=== PATIENT | male | born 1965 | race Caucasian/White ===

== ENCOUNTER 2016-11-15 15:41 | Emergency (ER) | payer MEDICARE ==
[~2016-11-15] VITALS: Ht 187.9 cm; Wt 140.6 kg
[~2016-11-15 15:41] MED LIST: ANDRODERM2.5 MG/24 T; ANORO INHALER INH; ANTIVERT/2525 M1 PO; ASPIR-TRIN325 MG PO; ASPIRIN325 MG PO; ATROVENT I0.5 MG/2.5 INH; AUGMENTIN 75 ML75 ML PO; AUGMENTIN 875-875 MG PO; AVPAK AZITHROM250 M1 PO; BACTRIM DS 8001 TA1 PO; BACTROBAN NASAL1 GM NS; BACTROBAN OINT0.9 GM NAS; BACTROBAN OINT0.9 GM T; BACTROBAN OINT22 GM T; BENADRYL25 M1 PO; BENADRYL50 MG PO; BRIN10TA PO; BUMETANIDE2 MG PO; BUMEX1 MG PO; CEFUROXIME AXE250 MG PO; CELEXA40 MG PO; COUMADIN10 M1 PO; COUMADIN5 M2 PO; COUMADIN6 M2 PO; Ciprofloxacin500 MG PO; DELTASONE5 MG PO; DOXYCYCLINE100 M3 PO; DOXYCYCLINE100 MG PO; DULER200 INH; DUONEB 3 MG/3 ML3 M1 INH; DUONEB 3 MG/3 ML3 M1 NEB; ELIQUIS5 M1 PO; EMLA 2.5% 30GM30 GM T; FIORICET 325 MG1 TAB PO; FISH OIL 10001000 MG PO; FLOMAX0.4 MG PO; FORADIL AERO0.012 MG INH; GLIPIZIDE10 M2 PO; GUAIFENESIN PO; HYDROCODONE BIT1 T11 PO; IMITREX50 MG PO; JANUVIA100 MG PO; KEFLEX500 M1 PO; KLONOPIN1 M1 PO; KLONOPIN1 MG PO; KLOR-CON 1010 ME1 PO; LASIX40 MG PO; LATU40TA PO; LATU40TA2 PO; LEVAQUIN 750MG750 MG IV; LEVEMIR100 U/ML SC; LEVOFLOXACIN500 MG PO; LIDODERM5% TP; LIPITOR10 MG PO; LISINOPRIL2.5 MG PO; MECLIZINE HCL25 M2 PO; MEDROL DOSEPAK4 MG PO; METFORMIN HYDR850 MG PO; METFORMIN1000 MG PO; METFORMIN500 MG PO; METHADONE HYDROC5 MG PO; METHADONE10 MG; METHADONE10 MG PO; MIRALAX17 GM/DOSE; Meclizine25 MG PO; NOVOLIN R100 U/ML; OMEGA-3 FISH1200 MG PO; OMEPRAZOLE20 MG PO; PHENERGAN25 M1 PO; PHENERGAN25 M3 PO; PREDNICOT20 MG PO; PREDNISONE10 MG PO; PREDNISONE5 MG PO; PREDNISONE50 MG PO; PRINIVIL5 M1 PO; PROAIR HFA0.09 MG/AC IH; PROAIR HFA0.09 MG/AC INH; PROPRANOLOL ER80 MG PO; PROPRANOLOL60 MG PO; PULMICORT RESP0.5 M1 INH; RACEPINEPHRINE INH; REGLAN10 MG PO; SINGULAIR10 MG PO; SOLU-MEDROL40 MG IV; SPIRIVA18 MCG PO; TEMAZEPAM30 MG PO; TESSALON PERLE100 M1 PO; TRAZADONE HYDR100 MG; TRAZADONE HYDR100 MG PO; TRAZODONE HYDR150 MG PO; TRAZODONE150 MG PO; TUDORZA; TYLENOL650 M1 PO; ULTRAM50 MG PO; VIBRAMYCIN100 MG PO; XANAX1 MG PO; XARE15TA PO; XARE20MG PO; XARELTO10 PO; XOPENEX0.63 MG INH; ZITHROMAX Z PA250 MG PO; ZITHROMAX250 MG PO; ZOFRAN ODT4 MG SL; ZOFRAN8 MG; ZYRTEC10 MG PO; [UNRECOGNIZED DRUG - OTHER] IM
[2016-11-15 16:39] LABS: BASO # 0.1 10*3/uL (0.0-0.1); BASO % 0.5 % (0.0-1.0); EOS # 0.3 10*3/uL (0.0-0.4); EOS % 2.3 % (1.0-4.0); HEMATOCRIT 42.2 % (42.0-52.0); HEMOGLOBIN 13.9 g/dl (14.0-18.0); IG # 0.1 10*3/uL (0.0-0.1); LYMPH % 34.5 % (27.0-41.0); MEAN CELL VOLUME 80.7 fl (80.0-94.0); MEAN CORPUSCULAR HGB 26.6 pg (27.0-31.0); MEAN CORPUSCULAR HGB CONC 32.9 g/dl (33.0-37.0); MEAN PLATELET VOLUME 10.1 fl (9.6-12.3); MONO # 0.9 10*3/uL (0.1-1.0); MONO % 7.8 % (3.0-9.0); NEUT # 6.3 10*3/uL (2.3-7.9); NEUT % 54.1 % (47.0-73.0); PLATELET COUNT AUTOMATED 326 10*3/uL (130-400); RED BLOOD COUNT 5.23 10*6/uL (4.50-5.90); RED CELL DISTRI WIDTH 14.8 % (0-14.5); WHITE BLOOD COUNT 11.6 10*3/uL (4.8-10.8)
[2016-11-15 16:55] LABS: BUN 13 mg/dl (7-24); CARBON DIOXIDE 30 mmol/L (21-32); CHLORIDE 98 mmol/L (98-107); EST GLOM FILT AFRICAN AMERICAN > 60 ml/min; GLUCOSE 106 mg/dL (65-99); POTASSIUM 3.4 mmol/L (3.5-5.1); SODIUM 140 mmol/L (136-145)
[2016-11-15 16:58] LABS: TROPONIN I < 0.015 ng/ml (<0.045)
[2016-11-15] MEDS ORDERED: DELTASONE20 M1 PO (17:51)
[2016-11-15] MEDS ORDERED: ZITHROMAX250 MG PO (17:51)
[2016-11-15 18:03] VITALS: BP 135/86
== END 2016-11-15 18:04 | disposition home or self-care (01) ==
LOC: ED 15:41
PROVIDERS: Emergency Medicine
DX: J45.21 Mild intermittent asthma with (acute) exacerbation (principal); F41.9 Anxiety disorder, unspecified; I50.9 Heart failure, unspecified; F32.9 Major depressive disorder, single episode, unspecified; Z86.718 Personal history of other venous thrombosis and embolism; G43.909 Migraine, unspecified, not intractable, without status migrainosus; E03.9 Hypothyroidism, unspecified; E11.9 Type 2 diabetes mellitus without complications; Z79.4 Long term (current) use of insulin; Z79.01 Long term (current) use of anticoagulants; Z88.1 Allergy status to other antibiotic agents; Z88.6 Allergy status to analgesic agent; Z88.8 Allergy status to other drugs, medicaments and biological substances; Z99.81 Dependence on supplemental oxygen

== ENCOUNTER 2016-12-11 16:44 | Inpatient (IN) | payer MEDICARE ==
[~2016-12-11] VITALS: Ht 188 cm; Wt 143.4 kg
--- NOTE | ~2016-12-11 | WRIGHTHP ---
[place], [place] PATIENT HISTORY AND PHYSICAL EXAM NAME: CLARE KUMARI [facility] #: [id number] UNIT #: [id number] ROOM: 516 DOCTOR: JESSICA MOYER MD BIRTHDATE: [birth year] DOS: 12/11/2016 HISTORY OF PRESENT ILLNESS: The patient is 51 years old. The patient comes in with complaints of chest pain, retrosternal. The patient states that the pain is behind his sternum, but it does not radiate into the neck or jaw. He does not have any associated shortness of breath. He is chronically short of breath from his underlying COPD. He denies having any fever, chills, cough or sputum production or leg edema. PAST MEDICAL HISTORY: Significant for: 1. Last hospitalization here a year ago in 02/2016 with exacerbation of chronic obstructive pulmonary disease. 2. His other medical problems are type 2 diabetes mellitus. 3. Factor V Leiden mutation. 4. Bipolar disorder. 5. Moderate depression, major recurrent. 6. Chronic pain syndrome. MEDICATIONS: He is on currently are Eliquis 5 mg b.i.d., DuoNeb q.4h., atorvastatin 10 daily, Bumex 2 mg daily, Celexa 40 daily, Klonopin 1 mg b.i.d., glipizide 10 b.i.d., lisinopril 5 daily, Latuda 40 daily, meclizine 25 mg t.i.d., omeprazole 20 b.i.d., propranolol 80 mg daily, Daliresp 500 mcg daily, Januvia 100 mg daily, Brintellix 10 mg at bedtime, trazodone 150 at bedtime. SOCIAL HISTORY: Nonsmoker, does not use any alcohol. PHYSICAL EXAMINATION: GENERAL: He is awake and alert and oriented. VITAL SIGNS: Graphic trend shows the patient, blood pressure 125/61, pulse of 84, respirations 18, temperature 98.3. LUNGS: Diminished breath sounds, clear. HEART: Regular. ABDOMEN: Obese, soft, nontender. EXTREMITIES: Without any edema, chronic stasis changes noticed in both legs. LABORATORY DATA: WBC count is 10.6, hemoglobin 13.6, hematocrit 42.3. Lactic acid 2.4, which is chronic elevation in this patient. Comprehensive glucose 241, BUN 10, creatinine 1.17. Electrolytes were normal. SGOT was 31, SGPT 86, C-reactive protein 0.5, myoglobin is normal. CK-MB less than 0.05. Troponin less than 0.15. ASSESSMENT AND PLAN: 1. This is a 51-year-old who presents with chest pain. He does have risk factors of coronary artery disease. He had a rule out [place] protocol with troponins ordered. So far the second set of troponin is also normal. Cardiology consultation was obtained. Echocardiogram has been ordered, and the patient most likely will undergo a stress test this morning, and if the stress is negative, he should be able to go home. 2. Type 2 diabetes mellitus, non-insulin dependent. Blood sugars will be checked twice daily, right now he is n.p.o. for his stress test. [place], [place] PATIENT HISTORY AND PHYSICAL EXAM [facility]: [facility] [id number] UNIT #: [id number] ROOM: 516 DOCTOR: JESSICA MOYER MD BIRTHDATE: [birth year] 3. Factor Va Leiden mutation on Eliquis, which will be continued. JESSICA MOYER MD CM:HISPHYS:PATIENT HISTORY AND PHYSICAL EXAMINATION [phone] JESSICA MOYER MD 12/12/16 0704 interface
[~2016-12-11 16:44] MED LIST changes: +DELTASONE20 M1 PO
[2016-12-11 17:11] VITALS: BP 124/81
[2016-12-11 17:46] LABS: BASO # 0.1 10*3/uL (0.0-0.1); BASO % 0.5 % (0.0-1.0); EOS # 0.3 10*3/uL (0.0-0.4); EOS % 2.7 % (1.0-4.0); HEMATOCRIT 42.3 % (42.0-52.0); HEMOGLOBIN 13.6 g/dl (14.0-18.0); IG # 0.1 10*3/uL (0.0-0.1); LYMPH # 3.1 10*3/uL (1.3-4.4); LYMPH % 29.8 % (27.0-41.0); MEAN CELL VOLUME 82.5 fl (80.0-94.0); MEAN CORPUSCULAR HGB 26.5 pg (27.0-31.0); MEAN CORPUSCULAR HGB CONC 32.2 g/dl (33.0-37.0); MEAN PLATELET VOLUME 9.7 fl (9.6-12.3); MONO % 9.3 % (3.0-9.0); NEUT % 56.8 % (47.0-73.0); PLATELET COUNT AUTOMATED 338 10*3/uL (130-400); RED BLOOD COUNT 5.13 10*6/uL (4.50-5.90); RED CELL DISTRI WIDTH 14.1 % (0-14.5); WHITE BLOOD COUNT 10.6 10*3/uL (4.8-10.8)
[2016-12-11 17:55] LABS: INTERNATIONAL NORM RATIO 0.9 (2.0-3.5)
[2016-12-11 18:03] LABS: ALBUMIN 3.4 gm/dl (3.1-4.5); ALKALINE PHOSPHATASE 133 U/L (45-117); BILIRUBIN, TOTAL 0.4 mg/dl (0.2-1.0); BUN 10 mg/dl (7-24); C-REACTIVE PROTEIN 0.58 MG/DL (0-0.3); CARBON DIOXIDE 29 mmol/L (21-32); CHLORIDE 102 mmol/L (98-107); CPK 39 U/L (39-308); EST GLOM FILT AFRICAN AMERICAN > 60 ml/min; GLUCOSE 241 mg/dL (65-99); MAGNESIUM 2.1 mg/dL (1.5-2.1); POTASSIUM 3.6 mmol/L (3.5-5.1); SGOT/AST 31 IU/L (3-35); SGPT/ALT 86 U/L (12-78); SODIUM 141 mmol/L (136-145); TOTAL PROTEIN 7.4 gm/dL (6.4-8.2)
[2016-12-11 18:12] LABS: CKMB < 0.5 ng/ml (0.5-3.6); TROPONIN I < 0.015 ng/ml (<0.045)
[2016-12-11 19:42] LABS: LA>2 REFLEX 2 HR DRAW NOW
[2016-12-11 19:50] VITALS: BP 128/77
[2016-12-11 20:40] VITALS: BP 144/80
[2016-12-11 20:45] VITALS: BP 127/64
[2016-12-11] MEDS ORDERED: DALI500T PO (22:44)
[2016-12-12] VITALS: BP 125/61
[2016-12-12 08:00] VITALS: BP 142/88
[2016-12-12 12:00] VITALS: BP 151/88
[2016-12-12 16:00] VITALS: BP 132/81
== END 2016-12-12 18:59 | disposition home or self-care (01) | DRG 206 ==
LOC: ED 16:44 → 5E 19:15 → EDHOLD 19:15 → 5E 19:58
PROVIDERS: Emergency Medicine
DX: M94.0 Chondrocostal junction syndrome [Tietze] (principal); D68.51 Activated protein C resistance; I50.9 Heart failure, unspecified; F31.9 Bipolar disorder, unspecified; E11.9 Type 2 diabetes mellitus without complications; G89.4 Chronic pain syndrome; J44.9 Chronic obstructive pulmonary disease, unspecified; Z86.718 Personal history of other venous thrombosis and embolism; Z85.72 Personal history of non-Hodgkin lymphomas; Z88.1 Allergy status to other antibiotic agents; Z88.8 Allergy status to other drugs, medicaments and biological substances; Z88.6 Allergy status to analgesic agent

== ENCOUNTER 2016-12-15 11:45 | Inpatient (IN) | payer MEDICARE ==
[~2016-12-15] VITALS: Ht 187.9 cm; Wt 137.0 kg
--- NOTE | ~2016-12-15 | EKG ---
[place], [place] ELECTROCARDIOGRAM REPORT NAME: CLARE KUMARI UNIT #: [id number] ROOM: 412 DOCTOR: TEODORA BUENO MD BIRTHDATE: [birth year] DOS: 12/15/2016 TIME: 12:44. FINDINGS: Normal sinus rhythm, normal electrocardiogram, marked baseline abnormality. TEDOORA BUENO MD CM:EKGRPT:ELECTROCARDIOGRAM REPORT 50 28 TEODORA BUENO MD
--- NOTE | ~2016-12-15 | O ---
[place], [place] OPERATIVE NOTE [id number] UNIT #: [id number] ROOM: 412 DOCTOR: SHAHAB KUMAR,BUDDY BIRTHDATE: [birth year] DOS: 12/20/2016 INDICATIONS: This is a 51-year-old patient who was presented with history of Streptococcus bovis infection, concerned about colonic lesion. I have been asked for assessment of the patient regarding colonic screening. PROCEDURE: Today's procedure part of investigation colonoscopy. PREMEDICATION: Versed and Diprivan. SCOPE: Olympus forward-viewing colonoscope 10L video. REPORT: After putting the patient in the left lateral position and after application of lubricant to the scope, the scope was introduced. Thereafter, under direct visualization, I advanced through the length of colon with great difficulty. Difficulty being retained stool all along. Despite the fact that I did several lavage, detailed visualization was fruitless. Therefore, the scope was withdrawn from the right colon. The patient extubated, tolerated procedure well. IMPRESSION: Retained stool. PLAN AND DISCUSSION: We are going to re-prep the patient and reattempt on Sunday. BUDDY GUDINO MD CM:OPRECORD:OPERATIVE NOTE [id number] BUDDY GUDINO MD 12/20/16 1059 interface
--- NOTE | ~2016-12-15 | PR ---
[place], [place] PROGRESS NOTE [id number] UN[facility] #: [id number] ROOM: 412 DOCTOR: SPARKLE CONTRERAS MD BIRTHDATE: [birth year] DOS: 12/17/2016 SUBJECTIVE: The patient is feeling well, no new complaints. OBJECTIVE: VITAL SIGNS: Blood pressure 132/73, heart rate of 90 beats per minute, breathing 22 times per minute, afebrile, morbid obesity. GENERAL APPEARANCE: Generalized weakness. The patient is alert and oriented x 3, in no visible distress. HEENT AND NECK: Exam within normal limits. CARDIOVASCULAR SYSTEM: Heart rate is regular in rate and rhythm. S1 and S2 normally audible. LUNGS: Clear to auscultation. ABDOMEN: Soft, nontender. No obvious organomegaly. Bowel sounds are present. EXTREMITIES: Without significant cyanosis or edema. Stasis dermatitis in the legs bilaterally. IMPRESSION: 1. The patient's Streptococcus bovis is positive blood cultures. The patient is going for colonoscopy to look for any adenocarcinoma of the colon tomorrow. 2. Check echocardiogram to look for any endocarditis because of positive blood cultures. Streptococcus bovis positive blood cultures. Being treated with IV vancomycin. If he has no signs of vegetations or malignancy, then he can be discharged to home on oral antibiotics within a couple of days. SPARKLE CONTRERAS MD CM:PNTRANS [phone] SPARKLE CONTRERAS MD 12/18/16 1009 interface
--- NOTE | ~2016-12-15 | PR ---
[place], [place] PROGRESS NOTE [id number] UNIT #: [id number] ROOM: 412 DOCTOR: JESSICA MOYER MD BIRTHDATE: [birth year] DOS: 12/18/2016 SUBJECTIVE: The patient is about the same. The patient is not having any complaints. He was fast asleep in bed this morning, was difficult to arouse him on while I was talking to him fell asleep. OBJECTIVE: VITAL SIGNS: Graphic trend shows a pressure 153/79, pulse of 92, respirations 20, temperature 98.0. LUNGS: Clear. HEART: Regular. ABDOMEN: Obese, soft. EXTREMITIES: Without any edema. LABORATORY DATA: Blood cultures drawn on the one specimen grew Strep bovis, the rest were negative. Blood cultures drawn on the preliminary came back negative. ASSESSMENT AND PLAN: 1. Strep bovis bacteremia, awaiting colonoscopy tomorrow. Repeat cultures have all come back negative. Vancomycin trough is very high. The medicine is on hold. 2. Recent admission for chest pain, ruled out for an [place], negative stress test, negative echocardiogram. 3. Type 2 diabetes mellitus, non-insulin dependent. Blood sugars have not been checked since admission. Will order blood sugar coverage. JESSICA MOYER MD CM:PNTRANS [phone] JESSICA MOYER MD 12/19/16 0855 interface
--- NOTE | ~2016-12-15 | CON ---
[place], [place] REPORT OF CONSULTATION NAME: CLARE KUMARI [facility] #: [id number] UNIT #: [id number] ROOM: 412 DOCTOR: MARIIA GUDINO [facility] BIRTHDATE: [birth year] DOS: 12/15/2016 GASTROENDOSCOPIC CONSULTATION REPORT HISTORY OF PRESENT ILLNESS: The patient is a 51-year-old who has presented with chills, not feeling well, diarrhea, change in bowel habits for the past 2 months. He says he has lost control of his stooling. In addition to his problems, he has cellulitis of lower extremities and edema, morbid obesity, in addition to fine tremors. PAST MEDICAL HISTORY: Recently, he has been blood cultured and was found to have Streptococcus bovis in his blood culture. Hypertension, diabetes mellitus, obesity, cellulitis of lower extremities, non-Hodgkin lymphoma, COPD, congestive heart failure, anxiety, asthma. PAST SURGICAL HISTORY: Endoscopy of upper tract, never colonoscopy. SOCIAL HISTORY: Never smoker and never alcohol consumer. However, has been exposed as a child to secondhand smoking. ALLERGIES: CODEINE, NUBAIN, LEVOFLOXACIN, , METFORMIN. MEDICATION: List has been reviewed. FAMILY HISTORY: Supportive. REVIEW OF SYSTEMS: HEENT: Denies double vision, blurred vision. RESPIRATORY: Denies acute shortness of breath. CARDIOVASCULAR: Denies chest pain. DIGESTIVE SYSTEM: No hematemesis, no hematochezia; however, loss of control of stooling and liquid stool, change in bowel habits. PHYSICAL EXAMINATION: GENERAL: Morbidly obese. HEENT: Head normocephalic, nontraumatic. Mouth and buccal mucosa benign. NECK: Supple, no thyromegaly. CHEST: Symmetric anatomy, decreased air entry. HEART: Normal sinus rhythm, no gallop, no murmur. ABDOMEN: Obese, large, soft. No hepato-organomegaly can be assessed due to the enormity of the size of the abdomen. Bowel sounds present. EXTREMITIES: The scratch rogers of cellulitis and stasis dermatitis and 2+ edema bilaterally in lower extremities noticed. NEUROLOGIC: Fine tremors of both hands was noticed. Otherwise, alert and oriented, no asterixis, otherwise no encephalopathy. LABORATORY DATA: Reviewed. Records reviewed. Cultures were assessed. His lactic acid was 1.9. Comprehensive metabolic panel essentially unremarkable except potassium of 3.2, which has been addressed with potassium 40K. Streptococcus bovis in his culture of blood at one occasion has been seen. [place], [place] REPORT OF CONSULTATION NAME: CLARE KUMARI UNIT #: [id number] ROOM: 412 DOCTOR: SHAHAB KUMAR,BUDDY BIRTHDATE: [birth year] Myocardial perfusion scans were noticed, details as outlined. Troponin normal. PLAN AND DISCUSSION: Continuation of his antibiotic therapy. We are going to organize a colonoscopy as soon as he is more controlled and his sepsis is under effective management. Thank you very much indeed. OTHER ADJUNCTIVE DIAGNOSES: As outlined in paragraph past medical, surgical history including non-Hodgkin lymphoma, congestive heart failure, essential hypertension, chronic obstructive pulmonary disease, diabetes mellitus, cellulitis of lower extremity as identified otherwise. BUDDY GUDINO MD CM:CONSTR:REPORT OF CONSULTATION 37 12/16/16 0458 interface
--- NOTE | ~2016-12-15 | DS ---
[place], [place] DISCHARGE SUMMARY NAME: CLARE KUMARI [facility] #: [id number] UNIT #: [id number] ROOM: 412 DOCTOR: SPARKLE CONTRERAS MD BIRTHDATE: [birth year] DOS: 12/20/2016 DATE OF DISCHARGE: 12/20/2016 DISCHARGE DIAGNOSES: 1. The patient going for colonoscopy by Dr. Fung today because of Streptococcus bovis, positive blood cultures. 2. No signs of endocarditis on echocardiogram performed on the 12 of December during his last admission under Dr. Clinton. 3. Morbid obesity. 4. Chronic obstructive pulmonary disease. 5. Type 2 diabetes mellitus. 6. Factor V Leiden mutation. 7. Bipolar disorder. 8. Major depression, recurrent, moderate. 9. Chronic pain syndrome. 10. Chronic primary insomnia. 11. History of benign essential hypertension. 12. Mixed hyperlipidemia. 13. History of stasis dermatitis involving both legs. HOSPITAL COURSE: The patient was admitted because blood cultures from his previous admission came positive for Streptococcus bovis. The patient was admitted and Dr. Fung was consulted to perform a colonoscopy, he will look for adenocarcinoma of the colon. Another reason for admission was to treat him for positive blood cultures with IV vancomycin. The patient had also developed leukocytosis with white cell count up to 11,300. The patient developed severe abdominal pains, which were evaluated by Dr. Noyola, the surgeon and CT scan of the abdomen was found to be normal. Symptoms have improved. Stool for C. diff was negative. Recent admission for chest pains, when he was ruled out for myocardial infarction by Dr. Margaret Clinton and had a normal cardiac stress test. If the patient is doing well after colonoscopy and cleared by Dr. Fung, he can be discharged to home to follow up as an outpatient next week at the office. LABORATORY DATA: Serum electrolytes are normal. Echocardiogram results as mentioned above. C. diff toxin was negative. CT of the abdomen and pelvis were without any acute abnormality. DISCHARGE MANAGEMENT: The patient will be on Augmentin 875 mg twice a day for a week at home, Tylenol p.r.n., Daliresp 500 mcg daily, propranolol 80 mg a day, lisinopril 5 mg a day, citalopram 40 mg a day, Bumex 2 mg daily, glipizide 10 mg a day, Brintellix via nebulizer twice a day, trazodone 150 mg at bedtime, meclizine 25 mg t.i.d. Latuda 40 mg a day, atorvastatin 10 mg a day, apixaban 5 mg b.i.d., omeprazole 20 mg b.i.d., DuoNebs q.i.d., clonazepam 1 mg b.i.d. [place], [place] DISCHARGE SUMMARY NAME: CLARE KUMARI UNIT #: [id number] ROOM: [facility] DOCTOR: SPARKLE CONTRERAS MD BIRTHDATE: [birth year] Follow up at the office next week. SPARKLE CONTRERAS MD CM:MARISELA [id number] SPARKLE CONTRERAS MD 12/20/16 8535 interface
--- NOTE | ~2016-12-15 | WRIGHTHP ---
[place], [place] PATIENT HISTORY AND PHYSICAL EXAM NAME: CLARE KUMARI [facility] #: [id number] UNIT #: [id number] ROOM: 412 DOCTOR: SPARKLE CONTRERAS MD BIRTHDATE: [birth year] DOS: 12/16/2016 HISTORY OF PRESENT ILLNESS: The patient is 51 years old with a past medical history of, 1. Morbid obesity. 2. Chronic obstructive pulmonary disease. 3. Type 2 diabetes mellitus. 4. Factor V Leiden mutation. 5. Bipolar disorder. 6. Major depression, recurrent, moderate. 7. Chronic pain syndrome. 8. Insomnia. 9. Benign essential hypertension. 10. Mixed hyperlipidemia. 11. Stasis dermatitis involving both legs. The patient was admitted to [facility]. The patient was admitted because his blood cultures from recent admission came positive for Streptococcus bovis in 1 of the bottles. The patient admitted for treatment with IV antibiotics and also for getting a colonoscopy and an echocardiogram to look for any bowel tumor or endocarditis. The patient is feeling better now, breathing has improved. No chest pains. No increasing shortness of breath. No other GI or urinary symptoms, just generalized weakness. REVIEW OF SYSTEMS: Negative except for above-mentioned problems. LUNGS: No increasing shortness of breath or wheezing. GASTROINTESTINAL: No nausea, vomiting, diarrhea or constipation. CARDIOVASCULAR SYSTEM: No chest pains or palpitations. FAMILY HISTORY: Noncontributory. HOME MEDICATIONS: Januvia, Daliresp, propranolol, lisinopril, citalopram, Bumex, glipizide, Brintellix, trazodone, meclizine, Latuda, Lipitor, apixaban, omeprazole, DuoNebs, clonazepam. ALLERGIES: KNOWN ALLERGIES TO METFORMIN, NUBAIN, LEVAQUIN, RITUXAN. PHYSICAL EXAMINATION: GENERAL: Alert and oriented x 3, in no visible distress, morbidly obese, generalized weakness. HEENT AND NECK: Extraocular movements are intact. Sclerae are anicteric. Oral mucosa is moist and clean. No obvious facial weakness. Neck is supple without any lymphadenopathy. No thyromegaly. No JVD. No carotid arterial bruits. LUNGS: Slight expiratory wheezing. CARDIOVASCULAR SYSTEM: Heart rate is regular in rate and rhythm. S1 and S2 normally audible. No significant murmur or any other abnormal cardiac sounds. ABDOMEN: Soft, nontender. No obvious organomegaly. Bowel sounds are present. No obvious herniation. EXTREMITIES: Without significant cyanosis or edema. Warm to touch. CENTRAL NERVOUS SYSTEM: Alert and oriented x 3. Cranial nerves II-XII are [place], [place] PATIENT HISTORY AND PHYSICAL EXAM NAME: CLARE KUMARI UNIT #: [id number] ROOM: 412 DOCTOR: SPARKLE CONTRERAS MD BIRTHDATE: [birth year] intact. Speech is normal. The patient is able to move all extremities. Normal muscle strength. Deep tendon reflexes are equal on both sides. Plantars were downgoing. LABORATORY DATA: Hemoglobin 12.7, otherwise normal CBC. Lactic acid at 2.6, reduced to 1.4 when checked again. IMPRESSION: 1. The patient with Streptococcus bovis. Blood cultures positive, admitted and we will check an echocardiogram and also a colonoscopy and treat him with IV vancomycin. 2. Recent exacerbation of chronic obstructive pulmonary disease, which is being treated with antibiotics, oxygen and nebulizer treatments. The patient says he is breathing better. 3. Coagulopathy with Factor V Leiden mutation, patient on apixaban. 4. Type 2 diabetes mellitus. Blood sugars will be monitored and treated and he will be kept on a no concentrated sweet diet. SPARKLE CONTRERAS MD CM:HISPHYS:PATIENT HISTORY AND PHYSICAL EXAMINATION 31 [phone] SPARKLE CONTRERAS MD 12/18/16 0528 interface
--- NOTE | ~2016-12-15 | PR ---
[place], [place] PROGRESS NOTE [id number] UNIT #: [id number] ROOM: 412 DOCTOR: SPARKLE CONTRERAS MD BIRTHDATE: [birth year] DOS: 12/21/2016 SUBJECTIVE: The patient is doing well, asymptomatic, to be discharged to home today, so he can follow up for his colonoscopy tomorrow. OBJECTIVE: VITAL SIGNS: Blood pressure 128/68, heart rate 97 beats per minute, breathing 18 times per minute, temperature 98 degrees Fahrenheit, afebrile. GENERAL: The patient is alert and oriented x 3, in no visible distress. Morbid obesity and generalized weakness. HEENT AND NECK: Exam within normal limits. CARDIOVASCULAR SYSTEM: Heart rate is regular in rate and rhythm. S1 and S2 normally audible. LUNGS: Somewhat decreased breath sounds. ABDOMEN: Soft, nontender. No obvious organomegaly. Bowel sounds are present. EXTREMITIES: Without significant cyanosis or edema. IMPRESSION: 1. The patient is positive for Streptococcus bovis in blood cultures, treated with IV vancomycin. The patient to be continued on Augmentin at home. 2. The patient to undergo colonoscopy to look for adenocarcinoma because of the positive Strep bovis blood cultures. He failed colonoscopy yesterday because of poor prep, but he is scheduled for another colonoscopy tomorrow after a re-prep by Dr. Fung. 3. Type 2 diabetes mellitus. Blood sugars monitored, controlled. 4. Adult failure to thrive with multiple medical problems including chronic obstructive pulmonary disease, breathing issues and recurrent admissions to the hospital and ER visits for the same reason. 5. Benign essential hypertension with controlled blood pressures. The patient to go home today, follow up for colonoscopy tomorrow and see me in the office on Sunday. SPARKLE CONTRERAS MD CM:PNTRANS [phone] SPARKLE CONTRERAS MD 12/22/16 0141 interface
--- NOTE | ~2016-12-15 | PR ---
[place], [place] PROGRESS NOTE [id number] UNIT #: [id number] ROOM: 412 DOCTOR: JESSICA MOYER MD BIRTHDATE: [birth year] DOS: 12/18/2016 SUBJECTIVE: The patient is doing fine without any complaints. He is pretty sleepy this morning, does not have any complaints of chest pains or palpitations, is awaiting echocardiogram and colonoscopy. OBJECTIVE: VITAL SIGNS: Graphic trend shows that he is afebrile. Blood pressure is 152/84, pulse of 86, respirations 18, temperature 97.4. LUNGS: Diminished breath sounds. No wheezes, rales or rhonchi heard. HEART: Regular. ABDOMEN: Obese, soft. EXTREMITIES: Without any edema. ASSESSMENT AND PLAN: 1. Streptococcus bovis bacteremia. The patient is getting an echocardiogram today to rule out endocarditis. Repeat blood cultures so far have come back negative. This culture was drawn on a peripheral site, not from his [employer]. 2. Recent complaints of chest pain for which he was ruled out with a negative stress test. 3. Strep bovis bacteremia. Colonoscopy is to be done today. Repeat blood cultures on the 12/15/2016 drawn in the ER this admission have preliminary showed no bacterial growth. CT of the abdomen and pelvis was also unremarkable except for steatohepatitis. White cell count is elevated at 11.0. Comprehensive is normal. JESSICA MOYER MD CM:PNMARY JANE [id number] JESSICA MOYER MD 12/18/16 0822 interface
[~2016-12-15 11:45] MED LIST changes: +DALI500T PO
[2016-12-15 11:53] VITALS: BP 135/81
[2016-12-15 13:12] LABS: BASO # 0.1 10*3/uL (0.0-0.1); BASO % 0.7 % (0.0-1.0); EOS # 0.2 10*3/uL (0.0-0.4); EOS % 1.7 % (1.0-4.0); HEMATOCRIT 43.2 % (42.0-52.0); HEMOGLOBIN 14.3 g/dl (14.0-18.0); IG # 0.1 10*3/uL (0.0-0.1); LYMPH # 3.1 10*3/uL (1.3-4.4); LYMPH % 34.2 % (27.0-41.0); MEAN CELL VOLUME 79.9 fl (80.0-94.0); MEAN CORPUSCULAR HGB 26.4 pg (27.0-31.0); MEAN CORPUSCULAR HGB CONC 33.1 g/dl (33.0-37.0); MEAN PLATELET VOLUME 9.9 fl (9.6-12.3); MONO # 0.9 10*3/uL (0.1-1.0); MONO % 9.8 % (3.0-9.0); NEUT # 4.7 10*3/uL (2.3-7.9); NEUT % 52.6 % (47.0-73.0); PLATELET COUNT AUTOMATED 336 10*3/uL (130-400); RED BLOOD COUNT 5.41 10*6/uL (4.50-5.90); RED CELL DISTRI WIDTH 13.9 % (0-14.5)
[2016-12-15 13:32] LABS: ALBUMIN 3.7 gm/dl (3.1-4.5); ALKALINE PHOSPHATASE 132 U/L (45-117); BILIRUBIN, TOTAL 0.5 mg/dl (0.2-1.0); BUN 7 mg/dl (7-24); CARBON DIOXIDE 30 mmol/L (21-32); CHLORIDE 99 mmol/L (98-107); EST GLOM FILT AFRICAN AMERICAN > 60 ml/min; GLUCOSE 173 mg/dL (65-99); POTASSIUM 3.2 mmol/L (3.5-5.1); SGOT/AST 58 IU/L (3-35); SGPT/ALT 101 U/L (12-78); SODIUM 139 mmol/L (136-145); TOTAL PROTEIN 7.8 gm/dL (6.4-8.2)
[2016-12-15 13:35] LABS: TROPONIN I < 0.015 ng/ml (<0.045)
[2016-12-15 15:06] VITALS: BP 136/88
[2016-12-15 15:07] LABS: LA>2 REFLEX 2 HR DRAW NOW
[2016-12-15 15:25] VITALS: BP 144/82
[2016-12-15 16:00] VITALS: BP 144/82
[2016-12-15 20:00] VITALS: BP 144/83
[2016-12-16] VITALS: BP 151/83
[2016-12-16 06:40] LABS: BASO # 0.1 10*3/uL (0.0-0.1); BASO % 0.7 % (0.0-1.0); EOS # 0.2 10*3/uL (0.0-0.4); EOS % 2.1 % (1.0-4.0); HEMATOCRIT 38.7 % (42.0-52.0); HEMOGLOBIN 12.7 g/dl (14.0-18.0); IG # 0.1 10*3/uL (0.0-0.1); LYMPH # 3.5 10*3/uL (1.3-4.4); LYMPH % 41.3 % (27.0-41.0); MEAN CELL VOLUME 81.6 fl (80.0-94.0); MEAN CORPUSCULAR HGB 26.8 pg (27.0-31.0); MEAN CORPUSCULAR HGB CONC 32.8 g/dl (33.0-37.0); MEAN PLATELET VOLUME 9.9 fl (9.6-12.3); MONO # 0.8 10*3/uL (0.1-1.0); MONO % 9.7 % (3.0-9.0); NEUT # 3.8 10*3/uL (2.3-7.9); NEUT % 45.4 % (47.0-73.0); PLATELET COUNT AUTOMATED 289 10*3/uL (130-400); RED BLOOD COUNT 4.74 10*6/uL (4.50-5.90); WHITE BLOOD COUNT 8.4 10*3/uL (4.8-10.8)
[2016-12-16 06:59] LABS: BUN 8 mg/dl (7-24); CARBON DIOXIDE 33 mmol/L (21-32); CHLORIDE 101 mmol/L (98-107); EST GLOM FILT AFRICAN AMERICAN > 60 ml/min; GLUCOSE 181 mg/dL (65-99); POTASSIUM 3.9 mmol/L (3.5-5.1); SODIUM 142 mmol/L (136-145)
[2016-12-16 08:00] VITALS: BP 146/80
[2016-12-16 12:00] VITALS: BP 150/79
[2016-12-16 16:00] VITALS: BP 149/84
[2016-12-16 20:00] VITALS: BP 131/84
[2016-12-17] VITALS: BP 123/69
[2016-12-17 04:00] VITALS: BP 125/60
[2016-12-17 05:58] LABS: BUN 10 mg/dl (7-24); CARBON DIOXIDE 33 mmol/L (21-32); CHLORIDE 100 mmol/L (98-107); EST GLOM FILT AFRICAN AMERICAN > 60 ml/min; GLUCOSE 207 mg/dL (65-99); POTASSIUM 3.8 mmol/L (3.5-5.1); SODIUM 141 mmol/L (136-145)
[2016-12-17 06:01] LABS: VANCOMYCIN TROUGH 17.5 ug/mL (10-20)
[2016-12-17 06:09] LABS: BASO # 0.1 10*3/uL (0.0-0.1); BASO % 0.6 % (0.0-1.0); EOS # 0.2 10*3/uL (0.0-0.4); EOS % 2.1 % (1.0-4.0); HEMATOCRIT 40.1 % (42.0-52.0); HEMOGLOBIN 12.7 g/dl (14.0-18.0); IG # 0.2 10*3/uL (0.0-0.1); LYMPH # 4.2 10*3/uL (1.3-4.4); LYMPH % 37.7 % (27.0-41.0); MEAN CELL VOLUME 84.2 fl (80.0-94.0); MEAN CORPUSCULAR HGB 26.7 pg (27.0-31.0); MEAN CORPUSCULAR HGB CONC 31.7 g/dl (33.0-37.0); MEAN PLATELET VOLUME 10.3 fl (9.6-12.3); MONO # 1.1 10*3/uL (0.1-1.0); MONO % 10.1 % (3.0-9.0); NEUT # 5.4 10*3/uL (2.3-7.9); NEUT % 48.2 % (47.0-73.0); PLATELET COUNT AUTOMATED 304 10*3/uL (130-400); RED BLOOD COUNT 4.76 10*6/uL (4.50-5.90); WHITE BLOOD COUNT 11.3 10*3/uL (4.8-10.8)
[2016-12-17 08:00] VITALS: BP 138/86
[2016-12-17 12:00] VITALS: BP 122/73
[2016-12-17 16:00] VITALS: BP 132/73
[2016-12-17 20:00] VITALS: BP 130/70
[2016-12-18 00:38] VITALS: BP 139/76
[2016-12-18 04:00] VITALS: BP 152/84
[2016-12-18 06:12] LABS: BASO # 0.1 10*3/uL (0.0-0.1); BASO % 0.5 % (0.0-1.0); EOS # 0.3 10*3/uL (0.0-0.4); EOS % 2.5 % (1.0-4.0); HEMATOCRIT 39.8 % (42.0-52.0); HEMOGLOBIN 12.6 g/dl (14.0-18.0); IG # 0.1 10*3/uL (0.0-0.1); LYMPH # 3.9 10*3/uL (1.3-4.4); LYMPH % 35.3 % (27.0-41.0); MEAN CELL VOLUME 82.7 fl (80.0-94.0); MEAN CORPUSCULAR HGB 26.2 pg (27.0-31.0); MEAN CORPUSCULAR HGB CONC 31.7 g/dl (33.0-37.0); MEAN PLATELET VOLUME 10.4 fl (9.6-12.3); MONO % 9.5 % (3.0-9.0); NEUT # 5.6 10*3/uL (2.3-7.9); PLATELET COUNT AUTOMATED 274 10*3/uL (130-400); RED BLOOD COUNT 4.81 10*6/uL (4.50-5.90); RED CELL DISTRI WIDTH 13.9 % (0-14.5)
[2016-12-18 06:42] LABS: ALBUMIN 3.2 gm/dl (3.1-4.5); BUN 10 mg/dl (7-24); CARBON DIOXIDE 31 mmol/L (21-32); CHLORIDE 102 mmol/L (98-107); EST GLOM FILT AFRICAN AMERICAN > 60 ml/min; GLUCOSE 189 mg/dL (65-99); POTASSIUM 3.5 mmol/L (3.5-5.1); SGOT/AST 24 IU/L (3-35); SGPT/ALT 71 U/L (12-78); SODIUM 136 mmol/L (136-145)
[2016-12-18 06:45] LABS: ALKALINE PHOSPHATASE 117 U/L (45-117); BILIRUBIN, TOTAL 0.3 mg/dl (0.2-1.0); CEA 3.8 ng/mL; TOTAL PROTEIN 6.7 gm/dL (6.4-8.2)
[2016-12-18 08:00] VITALS: BP 150/72
[2016-12-18 12:00] VITALS: BP 128/90
[2016-12-18 16:00] VITALS: BP 108/87
[2016-12-18 20:00] VITALS: BP 129/77
[2016-12-19] VITALS: BP 153/79
[2016-12-19 08:00] VITALS: BP 156/83
[2016-12-19 12:00] VITALS: BP 142/73
[2016-12-19 16:00] VITALS: BP 145/71
[2016-12-19 20:00] VITALS: BP 154/89
[2016-12-20] VITALS (9 sets, daily range): BP systolic 111–153; BP diastolic 69–83
[2016-12-20] MEDS ORDERED: AUGMENTIN 875-875 MG PO (10:10)
[2016-12-21] VITALS: BP 138/83
[2016-12-21 08:00] VITALS: BP 128/68
[2016-12-21 12:00] VITALS: BP 136/72
[2016-12-21 16:00] VITALS: BP 122/82
== END 2016-12-21 18:06 | disposition home health service (06) | DRG 392 ==
LOC: ED 11:45 → 4E 13:47 → EDHOLD 13:47 → 4E 14:33
PROVIDERS: Internal Medicine; Student in an Organized Health Care Education/Training Program
PROC: 0DBE8ZX Excision of Large Intestine, Via Natural or Artificial Opening Endoscopic, Diagnostic (ICD-10-PCS; principal; 2016-12-20)
DX: K59.00 Constipation, unspecified (principal); D68.51 Activated protein C resistance; E11.8 Type 2 diabetes mellitus with unspecified complications; R78.81 Bacteremia; D68.2 Hereditary deficiency of other clotting factors; I11.0 Hypertensive heart disease with heart failure; I50.9 Heart failure, unspecified; E66.01 Morbid (severe) obesity due to excess calories; L03.119 Cellulitis of unspecified part of limb; R19.7 Diarrhea, unspecified; F31.9 Bipolar disorder, unspecified; R07.9 Chest pain, unspecified; G89.4 Chronic pain syndrome; E78.2 Mixed hyperlipidemia; I87.2 Venous insufficiency (chronic) (peripheral); Z88.1 Allergy status to other antibiotic agents; Z88.5 Allergy status to narcotic agent; Z88.8 Allergy status to other drugs, medicaments and biological substances; Z68.39 Body mass index [BMI] 39.0-39.9, adult; B95.4 Other streptococcus as the cause of diseases classified elsewhere; G43.909 Migraine, unspecified, not intractable, without status migrainosus; Z82.49 Family history of ischemic heart disease and other diseases of the circulatory system; F41.9 Anxiety disorder, unspecified; R62.7 Adult failure to thrive; J44.9 Chronic obstructive pulmonary disease, unspecified; R10.9 Unspecified abdominal pain

== ENCOUNTER 2016-12-15 11:45 | Day surgery (SDC) | payer MEDICARE ==
[~2016-12-15] VITALS: Ht 187.9 cm; Wt 141.1 kg
--- NOTE | ~2016-12-15 | O ---
[place], [place] OPERATIVE NOTE NAME: CLARE KUMARI [facility] #: [id number] UNIT #: [id number] ROOM: DOCTOR: SHAHAB KUMAR,[facility] BIRTHDATE: [birth year] DOS: 12/22/2016 GASTROENDOSCOPIC REPORT INDICATIONS: The patient has presented with multiple medical problems, among which was sepsis. Strep bovis was cultured in his blood. He has been on antibiotic. He was sent home yesterday and brought back as outpatient for assessment of the colon. He had pulmonary infiltration that was addressed. PROCEDURE: Today's procedure part of investigation is colonoscopy plus multiple polypectomies and biopsies and tattoo markings. PREMEDICATION: Versed and Diprivan. SCOPE: Olympus colonoscope 10L video. REPORT: After putting the patient in the left lateral position and after application of lubricant to rectal pouch and digital examination, scope was introduced. Thereafter, under direct visualization, I advanced through the length of colon without difficulty. Base of the cecum explored, appendiceal orifice identified, and ileocecal valve was identified. Some retained stool in the cecum was identified. However, the scope was gradually withdrawn to the hepatic flexure, 3 ____ polypoid lesions were snare polypectomized. Scope was withdrawn to about 40 cm. There was an invaded polypoid lesion with broad base and rubbery character. This was multiple times, biopsied. This was considered to be adenocarcinoma, site was tattoo marked. Scope was again withdrawn back to approximately 20 cm, another infiltrative polypoid lesion was identified. This was again approximately 2.5-3 cm, the site was tattooed and biopsies obtained expecting again carcinoma. Scope was gradually withdrawn. The patient extubated, tolerated the procedure well. IMPRESSION: Three ____ polypoid lesions at the hepatic flexure, status post snare polypectomy. Two polypoid lesions at sigmoid colon 40 cm and 20 cm area with invasion of the base, each approximately 3 cm, expected to be adenocarcinoma in both, photographed, biopsied. The patient extubated, tolerated procedure well. Tattoo marking was done. PLAN AND DISCUSSION: Awaiting biopsy results. Strep bovis can be explained based on carcinoma polypoid lesions in the sigmoid at 40 cm as well as 20 cm, which is both biopsied, photographed, and tattoo marked. Continuation with the same plans of antibiotic and followup as outpatient for surgical management. [place], [place] OPERATIVE NOTE NAME: CLARE KUMARI UNIT #: [id number] ROOM: DOCTOR: SHAHAB KUMAR,BUDDY BIRTHDATE: [birth year] BUDDY GUDINO MD CM:OPRECORD:OPERATIVE NOTE [phone] SPARKLE CONTRERAS MD and JESSICA GUDINO MD 12/23/16 0632 interface
[2016-12-20] MEDS ORDERED: AUGMENTIN 875-875 MG PO (10:10)
[2016-12-22 15:00] VITALS: BP 130/91
[2016-12-22 17:31] VITALS: BP 94/56
[2016-12-22 17:46] VITALS: BP 112/56
[2016-12-22 18:01] VITALS: BP 118/47
== END 2016-12-22 | disposition home or self-care (01) ==
LOC: SDC 12-22 07:43 → EDSTATUS 12-22 13:00
DX: Z12.11 Encounter for screening for malignant neoplasm of colon (principal); D12.3 Benign neoplasm of transverse colon; D12.5 Benign neoplasm of sigmoid colon; E66.01 Morbid (severe) obesity due to excess calories; J44.9 Chronic obstructive pulmonary disease, unspecified; E11.9 Type 2 diabetes mellitus without complications; F31.9 Bipolar disorder, unspecified; D68.51 Activated protein C resistance; G47.00 Insomnia, unspecified; E78.2 Mixed hyperlipidemia; A40.0 Sepsis due to streptococcus, group A

== ENCOUNTER 2017-03-09 23:54 | Emergency (ER) | payer MEDICARE ==
[~2017-03-09] VITALS: Ht 187.9 cm; Wt 124.7 kg
[2017-03-10 00:01] VITALS: BP 118/62
[2017-03-10 01:01] LABS: BASO # 0.1 10*3/uL (0.0-0.1); BASO % 0.8 % (0.0-1.0); EOS # 0.3 10*3/uL (0.0-0.4); EOS % 2.2 % (1.0-4.0); HEMOGLOBIN 13.7 g/dl (14.0-18.0); IG # 0.1 10*3/uL (0.0-0.1); LYMPH % 42.5 % (27.0-41.0); MEAN CELL VOLUME 81.7 fl (80.0-94.0); MEAN CORPUSCULAR HGB 26.7 pg (27.0-31.0); MEAN CORPUSCULAR HGB CONC 32.6 g/dl (33.0-37.0); MEAN PLATELET VOLUME 10.1 fl (9.6-12.3); MONO # 1.1 10*3/uL (0.1-1.0); MONO % 9.2 % (3.0-9.0); NEUT # 5.2 10*3/uL (2.3-7.9); NEUT % 44.5 % (47.0-73.0); PLATELET COUNT AUTOMATED 295 10*3/uL (130-400); RED BLOOD COUNT 5.14 10*6/uL (4.50-5.90); RED CELL DISTRI WIDTH 15.4 % (0-14.5); WHITE BLOOD COUNT 11.8 10*3/uL (4.8-10.8)
[2017-03-10 01:15] LABS: ALBUMIN 3.2 gm/dl (3.1-4.5); ALKALINE PHOSPHATASE 150 U/L (45-117); BILIRUBIN, TOTAL 0.3 mg/dl (0.2-1.0); BUN 7 mg/dl (7-24); CARBON DIOXIDE 32 mmol/L (21-32); CHLORIDE 98 mmol/L (98-107); EST GLOM FILT AFRICAN AMERICAN > 60 ml/min; GLUCOSE 143 mg/dL (65-99); POTASSIUM 3.3 mmol/L (3.5-5.1); SGOT/AST 45 IU/L (3-35); SGPT/ALT 74 U/L (12-78); SODIUM 139 mmol/L (136-145); TOTAL PROTEIN 7.5 gm/dL (6.4-8.2)
== END 2017-03-10 02:38 | disposition home or self-care (01) ==
LOC: ED 23:54
PROVIDERS: Emergency Medicine
DX: R10.84 Generalized abdominal pain (principal); R11.0 Nausea; Z88.6 Allergy status to analgesic agent; Z88.1 Allergy status to other antibiotic agents; Z88.8 Allergy status to other drugs, medicaments and biological substances; Z79.899 Other long term (current) drug therapy

== ENCOUNTER 2017-03-17 23:26 | Emergency (ER) | payer MEDICARE ==
[~2017-03-17] VITALS: Ht 187.9 cm; Wt 123.8 kg
[~2017-03-17 23:26] MED LIST changes: +MIRALAX POWDER255 G1 PO; +PERCOCET 325 MG1 TA2 PO
[2017-03-17 23:36] VITALS: BP 135/81
[2017-03-18 00:24] LABS: BASO # 0.1 10*3/uL (0.0-0.1); BASO % 0.4 % (0.0-1.0); EOS # 0.2 10*3/uL (0.0-0.4); EOS % 1.5 % (1.0-4.0); HEMATOCRIT 42.3 % (42.0-52.0); HEMOGLOBIN 13.8 g/dl (14.0-18.0); IG # 0.1 10*3/uL (0.0-0.1); LYMPH # 4.2 10*3/uL (1.3-4.4); MEAN CELL VOLUME 80.1 fl (80.0-94.0); MEAN CORPUSCULAR HGB 26.1 pg (27.0-31.0); MEAN CORPUSCULAR HGB CONC 32.6 g/dl (33.0-37.0); MEAN PLATELET VOLUME 10.1 fl (9.6-12.3); MONO % 7.6 % (3.0-9.0); NEUT % 58.9 % (47.0-73.0); PLATELET COUNT AUTOMATED 337 10*3/uL (130-400); RED BLOOD COUNT 5.28 10*6/uL (4.50-5.90); RED CELL DISTRI WIDTH 15.3 % (0-14.5); WHITE BLOOD COUNT 13.5 10*3/uL (4.8-10.8)
[2017-03-18 00:41] LABS: ALBUMIN 3.1 gm/dl (3.1-4.5); ALKALINE PHOSPHATASE 141 U/L (45-117); BILIRUBIN, TOTAL 0.6 mg/dl (0.2-1.0); BUN 5 mg/dl (7-24); CARBON DIOXIDE 27 mmol/L (21-32); CHLORIDE 103 mmol/L (98-107); EST GLOM FILT AFRICAN AMERICAN > 60 ml/min; GLUCOSE 90 mg/dL (65-99); MAGNESIUM 1.9 mg/dL (1.5-2.1); POTASSIUM 3.2 mmol/L (3.5-5.1); SGOT/AST 41 IU/L (3-35); SGPT/ALT 56 U/L (12-78); SODIUM 138 mmol/L (136-145); TOTAL PROTEIN 7.6 gm/dL (6.4-8.2)
[2017-03-18] MEDS ORDERED: Zofran4 MG PO (01:01)
== END 2017-03-18 01:11 | disposition home or self-care (01) ==
LOC: ED 23:26
PROVIDERS: Student in an Organized Health Care Education/Training Program
DX: R11.2 Nausea with vomiting, unspecified (principal); R10.9 Unspecified abdominal pain; K59.00 Constipation, unspecified; C18.9 Malignant neoplasm of colon, unspecified; E78.5 Hyperlipidemia, unspecified; I11.0 Hypertensive heart disease with heart failure; I50.9 Heart failure, unspecified; E11.9 Type 2 diabetes mellitus without complications; J45.909 Unspecified asthma, uncomplicated; J44.9 Chronic obstructive pulmonary disease, unspecified; Z88.1 Allergy status to other antibiotic agents; Z86.718 Personal history of other venous thrombosis and embolism; Z88.6 Allergy status to analgesic agent; Z88.8 Allergy status to other drugs, medicaments and biological substances; Z79.899 Other long term (current) drug therapy

== ENCOUNTER 2017-04-03 13:38 | Emergency (ER) | payer MEDICARE ==
[~2017-04-03] VITALS: Wt 123.8 kg
[~2017-04-03 13:38] MED LIST changes: +Zofran4 MG PO
[2017-04-03 14:53] LABS: BASO # 0.1 10*3/uL (0.0-0.1); BASO % 0.6 % (0.0-1.0); EOS # 0.2 10*3/uL (0.0-0.4); EOS % 1.9 % (1.0-4.0); HEMATOCRIT 41.3 % (42.0-52.0); HEMOGLOBIN 13.3 g/dl (14.0-18.0); IG # 0.1 10*3/uL (0.0-0.1); LYMPH % 34.6 % (27.0-41.0); MEAN CELL VOLUME 80.5 fl (80.0-94.0); MEAN CORPUSCULAR HGB 25.9 pg (27.0-31.0); MEAN CORPUSCULAR HGB CONC 32.2 g/dl (33.0-37.0); MONO # 1.1 10*3/uL (0.1-1.0); MONO % 9.2 % (3.0-9.0); NEUT # 6.1 10*3/uL (2.3-7.9); NEUT % 52.7 % (47.0-73.0); PLATELET COUNT AUTOMATED 322 10*3/uL (130-400); RED BLOOD COUNT 5.13 10*6/uL (4.50-5.90); RED CELL DISTRI WIDTH 14.7 % (0-14.5); WHITE BLOOD COUNT 11.6 10*3/uL (4.8-10.8)
[2017-04-03 15:08] LABS: ALBUMIN 3.4 gm/dl (3.1-4.5); ALKALINE PHOSPHATASE 118 U/L (45-117); BILIRUBIN, TOTAL 0.3 mg/dl (0.2-1.0); BUN 10 mg/dl (7-24); C-REACTIVE PROTEIN 1.11 MG/DL (0-0.3); CARBON DIOXIDE 27 mmol/L (21-32); CHLORIDE 103 mmol/L (98-107); EST GLOM FILT AFRICAN AMERICAN > 60 ml/min; GLUCOSE 91 mg/dL (65-99); MAGNESIUM 2.1 mg/dL (1.5-2.1); SGOT/AST 15 IU/L (3-35); SGPT/ALT 29 U/L (12-78); SODIUM 137 mmol/L (136-145); TOTAL PROTEIN 7.3 gm/dL (6.4-8.2)
[2017-04-03 17:53] VITALS: BP 115/73
== END 2017-04-03 17:44 | disposition home or self-care (01) ==
LOC: ED 13:38
PROVIDERS: Emergency Medicine
DX: Z48.01 Encounter for change or removal of surgical wound dressing (principal); Z88.1 Allergy status to other antibiotic agents; Z88.2 Allergy status to sulfonamides; Z88.8 Allergy status to other drugs, medicaments and biological substances; Z79.899 Other long term (current) drug therapy

== ENCOUNTER → 2017-05-22 | Outpatient (CLI) | payer MEDICARE, MEDICAID | LOC: WOUNDCARE 01:11 | DX: T81.89XA Other complications of procedures, not elsewhere classified, initial encounter (principal); E11.9 Type 2 diabetes mellitus without complications; Z85.030 Personal history of malignant carcinoid tumor of large intestine; Z93.3 Colostomy status; Y83.8 Other surgical procedures as the cause of abnormal reaction of the patient, or of later complication, without mention of misadventure at the time of the procedure; Y92.89 Other specified places as the place of occurrence of the external cause ==

== ENCOUNTER → 2017-05-29 | Outpatient (CLI) | payer MEDICARE, MEDICAID | END | disposition home or self-care (01) | LOC: WOUNDCARE 02:13 | DX: T81.89XD Other complications of procedures, not elsewhere classified, subsequent encounter (principal); S31.105D Unspecified open wound of abdominal wall, periumbilic region without penetration into peritoneal cavity, subsequent encounter; Z85.030 Personal history of malignant carcinoid tumor of large intestine; Z43.3 Encounter for attention to colostomy; Y83.8 Other surgical procedures as the cause of abnormal reaction of the patient, or of later complication, without mention of misadventure at the time of the procedure ==

== ENCOUNTER → 2017-05-29 | Outpatient (CLI) | payer MEDICARE | END | disposition home or self-care (01) | LOC: LAB 14:11 | DX: C18.9 Malignant neoplasm of colon, unspecified (principal) ==

== ENCOUNTER → 2017-06-05 | Outpatient (CLI) | payer MEDICARE | END | disposition home or self-care (01) | LOC: WOUNDCARE 04:59 | DX: T81.89XD Other complications of procedures, not elsewhere classified, subsequent encounter (principal); Z85.030 Personal history of malignant carcinoid tumor of large intestine; E11.9 Type 2 diabetes mellitus without complications; Z43.3 Encounter for attention to colostomy; Y83.8 Other surgical procedures as the cause of abnormal reaction of the patient, or of later complication, without mention of misadventure at the time of the procedure ==

== ENCOUNTER → 2017-06-12 | Outpatient (CLI) | payer MEDICARE | END | disposition home or self-care (01) | LOC: WOUNDCARE 03:02 | DX: T81.89XD Other complications of procedures, not elsewhere classified, subsequent encounter (principal); Z85.038 Personal history of other malignant neoplasm of large intestine; X58.XXXD Exposure to other specified factors, subsequent encounter ==

== ENCOUNTER → 2017-06-19 | Outpatient (CLI) | payer MEDICARE | END | disposition home or self-care (01) | LOC: WOUNDCARE 01:30 | DX: T81.89XD Other complications of procedures, not elsewhere classified, subsequent encounter (principal); E13.9 Other specified diabetes mellitus without complications; Z85.030 Personal history of malignant carcinoid tumor of large intestine; Z43.3 Encounter for attention to colostomy; Y83.8 Other surgical procedures as the cause of abnormal reaction of the patient, or of later complication, without mention of misadventure at the time of the procedure ==

== ENCOUNTER → 2017-06-26 | Outpatient (CLI) | payer MEDICARE | END | disposition home or self-care (01) | LOC: WOUNDCARE 02:32 → RESCLI 02:32 | DX: T81.89XD Other complications of procedures, not elsewhere classified, subsequent encounter (principal); E11.9 Type 2 diabetes mellitus without complications; Z85.030 Personal history of malignant carcinoid tumor of large intestine; Z43.3 Encounter for attention to colostomy; Y83.8 Other surgical procedures as the cause of abnormal reaction of the patient, or of later complication, without mention of misadventure at the time of the procedure ==

== ENCOUNTER → 2017-07-03 | Outpatient (CLI) | payer MEDICARE | END | disposition home or self-care (01) | LOC: WOUNDCARE 01:44 | DX: T81.89XD Other complications of procedures, not elsewhere classified, subsequent encounter (principal); E11.9 Type 2 diabetes mellitus without complications; Z85.030 Personal history of malignant carcinoid tumor of large intestine; Z43.3 Encounter for attention to colostomy; Y83.8 Other surgical procedures as the cause of abnormal reaction of the patient, or of later complication, without mention of misadventure at the time of the procedure ==

== ENCOUNTER → 2017-07-05 | Outpatient (CLI) | payer MEDICARE | LOC: CT 10:00 | DX: K76.89 Other specified diseases of liver (principal); E13.9 Other specified diabetes mellitus without complications; E43 Unspecified severe protein-calorie malnutrition; Z85.030 Personal history of malignant carcinoid tumor of large intestine; Z98.890 Other specified postprocedural states ==

== ENCOUNTER → 2017-07-17 | Outpatient (CLI) | payer MEDICARE | END | disposition home or self-care (01) | LOC: WOUNDCARE 01:12 | DX: T81.89XD Other complications of procedures, not elsewhere classified, subsequent encounter (principal); E11.9 Type 2 diabetes mellitus without complications; Z85.030 Personal history of malignant carcinoid tumor of large intestine; Y83.8 Other surgical procedures as the cause of abnormal reaction of the patient, or of later complication, without mention of misadventure at the time of the procedure ==

== ENCOUNTER → 2017-07-24 | Day surgery (SDC) | payer MEDICARE ==
[~2017-07-24] VITALS: Ht 187.9 cm; Wt 124.7 kg
[2017-07-24 07:00] VITALS: BP 157/76
[2017-07-24 09:18] VITALS: BP 105/48
[2017-07-24 09:33] VITALS: BP 105/49
[2017-07-24 09:48] VITALS: BP 108/54
== END | disposition home or self-care (01) ==
LOC: SDC 07-20 11:00
DX: Z08 Encounter for follow-up examination after completed treatment for malignant neoplasm (principal); D12.5 Benign neoplasm of sigmoid colon; Z85.030 Personal history of malignant carcinoid tumor of large intestine; Z86.010 Personal history of colon polyps; Z93.3 Colostomy status; E11.9 Type 2 diabetes mellitus without complications; J44.9 Chronic obstructive pulmonary disease, unspecified; I50.9 Heart failure, unspecified; F41.9 Anxiety disorder, unspecified; G43.909 Migraine, unspecified, not intractable, without status migrainosus; Z85.72 Personal history of non-Hodgkin lymphomas; Z86.14 Personal history of Methicillin resistant Staphylococcus aureus infection; Z86.718 Personal history of other venous thrombosis and embolism; Z98.890 Other specified postprocedural states; Z80.9 Family history of malignant neoplasm, unspecified; Z83.3 Family history of diabetes mellitus; Z82.49 Family history of ischemic heart disease and other diseases of the circulatory system; G47.30 Sleep apnea, unspecified; Z88.8 Allergy status to other drugs, medicaments and biological substances

== ENCOUNTER → 2017-08-06 | Outpatient (CLI) | payer MEDICARE | END | disposition home or self-care (01) | LOC: WOUNDCARE 10:12 | DX: T81.89XD Other complications of procedures, not elsewhere classified, subsequent encounter (principal); E11.622 Type 2 diabetes mellitus with other skin ulcer; L98.491 Non-pressure chronic ulcer of skin of other sites limited to breakdown of skin; Z85.030 Personal history of malignant carcinoid tumor of large intestine; Y83.8 Other surgical procedures as the cause of abnormal reaction of the patient, or of later complication, without mention of misadventure at the time of the procedure ==

== ENCOUNTER 2017-08-10 16:58 | Emergency (ER) | payer MEDICARE ==
[~2017-08-10] VITALS: Ht 187.9 cm; Wt 136.1 kg
[2017-08-10 17:25] LABS: BASO # 0.1 10*3/uL (0.0-0.1); BASO % 0.5 % (0.0-1.0); EOS # 0.2 10*3/uL (0.0-0.4); EOS % 1.8 % (1.0-4.0); HEMATOCRIT 44.9 % (42.0-52.0); HEMOGLOBIN 14.9 g/dl (14.0-18.0); LYMPH # 4.2 10*3/uL (1.3-4.4); LYMPH % 31.8 % (27.0-41.0); MEAN CELL VOLUME 80.8 fl (80.0-94.0); MEAN CORPUSCULAR HGB 26.8 pg (27.0-31.0); MEAN CORPUSCULAR HGB CONC 33.2 g/dl (33.0-37.0); MEAN PLATELET VOLUME 10.1 fl (9.6-12.3); MONO # 1.1 10*3/uL (0.1-1.0); MONO % 8.7 % (3.0-9.0); NEUT # 7.4 10*3/uL (2.3-7.9); NEUT % 56.4 % (47.0-73.0); PLATELET COUNT AUTOMATED 314 10*3/uL (130-400); RED BLOOD COUNT 5.56 10*6/uL (4.50-5.90); RED CELL DISTRI WIDTH 14.2 % (0-14.5); WHITE BLOOD COUNT 13.1 10*3/uL (4.8-10.8)
[2017-08-10 17:35] LABS: ACT PARTIAL THROMBO TIME 29.4 SECONDS (20.8-31.5)
[2017-08-10 17:39] LABS: ALBUMIN 3.6 gm/dl (3.1-4.5); ALKALINE PHOSPHATASE 164 U/L (45-117); BUN 10 mg/dl (7-24); CHLORIDE 98 mmol/L (98-107); CREATININE 0.91 mg/dL (0.70-1.30); LIPASE 135 U/L (73-393); POTASSIUM 3.8 mmol/L (3.5-5.1); SGOT/AST 16 IU/L (3-35); SGPT/ALT 27 U/L (12-78); SODIUM 135 mmol/L (136-145); TOTAL PROTEIN 8.4 gm/dL (6.4-8.2)
[2017-08-10 21:46] VITALS: BP 119/73
== END 2017-08-10 22:32 | disposition home or self-care (01) ==
LOC: ED 16:58
PROVIDERS: Emergency Medicine
DX: R10.32 Left lower quadrant pain (principal); G89.29 Other chronic pain; J44.9 Chronic obstructive pulmonary disease, unspecified; E11.9 Type 2 diabetes mellitus without complications; I11.0 Hypertensive heart disease with heart failure; I50.9 Heart failure, unspecified; E78.5 Hyperlipidemia, unspecified; G43.909 Migraine, unspecified, not intractable, without status migrainosus; Z98.890 Other specified postprocedural states; Z86.718 Personal history of other venous thrombosis and embolism; Z79.899 Other long term (current) drug therapy; Z88.5 Allergy status to narcotic agent; Z88.1 Allergy status to other antibiotic agents; Z88.8 Allergy status to other drugs, medicaments and biological substances; Z85.038 Personal history of other malignant neoplasm of large intestine; Z93.3 Colostomy status

== ENCOUNTER → 2017-08-14 | Outpatient (CLI) | payer MEDICARE | END | disposition home or self-care (01) | LOC: WOUNDCARE 11:58 | DX: T81.89XD Other complications of procedures, not elsewhere classified, subsequent encounter (principal); E11.622 Type 2 diabetes mellitus with other skin ulcer; L98.491 Non-pressure chronic ulcer of skin of other sites limited to breakdown of skin; Z85.030 Personal history of malignant carcinoid tumor of large intestine; Y83.8 Other surgical procedures as the cause of abnormal reaction of the patient, or of later complication, without mention of misadventure at the time of the procedure ==

== ENCOUNTER → 2017-08-23 | Outpatient (CLI) | payer MEDICARE | END | disposition home or self-care (01) | LOC: WOUNDCARE 01:16 | DX: T81.89XD Other complications of procedures, not elsewhere classified, subsequent encounter (principal); E11.9 Type 2 diabetes mellitus without complications; Z85.030 Personal history of malignant carcinoid tumor of large intestine; Y83.8 Other surgical procedures as the cause of abnormal reaction of the patient, or of later complication, without mention of misadventure at the time of the procedure ==

== ENCOUNTER → 2017-09-06 | Outpatient (CLI) | payer MEDICARE | END | disposition home or self-care (01) | LOC: WOUNDCARE 01:23 | DX: T81.89XD Other complications of procedures, not elsewhere classified, subsequent encounter (principal); E11.9 Type 2 diabetes mellitus without complications; Z85.030 Personal history of malignant carcinoid tumor of large intestine; Z43.3 Encounter for attention to colostomy; Y83.8 Other surgical procedures as the cause of abnormal reaction of the patient, or of later complication, without mention of misadventure at the time of the procedure ==

== ENCOUNTER 2017-09-12 22:00 | Inpatient (IN) | payer MEDICARE ==
[~2017-09-12] VITALS: Ht 187.9 cm; Wt 126.8 kg
--- NOTE | ~2017-09-12 | PR ---
[place], [place] PROGRESS NOTE [id number] UNIT #: [id number] ROOM: 416 DOCTOR: PHYLLIS VILCHIS MD,MATIAS BIRTHDATE: [birth year] DOS: 09/16/2017 SUBJECTIVE: The patient was noted comfortable at this time without any acute distress. At this time, he has been noted comfortable. The shortness of breath and other respiratory symptoms has been resolving gradually. He has been resting on the bed using oxygen supplementation nasal cannula. OBJECTIVE: VITAL SIGNS: Normal temperature, respiratory rate 18, heart rate 72, blood pressure 120/76. The pulse oxygen saturation noted on nasal cannula 2 liters 95% saturation. HEENT: Chronic obesity. NECK: Supple. CARDIOVASCULAR: S1, S2 audible. LUNGS: Noted without any wheezing or crackles at this time. Lungs were noted clear to auscultation bilaterally. ABDOMEN: Soft, nontender. EXTREMITIES: The patient was noted without any acute edema. IMPRESSION: 1. The patient who had been currently noted at this time stable respiratory status with progressive resolution of acute exacerbation of chronic obstructive pulmonary disease and bronchitis. 2. History of obstructive sleep apnea disorder. PLAN OF TREATMENT: The patient could be discharged home today if desired on tapering dose of prednisone and to continue other home medications. Usual care. All other supportive therapy, plan of management and treatments. MATIAS FERGUSON MD CM:PNTRANS [id number] MATIAS VILCHIS MD 09/16/17 1714 interface
--- NOTE | ~2017-09-12 | PR ---
[place], [place] PROGRESS NOTE NAME: [facility] [id number] UNIT #: [id number] ROOM: 416 DOCTOR: SPARKLE CONTRERAS MD BIRTHDATE: [birth year] DOS: 09/14/2017 SUBJECTIVE: Patient is starting to breathe better. OBJECTIVE: VITAL SIGNS: Blood pressure 121/67, heart rate 89 beats, breathing 16 times per minute, temperature 98 degrees Fahrenheit. GENERAL APPEARANCE: Morbid obesity. The patient is alert and oriented x 3, in no visible distress. HEENT AND NECK: Exam within normal limits. CARDIOVASCULAR SYSTEM: Heart rate is regular in rate and rhythm. S1 and S2 normally audible. LUNGS: Decreased breath sounds. Expiratory wheezing in his lungs which is better than yesterday. ABDOMEN: Soft, nontender. No obvious organomegaly. Bowel sounds are present. EXTREMITIES: Without significant cyanosis or edema. IMPRESSION: 1. Acute exacerbation of chronic obstructive pulmonary disease and acute over chronic respiratory failure, improving with treatment with corticosteroids, antibiotics and oxygen. 2. Type 2 diabetes mellitus. Blood sugars being monitored and treated. 3. Corticosteroid-induced hyperglycemia, treated with insulin. 4. Obesity and adult failure to thrive. Patient working with physical therapy. 5. Morbid obesity. Patient working with Dietary. 6. Mixed hyperlipidemia, being followed and treated. 7. Factor V Leiden mutation. Patient was treated with anticoagulation. 8. Chronic primary insomnia, treated with trazodone. SPARKLE CONTRERAS MD CM:PNTRANS [id number] [phone] SPARKLE CONTRERAS MD 09/14/17 2324 interface
--- NOTE | ~2017-09-12 | PR ---
[place], [place] PROGRESS NOTE NAME: [facility] [id number] UNIT #: [id number] ROOM: 416 DOCTOR: PHYLLIS VILCHIS MD,MATIAS BIRTHDATE: [birth year] DOS: 09/13/2017 The patient was independently seen and examined, [id number] encounter for this addendum. History was confirmed. Physical exam was performed. All the labs were reviewed. Assessment and management was completed. Note done by the medical office specialist was approved. SUBJECTIVE: The patient reported reduction in the respiratory symptom in the last 24 hours with improvement in the shortness of breath. He does have mild cough. There were no sputum expectoration. Denies symptoms of chest pain. He does have a CPAP at home, which he did not bring it to the hospital. OBJECTIVE: VITAL SIGNS: Reviewed noted as normal. Pulse oxygen saturation recorded as 96% on 2 liter nasal cannula. HEENT: Chronic obesity. CARDIOVASCULAR: S1, S2 is audible. LUNGS: The patient was noted with moderate decreased breath sounds, scattered expiratory wheezing without any crackles. ABDOMEN: Soft and obese. EXTREMITIES: With chronic obesity without any edema. LABORATORY DATA: Rapid influenza A and B, nasal washing antigen that was done yesterday were noted as negative. IMPRESSION: 1. Acute exacerbation of bronchial asthma with acute bronchitis, may be viral in origin, showing reduction and improvement in respiratory symptoms. 2. Type 2 diabetes mellitus with hyperglycemia, somewhat worsened because of the corticosteroids. Steroid dose will be decreased to 40 mg Solu-Medrol b.i.d. Monitor respiratory viral panel as well. He was advised about bringing his CPAP/BiPAP unit from home to use it at night during this hospitalization. MATIAS FERGUSON MD CM:PNTRANS [phone] MATIAS VILCHIS MD 09/14/172241 interface
--- NOTE | ~2017-09-12 | CON ---
[place], [place] REPORT OF CONSULTATION NAME: CLARE KUMARI [facility] #: [id number] UNIT #: [id number] ROOM: 416 DOCTOR: MATIAS DODSON MD BIRTHDATE: [birth year] DOS: 09/13/2017 The consultation was requested by Dr. Gross for assessment due to recurrence of the acute respiratory symptom. HISTORY OF PRESENT ILLNESS: This is a 52-year-old male who has been known to me from the past. The patient has been admitted under care of Dr. Gross as he has been reported with increase respiratory symptom, which has been noted on the morning prior to the assessment. The patient's symptoms initially started with acute coughing. The patient noted gradual worsening for the past 2 days. He denies symptoms of chest pain. The patient denies symptoms of hemoptysis. The patient stated the main symptoms he was assessed in the hospital emergency was shortness of breath. He denies symptoms of chest trauma. REVIEW OF SYSTEMS: CONSTITUTIONAL SYMPTOM: Fatigue and tiredness, reported any symptom of fever or chills. EYES: Denies any burning, redness, or tenderness. ENT: Denies any sore throat, hoarseness, otalgia, postnasal drainage. CARDIOVASCULAR SYSTEM: Denies angina pain, edema or pain of the lower extremity. GASTROINTESTINAL: Dysphagia, nausea, vomiting, diarrhea, abdominal pain, hematemesis, melena, or hematochezia. The patient denies abnormal weight loss or dysphagia. GENITOURINARY SYMPTOM: No dysuria, suprapubic pain, hematuria. MUSCULOSKELETAL SYMPTOMS: No acute joint pain, redness, or tenderness. SKIN: Without lesions or rashes. MUSCULOSKELETAL SYMPTOMS: The patient denies any acute deformities, chronic pain. CENTRAL NERVOUS SYSTEM: Dizziness, headache, diplopia, syncopal episodes. Remaining systems were reviewed. They were noted all negative. PAST MEDICAL HISTORY: 1. Uncomplicated severe persistent bronchial asthma. 2. Factor V Leiden deficiency. 3. Type 2 diabetes mellitus. 4. Obstructive sleep apnea disorder and chronic hypoxic respiratory failure. 5. Migraine headache. 6. Chronic obesity, non-Hodgkin. 7. History of non-Hodgkin lymphoma in 2004, described in remission. 8. Left vocal cord paralysis. The patient with chronic dysphonia. 9. History of DVT. PAST SURGICAL HISTORY: 1. Tendon repair of the left foot. 2. Therapeutic bronchoscopy. SOCIAL HISTORY: The patient is not , lives at home. Denies any history of alcohol, illicit drug use. The patient denies a history of tobacco use as [place], [place] REPORT OF CONSULTATION NAME: CLARE KUMARI UNIT #: [id number] ROOM: [facility] DOCTOR: MERRITT DODSON MDM BIRTHDATE: [birth year] well. Pulmonary related occupation exposure history. FAMILY HISTORY: The patient's father with history of COPD and emphysema. Mother at 39 years old with complication of cancer of the cervix. HOME MEDICATIONS: The patient was reported listed during his Emergency Room visit was the use of MiraLax, Eliquis, Zofran, glipizide, Januvia, Lipitor, Latuda, Brintellix, Daliresp, omeprazole, Celexa, propranolol, Bumex, meclizine, Prinivil, DuoNeb and Klonopin. DRUG ALLERGIES: THE PATIENT NOTED ALLERGIES: 1. NUBAIN. 2. CODEINE. 3. LEVAQUIN. 4. ____. 5. METFORMIN. 6. DARVOCET-N. PHYSICAL EXAMINATION: GENERAL: This is a 52-year-old white male who has been currently sitting on his bed without any acute distress, for assessment height of 6 feet 2 inches, weight of 287, BMI 36.8. VITAL SIGNS: The patient showed normal temperature, respiratory rate of 13-23, heart rate 64-89, blood pressure 122/68-130/73, pulse ox saturation on 2 L nasal cannula 97% saturation. HEAD, EARS, EYES, NOSE AND THROAT: Moderate severe obesity. Head was atraumatic. Eye nonicterus. NECK: Supple. Oral mucosa was moist. CARDIOVASCULAR: S1, S2 audible. LUNGS: Noted general reduction in breath sounds bilaterally with mild expiratory wheezing without any crackles. ABDOMEN: Noted moderate obesity. Bowel sounds present. EXTREMITIES: The patient noted without any edema, clubbing, cyanosis. CENTRAL NERVOUS SYSTEM: The patient noted without any gross focal neurologic deficit. Cranial nerves 2-12 intact. SKIN: No lesions or rashes. MUSCULOSKELETAL SYMPTOM: Without any acute on chronic deformities. LABORATORY AND DIAGNOSTIC DATA: CBC yesterday on admission in the Emergency WBC count 12.8, hemoglobin 13.2, hematocrit 40.8, platelet count was normal. The CMP that was done yesterday, glucose 207, BUN normal, creatinine normal, remaining LFTs normal except alkaline phosphatase minimally elevated at 146. The chest x-ray that was done, was noted peribronchial thickening as well suggestive of bronchitis. IMPRESSION: 1. The patient will be currently admitted to the hospital, noted with acute exacerbation of bronchial asthma. The patient with possibility of superimposed bronchitis, could be viral or bacterial in origin. 2. History of chronic moderate obesity. [place], [place] REPORT OF CONSULTATION NAME: CLARE KUMARI UNIT #: [id number] ROOM: 416 DOCTOR: PHYLLIS VILCHIS MD,MATIAS BIRTHDATE: [birth year] 3. History of chronic anticoagulation with deep venous thrombosis, currently treated with Eliquis. 4. ____problems has been noted psych related on multiple medications for his management. 5. History of chronic hypoxic respiratory failure was also reported. 6. Type 2 diabetes mellitus, partially uncontrolled with use of corticosteroids. PLAN OF MANAGEMENT: Continue anticoagulation bronchodilator current dose of Solu-Medrol 40 mg every 8 hours and DuoNeb every 4 hours. Continue antibiotic, Zithromax and Rocephin. Will be ordered as influenza A and B, nasal washing, antigen as well as the respiratory viral panel. All other supportive therapy, plan of management as previously otherwise will be continued. Titrate oxygen supplementation to maintain a saturation of 92% or greater. Other supportive therapy, plan of management as well. Additional treatment changes will be recommended based on progression of the illness. Steroids will be gradually reduced based on the improvement in the respiratory status with reduction in the wheezing and other symptoms. MATIAS FERGUSON MD CM:CONSTR:REPORT OF CONSULTATION 1256 09/13/172034 interface
--- NOTE | ~2017-09-12 | EKG ---
[place], [place] ELECTROCARDIOGRAM REPORT NAME: CLARE KUMARI UNIT #: [id number] ROOM: 416 DOCTOR: PHYLLIS VILCHIS MD,MATIAS BIRTHDATE: [birth year] DOS: 09/12/2017 The electrocardiogram was done on 09/12/2017 at 11:03 p.m. Normal sinus rhythm noted. Heart rate 83 beats per minute with nonspecific ST-T changes. Possibility of inferior old myocardial infarction can be excluded. MATIAS FERGUSON MD CM:EKGRPT:ELECTROCARDIOGRAM REPORT [id number] MATIAS VILCHIS MD
--- NOTE | ~2017-09-12 | PR ---
[place], [place] PROGRESS NOTE [facility] [id number] UNIT #: [id number] ROOM: 416 DOCTOR: PHYLLIS VILCHIS MD,MATIAS BIRTHDATE: [birth year] DOS: 09/15/2017 SUBJECTIVE: The patient was seen and examined on 09/15/2017. He has been showing gradual reduction and improvement in the respiratory symptom. Denies symptoms of chest pain or hemoptysis. The shortness of breath has been improving. There were no symptoms of wheezing or cough described by the patient at today's visit. OBJECTIVE: VITAL SIGNS: The patient showed normal temperature, respiratory rate 19, heart rate 65, blood pressure 95/59. The pulse oxygen saturation was recorded as 94% saturation, 97% on 2 liter nasal cannula. HEENT: Showed no acute change. NECK: Supple. CARDIOVASCULAR: S1, S2 is audible. LUNGS: The patient was noted. No wheezing, no crackles. ABDOMEN: Soft, nontender and obese. EXTREMITIES: Without any acute edema. IMPRESSION: 1. The patient was being currently noted with gradual reduction and improvement in the acute exacerbation of chronic obstructive pulmonary disease management. 2. Obstructive sleep apnea disorder. 3. Chronic obesity. 4. Severe psychiatric problem. PLAN OF TREATMENT: The patient on multiple medications for further management. Dose of Solu-Medrol will be decreased to 40 mg daily. Ambulation was encouraged. Consider possible discharge home on either today or tomorrow. MATIAS FERGUSON MD CM:PNTRANS [id number] MATIAS VILCHIS MD 09/15/17 2340 interface
--- NOTE | ~2017-09-12 | PR ---
[place], [place] PROGRESS NOTE NAME: CLARE KUMARI UNIT #: [id number] ROOM: 416 DOCTOR: CLYDE DO,APURVA BIRTHDATE: [birth year] DOS: 09/14/2017 SUBJECTIVE: The patient was seen and examined at bedside. The patient was sitting upright, in no acute distress. The patient reports that he continues to feel a little better. However, the patient did not use his BiPAP last night and the patient left his equipment at home. The patient was [id number] to use his BiPAP this evening and the patient agreed. No new complaints at this time. The patient reports improved shortness of breath, cough and wheeze. OBJECTIVE: VITAL SIGNS: Temperature 97.9, pulse is 89, respirations 18, blood pressure 135/69, pulse ox 96% on 2 liters nasal cannula. LABORATORY DATA: Flu swab negative for flu. GENERAL APPEARANCE: The patient is alert and oriented x 3, in no acute distress. HEENT: Eyes are clear. No injection. Nares are patent. Mucous membranes are moist. NECK: Supple, nontender. CARDIOVASCULAR: Regular rate and rhythm. No murmurs, gallops or rubs. RESPIRATORY: No wheezes, rales or rhonchi. Diminished breath sounds in all lung robertson. ABDOMEN: Soft, nontender with positive bowel sounds. EXTREMITIES: Show mild edema, 1+ in bilateral lower extremities. No erythema. No clubbing. No cyanosis. NEUROLOGIC: Negative for focal deficits. IMPRESSION: 1. Acute on chronic obstructive pulmonary disease with exacerbation. 2. Bronchitis. 3. Obesity. 4. Chronic respiratory failure. 5. Type 2 diabetes. TREATMENT PLAN: Continue Solu-Medrol 40 three times a day, azithromycin, Rocephin, DuoNeb. The patient continues to improve, will likely need one more night in the hospital and will possibly be ready for discharge if the patient continues to improve at the current rate. We will reassess the patient in the morning for medical stabilization for discharge and discharge planning. APURVA DO CLYDE [place], [place] PROGRESS NOTE NAME: CLARE KUMARI UNIT #: [id number] ROOM: [facility] DOCTOR: APURVA TANG DO BIRTHDATE: [birth year] MATIAS FERGUSON MD CM:SERA [id number] APURVA TANG DO 09/17/17 0428 interface
--- NOTE | ~2017-09-12 | PR ---
[place], [place] PROGRESS NOTE NAME: CLARE KUMARI [facility] #: [id number] UNIT #: [id number] ROOM: 416 DOCTOR: SPARKLE CONTRERAS MD BIRTHDATE: [birth year] DOS: 09/15/2017 SUBJECTIVE: The patient is starting to breathe better. His wheezing is improving. OBJECTIVE: VITAL SIGNS: Blood pressure 133/74, heart rate 84 beats per minute, breathing 18 times a minute, temperature of 98 degrees Fahrenheit. GENERAL APPEARANCE: The patient is alert and oriented x 3, in no visible distress. Morbid obesity, generalized weakness. HEENT AND NECK: Exam within normal limits. CARDIOVASCULAR SYSTEM: Heart rate is regular in rate and rhythm. S1 and S2 normally audible. LUNGS: Expiratory wheezing on lung auscultation, which is improving. ABDOMEN: Soft, nontender. No obvious organomegaly. Bowel sounds are present. EXTREMITIES: Without significant cyanosis or edema. IMPRESSION AND PLAN: 1. Acute exacerbation of severe underlying chronic obstructive pulmonary disease. Continue present treatment. 2. Type 2 diabetes mellitus with elevated blood sugars, secondary to corticosteroids. 3. Corticosteroid-induced hyperglycemia. 4. Morbid obesity. The patient working with physical therapy. 5. Mixed hyperlipidemia. Presently, the patient is on Lipitor. 6. Chronic primary insomnia, treated and controlled with trazodone. 7. Factor V Leiden mutation, for which the patient requires anticoagulation. SPARKLE CONTRERAS MD CM:PNTRANS [id number] SPARKLE CONTRERAS MD 09/16/17 0812 interface
--- NOTE | ~2017-09-12 | WRIGHTHP ---
[place], [place] PATIENT HISTORY AND PHYSICAL EXAM NAME: CLARE KUMARI [facility] #: [id number] UNIT #: [id number] ROOM: 416 DOCTOR: SPARKLE CONTRERAS MD BIRTHDATE: [birth year] DOS: 09/12/2017 HISTORY OF PRESENT ILLNESS: The patient is a 52-year-old gentleman with a past medical history of: 1. Morbid obesity. 2. COPD. 3. Type 2 diabetes mellitus. 4. Factor V Leiden mutation. 5. Bipolar disorder. 6. Major depression, recurrent, moderate. 7. Chronic pain syndrome. 8. Chronic primary insomnia. 9. Benign essential hypertension. 10. Mixed hyperlipidemia. 11. Chronic stasis dermatitis involving skin of both legs. 12. Colostomy and surgery for colon cancer. The patient presented to the Emergency Department at [facility] with increasing shortness of breath and wheezing and feeling weak. The patient was found to have acute exacerbation of COPD with increased shortness of breath and wheezing and generalized weakness. The patient was recommended for admission and further management. After admission, the patient says his breathing is starting to improve with present treatment. REVIEW OF SYSTEMS: LUNGS: The patient with increasing shortness of breath and wheezing. GASTROINTESTINAL: No nausea, vomiting, diarrhea or constipation. CARDIOVASCULAR: No chest pains or palpitations. FAMILY HISTORY: Noncontributory. SOCIAL HISTORY: The patient has a girlfriend, he lives with. Denies smoking cigarettes, alcohol and drug abuse. MEDICATIONS: Insulin, trazodone, Bumex, Plavix, apixaban, prednisone, glipizide, DuoNeb, tramadol, ceftriaxone, clonazepam, azithromycin. PHYSICAL EXAMINATION: GENERAL: Alert, oriented x 3, in no visible distress, generalized weakness and morbid obesity. VITAL SIGNS: Blood pressure 138/73, heart rate 106 beats per minute, breathing 20 times per minute, temperature 98.8 degrees Fahrenheit. LABORATORY DATA: Chest x-ray without any acute abnormality except for suspected bronchiolitis. White cell count of 13,000, hemoglobin 13.2, normal platelets. Normal serum electrolytes. Sugar elevated to 207. IMPRESSION: 1. The patient with acute exacerbation of significant chronic obstructive pulmonary disease, being treated with bronchodilators and corticosteroids along [place], [place] PATIENT HISTORY AND PHYSICAL EXAM NAME: CLARE KUMARI UNIT #: [id number] ROOM: 416 DOCTOR: DIANE KUMAR,SPARKLE Priest BIRTHDATE: [birth year] with antibiotics. His condition has started improving. 2. Type 2 diabetes mellitus. Blood sugars to be monitored and treated. 3. Corticosteroid-induced hyperglycemia, being covered with insulin sliding scale. 4. Obesity and adult failure to thrive. I will start him on physical therapy. 5. Factor V Leiden mutation and coagulopathy, treated with anticoagulation, which has been continued. 6. Benign essential hypertension with controlled blood pressures. I will continue treatment. 7. Mixed hyperlipidemia, treated and followed. 8. Morbid obesity. The patient to work with dietary. 9. Chronically draining abdominal wound where he had previous surgery before, still draining, is being followed by surgeon, Dr. Torres. 10. History of colostomy. Dr. Torres is planning to take him for reversal of colostomy after his breathing improves. SPARKLE CONTRERAS MD CM:HISPHYS:PATIENT HISTORY AND PHYSICAL EXAMINATION [id number] SPARKLE CONTRERAS MD 09/13/171911 interface
--- NOTE | ~2017-09-12 | DS ---
[place], [place] DISCHARGE SUMMARY NAME: CLARE KUMARI [facility] #: [id number] UNIT #: [id number] ROOM: 416 DOCTOR: SPARKLE CONTRERAS MD BIRTHDATE: [birth year] DOS: 09/16/2017 DISCHARGE DIAGNOSES: 1. Acute exacerbation of chronic obstructive pulmonary disease, improved with treatment. 2. Type 2 diabetes mellitus. 3. Corticosteroid-induced hyperglycemia. 4. Morbid obesity. 5. Generalized disability. The patient worked with physical therapy. 6. Mixed hyperlipidemia. 7. Chronic primary insomnia, treated and controlled with trazodone. 8. Factor V Leiden mutation. 9. Bipolar disorder. 10. Major depression, recurrent, moderate. 11. Chronic pain syndrome. 12. Chronic primary insomnia. 13. Benign essential hypertension. 14. Chronic stasis dermatitis involving the skin of both legs. 15. Colostomy after surgery for colon cancer. HOSPITAL COURSE: The patient was admitted to [facility] with increased shortness of breath and acute exacerbation of COPD and also feeling very weak. The patient was admitted and treated with corticosteroids, oxygen, nebulizer treatments and his breathing has resolved and he is not short of breath and feeling much better. The patient feels good enough to go home and appears to have achieved maximum benefit from this admission and will be discharged to home to be seen in the office in a couple of days. 1. Type 2 diabetes mellitus with corticosteroid-induced hyperglycemia, treated and controlled with insulin. 2. Morbid obesity. The patient worked with dietary. 3. Benign essential hypertension. Blood pressures are monitored and treated and controlled. 4. Mixed hyperlipidemia, diet controlled. 5. Chronically draining abdominal wound from previous surgery, followed by Dr. Torres, the surgeon as an outpatient. 6. Colostomy after previous colon cancer surgery, is waiting for reversal by Dr. Torres. LABORATORY DATA: Normal BUN and creatinine, serum electrolytes. White cell count 12,800, hemoglobin 13.2, normal platelets. DISCHARGE MANAGEMENT: Medrol Dosepak as directed, Levemir insulin 20 units subQ at bedtime, Daliresp 500 mcg daily, propranolol 80 mg daily, lisinopril 5 mg a day, citalopram 40 mg a day, Brintellix 10 mg daily, Latuda 40 mg daily, Lipitor 10 mg daily, trazodone 150 mg at bedtime, omeprazole 20 mg b.i.d., meclizine 25 mg 3 times a day, DuoNeb q.i.d., Pulmicort 0.5 mg b.i.d., Tradjenta 5 mg daily, MiraLax 17 grams daily, Bumex 2 mg daily, apixaban 5 mg b.i.d., glipizide 10 mg b.i.d., tramadol 50 mg t.i.d. p.r.n. for pain, azithromycin 500 mg daily for 5 more days, clonazepam 1 mg b.i.d. [place], [place] DISCHARGE SUMMARY NAME: CLARE KUMARI UNIT #: [id number] ROOM: [facility] DOCTOR: SPARKLE CONTRERAS MD BIRTHDATE: [birth year] SPARKLE CONTRERAS MD CM:DISCHPAU 1611 SPARKLE CONTRERAS MD 09/17/17 0007 interface
[2017-09-12 22:22] VITALS: BP 122/65
[2017-09-12 23:00] VITALS: BP 123/68
[2017-09-12 23:04] LABS: BASO # 0.1 10*3/uL (0.0-0.1); BASO % 0.5 % (0.0-1.0); EOS # 0.3 10*3/uL (0.0-0.4); EOS % 2.2 % (1.0-4.0); HEMATOCRIT 40.8 % (42.0-52.0); HEMOGLOBIN 13.2 g/dl (14.0-18.0); LYMPH # 4.4 10*3/uL (1.3-4.4); LYMPH % 34.1 % (27.0-41.0); MEAN CELL VOLUME 82.8 fl (80.0-94.0); MEAN CORPUSCULAR HGB 26.8 pg (27.0-31.0); MEAN CORPUSCULAR HGB CONC 32.4 g/dl (33.0-37.0); MONO % 7.8 % (3.0-9.0); PLATELET COUNT AUTOMATED 287 10*3/uL (130-400); RED BLOOD COUNT 4.93 10*6/uL (4.50-5.90); RED CELL DISTRI WIDTH 13.9 % (0-14.5); WHITE BLOOD COUNT 12.8 10*3/uL (4.8-10.8)
[2017-09-12 23:21] LABS: ALBUMIN 3.1 gm/dl (3.1-4.5); ALKALINE PHOSPHATASE 146 U/L (45-117); BUN 12 mg/dl (7-24); CHLORIDE 103 mmol/L (98-107); CREATININE 0.97 mg/dL (0.70-1.30); POTASSIUM 3.8 mmol/L (3.5-5.1); SGOT/AST 17 IU/L (3-35); SGPT/ALT 22 U/L (12-78); SODIUM 138 mmol/L (136-145); TOTAL PROTEIN 7.1 gm/dL (6.4-8.2)
[2017-09-12 23:28] LABS: TROPONIN I < 0.015 ng/ml (<0.045)
[2017-09-12 23:30] VITALS: BP 124/71
[2017-09-13 00:01] VITALS: BP 117/75
[2017-09-13 00:50] VITALS: BP 131/72
[2017-09-13 08:00] VITALS: BP 130/73
[2017-09-13 12:00] VITALS: BP 138/73
[2017-09-13 16:00] VITALS: BP 108/58
[2017-09-13 20:00] VITALS: BP 131/70
[2017-09-14] VITALS: BP 120/63
[2017-09-14 08:00] VITALS: BP 135/69
[2017-09-14 12:00] VITALS: BP 133/82
[2017-09-14 16:00] VITALS: BP 121/67
[2017-09-14 20:00] VITALS: BP 100/61
[2017-09-15] VITALS: BP 115/63
[2017-09-15 08:00] VITALS: BP 98/59
[2017-09-15 12:00] VITALS: BP 111/66
[2017-09-15 16:00] VITALS: BP 133/74
[2017-09-15 20:00] VITALS: BP 111/69
[2017-09-16] VITALS: BP 112/65
[2017-09-16 07:45] VITALS: BP 109/66
[2017-09-16 12:00] VITALS: BP 120/76
[2017-09-16] MEDS ORDERED: ZITHROMAX500 MG PO (15:56)
[2017-09-16] MEDS ORDERED: MEDROL DOSEPAK4 MG PO (15:56)
[2017-09-16 16:00] VITALS: BP 104/53
[2017-09-18 01:06] LABS: ADENOVIRUS Negative (Negative); INFLUENZA A Negative (Negative); INFLUENZA B Negative (Negative); METAPNEUMOVIRUS Negative (Negative); PARAINFLUENZA 1 Negative (Negative); PARAINFLUENZA 2 Negative (Negative); PARAINFLUENZA 3 Negative (Negative); RHINOVIRUS Negative (Negative); RSV A Negative (Negative); RSV B Negative (Negative)
== END 2017-09-16 17:51 | disposition home or self-care (01) | DRG 189 ==
LOC: ED 22:00 → EDHOLD 23:46 → 4E 23:46
PROVIDERS: Internal Medicine Critical Care Medicine; Nurse Practitioner Family
DX: J96.21 Acute and chronic respiratory failure with hypoxia (principal); D68.51 Activated protein C resistance; D68.9 Coagulation defect, unspecified; E66.01 Morbid (severe) obesity due to excess calories; E11.65 Type 2 diabetes mellitus with hyperglycemia; J45.901 Unspecified asthma with (acute) exacerbation; J44.1 Chronic obstructive pulmonary disease with (acute) exacerbation; F33.1 Major depressive disorder, recurrent, moderate; J44.0 Chronic obstructive pulmonary disease with (acute) lower respiratory infection; T81.4XXA Infection following a procedure, initial encounter; R62.7 Adult failure to thrive; G47.33 Obstructive sleep apnea (adult) (pediatric); F99 Mental disorder, not otherwise specified; J20.9 Acute bronchitis, unspecified; G43.909 Migraine, unspecified, not intractable, without status migrainosus; G43.009 Migraine without aura, not intractable, without status migrainosus; R49.0 Dysphonia; F51.01 Primary insomnia; F41.9 Anxiety disorder, unspecified; E78.5 Hyperlipidemia, unspecified; F51.04 Psychophysiologic insomnia; I87.2 Venous insufficiency (chronic) (peripheral); G89.4 Chronic pain syndrome; E78.2 Mixed hyperlipidemia; Y83.6 Removal of other organ (partial) (total) as the cause of abnormal reaction of the patient, or of later complication, without mention of misadventure at the time of the procedure; T38.0X5A Adverse effect of glucocorticoids and synthetic analogues, initial encounter; Y92.89 Other specified places as the place of occurrence of the external cause; Z68.35 Body mass index [BMI] 35.0-35.9, adult; Z85.038 Personal history of other malignant neoplasm of large intestine; Z93.3 Colostomy status; Z88.6 Allergy status to analgesic agent; Z88.5 Allergy status to narcotic agent; Z88.8 Allergy status to other drugs, medicaments and biological substances; Z90.49 Acquired absence of other specified parts of digestive tract; Z82.5 Family history of asthma and other chronic lower respiratory diseases; Z80.8 Family history of malignant neoplasm of other organs or systems; Z82.49 Family history of ischemic heart disease and other diseases of the circulatory system; Z83.3 Family history of diabetes mellitus; Z86.718 Personal history of other venous thrombosis and embolism; Z86.010 Personal history of colon polyps; Z79.84 Long term (current) use of oral hypoglycemic drugs; Z79.899 Other long term (current) drug therapy

== ENCOUNTER → 2017-09-20 | Outpatient (CLI) | payer MEDICARE ==
[~2017-09-20] MED LIST changes: +ZITHROMAX500 MG PO
== END | disposition home or self-care (01) ==
LOC: WOUNDCARE 00:41
DX: S31.105S Unspecified open wound of abdominal wall, periumbilic region without penetration into peritoneal cavity, sequela (principal); E11.9 Type 2 diabetes mellitus without complications; Z43.3 Encounter for attention to colostomy; Z85.030 Personal history of malignant carcinoid tumor of large intestine; Z85.72 Personal history of non-Hodgkin lymphomas; X58.XXXS Exposure to other specified factors, sequela

== ENCOUNTER 2017-09-28 20:15 | Emergency (ER) | payer MEDICARE ==
[~2017-09-28] VITALS: Ht 187.9 cm; Wt 129.3 kg
[2017-09-28 20:25] VITALS: BP 127/57
[2017-09-28 20:59] LABS: HEMATOCRIT 42.6 % (42.0-52.0); HEMOGLOBIN 14.1 g/dl (14.0-18.0); MEAN CELL VOLUME 81.3 fl (80.0-94.0); MEAN CORPUSCULAR HGB 26.9 pg (27.0-31.0); MEAN CORPUSCULAR HGB CONC 33.1 g/dl (33.0-37.0); MEAN PLATELET VOLUME 9.5 fl (9.6-12.3); PLATELET COUNT AUTOMATED 248 10*3/uL (130-400); RED BLOOD COUNT 5.24 10*6/uL (4.50-5.90); RED CELL DISTRI WIDTH 13.9 % (0-14.5); WHITE BLOOD COUNT 14.8 10*3/uL (4.8-10.8)
[2017-09-28 21:13] LABS: ALBUMIN 3.1 gm/dl (3.1-4.5); ALKALINE PHOSPHATASE 117 U/L (45-117); BUN 11 mg/dl (7-24); CHLORIDE 103 mmol/L (98-107); CREATININE 1.03 mg/dL (0.70-1.30); LIPASE 282 U/L (73-393); POTASSIUM 3.7 mmol/L (3.5-5.1); SGOT/AST 11 IU/L (3-35); SGPT/ALT 27 U/L (12-78); SODIUM 139 mmol/L (136-145); TOTAL PROTEIN 7.4 gm/dL (6.4-8.2)
[2017-09-28 21:23] LABS: TOTAL CELLS COUNTED 100 #CELLS
[2017-09-28 21:25] LABS: PLATELET SUFFICIENCY NORMAL (NORMAL)
[2017-09-28 22:42] LABS: BILIRUBIN NEGATIVE (NEGATIVE); BLOOD 3+ (NEGATIVE); CLARITY CLEAR (CLEAR); COLOR YELLOW (YELLOW); GLUCOSE NEGATIVE (NEGATIVE); KETONE NEGATIVE (NEGATIVE); LEUKO ESTERASE NEGATIVE (NEGATIVE); NITRITE NEGATIVE (NEGATIVE); PH 6.5 (5.0-9.0); UROBILINOGEN 0.2 E.U./dl (0.2-1.0)
[2017-09-28 22:49] LABS: RBC 51-100 rbc/hpf (0-2)
[2017-09-28 22:50] LABS: BACTERIA TRACE
== END 2017-09-29 01:17 | disposition home or self-care (01) ==
LOC: ED 20:15
PROVIDERS: Emergency Medicine; Family Medicine
DX: R10.9 Unspecified abdominal pain (principal); J44.9 Chronic obstructive pulmonary disease, unspecified; E78.5 Hyperlipidemia, unspecified; I10 Essential (primary) hypertension; E11.9 Type 2 diabetes mellitus without complications; I50.9 Heart failure, unspecified; G43.109 Migraine with aura, not intractable, without status migrainosus; Z88.1 Allergy status to other antibiotic agents; Z88.8 Allergy status to other drugs, medicaments and biological substances; Z88.6 Allergy status to analgesic agent; Z79.899 Other long term (current) drug therapy

== ENCOUNTER → 2017-10-04 | Outpatient (CLI) | payer MEDICARE ==
[~2017-10-04] MED LIST changes: +CUBICIN RF500 MG IV; +LEVEMIR100 UNIT/1 SC; +NEURONTIN300 MG PO; +NOVOLOG10 ML IV; +PERCOCET 7.5-31 EACH PO
== END | disposition home or self-care (01) ==
LOC: WOUNDCARE 02:04
DX: T81.89XD Other complications of procedures, not elsewhere classified, subsequent encounter (principal); E11.9 Type 2 diabetes mellitus without complications; Z43.3 Encounter for attention to colostomy; Z85.030 Personal history of malignant carcinoid tumor of large intestine; Z85.72 Personal history of non-Hodgkin lymphomas; Y83.8 Other surgical procedures as the cause of abnormal reaction of the patient, or of later complication, without mention of misadventure at the time of the procedure

== ENCOUNTER 2017-10-21 18:11 | Emergency (ER) | payer MEDICARE ==
[~2017-10-21] VITALS: Ht 187.9 cm; Wt 127.0 kg
[~2017-10-21 18:11] MED LIST changes: -CUBICIN RF500 MG IV; -LEVEMIR100 UNIT/1 SC; -NEURONTIN300 MG PO; -NOVOLOG10 ML IV; -PERCOCET 7.5-31 EACH PO
[2017-10-21 18:20] VITALS: BP 116/57
[2017-10-21 19:38] LABS: BASO # 0.1 10*3/uL (0.0-0.1); BASO % 0.8 % (0.0-1.0); EOS # 0.2 10*3/uL (0.0-0.4); EOS % 1.9 % (1.0-4.0); HEMATOCRIT 43.2 % (42.0-52.0); HEMOGLOBIN 14.1 g/dl (14.0-18.0); LYMPH # 3.6 10*3/uL (1.3-4.4); LYMPH % 33.6 % (27.0-41.0); MEAN CELL VOLUME 82.4 fl (80.0-94.0); MEAN CORPUSCULAR HGB 26.9 pg (27.0-31.0); MEAN CORPUSCULAR HGB CONC 32.6 g/dl (33.0-37.0); MONO # 1.1 10*3/uL (0.1-1.0); MONO % 10.4 % (3.0-9.0); NEUT # 5.6 10*3/uL (2.3-7.9); NEUT % 52.5 % (47.0-73.0); PLATELET COUNT AUTOMATED 268 10*3/uL (130-400); RED BLOOD COUNT 5.24 10*6/uL (4.50-5.90); RED CELL DISTRI WIDTH 14.3 % (0-14.5); WHITE BLOOD COUNT 10.6 10*3/uL (4.8-10.8)
[2017-10-21 19:54] LABS: ALBUMIN 3.5 gm/dl (3.1-4.5); ALKALINE PHOSPHATASE 144 U/L (45-117); BUN 13 mg/dl (7-24); CHLORIDE 99 mmol/L (98-107); CREATININE 1.03 mg/dL (0.70-1.30); LIPASE 233 U/L (73-393); POTASSIUM 3.3 mmol/L (3.5-5.1); SGOT/AST 11 IU/L (3-35); SGPT/ALT 22 U/L (12-78); SODIUM 138 mmol/L (136-145); TOTAL PROTEIN 7.7 gm/dL (6.4-8.2)
[2017-10-21 20:30] LABS: BILIRUBIN NEGATIVE (NEGATIVE); BLOOD 3+ (NEGATIVE); CLARITY CLEAR (CLEAR); COLOR YELLOW (YELLOW); GLUCOSE NEGATIVE (NEGATIVE); KETONE NEGATIVE (NEGATIVE); LEUKO ESTERASE NEGATIVE (NEGATIVE); NITRITE NEGATIVE (NEGATIVE); UROBILINOGEN 0.2 E.U./dl (0.2-1.0)
[2017-10-21 20:46] LABS: BACTERIA TRACE; HYALINE CAST 0-2; RBC 16-20 rbc/hpf (0-2)
== END 2017-10-21 21:32 | disposition home or self-care (01) ==
LOC: ED 18:11
PROVIDERS: Nurse Practitioner Family
DX: R10.9 Unspecified abdominal pain (principal); Z88.6 Allergy status to analgesic agent; Z88.8 Allergy status to other drugs, medicaments and biological substances; Z79.899 Other long term (current) drug therapy

== ENCOUNTER 2017-10-29 07:57 | Inpatient (IN) | payer MEDICARE ==
[~2017-10-29] VITALS: Ht 188 cm; Wt 122.6 kg
--- NOTE | ~2017-10-29 | PR ---
[place], [place] PROGRESS NOTE NAME: CLARE KUMARI UNIT #: [id number] ROOM: 529 DOCTOR: SPARKLE CONTRERAS MD BIRTHDATE: [birth year] DOS: 10/31/2017 SUBJECTIVE: The patient is feeling better. He is asymptomatic, no chest pain, no shortness of breath, no GI or urinary symptoms. OBJECTIVE: GENERAL APPEARANCE: The patient is alert and oriented x 3, in no visible distress. Morbid obesity. VITAL SIGNS: Blood pressure 114/64, heart rate of 81 beats per minute, breathing 18 times per minute, afebrile. HEENT AND NECK: Exam within normal limits. CARDIOVASCULAR SYSTEM: Heart rate is regular in rate and rhythm. S1 and S2 normally audible. LUNGS: Clear to auscultation. ABDOMEN: Soft, nontender. No obvious organomegaly. Bowel sounds are present. EXTREMITIES: Without significant cyanosis or edema. IMPRESSION: 1. The patient has colostomy after surgery for colon cancer, is waiting for reversal of colostomy surgery tomorrow by Dr. Torres. He is asymptomatic. 2. Chronic primary insomnia, treated with trazodone. 3. Chronic obstructive pulmonary disease. The patient remains on bronchodilators, Daliresp. 4. Factor V Leiden factor deficiency, heterozygous with coagulopathy, treated with IV heparin presently, which will be stopped for surgery and the patient will be restarted on Eliquis at the time of discharge. 5. History of deep vein thrombosis. 6. Type 2 diabetes mellitus. Blood sugars are reasonably controlled at this time. 7. Mixed hyperlipidemia, followed and treated. 8. Benign essential hypertension. Blood pressure is being treated, monitored and now reasonably controlled. The patient being encouraged to move around on regular basis and not stay in bed. [place], [place] PROGRESS NOTE NAME: CLARE KUMARI UNIT #: [id number] ROOM: 529 DOCTOR: SPARKLE CONTRERAS MD BIRTHDATE: [birth year] SPARKLE CONTRERAS MD CM:PNTRANS [id number] SPARKLE CONTRERAS MD 10/31/17 1213 interface
--- NOTE | ~2017-10-29 | PR ---
[place], [place] PROGRESS NOTE NAME: CLARE KUMARI UNIT #: [id number] ROOM: [facility] DOCTOR: SPARKLE CONTRERAS MD BIRTHDATE: [birth year] DOS: 11/02/2017 SUBJECTIVE: The patient is status post reversal of colostomy yesterday. OBJECTIVE: VITAL SIGNS: Blood pressure 125/70, heart rate 99 beats per minute, breathing 14 times per minute and temperature of 99.3 degrees Fahrenheit. GENERAL APPEARANCE: The patient is alert and oriented x 3, in no visible distress, except for morbid obesity.. HEENT AND NECK: Exam within normal limits. CARDIOVASCULAR SYSTEM: Heart rate is regular in rate and rhythm. S1 and S2 normally audible. LUNGS: Clear to auscultation. ABDOMEN: Soft, nontender. No obvious organomegaly. Bowel sounds are present. The patient has wound VAC in place where he has previous nonhealing wounds and reversal of colostomy. EXTREMITIES: Without significant cyanosis or edema. IMPRESSION: 1. The patient is status post diagnostic laparoscopy, takedown colostomy, lysis of adhesions, resection of small bowel fistula, small bowel resection with anastomosis, colorectal anastomosis and placement of wound VAC, recovering in the ICU. 2. Mechanical intubation and mechanical ventilation after surgery. He is being weaned off the mechanical ventilation and is on the CPAP right now and saturating well. 3. Chronic obstructive pulmonary disease, treated with bronchodilators, stable and the patient also remains on Daliresp. 4. Coagulopathy with factor V Leiden factor deficiency, heterozygous and hyper-coagulopathy, treated with anticoagulation. 5. The patient has history of deep vein thrombosis secondary to coagulopathy, asymptomatic. 6. Type 2 diabetes mellitus. Blood sugar is being monitored and treated. 7. Mixed hyperlipidemia, treated with Lipitor. 8. Benign essential hypertension. Blood pressure is being monitored, treated and controlled. [place], [place] PROGRESS NOTE NAME: CLARE KUMARI UNIT #: [id number] ROOM: [facility] DOCTOR: SPARKLE CONTRERAS MD BIRTHDATE: [birth year] SPARKLE CONTRERAS MD CM:PNTRANS [phone] SPARKLE CONTRERAS MD 11/02/17 1057 interface
--- NOTE | ~2017-10-29 | PR ---
[place], [place] PROGRESS NOTE [id number] UNIT #: [id number] ROOM: 526 DOCTOR: PHYLLIS VILCHIS MD,MATIAS BIRTHDATE: [birth year] DOS: 11/06/2017 SUBJECTIVE: He has been comfortably resting on his bed. He remains n.p.o. The patient was getting the nutrition support with the TPN. His culture in the abdomen for the patient was noted positive for light growth of gram-negative bacilli at the present time. He has been transferred from the intensive care unit to the medical floor. Respiratory mcneal, the patient denies symptoms of shortness of breath, coughing, or sputum expectoration. OBJECTIVE: VITAL SIGNS: Low grade fever noted 100.3 degree Fahrenheit was still noted. Respiratory rate recorded as otherwise 20, heart rate 68, blood pressure 104/66. Pulse oxygen saturation 3 liters per nasal cannula was 95% saturation. HEENT: No acute change. NECK: Supple and obese. CARDIOVASCULAR: S1 and S2. LUNGS: Decreased breath sounds in the lung bases for this patient. There were no crackles or wheezing. ABDOMEN: Soft, nontender. EXTREMITIES: Without any acute edema. IMPRESSION: 1. The patient with acute peritonitis has been noted at the present time with current cultures positive for gram-negative bacilli. Low grade fever noted. 2. Stable respiratory status of bronchial asthma and sleep apnea disorder. PLAN OF THERAPY: No changes in the plan of management at this time. Continue the patient's current plan of care as in progress. Usual care. Other supportive treatments. MATIAS FERGUSON MD CM:PNTRANS [id number] MATIAS VILCHIS MD 11/06/17 1645 interface
--- NOTE | ~2017-10-29 | PR ---
[place], [place] PROGRESS NOTE NAME: [id number] UNIT #: [id number] ROOM: 526 DOCTOR: PHYLLIS VILCHIS MD,MATIAS BIRTHDATE: [birth year] DOS: 11/08/2017 PULMONARY PROGRESS NOTE SUBJECTIVE: The patient was noted comfortable at this time without any acute distress. Resting on the bed. Still getting TPN administration. He does have a mild cough, but not noted significant and severe. There were no symptoms of shortness of breath. The patient denies any symptoms of chest pain, using his BiPAP as ordered. OBJECTIVE: VITAL SIGNS: Normal temperature, respiratory rate 18, heart rate 84, blood pressure 136/74 recorded. The pulse oxygen saturation of the patient recorded on 3 liters nasal cannula 96% saturation. HEENT: Examination shows head was atraumatic. Eyes nonicterus. NECK: Supple. It was obese. CARDIOVASCULAR SYSTEM: S1, S2 is audible. LUNGS: The patient was noted without any wheezing or crackles. ABDOMEN: Soft, nontender. EXTREMITIES: Without any acute edema. IMPRESSION: Stable respiratory status was noted. The patient with bronchial asthma. Obstructive sleep apnea disorder. PLAN: Currently treated for the patient with intravenous antibiotics. Postsurgery, removal of the mesh from the abdomen. Reversal of colostomy for the two different infections as Enterococcus and gram negative infections. PLAN OF TREATMENT: No changes from the pulmonary standpoint. Continue the patient's current medical treatment as in progress. Other usual care. Supportive plan of management and care therapies. MATIAS FERGUSON MD CM:PNTRANS [id number] MATIAS VILCHIS MD 11/08/172012 interface
--- NOTE | ~2017-10-29 | PR ---
[place], [place] PROGRESS NOTE [id number] UNIT #: [id number] ROOM: 526 DOCTOR: SPARKLE CONTRERAS MD BIRTHDATE: [birth year] DOS: 11/06/2017 SUBJECTIVE: The patient is feeling much better. He is still n.p.o. after bowel surgery and he is on hyperal. Leukocytosis after surgery as expected. The patient's blood counts are being monitored. PHYSICAL EXAMINATION: VITAL SIGNS: Blood pressure 131/84, heart rate of 62 beats per minute, breathing 20 times per minute, temperature 98 degrees Fahrenheit. GENERAL APPEARANCE: Obesity. HEENT AND NECK: Exam within normal limits. CARDIOVASCULAR SYSTEM: Heart rate is regular in rate and rhythm. S1 and S2 normally audible. LUNGS: Clear to auscultation. ABDOMEN: Soft, nontender. No obvious organomegaly. Bowel sounds are present. EXTREMITIES: Without significant cyanosis or edema. IMPRESSION: 1. The patient is status post reversal of colostomy, lysis of adhesions, resection of small bowel fistula and small bowel resection with anastomosis, also colorectal anastomosis and wound VAC is in place. The patient is recovering, but still n.p.o. and on hyperal. Nutrition maintain with hyperalimentation. 2. Centrilobular emphysema treated with bronchodilators. 3. Coagulopathy and factor V Leiden factor deficiency. The patient anticoagulated. 4. Mixed hyperlipidemia treated with Lipitor. 5. Type 2 diabetes mellitus. Blood sugars being monitored and controlled. 6. History of deep vein thrombosis secondary to coagulopathy in the past, asymptomatic. We are taking deep venous thrombosis prophylaxis. SPARKLE CONTRERAS MD CM:PNTRANS [phone] SPARKLE CONTRERAS MD 11/06/172231 interface
--- NOTE | ~2017-10-29 | PR ---
[place], [place] PROGRESS NOTE NAME: CLARE KUMARI UNIT #: [id number] ROOM: [facility] DOCTOR: MATIAS DODSON MD BIRTHDATE: [birth year] DOS: 11/04/2017 SUBJECTIVE: He remains comfortable at this time. The tachycardia has resolved. The patient denies symptoms of acute shortness of breath at rest. Oxygen supplementation continued. He was also using the BiPAP intermittently. He remains awake and alert this morning of assessment. OBJECTIVE: VITAL SIGNS: The patient was noted to have a fever of 101 degrees Fahrenheit yesterday afternoon and 100 degrees Fahrenheit noted this morning. Respiratory rate 11 to 13, heart rate 108, blood pressure 137/75. HEENT: Examination shows chronic obesity. NECK: Supple. CARDIOVASCULAR: S1, S2 audible. LUNGS: The patient was noted without any crackles or rhonchi. There was no wheezing. ABDOMEN: Status post surgery. Bowel sounds present. EXTREMITIES: Without any acute edema. LABORATORY DATA: The labs done on this patient. CBC, today WBC count 13.9, hemoglobin 11, platelet count was normal. Electrolyte panel is noted with a calcium of 8.2. IMPRESSION: 1. The patient is status post abdominal surgery, reversal of colostomy and extraction of the mesh from the abdomen. 2. Fever. The patient's etiology is unclear. 3. Respiratory insufficiency, post-surgery, which is nonthoracic. Stable at the present time. 4. Obstructive sleep apnea disorder, bronchial asthma, all remains stable. PLAN OF MANAGEMENT: No changes in the plan of therapy at this time. Continue the patient's current plan and management as previously. Usual care. All other supportive plan of therapy and care plan. Additional treatment changes to be made based on progression of the illness. [place], [place] PROGRESS NOTE NAME: CLARE KUMARI UNIT #: [id number] ROOM: [facility] DOCTOR: MATIAS DODSON MD BIRTHDATE: [birth year] MATIAS FERGUSON MD CM:PNTRANS [phone] MATIAS VILCHIS MD 11/04/17 1320 interface
--- NOTE | ~2017-10-29 | PR ---
[place], [place] PROGRESS NOTE NAME: CLARE KUMARI UNIT #: [id number] ROOM: 526 DOCTOR: SPARKLE CONTRERAS MD BIRTHDATE: [birth year] DOS: 11/07/2017 SUBJECTIVE: The patient continues to feel better, but he is still not moving any air from below and is kept n.p.o. and on hyperalimentation. OBJECTIVE: VITAL SIGNS: Blood pressure 100/54, heart rate of 86 beats per minute, afebrile, pulse ox 96%. GENERAL APPEARANCE: The patient is alert and oriented x 3, in no visible distress. Morbid obesity. HEENT AND NECK: Exam within normal limits. CARDIOVASCULAR SYSTEM: Heart rate is regular in rate and rhythm. S1 and S2 normally audible. LUNGS: Clear to auscultation. ABDOMEN: No bowel sounds. Wound VAC in place on his abdominal wounds and MediPort in place and the patient receiving hyperalimentation infusion through the MediPort. EXTREMITIES: Without significant cyanosis or edema. IMPRESSION: 1. The patient is status post reversal of colostomy, lysis of adhesions, resection of small bowel fistula and small bowel resection with anastomosis and colorectal anastomosis with wound VAC in place where he had nonhealing ventral abdominal wound since his last surgery. The patient remains n.p.o. and his bowels are not functional so far after surgery. Dr. Torres, his surgeon is following. 2. For nutrition, the patient remains on hyperalimentation, which is being continued along with shaking of his serum electrolytes, liver enzymes, to maintain nutrition. 3. Centrilobular emphysema. The patient remains on bronchodilators. 4. Coagulopathy with factor V Leiden factor deficiency. The patient anticoagulated. 5. Mixed hyperlipidemia, treated with Lipitor. 6. Type 2 diabetes mellitus. Blood sugars are being monitored and treated. 7. Previous history of deep vein thrombosis related to coagulopathy, asymptomatic. The patient on DVT prophylaxis. [place], [place] PROGRESS NOTE NAME: CLARE KUMARI UNIT #: [id number] ROOM: 526 DOCTOR: SPARKLE CONTRERAS MD BIRTHDATE: [birth year] SPARKLE CONTRERAS MD CM:SERA 1106 [id number] SPARKLE CONTRERAS MD 11/07/17 1146 interface
--- NOTE | ~2017-10-29 | WRIGHTHP ---
[place], [place] PATIENT HISTORY AND PHYSICAL EXAM NAME: CLARE KUMARI [facility] #: [id number] UNIT #: [id number] ROOM: 529 DOCTOR: SHY TRAYLOR MD BIRTHDATE: [birth year] DOS: 10/29/2017 CHIEF COMPLAINT: The patient admitted for anticoagulation and reversal of colostomy. HISTORY OF PRESENT ILLNESS: This is a 52-year-old patient seen by me in the wound clinic for the last few months with a prior sigmoid resection and end colostomy and Cristopher's procedure for what he says was a carcinoma of the colon, but when researched per records from [facility] actually turned out to be from polyp disease that was apparently unresectable endoscopically. He had endoscopy done in June 2017, which shows adequate proximal colon length with a small benign polyp that was removed at that time as well an adequate Cristopher's pouch about 25 cm in length with appropriate anatomy present for reversal of colostomy. He is admitted preoperatively for heparinization as he has factor V Leiden factor deficiency and is hypercoagulable as well. He has multiple medical problems including chronic obstructive lung disease and bronchitis, which has been optimized preoperatively by Dr. Kaur. The patient is admitted for heparinization and then holding his heparin and elective reversal of his colostomy at this time. He does not have any significant symptomatic complaints at this time. He was brought in for management of his chronic conditions to optimize him for surgery preoperatively, in particular to manage his anticoagulation status. PAST MEDICAL HISTORY: Anxiety disorder, asthma, chronic obstructive lung disease, previous history of congestive heart failure. 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 PAST SURGICAL HISTORY: Upper and lower endoscopy in the past. He has a placement of a MediPort previously, left-sided foot surgery, left-sided arthroscopy and his prior colectomy and resection. SOCIAL HISTORY: He is a nonsmoker, does not use alcohol. He reports no illicit drug use. FAMILY HISTORY: The patient's father had emphysema. The patient's mother is at age 30 from cervical cancer. He also has a history of heart disease in his family, which is not related to particular relative. COATED ALLERGIES: NUBAIN, WHICH CAUSED A SEIZURE IN FEBRUARY 2017, CODEINE AND LEVOFLOXACIN DURING SAME HOSPITALIZATION CAUSED ITCHING, RITUXAN WITH NO SPECIFIC ALLERGY NOTED. ACETAMINOPHEN, PROPOXYPHENE AND DARVOCET WITH UNKNOWN REACTION AT THE SAME TIME. METFORMIN, WHICH CAUSED ELEVATED LACTIC ACID AT THE SAME TIME. MEDICATIONS: Presently include trazodone 150 mg at bedtime, roflumilast 500 mcg daily p.o., propranolol 80 mg daily p.o., Tradjenta 5 mg daily p.o., Celexa 40 [place], [place] PATIENT HISTORY AND PHYSICAL EXAM NAME: CLARE KUMARI UNIT #: [id number] ROOM: 529 DOCTOR: SHY TRAYLOR MD BIRTHDATE: [birth year] mg daily p.o., Bumex 2 mg daily p.o., omeprazole 20 mg b.i.d. p.o., glipizide 10 mg b.i.d. p.o., Trintellix 10 mg p.o. at bedtime, Latuda 40 mg p.o. at bedtime, Neurontin 300 mg t.i.d. q. 8 hours p.o., Klonopin 1 mg b.i.d. p.o., Lipitor 10 mg p.o. at bedtime, Antivert 25 mg t.i.d. p.o. as well as he is receiving insulin per sliding scale and is on a heparin drip presently with adequate PTT at the present time per nomogram. REVIEW OF SYSTEMS: GENERAL: The patient denies fevers, chills, weight loss or weight gain. HEENT: No symptoms reported. CARDIOVASCULAR: Denies chest pain, palpitations, lower extremity edema or diaphoresis. RESPIRATORY: The patient denies shortness of breath, cough or wheezing, hemoptysis or sputum production. ABDOMEN: The patient complains of abdominal pain, which is usual chronic complaint. He denies nausea or emesis, diarrhea or constipation. The colostomy is functioning normally. There has been no blood from the colostomy. GENITOURINARY: The patient denies dysuria, hematuria or change in frequency. NEUROLOGIC: The patient denies lightheadness, dizziness or confusion. PSYCHIATRIC: The patient does report anxiety. Denies substance abuse. ENDOCRINE: The patient denies polydipsia, heat or cold intolerance. SKIN: The patient denies any rashes, lesions or ulcers. PHYSICAL EXAMINATION: GENERAL: A 52-year-old gentleman who appears stated age, alert and oriented to time, place and person. No obvious distress. He is 6 feet 2 inches and weighs 122 kilograms. VITAL SIGNS: At time of admission, blood pressure 128/80, pulse 78 and regular, respirations 20 and unlabored, temperature 97.6, bedside pulse oximetry on 2 liters nasal cannula was 97%. The patient is awake, alert, in no distress. HEENT: Head is normocephalic, atraumatic. Pupils equal and react to light with no lesions and sclerae nonicteric. ENT: There are no scars or masses. Nares and oropharynx are patent and clear. Oral mucosa is moist. Septum is midline. There is no pharyngeal exudate and the tongue protrudes in the midline without deviation. NECK: There are no scars. Trachea is midline. Thyroid is not enlarged. There is nontender. There are no neck masses. The neck is supple and nontender to palpation. HEART: Regular rate and rhythm without murmur or gallop. There are no carotid bruits. Chest excursions are equal without retractions. LUNGS: Clear to auscultation with minimal wheeze. There are no rhonchi. ABDOMEN: The patient reveals healed old low midline incision and laparoscopic trocar sites. Active bowel sounds. There is a colostomy present, which is functioning normally in the left lower quadrant with appliance in place. There is a small sinus tract in the old incision, which has minimal nonpurulent drainage. He has been followed in Wound Clinic for some time. BACK: No CVA or spinous tenderness. EXTREMITIES: No clubbing, cyanosis or edema. Neurovascular examination is intact. NEUROLOGIC: Grossly intact with no focal neurologic deficits. Cranial nerves [place], [place] PATIENT HISTORY AND PHYSICAL EXAM [id number] UN[facility] #: [id number] ROOM: 529 DOCTOR: SHY TRAYLOR MD BIRTHDATE: [birth year] 2-12 are grossly intact. PSYCHOLOGICAL: The patient is an adequate historian with fair judgment and insight. He is somewhat anxious. SKIN: Warm and dry with no ulcerations or lesions other than the aforementioned skin lesion at the old incision. ASSESSMENT: 1. Abdominal pain. 2. History of colostomy. 3. Factor V Leiden factor deficiency (heterozygous) with coagulopathy. 4. Previous history of deep venous thrombosis. 5. Insulin-dependent diabetes mellitus. 6. Chronic obstructive lung disease with asthma. 7. Depression. 8. Hyperlipidemia. 9. Hypertension. PLAN: The patient is for reversal of his colostomy. He was admitted then, placed on heparin drip, having stopped his Eliquis for anticoagulation on the evening prior to admission. He will be heparinized per heparin nomogram and will give him a bowel prep on Sunday and plan for surgery sometime on Sunday. Risks, benefits and possible complications have been discussed with the patient in the wound clinic several times at length. He agrees to informed consent. See orders. SHY TRAYLOR MD CM:HISPHYS:PATIENT HISTORY AND PHYSICAL EXAMINATION [id number] SPARKLE TRAYLOR MD 10/30/17 1646 interface
--- NOTE | ~2017-10-29 | PR ---
[place], [place] PROGRESS NOTE NAME[facility]: [id number] UNIT #: [id number] ROOM: [facility] DOCTOR: JESSICA MOYER MD BIRTHDATE: [birth year] DOS: SUBJECTIVE: The patient is doing fine without any complaints this morning. He was placed on PREFORMS LAMINATOR pump because of continued complaints of pain. OBJECTIVE: VITAL SIGNS: Graphic trend shows a pressure of 94/62, pulse of 120, respirations 16, temperature 98.3, T-max of 100.1. LUNGS: Diminished breath sounds. HEART: Regular. ABDOMEN: Obese with a wound VAC in place. Colostomy has been reversed. EXTREMITIES: Without any edema. LABORATORY DATA: This morning, WBC count is 18.7, hemoglobin 13.4, hematocrit 42.7, platelets 192. MRSA of the nares was negative. Comprehensive glucose 171, BUN 5, creatinine 1.10, sodium 139, potassium 4.0, chloride 104, bicarbonate 27. Liver enzymes were normal. ASSESSMENT AND PLAN: 1. The patient underwent reversal of colostomy, which also involved adhesiolysis, resection of a small bowel fistula and placement of wound VAC. The patient is stable. Pain is controlled with the PREFORMS LAMINATOR. 2. Protein-calorie malnutrition, postoperatively, the patient will be placed on TPN. 3. History of respiratory failure, now weaned off on a CPAP. 4. Factor V Leiden mutation, on anticoagulation. 5. Type 2 diabetes mellitus. Blood sugars controlled. A low dose of insulin will be added to the TPN. JESSICA MOYER MD CM:PNTRANS [phone] JESSICA MOYER MD 11/03/172039 interface
--- NOTE | ~2017-10-29 | CON ---
[place], [place] REPORT OF CONSULTATION NAME: CLARE KUMARI [facility] #: [id number] UNIT #: [id number] ROOM: [facility] DOCTOR: MATIAS DODSON MD BIRTHDATE: [birth year] DOS: 11/02/2017 PULMONARY CONSULTATION, CRITICAL CARE EVALUATION, AND MANAGEMENT CONSULTATION REQUESTED BY: Dr. Torres. REASON FOR CONSULTATION: Assessment of current acute respiratory insufficiency of the patient post-surgery. HISTORY OF PRESENT ILLNESS: This is a 52-year-old patient, known with history of long-term anticoagulation, chronic, hypercoagulable status, and thromboembolism. The patient admitted to the hospital for reversal of the anticoagulation to reverse his previous colostomy. The patient had been admitted to the hospital. His usual anticoagulation discontinued and the patient was started on the heparin sulfate for therapeutic coagulation. The patient underwent surgical intervention for reversal of the colostomy for this patient that was done yesterday. He was also noted with other problem, which has been found during the surgery as the mesh, which was noted in the abdomen. The patient also noted with a small bowel fistula and adhesions. All the surgery was completed and over 6 hours was spent for the surgery. The patient has about 150 mL of blood loss. The patient has been known with history of bronchial asthma and other respiratory illnesses and continues to remain on mechanical ventilation. The patient remains on the mechanical ventilation, sedated with intravenous Diprivan with assist control mode of mechanical ventilation. Oxygen supplementation has been gradually decreased to 40% oxygen supplementation this morning. The PEEP was noted 7 cm water as well. The patient has been breathing well comfortably and sedated with intravenous Diprivan on this morning of assessment. REVIEW OF SYSTEMS: Could not be completed. The other history of the patient also contained in this document is from review of my past consultation and medical records of the patient on his previous assessment. The patient has been admitted to the hospital previously in August 2017 and managed the patient for acute exacerbation of bronchial asthma and other symptoms and discharged home after that. PAST MEDICAL HISTORY: 1. Uncomplicated severe persistent bronchial asthma. 2. History of factor V Leiden deficiency and hypercoagulable status. 3. History of thromboembolism. 4. Type 2 diabetes mellitus. 5. Obstructive sleep apnea disorder. 6. Chronic hypoxic respiratory failure. 7. History of chronic migraine. 8. History of anxiety and depression. 9. History of non-Hodgkin lymphoma, which was treated in 2004 and remains in remission. 10. Chronic left vocal cord paralysis and dysphonia. 11. History of deep venous thrombosis. 12. Past colostomy for the patient as well. [place], [place] REPORT OF CONSULTATION NAME: CLARE KUMARI UNIT #: [id number] ROOM: [facility] DOCTOR: PHYLLIS VILCHIS MD,MATIAS BIRTHDATE: [birth year] 13. General anxiety disorder, depression, and schizophrenia as well. SOCIAL HISTORY: The patient is not , lives at home. He does not have any history of illicit drug use. There was no history of alcohol use or any tobacco use in the past as well. PAST SURGICAL HISTORY: 1. Tendon repair of the left foot. 2. Therapeutic bronchoscopy in the past. 3. Colostomy with resection of the bowel. 4. Incisional hernia repair as well. FAMILY HISTORY: The patient's father noted with history of COPD. Mother at age 3939 years old, complication related to the cancer of the cervix. MEDICATIONS: The current administered medication by the patient was noted as use of Lovenox for DVT prophylaxis, trazodone, Tradjenta, Daliresp, propranolol, citalopram, Bumex, omeprazole, glipizide, Trintellix, Latuda, gabapentin, Lipitor, IV Zosyn, Klonopin, and intravenous propofol. DRUG ALLERGIES: The patient was noted as allergies: 1. CODEINE. 2. DARVOCET. 3. METFORMIN. 4. NUBAIN. 5. LEVAQUIN. 6. RITUXAN. PHYSICAL EXAMINATION: GENERAL: This is a 52-year-old white male, who has been currently noted intubated, mechanical ventilator, sedated. Height of 6 feet 2 inches, weight of 270 pounds, BMI 34.7. VITAL SIGNS: Temperature of the patient noted as low grade at 100 degree Fahrenheit to normal temperature, respiratory rate ranged between 14 and 15, heart rate of 108-105, blood pressure 123/68-124/71. The pulse oxygen saturation of the patient noted on 40% oxygen 98% saturation. HEENT: Examination shows head was atraumatic. The patient is orally intubated and nasogastric tube is in place. NECK: Supple. CARDIOVASCULAR: S1, S2 audible. LUNGS: The patient was noted with [id number] decreased breath sounds without wheeze or crackles. ABDOMEN: Soft, nontender. Status post surgery. Moderate obesity. EXTREMITIES: Chronic obesity without any edema, clubbing, or cyanosis. MUSCULOSKELETAL: Without any acute deformities. LABORATORY DATA: Admission lab for this patient on 10/29/2017, the patient's WBC count 11.5. It was normal CBC. PT and PTT were noted normal on 10/29/2017. CMP of 10/29/2017, glucose 156, potassium 3.2, with a normal CMP. The BMP of the patient of 10/31/2017 was noted as glucose of 130. The rest of the BMP was [place], [place] REPORT OF CONSULTATION NAME: CLARE KUMARI UNIT #: [id number] ROOM: [facility] DOCTOR: MERRITT DODSON MDM BIRTHDATE: [birth year] normal. Arterial blood gas on the patient that was done on 11/01/2017 on the mechanical ventilator, pH of 7.39, pCO2 of 40, pO2 of 79. CBC of the patient that was done this morning for the patient, WBC count 22.5, hemoglobin and hematocrit normal, platelet count was normal. Creatinine was noted as normal. Arterial blood gases for the patient this morning repeated again on 50% oxygen, pH of 7.41, pCO2 of 38, pO2 151. IMAGING STUDIES: The chest x-ray of the patient on admission on 10/29/2017, 2-view, which are reviewed from PACS images, noted no acute abnormalities. The chest x-ray of the patient that was done this morning was noted appropriately placed endotracheal tube. NG tube in the stomach. The lungs remains clear for the patient without any acute pulmonary infiltration. IMPRESSION: 1. The patient who has been currently admitted to the hospital noted with current acute respiratory insufficiency with a history of bronchial asthma. The patient is status post reversal of the colostomy, extraction of the mesh from the abdomen, and the fistula repair of small bowel and separation of adhesions of the intestine. 2. History of longstanding chronic hypoxic respiratory failure as well. 3. History of uncomplicated severe persistent bronchial asthma without any evidence of acute exacerbation. 4. Leukocytosis, most likely stress induced; however, low grade fever noted, most likely postsurgery. At this time, there were no signs of active major infection known; however, the patient is currently treated with broad spectrum intravenous antibiotics started with Dr. Torres with Zosyn that will be continued at the present time. 5. The patient with history of chronic thromboembolism. PLAN OF TREATMENT: Currently, the patient is receiving only the therapeutic anticoagulation whenever feasible. The patient could be started on a usual anticoagulation with use of Xarelto or Eliquis or unfractionated heparin for the patient whatever is approved by Dr. Torres. The patient's sedation has been discontinued and he started waking up appropriately with normal mental status. He had been started on CPAP 5, pressure support of 10 that will be continued for 2 hours with reassessment with arterial blood gases on that mode of mechanical ventilation prior to liberation from mechanical ventilation. After liberation from mechanical ventilation, the patient could be given either use of the BiPAP or he can continue with his home CPAP well. Monitoring the temperature curve. Continue other supportive therapy, plan of management for the patient as well. Bronchodilator to help mobilize secretion. Postoperative care for this patient with the use of incentive spirometry post-liberation from mechanical ventilation will be given. Supportive therapy, plan of management and other care. Additional treatment changes will be done on the patient based on the progression of the illness. Assessment and management of the patient was discussed with Dr. Torres as well. Total time in pulmonary critical care evaluation and management was 40 minutes. [place], [place] REPORT OF CON[facility]ATION [id number] UNIT #: [id number] ROOM: [facility] DOCTOR: MATIAS DODSON MD BIRTHDATE: [birth year] MATIAS FERGUSON MD CM:CONSTR:REPORT OF CONSULTATION 1322 11/03/17 0357 interface
--- NOTE | ~2017-10-29 | PR ---
[place], [place] PROGRESS NOTE NAME: CLARE KUMARI UNIT #: [id number] ROOM: 526 DOCTOR: MATIAS DODSON MD BIRTHDATE: [birth year] DOS: 11/07/2017 PULMONARY PROGRESS NOTE SUBJECTIVE: The patient was noted comfortable at this time without any acute distress. Has not been noted any ongoing acute new complaints at present time. The wound culture of the patient was noted Enterococcus as well as Enterobacter. The Enterococcus was noted penicillin sensitive species. The patient has using his ____ BiPAP from here. He has been using oxygen supplementation during the day. Denies symptoms of coughing, sputum expectoration, chest pain. Continued TPN. OBJECTIVE: VITAL SIGNS: The temperature was noted normal, respiration rate 20, heart rate 86, blood pressure ____. Pulse oxygen saturation of the patient recorded 3 liters nasal cannula 96% saturation. HEENT: Moderate obesity. NECK: Supple and obese. CARDIOVASCULAR: S1, S2 audible. LUNGS: Noted without any wheeze or crackles. ABDOMEN: Soft, status post surgery with obesity. EXTREMITIES: No new changes. LABORATORY DATA: BMP today normal BUN and creatinine. IMPRESSION: 1. The patient who has been noted with the current wound infection and status post surgery for the patient and extraction of the mesh from the abdomen and reversal of the colostomy. 2. Obstructive sleep apnea disorder, bronchial asthma, all remains stable. PLAN OF THERAPY: No changes in the plan for the patient at this time will be necessary. Continue the patient's current plan of care. Usual treatment, all other supportive plan of management. [place], [place] PROGRESS NOTE NAME: CLARE KUMARI UNIT #: [id number] ROOM: 526 DOCTOR: MATIAS DODSON MD BIRTHDATE: [birth year] MATIAS FERGUSON MD CM:PNTRANS [id number] MATIAS VILCHIS MD 11/07/17 1433 interface
--- NOTE | ~2017-10-29 | PR ---
[place], [place] PROGRESS NOTE [id number] UNIT #: [id number] ROOM: [facility] DOCTOR: MATIAS DODSON MD BIRTHDATE: [birth year] DOS: 11/03/2017 SUBJECTIVE: The patient was discussed, thoroughly liberated from mechanical ventilator yesterday and not been noted any ongoing acute new complaints at present time. Denies symptoms of chest pain or any hemoptysis. The patient was started on BiPAP, after the liberation from mechanical ventilator and that has been used by the patient this morning noted mild tachycardia. The patient denies symptoms of chest pain or any hemoptysis. He does not report any symptoms of cough as well. He was continued on intravenous antibiotics. OBJECTIVE: VITAL SIGNS: For the patient which were recorded showed the temperature noted as 100.1 degrees Fahrenheit, yesterday to 99.3 degree Fahrenheit, respiratory rate 16-20. Heart rate of 114-111, sinus tachycardia, blood pressure 123/74-129/76. HEENT: Examination shows head was atraumatic. Eyes nonicterus. NECK: Supple. The patient currently liberated from mechanical ventilator. The NG tube in place. CARDIOVASCULAR: S1, S2 is audible. LUNGS: The patient was noted without any crackles. There was no wheezing. ABDOMEN: Status post surgery. Moderate obesity. Nontender. EXTREMITIES: The patient noted without any acute edema. VISIBLE SKIN: No lesions or rashes. LABORATORY DATA: The arterial blood gas on 11/02/2017 for the patient on the CPAP prior to liberation of mechanical ventilator, pH of 7.38, pCO2 of 43, pO2 108. CBC of this morning WBC count elevated at 18.7, hemoglobin 13.7, hematocrit 42.7, platelet count of 192,000. The CMP this morning, BUN 5, creatinine was normal, glucose 171. Prealbumin 13. IMPRESSION: 1. The patient was being currently noted with status post surgery with reversal of colostomy, extraction of the mesh from the abdomen with past hernia repair. 2. Acute postoperative respiratory insufficiency. The patient is status post liberation from mechanical ventilation. Respiratory insufficiency been noted from noncardiac surgery. 3. The patient with history of bronchial asthma. 4. Obstructive sleep apnea disorder by history as well and acute chronic anticoagulation of the patient with a history of factor V Leiden deficiency, hypercoagulability and deep venous thrombosis. PLAN OF TREATMENT: The patient has been ordered the TPN, Dr. Torres for the nutrition support. The NG tube remains in place. Continue bronchodilator use as BiPAP as ordered for the patient. The patient was also ordered the beta-dax by Dr. Torres. Continue previous other home medication. Monitor respiratory status. Usual care. Antibiotic per assessment of Dr. Torres. [place], [place] PROGRESS NOTE NAME: CALRE KUMARI Ivan UNIT #: [id number] ROOM: [facility] DOCTOR: MATIAS DODSON MD BIRTHDATE: [birth year] MATIAS FERGUSON MD CM:PNTRANS [phone] MATIAS VILCHIS MD 11/04/17 0001 interface
--- NOTE | ~2017-10-29 | O ---
[place], [place] OPERATIVE NOTE NAME: CLARE KUMARI [facility] #: [id number] UNIT #: [id number] [facility] DOCTOR: KYMBERLY KUMAR,SHY CAMPBELL BIRTHDATE: [birth year] DOS: 11/01/2017 PREOPERATIVE DIAGNOSES: 1. Previous carcinoid tumor of the sigmoid. 2. History of sigmoid polyps. 3. Status post sigmoid colectomy and end colostomy (Cristopher's procedure). POSTOPERATIVE DIAGNOSES: 1. Previous carcinoid tumor of the sigmoid. 2. History of sigmoid polyps. 3. Status post sigmoid colectomy and end colostomy (Cristopher's procedure). 4. Parastomal hernia. 5. 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 PROCEDURES: Diagnostic laparoscopy, takedown colostomy, lysis of adhesions, resection of small bowel fistula and explantation of mesh (en bloc), small bowel resection with primary anastomosis, end colorectal anastomosis with 33 mm EEA stapler and placement of wound VAC. SURGEON: Shy Traylor MD MURAL PAINTER: JUANA BarrosoY1 and MS Tomas4. ANESTHESIA: General endotracheal and local 15 mL of 0.5% Marcaine plain. INDICATIONS: This is an unfortunate 52-year-old gentleman who has had a colostomy for a few years after sigmoid resection in another institution for the previously mentioned carcinoid and history of polyps. He had been reportedly told at that institution that he could "never have his colostomy reversed." He was found on evaluation at the wound clinic at [facility] to have a functioning colostomy in the left lower quadrant and had a small persistent granuloma in his old midline incision from his prior surgery. He was treated for this in the wound clinic with inability to get this small wound to heal in spite of measures. He had evidently a prior small umbilical hernia repair done several years prior and the timing of this with the colon resection is uncertain. During evaluation of his abdominal wound, he had CT scan which showed loop of small bowel in proximity to the aforementioned wound, but no obvious fistula tract was found, nor there were any specific changes consistent with inflammation or abscess at the site. Having been asked by the patient as to whether or not he could have reversal of his colostomy, given his age and other comorbidities being notwithstanding, he had endoscopic evaluation, which showed adequate proximal colon above the colostomy and a Cristopher's pouch of approximately 25 cm length, which was unremarkable. He had further outpatient workup of his medical comorbidities, which were optimized as well as pulmonary status per Dr. Kaur who has seen him for some time. With his done, the patient was taken to the operating room for reversal of his colostomy with discussion with him preoperatively that should this small wound clean out driller to be a fistula, which was less likely from his preoperative workup and essentially no output from this, just a persistent small wound, that could be dealt with. It was felt preoperatively this was more likely a loop of bowel which was just adherent from [place], [place] OPERATIVE NOTE NAME: CLARE KUMARI UNIT #: [id number] ROOM: [facility] DOCTOR: SHY TRAYLOR MD BIRTHDATE: [birth year] adhesive disease and likely a stitch granuloma or something from prior closure of his prior abdominal wound, as he has never had any succus or enteral content. Then, I visualized draining from this abdominal wound site over the last several months. However, intraoperatively, he was found in fact to have a small bowel fistula, which was with obvious chronic contamination of the umbilical mesh prosthesis, which was removed en bloc as well. He was taken to the operating room for reversal of colostomy with the risks and benefits and possible complications of this of the procedures including the aforementioned issues with possible fistula being discussed with the patient at length in the wound center preoperatively. Given his obstructive lung disease and history of asthma and bronchitis as well as a prolonged intubation after his original surgery, we had decided preoperatively on consultation with Pulmonary Service and medical providers involved that we would leave him intubated perioperatively overnight and then extubate him the next day as appropriate to assure no postoperative issues as he has had perioperatively with his last procedure at another institution. He did have his anticoagulation for his factor V (Leiden) deficiency held 6 hours prior to the procedure and is on just Lovenox prophylaxis, with this plan for a few days postoperatively and then to resume his anticoagulation with Eliquis for his heterozygous Leiden factor deficiency. Risks, benefits, possible complications have been discussed at length and he agreed to informed consent. DESCRIPTION OF PROCEDURE: The patient was brought to the operating suite and placed on table in supine position. Adequate conscious sedation was obtained by the anesthesia staff. He was intubated without difficulty. Endotracheal tube was placed, secured. He was then positioned on the table and prepped and draped in sterile fashion including placement of Dio stirrups, Jen straps and chest wrap to secure him to the operating table with adequate padding and positioning to avoid any neuropathy, brachial plexus strain or compression injuries due to his body habitus and possible length of the procedure, as well as need to position him laparoscopically in sometimes exaggerated both Trendelenburg and reverse Trendelenburg as well as for primary anastomosis with transrectal EEA stapling device. Once this was done, which was accomplished in the usual fashion, he was prepped and draped and attention directed to his colostomy site. This was initially closed with a pursestring suture of 3-0 Prolene to avoid any discharge of fecal content or mucus during the procedure, having already given the patient a mechanical bowel prep preoperatively and having irrigated out the distal Cristopher's segment endoscopically a few months earlier to remove all of the fecal material that was left behind after his first procedure at another institution. With this done through careful dissection, circum colostomy incision was made in the skin with cautery and this was carried through a fairly protracted dissection, freeing the colostomy in its entirety and reducing it back into the abdomen. The patient was found to have a fairly large parastomal hernia with multiple pockets of omentum and a few loops of small bowel, which were herniated up into the parastomal site that were freed with combination of cautery and sharp dissection until the entire ring of the colostomy opening could be elevated and entry into the peritoneal cavity was thus achieved. Once this was done, initial attempt was made to create pneumoperitoneum with placement of a Gelport hand assisted endoscopy port with a laparoscopic port within to close the opening of the old ostomy site and seal [place], [place] OPERATIVE NOTE [facility]: [id number] UNIT #: [id number] ROOM: [facility] DOCTOR: SHY TRAYLOR MD BIRTHDATE: [birth year] this for adequate pneumoperitoneum. This could not be achieved adequately after several different maneuvers including placement of iujgnq-vy-swgon sutures in the fascia to make the opening smaller and different manipulations of the Gelport device. The leak was such that we could not achieve a pneumoperitoneum of higher than 6-7 mmHg pressure in the abdomen and adequate pneumoperitoneum for visualization could not be achieved, though we did manage to get a separate 5 mm subxiphoid port placed under direct vision at that lower pressure. Once that was achieved, decision was made to close the colostomy site at the fascial level, which was done with continuous 0 looped PDS to good effect. At this point, we were able to then achieve pneumoperitoneum of 12-14 mmHg and with a 30-degree laparoscope inserted, diagnostic laparoscopy ensued which showed marked adhesions. The patient had placement then of an additional left lower quadrant 5 mm port site under direct vision and a second additional left mid quadrant port site next to this under direct visualization. Lysis of adhesions then ensued laparoscopically for roughly an hour, freeing omentum and small bowel from the patient's lateral abdominal wall until the only loop left was the aforementioned loop seen on CAT scan underneath the patient's incision. This was dissected out with extraperitoneal dissection and on opening this the patient was found after a fairly protracted dissection to have the loop of bowel freed partially from the anterior abdominal wall, but opening this into what appears to be an abscess cavity around the patient's old umbilical hernia repair. He was seen to have what appears to be a Ventralex or other brand of a composite type mesh prosthesis made of what appears to be polypropylene mesh and PTFE. This was clearly stained with greenish tint and what appeared to be succuss, though there was no spillage present and appears to be a chronic process. There were some inflammatory changes present around this which again showed more edema and no gross purulence, but clearly appeared to be chronic. With this in mind, at this point due to need to explant this mass, the attention was directed to the abdominal wall and the patient's old incision was entered superiorly and inferiorly to perform relatively small laparotomy incision. Once this was freed circumferentially with the mesh and the bowel still adherent, the area of the mesh, the skin and including the small fistula, now known to be fistula tract that was present were resected en bloc and freed from the abdominal wall. Attention was then directed to the bowel and two small windows were made in the mesentery of the small bowel and a small section of the small intestine was then transected with GIANNA linear cutter staplers to resect the mesh and the small bowel fistula en bloc. It was handed off and placed in formalin after documenting this photographically as well as placing a Prolene stitch to sahara the skin injury of the fistula tract to oriented for the pathology department. This was handed off, the area irrigated and suctioned dry. The areas were policed for bleeding and the clamps on the small bowel mesentery were ligated with 3-0 Vicryl. A functional end-to-end anatomic, [id number] anastomosis was then performed in the usual fashion with a regular 75 mm linear cutter and a 60 mm TA everting stapler to close the enterostomy and reconstitute the continuity of the small bowel. Vicryl sutures were placed at the angle of sorrow and the staple line was imbricated with Lembert sutures of 3-0 Vicryl and the mesenteric defect closed with 3-0 Vicryl as well and this was dropped back into the abdomen. The attention was directed to further lysis of adhesions and Bookwalter retractor was placed intraoperatively to assist with this. Once all the small bowel had been freed from the pelvis, roofer assistant went to the foot [place], [place] OPERATIVE NOTE NAME: CLARE KUMARI UNIT #: [id number] ROOM: [facility] DOCTOR: SHY TRAYLOR MD BIRTHDATE: [birth year] the bed and with the patient already in lithotomy position, ____ lubricant passed to help locate the Cristopher's pouch of the rectum, which was reperitonealized. The peritoneum was opened carefully and stump mobilized somewhat out of the previously scarred sacral hollow to adequately identify this for end-to-end anastomosis. The site of the colostomy was then opened once this had been achieved and having selected with the size of 33 mm EEA stapler, the anvil was placed in the proximal colon and secured with a pursestring of 3-0 Prolene. This was then inspected and seemed to be adequate. The 32 mm stapling device was then introduced through the rectum by the roofer assistant at the foot of the [facility] and the stapling device, brought out through just posterior to the previous staple line of the Cristopher's pouch transection from his first operation under direct visualization. This was then connected to the anvil device, brought together in the usual fashion and then fired to recreate intestinal (colorectal) continuity with the 33 mm EEA stapler. It was tested with air test, insufflating air through the anal opening with bulb syringe with saline irrigation in the pelvis to look for any leak and none was found as well as good under direct vision. With this done, attention was directed to closure of the abdomen. A drain was brought out through the lowest of the left-sided laparoscopic ports using a 15-Japanese round drain and securing this to the skin edge with 3-0 silk suture. The attention was directed to the old colostomy site, which was inspected and seemed to have adequate fascial closure from previously. A decision had been made already to place wound VAC to this site due to the chronic contamination or having a colostomy. The attention was directed to the fascia of the midline incision. This was closed en devan with looped 0 PDS suture from the superior and inferior corners, meeting in the midline. This did not appear to be under tension and in spite of the fact that the small amount of the fascia was excised, it was adequate for closure. There was some edema and inflammatory changes present from the chronically infected mesh in retrospect, but this was not felt to be prohibitive of primary closure of the abdominal wall. This was performed and once adequate, attention was directed to this, wound was irrigated once more and suctioned dry. In the course prior to closure, the abdominal cavity was irrigated and suctioned dry copiously including running the small bowel from ligament of Treitz down to the ileocecal valve and inspecting the colon anastomosis once more as well as the small bowel anastomosis. A drain was placed on bulb suction. The patient's remaining 2 laparoscopic trocar sites were closed with 5-0 Monocryl and ____. A wound VAC with black sponge was then placed to both the midline incisions to the subcutaneous tissue as well as to the colostomy site using a foam bridge to allow adequate suction to be placed on both wounds with the same wound VAC pump, which was done and placed on 125 mmHg suction with moderate intensity. With this done, the procedure was complete. The patient was transported to be recovered in the ICU while still intubated, in satisfactory condition with all sponge, needle and instrument counts correct at the end of the procedure. He received antibiotic prophylaxis preoperatively and will be left on antibiotics postoperatively given the fistula that was found as well as for prophylaxis. He received his Lovenox perioperatively. All sponge, needle and instrument counts were correct at the end of the procedure. [place], [place] OPERATIVE NOTE NAME: CLARE KUMARI UNIT #: [id number] ROOM: [facility] DOCTOR: KYMBERLY KUMAR,SHY CAMPBELL BIRTHDATE: [birth year] SHY TRAYLOR MD CM:OPRECORD:OPERATIVE NOTE [id number] MATIAS VILCHIS MD and SPARKLE TRAYLOR MD 11/02/17 4710 interface
--- NOTE | ~2017-10-29 | PR ---
[place], [place] PROGRESS NOTE NAME: CLARE KUMARI [facility] #: [id number] UNIT #: [id number] ROOM: 526 DOCTOR: PHYLLIS VILCHIS MD,MATIAS BIRTHDATE: [birth year] DOS: 11/09/2017 SUBJECTIVE: He has been noted comfortable at this time. There were no symptoms of cough, sputum expectoration, and chest pain reported. He was still getting TPN. The patient has been assessed for possible starting the oral diet. He denies symptoms of abdominal pain. Wound VAC were noted in place. OBJECTIVE: VITAL SIGNS: Normal temperature, respiratory rate 18, heart rate 86. The blood pressure patient noted as 142/76. HEENT: Examination shows no acute change. NECK: Supple. CARDIOVASCULAR: S1, S2 was audible. LUNGS: The patient was noted without any wheezing or crackles at the present time. ABDOMEN: Soft, nontender. EXTREMITIES: Without any acute edema. LABORATORY DATA: The CBC today, WBC count was 12,000. BMP this morning, glucose 190, BUN and creatinine was normal. IMPRESSION: Stable, respiratory status was noted at this time, status post surgery of patient's abdomen, reversal colostomy, small bowel fistula repair for this patient extraction of the mesh from the abdomen from past, hernia repair. The patient was noted with peritonitis. The patient with gram-positive and gram-negative organisms. PLAN OF THERAPY: No changes in the plan of therapy at this time. Continuation of other previous treatment plan as previously. Usual care. All other supportive plan of treatment. The patient has been currently planned for transfer to the long-term acute care facility for further continued care. MATIAS FERGUSON MD CM:PNTRANS [id number] MATIAS VILCHIS MD 11/09/172033 interface
--- NOTE | ~2017-10-29 | PR ---
[place], [place] PROGRESS NOTE NAME: CLARE KUMARI UNIT #: [id number] ROOM: [facility] DOCTOR: JESSICA MOYER MD BIRTHDATE: [birth year] DOS: SUBJECTIVE: The patient is resting. He was actually in deep sleep when I walked in, but able to arouse and answer questions. OBJECTIVE: VITAL SIGNS: Graphic trend shows blood pressure 113/58, pulse of 92, respirations 18, temperature 98.4 with T-max of 100.9. LUNGS: Diminished breath sounds. No wheezes heard this morning. HEART: Regular. ABDOMEN: Obese. Bowel sounds hypoactive. EXTREMITIES: Without any edema. LABORATORY DATA: There is no basic metabolic panel ordered this morning. WBC count is 13.1, hemoglobin 11.5, platelets were 238. ASSESSMENT AND PLAN: 1. A patient who was admitted for reversal of colostomy with the wound VAC application. The patient is going for more surgery this morning. 2. Continued fever. Maximized with broad spectrum antibiotics. Repeat cultures were ordered and pending. White cell count has improved, but it has come down to 13,000, but is staying there. 3. Nutrition through TPN. 4. History of drug dependency. I would avoid narcotics if at all possible. 5. Sleep apnea, on CPAP. JESSICA MOYER MD CM:PNTRANS [id number] JESSICA MOYER MD 11/05/17 0921 interface
--- NOTE | ~2017-10-29 | PR ---
[place], [place] PROGRESS NOTE NAME: CLARE KUMARI UNIT #: [id number] ROOM: [facility] DOCTOR: PHYLLIS VILCHIS MD,MATIAS BIRTHDATE: [birth year] DOS: 11/05/2017 PULMONARY PROGRESS NOTE SUBJECTIVE: The patient was noted comfortable at this time, getting TPN. The temperature curve is noted with low-grade fever at this time. He has been noted with mild cough. There was no sputum expectoration or any abdominal pain. OBJECTIVE: VITAL SIGNS: Temperature 100.9 degrees, normal temperature, respiratory rate 16-18, heart rate 92, blood pressure 113/58. The pulse oxygen saturation on 2 liters nasal cannula was 96% saturation. HEENT: Showed no acute change. NECK: Supple. CARDIOVASCULAR: S1, S2 audible. LUNGS: The patient was noted without any wheezing or crackles. ABDOMEN: Soft, status post surgery with moderate obesity. EXTREMITIES: Without any acute edema. IMPRESSION: 1. The patient with stable respiratory status was noted at this time, status post liberation from mechanical ventilation for acute respiratory insufficiency, post-abdominal surgery. 2. The patient with history of obstructive sleep apnea disorder. 3. Bronchial asthma. PLAN OF MANAGEMENT: No changes in the plan from the pulmonary standpoint. Continue TPN nutritional support and other medical management per Dr. Torres. Continue use of the BiPAP. Other supportive plan of therapy and care plan. MATIAS FERGUSON MD CM:PNTRANS [id number] MATIAS VILCHIS MD 11/05/17 1143 interface
--- NOTE | ~2017-10-29 | CON ---
[place], [place] REPORT OF CONSULTATION [id number] UNIT #: [id number] ROOM: 529 DOCTOR: SPARKLE CONTRERAS MD BIRTHDATE: [birth year] DOS: 10/30/2017 HISTORY OF PRESENT ILLNESS: The patient is a 52-year-old gentleman with a past medical history of: 1. Chronic obstructive pulmonary disease. 2. Morbid obesity. 3. Type 2 diabetes mellitus. 4. Corticosteroid-induced hyperglycemia. 5. Mixed hyperlipidemia. 6. Chronic primary insomnia. 7. Factor V Leiden mutation and hypercoagulopathy. 8. Bipolar disorder. 9. Major depression, recurrent, moderate. 10. Chronic pain syndrome. 11. Chronic primary insomnia. 12. Benign essential hypertension. 13. Chronic stasis dermatitis involving the skin of both legs. 14. History of colostomy after surgery for colon cancer. The patient is presently asymptomatic and admitted under Dr. Torres for reversal of colostomy. The patient is asymptomatic and doing well. No shortness of breath, no chest pain, no GI or urinary symptoms. The patient has been taken off his anticoagulation and started on IV heparin, so it can be reversed quickly for surgery since the patient has a known hypercoagulopathy. The patient is not giving any history of any adverse reaction to anesthesia in the past. No bleeding disorder. No chest pain, no shortness of breath, no GI or urinary symptoms. The patient is not on any other anticoagulants. PRESENT MEDICATIONS: Trazodone, Tradjenta, Daliresp, propranolol, citalopram, Bumex, omeprazole, glipizide, Brintellix inhalers, Latuda, gabapentin, Lipitor, meclizine, insulin, IV heparin, cefoxitin, clonazepam. ALLERGIES: Known allergies to DARVOCET, METFORMIN, NUBAIN, QUINOLONES, RITUXAN. PHYSICAL EXAMINATION: GENERAL: Alert and oriented x 3, morbidly obese. Obesity, generalized weakness. Colostomy in place and chronic pigmentary changes and stasis dermatitis in both legs. HEENT AND NECK: Extraocular movements are intact. Sclerae are anicteric. Oral mucosa is moist and clean. No obvious facial weakness. Neck is supple without any lymphadenopathy. No thyromegaly. No JVD. No carotid arterial bruits. LUNGS: Clear to auscultation. No wheezing. No rhonchi. CARDIOVASCULAR SYSTEM: Heart rate is regular in rate and rhythm. S1 and S2 normally audible. No significant murmur or any other abnormal cardiac sounds. ABDOMEN: Soft, nontender. No obvious organomegaly. Bowel sounds are present. No obvious herniation. EXTREMITIES: Without significant cyanosis or edema. Warm to touch. CENTRAL NERVOUS SYSTEM: Alert and oriented x 3. Cranial nerves II-XII are intact. Speech is normal. The patient is able to move all extremities. Normal muscle strength. Deep tendon reflexes are equal on both sides. Plantars were [place], [place] REPORT OF CONSULTATION NAME: CLARE KUMARI UNIT #: [id number] ROOM: 529 DOCTOR: SPARKLE CONTRERAS MD BIRTHDATE: [birth year] downgoing. LABORATORY DATA: PTT at 71.5. Chest x-ray showing no acute abnormality. Normal serum electrolytes except for hypokalemia with potassium of 3.2. White cell count 11,500, normal hemoglobin and platelets. Urine cultures were negative. IMPRESSION: The patient going for reversal of colostomy by Dr. Torres. He is stable and asymptomatic and off anticoagulation and being treated with IV heparin, which will be reversed a few hours before surgery. The patient has no history of adverse reaction to anesthesia in the past and he is asymptomatic with no signs of infection and no signs of heart failure. There is no complaints of chest pain. Chest x-ray is normal and all lab work was normal except for low potassium. 1. Hypokalemia, to be treated with an extra dose of potassium and potassium level will be repeated tomorrow. 2. Type 2 diabetes mellitus with reasonably controlled blood sugars. Plan to continue glipizide and Tradjenta. The patient also on insulin sliding scale. 3. Mixed hyperlipidemia treated with Lipitor, which has been continued. 4. Gastroesophageal reflux disease esophagitis, asymptomatic with omeprazole. 5. Major depression, recurrent, moderate, treated and controlled with citalopram. 6. Benign essential hypertension with controlled blood pressures with treatment. 7. Chronic primary insomnia, treated with trazodone, which has been continued. SPARKLE CONTRERAS MD CM:CONSTR:REPORT OF CONSULTATION 1727 10/30/172055 interface
--- NOTE | ~2017-10-29 | PR ---
[place], [place] PROGRESS NOTE NAME: CLARE KUMARI [facility] #: [id number] UNIT #: [id number] ROOM: 526 DOCTOR: SPARKLE CONTRERAS MD BIRTHDATE: [birth year] DOS: 11/08/2017 SUBJECTIVE: The patient is feeling about the same, some pain at the surgical site in his abdomen and he is still receiving hyperalimentation and he has been kept n.p.o. PHYSICAL EXAMINATION: VITAL SIGNS: Blood pressure 140/86, heart rate 89 beats per minute, breathing 18 times per minute, temperature 98 degrees Fahrenheit. GENERAL APPEARANCE: The patient is alert and oriented x 3, in no visible distress, except for obesity. HEENT AND NECK: Exam within normal limits. CARDIOVASCULAR SYSTEM: Heart rate is regular in rate and rhythm. S1 and S2 normally audible. LUNGS: Clear to auscultation. ABDOMEN: The patient is starting to have bowel sounds now and the wound VAC in place. EXTREMITIES: Without significant cyanosis or edema. IMPRESSION: 1. The patient is status post reversal of colostomy, also resection of adhesions and small bowel fistula with small bowel resection. Overall improving. His bowel sounds are present now and the patient is being started on diet by Dr. Torres. 2. For nutrition, the patient remains on Hyperal. 3. Centrilobular emphysema. The patient remains on bronchodilators, breathing normally. 4. Coagulopathy with factor V Leiden deficiency. The patient is anticoagulated with Lovenox. 5. Previous history of deep venous thrombosis, asymptomatic. 6. Mixed hyperlipidemia, treated with Lipitor. Wound cultures growing vancomycin-resistant Enterococcus, which is being treated with daptomycin. SPARKLE CONTRERAS MD CM:PNTRANS [phone] [id number] SPARKLE CONTRERAS MD 11/08/172222 interface
--- NOTE | ~2017-10-29 | PR ---
[place], [place] PROGRESS NOTE [id number] #: [id number] ROOM: [facility] DOCTOR: JESSICA MOYER MD BIRTHDATE: [birth year] DOS: 11/04/2017 SUBJECTIVE: The patient is in deep sleep. We did wake up and said he feels okay, then went back to sleep on the BiPAP. OBJECTIVE: VITAL SIGNS: Graphic trend shows a pressure 101/50, pulse of 88, respirations 13, temperature 97.8 with a T-max of 101.1. LUNGS: Diminished breath sounds. HEART: Regular. ABDOMEN: Obese, soft. Wound VAC in place. CELESTINE drain in place. EXTREMITIES: Without any edema. LABORATORY DATA: Blood sugar 201 this morning: WBC count is 13.9, hemoglobin 11.0, hematocrit 34.5, platelets 197. Liver enzymes were within normal limits. ASSESSMENT AND PLAN: 1. The patient who underwent reversal of colostomy and has a wound VAC, is planning for ____ surgery tomorrow. 2. Low-grade fever with elevated white cell count, the count has come down slightly. Continue antibiotics. So far, cultures are negative. 3. Chronic respiratory failure from sleep apnea. He uses a BiPAP at night. 4. History of drug dependency issues. Would avoid [employer] pump. I will try p.r.n. Dilaudid. Discussed with nursing staff. TPN to be continued. IV fluids will be discontinued since he is already on TPN. 5. The patient with history of blood dyscrasia, on Lovenox injections. Repeat cultures. We will add low-dose vancomycin because of continued fever and elevated white cell count. JESSICA MOYER MD CM:PNTRANS [id number] JESSICA MOYER MD 11/04/17 3731 interface
[2017-10-29 08:00] VITALS: BP 128/80
[2017-10-29 08:20] VITALS: BP 128/80
[2017-10-29] MEDS ORDERED: NEURONTIN300 MG PO (09:27)
[2017-10-29] MEDS ORDERED: LEVEMIR100 UNIT/1 SC (09:28)
[2017-10-29] MEDS ORDERED: NOVOLOG10 ML IV (09:30)
[2017-10-29 09:42] LABS: BASO # 0.1 10*3/uL (0.0-0.1); BASO % 0.6 % (0.0-1.0); EOS # 0.2 10*3/uL (0.0-0.4); EOS % 1.3 % (1.0-4.0); HEMATOCRIT 44.4 % (42.0-52.0); HEMOGLOBIN 14.7 g/dl (14.0-18.0); LYMPH # 3.7 10*3/uL (1.3-4.4); LYMPH % 32.6 % (27.0-41.0); MEAN CELL VOLUME 81.5 fl (80.0-94.0); MEAN CORPUSCULAR HGB CONC 33.1 g/dl (33.0-37.0); MEAN PLATELET VOLUME 9.9 fl (9.6-12.3); MONO # 1.1 10*3/uL (0.1-1.0); MONO % 9.3 % (3.0-9.0); NEUT # 6.4 10*3/uL (2.3-7.9); NEUT % 55.7 % (47.0-73.0); PLATELET COUNT AUTOMATED 271 10*3/uL (130-400); RED BLOOD COUNT 5.45 10*6/uL (4.50-5.90); RED CELL DISTRI WIDTH 14.3 % (0-14.5); WHITE BLOOD COUNT 11.5 10*3/uL (4.8-10.8)
[2017-10-29 10:02] LABS: ALBUMIN 3.7 gm/dl (3.1-4.5); ALKALINE PHOSPHATASE 145 U/L (45-117); BUN 11 mg/dl (7-24); CHLORIDE 98 mmol/L (98-107); CREATININE 1.08 mg/dL (0.70-1.30); POTASSIUM 3.2 mmol/L (3.5-5.1); SGOT/AST 12 IU/L (3-35); SGPT/ALT 26 U/L (12-78); SODIUM 137 mmol/L (136-145); TOTAL PROTEIN 7.9 gm/dL (6.4-8.2)
[2017-10-29 12:00] VITALS: BP 131/70
[2017-10-29 16:00] VITALS: BP 111/63; BP 114/60
[2017-10-30] VITALS: BP 110/72
[2017-10-30 08:00] VITALS: BP 132/75
[2017-10-30 12:00] VITALS: BP 132/66
[2017-10-30 16:20] VITALS: BP 142/41
[2017-10-30 16:21] VITALS: BP 108/61
[2017-10-31 00:06] VITALS: BP 110/64
[2017-10-31 05:44] LABS: BUN 9 mg/dl (7-24); CHLORIDE 102 mmol/L (98-107); CREATININE 1.17 mg/dL (0.70-1.30); POTASSIUM 4.1 mmol/L (3.5-5.1); SODIUM 141 mmol/L (136-145)
[2017-10-31 08:00] VITALS: BP 114/64
[2017-10-31 12:00] VITALS: BP 106/70
[2017-10-31 16:00] VITALS: BP 116/68
[2017-10-31 20:00] VITALS: BP 120/71
[2017-11-01] VITALS (16 sets, daily range): BP systolic 99–131; BP diastolic 54–80
[2017-11-01 21:20] LABS: ABG BASE EXCESS 0.2 mmol/L (-2.0-2.0); ABG HCO3 24.5 mmol/l (22-26); ABG O2 SATURATION 95.7 % (95-97); ARTERIAL BLOOD GAS PCO2 40.4 mmHg (35-45); ARTERIAL BLOOD GAS PH 7.399 (7.35-7.45); ARTERIAL BLOOD GAS PO2 79.5 mmHg (80-90)
[2017-11-02] VITALS (22 sets, daily range): BP systolic 112–130; BP diastolic 46–76
[2017-11-02 04:59] LABS: BASO % 0.2 % (0.0-1.0); HEMATOCRIT 44.7 % (42.0-52.0); HEMOGLOBIN 14.4 g/dl (14.0-18.0); LYMPH # 2.2 10*3/uL (1.3-4.4); LYMPH % 9.7 % (27.0-41.0); MEAN CELL VOLUME 82.6 fl (80.0-94.0); MEAN CORPUSCULAR HGB 26.6 pg (27.0-31.0); MEAN CORPUSCULAR HGB CONC 32.2 g/dl (33.0-37.0); MONO # 1.3 10*3/uL (0.1-1.0); MONO % 5.6 % (3.0-9.0); NEUT # 18.9 10*3/uL (2.3-7.9); NEUT % 83.9 % (47.0-73.0); PLATELET COUNT AUTOMATED 249 10*3/uL (130-400); RED BLOOD COUNT 5.41 10*6/uL (4.50-5.90); RED CELL DISTRI WIDTH 14.6 % (0-14.5); WHITE BLOOD COUNT 22.5 10*3/uL (4.8-10.8)
[2017-11-02 05:11] LABS: CREATININE 0.99 mg/dL (0.70-1.30)
[2017-11-02 08:01] LABS: ABG BASE EXCESS 0.3 mmol/L (-2.0-2.0); ABG HCO3 24.2 mmol/l (22-26); ABG O2 SATURATION 99.4 % (95-97); ARTERIAL BLOOD GAS PCO2 38.6 mmHg (35-45); ARTERIAL BLOOD GAS PH 7.414 (7.35-7.45)
[2017-11-02 11:57] LABS: ABG BASE EXCESS 1.1 mmol/L (-2.0-2.0); ABG HCO3 25.5 mmol/l (22-26); ABG O2 SATURATION 98.1 % (95-97); ARTERIAL BLOOD GAS PCO2 43.8 mmHg (35-45); ARTERIAL BLOOD GAS PH 7.388 (7.35-7.45)
[2017-11-03] VITALS: BP 126/77
[2017-11-03 04:00] VITALS: BP 123/74
[2017-11-03 06:06] LABS: ALBUMIN 2.6 gm/dl (3.1-4.5); ALKALINE PHOSPHATASE 93 U/L (45-117); BUN 5 mg/dl (7-24); CHLORIDE 104 mmol/L (98-107); SGOT/AST 18 IU/L (3-35); SGPT/ALT 18 U/L (12-78); SODIUM 139 mmol/L (136-145); TOTAL PROTEIN 6.5 gm/dL (6.4-8.2)
[2017-11-03 06:50] LABS: BASO # 0.1 10*3/uL (0.0-0.1); BASO % 0.3 % (0.0-1.0); EOS # 0.2 10*3/uL (0.0-0.4); HEMATOCRIT 42.7 % (42.0-52.0); HEMOGLOBIN 13.4 g/dl (14.0-18.0); LYMPH # 2.5 10*3/uL (1.3-4.4); LYMPH % 13.6 % (27.0-41.0); MEAN CORPUSCULAR HGB CONC 31.4 g/dl (33.0-37.0); MEAN PLATELET VOLUME 10.6 fl (9.6-12.3); MONO # 1.6 10*3/uL (0.1-1.0); MONO % 8.4 % (3.0-9.0); NEUT # 14.2 10*3/uL (2.3-7.9); NEUT % 76.1 % (47.0-73.0); PLATELET COUNT AUTOMATED 192 10*3/uL (130-400); RED BLOOD COUNT 4.97 10*6/uL (4.50-5.90); RED CELL DISTRI WIDTH 15.1 % (0-14.5); WHITE BLOOD COUNT 18.7 10*3/uL (4.8-10.8)
[2017-11-03 07:03] LABS: MEAN CELL VOLUME 85.9 fl (80.0-94.0)
[2017-11-03 07:39] LABS: PLATELET SUFFICIENCY NORMAL (NORMAL); TOTAL CELLS COUNTED 100 #CELLS
[2017-11-03 08:00] VITALS: BP 95/52
[2017-11-03 09:30] LABS: PREALBUMIN 13 mg/dl (20-40)
[2017-11-03 12:00] VITALS: BP 94/52
[2017-11-03 16:00] VITALS: BP 101/60
[2017-11-03 16:01] LABS: HEMATOCRIT 39.5 % (42.0-52.0); HEMOGLOBIN 12.5 g/dl (14.0-18.0); MEAN CELL VOLUME 85.5 fl (80.0-94.0); MEAN CORPUSCULAR HGB 27.1 pg (27.0-31.0); MEAN CORPUSCULAR HGB CONC 31.6 g/dl (33.0-37.0); MEAN PLATELET VOLUME 9.7 fl (9.6-12.3); PLATELET COUNT AUTOMATED 198 10*3/uL (130-400); RED BLOOD COUNT 4.62 10*6/uL (4.50-5.90); RED CELL DISTRI WIDTH 15.2 % (0-14.5)
[2017-11-03 16:16] LABS: ALBUMIN 2.3 gm/dl (3.1-4.5); BILIRUBIN, DIRECT 0.2 mg/dL (0.0-0.2); PHOSPHOROUS 2.1 mg/dL (2.5-4.9); POTASSIUM 3.9 mmol/L (3.5-5.1); TOTAL PROTEIN 6.2 gm/dL (6.4-8.2)
[2017-11-03 16:28] LABS: ATYPICAL LYMPHS 1 % (0-0); TOTAL CELLS COUNTED 100 #CELLS
[2017-11-03 16:29] LABS: PLATELET SUFFICIENCY NORMAL (NORMAL)
[2017-11-03 20:00] VITALS: BP 108/55
[2017-11-04] VITALS: BP 110/59
[2017-11-04 04:00] VITALS: BP 101/50
[2017-11-04 05:49] LABS: ALBUMIN 1.9 gm/dl (3.1-4.5); BILIRUBIN, DIRECT 0.2 mg/dL (0.0-0.2); TOTAL PROTEIN 5.7 gm/dL (6.4-8.2)
[2017-11-04 05:55] LABS: BASO # 0.1 10*3/uL (0.0-0.1); BASO % 0.4 % (0.0-1.0); EOS # 0.3 10*3/uL (0.0-0.4); EOS % 2.4 % (1.0-4.0); HEMATOCRIT 34.5 % (42.0-52.0); LYMPH # 2.5 10*3/uL (1.3-4.4); LYMPH % 17.8 % (27.0-41.0); MEAN CELL VOLUME 86.3 fl (80.0-94.0); MEAN CORPUSCULAR HGB 27.5 pg (27.0-31.0); MEAN CORPUSCULAR HGB CONC 31.9 g/dl (33.0-37.0); MEAN PLATELET VOLUME 10.5 fl (9.6-12.3); MONO # 1.1 10*3/uL (0.1-1.0); MONO % 7.7 % (3.0-9.0); NEUT # 9.9 10*3/uL (2.3-7.9); NEUT % 70.8 % (47.0-73.0); PLATELET COUNT AUTOMATED 197 10*3/uL (130-400); WHITE BLOOD COUNT 13.9 10*3/uL (4.8-10.8)
[2017-11-04 08:00] VITALS: BP 106/49
[2017-11-04 10:29] LABS: PHOSPHOROUS 2.3 mg/dL (2.5-4.9); POTASSIUM 3.6 mmol/L (3.5-5.1)
[2017-11-04 12:00] VITALS: BP 137/75
[2017-11-04 16:00] VITALS: BP 128/69
[2017-11-04 20:00] VITALS: BP 122/83
[2017-11-05] VITALS (12 sets, daily range): BP systolic 102–165; BP diastolic 58–91
[2017-11-05 04:56] LABS: BILIRUBIN, DIRECT 0.1 mg/dL (0.0-0.2); TOTAL PROTEIN 5.7 gm/dL (6.4-8.2)
[2017-11-05 06:08] LABS: BASO # 0.1 10*3/uL (0.0-0.1); BASO % 0.4 % (0.0-1.0); EOS # 0.3 10*3/uL (0.0-0.4); EOS % 2.5 % (1.0-4.0); HEMATOCRIT 35.9 % (42.0-52.0); HEMOGLOBIN 11.5 g/dl (14.0-18.0); LYMPH # 3.3 10*3/uL (1.3-4.4); LYMPH % 25.1 % (27.0-41.0); MEAN CELL VOLUME 84.7 fl (80.0-94.0); MEAN CORPUSCULAR HGB 27.1 pg (27.0-31.0); MEAN PLATELET VOLUME 10.4 fl (9.6-12.3); MONO # 1.3 10*3/uL (0.1-1.0); MONO % 9.7 % (3.0-9.0); NEUT # 8.1 10*3/uL (2.3-7.9); NEUT % 61.6 % (47.0-73.0); PLATELET COUNT AUTOMATED 238 10*3/uL (130-400); RED BLOOD COUNT 4.24 10*6/uL (4.50-5.90); WHITE BLOOD COUNT 13.1 10*3/uL (4.8-10.8)
[2017-11-05 14:20] LABS: POTASSIUM 4.7 mmol/L (3.5-5.1)
[2017-11-06 00:08] VITALS: BP 132/78
[2017-11-06 07:34] LABS: BASO % 0.1 % (0.0-1.0); EOS % 0.1 % (1.0-4.0); HEMOGLOBIN 11.7 g/dl (14.0-18.0); LYMPH # 2.6 10*3/uL (1.3-4.4); LYMPH % 17.9 % (27.0-41.0); MEAN CELL VOLUME 83.7 fl (80.0-94.0); MEAN CORPUSCULAR HGB 27.2 pg (27.0-31.0); MEAN CORPUSCULAR HGB CONC 32.5 g/dl (33.0-37.0); MEAN PLATELET VOLUME 10.1 fl (9.6-12.3); MONO # 1.2 10*3/uL (0.1-1.0); MONO % 8.4 % (3.0-9.0); NEUT # 10.4 10*3/uL (2.3-7.9); NEUT % 72.4 % (47.0-73.0); PLATELET COUNT AUTOMATED 256 10*3/uL (130-400); RED CELL DISTRI WIDTH 14.5 % (0-14.5); WHITE BLOOD COUNT 14.3 10*3/uL (4.8-10.8)
[2017-11-06 07:52] LABS: ALBUMIN 2.2 gm/dl (3.1-4.5); ALKALINE PHOSPHATASE 88 U/L (45-117); BILIRUBIN, DIRECT < 0.1 mg/dL (0.0-0.2); SGOT/AST 6 IU/L (3-35); SGPT/ALT 12 U/L (12-78); TOTAL PROTEIN 6.4 gm/dL (6.4-8.2)
[2017-11-06 08:00] VITALS: BP 104/66
[2017-11-06 08:35] LABS: PHOSPHOROUS 2.8 mg/dL (2.5-4.9); POTASSIUM 4.4 mmol/L (3.5-5.1)
[2017-11-06 12:00] VITALS: BP 110/68
[2017-11-06 16:00] VITALS: BP 131/84
[2017-11-06 20:00] VITALS: BP 125/67
[2017-11-07] VITALS: BP 129/81
[2017-11-07 06:22] LABS: BASO # 0.1 10*3/uL (0.0-0.1); BASO % 0.8 % (0.0-1.0); EOS # 0.4 10*3/uL (0.0-0.4); EOS % 3.4 % (1.0-4.0); HEMATOCRIT 35.3 % (42.0-52.0); HEMOGLOBIN 11.3 g/dl (14.0-18.0); LYMPH # 3.5 10*3/uL (1.3-4.4); LYMPH % 31.1 % (27.0-41.0); MEAN CELL VOLUME 86.1 fl (80.0-94.0); MEAN CORPUSCULAR HGB 27.6 pg (27.0-31.0); MEAN PLATELET VOLUME 10.4 fl (9.6-12.3); MONO # 0.9 10*3/uL (0.1-1.0); MONO % 8.3 % (3.0-9.0); NEUT # 6.2 10*3/uL (2.3-7.9); NEUT % 55.1 % (47.0-73.0); PLATELET COUNT AUTOMATED 264 10*3/uL (130-400); RED CELL DISTRI WIDTH 14.6 % (0-14.5); WHITE BLOOD COUNT 11.3 10*3/uL (4.8-10.8)
[2017-11-07 06:42] LABS: CREATININE 0.69 mg/dL (0.70-1.30)
[2017-11-07 08:00] VITALS: BP 100/54
[2017-11-07 10:02] LABS: BUN 13 mg/dl (7-24); CHLORIDE 102 mmol/L (98-107); CREATININE 0.73 mg/dL (0.70-1.30); POTASSIUM 3.8 mmol/L (3.5-5.1); SODIUM 137 mmol/L (136-145)
[2017-11-07 10:03] LABS: PHOSPHOROUS 3.8 mg/dL (2.5-4.9)
[2017-11-07 12:00] VITALS: BP 102/62
[2017-11-07 16:00] VITALS: BP 108/56
[2017-11-07 20:00] VITALS: BP 111/60
[2017-11-08] VITALS: BP 137/52
[2017-11-08 07:49] LABS: BASO # 0.1 10*3/uL (0.0-0.1); BASO % 0.7 % (0.0-1.0); EOS # 0.5 10*3/uL (0.0-0.4); HEMATOCRIT 37.5 % (42.0-52.0); HEMOGLOBIN 12.2 g/dl (14.0-18.0); LYMPH # 3.2 10*3/uL (1.3-4.4); LYMPH % 26.7 % (27.0-41.0); MEAN CELL VOLUME 83.1 fl (80.0-94.0); MEAN CORPUSCULAR HGB 27.1 pg (27.0-31.0); MEAN CORPUSCULAR HGB CONC 32.5 g/dl (33.0-37.0); MEAN PLATELET VOLUME 10.3 fl (9.6-12.3); MONO # 1.2 10*3/uL (0.1-1.0); MONO % 9.9 % (3.0-9.0); NEUT # 6.9 10*3/uL (2.3-7.9); NEUT % 56.7 % (47.0-73.0); PLATELET COUNT AUTOMATED 325 10*3/uL (130-400); RED BLOOD COUNT 4.51 10*6/uL (4.50-5.90); RED CELL DISTRI WIDTH 14.4 % (0-14.5); WHITE BLOOD COUNT 12.1 10*3/uL (4.8-10.8)
[2017-11-08 08:00] VITALS: BP 136/74
[2017-11-08 09:17] LABS: BUN 10 mg/dl (7-24); CHLORIDE 99 mmol/L (98-107); CREATININE 0.87 mg/dL (0.70-1.30); PHOSPHOROUS 4.3 mg/dL (2.5-4.9); POTASSIUM 3.7 mmol/L (3.5-5.1); SODIUM 137 mmol/L (136-145)
[2017-11-08 12:00] VITALS: BP 140/86
[2017-11-08 16:00] VITALS: BP 146/76
[2017-11-08 20:00] VITALS: BP 147/62
[2017-11-09] VITALS: BP 122/61
[2017-11-09 07:33] LABS: HEMOGLOBIN 12.4 g/dl (14.0-18.0); MEAN CELL VOLUME 83.9 fl (80.0-94.0); MEAN CORPUSCULAR HGB 27.4 pg (27.0-31.0); MEAN CORPUSCULAR HGB CONC 32.6 g/dl (33.0-37.0); MEAN PLATELET VOLUME 10.1 fl (9.6-12.3); PLATELET COUNT AUTOMATED 353 10*3/uL (130-400); RED BLOOD COUNT 4.53 10*6/uL (4.50-5.90); RED CELL DISTRI WIDTH 14.3 % (0-14.5); WHITE BLOOD COUNT 12.2 10*3/uL (4.8-10.8)
[2017-11-09 08:00] VITALS: BP 142/76
[2017-11-09 08:16] LABS: PLATELET SUFFICIENCY NORMAL (NORMAL); TOTAL CELLS COUNTED 100 #CELLS
[2017-11-09 08:27] LABS: ALBUMIN 2.4 gm/dl (3.1-4.5); BUN 10 mg/dl (7-24); CHLORIDE 100 mmol/L (98-107); CREATININE 0.87 mg/dL (0.70-1.30); PHOSPHOROUS 3.3 mg/dL (2.5-4.9); POTASSIUM 4.2 mmol/L (3.5-5.1); SODIUM 137 mmol/L (136-145)
[2017-11-09 11:10] LABS: ALBUMIN 2.5 gm/dl (3.1-4.5); ALKALINE PHOSPHATASE 114 U/L (45-117); BUN 10 mg/dl (7-24); CHLORIDE 100 mmol/L (98-107); CREATININE 0.75 mg/dL (0.70-1.30); POTASSIUM 4.4 mmol/L (3.5-5.1); SGOT/AST 12 IU/L (3-35); SGPT/ALT 17 U/L (12-78); SODIUM 136 mmol/L (136-145); TOTAL PROTEIN 6.9 gm/dL (6.4-8.2)
[2017-11-09] MEDS ORDERED: PERCOCET 7.5-31 EACH PO (11:48)
[2017-11-09] MEDS ORDERED: CUBICIN RF500 MG IV (11:48)
[2017-11-09 12:00] VITALS: BP 136/86
== END 2017-11-09 14:05 | DRG 907 ==
LOC: ICCU 07:57 → 5E 07:57 → ICCU 11-01 20:33 → 5E 11-05 18:24
PROVIDERS: Internal Medicine; Internal Medicine Critical Care Medicine
PROC: 0DBN0ZZ Excision of Sigmoid Colon, Open Approach (ICD-10-PCS; 2017-11-02)
PROC: 0WQF0ZZ Repair Abdominal Wall, Open Approach (ICD-10-PCS; 2017-11-02)
PROC: 0WJH4ZZ Inspection of Retroperitoneum, Percutaneous Endoscopic Approach (ICD-10-PCS; 2017-11-02)
PROC: 0DNU0ZZ Release Omentum, Open Approach (ICD-10-PCS; 2017-11-02)
PROC: 0WPF0JZ Removal of Synthetic Substitute from Abdominal Wall, Open Approach (ICD-10-PCS; 2017-11-02)
PROC: 0WBF0ZZ Excision of Abdominal Wall, Open Approach (ICD-10-PCS; 2017-11-02)
PROC: 5A09357 Assistance with Respiratory Ventilation, Less than 24 Consecutive Hours, Continuous Positive Airway Pressure (ICD-10-PCS; principal; 2017-11-03)
PROC: 5A09357 Assistance with Respiratory Ventilation, Less than 24 Consecutive Hours, Continuous Positive Airway Pressure (ICD-10-PCS; 2017-11-04)
DX: T85.79XA Infection and inflammatory reaction due to other internal prosthetic devices, implants and grafts, initial encounter (principal); K65.9 Peritonitis, unspecified; K63.2 Fistula of intestine; J96.11 Chronic respiratory failure with hypoxia; E46 Unspecified protein-calorie malnutrition; D68.51 Activated protein C resistance; J44.1 Chronic obstructive pulmonary disease with (acute) exacerbation; F33.9 Major depressive disorder, recurrent, unspecified; D3A.029 Benign carcinoid tumor of the large intestine, unspecified portion; S31.109A Unspecified open wound of abdominal wall, unspecified quadrant without penetration into peritoneal cavity, initial encounter; I50.9 Heart failure, unspecified; I11.0 Hypertensive heart disease with heart failure; G43.909 Migraine, unspecified, not intractable, without status migrainosus; E78.2 Mixed hyperlipidemia; G47.33 Obstructive sleep apnea (adult) (pediatric); E66.01 Morbid (severe) obesity due to excess calories; E11.65 Type 2 diabetes mellitus with hyperglycemia; G89.4 Chronic pain syndrome; E87.6 Hypokalemia; K21.0 Gastro-esophageal reflux disease with esophagitis; Z79.84 Long term (current) use of oral hypoglycemic drugs; Z88.0 Allergy status to penicillin; Z86.718 Personal history of other venous thrombosis and embolism; Z68.34 Body mass index [BMI] 34.0-34.9, adult; Z93.3 Colostomy status; Z79.4 Long term (current) use of insulin; F41.1 Generalized anxiety disorder; Z83.6 Family history of other diseases of the respiratory system; Z80.8 Family history of malignant neoplasm of other organs or systems; Z88.1 Allergy status to other antibiotic agents; Z88.5 Allergy status to narcotic agent

== ENCOUNTER → 2017-12-25 | Outpatient (CLI) | payer MEDICARE ==
[~2017-12-25] MED LIST changes: +CUBICIN RF500 MG IV; +LEVEMIR100 UNIT/1 SC; +NEURONTIN300 MG PO; +NOVOLOG10 ML IV; +PERCOCET 7.5-31 EACH PO
== END ==
LOC: WOUNDCARE 08:27
DX: T81.89XD Other complications of procedures, not elsewhere classified, subsequent encounter (principal); Z85.038 Personal history of other malignant neoplasm of large intestine; Z85.72 Personal history of non-Hodgkin lymphomas; E10.9 Type 1 diabetes mellitus without complications; Y83.8 Other surgical procedures as the cause of abnormal reaction of the patient, or of later complication, without mention of misadventure at the time of the procedure

== ENCOUNTER → 2018-01-03 | Outpatient (CLI) | payer OTHER ==
[~2018-01-03] MED LIST changes: +AMOXICILLIN500 M3 PO; +OXYCODONE HCL10 M1 PO
== END | disposition home or self-care (01) ==
LOC: WOUNDCARE 02:32
DX: T81.89XD Other complications of procedures, not elsewhere classified, subsequent encounter (principal); Z93.3 Colostomy status; E11.9 Type 2 diabetes mellitus without complications; Z85.030 Personal history of malignant carcinoid tumor of large intestine; Y83.8 Other surgical procedures as the cause of abnormal reaction of the patient, or of later complication, without mention of misadventure at the time of the procedure

== ENCOUNTER → 2018-01-10 | Outpatient (CLI) | payer OTHER | END | disposition home or self-care (01) | LOC: WOUNDCARE 01:17 → CT 08:00 → WOUNDCARE 08:00 | DX: T81.89XD Other complications of procedures, not elsewhere classified, subsequent encounter (principal); Z93.3 Colostomy status; E11.9 Type 2 diabetes mellitus without complications; Z85.030 Personal history of malignant carcinoid tumor of large intestine; Y83.8 Other surgical procedures as the cause of abnormal reaction of the patient, or of later complication, without mention of misadventure at the time of the procedure ==

== ENCOUNTER → 2018-01-17 | Outpatient (CLI) | payer OTHER | END | disposition home or self-care (01) | LOC: WOUNDCARE 10:32 | DX: T81.89XD Other complications of procedures, not elsewhere classified, subsequent encounter (principal); Z93.3 Colostomy status; E11.9 Type 2 diabetes mellitus without complications; Z85.030 Personal history of malignant carcinoid tumor of large intestine; Y83.8 Other surgical procedures as the cause of abnormal reaction of the patient, or of later complication, without mention of misadventure at the time of the procedure ==

== ENCOUNTER 2018-01-29 01:58 | Emergency (ER) | payer OTHER ==
[~2018-01-29] VITALS: Ht 187.9 cm; Wt 127.0 kg
[~2018-01-29 01:58] MED LIST changes: -AMOXICILLIN500 M3 PO; -OXYCODONE HCL10 M1 PO
[2018-01-29 02:34] LABS: BASO % 0.5 % (0.0-1.0); EOS # 0.2 10*3/uL (0.0-0.4); EOS % 1.8 % (1.0-4.0); HEMATOCRIT 38.2 % (42.0-52.0); HEMOGLOBIN 11.6 g/dl (14.0-18.0); LYMPH % 47.1 % (27.0-41.0); MEAN CELL VOLUME 75.6 fl (80.0-94.0); MEAN CORPUSCULAR HGB CONC 30.4 g/dl (33.0-37.0); MEAN PLATELET VOLUME 9.5 fl (9.6-12.3); MONO # 0.9 10*3/uL (0.1-1.0); MONO % 10.8 % (3.0-9.0); NEUT # 3.4 10*3/uL (2.3-7.9); NEUT % 39.4 % (47.0-73.0); PLATELET COUNT AUTOMATED 294 10*3/uL (130-400); RED BLOOD COUNT 5.05 10*6/uL (4.50-5.90); RED CELL DISTRI WIDTH 14.4 % (0-14.5); WHITE BLOOD COUNT 8.5 10*3/uL (4.8-10.8)
[2018-01-29 05:08] LABS: ALBUMIN 3.9 gm/dl (3.1-4.5); ALKALINE PHOSPHATASE 125 U/L (45-117); BUN 14 mg/dl (7-24); CHLORIDE 105 mmol/L (98-107); CREATININE 1.07 mg/dL (0.70-1.30); POTASSIUM 4.2 mmol/L (3.5-5.1); SGOT/AST 12 IU/L (3-35); SGPT/ALT 20 U/L (12-78); SODIUM 143 mmol/L (136-145); TOTAL PROTEIN 7.5 gm/dL (6.4-8.2)
[2018-01-29 06:11] LABS: BILIRUBIN 2+ (NEGATIVE); BLOOD 3+ (NEGATIVE); CLARITY TURBID (CLEAR); COLOR BROWN (YELLOW); GLUCOSE NEGATIVE (NEGATIVE); KETONE TRACE (NEGATIVE); LEUKO ESTERASE 2+ (NEGATIVE); NITRITE POSITIVE (NEGATIVE); PH 7.5 (5.0-9.0)
[2018-01-29 06:30] LABS: BACTERIA 4+; RBC TNTC rbc/hpf (0-2); WBC TNTC wbc/hpf (0-5)
[2018-01-29 08:07] VITALS: BP 127/82
== END 2018-01-29 08:16 | disposition short-term general hospital (02) ==
LOC: ED 01:58
PROVIDERS: Emergency Medicine
DX: N30.90 Cystitis, unspecified without hematuria (principal); N39.0 Urinary tract infection, site not specified; J44.9 Chronic obstructive pulmonary disease, unspecified; K21.9 Gastro-esophageal reflux disease without esophagitis; E78.5 Hyperlipidemia, unspecified; I11.0 Hypertensive heart disease with heart failure; E11.9 Type 2 diabetes mellitus without complications; E66.9 Obesity, unspecified; I50.9 Heart failure, unspecified; Z86.718 Personal history of other venous thrombosis and embolism; Z88.1 Allergy status to other antibiotic agents; Z88.6 Allergy status to analgesic agent; Z88.8 Allergy status to other drugs, medicaments and biological substances; Z79.899 Other long term (current) drug therapy; Z68.34 Body mass index [BMI] 34.0-34.9, adult

== ENCOUNTER 2018-02-13 16:34 | Inpatient (IN) | payer OTHER ==
[~2018-02-13] VITALS: Ht 187.9 cm; Wt 132.2 kg
--- NOTE | ~2018-02-13 | PR ---
[place], [place] PROGRESS NOTE NAME: CLARE KUMARI UNIT #: [id number] ROOM: 501 DOCTOR: JESSICA MOYER MD BIRTHDATE: [birth year] DOS: 02/18/2018 SUBJECTIVE: The patient has no complaints today. OBJECTIVE: VITAL SIGNS: Graphic trend shows blood pressure of 142/70, pulse of 76, respirations 14, afebrile. LUNGS: Diminished breath sounds. No wheezes, rales or rhonchi heard. HEART: Regular. ABDOMEN: Obese. EXTREMITIES: Without any edema. ASSESSMENT AND PLAN: 1. Urinary tract infection with Enterobacter and Enterococcus. Patient is on 2 antibiotics. 2. Blood culture initially drawn on the day of admission, came back showing presence of Staphylococcus epidermidis. This was done on 02/13/2018 at 1716, but the blood work drawn right before that at 1710 did not show any bacterial growth, so this most likely a contaminant. The plan is therefore to discharge him to nursing facility on IV antibiotics for the current infections that he is on, which is resistant to most p.o. medications. 3. Colovesical fistula. The patient would need surgery. His surgeon in [place] at [facility] would try to see him early next month and schedule it. JESSICA MOYER MD CM:PNTRANS [id number] JESSICA MOYER MD 02/19/18 0439 interface
--- NOTE | ~2018-02-13 | PR ---
[place], [place] PROGRESS NOTE [id number] UNIT #: [id number] ROOM: 501 DOCTOR: SPARKLE CONTRERAS MD BIRTHDATE: [birth year] DOS: 02/19/2018 SUBJECTIVE: The patient continues to feel better. He is being treated for urinary tract infection and pyelonephritis. OBJECTIVE: VITAL SIGNS: Blood pressure 103/50, heart rate 65 beats per minute, breathing 20 times per minute, temperature 98.1 degrees Fahrenheit. GENERAL APPEARANCE: The patient is alert and oriented x 3, in no visible distress. Obesity. HEENT AND NECK: Exam within normal limits. CARDIOVASCULAR SYSTEM: Heart rate is regular in rate and rhythm. S1 and S2 normally audible. LUNGS: Clear to auscultation. ABDOMEN: Soft, nontender. No obvious organomegaly. Bowel sounds are present. EXTREMITIES: Without significant cyanosis or edema. IMPRESSION: 1. The patient with colovesical fistula, which requires surgery later on. 2. Pyelonephritis and urinary infection being treated with IV vancomycin and ceftriaxone. 3. Benign essential hypertension, treated with lisinopril. He also takes propranolol. 4. Major depression, recurrent, mild, treated with citalopram. 5. Type 2 diabetes mellitus, treated with glipizide. Blood sugars are being monitored. The patient also on insulin. 6. Mixed hyperlipidemia, treated with Lipitor. SPARKLE CONTRERAS MD CM:PNTRANS [phone] SPARKLE CONTRERAS MD 02/20/18 1713 interface
--- NOTE | ~2018-02-13 | PR ---
[place], [place] PROGRESS NOTE NAME: CLARE KUMARI UNIT #: [id number] ROOM: [facility] DOCTOR: JESSICA MOYER MD BIRTHDATE: [birth year] DOS: 02/15/2018 SUBJECTIVE: The patient is doing well this morning. Does not have any new complaints. He did have increased pain in the groin and the penis and Abad catheter was removed, a large amount of stool came through after the Abad was removed. The Abad was reinserted and he is feeling much better. He does not have any new complaints this morning. His eyes are pretty red and watery and angry looking. OBJECTIVE: VITAL SIGNS: Blood pressure is 108/41, pulse of 78, respirations 20, temperature 98.1. LUNGS: Diminished breath sounds, clear. HEART: Regular. ABDOMEN: Obese. Abad catheter working well, is draining clear urine this morning. EXTREMITIES: Without any edema. LABORATORY DATA: Shows a white cell count is 8.4, hemoglobin 10.6, hematocrit 36.7, platelets 420. Urine culture shows gram-negative bacteria, no identification available and a basic is also within normal limits. ASSESSMENT AND PLAN: 1. The patient admitted with abdominal pain and lack of urine output, possibly from the colovesical fistula that he has. Since he has active stool coming through the bladder, we will call the surgeon in [facility] and discussed with them. The patient is planning to have surgery done, but it is only going to be in April, as per the patient. We will give them a call and see what they say. 2. Sepsis with gram-positive cocci in clusters, on IV vancomycin. No identification is available. 3. Await until cultures are completed, but the white cell count has normalized. He does not have any fever. 4. Conjunctivitis, add Cortisporin antibiotics. [place], [place] PROGRESS NOTE NAME: CLARE KUMARI UNIT #: [id number] ROOM: [facility] DOCTOR: JESSICA MOYER MD BIRTHDATE: [birth year] JESSICA MOYER MD CM:PNTRANS [phone] JESSICA MOYER MD 02/15/182199 interface
--- NOTE | ~2018-02-13 | PR ---
[place], [place] PROGRESS NOTE [id number] UN[facility] #: [id number] ROOM: 501 DOCTOR: JESSICA MOYER MD BIRTHDATE: [birth year] DOS: 02/16/2018 SUBJECTIVE: The patient feels good, does not have any new complaints, not had any stool in his Abad catheter. He does continue to have some discomfort in the groin and penile area. OBJECTIVE: VITAL SIGNS: Blood pressure is 137/87, pulse of 88, respirations 20, temperature 98.4. LUNGS: Clear. HEART: Regular. ABDOMEN: Obese. EXTREMITIES: Without any edema. LABORATORY DATA: Blood culture shows Staphylococcus epidermidis, which is sensitive to vancomycin. This could be a contaminant. Urine culture shows heavy Gram-negative bacteria Enterococcus faecalis and Enterobacter cloacae, which is sensitive to the vancomycin as well as the Rocephin that he is on. ASSESSMENT AND PLAN: 1. Urinary tract infection with sepsis. Again, we are repeating the blood cultures to see whether there is a contaminant. He may require a peripherally inserted central catheter line and placement to a short-term rehab for intravenous antibiotics. 2. Colovesical fistula. Discussed with surgery at [facility] yesterday. Their plan is to possibly do this surgery earlier than April, but wanted to hold off while the blood cultures were positive, so we will re-inform them and talk to them later as the cultures get better. JESSICA MOYER MD CM:PNTRANS [id number] JESSICA MOYER MD 02/17/18 0044 interface
--- NOTE | ~2018-02-13 | WRIGHTHP ---
[place], [place] PATIENT HISTORY AND PHYSICAL EXAM NAME: CLARE KUMARI [facility] #: [id number] UNIT #: [id number] ROOM: [facility] DOCTOR: JESSICA MOYER MD BIRTHDATE: [birth year] DOS: 02/13/2018 HISTORY OF PRESENT ILLNESS: The patient is 52-year-old, very well known to us. The patient had extensive surgery after reversal of colostomy for a poorly healing wound. He was seen on January 29 at [facility] for continued abdominal pain and possibility of fistula. He was told he does have a colovesical fistula, and he would need to have surgery, but they have scheduled the surgery in March. The patient had a Abad catheter placed on January 29 and was advised to leave it in. He comes in this time with complaints of abdominal pain. He denies having any chest pains or palpitations, does not have any fever or chills, does not have any nausea, any emesis. Does have very cloudy urine and no urine coming through the Abad catheter in the beginning when he arrived at the emergency room. PAST MEDICAL HISTORY: Significant for 1. History of reversal of colostomy with complications including poorly healing wound, which is now healed. 2. Colovesical fistula requiring surgery. 3. Factor V Leiden mutation. 4. Type 2 diabetes mellitus. 5. Mixed hyperlipidemia. 6. Benign hypertension. 7. COPD. 8. Chronic pain. MEDICATIONS: He is on currently are insulin, Eliquis, atorvastatin, citalopram, clonazepam, gabapentin, glipizide, lisinopril, Latuda, meclizine, omeprazole, ondansetron, oxycodone, propranolol, Daliresp, Januvia, trazodone, and insulin. SOCIAL HISTORY: Nonsmoker, does not use any alcohol. PHYSICAL EXAMINATION: GENERAL: He is awake and alert and oriented. VITAL SIGNS: Blood pressure is 107/47, pulse of 80, respirations 22, temperature 97.6, and T-max 100.1. LUNGS: Diminished breath sounds. No wheezes, rales or rhonchi heard. HEART: Regular. ABDOMEN: Obese. Wound has healed on his abdomen. Abad catheter present. EXTREMITIES: Without any edema, chronic changes of the skin from peripheral vascular disease. LABORATORY DATA: White cell count is 11.2. Comprehensive glucose 116, BUN 16, creatinine 1. Electrolytes within normal limits. CT of the abdomen and pelvis shows air in the bladder, postsurgical changes with some edema around the mesenteric fat. ASSESSMENT AND PLAN: 1. The patient presents with fever, elevated white cell count, possibly has an underlying urinary tract infection. Urine culture has been sent. IV antibiotics started. 2. Colovesical fistula with an indwelling Abad. The patient would require [place], [place] PATIENT HISTORY AND PHYSICAL EXAM NAME: [facility] [id number] UNIT #: [id number] ROOM: [facility] DOCTOR: JESSICA MOYER MD BIRTHDATE: [birth year] surgery, which is scheduled for March. 3. Chronic pain. Continue medications. 4. Type 2 diabetes mellitus, on oral antidiabetics. Blood sugars are being checked and covered. Last blood sugar is 164. JESSICA MOYER MD CM:HISPHYS:PATIENT HISTORY AND PHYSICAL EXAMINATION [id number] JESSICA MOYER MD 02/14/18 0940 interface
--- NOTE | ~2018-02-13 | PR ---
[place], [place] PROGRESS NOTE NAME: CLARE KUMARI UNIT #: [id number] ROOM: 501 DOCTOR: JESSICA MOYER MD BIRTHDATE: [birth year] DOS: 02/17/2018 SUBJECTIVE: The patient is doing okay. He had a large bowel movement this morning, was almost incontinent. He denies having any abdominal pain, nausea, emesis. PHYSICAL EXAMINATION: GENERAL: He is awake and alert and oriented, in no distress. VITAL SIGNS: Graphic trend shows that he is afebrile, blood pressure 97/50, pulse of 84, respirations 19, temperature 98.9. LUNGS: Clear. HEART: Regular. ABDOMEN: Obese. EXTREMITIES: Without any edema. ASSESSMENT AND PLAN: 1. Colovesical fistula, needs surgery. 2. Sepsis with Staphylococcus epidermidis in the blood. This could be a contaminant. Repeat blood cultures are pending. 3. Urinary tract infection with Enterobacter cloacae. The patient is on 2 antibiotics. A PICC line will be placed tomorrow and consider SNF placement for IV antibiotics. JESSICA MOYER MD CM:PNTRANS [phone] JESSICA MOYER MD 03/01/18 0914 interface
--- NOTE | ~2018-02-13 | PR ---
[place], [place] PROGRESS NOTE NAME[facility] [id number] UNIT #: [id number] ROOM: 501 DOCTOR: JESSICA MOYER MD BIRTHDATE: [birth year] DOS: 02/21/2018 SUBJECTIVE: The patient was discharged yesterday to [facility], but unfortunately [facility] refused to accept him. He feels fine, does not have any complaints. PHYSICAL EXAMINATION: VITAL SIGNS: Graphic trend shows a pressure of 197/50, pulse of 70, respirations 18, temperature 98.2. LUNGS: Clear. HEART: Regular. ABDOMEN: Obese. EXTREMITIES: Without any edema. ASSESSMENT AND PLAN: 1. Urinary tract infection with Enterobacter cloacae and Enterococcus faecalis, on IV antibiotics. He could be discharged to home on Rocephin IV once a day and Zyvox p.o. The patient stated that he was not comfortable giving IV antibiotics in the [facility] that he already has that has been accessed, so we are waiting for information from [facility] to see whether they will accept the patient. 2. Colovesical fistula, need surgery after the antibiotics are done. JESSICA MOYER MD CM:PNTRANS [phone] JESSICA MOYER MD 03/01/18 0915 interface
--- NOTE | ~2018-02-13 | PR ---
[place], [place] PROGRESS NOTE [id number] #: [id number] ROOM: 501 DOCTOR: JESSICA MOYER MD BIRTHDATE: [birth year] DOS: 02/20/2018 SUBJECTIVE: The patient is feeling fine without any complaints this morning. Lungs are clear. PHYSICAL EXAMINATION: GENERAL: He is awake and alert and oriented. VITAL SIGNS: Blood pressure is 114/64, pulse of 68, respirations 16, temperature 98.2. LUNGS: Diminished breath sounds. No wheezes, rales or rhonchi heard. HEART: Regular. ABDOMEN: Obese. EXTREMITIES: Without any edema. ASSESSMENT AND PLAN: 1. Urinary tract infection with Enterobacter cloacae as well as Enterococcus faecalis. The patient will need [facility] to [facility] today. His blood cultures initially grew Staphylococcus epidermidis, but repeat blood cultures were done and they have shown no bacterial growth, so this most likely is a contaminant. 2. Colovesical fistula, he would require surgery most likely in the next couple of weeks once the antibiotics finish. JESSICA MOYER MD CM:PNTRANS [phone] JESSICA MOYER MD 02/21/18 0128 interface
--- NOTE | ~2018-02-13 | CON ---
[place], [place] REPORT OF CONSULTATION NAME: [facility] [id number] UNIT #: [id number] ROOM: [facility] DOCTOR: CELIA ARMENTAMICHAEL BIRTHDATE: [birth year] DOS: 02/15/2018 I was called to consult the patient by Dr. Margaret Clinton. The patient's main complaint was that his eyes were hyperemic and had matted that upon waking, his eyelids were stuck shut. This was ongoing for approximately 2 weeks. He did have eye drops, but he did not have any eye drops when I saw him. Fluorescein was instilled in both eyes. Slit lamp examination found his corneas clear with no staining but they were dry. He had a 2+ hyperemia and 2+ mucus strands in both eyes. His anterior chambers were quiet and deep. He had an incipient nuclear sclerosis and posterior subcapsular cataracts in both eyes that need not be addressed at this time. His fundus examination was normal for both eyes. PRIMARY DIAGNOSIS: Viral conjunctivitis, right eye worse than the left. SECONDARY DIAGNOSIS: Dry eyes, incipient nuclear sclerosis and posterior subcapsular cataracts. Treatment was TobraDex eye drops 1 drop both eyes every 2 hours x 5 days and hot compresses as much as possible for 10 minutes for the same 5 days. If the patient was not making progress, the floor was supposed to call me. Thank you Dr. Clinton for this consult. MICHAEL YANG OD CM:CONSTR:REPORT OF CONSULTATION 1006 02/19/18 1809 interface MARGARET CLINTON MD
--- NOTE | ~2018-02-13 | DS ---
[place], [place] DISCHARGE SUMMARY NAME: CLARE KUMARI [facility] #: [id number] UNIT #: [id number] ROOM: 501 DOCTOR: JESSICA MOYER MD BIRTHDATE: [birth year] DOS: 02/20/2018 DIAGNOSES: 1. Urinary tract infection. 2. Positive blood cultures. Repeat blood cultures have come back negative after antibiotics. Urine culture showing Enterobacter cloacae and Enterococcus faecalis. 3. Colovesical fistula requiring surgery soon. 4. Factor V Leiden mutation. 5. Benign hypertension. 6. Type 2 diabetes mellitus. 7. Mixed hyperlipidemia. 8. Chronic obstructive pulmonary disease. 9. Chronic pain. MEDICATIONS ON DISCHARGE: Will be TobraDex eye drops to each eye q.i.d.; vancomycin 2.5 grams b.i.d. for 5 more days and please check vancomycin peak and trough and adjust the dosing accordingly; oxycodone 10 q. 4; Rocephin 1 gram IV daily for 7 more days, please repeat urine culture and blood cultures after the completion; Tradjenta 5 mg daily; Daliresp 500 mcg daily; propranolol 80 mg daily; omeprazole 20 b.i.d.; lisinopril 5 daily; glipizide 10 b.i.d.; Celexa 40 daily; DuoNeb q. 4; oxygen titrate; Eliquis 5 b.i.d.; gabapentin 300 t.i.d.; Klonopin 1 mg twice a day; meclizine 25 three times a day; Lantus 20 units daily; Trintellix 10 mg at bedtime; trazodone 150 at bedtime; Latuda 40 mg at bedtime; atorvastatin 10 mg daily; Zofran 8 mg q. 6 p.r.n. p.o.; and [place] 5 t.i.d. p.r.n. for moderate pain. HOSPITAL COURSE: This patient is 52 years old, comes in with complaints of lack of urine output. The patient was seen in the Emergency Room and was admitted. After admission, he was noted to have difficulty with the Abad catheter. It was irrigated but nothing came out. The Abad catheter was removed, a large amount of stool came out from his colovesical fistula. The Abad catheter was reinserted and he has not had any issues. This happened a couple of times during the stay here. Urine culture and blood cultures were sent and his condition was discussed with the surgeon. Urine and blood cultures were positive as above. Antibiotics were added. His surgeon feels that the patient may require surgery in February and not earlier than anticipated, but he will need to have repeat cultures done, which were clearer. The patient is stable and is not having any new problems, so plan is to discharge him to a custodial today for continued IV antibiotics and he needs to follow up with Dr. Gross when he is released from the custodial. The patient is not having any complaints. PHYSICAL EXAMINATION: VITAL SIGNS: Blood pressure is 92/51, pulse of 66, respirations 20, temperature 97.7. LUNGS: Clear. HEART: Regular. ABDOMEN: Obese. [place], [place] DISCHARGE SUMMARY [facility]: [id number] #: [id number] ROOM: [facility] DOCTOR: JESSICA MOYER MD BIRTHDATE: [birth year] EXTREMITIES: Without any edema. The patient was refused admission to another custodial yesterday. He has been refused by 2 different facilities, so the plan is therefore to discharge him to home on p.o. antibiotics. He has already completed more than 7 days of IV antibiotics, so he does not need to have any IV antibiotics in the future. DISCHARGE MEDICATIONS: Will be amoxicillin 500 mg 3 times a day for 7 days, doxycycline 100 b.i.d. for 7 days. JESSICA MOYER MD CM:DISCHARG [phone] JESSICA MOYER MD 02/22/18 1442 interface
[2018-02-13 16:38] VITALS: BP 110/66
[2018-02-13 17:23] LABS: BILIRUBIN NEGATIVE (NEGATIVE); BLOOD 2+ (NEGATIVE); CLARITY SL CLOUDY (CLEAR); COLOR YELLOW (YELLOW); GLUCOSE NEGATIVE (NEGATIVE); KETONE NEGATIVE (NEGATIVE); LEUKO ESTERASE 3+ (NEGATIVE); NITRITE POSITIVE (NEGATIVE); PH 7.5 (5.0-9.0); SPECIFIC GRAVITY <= 1.005 (1.005-1.030); UROBILINOGEN 0.2 E.U./dl (0.2-1.0)
[2018-02-13 17:24] LABS: BASO # 0.1 10*3/uL (0.0-0.1); BASO % 0.5 % (0.0-1.0); EOS # 0.2 10*3/uL (0.0-0.4); HEMATOCRIT 38.9 % (42.0-52.0); HEMOGLOBIN 11.7 g/dl (14.0-18.0); LYMPH # 4.3 10*3/uL (1.3-4.4); LYMPH % 38.3 % (27.0-41.0); MEAN CELL VOLUME 74.5 fl (80.0-94.0); MEAN CORPUSCULAR HGB 22.4 pg (27.0-31.0); MEAN CORPUSCULAR HGB CONC 30.1 g/dl (33.0-37.0); MEAN PLATELET VOLUME 9.6 fl (9.6-12.3); NEUT # 5.6 10*3/uL (2.3-7.9); NEUT % 49.6 % (47.0-73.0); PLATELET COUNT AUTOMATED 462 10*3/uL (130-400); RED BLOOD COUNT 5.22 10*6/uL (4.50-5.90); RED CELL DISTRI WIDTH 15.5 % (0-14.5); WHITE BLOOD COUNT 11.2 10*3/uL (4.8-10.8)
[2018-02-13 17:33] LABS: BACTERIA 4+
[2018-02-13 17:34] LABS: WBC 51-100 wbc/hpf (0-5)
[2018-02-13 17:35] LABS: RBC 31-40 rbc/hpf (0-2)
[2018-02-13 17:39] LABS: ALBUMIN 3.8 gm/dl (3.1-4.5); ALKALINE PHOSPHATASE 134 U/L (45-117); BUN 16 mg/dl (7-24); CHLORIDE 102 mmol/L (98-107); POTASSIUM 4.2 mmol/L (3.5-5.1); SGOT/AST 11 IU/L (3-35); SGPT/ALT 22 U/L (12-78); SODIUM 138 mmol/L (136-145); TOTAL PROTEIN 8.3 gm/dL (6.4-8.2)
[2018-02-13 20:00] VITALS: BP 114/64
[2018-02-13 20:30] VITALS: BP 119/62
[2018-02-13 20:32] VITALS: BP 119/62
[2018-02-13] MEDS ORDERED: OXYCODONE HCL10 M1 PO (22:46)
[2018-02-14] VITALS: BP 107/47
[2018-02-14 08:00] VITALS: BP 117/57
[2018-02-14 12:00] VITALS: BP 143/86
[2018-02-14 16:00] VITALS: BP 133/67
[2018-02-15] VITALS: BP 108/41
[2018-02-15 06:31] LABS: BASO # 0.1 10*3/uL (0.0-0.1); BASO % 0.6 % (0.0-1.0); EOS # 0.4 10*3/uL (0.0-0.4); EOS % 4.3 % (1.0-4.0); HEMATOCRIT 36.7 % (42.0-52.0); HEMOGLOBIN 10.6 g/dl (14.0-18.0); LYMPH % 47.6 % (27.0-41.0); MEAN CELL VOLUME 77.4 fl (80.0-94.0); MEAN CORPUSCULAR HGB 22.4 pg (27.0-31.0); MEAN CORPUSCULAR HGB CONC 28.9 g/dl (33.0-37.0); MEAN PLATELET VOLUME 9.8 fl (9.6-12.3); MONO # 0.8 10*3/uL (0.1-1.0); MONO % 9.7 % (3.0-9.0); NEUT # 3.2 10*3/uL (2.3-7.9); NEUT % 37.4 % (47.0-73.0); PLATELET COUNT AUTOMATED 420 10*3/uL (130-400); RED BLOOD COUNT 4.74 10*6/uL (4.50-5.90); RED CELL DISTRI WIDTH 15.5 % (0-14.5); WHITE BLOOD COUNT 8.4 10*3/uL (4.8-10.8)
[2018-02-15 07:02] LABS: BUN 15 mg/dl (7-24); CHLORIDE 106 mmol/L (98-107); CREATININE 0.96 mg/dL (0.70-1.30); POTASSIUM 4.4 mmol/L (3.5-5.1); SODIUM 144 mmol/L (136-145)
[2018-02-15 08:00] VITALS: BP 135/76
[2018-02-15 12:00] VITALS: BP 110/62
[2018-02-15 16:00] VITALS: BP 103/68
[2018-02-15 20:00] VITALS: BP 114/61
[2018-02-16] VITALS: BP 82/45
[2018-02-16 08:00] VITALS: BP 137/81
[2018-02-16 12:00] VITALS: BP 111/46
[2018-02-16 16:00] VITALS: BP 101/56
[2018-02-16 20:00] VITALS: BP 101/49
[2018-02-17] VITALS: BP 97/50
[2018-02-17 08:00] VITALS: BP 110/58
[2018-02-17 16:00] VITALS: BP 92/46
[2018-02-17 20:00] VITALS: BP 96/48
[2018-02-18] VITALS: BP 101/55
[2018-02-18 06:32] LABS: BUN 16 mg/dl (7-24); CREATININE 0.85 mg/dL (0.70-1.30)
[2018-02-18 08:00] VITALS: BP 105/58
[2018-02-18 12:00] VITALS: BP 106/43
[2018-02-18 16:00] VITALS: BP 106/47
[2018-02-18 20:00] VITALS: BP 102/54
[2018-02-19] VITALS: BP 101/48
[2018-02-19 07:59] VITALS: BP 114/61
[2018-02-19 12:06] VITALS: BP 97/50
[2018-02-19 15:48] VITALS: BP 103/50
[2018-02-19 20:00] VITALS: BP 120/58
[2018-02-20] VITALS: BP 114/64
[2018-02-20 08:00] VITALS: BP 104/46
[2018-02-20 12:00] VITALS: BP 98/60
[2018-02-20 16:00] VITALS: BP 105/59; BP 108/63
[2018-02-20 20:00] VITALS: BP 114/61
[2018-02-21] VITALS: BP 97/50
[2018-02-21 08:00] VITALS: BP 109/72
[2018-02-21 10:46] LABS: CREATININE 0.93 mg/dL (0.70-1.30)
[2018-02-21 11:03] LABS: VANCOMYCIN TROUGH 23.1 ug/mL (10-20)
[2018-02-21 12:00] VITALS: BP 124/72
[2018-02-21 16:00] VITALS: BP 110/56
[2018-02-21 20:00] VITALS: BP 113/52
[2018-02-22] VITALS: BP 92/51
[2018-02-22] MEDS ORDERED: AMOXICILLIN500 M3 PO (07:16)
[2018-02-22] MEDS ORDERED: DOXYCYCLINE100 M3 PO (07:16)
[2018-02-22 08:00] VITALS: BP 119/73
[2018-02-22 12:00] VITALS: BP 100/56
[2018-02-22 16:00] VITALS: BP 112/75; BP 96/54
== END 2018-02-22 19:01 | disposition home or self-care (01) | DRG 690 ==
LOC: ED 16:34 → 5E 19:21 → EDHOLD 19:21 → 5E 20:25
PROVIDERS: Emergency Medicine; Internal Medicine
DX: N12 Tubulo-interstitial nephritis, not specified as acute or chronic (principal); D68.51 Activated protein C resistance; I11.0 Hypertensive heart disease with heart failure; I50.9 Heart failure, unspecified; F33.0 Major depressive disorder, recurrent, mild; N32.1 Vesicointestinal fistula; E11.9 Type 2 diabetes mellitus without complications; B95.2 Enterococcus as the cause of diseases classified elsewhere; E66.9 Obesity, unspecified; F41.9 Anxiety disorder, unspecified; E78.2 Mixed hyperlipidemia; B96.89 Other specified bacterial agents as the cause of diseases classified elsewhere; H25.13 Age-related nuclear cataract, bilateral; B30.9 Viral conjunctivitis, unspecified; G89.29 Other chronic pain; J44.9 Chronic obstructive pulmonary disease, unspecified; K21.9 Gastro-esophageal reflux disease without esophagitis; G43.109 Migraine with aura, not intractable, without status migrainosus; Z88.5 Allergy status to narcotic agent; Z88.1 Allergy status to other antibiotic agents; Z88.6 Allergy status to analgesic agent; Z88.8 Allergy status to other drugs, medicaments and biological substances; Z79.899 Other long term (current) drug therapy; Z79.4 Long term (current) use of insulin; Z85.038 Personal history of other malignant neoplasm of large intestine; Z86.718 Personal history of other venous thrombosis and embolism; Z85.72 Personal history of non-Hodgkin lymphomas; Z87.440 Personal history of urinary (tract) infections; Z80.49 Family history of malignant neoplasm of other genital organs; Z83.3 Family history of diabetes mellitus; Z82.49 Family history of ischemic heart disease and other diseases of the circulatory system; Z68.31 Body mass index [BMI] 31.0-31.9, adult

== ENCOUNTER 2018-02-24 12:21 | Emergency (ER) | payer OTHER ==
[~2018-02-24] VITALS: Ht 187.9 cm; Wt 130.2 kg
[~2018-02-24 12:21] MED LIST changes: +AMOXICILLIN500 M3 PO; +OXYCODONE HCL10 M1 PO
[2018-02-24 12:25] VITALS: BP 110/68
[2018-02-24 13:20] LABS: BASO # 0.1 10*3/uL (0.0-0.1); BASO % 0.5 % (0.0-1.0); EOS # 0.2 10*3/uL (0.0-0.4); EOS % 1.6 % (1.0-4.0); HEMATOCRIT 35.8 % (42.0-52.0); HEMOGLOBIN 10.6 g/dl (14.0-18.0); LYMPH # 4.6 10*3/uL (1.3-4.4); LYMPH % 42.7 % (27.0-41.0); MEAN CELL VOLUME 74.7 fl (80.0-94.0); MEAN CORPUSCULAR HGB 22.1 pg (27.0-31.0); MEAN CORPUSCULAR HGB CONC 29.6 g/dl (33.0-37.0); MEAN PLATELET VOLUME 9.1 fl (9.6-12.3); MONO % 9.2 % (3.0-9.0); NEUT # 4.9 10*3/uL (2.3-7.9); NEUT % 45.6 % (47.0-73.0); PLATELET COUNT AUTOMATED 275 10*3/uL (130-400); RED BLOOD COUNT 4.79 10*6/uL (4.50-5.90); RED CELL DISTRI WIDTH 14.8 % (0-14.5); WHITE BLOOD COUNT 10.8 10*3/uL (4.8-10.8)
[2018-02-24 13:39] LABS: ALBUMIN 3.5 gm/dl (3.1-4.5); ALKALINE PHOSPHATASE 105 U/L (45-117); BUN 14 mg/dl (7-24); CHLORIDE 103 mmol/L (98-107); CREATININE 0.97 mg/dL (0.70-1.30); POTASSIUM 4.2 mmol/L (3.5-5.1); SGOT/AST 12 IU/L (3-35); SGPT/ALT 22 U/L (12-78); SODIUM 140 mmol/L (136-145); TOTAL PROTEIN 7.5 gm/dL (6.4-8.2)
[2018-02-24 14:03] LABS: BILIRUBIN NEGATIVE (NEGATIVE); BLOOD 3+ (NEGATIVE); CLARITY CLOUDY (CLEAR); COLOR YELLOW (YELLOW); GLUCOSE 2+ (NEGATIVE); KETONE NEGATIVE (NEGATIVE); LEUKO ESTERASE 2+ (NEGATIVE); NITRITE POSITIVE (NEGATIVE); PH 5.5 (5.0-9.0); UROBILINOGEN 0.2 E.U./dl (0.2-1.0)
[2018-02-24 14:14] LABS: BACTERIA 3+; EPITHELIAL CELLS 0-2; RBC 31-40 rbc/hpf (0-2); WBC 16-20 wbc/hpf (0-5)
== END 2018-02-24 14:30 | disposition home or self-care (01) ==
LOC: ED 12:21
PROVIDERS: Nurse Practitioner Family
DX: N39.0 Urinary tract infection, site not specified (principal); R31.9 Hematuria, unspecified; Z98.890 Other specified postprocedural states; Z79.899 Other long term (current) drug therapy; Z88.8 Allergy status to other drugs, medicaments and biological substances; Z88.1 Allergy status to other antibiotic agents; Z88.6 Allergy status to analgesic agent

== ENCOUNTER 2018-05-01 20:53 | Emergency (ER) | payer OTHER ==
[~2018-05-01] VITALS: Ht 187.9 cm; Wt 128.4 kg
--- NOTE | ~2018-05-01 | EKG ---
[place], [place] ELECTROCARDIOGRAM REPORT NAME: CLARE KUMARI UNIT #: [id number] ROOM: DOCTOR: EPIPHANY DRAFT REPORT BIRTHDATE: [birth year] [facility] Test Date: 2018-05-01 Test Time: 21:27:25 Pat Name: CLARE KUMARI Department: ER Room: 10 Gender: M Voltmeter Operator: Michelle Zarate : 1965 Requested By: GIOVANY ARMENDARIZ Order Number: [id number] Reading MD: Myron Landers MD Measurements Intervals [place] Rate: 102 P: 37 MA: 178 QRS: -18 QRSD: 100 T: 26 QT: 353 QTc: 460 Interpretive Statements Sinus tachycardia Normal pattern Electronically Signed On 05-02-2018 10:51:33 PDT by Myron Landers MD CM:EKGRPT:ELECTROCARDIOGRAM REPORT 26 1051 GIOVANY ARMENDARIZ MD EPIPHANY DRAFT REPORT GIOVANY ARMENDARIZ MD
[2018-05-01 21:00] VITALS: BP 126/70
[2018-05-01 21:45] LABS: BASO # 0.1 10*3/uL (0.0-0.1); BASO % 0.5 % (0.0-1.0); EOS # 0.2 10*3/uL (0.0-0.4); EOS % 1.4 % (1.0-4.0); HEMATOCRIT 40.9 % (42.0-52.0); HEMOGLOBIN 12.5 g/dl (14.0-18.0); LYMPH # 4.6 10*3/uL (1.3-4.4); LYMPH % 43.1 % (27.0-41.0); MEAN CELL VOLUME 74.4 fl (80.0-94.0); MEAN CORPUSCULAR HGB 22.7 pg (27.0-31.0); MEAN CORPUSCULAR HGB CONC 30.6 g/dl (33.0-37.0); MONO # 0.9 10*3/uL (0.1-1.0); MONO % 8.6 % (3.0-9.0); PLATELET COUNT AUTOMATED 323 10*3/uL (130-400); RED CELL DISTRI WIDTH 18.4 % (0-14.5); WHITE BLOOD COUNT 10.8 10*3/uL (4.8-10.8)
[2018-05-01 21:54] LABS: INTERNATIONAL NORM RATIO 0.9 (2.0-3.5)
[2018-05-01 21:59] LABS: BILIRUBIN NEGATIVE (NEGATIVE); BLOOD 2+ (NEGATIVE); CLARITY CLOUDY (CLEAR); COLOR YELLOW (YELLOW); GLUCOSE 3+ (NEGATIVE); KETONE NEGATIVE (NEGATIVE); LEUKO ESTERASE 1+ (NEGATIVE); NITRITE POSITIVE (NEGATIVE); SPECIFIC GRAVITY 1.015 (1.005-1.030); UROBILINOGEN 0.2 E.U./dl (0.2-1.0)
[2018-05-01 22:02] LABS: ALBUMIN 3.6 gm/dl (3.1-4.5); ALKALINE PHOSPHATASE 140 U/L (45-117); BUN 16 mg/dl (7-24); CHLORIDE 95 mmol/L (98-107); LIPASE 315 U/L (73-393); SGOT/AST 20 IU/L (3-35); SGPT/ALT 28 U/L (12-78); SODIUM 134 mmol/L (136-145)
[2018-05-01 22:04] LABS: BACTERIA 4+; MUCOUS TRACE; RBC 0-2 rbc/hpf (0-2); WBC 41-50 wbc/hpf (0-5)
[2018-05-01 22:07] LABS: TROPONIN I < 0.015 ng/ml (<0.045)
[2018-05-01 22:07] LABS: URINE AMPHETAMINES < 1000 (1000ng/ml); URINE BARBITURATES < 200 (200ng/ml); URINE BENZODIAZEPINES < 200 (200ng/ml); URINE CANNABINOIDS (THC) < 50 (50ng/ml); URINE COCAINE < 300 (300ng/ml); URINE METHADONE < 300 (300ng/ml); URINE OPIATES > 300 (300ng/ml)
[2018-05-01 22:08] LABS: URINE PHENCYCLIDINE < 25 (25ng/ml)
[2018-07-05] MEDS ORDERED: PREDNISONE5 MG PO (08:55)
== END 2018-05-02 02:11 | disposition home or self-care (01) ==
LOC: ED 20:53
PROVIDERS: Emergency Medicine Emergency Medical Services
DX: N39.0 Urinary tract infection, site not specified (principal); R42 Dizziness and giddiness; R41.0 Disorientation, unspecified; R07.89 Other chest pain; J44.9 Chronic obstructive pulmonary disease, unspecified; I11.0 Hypertensive heart disease with heart failure; I50.9 Heart failure, unspecified; K21.9 Gastro-esophageal reflux disease without esophagitis; E78.5 Hyperlipidemia, unspecified; G43.909 Migraine, unspecified, not intractable, without status migrainosus; E66.9 Obesity, unspecified; Z88.6 Allergy status to analgesic agent; Z88.1 Allergy status to other antibiotic agents; Z88.8 Allergy status to other drugs, medicaments and biological substances; Z79.899 Other long term (current) drug therapy; Z86.718 Personal history of other venous thrombosis and embolism; Z68.34 Body mass index [BMI] 34.0-34.9, adult

== ENCOUNTER 2018-05-06 20:50 | Emergency (ER) | payer OTHER ==
[~2018-05-06] VITALS: Ht 187.9 cm; Wt 128.4 kg
[2018-05-06 20:52] VITALS: BP 122/74
[2018-05-06 21:12] LABS: BILIRUBIN NEGATIVE (NEGATIVE); BLOOD 2+ (NEGATIVE); CLARITY SL CLOUDY (CLEAR); COLOR YELLOW (YELLOW); GLUCOSE NEGATIVE (NEGATIVE); KETONE NEGATIVE (NEGATIVE); LEUKO ESTERASE 3+ (NEGATIVE); NITRITE POSITIVE (NEGATIVE); SPECIFIC GRAVITY <= 1.005 (1.005-1.030); UROBILINOGEN 0.2 E.U./dl (0.2-1.0)
[2018-05-06 21:25] LABS: BACTERIA 3+; WBC 16-20 wbc/hpf (0-5)
[2018-05-06 21:29] LABS: BASO # 0.1 10*3/uL (0.0-0.1); BASO % 0.7 % (0.0-1.0); EOS # 0.3 10*3/uL (0.0-0.4); EOS % 2.7 % (1.0-4.0); HEMATOCRIT 43.2 % (42.0-52.0); HEMOGLOBIN 13.4 g/dl (14.0-18.0); LYMPH # 4.8 10*3/uL (1.3-4.4); LYMPH % 38.8 % (27.0-41.0); MEAN CELL VOLUME 74.6 fl (80.0-94.0); MEAN CORPUSCULAR HGB 23.1 pg (27.0-31.0); MEAN PLATELET VOLUME 9.7 fl (9.6-12.3); MONO # 1.1 10*3/uL (0.1-1.0); MONO % 8.4 % (3.0-9.0); NEUT # 6.1 10*3/uL (2.3-7.9); NEUT % 48.8 % (47.0-73.0); PLATELET COUNT AUTOMATED 322 10*3/uL (130-400); RED BLOOD COUNT 5.79 10*6/uL (4.50-5.90); RED CELL DISTRI WIDTH 18.9 % (0-14.5); WHITE BLOOD COUNT 12.4 10*3/uL (4.8-10.8)
[2018-05-06 21:47] LABS: ALBUMIN 3.8 gm/dl (3.1-4.5); BUN 13 mg/dl (7-24); CHLORIDE 97 mmol/L (98-107); CREATININE 1.18 mg/dL (0.70-1.30); POTASSIUM 3.6 mmol/L (3.5-5.1); SGOT/AST 18 IU/L (3-35); SODIUM 136 mmol/L (136-145); TOTAL PROTEIN 8.4 gm/dL (6.4-8.2)
[2018-05-06 21:51] LABS: ALKALINE PHOSPHATASE 136 U/L (45-117); SGPT/ALT 27 U/L (12-78)
[2018-05-06] MEDS ORDERED: OMNICEF300 MG PO (22:06)
[2018-07-05] MEDS ORDERED: PREDNISONE5 MG PO (08:55)
== END 2018-05-06 22:11 | disposition home or self-care (01) ==
LOC: ED 20:50
PROVIDERS: Physician Assistant
DX: N39.0 Urinary tract infection, site not specified (principal); N41.9 Inflammatory disease of prostate, unspecified; Z79.899 Other long term (current) drug therapy; Z79.84 Long term (current) use of oral hypoglycemic drugs; Z88.1 Allergy status to other antibiotic agents; Z88.5 Allergy status to narcotic agent; Z88.6 Allergy status to analgesic agent; Z88.8 Allergy status to other drugs, medicaments and biological substances

== ENCOUNTER 2018-05-29 15:23 | Inpatient (IN) | payer OTHER ==
[~2018-05-29] VITALS: Ht 187.9 cm; Wt 127.0 kg
--- NOTE | ~2018-05-29 | WRIGHTHP ---
[place], [place] PATIENT HISTORY AND PHYSICAL EXAM NAME: CLARE KUMARI [facility] #: [id number] UNIT #: [id number] ROOM: [facility] DOCTOR: SPARKLE CONTRERAS MD BIRTHDATE: [birth year] DOS: 05/29/2018 HISTORY OF PRESENT ILLNESS: The patient is a 52-year-old gentleman with a past medical history of: 1. Recurrent urinary tract infections with colovesical fistula being followed at [facility] by GI surgeons, the patient with a history of obesity. 2. Benign essential hypertension. 3. Type 2 diabetes mellitus. 4. Mixed hyperlipidemia. 5. Chronic obstructive pulmonary disease. 6. Chronic pain syndrome. 7. Factor V Leiden mutation, coagulopathy. ADDENDUM PAST MEDICAL HISTORY: 1. Reversal of colostomy. 2. Chronic stasis dermatitis involving the skin of both legs. 3. Benign essential hypertension. 4. Chronic primary insomnia. 5. Mixed hyperlipidemia. 6. Adult failure to thrive. The patient felt weak, shaking, chills, nauseous and fever at the detention and was sent to the Emergency Department where he was found to be tachycardic, heart rate of around 150 beats per minute and fever of more than 103 degrees Fahrenheit. The patient was found to have sepsis, severe urinary infection and he was admitted to ICU. No chest pain, no shortness of breath. No other GI or urinary symptoms. The patient is waiting for surgery for enterovesical fistula at [facility]. SYSTEMS REVIEW: RESPIRATORY: No increasing shortness of breath. GASTROINTESTINAL: The patient has some nausea. CARDIOVASCULAR: No chest pains or shortness of breath. FAMILY HISTORY: Noncontributory. HOME MEDICATIONS: Propranolol, Bumex, omeprazole, glipizide, venlafaxine, apixaban, clonazepam. ALLERGIES: Known allergies to DARVOCET, METFORMIN, NUBAIN, QUINOLONES, RITUXAN and CODEINE. PHYSICAL EXAMINATION: GENERAL: Alert and oriented x 3, morbidly obese. Generalized weakness. VITAL SIGNS: Blood pressure 120/60, heart rate of 123 beats per minute, breathing 25 times per minute, fever from 100.7 going up to 103.2 degrees Fahrenheit. HEENT AND NECK: Extraocular movements are intact. Sclerae are anicteric. Oral [place], [place] PATIENT HISTORY AND PHYSICAL EXAM [facility]: [facility] [id number] UNIT #: [id number] ROOM: [facility] DOCTOR: SPARKLE CONTRERAS MD BIRTHDATE: [birth year] mucosa is moist and clean. No obvious facial weakness. Neck is supple without any lymphadenopathy. No thyromegaly. No JVD. No carotid arterial bruits. LUNGS: Clear to auscultation. No wheezing. No rhonchi. CARDIOVASCULAR SYSTEM: Heart rate is regular in rate and rhythm. S1 and S2 normally audible. No significant murmur or any other abnormal cardiac sounds. ABDOMEN: Soft, nontender. No obvious organomegaly. Bowel sounds are present. No obvious herniation. Obesity and the patient has multiple surgical scars on the mid abdomen and a reversal of colostomy. EXTREMITIES: With stasis dermatitis and pigmentary changes and varicose veins with leg and pedal edema. CENTRAL NERVOUS SYSTEM: Alert and oriented x 3. Cranial nerves II-XII are intact. Speech is normal. The patient is able to move all extremities. Normal muscle strength. Deep tendon reflexes are equal on both sides. Plantars were downgoing. LABORATORY DATA: White cell count of 20,000, hemoglobin 12. Normal platelets, normal serum electrolytes. Lactic acid level 1.9. IMPRESSION: 1. Sepsis with fever, leukocytosis, shaking chills, tachycardia and high-grade fever and urinary infection. The patient admitted to ICU for close monitoring and started on Rocephin and vancomycin and the patient will be seen by Infectious Disease specialist. 2. Enterovesical being followed and treated at [facility]. He is waiting for surgery. 3. Type 2 diabetes mellitus. Blood sugars are being monitored and treated, reasonably controlled. 4. Benign essential hypertension. Blood pressure is normal. I will continue treatment. 5. Factor V Leiden mutation and hypercoagulopathy treated with apixaban, which is being continued. 6. Centrilobular emphysema, treated with bronchodilators. 7. Benign essential hypertension. Blood pressures to be monitored and treated. 8. Generalized anxiety disorder and psych issues. I will continue his home meds. 9. Mixed hyperlipidemia to be treated with atorvastatin. The patient already on Latuda, trazodone and Trintellix in the past. Lot of his medications were discontinued when he was at [facility] in [place]. [place], [place] PATIENT HISTORY AND PHYSICAL EXAM NAME: CLARE KUMARI UNIT #: [id number] ROOM: [facility] DOCTOR: DIANE KUMAR,SPARKLE Priest BIRTHDATE: [birth year] SPARKLE CONTRERAS MD CM:HISPHYS:PATIENT HISTORY AND PHYSICAL EXAMINATION [id number] SPARKLE CONTRERAS MD 05/30/18 0048 interface
--- NOTE | ~2018-05-29 | CON ---
[place], [place] REPORT OF CONSULTATION [id number] UNIT #: [id number] ROOM: [facility] DOCTOR: BRITT PADILLA MD BIRTHDATE: [birth year] DOS: 05/30/2018 REASON FOR CONSULTATION: Pyelonephritis. CHIEF COMPLAINT: Fever and chills. HISTORY OF PRESENT ILLNESS: This is a 52-year-old male with a past medical history of recurrent UTIs with colovesical fistula, who is supposed to go for his surgery next month at [facility] and he was recently treated for his urine infection with Enterobacter cloacae and E. faecalis back in January 2018 with Rocephin at least per the documentation, it looks like he was given for 7 to 10 days. He presents with fever, chills, mild abdominal pain. He has a Abad catheter in place. His UA shows pyuria and urine cultures are in process. However, blood cultures 2 sets obtained on 05/29/2018 both the sets at the same time are positive for gram-negative bacilli. The patient has been started on vancomycin and ceftriaxone. PAST MEDICAL HISTORY: Significant for recurrent UTIs, colovesical fistula, hypertension, type 2 diabetes, hyperlipidemia, COPD, Factor V Leiden mutation. PAST SURGICAL HISTORY: Reversal of colostomy that led to colovesical fistula, chronic stasis dermatitis involving the skin of both legs. ALLERGIES: DARVOCET, METFORMIN, QUINOLONES, RITUXAN, AND CODEINE. HOME MEDICATIONS: Include propranolol, Bumex, omeprazole, glipizide, venlafaxine, apixaban, clonazepam. FAMILY HISTORY: Noncontributory. REVIEW OF SYSTEMS: A 12-point review of systems has been done. Pertinent negative, positive has been included in HPI, rest are noncontributory. PHYSICAL EXAMINATION: VITAL SIGNS: Temperature 100.9, pulse rate 128, respiratory rate 22, blood pressure 130/63. GENERAL: The patient is alert, oriented x 3, not in acute distress. HEENT: Atraumatic, normocephalic. PERRLA, EOMI. RESPIRATORY: Air entry bilaterally equal. No wheeze or crackles. HEART: S1, S2 tachycardic. ABDOMEN: Soft, nontender, nondistended, bowel sounds present in all 4 quadrants. Previous colostomy reversal scar can be seen midline. EXTREMITIES: No pedal edema. Has chronic skin changes from dermatitis. Abad catheter in place. LABORATORY DATA: Reveal WBC count to 19.5, which was 20.3 yesterday. Hemoglobin 11.5, platelets 226. BUN 13, creatinine 1.05, GFR more than 60. [place], [place] REPORT OF CONSULTATION NAME: CLARE KUMARI UNIT #: [id number] ROOM: [facility] DOCTOR: VALERIE KUMARBRITT BIRTHDATE: [birth year] Imaging reviewed, mentioned in HPI. ASSESSMENT: 1. Recurrent urinary tract infection, likely from colovesical fistula. 2. Pyelonephritis from above. 3. Gram-negative bacteremia from above. 4. Past history of urinary tract infection with Enterobacter cloacae and E. faecalis. PLAN: 1. At this time, considering nosocomial exposure, keep him on Zosyn. Discontinue vancomycin. 2. Repeat a set of blood culture not from his [facility]. 3. Once the patient is clinically stable, may be able to change him to oral antibiotics. 4. His definite plan includes repair of his colovesical fistula to prevent his recurrent bacteremia and UTIs. Thank you for your consult. Please call for any questions. Kaley Padilla MD CM:CONSTR:REPORT OF CONSULTATION 0949 05/30/18 1028 interface
--- NOTE | ~2018-05-29 | EKG ---
[place], [place] ELECTROCARDIOGRAM REPORT NAME: CLARE KUMARI UNIT #: [id number] ROOM: [facility] DOCTOR: IMMANUEL DRAFT REPORT BIRTHDATE: [birth year] [facility] Test Date: 2018-05-29 Test Time: 16:00:03 Pat Name: CLARE KUMARI Department: Room: [facility] Gender: M Substation Operator: Lula Beard : [id number] Requested By: GIULIA THAYER Order Number: [id number] Reading MD: Troy Kaur MD Measurements Intervals [place] Rate: 148 P: IA: QRS: -36 QRSD: 98 T: 57 QT: 299 QTc: 470 Interpretive Statements Atrial flutter with predominant 2:1 AV block Ventricular premature complex Left axis deviation Borderline low voltage, extremity leads Baseline wander in lead(s) I,II,aVR,V1,V2 Compared to ECG 05/01/2018 21:27:25 2:1 AV block now present Ventricular premature complex(es) now present Left-axis deviation now present Sinus tachycardia no longer present Electronically Signed On 06-02-2018 11:03:13 PDT by Tryo Kaur MD CM:EKGRPT:ELECTROCARDIOGRAM REPORT 1600 [id number] GIULIA GAMBINO DRAFT REPORT GIULIA THAYER MD
--- NOTE | ~2018-05-29 | DS ---
[place], [place] DISCHARGE SUMMARY NAME: CLARE KUMARI [facility] #: [id number] UNIT #: [id number] ROOM: [facility] DOCTOR: SPARKLE OCNTRERAS MD BIRTHDATE: [birth year] DOS: 05/30/2018 DISCHARGE DIAGNOSES: 1. Sepsis with gram-negative bacilli. 2. Urinary tract infection growing gram-negative bacilli. 3. Benign essential hypertension. 4. Morbid obesity. 5. Type 2 diabetes mellitus. 6. Mixed hyperlipidemia. 7. Factor V Leiden mutation and coagulopathy. 8. Chronic pain syndrome. 9. Chronic obstructive pulmonary disease. 10. Mixed hyperlipidemia. 11. History of carcinoma of the colon, status post colostomy and reversal of the colostomy. 12. The patient with colovesical fistula followed by [facility] GI surgery at [facility]. 13. Mixed hyperlipidemia. 14. Adult failure to thrive. 15. Chronic primary insomnia. 16. Chronic stasis dermatitis involving the skin of both legs. HOSPITAL COURSE: 1. The patient presented to [facility] Emergency Department from the [facility] with shaking chills, weakness, nausea and fever. The patient was found to have sepsis with high grade fever of more than 103 degrees Fahrenheit, leukocytosis more than 20,000 white cell count and tachycardia of 250 beats per minute. A request was made to transfer to [facility] where he is getting treatment, but there were no beds available, so the patient was admitted to ICU and finally being transferred to [facility]. The patient is scheduled for a fistula surgery in June of this year and is to be followed by his GI specialized surgeons at [facility]. The patient is being treated with IV Zosyn and his white cell count remains at close to 20,000. Fever has reduced to 100.8 and tachycardic ranging between 112-128 beats per minute. The patient has been accepted and being transferred to [facility]. 2. Factor V Leiden deficiency and hypercoagulopathy, treated with apixaban. 3. Type 2 diabetes mellitus. The patient remains on insulin. Blood sugars were monitored. 4. Nausea, controlled with ondansetron. 5. GERD and esophagitis, treated with omeprazole. 6. Major depression, recurrent, mild, treated with venlafaxine, which was continued. 7. COPD. The patient treated with DuoNebs, no increasing shortness of breath. LABORATORY DATA: Blood and urine cultures both growing preliminary gram-negative bacilli. White cell count of 20,000. Chest x-ray without acute abnormality. DISCHARGE MANAGEMENT: The patient is on Tradjenta 5 mg a day, omeprazole 20 mg b.i.d., venlafaxine 75 mg b.i.d., Lantus insulin 20 units subcutaneously every [place], [place] DISCHARGE SUMMARY NAME: CLARE KUMARI UNIT #: [id number] ROOM: [facility] DOCTOR: DIANE KUMAR,SPARKLE Priest BIRTHDATE: [birth year] night, Seroquel 25 mg at bedtime, gabapentin 400 mg every 8 hours, apixaban 5 mg b.i.d., DuoNeb every 4 hours, ondansetron 8 mg every 6 hours as needed, IV Zosyn 3.375 grams every 8 hours, Dilaudid 2 mg every 3 hours p.r.n. for pain, IV vancomycin 2.5 grams IV every 12 hours. SPARKLE CONTRERAS MD CM:MARISELA [phone] SPARKLE CONTRERAS MD 05/30/18 180 interface
--- NOTE | ~2018-05-29 | CON ---
[place], [place] REPORT OF CONSULTATION NAME: CLARE KUMARI UNIT #: [id number] ROOM: [facility] DO[facility] BIR[facility]: [birth year] DOS: 05/30/2018 I agree with the assessment and plan made by the nurse practitioner, Sheri Castellano. I reviewed the labs and imaging and made the necessary changes in the note. Kaley Chau MD CM:CONSTR:REPORT OF CONSULTATION 1709 06/11/18 0553 interface
[2018-05-29 15:23] VITALS: BP 127/68
[~2018-05-29 15:23] MED LIST changes: +OMNICEF300 MG PO
[2018-05-29] MEDS ORDERED: ELIQUIS5 M1 PO (15:48)
[2018-05-29] MEDS ORDERED: LIPITOR10 MG PO (15:48)
[2018-05-29] MEDS ORDERED: DALI500T PO (15:48)
[2018-05-29] MEDS ORDERED: FLOVENT HFA12 GM INH (15:49)
[2018-05-29] MEDS ORDERED: NEURONTIN600 MG PO (15:50)
[2018-05-29] MEDS ORDERED: JANUVIA100 MG PO (15:51)
[2018-05-29] MEDS ORDERED: OMEPRAZOLE D/R20 MG PO (15:52)
[2018-05-29] MEDS ORDERED: LEVEMIR FL100 UNIT/1 SQ (15:52)
[2018-05-29] MEDS ORDERED: VENLAFAXINE75 M1 PO (15:53)
[2018-05-29] MEDS ORDERED: SEROQUEL25 MG PO (15:53)
[2018-05-29] MEDS ORDERED: BUMETANIDE2 MG PO (15:59)
[2018-05-29] MEDS ORDERED: GLUCOTROL10 MG PO (15:59)
[2018-05-29] MEDS ORDERED: PROPRANOLOL HCL80 M1 PO (15:59)
[2018-05-29] MEDS ORDERED: KLONOPIN1 M1 PO (16:00)
[2018-05-29 16:21] LABS: HEMATOCRIT 38.5 % (42.0-52.0); HEMOGLOBIN 12.1 g/dl (14.0-18.0); MEAN CELL VOLUME 75.8 fl (80.0-94.0); MEAN CORPUSCULAR HGB 23.8 pg (27.0-31.0); MEAN CORPUSCULAR HGB CONC 31.4 g/dl (33.0-37.0); MEAN PLATELET VOLUME 9.3 fl (9.6-12.3); PLATELET COUNT AUTOMATED 244 10*3/uL (130-400); RED BLOOD COUNT 5.08 10*6/uL (4.50-5.90); RED CELL DISTRI WIDTH 17.4 % (0-14.5); WHITE BLOOD COUNT 20.3 10*3/uL (4.8-10.8)
[2018-05-29 16:22] LABS: BILIRUBIN NEGATIVE (NEGATIVE); BLOOD 3+ (NEGATIVE); CLARITY CLOUDY (CLEAR); COLOR YELLOW (YELLOW); GLUCOSE 3+ (NEGATIVE); KETONE NEGATIVE (NEGATIVE)
[2018-05-29 16:23] LABS: BACTERIA 2+; LEUKO ESTERASE 1+ (NEGATIVE); NITRITE NEGATIVE (NEGATIVE); RBC TNTC rbc/hpf (0-2); UROBILINOGEN 0.2 E.U./dl (0.2-1.0); WBC TNTC wbc/hpf (0-5)
[2018-05-29 16:24] VITALS: BP 113/71
[2018-05-29 16:30] LABS: ACT PARTIAL THROMBO TIME 34.1 SECONDS (20.8-31.5)
[2018-05-29 16:37] LABS: ALBUMIN 3.1 gm/dl (3.1-4.5); ALKALINE PHOSPHATASE 127 U/L (45-117); BUN 12 mg/dl (7-24); CHLORIDE 97 mmol/L (98-107); CREATININE 1.09 mg/dL (0.70-1.30); POTASSIUM 4.1 mmol/L (3.5-5.1); SGOT/AST 7 IU/L (3-35); SGPT/ALT 18 U/L (12-78); SODIUM 133 mmol/L (136-145); TOTAL PROTEIN 7.9 gm/dL (6.4-8.2)
[2018-05-29 16:41] LABS: TROPONIN I < 0.015 ng/ml (<0.045)
[2018-05-29 16:51] LABS: MICROCYTOSIS SLIGHT; PLATELET SUFFICIENCY NORMAL (NORMAL); TOTAL CELLS COUNTED 100 #CELLS
[2018-05-29 17:45] VITALS: BP 120/62
[2018-05-29] MEDS ORDERED: NEURONTIN300 MG PO (18:11)
[2018-05-29] MEDS ORDERED: HUMALOG KW200 UNIT/1 SQ (18:15)
[2018-05-29] MEDS ORDERED: DILAUDID2 M1 PO (18:17)
[2018-05-29] MEDS ORDERED: MILK OF MA400 MG/52 PO (18:21)
[2018-05-29] MEDS ORDERED: MAPAP EXTRA ST500 MG PO (18:23)
[2018-05-29] MEDS ORDERED: PROVENTIL HFA6.7 GM INH (18:25)
[2018-05-29 20:00] VITALS: BP 118/64
[2018-05-30] VITALS: BP 145/78
[2018-05-30 04:00] VITALS: BP 115/70
[2018-05-30 05:54] LABS: HEMATOCRIT 37.2 % (42.0-52.0); HEMOGLOBIN 11.5 g/dl (14.0-18.0); MEAN CELL VOLUME 77.3 fl (80.0-94.0); MEAN CORPUSCULAR HGB 23.9 pg (27.0-31.0); MEAN CORPUSCULAR HGB CONC 30.9 g/dl (33.0-37.0); PLATELET COUNT AUTOMATED 226 10*3/uL (130-400); RED BLOOD COUNT 4.81 10*6/uL (4.50-5.90); RED CELL DISTRI WIDTH 17.7 % (0-14.5); WHITE BLOOD COUNT 19.5 10*3/uL (4.8-10.8)
[2018-05-30 06:15] LABS: BUN 13 mg/dl (7-24); CHLORIDE 101 mmol/L (98-107); CREATININE 1.05 mg/dL (0.70-1.30); POTASSIUM 3.9 mmol/L (3.5-5.1); SODIUM 137 mmol/L (136-145)
[2018-05-30 06:47] LABS: MICROCYTOSIS SLIGHT; TOTAL CELLS COUNTED 100 #CELLS
[2018-05-30 06:48] LABS: PLATELET SUFFICIENCY NORMAL (NORMAL); POLYCHROMASIA SLIGHT
[2018-05-30 08:00] VITALS: BP 130/63
[2018-05-30 09:58] VITALS: BP 138/60
[2018-05-30 12:00] VITALS: BP 145/79
[2018-05-30 16:00] VITALS: BP 138/80
[2018-05-30] MEDS ORDERED: ONDANSETRON4 MG/2 M3 IV (16:50)
[2018-05-30] MEDS ORDERED: ZOSYN 3.373.375 GM/5 IV (16:50)
[2018-07-05] MEDS ORDERED: PREDNISONE5 MG PO (08:55)
== END 2018-05-30 19:53 | disposition short-term general hospital (02) | DRG 872 ==
LOC: ED 15:23 → EDHOLD 16:24 → ICCU 16:24
PROVIDERS: Emergency Medicine; Internal Medicine
DX: A41.50 Gram-negative sepsis, unspecified (principal); N32.1 Vesicointestinal fistula; D68.51 Activated protein C resistance; N12 Tubulo-interstitial nephritis, not specified as acute or chronic; E11.9 Type 2 diabetes mellitus without complications; E78.00 Pure hypercholesterolemia, unspecified; I50.9 Heart failure, unspecified; F32.9 Major depressive disorder, single episode, unspecified; K21.9 Gastro-esophageal reflux disease without esophagitis; G43.909 Migraine, unspecified, not intractable, without status migrainosus; J43.2 Centrilobular emphysema; F41.1 Generalized anxiety disorder; I11.0 Hypertensive heart disease with heart failure; G89.4 Chronic pain syndrome; E78.2 Mixed hyperlipidemia; E66.01 Morbid (severe) obesity due to excess calories; G47.00 Insomnia, unspecified; I87.2 Venous insufficiency (chronic) (peripheral); Z85.038 Personal history of other malignant neoplasm of large intestine; Z93.3 Colostomy status; Z68.35 Body mass index [BMI] 35.0-35.9, adult; Z86.718 Personal history of other venous thrombosis and embolism; Z85.72 Personal history of non-Hodgkin lymphomas; Z79.01 Long term (current) use of anticoagulants; Z79.4 Long term (current) use of insulin; Z79.899 Other long term (current) drug therapy; Z88.5 Allergy status to narcotic agent; Z88.8 Allergy status to other drugs, medicaments and biological substances

== ENCOUNTER 2018-06-26 13:31 | Emergency (ER) | payer OTHER ==
[~2018-06-26] VITALS: Ht 187.9 cm; Wt 124.7 kg
[~2018-06-26 13:31] MED LIST changes: +DILAUDID2 M1 PO; +FLOVENT HFA12 GM INH; +GLUCOTROL10 MG PO; +HUMALOG KW200 UNIT/1 SQ; +LEVEMIR FL100 UNIT/1 SQ; +MAPAP EXTRA ST500 MG PO; +MILK OF MA400 MG/52 PO; +NEURONTIN600 MG PO; +OMEPRAZOLE D/R20 MG PO; +ONDANSETRON4 MG/2 M3 IV; +PROPRANOLOL HCL80 M1 PO; +PROVENTIL HFA6.7 GM INH; +SEROQUEL25 MG PO; +VENLAFAXINE75 M1 PO; +ZOSYN 3.373.375 GM/5 IV
[2018-06-26 13:53] LABS: BILIRUBIN 2+ (NEGATIVE); BLOOD 3+ (NEGATIVE); CLARITY TURBID (CLEAR); COLOR BROWN (YELLOW); GLUCOSE NEGATIVE (NEGATIVE); KETONE TRACE (NEGATIVE); NITRITE POSITIVE (NEGATIVE)
[2018-06-26 14:12] LABS: BASO # 0.1 10*3/uL (0.0-0.1); BASO % 0.6 % (0.0-1.0); EOS # 0.3 10*3/uL (0.0-0.4); EOS % 2.7 % (1.0-4.0); HEMATOCRIT 38.7 % (42.0-52.0); HEMOGLOBIN 12.6 g/dl (14.0-18.0); LYMPH # 4.1 10*3/uL (1.3-4.4); MEAN CELL VOLUME 75.7 fl (80.0-94.0); MEAN CORPUSCULAR HGB 24.7 pg (27.0-31.0); MEAN CORPUSCULAR HGB CONC 32.6 g/dl (33.0-37.0); MEAN PLATELET VOLUME 10.1 fl (9.6-12.3); MONO # 0.9 10*3/uL (0.1-1.0); MONO % 8.8 % (3.0-9.0); NEUT # 5.3 10*3/uL (2.3-7.9); NEUT % 49.1 % (47.0-73.0); PLATELET COUNT AUTOMATED 253 10*3/uL (130-400); RED BLOOD COUNT 5.11 10*6/uL (4.50-5.90); RED CELL DISTRI WIDTH 15.8 % (0-14.5); WHITE BLOOD COUNT 10.7 10*3/uL (4.8-10.8)
[2018-06-26 14:16] LABS: BACTERIA 4+; LEUKO ESTERASE 3+ (NEGATIVE); RBC 51-100 rbc/hpf (0-2); WBC 21-30 wbc/hpf (0-5)
[2018-06-26 14:27] LABS: ALBUMIN 3.5 gm/dl (3.1-4.5); BUN 17 mg/dl (7-24); CHLORIDE 96 mmol/L (98-107); CREATININE 1.47 mg/dL (0.70-1.30); POTASSIUM 3.9 mmol/L (3.5-5.1); SGOT/AST 23 IU/L (3-35); SGPT/ALT 35 U/L (12-78); SODIUM 133 mmol/L (136-145); TOTAL PROTEIN 7.8 gm/dL (6.4-8.2)
[2018-06-26 14:28] LABS: ALKALINE PHOSPHATASE 137 U/L (45-117)
[2018-06-26 20:50] VITALS: BP 117/71
[2018-07-05] MEDS ORDERED: PREDNISONE5 MG PO (08:55)
== END 2018-06-26 15:24 | disposition other institution (70) ==
LOC: ED 13:31
PROVIDERS: Registered Nurse
DX: N39.0 Urinary tract infection, site not specified (principal); Z88.5 Allergy status to narcotic agent; Z88.1 Allergy status to other antibiotic agents; Z88.8 Allergy status to other drugs, medicaments and biological substances; Z79.899 Other long term (current) drug therapy; Z79.84 Long term (current) use of oral hypoglycemic drugs; Z79.891 Long term (current) use of opiate analgesic; Z98.890 Other specified postprocedural states

== ENCOUNTER 2018-07-23 13:42 | Emergency (ER) | payer OTHER ==
[~2018-07-23] VITALS: Ht 187.9 cm; Wt 124.7 kg
[2018-07-23 13:42] VITALS: BP 122/78
[2018-07-23 14:35] LABS: BASO # 0.1 10*3/uL (0.0-0.1); BASO % 0.6 % (0.0-1.0); EOS # 0.3 10*3/uL (0.0-0.4); HEMATOCRIT 40.9 % (42.0-52.0); HEMOGLOBIN 13.4 g/dl (14.0-18.0); LYMPH # 4.8 10*3/uL (1.3-4.4); LYMPH % 37.8 % (27.0-41.0); MEAN CELL VOLUME 77.8 fl (80.0-94.0); MEAN CORPUSCULAR HGB 25.5 pg (27.0-31.0); MEAN CORPUSCULAR HGB CONC 32.8 g/dl (33.0-37.0); MONO # 1.1 10*3/uL (0.1-1.0); MONO % 8.6 % (3.0-9.0); NEUT # 6.3 10*3/uL (2.3-7.9); NEUT % 50.4 % (47.0-73.0); PLATELET COUNT AUTOMATED 275 10*3/uL (130-400); RED BLOOD COUNT 5.26 10*6/uL (4.50-5.90); RED CELL DISTRI WIDTH 15.5 % (0-14.5); WHITE BLOOD COUNT 12.6 10*3/uL (4.8-10.8)
[2018-07-23 14:51] LABS: ALBUMIN 3.8 gm/dl (3.1-4.5); ALKALINE PHOSPHATASE 127 U/L (45-117); BUN 13 mg/dl (7-24); CHLORIDE 95 mmol/L (98-107); CREATININE 1.11 mg/dL (0.70-1.30); POTASSIUM 3.3 mmol/L (3.5-5.1); SGOT/AST 19 IU/L (3-35); SGPT/ALT 37 U/L (12-78); SODIUM 133 mmol/L (136-145); TOTAL PROTEIN 7.9 gm/dL (6.4-8.2)
[2018-07-23 15:03] LABS: BILIRUBIN NEGATIVE (NEGATIVE); BLOOD 3+ (NEGATIVE); CLARITY CLEAR (CLEAR); COLOR YELLOW (YELLOW); GLUCOSE NEGATIVE (NEGATIVE); KETONE NEGATIVE (NEGATIVE); LEUKO ESTERASE 3+ (NEGATIVE); NITRITE POSITIVE (NEGATIVE); PH 5.5 (5.0-9.0); SPECIFIC GRAVITY <= 1.005 (1.005-1.030); UROBILINOGEN 0.2 E.U./dl (0.2-1.0)
[2018-07-23 15:15] LABS: RBC 0-2 rbc/hpf (0-2); WBC TNTC wbc/hpf (0-5)
[2018-07-23 15:16] LABS: BACTERIA 4+; MUCOUS TRACE
[2018-07-23] MEDS ORDERED: SEPTDS PO (18:55)
== END 2018-07-23 19:16 | disposition home or self-care (01) ==
LOC: ED 13:42
PROVIDERS: Emergency Medicine
DX: N39.0 Urinary tract infection, site not specified (principal); I11.0 Hypertensive heart disease with heart failure; I50.9 Heart failure, unspecified; G89.29 Other chronic pain; J44.9 Chronic obstructive pulmonary disease, unspecified; K21.9 Gastro-esophageal reflux disease without esophagitis; E78.5 Hyperlipidemia, unspecified; G43.909 Migraine, unspecified, not intractable, without status migrainosus; E11.9 Type 2 diabetes mellitus without complications; E66.09 Other obesity due to excess calories; Z88.8 Allergy status to other drugs, medicaments and biological substances; Z88.5 Allergy status to narcotic agent; Z88.1 Allergy status to other antibiotic agents; Z88.6 Allergy status to analgesic agent; Z79.899 Other long term (current) drug therapy; Z79.84 Long term (current) use of oral hypoglycemic drugs; Z79.4 Long term (current) use of insulin; Z93.3 Colostomy status; Z68.30 Body mass index [BMI] 30.0-30.9, adult; Z86.718 Personal history of other venous thrombosis and embolism

== ENCOUNTER 2018-07-29 13:39 | Emergency (ER) | payer OTHER ==
[~2018-07-29] VITALS: Ht 187.9 cm; Wt 122.5 kg
[~2018-07-29 13:39] MED LIST changes: +SEPTDS PO
[2018-07-29 15:09] LABS: BASO # 0.1 10*3/uL (0.0-0.1); BASO % 0.6 % (0.0-1.0); EOS # 0.4 10*3/uL (0.0-0.4); EOS % 2.9 % (1.0-4.0); HEMOGLOBIN 14.1 g/dl (14.0-18.0); LYMPH # 4.2 10*3/uL (1.3-4.4); LYMPH % 34.1 % (27.0-41.0); MEAN CELL VOLUME 78.1 fl (80.0-94.0); MEAN CORPUSCULAR HGB 26.2 pg (27.0-31.0); MEAN CORPUSCULAR HGB CONC 33.6 g/dl (33.0-37.0); MONO # 0.9 10*3/uL (0.1-1.0); MONO % 7.1 % (3.0-9.0); NEUT # 6.7 10*3/uL (2.3-7.9); NEUT % 54.7 % (47.0-73.0); PLATELET COUNT AUTOMATED 308 10*3/uL (130-400); RED BLOOD COUNT 5.38 10*6/uL (4.50-5.90); WHITE BLOOD COUNT 12.2 10*3/uL (4.8-10.8)
[2018-07-29 15:13] LABS: BILIRUBIN NEGATIVE (NEGATIVE); BLOOD 3+ (NEGATIVE); CLARITY TURBID (CLEAR); COLOR YELLOW (YELLOW); GLUCOSE NEGATIVE (NEGATIVE); KETONE NEGATIVE (NEGATIVE); LEUKO ESTERASE 2+ (NEGATIVE); NITRITE POSITIVE (NEGATIVE); SPECIFIC GRAVITY 1.015 (1.005-1.030); UROBILINOGEN 0.2 E.U./dl (0.2-1.0)
[2018-07-29 15:20] LABS: BACTERIA 4+; EPITHELIAL CELLS TNTC; MUCOUS TRACE; RBC TNTC rbc/hpf (0-2); WBC TNTC wbc/hpf (0-5)
[2018-07-29 15:25] LABS: ALBUMIN 3.6 gm/dl (3.1-4.5); ALKALINE PHOSPHATASE 134 U/L (45-117); BUN 12 mg/dl (7-24); CHLORIDE 99 mmol/L (98-107); CREATININE 1.37 mg/dL (0.70-1.30); LIPASE 248 U/L (73-393); POTASSIUM 3.7 mmol/L (3.5-5.1); SGOT/AST 24 IU/L (3-35); SGPT/ALT 37 U/L (12-78); SODIUM 136 mmol/L (136-145); TOTAL PROTEIN 7.7 gm/dL (6.4-8.2)
[2018-07-29 18:41] VITALS: BP 110/65
== END 2018-07-29 18:55 | disposition short-term general hospital (02) ==
LOC: ED 13:39
PROVIDERS: Emergency Medicine
DX: S30.810A Abrasion of lower back and pelvis, initial encounter (principal); K63.2 Fistula of intestine; K60.4 Rectal fistula; I11.0 Hypertensive heart disease with heart failure; I50.9 Heart failure, unspecified; G89.29 Other chronic pain; J44.9 Chronic obstructive pulmonary disease, unspecified; E78.5 Hyperlipidemia, unspecified; E11.9 Type 2 diabetes mellitus without complications; G43.909 Migraine, unspecified, not intractable, without status migrainosus; E66.9 Obesity, unspecified; K21.9 Gastro-esophageal reflux disease without esophagitis; Z85.038 Personal history of other malignant neoplasm of large intestine; Z88.8 Allergy status to other drugs, medicaments and biological substances; Z88.5 Allergy status to narcotic agent; Z88.1 Allergy status to other antibiotic agents; Z88.6 Allergy status to analgesic agent; Z79.2 Long term (current) use of antibiotics; Z79.84 Long term (current) use of oral hypoglycemic drugs; Z79.899 Other long term (current) drug therapy; Z79.4 Long term (current) use of insulin; Z93.3 Colostomy status; Z86.718 Personal history of other venous thrombosis and embolism; Z68.30 Body mass index [BMI] 30.0-30.9, adult; X58.XXXA Exposure to other specified factors, initial encounter; Y93.89 Activity, other specified; Y92.89 Other specified places as the place of occurrence of the external cause; Y99.8 Other external cause status

== ENCOUNTER 2018-08-14 12:40 | Emergency (ER) | payer OTHER ==
[~2018-08-14] VITALS: Ht 187.9 cm; Wt 122.0 kg
[2018-08-14] MEDS ORDERED: LISINOPRIL5 MG PO (14:10)
[2018-08-14 14:13] LABS: BASO # 0.1 10*3/uL (0.0-0.1); BASO % 0.6 % (0.0-1.0); EOS # 0.1 10*3/uL (0.0-0.4); EOS % 0.9 % (1.0-4.0); HEMATOCRIT 43.8 % (42.0-52.0); HEMOGLOBIN 14.4 g/dl (14.0-18.0); LYMPH # 2.4 10*3/uL (1.3-4.4); LYMPH % 17.2 % (27.0-41.0); MEAN CELL VOLUME 79.1 fl (80.0-94.0); MEAN CORPUSCULAR HGB CONC 32.9 g/dl (33.0-37.0); MEAN PLATELET VOLUME 10.1 fl (9.6-12.3); MONO # 0.9 10*3/uL (0.1-1.0); MONO % 6.7 % (3.0-9.0); NEUT # 10.2 10*3/uL (2.3-7.9); NEUT % 73.9 % (47.0-73.0); PLATELET COUNT AUTOMATED 321 10*3/uL (130-400); RED BLOOD COUNT 5.54 10*6/uL (4.50-5.90); RED CELL DISTRI WIDTH 15.9 % (0-14.5); WHITE BLOOD COUNT 13.8 10*3/uL (4.8-10.8)
[2018-08-14 14:22] LABS: ACT PARTIAL THROMBO TIME 29.9 SECONDS (20.8-31.5)
[2018-08-14 14:28] LABS: ALBUMIN 3.9 gm/dl (3.1-4.5); ALKALINE PHOSPHATASE 143 U/L (45-117); BUN 20 mg/dl (7-24); CHLORIDE 98 mmol/L (98-107); CREATININE 1.19 mg/dL (0.70-1.30); LIPASE 162 U/L (73-393); POTASSIUM 3.5 mmol/L (3.5-5.1); SGOT/AST 13 IU/L (3-35); SGPT/ALT 23 U/L (12-78); SODIUM 134 mmol/L (136-145); TOTAL PROTEIN 8.4 gm/dL (6.4-8.2)
[2018-08-14 14:32] LABS: BILIRUBIN NEGATIVE (NEGATIVE); BLOOD 2+ (NEGATIVE); CLARITY CLOUDY (CLEAR); COLOR YELLOW (YELLOW); GLUCOSE NEGATIVE (NEGATIVE); KETONE NEGATIVE (NEGATIVE); LEUKO ESTERASE 3+ (NEGATIVE); NITRITE NEGATIVE (NEGATIVE); UROBILINOGEN 0.2 E.U./dl (0.2-1.0)
[2018-08-14 14:41] LABS: BACTERIA 4+; MUCOUS TRACE; WBC TNTC wbc/hpf (0-5)
[2018-08-14 20:23] VITALS: BP 98/52
== END 2018-08-14 20:50 | disposition short-term general hospital (02) ==
LOC: ED 12:40
PROVIDERS: Nurse Practitioner Family
DX: A41.9 Sepsis, unspecified organism (principal); N39.0 Urinary tract infection, site not specified; R65.20 Severe sepsis without septic shock; J44.9 Chronic obstructive pulmonary disease, unspecified; I50.9 Heart failure, unspecified; E11.9 Type 2 diabetes mellitus without complications; Z79.4 Long term (current) use of insulin; Z88.1 Allergy status to other antibiotic agents; Z88.6 Allergy status to analgesic agent; Z88.8 Allergy status to other drugs, medicaments and biological substances; Z79.899 Other long term (current) drug therapy; Z85.038 Personal history of other malignant neoplasm of large intestine; Z86.718 Personal history of other venous thrombosis and embolism

== ENCOUNTER 2018-09-04 11:23 | Emergency (ER) | payer OTHER, MEDICAID ==
[~2018-09-04 11:23] MED LIST changes: +LISINOPRIL5 MG PO
[2018-09-04 11:27] VITALS: BP 125/79
[2018-09-04 12:19] LABS: BASO # 0.1 10*3/uL (0.0-0.1); BASO % 0.7 % (0.0-1.0); EOS # 0.3 10*3/uL (0.0-0.4); EOS % 2.7 % (1.0-4.0); HEMATOCRIT 42.5 % (42.0-52.0); HEMOGLOBIN 14.1 g/dl (14.0-18.0); LYMPH # 3.2 10*3/uL (1.3-4.4); LYMPH % 30.4 % (27.0-41.0); MEAN CELL VOLUME 81.4 fl (80.0-94.0); MEAN CORPUSCULAR HGB CONC 33.2 g/dl (33.0-37.0); MEAN PLATELET VOLUME 9.8 fl (9.6-12.3); MONO % 9.4 % (3.0-9.0); NEUT # 5.9 10*3/uL (2.3-7.9); NEUT % 56.2 % (47.0-73.0); PLATELET COUNT AUTOMATED 320 10*3/uL (130-400); RED BLOOD COUNT 5.22 10*6/uL (4.50-5.90); RED CELL DISTRI WIDTH 15.3 % (0-14.5); WHITE BLOOD COUNT 10.6 10*3/uL (4.8-10.8)
[2018-09-04 12:29] LABS: ACT PARTIAL THROMBO TIME 28.6 SECONDS (20.8-31.5); INTERNATIONAL NORM RATIO 0.9 (2.0-3.5)
[2018-09-04 12:32] LABS: ALBUMIN 3.8 gm/dl (3.1-4.5); ALKALINE PHOSPHATASE 124 U/L (45-117); BUN 13 mg/dl (7-24); CHLORIDE 101 mmol/L (98-107); CREATININE 1.04 mg/dL (0.70-1.30); LIPASE 169 U/L (73-393); POTASSIUM 4.2 mmol/L (3.5-5.1); SGOT/AST 15 IU/L (3-35); SGPT/ALT 22 U/L (12-78); SODIUM 136 mmol/L (136-145); TOTAL PROTEIN 7.8 gm/dL (6.4-8.2)
[2018-09-04 12:51] LABS: BILIRUBIN NEGATIVE (NEGATIVE); BLOOD 2+ (NEGATIVE); CLARITY CLOUDY (CLEAR); COLOR YELLOW (YELLOW); GLUCOSE NEGATIVE (NEGATIVE); KETONE NEGATIVE (NEGATIVE); LEUKO ESTERASE 2+ (NEGATIVE); NITRITE POSITIVE (NEGATIVE); SPECIFIC GRAVITY <= 1.005 (1.005-1.030); UROBILINOGEN 0.2 E.U./dl (0.2-1.0)
[2018-09-04 13:10] LABS: RBC 51-100 rbc/hpf (0-2)
[2018-09-04 13:12] LABS: BACTERIA 3+
[2018-12-22] MEDS ORDERED: ZYVOX600 MG PO (07:38)
[2019-01-03] MEDS ORDERED: ZITHROMAX250 MG PO (19:22)
[2019-01-05] MEDS ORDERED: REQUIP0.5 MG PO (14:04)
[2019-01-05] MEDS ORDERED: BUSPIRONE10 MG PO (14:04)
[2019-01-14] MEDS ORDERED: ZOSYN 4.54.5 GM/100 IV (10:25)
[2019-01-15] MEDS ORDERED: MEDROL DOSEPAK4 MG PO (10:14)
[2019-03-16] MEDS ORDERED: DELTASONE20 M1 PO (17:17)
[2019-03-16] MEDS ORDERED: VIBRAMYCIN100 MG PO (17:17)
== END 2018-09-04 14:21 | disposition home or self-care (01) ==
LOC: ED 11:23
PROVIDERS: Emergency Medicine
DX: G89.29 Other chronic pain (principal); I11.0 Hypertensive heart disease with heart failure; I50.9 Heart failure, unspecified; J44.9 Chronic obstructive pulmonary disease, unspecified; D68.2 Hereditary deficiency of other clotting factors; K21.9 Gastro-esophageal reflux disease without esophagitis; E78.5 Hyperlipidemia, unspecified; E11.9 Type 2 diabetes mellitus without complications; G43.109 Migraine with aura, not intractable, without status migrainosus; E66.9 Obesity, unspecified; Z68.34 Body mass index [BMI] 34.0-34.9, adult; Z86.010 Personal history of colon polyps; Z98.890 Other specified postprocedural states; Z79.4 Long term (current) use of insulin; Z85.038 Personal history of other malignant neoplasm of large intestine; Z79.899 Other long term (current) drug therapy; Z88.5 Allergy status to narcotic agent; Z86.718 Personal history of other venous thrombosis and embolism; Z88.8 Allergy status to other drugs, medicaments and biological substances; Z88.6 Allergy status to analgesic agent

== ENCOUNTER 2018-09-11 16:38 | Emergency (ER) | payer OTHER, MEDICAID ==
[~2018-09-11] VITALS: Ht 187.9 cm; Wt 122.5 kg
[2018-09-11 16:38] VITALS: BP 131/79
== END 2018-09-11 18:44 | disposition home or self-care (01) ==
LOC: ED 16:38
DX: G89.29 Other chronic pain (principal); K62.89 Other specified diseases of anus and rectum; J44.9 Chronic obstructive pulmonary disease, unspecified; Z93.3 Colostomy status; I11.0 Hypertensive heart disease with heart failure; I50.9 Heart failure, unspecified; K21.9 Gastro-esophageal reflux disease without esophagitis; E78.5 Hyperlipidemia, unspecified; E66.9 Obesity, unspecified; G43.909 Migraine, unspecified, not intractable, without status migrainosus; E11.9 Type 2 diabetes mellitus without complications; Z86.73 Personal history of transient ischemic attack (TIA), and cerebral infarction without residual deficits; Z88.8 Allergy status to other drugs, medicaments and biological substances; Z88.5 Allergy status to narcotic agent; Z88.1 Allergy status to other antibiotic agents; Z88.6 Allergy status to analgesic agent; Z79.899 Other long term (current) drug therapy; Z79.4 Long term (current) use of insulin; Z79.84 Long term (current) use of oral hypoglycemic drugs; Z68.30 Body mass index [BMI] 30.0-30.9, adult

== ENCOUNTER 2018-09-15 22:48 | Emergency (ER) | payer OTHER, MEDICAID ==
[~2018-09-15] VITALS: Ht 187.9 cm; Wt 122.5 kg
[2018-09-15 23:33] LABS: BASO # 0.1 10*3/uL (0.0-0.1); BASO % 0.5 % (0.0-1.0); EOS # 0.2 10*3/uL (0.0-0.4); EOS % 1.3 % (1.0-4.0); HEMATOCRIT 42.7 % (42.0-52.0); HEMOGLOBIN 14.5 g/dl (14.0-18.0); LYMPH # 3.8 10*3/uL (1.3-4.4); LYMPH % 30.3 % (27.0-41.0); MEAN CELL VOLUME 81.5 fl (80.0-94.0); MEAN CORPUSCULAR HGB 27.7 pg (27.0-31.0); MONO # 0.9 10*3/uL (0.1-1.0); MONO % 7.2 % (3.0-9.0); NEUT # 7.6 10*3/uL (2.3-7.9); NEUT % 60.3 % (47.0-73.0); PLATELET COUNT AUTOMATED 333 10*3/uL (130-400); RED BLOOD COUNT 5.24 10*6/uL (4.50-5.90); RED CELL DISTRI WIDTH 15.2 % (0-14.5); WHITE BLOOD COUNT 12.6 10*3/uL (4.8-10.8)
[2018-09-15 23:48] LABS: ALBUMIN 3.6 gm/dl (3.1-4.5); ALKALINE PHOSPHATASE 117 U/L (45-117); BUN 17 mg/dl (7-24); CHLORIDE 104 mmol/L (98-107); CREATININE 1.46 mg/dL (0.70-1.30); SGOT/AST 16 IU/L (3-35); SGPT/ALT 21 U/L (12-78); SODIUM 137 mmol/L (136-145); TOTAL PROTEIN 7.3 gm/dL (6.4-8.2)
[2018-09-16 01:00] VITALS: BP 118/72
[2018-09-16] MEDS ORDERED: LISINOPRIL5 MG PO (12:41)
[2018-09-16] MEDS ORDERED: MS CONTIN30 MG PO (12:42)
[2018-09-16] MEDS ORDERED: NEURONTIN800 MG PO (12:50)
[2018-09-16] MEDS ORDERED: DILAUDID4 MG PO (12:50)
[2018-09-16] MEDS ORDERED: GLIPIZIDE10 M2 PO (12:51)
[2018-09-16] MEDS ORDERED: BUMETANIDE2 MG PO (12:51)
[2018-09-16] MEDS ORDERED: METOPROLOL SUCC25 M2 PO (12:51)
== END 2018-09-16 01:47 | disposition home or self-care (01) ==
LOC: ED 22:48
PROVIDERS: Emergency Medicine
DX: G89.29 Other chronic pain (principal); K62.89 Other specified diseases of anus and rectum; J45.909 Unspecified asthma, uncomplicated; I11.0 Hypertensive heart disease with heart failure; I50.9 Heart failure, unspecified; J44.9 Chronic obstructive pulmonary disease, unspecified; K21.9 Gastro-esophageal reflux disease without esophagitis; E78.5 Hyperlipidemia, unspecified; E11.9 Type 2 diabetes mellitus without complications; G43.909 Migraine, unspecified, not intractable, without status migrainosus; E66.9 Obesity, unspecified; Z85.048 Personal history of other malignant neoplasm of rectum, rectosigmoid junction, and anus; Z88.8 Allergy status to other drugs, medicaments and biological substances; Z88.5 Allergy status to narcotic agent; Z88.1 Allergy status to other antibiotic agents; Z88.6 Allergy status to analgesic agent; Z79.899 Other long term (current) drug therapy; Z79.4 Long term (current) use of insulin; Z79.84 Long term (current) use of oral hypoglycemic drugs; Z68.30 Body mass index [BMI] 30.0-30.9, adult; Z86.73 Personal history of transient ischemic attack (TIA), and cerebral infarction without residual deficits; Z93.3 Colostomy status

== ENCOUNTER 2018-09-16 07:28 | Inpatient (IN) | payer OTHER, MEDICAID ==
[~2018-09-16] VITALS: Ht 188 cm; Wt 119.1 kg
--- NOTE | ~2018-09-16 | PR ---
[place], [place] PROGRESS NOTE NAME: CLARE KUMARI UNIT #: [id number] ROOM: 415 DOCTOR: SPARKLE CONTRERAS MD BIRTHDATE: [birth year] DOS: 09/18/2018 SUBJECTIVE: The patient is still with severe lower abdominal and rectal pains requiring Dilaudid every 2-3 hours. OBJECTIVE: GENERAL APPEARANCE: The patient is alert and oriented x 3, in no visible distress. VITAL SIGNS: Blood pressure 104/61, heart rate of 88 beats per minute, breathing 18 times per minute, afebrile. HEENT AND NECK: Exam within normal limits. CARDIOVASCULAR SYSTEM: Heart rate is regular in rate and rhythm. S1 and S2 normally audible. LUNGS: Clear to auscultation. ABDOMEN: Obesity and significant lower abdominal pains and tenderness without signs of peritonitis. EXTREMITIES: Without significant cyanosis or edema. IMPRESSION: 1. The patient with colovesical fistula and severe cystitis and urine infection growing Klebsiella pneumoniae sensitive to Zosyn. Infectious Disease specialists are also following. The patient is waiting for transfer to [facility] where he has been accepted by his surgeons. 2. Type 2 diabetes mellitus. Blood sugars are being monitored and treated. 3. Factor V Leiden deficiency. The patient remains on apixaban. 4. Gastroesophageal reflux disease and esophagitis, asymptomatic. The patient is taking omeprazole. 5. Major depression, recurrent, mild, treated and controlled with venlafaxine. 6. Centrilobular emphysema. The patient treated with bronchodilators as needed. The patient is being followed closely by Infectious Disease specialists and remains on IV Zosyn. Repeat CBC shows no leukocytosis. His leukocytosis is improved. Blood cultures are negative. Urine cultures are positive for Klebsiella pneumoniae. [place], [place] PROGRESS NOTE NAME: CLARE KUMARI UNIT #: [id number] ROOM: 415 DOCTOR: SPARKLE CONTRERAS MD BIRTHDATE: [birth year] SPARKLE CONTRERAS MD CM:PNTRANS [id number] SPARKLE CONTRERAS MD 09/19/18 0214 interface
--- NOTE | ~2018-09-16 | WRIGHTHP ---
[place], [place] PATIENT HISTORY AND PHYSICAL EXAM NAME: CLARE KUMARI [facility] #: [id number] UNIT #: [id number] ROOM: 415 DOCTOR: SPARKLE CONTRERAS MD BIRTHDATE: [birth year] DOS: 09/16/2018 HISTORY OF PRESENT ILLNESS: 1. The patient is a 53-year-old gentleman with a past medical history of colovesical fistula, COPD, obesity, reversal of urostomy, colostomy. 2. Type 2 diabetes mellitus. 3. Factor V Leiden deficiency, managed with Eliquis. 4. History of colon cancer in remission for 1 year and colon resection. 5. Chronic deep vein thrombosis in the right leg and inferior vena cava filter placement. 6. Generalized anxiety disorder. 7. Non-Hodgkin's lymphoma in remission since 2004. 8. Type 2 diabetes mellitus. 9. Major depression, recurrent, mild. 10. Mixed hyperlipidemia. The patient has history of colovesical fistula since his last surgery when his colostomy was reversed in 10/2017. The patient presented to the Emergency Department with severe rectal and lower abdominal pains and feces coming out of his Abad catheter. The patient has been waiting for surgery for this fistula for quite some time now. The patient has been seen at [facility] and evaluated and scheduled for surgery on multiple occasions in the past. The patient presented with a white cell count of 12,600 and was evaluated by Infectious Disease specialist, Dr. Chau and recommended for transfer to [facility], because he feels his abdominal infection is getting worse and he showing early signs of sepsis. The patient has been started on Zosyn intravenously. REVIEW OF SYSTEMS: CARDIOVASCULAR: No chest pains. GASTROINTESTINAL: The patient has a colovesical fistula with pieces coming out of his penis in the Abad catheter. RESPIRATORY: No increasing shortness of breath. He has history of COPD. HOME MEDICATIONS: Apixaban, morphine, omeprazole, Lipitor, insulin, glipizide, Bumex, lisinopril, metoprolol, venlafaxine. ALLERGIES: TO DARVOCET, METFORMIN, NUBAIN, QUINOLONES, RITUXAN. FAMILY HISTORY: Noncontributory. PHYSICAL EXAMINATION: GENERAL APPEARANCE: The patient is looking quite sick and has scars where he had reversal of urostomy and colostomy. He is also obese. VITAL SIGNS: Blood pressure 142/80, heart rate 99 beats per minute, respiratory rate 18 times per minute, temperature 98.4 degrees Fahrenheit. HEENT AND NECK: Extraocular movements are intact. Sclerae are anicteric. Oral mucosa is moist and clean. No obvious facial weakness. Neck is supple without any lymphadenopathy. No thyromegaly. No JVD. No carotid arterial bruits. LUNGS: Clear to auscultation. No wheezing. No rhonchi. CARDIOVASCULAR SYSTEM: Heart rate is regular in rate and rhythm. S1 and S2 [place], [place] PATIENT HISTORY AND PHYSICAL EXAM [facility]: [id number] #: [id number] ROOM: [facility] DOCTOR: SPARKLE CONTRERAS MD BIRTHDATE: [birth year] normally audible. No significant murmur or any other abnormal cardiac sounds. ABDOMEN: Other than scars. He has significant lower abdominal tenderness and left lower quadrant areas and suprapubic area. Some guarding, but no rigidity. Bowel sounds are present. No obvious organomegaly. EXTREMITIES: Without significant cyanosis or edema. Warm to touch. CENTRAL NERVOUS SYSTEM: Alert and oriented x 3. Cranial nerves II-XII are intact. Speech is normal. The patient is able to move all extremities. Normal muscle strength. Deep tendon reflexes are equal on both sides. Plantars were downgoing. LABORATORY DATA: Urine cultures growing heavy gram-negative bacilli. Urinalysis showing 51-100 rbc's and 21-30 wbc's per high power field and nitrites were positive. Sugar of 211. Normal serum electrolytes. White cell count of 12,600. Creatinine elevated to 1.4. CT of the abdomen showing Abad catheter with decompressed urinary bladder, superior aspect of the urinary bladder with bladder wall thickening, has low density in air inconsistent with infection. Urine culture growing heavy gram-negative bacilli. IMPRESSION: The patient with colovesical fistula with early signs of starting sepsis, severe abdominal pains and rectal pain with positive urine cultures for gram-negative bacilli and leukocytosis, white cell count correct 12,500. Case was discussed with Dr. Alma Chau, the Infectious Disease specialist and she highly recommends the patient should immediately be transferred to [facility] where he was scheduled for his fistula surgery on multiple occasions before previously. I made a call to [facility] to try and transfer the patient to the hospital over there for further care. The patient was started on IV Zosyn at [facility] after admission here and is being monitored closely. The patient is looking sick, although he is not in any distress. 1. Type 2 diabetes mellitus. The patient on insulin and blood sugars were monitored and treated. 2. Major depression, recurrent, mild, treated and controlled with venlafaxine. 3. Mixed hyperlipidemia, treated with Lipitor. 4. Factor V Leiden deficiency. The patient remained on apixaban. 5. Gastroesophageal reflux disease and esophagitis, asymptomatic with omeprazole. 6. Severe lower abdominal pains and rectal pains related to fistula and inflammation, being treated with large doses of IV Dilaudid to keep him comfortable. The patient already on gabapentin and he was on MS Contin at home. The Dilaudid has been kept on as need basis. 7. Centrilobular emphysema, treated with bronchodilators as needed. 8. Type 2 diabetes mellitus. The patient remains on lisinopril. [place], [place] PATIENT HISTORY AND PHYSICAL EXAM NAME: CLARE KUMARI UNIT #: [id number] ROOM: 415 DOCTOR: SPARKLE CONTRERAS MD BIRTHDATE: [birth year] SPARKLE CONTRERAS MD CM:HISPHYS:PATIENT HISTORY AND PHYSICAL EXAMINATION 2 3 SPARKLE CONTRERAS MD 09/17/18 0955 interface
--- NOTE | ~2018-09-16 | DS ---
[place], [place] DISCHARGE SUMMARY NAME: CLAER KUMARI [facility] #: [id number] UNIT #: [id number] ROOM: 415 DOCTOR: SPARKLE CONTRERAS MD BIRTHDATE: [birth year] DOS: 09/18/2018 DISCHARGE DIAGNOSES: 1. The patient with colovesical fistula and severe cystitis with urinary infection with Klebsiella pneumoniae. 2. Type 2 diabetes mellitus. 3. Factor V Leiden deficiency. 4. Gastroesophageal reflux disease and esophagitis. 5. Major depression, recurrent mild. 6. Centrilobular emphysema, chronic obstructive pulmonary disease. 7. Obesity. 8. Mixed hyperlipidemia. 9. History of non-Hodgkin's lymphoma in remission since 2004. 10. Chronic deep venous thrombosis, right leg with inferior vena cava filter placement. 11. History of colon cancer in remission for 1 year after colon resection. 12. 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 HOSPITAL COURSE: The patient presented with severe rectal and lower abdominal pains with feces coming out of his Abad catheter. The patient is being awaiting surgery for this colovesical fistula for quite some time now. The patient follows up at [facility] in [place] and has been scheduled and rescheduled for surgeries on multiple occasions in the past. The patient had a white cell count of 12,600 and was recommended transfer to [facility] by Dr. Alma Chau, Infectious Disease specialist. The patient was started on treatment with IV Zosyn for his urinary tract infection, which was related to the fistula. The patient was considered to be an early sepsis with leukocytosis and severe pains in the abdomen. A call was made to [facility] and they agreed to transfer the patient over for further care, considering the infection and the fistula, which was promoting the infection. Blood and urine cultures were performed. Type 2 diabetes mellitus. Blood sugars are monitored and treated. The patient also takes insulin. Major depression, recurrent, mild, treated and controlled with venlafaxine. Mixed hyperlipidemia, treated with Lipitor. Factor V Leiden deficiency. The patient anticoagulated with apixaban chronically. Gastroesophageal reflux disease and esophagitis, asymptomatic with omeprazole. Severe lower abdominal pain and rectal pains related to the fistula and inflammation, being treated with large doses of IV Dilaudid to keep him comfortable. The patient is also on gabapentin and MS Contin at home, so the Dilaudid was kept on as needed basis. COPD and centrilobular emphysema, treated with bronchodilators. [place], [place] DISCHARGE SUMMARY NAME: CLARE KUMARI UNIT #: [id number] ROOM: [facility] DOCTOR: DIANE KUMAR,SPARKLE Priest BIRTHDATE: [birth year] Type 2 diabetes mellitus. The patient is already on lisinopril and DIEGO inhibitor. Blood sugars monitored and treated and he was continued on insulin. DISCHARGE MANAGEMENT: Dilaudid p.r.n., Rocephin 2 grams IV daily, Eliquis 5 mg b.i.d., Lipitor 10 mg a day, Bumex 2 mg daily, Neurontin 800 mg 3 times a day, Glucotrol 10 mg daily, Zestril 5 mg daily, Toprol-XL 25 mg daily, MS Contin 30 mg b.i.d., Prilosec 20 mg a day, Seroquel 25 mg every 6 hours, IV Zosyn, Daliresp 500 mcg daily, Tradjenta 5 mg daily, Effexor 75 mg a day, Lantus insulin 20 units subcutaneously daily. SPARKLE CONTRERAS MD CM:DISCHARG [id number] SPARKLE CONTRERAS MD 10/09/18 1034 interface
[2018-09-16 07:28] VITALS: BP 125/94
[2018-09-16 09:00] VITALS: BP 124/88
--- NOTE | 2018-09-16 09:00 | NUR ---
NPT ASKS ME TO REMIND DR THAT HE HAS 10/10 SCALED REECTAL PAIN. DONE.
--- NOTE | 2018-09-16 09:01 | NUR ---
LORENZANA CATHG TUBE CLAMPED TO OBTAIN URINE SPECIMEN.
[2018-09-16 09:38] LABS: BILIRUBIN 3+ (NEGATIVE); BLOOD 3+ (NEGATIVE); CLARITY TURBID (CLEAR); COLOR BROWN (YELLOW); GLUCOSE TRACE (NEGATIVE); KETONE 1+ (NEGATIVE); NITRITE POSITIVE (NEGATIVE); SPECIFIC GRAVITY 1.015 (1.005-1.030)
[2018-09-16 09:39] LABS: LEUKO ESTERASE 2+ (NEGATIVE)
--- NOTE | 2018-09-16 09:42 | NUR ---
NO IMPROVEMENT IN PAIN WITH DILAUDID DOSING.
[2018-09-16 09:52] LABS: BACTERIA 4+
--- NOTE | 2018-09-16 09:52 | NUR ---
ATTEMPTED TO CONTACT DR DAWN PARRA, MESSAGE LEFT. DR MAYBERRY.
[2018-09-16 09:56] LABS: RBC TNTC rbc/hpf (0-2)
--- NOTE | 2018-09-16 10:33 | NUR ---
PT REQUESTS MORE PAIN MEDICATION, PROVIDER AWARE. SALINE INFUSING, VITALS STABLE. WE ARE AWAITING A RETURN CALL FROM [facility] FOR POSSIBLE TRANSFER THERE.
[2018-09-16 10:58] VITALS: BP 122/78
--- NOTE | 2018-09-16 11:14 | NUR ---
PT CALLS AGAIN FOR PAIN MEDS, PROVIDER AWARE.
--- NOTE | 2018-09-16 11:14 | NUR ---
[facility] NOW CALLS, SUGGESTS WE KEEP PT HERE FOR PAIN CONTROL AMONG HIS MANY OTHER ISSUES.
--- NOTE | 2018-09-16 11:43 | NUR ---
PT STATES HE HAS NO WOUNDS, DECLINES AN EXAMINATION OF SKIN.
[2018-09-16 12:00] VITALS: BP 125/72
--- NOTE | 2018-09-16 12:00 | NUR ---
Time: 1200 A 53 year old MALE admitted to 4E under services of DR. DIANE KUMAR,SPARKLE Roth Pt. arrived via stretcher from ER. Chief complaint: RECTAL PAIN. CURTIS PEREIRA
[2018-09-16] MEDS ORDERED: LISINOPRIL5 MG PO (12:41)
[2018-09-16] MEDS ORDERED: MS CONTIN30 MG PO (12:42)
[2018-09-16] MEDS ORDERED: NEURONTIN800 MG PO (12:50)
[2018-09-16] MEDS ORDERED: DILAUDID4 MG PO (12:50)
[2018-09-16] MEDS ORDERED: GLIPIZIDE10 M2 PO (12:51)
[2018-09-16] MEDS ORDERED: BUMETANIDE2 MG PO (12:51)
[2018-09-16] MEDS ORDERED: METOPROLOL SUCC25 M2 PO (12:51)
--- NOTE | 2018-09-16 13:14 | NUR ---
DR. PADILLA OFFICE AWARE OF CONSULT
--- NOTE | 2018-09-16 14:01 | NUR ---
PT COMPLAIN OF RECTAL PAIN 10/10, DILAUDID GIVEN.
--- NOTE | 2018-09-16 15:00 | NUR ---
PT STATES DILAUDID EFFECTIVE, 03/05 PAIN NOW WHICH IS TOLERABLE FOR PATIENT
[2018-09-16 15:57] LABS: BASO # 0.1 10*3/uL (0.0-0.1); BASO % 0.6 % (0.0-1.0); EOS # 0.3 10*3/uL (0.0-0.4); EOS % 2.9 % (1.0-4.0); HEMATOCRIT 40.8 % (42.0-52.0); HEMOGLOBIN 13.1 g/dl (14.0-18.0); LYMPH # 4.1 10*3/uL (1.3-4.4); LYMPH % 40.3 % (27.0-41.0); MEAN CELL VOLUME 83.1 fl (80.0-94.0); MEAN CORPUSCULAR HGB 26.7 pg (27.0-31.0); MEAN CORPUSCULAR HGB CONC 32.1 g/dl (33.0-37.0); MEAN PLATELET VOLUME 10.1 fl (9.6-12.3); MONO # 0.8 10*3/uL (0.1-1.0); MONO % 7.7 % (3.0-9.0); NEUT # 4.8 10*3/uL (2.3-7.9); PLATELET COUNT AUTOMATED 286 10*3/uL (130-400); RED BLOOD COUNT 4.91 10*6/uL (4.50-5.90); RED CELL DISTRI WIDTH 15.4 % (0-14.5); WHITE BLOOD COUNT 10.1 10*3/uL (4.8-10.8)
[2018-09-16 16:00] VITALS: BP 137/64
--- NOTE | 2018-09-16 16:00 | NUR ---
DISCUSS WITH PATIENT LORENZANA CATH, HE STATES IT WAS CHANGED ONE WEEK AGO AND HE NORMALLY HAS IT CHANGED ONCE PER MONTH, HE STATES IT HAS IT DONE IN A UROLOGIST OFFICE AND THEY HAVE TO USE A GUIDEWIRE FOR PLACEMENT AND DOES NOT WANT LORENZANA CHANGED HERE AT THIS TIME, CHANGED COLLECTION BAG AND LOOPED TUBING TO COLLECT A URINE SAMPLE.
[2018-09-16 16:27] LABS: ALBUMIN 3.2 gm/dl (3.1-4.5); ALKALINE PHOSPHATASE 113 U/L (45-117); BUN 14 mg/dl (7-24); CHLORIDE 105 mmol/L (98-107); CREATININE 1.13 mg/dL (0.70-1.30); POTASSIUM 3.9 mmol/L (3.5-5.1); SGOT/AST 10 IU/L (3-35); SGPT/ALT 15 U/L (12-78); SODIUM 140 mmol/L (136-145); TOTAL PROTEIN 7.2 gm/dL (6.4-8.2)
--- NOTE | 2018-09-16 16:30 | NUR ---
URINE SENT, URING DRAINGING INTO LORENZANA BAG WITHOUT DIFFICULTY.
[2018-09-16 16:38] LABS: BILIRUBIN NEGATIVE (NEGATIVE); BLOOD 3+ (NEGATIVE); CLARITY TURBID (CLEAR); COLOR YELLOW (YELLOW); GLUCOSE NEGATIVE (NEGATIVE); KETONE NEGATIVE (NEGATIVE); LEUKO ESTERASE 2+ (NEGATIVE); NITRITE POSITIVE (NEGATIVE); PH 6.5 (5.0-9.0); SPECIFIC GRAVITY 1.015 (1.005-1.030); UROBILINOGEN 0.2 E.U./dl (0.2-1.0)
[2018-09-16 16:54] LABS: BACTERIA 4+; RBC 51-100 rbc/hpf (0-2); WBC 21-30 wbc/hpf (0-5)
--- NOTE | 2018-09-16 17:54 | NUR ---
PT COMPLAIN OF PAIN RECTAL 10/10, DILAUDID GIVEN. SEE MAR
[2018-09-16 20:00] VITALS: BP 129/75
--- NOTE | 2018-09-16 22:44 | NUR ---
DILUADID GIVEN FOR 10 OUT OF 10 PAIN IN [place]. WILL MONITOR AND REASSESS EFFECTIVENESS
--- NOTE | 2018-09-16 22:58 | NUR ---
PT. WAS UP TO BATHROOM WHEN RETURNED TO BED PT. WAS SHAKING AND GRUNTY SWEATY AND IN SEVERE PAIN STATED "I CAN'T WAIT 4 HOURS FOR TO HAVE MY PAIN MEDICATION. I'M IN TOO MUCH PAIN. PLEASE CALL THE DOCTOR.". CALLED DR. CONTRERAS AND NOTIFIED HIM OF PT. CONDITION ORDER RECEIVED AND REPEAT TWICE.
--- NOTE | 2018-09-16 23:29 | NUR ---
DILUADID EFFECTIVE FOR 10 OUT 10 PAIN. PT REPORTS 7 OUT OF 10 PAIN.
[2018-09-17] VITALS: BP 142/80
--- NOTE | 2018-09-17 01:14 | NUR ---
DILUADID GIVEN FOR 10 OUT OF 10 PAIN IN GROIN/PENIS. WILL MONITOR AND REASSESS.
--- NOTE | 2018-09-17 01:45 | NUR ---
DILUADUD EFFECTIVE FOR 10/10 PAIN. PT RESTING COMFORTABLY.
--- NOTE | 2018-09-17 02:04 | NUR ---
24 HR chart check completed.
--- NOTE | 2018-09-17 04:56 | NUR ---
DILUADID GIVEN FOR 10/10 PAIN IN GROIN/PENIS. WILL CONTINUE TO MONITOR AND REASSESS.
--- NOTE | 2018-09-17 05:40 | NUR ---
DILUADID WAS EFFECTIVE FOR 10 OUT OF 10 PAIN. PATIENT RESTING COMFORTABLY.
[2018-09-17 08:00] VITALS: BP 126/74
--- NOTE | 2018-09-17 08:00 | NUR ---
Hydroelectric Systems Technician in to talk to patient. Patient states lives at home alone with his family checking in on him. There are 0 steps in the home. Physician: Dr. Federico Gross Pharmacy: [facility] Home health services: [facility] RN previously Patient's level of ADLs: INDEPENDENT Patient has working utilities: yes DME: O2 @ 2-3L [place]c, portable O2 tanks, nebulizer, O2 supplier [employer] Follow-up physician's appointment after d/c: he prefers to make his own follow up appt after discharge Does patient want to access PORTAL?: no Discharge plan discussed with patient. He lives at home alone with his family checking in on him. He is independent in his ADLs and ambulation. Discussed home health care services and he has had a [facility] RN previously but doesn't think he will need them on discharge. He sees the [facility] for pain management and palliative care. When medically stable he will be discharged to home. His girlfriend will transport on discharge. PATRICK MULLER
--- NOTE | 2018-09-17 09:50 | NUR ---
PT STATES PAIN 06/05, DILAUDID GIVEN
--- NOTE | 2018-09-17 10:27 | NUR ---
PT STATES DILAUDID STARTING TO BE EFFECTIVE
--- NOTE | 2018-09-17 11:25 | NUR ---
PT UP IN BATHROOM, STATES NO NEEDS AT THIS TIME
--- NOTE | 2018-09-17 11:38 | NUR ---
Spoke to Andreia mistry [facility] regarding authorization for a higher level of care to [facility] under the services of Dr. Macarena Mcginnis. Ref # [id number]. Spoke to Elaine at [facility] Med Call and have ref #. Clinicals from [facility] will need to be faxed to [phone].
[2018-09-17 12:00] VITALS: BP 117/81
--- NOTE | 2018-09-17 12:05 | NUR ---
PT COMPLAIN OF PAIN RECTAL 10/10, DILAUDID GIVEN
[2018-09-17 14:13] LABS: BASO # 0.1 10*3/uL (0.0-0.1); BASO % 0.8 % (0.0-1.0); EOS # 0.3 10*3/uL (0.0-0.4); EOS % 2.7 % (1.0-4.0); HEMATOCRIT 43.7 % (42.0-52.0); HEMOGLOBIN 14.3 g/dl (14.0-18.0); LYMPH # 3.7 10*3/uL (1.3-4.4); LYMPH % 33.2 % (27.0-41.0); MEAN CELL VOLUME 83.7 fl (80.0-94.0); MEAN CORPUSCULAR HGB 27.4 pg (27.0-31.0); MEAN CORPUSCULAR HGB CONC 32.7 g/dl (33.0-37.0); MEAN PLATELET VOLUME 9.8 fl (9.6-12.3); MONO # 0.8 10*3/uL (0.1-1.0); MONO % 7.4 % (3.0-9.0); NEUT # 6.1 10*3/uL (2.3-7.9); NEUT % 54.9 % (47.0-73.0); PLATELET COUNT AUTOMATED 292 10*3/uL (130-400); RED BLOOD COUNT 5.22 10*6/uL (4.50-5.90); RED CELL DISTRI WIDTH 15.1 % (0-14.5); WHITE BLOOD COUNT 11.1 10*3/uL (4.8-10.8)
[2018-09-17 14:24] LABS: ALBUMIN 3.5 gm/dl (3.1-4.5); ALKALINE PHOSPHATASE 120 U/L (45-117); BUN 15 mg/dl (7-24); CHLORIDE 99 mmol/L (98-107); CREATININE 1.17 mg/dL (0.70-1.30); POTASSIUM 4.4 mmol/L (3.5-5.1); SGOT/AST 15 IU/L (3-35); SGPT/ALT 22 U/L (12-78); SODIUM 136 mmol/L (136-145); TOTAL PROTEIN 7.7 gm/dL (6.4-8.2)
[2018-09-17 16:00] VITALS: BP 110/55
--- NOTE | 2018-09-17 16:02 | NUR ---
SITTING UP ON COMMODE ATTEMPTING TO HAVE BOWELMOVEMENT PT COMPLAIN OF RECTAL PAIN 10/10, DILAUDID GIVEN. SEE MAR
--- NOTE | 2018-09-17 17:10 | NUR ---
PT STATES PAIN AT THIS TIME IS 7/10, TOLERABLE. DILAUDID EFFECTIVE
--- NOTE | 2018-09-17 18:59 | NUR ---
PLACED DISCHARGE ORDER A TELEPHONE ORDER FROM DR. CONTRERAS, HE IS AWARE THAT PT DOES NOT HAVE A BED AT THIS TIME, WE ARE WAITING TO HEAR FROM [facility] WHEN THEY HAVE A BED AVAILABLE.
[2018-09-17 20:00] VITALS: BP 110/73
--- NOTE | 2018-09-17 20:20 | NUR ---
C/O PAIN IN PENIS RATE 10/10 PER PT. PT. LESS ANXIOUS THAN YESTERDAY PAIN MORE CONTROLLED. PT. ALSO FALLING ASLEEEP DURING VERY SLOW IV PUSH ADMINISTRATION OF DILAUDID. SNORING AND JERKS SELF AWAKE. PT. STATES HE HAD SLEEP APNEA. WILL CONTINUE TO MONITOR.
--- NOTE | 2018-09-17 20:42 | NUR ---
[facility] MED CALL CALLED IN AND NOTIFIED THIS RN PATIENT BED WILL NOT BE AVAILABLE UNTIL TOMORROW.
--- NOTE | 2018-09-17 21:20 | NUR ---
DILAUDID EFFECTIVE PENIS PAIN PER PT. RATED 6/10.
--- NOTE | 2018-09-17 22:36 | NUR ---
DILAUDID GIVEN PER ORDER OVER VERY SLOW IV PUSH FOR PENIS PAIN RATED 10/10 SEE MAR.
--- NOTE | 2018-09-17 23:30 | NUR ---
DILAUDID EFFECTIVE FOR PAIN PT. RATED PAIN 6/10.
[2018-09-18] VITALS: BP 116/63
--- NOTE | 2018-09-18 01:02 | NUR ---
DILAUDID GIVEN PER ORDER FOR 10/10 PAIN IN PENIS. SEE MAR. PT. IS ALERT AND ORIENTED X 3 AND AMBULATING TO AND FROM BATHROOM WITHOUT DIFFICULTY. LORENZANA CONTINUES.
--- NOTE | 2018-09-18 01:30 | NUR ---
PT. STATED " I'LL SEE YOU IN A HLAF HOUR FOR MY PAIN MEDICINE." TOLD PATIENT HE JUST HAD DILAUDID AT 1AM. PT. ASKING FOR HIS PAIN MEDICATION EVEN BEFORE IT'S DUE. NOTIFIED PT. HE'S NOT DUE TO HAVE PAIN MED UNTIL 3AM.
--- NOTE | 2018-09-18 02:40 | NUR ---
24 HR chart check completed.
--- NOTE | 2018-09-18 03:43 | NUR ---
PT. CALLED OUT FOR PAIN MEDICATION. UPON ENTERING ROOM PT. SLEEPING AND SNORING LOUDLY. PT. SNORING AWAKEND HIMSELF. PT. RATED PENIS PAIN 10/10. DILAUDID GIVEN PER VERY SLOW IV PUSH. SEE MAR. PT. FEEL BACK TO SLEEP.
--- NOTE | 2018-09-18 04:30 | NUR ---
DILAUDID EFFECTIVE FOR PAIN PER PT.
--- NOTE | 2018-09-18 06:40 | NUR ---
PT. C/O PAIN RATED 10/10 PENIS PAIN. DILAUDID GIVEN PER ORDER.
--- NOTE | 2018-09-18 06:45 | NUR ---
[facility] CALLED FOR AN UPDATE ON PATIENT CONDITION AND LAST SET OF VITAL SIGNS AND SAID COULD BE ANOTHER 4 HOURS BEFORE A BED WILL OPEN UP.
[2018-09-18 08:00] VITALS: BP 116/64
--- NOTE | 2018-09-18 08:00 | NUR ---
Lamination Assembler in to see patient. No new needs or request at this time. Discussed waiting on bed at [facility].
--- NOTE | 2018-09-18 08:33 | NUR ---
4MG DILAUDID GIVEN FOR REQUEST OF PAIN,06/05.PT UPSET AND C/O "WITHHOLDING MY PAIN MEDS". I EXPLAINED THAT MY CONCERN AT THIS TIME WAS HIS APNEIC RESPS, SNORING WHILE SLEEPING.I PLACED HIM ON 2LNC AT THIS TIME AND EXPLAINED THAT I'M NOT LIKE OTHER NURSES I WILL NOT WITHHOLD HIS PAIN MEDS BUT I CANNOT MEDICATE HIM IF HE'S SLEEPING AND CANNOT BREATHE PROPERLY.
--- NOTE | 2018-09-18 11:10 | NUR ---
PT REQUESTING DILAUDID. I EXPLAINED TO HIM THAT IT WOULD BE AN HOUR BEFORE I COULD MEDICATE HIM BECAUSE I JUST GAVE HIM HIS SCHEDULED MS CONTIN 30MG AND I WILL NOT GIVE HIM 2 LARGE DOSES OF NARCOTICS IN THE SAME HOUR.EDUCATION PROVIDED REGARDING PRN MEDS.PT BECAME AGITATED AND STATED "OTHER NURSES GIVE ME BOTH AT THE SAME TIME", "I TAKE BOTH AT HOME". I EXPLAINED THAT IV DILAUDID IS NOT A PRESCRIBED MED FOR HOME USE AND I'M NOT OTHER NURSES.I EXPLAINED I WOULD MEDICATE HIM IN 1 HOUR. PT BECAME AGITATED SO I LEFT ROOM.
[2018-09-18 12:00] VITALS: BP 118/71
--- NOTE | 2018-09-18 12:23 | NUR ---
4 MG DILAUDID GIVEN FOR PT C/O PAIN TO RECTUM/PENIS.05/06.
[2018-09-18 13:18] LABS: BASO # 0.1 10*3/uL (0.0-0.1); BASO % 0.8 % (0.0-1.0); EOS # 0.4 10*3/uL (0.0-0.4); EOS % 4.4 % (1.0-4.0); HEMATOCRIT 42.4 % (42.0-52.0); LYMPH # 3.7 10*3/uL (1.3-4.4); LYMPH % 41.3 % (27.0-41.0); MEAN CELL VOLUME 83.5 fl (80.0-94.0); MEAN CORPUSCULAR HGB 27.6 pg (27.0-31.0); MEAN PLATELET VOLUME 9.9 fl (9.6-12.3); MONO # 0.8 10*3/uL (0.1-1.0); MONO % 8.8 % (3.0-9.0); NEUT # 3.9 10*3/uL (2.3-7.9); NEUT % 44.1 % (47.0-73.0); PLATELET COUNT AUTOMATED 296 10*3/uL (130-400); RED BLOOD COUNT 5.08 10*6/uL (4.50-5.90); RED CELL DISTRI WIDTH 15.1 % (0-14.5); WHITE BLOOD COUNT 8.8 10*3/uL (4.8-10.8)
[2018-09-18 13:30] LABS: ALBUMIN 3.6 gm/dl (3.1-4.5); ALKALINE PHOSPHATASE 114 U/L (45-117); BUN 16 mg/dl (7-24); CHLORIDE 100 mmol/L (98-107); CREATININE 1.01 mg/dL (0.70-1.30); POTASSIUM 3.9 mmol/L (3.5-5.1); SGOT/AST 12 IU/L (3-35); SGPT/ALT 21 U/L (12-78); SODIUM 136 mmol/L (136-145); TOTAL PROTEIN 7.8 gm/dL (6.4-8.2)
--- NOTE | 2018-09-18 14:44 | NUR ---
MEDICATED WITH DILAUDID 4MG IV FOR COMPLAINTS OF RECTAL PAIN. RATES PAIN A 10 ON A PAIN SCALE OF 1-10
--- NOTE | 2018-09-18 15:20 | NUR ---
PT RESTING IN BED WITH EYES CLOSED.LOUDLY SNORING,ON 2LNC.STABLE AT THIS TIME. PT APPEARS TO HAVE SLEPT ALL DAY AND AWAKES ONLY FOR MEDICATION AND MEALS.
[2018-09-18 15:57] VITALS: BP 104/61
--- NOTE | 2018-09-18 16:53 | NUR ---
4 MG MORPHINE GIVEN PER PT REQUEST FOR RECTAL PAIN,05/06.ENCOURAGED PT TO ATTEMPT TO TRY TO MANAGE PAIN.PT RESPS EASY. NO DISTRESS NOTED. CALL LIGHT IN REACH.
--- NOTE | 2018-09-18 18:35 | NUR ---
[facility] CALLED AND PT WILL BE TRANSFERRED TO EIGHTH FLOOR,ROOM 86,BED 2. REPORT CALLED TO MONROE CABALLERO.
[2018-09-18 20:00] VITALS: BP 98/57
--- NOTE | 2018-09-18 20:00 | NUR ---
ALERT AND ORIENTED X3. PT. WAS IN BATHROOM. HAD LOOSE STOOL. PT. WANTS TO HOLD OFF ON GETTING PAIN MEDICATION UNTIL THE AMBULANCE COMES SO HE WILL BE MORE COMFORTABLE FOR THE RIDE TO [facility].
--- NOTE | 2018-09-18 20:50 | NUR ---
PT. WANTED DILAUDID STATED "I CAN'T WAIT ANY LONGER." DILAUDID GIVEN PER ORDER FOR PAIN IN PENIS RATED 10/10. BEDTIME MEDS GIVEN PER ORDER PRIOR TO TRANSFERR TO [facility].
--- NOTE | 2018-09-18 21:05 | NUR ---
[facility] SERVICE HERE AND PT. TRANSFERRED TO [facility] WITH BELONGINGS AND WAS DISCHARGED TO [facility] VIA AMBULANCE.
== END 2018-09-18 21:05 | disposition short-term general hospital (02) | DRG 872 ==
LOC: ED 07:28 → 4E 11:20 → EDHOLD 11:20 → 4E 11:44
PROVIDERS: Emergency Medicine; Internal Medicine; Student in an Organized Health Care Education/Training Program; ADMIT Internal Medicine
DX: A41.9 Sepsis, unspecified organism (principal); N32.1 Vesicointestinal fistula; N30.00 Acute cystitis without hematuria; F33.0 Major depressive disorder, recurrent, mild; D68.2 Hereditary deficiency of other clotting factors; E11.9 Type 2 diabetes mellitus without complications; G43.909 Migraine, unspecified, not intractable, without status migrainosus; I11.0 Hypertensive heart disease with heart failure; F41.1 Generalized anxiety disorder; K21.0 Gastro-esophageal reflux disease with esophagitis; J43.2 Centrilobular emphysema; B96.1 Klebsiella pneumoniae [K. pneumoniae] as the cause of diseases classified elsewhere; E78.2 Mixed hyperlipidemia; I50.9 Heart failure, unspecified; E66.9 Obesity, unspecified; Z85.038 Personal history of other malignant neoplasm of large intestine; Z90.49 Acquired absence of other specified parts of digestive tract; Z88.5 Allergy status to narcotic agent; Z88.8 Allergy status to other drugs, medicaments and biological substances; Z88.6 Allergy status to analgesic agent; Z86.718 Personal history of other venous thrombosis and embolism; Z87.440 Personal history of urinary (tract) infections; Z82.5 Family history of asthma and other chronic lower respiratory diseases; Z80.8 Family history of malignant neoplasm of other organs or systems; Z83.3 Family history of diabetes mellitus; Z82.49 Family history of ischemic heart disease and other diseases of the circulatory system; Z86.010 Personal history of colon polyps; Z79.899 Other long term (current) drug therapy; Z79.84 Long term (current) use of oral hypoglycemic drugs; Z68.34 Body mass index [BMI] 34.0-34.9, adult

== ENCOUNTER 2018-11-09 20:25 | Inpatient (IN) | payer OTHER, MEDICAID ==
[~2018-11-09] VITALS: Ht 187.9 cm; Wt 116.3 kg
--- NOTE | ~2018-11-09 | PR ---
[place], [place] PROGRESS NOTE [id number] #: [id number] ROOM: 522 DOCTOR: JESSICA MOYER MD BIRTHDATE: [birth year] DOS: SUBJECTIVE: The patient is doing well. He did have the I and D yesterday by Dr. Noyola and the plan is to have a wound VAC. OBJECTIVE: VITAL SIGNS: Graphic trend shows a pressure of 110/59, pulse of 93, respirations 20, temperature 97.7. LUNGS: Clear. HEART: Regular. ABDOMEN: Obese. Colostomy in place. The dressings were undone, large packing noticed in the abdominal wall. There is no drainage from the site. LABORATORY DATA: Wound culture showing moderate gram-negative bacteria which we do not have the identification yet. White cell count is down to 11.1. ASSESSMENT AND PLAN: 1. Abscess of abdominal wall, status post I and D, on IV antibiotics. Discussed with Olga from case management. The patient may benefit from a short-term placement to see will need to be on IV antibiotics, wound care as well as a wound VAC. I do not think the insurance will pay for wound VAC at home. 2. Type 2 diabetes mellitus. Blood sugars controlled. 3. Chronic pain syndrome, on multiple medications. No changes made. JESSICA MOYER MD CM:PNTRANS [id number] JESSICA MOYER MD 11/12/18 1034 interface
--- NOTE | ~2018-11-09 | WRIGHTHP ---
[place], [place] PATIENT HISTORY AND PHYSICAL EXAM NAME: CLARE KUMARI [facility] #: [id number] UNIT #: [id number] ROOM: 522 DOCTOR: JESSICA MOYER MD BIRTHDATE: [birth year] DOS: 11/09/2018 HISTORY OF PRESENT ILLNESS: This patient is well known to us. He was admitted to the hospital in 08/2018, with a colovesical fistula and was transferred to [facility]. He was there for close to two months. He was just released on Sunday, noticed increasing redness and swelling of the abdominal wall, so he came back to the Emergency Room. He denies having any chest pains or palpitations. Does not have any fever or chills, does not have any nausea and emesis. PAST MEDICAL HISTORY: Significant for; 1. Colovesical fistula, which has been repaired. 2. Colostomy with history of CA colon. 3. Factor V Leiden mutation. 4. Type 2 diabetes mellitus. 5. COPD. 6. Chronic pain. 7. Major depression, recurrent, mild. 8. Non-Hodgkin's lymphoma in 2004. MEDICATIONS: Eliquis 5 b.i.d., atorvastatin 10 daily, Bumex 2 mg daily, gabapentin 900 t.i.d., glipizide 10 daily, Dilaudid 4 mg every 3 hours, lisinopril 5 daily, metoprolol 25 daily, morphine 30 b.i.d., omeprazole 20 b.i.d., Seroquel 25 b.i.d., Daliresp 500 mcg daily, Januvia 100 daily, venlafaxine 75 daily, Levemir 20 at bedtime, insulin sliding scale. SOCIAL HISTORY: Nonsmoker. Does not use any alcohol. PHYSICAL EXAMINATION: GENERAL: He is awake and alert and oriented. VITAL SIGNS: Graphic trend shows a blood pressure of 132/70, pulse of 76, respirations 14, afebrile. LUNGS: Diminished breath sounds, clear. HEART: Regular. ABDOMEN: Obese with colostomy in place. Surgical site seems healed up, but there is significant redness around the area with induration suggestive of possibly mild early abscess. ASSESSMENT AND PLAN: 1. A 53-year-old presents with redness and swelling of his abdominal wall with lactic acid elevation, possible early sepsis with cellulitis. The patient is ordered IV antibiotics and IV fluids. 2. Possibility of abscess is being raised on clinical exam this morning, so CT of the abdomen and pelvis will be ordered. C-reactive protein is 4.85 and the ESR has not been done, so this needs to be rechecked. A consultation with Surgery is obtained. 3. Factor V Leiden mutation. Restart his home medication. 4. Type 2 diabetes mellitus, insulin-dependent, controlled. Medications have been ordered. [place], [place] PATIENT HISTORY AND PHYSICAL EXAM [facility]: [id number] UN[facility] #: [id number] ROOM: 522 DOCTOR: JESSICA MOYER MD BIRTHDATE: [birth year] JESSICA MOYER MD CM:HISPHYS:PATIENT HISTORY AND PHYSICAL EXAMINATION [id number] JESSICA MOYER MD 11/10/18 1008 interface
--- NOTE | ~2018-11-09 | PROC NOTE ---
[place], [place] PROCEDURE NOTE NAME: CLARE KUMARI [facility] #: [id number] UNIT #: [id number] ROOM: 522 DOCTOR: EDUARDO NOYOLA MD BIRTHDATE: [birth year] DOS: 11/11/2018 PREOPERATIVE DIAGNOSIS: Abdominal wall abscess. POSTOPERATIVE DIAGNOSIS: Abdominal wall abscess. PROCEDURE: Incision and drainage of abdominal wall abscess. SURGEON: Eduardo Noyola MD CERTIFIED SCRUM MASTER: DYLAN. ANESTHESIA: MAC. INDICATIONS: This is a 53-year-old gentleman who is here for an incision and drainage of an abdominal wall abscess. The procedure and its complications were explained to the patient in detail. He agreed to proceed. DESCRIPTION OF PROCEDURE: After identifying the patient, the patient was brought to the operating suite. IV sedation was administered and a time-out procedure was called. Parts were then painted and draped in the usual sterile fashion. Incision was marked and local anesthesia (1% plain lidocaine) was injected. Incision was made and the abscess cavity was entered. The specimen of the pus was sent for culture and sensitivity. After all the pus was drained, saline was used for irrigation and the abscess cavity was then packed with the help of a Kerlix pack. Dressing was placed. The patient tolerated the procedure well and was brought back to the recovery in a sterile fashion. There were no complications. Dr. Eduardo Noyola, the attending surgeon, was present throughout the operating case. Eduardo Noyola MD CM:PROCNOTE:PROCEDURE NOTE [id number] EDUARDO NOYOLA MD
--- NOTE | ~2018-11-09 | PR ---
[place], [place] PROGRESS NOTE NAME: [facility]I [facility] [id number] UNIT #: [id number] ROOM: 522 DOCTOR: JESSICA MOYER MD BIRTHDATE: [birth year] DOS: SUBJECTIVE: The patient is about the same. Appreciate Dr. Noyola's input. OBJECTIVE: VITAL SIGNS: Graphic trend shows a pressure of 116/64, pulse of 109, respirations 17, temperature 98.8. LUNGS: Diminished breath sounds, clear. HEART: Regular. ABDOMEN: Obese. Colostomy in place. The abscess in the middle of the abdominal wall seems to be draining slowly. The cellulitis around that site seems to be a little bit better. LABORATORY DATA: ESR and CRP indeed quite high. ESR is 80. CRP 4.48. CT of the abdomen and pelvis shows a large abscess in the anterior abdominal wall next to the colostomy bag. Wound cultures, no bacterial growth. ASSESSMENT AND PLAN: 1. Abscess post-surgery. The patient is awaiting I and D by Dr. Noyola this morning. 2. History of carcinoma of colon with colovesical fistula, which has been corrected. 3. Chronic pain, already on multiple medications, no changes have been made. JESSICA MOYER MD CM:PNMARY JANE [phone] JESSICA MOYER MD 11/12/18 0312 interface
--- NOTE | ~2018-11-09 | DS ---
[place], [place] DISCHARGE SUMMARY NAME: CLARE KUMARI [facility] #: [id number] UNIT #: [id number] ROOM: 522 DOCTOR: JESSICA MOYER MD BIRTHDATE: [birth year] DOS: 11/13/2018 DIAGNOSES: 1. ESBL escherichia coli of the wound. 2. Abscess, abdominal wall, status post incision and drainage Dr. Noyola. 3. Colovesical fistula, status post repair. 4. History of colectomy for cancer of colon. 5. Factor V Leiden mutation. 6. Chronic pain. 7. Type 2 diabetes mellitus. 8. Chronic obstructive pulmonary disease. 9. Major depression, mild, recurrent. 10. Non-Hodgkin lymphoma by history in 2004. MEDICATIONS ON DISCHARGE: Meropenem 1 g IV q. 8 hours, Eliquis 5 b.i.d., atorvastatin 10 daily, Daliresp 500 mcg daily, Januvia 100 daily, Levemir 20 units at bedtime, omeprazole 20 b.i.d., Seroquel 25 q. 6 hours, venlafaxine 75 daily, insulin sliding scale, albuterol 2 puffs q. 6 hours p.r.n. shortness of breath, lisinopril 5 daily, morphine 30 b.i.d., gabapentin 900 t.i.d., glipizide 10 daily, Bumex 2 mg daily, metoprolol 25 daily, oxycodone 10 q. 4 hours p.r.n. for pain. HOSPITAL COURSE: This patient is 53 years old, known to us from multiple admissions in the past. He was admitted to a tertiary care center for colovesical fistula repair. After that, he went to a retirement and he just got back to the home last Sunday. He comes in with complaints of swelling and pain and redness of the abdominal wall. He was diagnosed with an abscess of the abdominal wall with some localized cellulitis and was admitted. A CT of the abdomen and pelvis showed 16.7 x 9 x 14.4 abscess collection in the anterior abdominal wall. Dr. Noyola was consulted. Blood cultures were performed. These have come back negative. Dr. Noyola did take him for surgery, I and D was performed, and the wound has been cleaned out and is a allowed to heal with routine packing. The patient is overall stable and improving. The wound cultures have grown ESBL E. coli for which the patient will be started on meropenem. The patient is relatively stable and is not having any new complaints. Initially there was a question of him going back to a local retirement, but we have decided to send him home with visiting nurses and wound care and follow with the wound clinic. Discharge medications will be as above. I gave him 18 tablets of oxycodone till he sees Dr. Gross as an outpatient. [place], [place] DISCHARGE SUMMARY NAME: CLARE KUMARI UNIT #: [id number] ROOM: 522 DOCTOR: JESSICA MOYER MD BIRTHDATE: [birth year] JESSICA MOYER MD CM:DISCHARG [id number] JESSICA MOYER MD 11/13/18 1038 interface
--- NOTE | ~2018-11-09 | PR ---
[place], [place] PROGRESS NOTE NAME: CLARE KUMARI UNIT #: [id number] ROOM: 522 DOCTOR: JESSICA MOYER MD BIRTHDATE: [birth year] DOS: 11/13/2018 SUBJECTIVE: The patient is doing well, does not have any complaints. OBJECTIVE: VITAL SIGNS: Graphic trend shows a pressure of 122/62, pulse of 100, respirations 20, temperature 98.3. LUNGS: Clear. HEART: Regular. ABDOMEN: Obese. EXTREMITIES: Without any edema. ASSESSMENT AND PLAN: 1. Extended-spectrum beta-lactamase Escherichia coli, on IV meropenem. 2. Abscess, abdominal wall, status post I and D. The patient to go home on IV antibiotics. PICC line will be placed. Visiting nurses have been consulted for wound care. JESSICA MOYER MD CM:PNTRANS [phone] JESSICA MOYER MD 11/13/18 1635 interface
[~2018-11-09 20:25] MED LIST changes: +DILAUDID4 MG PO; +METOPROLOL SUCC25 M2 PO; +MS CONTIN30 MG PO; +NEURONTIN800 MG PO
[2018-11-09 20:26] VITALS: BP 128/71
[2018-11-09 22:22] LABS: BASO # 0.1 10*3/uL (0.0-0.1); BASO % 0.7 % (0.0-1.0); EOS # 0.6 10*3/uL (0.0-0.4); EOS % 3.4 % (1.0-4.0); HEMATOCRIT 29.7 % (42.0-52.0); HEMOGLOBIN 9.3 g/dl (14.0-18.0); LYMPH # 3.5 10*3/uL (1.3-4.4); LYMPH % 20.8 % (27.0-41.0); MEAN CELL VOLUME 77.7 fl (80.0-94.0); MEAN CORPUSCULAR HGB 24.3 pg (27.0-31.0); MEAN CORPUSCULAR HGB CONC 31.3 g/dl (33.0-37.0); MEAN PLATELET VOLUME 9.7 fl (9.6-12.3); MONO # 1.4 10*3/uL (0.1-1.0); NEUT # 11.1 10*3/uL (2.3-7.9); NEUT % 65.9 % (47.0-73.0); PLATELET COUNT AUTOMATED 614 10*3/uL (130-400); RED BLOOD COUNT 3.82 10*6/uL (4.50-5.90); RED CELL DISTRI WIDTH 14.6 % (0-14.5); WHITE BLOOD COUNT 16.8 10*3/uL (4.8-10.8)
--- NOTE | 2018-11-09 22:27 | NUR ---
LAB CALLED WITH LACTIC LEVEL OF 2.2. NOTIFIED.
[2018-11-09 22:45] VITALS: BP 126/58
[2018-11-09 22:49] LABS: ALBUMIN 2.9 gm/dl (3.1-4.5); ALKALINE PHOSPHATASE 134 U/L (45-117); BUN 14 mg/dl (7-24); CHLORIDE 95 mmol/L (98-107); CREATININE 1.16 mg/dL (0.70-1.30); LIPASE 189 U/L (73-393); POTASSIUM 3.7 mmol/L (3.5-5.1); SGOT/AST 11 IU/L (3-35); SGPT/ALT 18 U/L (12-78); SODIUM 131 mmol/L (136-145); TOTAL PROTEIN 7.4 gm/dL (6.4-8.2)
[2018-11-10 00:40] VITALS: BP 132/70
[2018-11-10 01:00] VITALS: BP 110/63
--- NOTE | 2018-11-10 01:00 | NUR ---
Time: A 53 year old M admitted to 5E under services of DR. COMFORT KUMAR,JESSICA. Pt. arrived via bed from ER. Chief complaint: CELLULITIS ABDOMINAL WALL. GALINA MARAVILLA
[2018-11-10 08:00] VITALS: BP 128/66
--- NOTE | 2018-11-10 08:32 | NUR ---
DR CANTU HERE TO SEE PATIENT. ORDERED CT ABD/PELVIS WITH CONTRAST.
[2018-11-10 12:00] VITALS: BP 123/59
[2018-11-10 16:00] VITALS: BP 133/71
--- NOTE | 2018-11-10 18:00 | NUR ---
PATIENT HAS REQUESTED THAT DR CANTU BE THE ONE WHO PERFORMS HIS SURGERY. DR CANTU AWARE.
[2018-11-10 20:00] VITALS: BP 114/73; BP 126/78
[2018-11-11] VITALS (10 sets, daily range): BP systolic 106–133; BP diastolic 47–72
--- NOTE | 2018-11-11 01:29 | NUR ---
CALLED TO ROOM, PATIENT C/O PAIN TO INCISION RATING AN 8. PATIENT STATES "I GUESS I NEED IV, I'M NPO." MEDICATED WITH DILAUDID IV PER PRN ORDER, SEE EMAR. CALL LIGHT WITHIN REACH. WILL MONITOR FOR EFFECTIVENESS
--- NOTE | 2018-11-11 07:30 | NUR ---
ASSUMED CARE OF PATIENT AT THIS TIME. RECEIVED THOROUGH REPORT FROM MONROE PARISI. PATIENT AWAKE, ALERT, AND ORIENTED SITTING UP IN HIS BED. NO S/S OF DISTRESS, RESP EASY. CALL LIGHT WITHIN REACH.
--- NOTE | 2018-11-11 08:04 | NUR ---
PATIENT NPO FOR POSSIBLE PROCEDURE WITH DR CANTU TODAY. HOLDING ALL AM MEDICATIONS.
--- NOTE | 2018-11-11 09:00 | NUR ---
Medical Record Librarian in to talk to patient. Patient states lives at home alone with his family and his girlfriend checking in on him. There are 0 steps in the home. Physician: Dr. Federico Gross [facility]acy: [facility] Home health services: [facility] RN currently Patient's level of ADLs: INDEPENDENT Patient has working utilities: yes DME: O2 @ 2-3L nc, portable O2 tanks, nebulizer, O2 supplier [employer] Follow-up physician's appointment after d/c: he prefers to make his own follow up appt after discharge Does patient want to access PORTAL?: no Discharge plan discussed with patient. He lives at home alone with his family and girlfriend checking in on him. He is independent in his ADLs and ambulation. Discussed home health care services and he currently has a [facility] RN and would like to continue their services upon discharge. He states he was in [facility] from October 07 or 30 days then he went to [facility]. He was discharged from [place] last Sunday with a [facility] RN. When medically stable he will be discharged to home. His girlfriend will transport on discharge. PATRICK MULLER
--- NOTE | 2018-11-11 09:40 | NUR ---
PATIENT RECEIVED DILAUDID FOR C/O PAIN IN ABDOMEN.
--- NOTE | 2018-11-11 09:46 | NUR ---
CLARE KUMARI [id number] Please refer to the physician's history and physical for past medical history, comorbid conditions, and allergies. Diagnosis: CELLULITIS, ABDOMINAL WALL Jesus Score: 21,LOW OR NO RISK WOUND DESCRIPTIONS: Location of the wound: middle of lower abdomen Type of wound: surgical (abscess) Thickness: Full Size: 4.5cm x 2.5cm x 0.1cm Tunneling: none Undermining: none Sinus Tract: none Presence of Exudate: Serosanguineous Amount: Moderate Color: Red Odor: None Periwound Skin Appearance: Erythema, warmth Wound edges: approximated Pain (associated with wound): none at time of assessment How does patient state this happened? pt stated this started back last Novemeb and his most recent surgery was with Dr. Tray Tolentino who is his oncologist who did his surgery last month at [facility] and he had a fistula removed, bladder repair and another colon resection. Location of the wound: middle lower abdomen under pannus toward right side Thickness: Full Size: 0.5cm x 0.7cm x 0.1cm Tunneling: none Undermining: none Sinus Tract: none Presence of Exudate: Serosanguineous Amount: Moderate Color: Red Odor: None Periwound Skin Appearance: Erythema Wound edges: approximated Pain (associated with wound): none at time of assessment How does patient state this happened? patient stated that he believes it was from a CELESTINE drained. Patient is unsure who he wants to follow up with when he is discharged for wound care at this time. Surface the patient is resting on: Isoflex SKIN PREVENTION RECOMMENDATION: 1. Pressure redistribution support surface as appropriate 2. Elevate heels 3. Remove boots/TEDS every shift and reapply 4. Head of bed 30 degrees as tolerated 5. Assess nutrition and hydration 6. Manage moisture 7. Avoid the use of containment devices while in bed 8. Use absorptive products on surfaces limit layers of linens on bed 9. Turn and reposition every 1-2 hours in bed and every 1 hour in chair as tolerated 10. Weight shifts every 15 minutes while up in chair 11. Offloading with pillows or device to keep heels elevated off bed 12. Monitor skin at least every shift 13. Inspect under medical devices twice a day WOUND TREATMENT RECOMMENDATIONS: Await wound care orders after surgery with Dr. Noyola.
--- NOTE | 2018-11-11 12:37 | NUR ---
PATIENT CURRENTLY OFF FLOOR FOR SURGERY.
--- NOTE | 2018-11-11 20:48 | NUR ---
MEDICATED WITH DILAUDID FOR C/O ABDOMINAL PAIN RATED A 7/10.
--- NOTE | 2018-11-11 21:00 | NUR ---
DRESSING CHANGED AT THIS TIME DUE TO BEING SATURATED WITH BLOOD.
--- NOTE | 2018-11-11 21:45 | NUR ---
RESTING IN BED WITH EYES CLOSED. VOICES NO C/O AT THIS TIME. DILAUDID GIVEN EARLIER APPARENTLY EFFECTIVE.
[2018-11-12] VITALS: BP 116/63
--- NOTE | 2018-11-12 04:55 | NUR ---
PATIENT C/O ABDOMINAL PAIN, MEDICATED WITH PO PRN DILAUDID AT THIS TIME PER ORDERS, WILL MONITOR FOR MEDICATION EFFECTIVENESS. BED IN LOWEST/LOCKED POSITION WITH SIDERAILS UP X2 FOR SAFETY AND CALL LIGHT IS WITHIN REACH.
[2018-11-12 06:12] LABS: BASO # 0.1 10*3/uL (0.0-0.1); BASO % 0.6 % (0.0-1.0); EOS # 0.6 10*3/uL (0.0-0.4); EOS % 5.1 % (1.0-4.0); HEMATOCRIT 29.8 % (42.0-52.0); LYMPH # 4.6 10*3/uL (1.3-4.4); LYMPH % 41.5 % (27.0-41.0); MEAN CELL VOLUME 79.7 fl (80.0-94.0); MEAN CORPUSCULAR HGB 24.1 pg (27.0-31.0); MEAN CORPUSCULAR HGB CONC 30.2 g/dl (33.0-37.0); MEAN PLATELET VOLUME 9.4 fl (9.6-12.3); MONO # 0.8 10*3/uL (0.1-1.0); MONO % 7.4 % (3.0-9.0); NEUT # 4.9 10*3/uL (2.3-7.9); NEUT % 44.5 % (47.0-73.0); PLATELET COUNT AUTOMATED 545 10*3/uL (130-400); RED BLOOD COUNT 3.74 10*6/uL (4.50-5.90); RED CELL DISTRI WIDTH 14.9 % (0-14.5); WHITE BLOOD COUNT 11.1 10*3/uL (4.8-10.8)
[2018-11-12 06:40] LABS: BUN 13 mg/dl (7-24); CHLORIDE 103 mmol/L (98-107); CREATININE 0.83 mg/dL (0.70-1.30); POTASSIUM 3.8 mmol/L (3.5-5.1); SODIUM 139 mmol/L (136-145)
--- NOTE | 2018-11-12 07:01 | NUR ---
BLOOD SUGAR 139.
[2018-11-12 08:00] VITALS: BP 110/59
--- NOTE | 2018-11-12 11:00 | NUR ---
Garbage Pick Up Man in to see patient. He states he doesn't want to go to [facility] now because he will have the wound vac. He wants to go home with [facility] for home health. He states the nurse showed him how to take care of his dressing and how to change it daily. When medically stable he will be discharged to home with a [facility] RN.
[2018-11-12 12:00] VITALS: BP 105/68
--- NOTE | 2018-11-12 12:54 | NUR ---
CLARE KUMARI [id number] Please refer to the physician's history and physical for past medical history, comorbid conditions, and allergies. Diagnosis: CELLULITIS, ABDOMINAL WALL Jesus Score: 21,LOW OR NO RISK WOUND DESCRIPTIONS: (follow up) Location of the wound: middle of lower abdomen Type of wound: surgical (abscess) Thickness: Full Size: 5.0cm x 2.5cm x 5.9cm Tunnelin.4cm at 1'clock and 6.2cm at 9 o'clock Undermining: none Sinus Tract: none Presence of Exudate: Sanguineous Amount: Heavy Color: Red Odor: None Periwound Skin Appearance: Normal Wound edges: approximated Pain (associated with wound): tender to touch How does patient state this happened? pt is post op day one Dr. Noyola spoke with this nurse about wound care recommendations for wound vac this nurse spoke with Dr. Noyola regarding wound vac and other dressing change options he stated since we aren't using the wound vac that patient can follow up in his office and wound care dressing orders were received. Surface the patient is resting on: Isoflex SKIN PREVENTION RECOMMENDATION: 1. Pressure redistribution support surface as appropriate 2. Elevate heels 3. Remove boots/TEDS every shift and reapply 4. Head of bed 30 degrees as tolerated 5. Assess nutrition and hydration 6. Manage moisture 7. Avoid the use of containment devices while in bed 8. Use absorptive products on surfaces limit layers of linens on bed 9. Turn and reposition every 1-2 hours in bed and every 1 hour in chair as tolerated 10. Weight shifts every 15 minutes while up in chair 11. Offloading with pillows or device to keep heels elevated off bed 12. Monitor skin at least every shift 13. Inspect under medical devices twice a day WOUND TREATMENT RECOMMENDATIONS: Follow Dr. Noyola wound care orders.
--- NOTE | 2018-11-12 13:01 | NUR ---
PATIENT RECEIVED ORAL DILAUDID FOR PAIN RATED 7/10 IN ABDOMEN.
--- NOTE | 2018-11-12 13:18 | NUR ---
CRISTINA made a referral to [facility] for pt with wound vac care. SW was told that pt had changed his mind and is not going to [facility]. CRISTINA helen Jacqueline at [facility] to request a cancellation of services per patient's wishes. XIAO Fleming ENVIRONMENTAL SAFETY SPECIALIST,PIG FURNACE OPERATOR
[2018-11-12 16:00] VITALS: BP 109/60
--- NOTE | 2018-11-12 16:35 | NUR ---
PATIENT RECEIVED DILAUDID FOR PAIN IN ABDOMEN RATED 7/10.
[2018-11-12 20:00] VITALS: BP 113/65
--- NOTE | 2018-11-12 20:00 | NUR ---
AAOX3 RESTING IN BED. PT. VOICES NO C/O AT THIS TIME. NO DISTRESS NOTED. CALL LIGHT WITHIN REACH.
--- NOTE | 2018-11-12 23:30 | NUR ---
PT. REQUESTED SEROQUEL EARLIER IN SHIFT. INFORMED HIM THAT IT WAS SCHEDULED EVERY 6 HOURS. PT. STATES THAT HE TAKES IT NEEDED AT HOME & WOULD LIKE FOR IT TO BE CHANGED. INFORMED PATIENT THAT I WOULD PASS IT ON TO RN IN AM DURING REPORT. PT. VERBALIZED UNDERSTANDING.
[2018-11-13] VITALS: BP 122/62
--- NOTE | 2018-11-13 02:56 | NUR ---
MEDICATED WITH PO DILAUDID PER PT'S REQUEST FOR ABDOMINAL PAIN.
--- NOTE | 2018-11-13 06:00 | NUR ---
AROUSES EASILY FOR BLOOD SUGAR. VOICES NO C/O AT THIS TIME. DILAUDID GIVEN EARLIER APPARENTLY EFFECTIVE. CALL LIGHT WITHIN REACH.
[2018-11-13 08:00] VITALS: BP 121/68
[2018-11-13] MEDS ORDERED: OXYCODONE HCL10 M1 PO (08:09)
[2018-11-13] MEDS ORDERED: MEROPENEM1 G1 IV (08:21)
--- NOTE | 2018-11-13 08:40 | NUR ---
Notified Dr. Clinton that pt has mediport. States to give first dose of meropenem prior to dc to make sure pt is not allergic, then ok to dc after antibiotics at home arranged.
--- NOTE | 2018-11-13 09:40 | NUR ---
Social Sciences Instructor in to see patient. Discussed IV antibiotics and he is agreeable. He states he has given IV antibiotics to himself before when he was discharged from [facility]. He has a right chest wall mediport.
--- NOTE | 2018-11-13 09:53 | NUR ---
Faxed Merrem prescription to [facility]. Awaiting response.
--- NOTE | 2018-11-13 10:41 | NUR ---
[facility]
--- NOTE | 2018-11-13 10:50 | NUR ---
Pictures taken of wound and redressed per orders.
--- NOTE | 2018-11-13 11:05 | NUR ---
Spoke to Nellie at [facility] regarding patient discharging today. They have 5 approved visits through [place] and they have admitted him previous to his admission here which took 1 day. Faxed additional clinical information regarding dressing changes, discharge summary, and ICD 10 code for Merrem (Z16.12) for ESBL urine. She states there could be a lapse in coverage due to having to ask for more days. Patient is able to give his own IV antibiotics as he has done this previously and he states the wound care nurse did show him how to properly change his dressing. When IV antibiotics are set up he will be discharged to home with [facility] who will start services tomorrow.
--- NOTE | 2018-11-13 11:15 | NUR ---
Spoke to Devorah at [facility] regarding home IV antibiotics. She is awaiting the test claim and will return call as soon as she knows his coverage. Awaiting return call.
[2018-11-13 12:00] VITALS: BP 119/59
--- NOTE | 2018-11-13 12:03 | NUR ---
Spoke to Devorah from [facility]. Patient has an 80/20 and about a $2000 deductible to meet. Informed Devorah of discharge today and needing his home IV dose of Merrem tonight at 10pm. Devorah verbalized an understanding and asked what home health company was going to be seeing him. Informed [employer] [facility]. Discussed with patient his 80/20 for his IV antibiotics and [facility] billing his insurance company. Patient verbalized an understanding. Informed patient he should get his 2pm dose here before being discharged and he agreed and verbalized an understanding.
--- NOTE | 2018-11-13 13:53 | NUR ---
Discharge instructions reviewed with patient. Patient receptive and verbalizes understanding. Follow-up care arranged. Written instructions given to patient. BRUNILDA SOUSA
--- NOTE | 2018-11-13 14:13 | NUR ---
Pt requesting dressing change supplies for home use. Dressing is a daily change and was changed earlier this morning. I explained to pt that visiting nurses would be coming tomorrow for dressing changes. Pt states that they do not bring supplies on intake. I asked pt how they would change dressings if they did not bring supplies. Pt states he had no idea but he was under the impression that hospital supplies all supplies for home use. States he is spending a lot of money to be here and it is unacceptable that we are not sending home supplies. I told him I could send him with enough supplies for tomorrows dressing change and I could have his casework supervisor come and speak with him regarding this issue. Pt states he does not have time to talk to anyone right now but he will be calling hospital administration when he gets home. Pt left in care of girlfriend with belongings. I notified nursing telemarketing supervisor Nicole Villatoro of interaction with pt.
[2018-12-22] MEDS ORDERED: ZYVOX600 MG PO (07:38)
[2019-01-03] MEDS ORDERED: ZITHROMAX250 MG PO (19:22)
[2019-01-05] MEDS ORDERED: BUSPIRONE10 MG PO (14:04)
[2019-01-05] MEDS ORDERED: REQUIP0.5 MG PO (14:04)
[2019-01-14] MEDS ORDERED: ZOSYN 4.54.5 GM/100 IV (10:25)
[2019-01-15] MEDS ORDERED: MEDROL DOSEPAK4 MG PO (10:14)
[2019-03-16] MEDS ORDERED: VIBRAMYCIN100 MG PO (17:17)
[2019-03-16] MEDS ORDERED: DELTASONE20 M1 PO (17:17)
== END 2018-11-13 13:53 | disposition home health service (06) | DRG 580 ==
LOC: ED 20:25 → EDHOLD 23:01 → 5E 23:01
PROVIDERS: Emergency Medicine Emergency Medical Services; ADMIT Internal Medicine
PROC: 0J980ZZ Drainage of Abdomen Subcutaneous Tissue and Fascia, Open Approach (ICD-10-PCS; principal; 2018-11-11)
DX: L02.211 Cutaneous abscess of abdominal wall (principal); F33.0 Major depressive disorder, recurrent, mild; D68.51 Activated protein C resistance; N39.0 Urinary tract infection, site not specified; L03.311 Cellulitis of abdominal wall; E11.9 Type 2 diabetes mellitus without complications; J44.9 Chronic obstructive pulmonary disease, unspecified; F41.9 Anxiety disorder, unspecified; J45.909 Unspecified asthma, uncomplicated; I50.9 Heart failure, unspecified; K21.9 Gastro-esophageal reflux disease without esophagitis; E78.5 Hyperlipidemia, unspecified; G89.4 Chronic pain syndrome; I11.0 Hypertensive heart disease with heart failure; G43.909 Migraine, unspecified, not intractable, without status migrainosus; B96.20 Unspecified Escherichia coli [E. coli] as the cause of diseases classified elsewhere; Z16.12 Extended spectrum beta lactamase (ESBL) resistance; E66.9 Obesity, unspecified; Z85.72 Personal history of non-Hodgkin lymphomas; Z85.038 Personal history of other malignant neoplasm of large intestine; Z88.6 Allergy status to analgesic agent; Z88.1 Allergy status to other antibiotic agents; Z88.8 Allergy status to other drugs, medicaments and biological substances; Z86.010 Personal history of colon polyps; Z86.718 Personal history of other venous thrombosis and embolism; Z82.49 Family history of ischemic heart disease and other diseases of the circulatory system; Z83.3 Family history of diabetes mellitus; Z80.8 Family history of malignant neoplasm of other organs or systems; Z79.4 Long term (current) use of insulin; Z79.899 Other long term (current) drug therapy; Z68.33 Body mass index [BMI] 33.0-33.9, adult

== ENCOUNTER 2018-11-19 23:12 | Emergency (ER) | payer OTHER, MEDICAID ==
[~2018-11-19] VITALS: Ht 187.9 cm; Wt 113.4 kg
[~2018-11-19 23:12] MED LIST changes: +MEROPENEM1 G1 IV
[2018-11-19 23:48] LABS: HEMATOCRIT 33.2 % (42.0-52.0); HEMOGLOBIN 10.2 g/dl (14.0-18.0); MEAN CELL VOLUME 76.1 fl (80.0-94.0); MEAN CORPUSCULAR HGB 23.4 pg (27.0-31.0); MEAN CORPUSCULAR HGB CONC 30.7 g/dl (33.0-37.0); MEAN PLATELET VOLUME 9.6 fl (9.6-12.3); PLATELET COUNT AUTOMATED 461 10*3/uL (130-400); RED BLOOD COUNT 4.36 10*6/uL (4.50-5.90); RED CELL DISTRI WIDTH 15.1 % (0-14.5); WHITE BLOOD COUNT 14.8 10*3/uL (4.8-10.8)
[2018-11-20 00:05] LABS: ALBUMIN 3.4 gm/dl (3.1-4.5); ALKALINE PHOSPHATASE 135 U/L (45-117); BUN 17 mg/dl (7-24); CHLORIDE 101 mmol/L (98-107); POTASSIUM 3.5 mmol/L (3.5-5.1); SGOT/AST 12 IU/L (3-35); SGPT/ALT 24 U/L (12-78); SODIUM 137 mmol/L (136-145); TOTAL PROTEIN 7.8 gm/dL (6.4-8.2)
[2018-11-20 00:18] LABS: PLATELET SUFFICIENCY HIGH (NORMAL); TOTAL CELLS COUNTED 100 #CELLS
[2018-11-20] MEDS ORDERED: ZOFRAN4 MG PO (00:31)
[2018-11-20 00:49] VITALS: BP 132/72
[2018-12-22] MEDS ORDERED: ZYVOX600 MG PO (07:38)
[2019-01-03] MEDS ORDERED: ZITHROMAX250 MG PO (19:22)
[2019-01-05] MEDS ORDERED: BUSPIRONE10 MG PO (14:04)
[2019-01-05] MEDS ORDERED: REQUIP0.5 MG PO (14:04)
[2019-01-14] MEDS ORDERED: ZOSYN 4.54.5 GM/100 IV (10:25)
[2019-01-15] MEDS ORDERED: MEDROL DOSEPAK4 MG PO (10:14)
[2019-03-16] MEDS ORDERED: DELTASONE20 M1 PO (17:17)
[2019-03-16] MEDS ORDERED: VIBRAMYCIN100 MG PO (17:17)
== END 2018-11-20 01:39 | disposition home or self-care (01) ==
LOC: ED 23:12
PROVIDERS: Nurse Practitioner Family
DX: R11.0 Nausea (principal); R68.83 Chills (without fever); R10.9 Unspecified abdominal pain; Z93.3 Colostomy status; Z88.8 Allergy status to other drugs, medicaments and biological substances; Z88.5 Allergy status to narcotic agent; Z88.4 Allergy status to anesthetic agent; Z88.6 Allergy status to analgesic agent; Z79.899 Other long term (current) drug therapy; Z79.84 Long term (current) use of oral hypoglycemic drugs; Z79.4 Long term (current) use of insulin

== ENCOUNTER 2019-03-11 10:53 | Emergency (ER) | payer OTHER ==
[~2019-03-11] VITALS: Ht 187.9 cm; Wt 122.5 kg
--- NOTE | ~2019-03-11 | EKG ---
[place], [place] ELECTROCARDIOGRAM REPORT NAME: CLARE KUMARI UNIT #: [id number] ROOM: DOCTOR: EPIPHRAFI DRAFT REPORT BIRTHDATE: [birth year] [facility] Test Date: 2019-03-11 Test Time: 12:07:47 Pat Name: CLARE KUMARI Department: Room: Gender: Software Tester: Lula Beard : 1965 Requested By: GIULIA THAYER Order Number: [id number] Reading MD: Julia Caban Measurements Intervals [place] Rate: 81 P: 56 ME: 190 QRS: 11 QRSD: 106 T: 35 QT: 356 QTc: 414 Interpretive Statements Sinus rhythm Compared to ECG 01/09/2019 11:39:10 Sinus tachycardia no longer present Electronically Signed On 03-12-2019 8:04:35 PDT by Julia Caban CM:EKGRPT:ELECTROCARDIOGRAM REPORT [id number] GIULIA GAMBINO DRAFT REPORT GIULIA THAYER MD
[~2019-03-11 10:53] MED LIST changes: +BUSPIRONE10 MG PO; +REQUIP0.5 MG PO; +ZOFRAN4 MG PO; +ZOSYN 4.54.5 GM/100 IV; +ZYVOX600 MG PO
[2019-03-11 12:26] LABS: BASO # 0.1 10*3/uL (0.0-0.1); BASO % 0.5 % (0.0-1.0); EOS # 0.3 10*3/uL (0.0-0.4); EOS % 3.1 % (1.0-4.0); HEMATOCRIT 36.4 % (42.0-52.0); HEMOGLOBIN 10.7 g/dl (14.0-18.0); LYMPH # 3.3 10*3/uL (1.3-4.4); LYMPH % 32.8 % (27.0-41.0); MEAN CELL VOLUME 69.3 fl (80.0-94.0); MEAN CORPUSCULAR HGB 20.4 pg (27.0-31.0); MEAN CORPUSCULAR HGB CONC 29.4 g/dl (33.0-37.0); MEAN PLATELET VOLUME 9.8 fl (9.6-12.3); MONO # 0.9 10*3/uL (0.1-1.0); MONO % 8.9 % (3.0-9.0); NEUT # 5.3 10*3/uL (2.3-7.9); NEUT % 53.7 % (47.0-73.0); PLATELET COUNT AUTOMATED 385 10*3/uL (130-400); RED BLOOD COUNT 5.25 10*6/uL (4.50-5.90); RED CELL DISTRI WIDTH 20.1 % (0-14.5); WHITE BLOOD COUNT 9.9 10*3/uL (4.8-10.8)
[2019-03-11 12:37] LABS: ACT PARTIAL THROMBO TIME 26.3 SECONDS (20.0-32.1); INTERNATIONAL NORM RATIO 0.9 (2.0-3.5)
[2019-03-11 12:42] LABS: ALBUMIN 3.9 gm/dl (3.1-4.5); ALKALINE PHOSPHATASE 138 U/L (45-117); BUN 16 mg/dl (7-24); CHLORIDE 100 mmol/L (98-107); CREATININE 1.01 mg/dL (0.70-1.30); POTASSIUM 3.5 mmol/L (3.5-5.1); SGOT/AST 13 IU/L (3-35); SGPT/ALT 23 U/L (12-78); SODIUM 137 mmol/L (136-145); TOTAL PROTEIN 8.1 gm/dL (6.4-8.2)
[2019-03-11 12:47] LABS: TROPONIN I < 0.015 ng/ml (<0.045)
[2019-03-11 12:49] LABS: BILIRUBIN NEGATIVE (NEGATIVE); BLOOD NEGATIVE (NEGATIVE); CLARITY CLEAR (CLEAR); COLOR YELLOW (YELLOW); GLUCOSE NEGATIVE (NEGATIVE); KETONE NEGATIVE (NEGATIVE); LEUKO ESTERASE TRACE (NEGATIVE); NITRITE NEGATIVE (NEGATIVE); PH 6.5 (5.0-9.0); UROBILINOGEN 0.2 E.U./dl (0.2-1.0)
[2019-03-11 13:07] LABS: RBC 0-2 rbc/hpf (0-2); YEAST TRACE
[2019-03-11 13:14] VITALS: BP 107/63
[2019-03-16] MEDS ORDERED: VIBRAMYCIN100 MG PO (17:17)
[2019-03-16] MEDS ORDERED: DELTASONE20 M1 PO (17:17)
== END 2019-03-11 13:30 | disposition home or self-care (01) ==
LOC: ED 10:53
PROVIDERS: Emergency Medicine
DX: M54.5 Low back pain (principal); M54.6 Pain in thoracic spine; R10.9 Unspecified abdominal pain; R30.9 Painful micturition, unspecified; J44.9 Chronic obstructive pulmonary disease, unspecified; G89.29 Other chronic pain; I11.0 Hypertensive heart disease with heart failure; I50.9 Heart failure, unspecified; E78.5 Hyperlipidemia, unspecified; E11.9 Type 2 diabetes mellitus without complications; G43.909 Migraine, unspecified, not intractable, without status migrainosus; E66.9 Obesity, unspecified; Z88.8 Allergy status to other drugs, medicaments and biological substances; Z88.5 Allergy status to narcotic agent; Z88.1 Allergy status to other antibiotic agents; Z88.6 Allergy status to analgesic agent; Z79.899 Other long term (current) drug therapy; Z79.4 Long term (current) use of insulin; Z93.3 Colostomy status; Z68.30 Body mass index [BMI] 30.0-30.9, adult; Z86.73 Personal history of transient ischemic attack (TIA), and cerebral infarction without residual deficits

== ENCOUNTER 2019-03-16 23:34 | Inpatient (IN) | payer OTHER ==
[~2019-03-16] VITALS: Ht 187.9 cm; Wt 123.9 kg
--- NOTE | ~2019-03-16 | EKG ---
[place], [place] ELECTROCARDIOGRAM REPORT NAME: CLARE KUMARI UNIT #: [id number] ROOM: 530 DOCTOR: IMMANUEL DRAFT REPORT BIRTHDATE: [birth year] [facility] Test Date: 2019-03-17 Test Time: 02:49:15 Pat Name: CLARE KUMARI Department: Room: 530 Gender: M Blast Furnace Checker: : 1965 Requested By: RICARDO FATIMA Order Number: [id number] Reading MD: Julia Caban Measurements Intervals [place] Rate: 108 P: 74 VT: 181 QRS: 11 QRSD: 103 T: 23 QT: 337 QTc: 452 Interpretive Statements Sinus tachycardia Baseline wander in lead(s) II,III,aVF Compared to ECG 03/11/2019 12:07:47 Sinus rhythm no longer present Electronically Signed On 03-17-2019 12:02:14 PDT by Julia Caban CM:EKGRPT:ELECTROCARDIOGRAM REPORT [id number] RICARDO CARLIN DRAFT REPORT RICARDO FATIMA DO
--- NOTE | ~2019-03-16 | DS ---
[place], [place] DISCHARGE SUMMARY NAME: CLARE KUMARI ACC #: [id number] UNIT #: [id number] ROOM: 530 DOCTOR: JESSICA MOYER MD BIRTHDATE: [birth year] DOS: 03/19/2019 DIAGNOSES: 1. High-grade bowel obstruction for transfer to [facility]. 2. Chronic obstructive pulmonary disease with acute exacerbation. 3. Chronic urinary tract infections. 4. Factor V Leiden mutation, on long-term use of anticoagulants. 5. History of colovesical fistula repair. 6. History of colostomy for carcinoma colon. 7. Major depression. 8. Chronic pain syndrome. 9. Non-Hodgkin's lymphoma by history. INDICATION: A 53-year-old comes in with complaints of shortness of breath. HOSPITAL COURSE: The patient was admitted and was placed on IV steroids, breathing treatments, antibiotics. During the night, he developed acute abdominal pain. CT of the abdomen was done, which showed a high-grade obstruction. He had evidence of sepsis with lactic acidosis, was placed on IV fluids. Again, IV antibiotic was readjusted. Consultation was obtained from Dr. Tolentino in [facility]. Dr. Tolentino did accept the patient's care and was agreed on transfer. [facility] did not have any beds for 24 hours. The patient meanwhile continued with complaint of severe abdominal pain, was on maximal treatment plan, did get Dr. Torres to see him for a backup just in case some complication arose, but the patient refused to be seen by Dr. Torres. By 03/19/2019 afternoon, the patient was transferred to [facility] once a bed was available. Arrangements were also made for him to go to [facility] since we had trouble getting him to [facility], but before that arrangement could be completed, [facility] came through with the bed, so he was transferred to [facility]. [place], [place] DISCHARGE SUMMARY NAME: CLARE KUMARI UNIT #: [id number] ROOM: 530 DOCTOR: JESSICA MOYER MD BIRTHDATE: [birth year] JESSICA MOYER MD CM:DISCHARG [id number] JESSICA MOYER MD 03/31/19 1016 interface
--- NOTE | ~2019-03-16 | EKG ---
[place], [place] ELECTROCARDIOGRAM REPORT NAME: CLARE KUMARI UNIT #: [id number] ROOM: 530 DOCTOR: IMMANUEL DRAFT REPORT BIRTHDATE: [birth year] [facility] Test Date: 2019-03-17 Test Time: 05:08:42 Pat Name: CLARE KUMARI Department: Room: 530 Gender: M Commercial Parts Professional: Michelle Zarate : 1965 Requested By: RICARDO FATIMA Order Number: [id number] Reading MD: Julia Caban Measurements Intervals [place] Rate: 87 P: 58 DC: 180 QRS: 4 QRSD: 106 T: 17 QT: 353 QTc: 425 Interpretive Statements Sinus rhythm Baseline wander in lead(s) I,II,III,aVR,aVF,V5 Compared to ECG 03/11/2019 12:07:47 No significant changes Electronically Signed On 03-17-2019 12:02:34 PDT by Julia Caban CM:EKGRPT:ELECTROCARDIOGRAM REPORT [id number] 1202 RICARDO CARLIN DRAFT REPORT RICARDO FATIMA DO
--- NOTE | ~2019-03-16 | PR ---
[place], [place] PROGRESS NOTE NAME: CLARE KUMARI UNIT #: [id number] ROOM: 530 DOCTOR: JESSICA MOYER MD BIRTHDATE: [birth year] DOS: 03/19/2019 SUBJECTIVE: The patient was unable to go to [facility] even though accepted around 10:00 a.m. yesterday morning. Apparently, there were no beds available. The patient complains of continued abdominal pain, has grunting respirations. OBJECTIVE: VITAL SIGNS: Graphic trend shows a pressure of 132/73, pulse of 106, respirations 20, temperature 97.9. LUNGS: Diminished breath sounds. HEART: Regular. ABDOMEN: Obese. Colostomy has not had much output in it. Bowel sounds are hypoactive versus absent, again because of the grunting, it was difficult to hear. EXTREMITIES: Without any edema. LABORATORY DATA: No labs available because we do not expect the patient to stay here this long. ASSESSMENT AND PLAN: Acute bowel obstruction, high grade, was awaiting transfer to [facility] since [facility] is informed that it might take another 24 hours for him to go and because of a high-grade obstruction, I do not want to keep him any longer and we decided to send him to [facility], make arrangements for transfer today, called one call. NG tube will be reinserted. He refused to have it inserted yesterday, but he is agreeable this morning. Acute abdominal series is pending. JESSICA MOYER MD CM:PNTRANS [id number] JESSICA MOYER MD 03/19/19 0945 interface
--- NOTE | ~2019-03-16 | EKG ---
[place], [place] ELECTROCARDIOGRAM REPORT NAME: CLARE KUMARI UNIT #: [id number] ROOM: 530 DOCTOR: IMMANUEL DRAFT REPORT BIRTHDATE: [birth year] [facility] Test Date: 2019-03-16 Test Time: 23:41:48 Pat Name: CLARE KUMARI Department: Room: 530 Gender: M Beer Merchant: : 1965 Requested By: RICARDO FATIMA Order Number: [id number] Reading MD: Julia Caban Measurements Intervals [place] Rate: 114 P: 52 OR: 171 QRS: -1 QRSD: 105 T: 14 QT: 334 QTc: 461 Interpretive Statements Sinus tachycardia Baseline wander in lead(s) I,II,aVR Compared to ECG 03/11/2019 12:07:47 Sinus rhythm no longer present Electronically Signed On 03-17-2019 12:02:04 PDT by Julia Caban CM:EKGRPT:ELECTROCARDIOGRAM REPORT [id number] 1202 RICARDO CARLIN DRAFT REPORT RICARDO FATIMA DO
--- NOTE | ~2019-03-16 | WRIGHTHP ---
[place], [place] PATIENT HISTORY AND PHYSICAL EXAM NAME: CLARE KUMARI [facility] #: [id number] UNIT #: [id number] ROOM: 530 DOCTOR: JESSICA MOYER MD BIRTHDATE: [birth year] DOS: 03/17/2019 HISTORY OF PRESENT ILLNESS: The patient is 53 years old, very well known to us. The patient comes in with complaints of difficulty breathing. He denies having any chest pains or palpitations; thinks that his chronic obstructive pulmonary disease is acting up, so he decided to come into the Emergency Room. He came in the morning, was discharged on antibiotics and steroids, came back again at night and this time, he was admitted. He denies having any chest pains or palpitations. PAST MEDICAL HISTORY: Significant for: 1. COPD with repeated hospitalization for exacerbation. 2. Chronic UTIs. 3. Factor V Leiden mutation, on anticoagulants. 4. Colovesical fistula, status post repair. 5. History of colectomy, colostomy for CA colon. 6. Major depression, mild, recurrent. 7. Non-Hodgkin's lymphoma by history. 8. Steroid-induced hyperglycemia. MEDICATIONS: Medications that he is on currently will be Eliquis 5 b.i.d., atorvastatin 10 daily, Bumex 2 mg daily, BuSpar 10 b.i.d., gabapentin 900 t.i.d., glipizide 10 daily, lisinopril 5 daily, omeprazole 20 b.i.d., oxycodone 5 q. 4, propranolol 80 mg daily, Seroquel 25 q. 6, Daliresp 500 mcg daily, Requip 1 mg every day, Januvia 100 daily, tamsulosin 0.4 daily, Effexor 150 daily, Levemir 25 units at bedtime. SOCIAL HISTORY: Nonsmoker, does not use any alcohol. PHYSICAL EXAMINATION: GENERAL: He is awake and alert and oriented. VITAL SIGNS: Graphic trend shows a pressure of 121/67, pulse of 104, respirations 20, temperature 98.5. LUNGS: Diminished breath sounds. Scattered wheezes bilaterally. HEART: Regular, tachycardic. ABDOMEN: Obese, soft, nontender. EXTREMITIES: Without any edema. ASSESSMENT AND PLAN: 1. Acute exacerbation of chronic obstructive pulmonary disease with acute tracheobronchitis. The patient is placed on IV antibiotics and IV steroids and breathing treatments. Chest x-ray did not show any evidence of any pneumonia. 2. Tachycardia, possibly from underlying chronic obstructive pulmonary disease. Restart his propranolol. 3. Type 2 diabetes mellitus, insulin-dependent. Check blood sugars twice daily, coverage scale ordered. 4. Chronic lactic acidosis of unknown etiology. Sepsis will be ruled out with cultures and he is already on antibiotics. Slow IV hydration was given. Repeat labs will be ordered. [place], [place] PATIENT HISTORY AND PHYSICAL EXAM NAME: [facility]I [id number] UNIT #: [id number] ROOM: [facility] DOCTOR: JESSICA MOYER MD BIRTHDATE: [birth year] JESSICA MOYER MD CM:HISPHYS:PATIENT HISTORY AND PHYSICAL EXAMINATION [id number] JESSICA MOYER MD 03/17/19 0905 interface
--- NOTE | ~2019-03-16 | PR ---
[place], [place] PROGRESS NOTE NAME: [facility]ARE [facility]UMARI [id number] UNIT #: [id number] ROOM: 530 DOCTOR: JESSICA MOYER MD BIRTHDATE: [birth year] DOS: SUBJECTIVE: The patient developed severe abdominal pain around 3:00 this morning, had a CT of the abdomen and pelvis, which showed high-grade obstruction. NG tube was placed. The patient continues to have abdominal pain. He denies having any chest pains, palpitations. OBJECTIVE: VITAL SIGNS: Graphic trend shows a pressure of 155/95, pulse of 102, respirations 20, temperature 97.6. LUNGS: Diminished breath sounds. HEART: Regular, tachycardic, heart rate in the low 100s. ABDOMEN: Obese, distended. Bowel sounds absent. Colostomy is draining. EXTREMITIES: Without any edema. LABORATORY DATA: Lactic acid went up to 6.8. BMP: Glucose 340, BUN 21, creatinine 1.45, sodium 135, potassium 4.0, chloride 97. WBC count is up to 21.2, hemoglobin 10.3. ASSESSMENT AND PLAN: Acute bowel obstruction, high grade. Discussed with the patient as well as his girlfriend. The plan is to arrange for transfer to [facility] where Dr. Tolentino had done his previous colectomy and colostomy for the colovesical fistula. Lactic acidosis, possible sepsis, IV fluids have been continued and IV meropenem ordered. JESSICA MOYER MD CM:PNTRANS [phone] JESSICA MOYER MD 03/18/192000 interface
[2019-03-16 23:41] VITALS: BP 137/79
[2019-03-16 23:56] LABS: BASO # 0.1 10*3/uL (0.0-0.1); BASO % 0.9 % (0.0-1.0); EOS # 0.3 10*3/uL (0.0-0.4); EOS % 2.1 % (1.0-4.0); HEMATOCRIT 33.8 % (42.0-52.0); HEMOGLOBIN 10.8 g/dl (14.0-18.0); LYMPH % 23.6 % (27.0-41.0); MEAN CELL VOLUME 70.7 fl (80.0-94.0); MEAN CORPUSCULAR HGB 22.6 pg (27.0-31.0); MEAN PLATELET VOLUME 10.2 fl (9.6-12.3); MONO # 0.5 10*3/uL (0.1-1.0); NEUT # 8.6 10*3/uL (2.3-7.9); NEUT % 68.1 % (47.0-73.0); PLATELET COUNT AUTOMATED 478 10*3/uL (130-400); RED BLOOD COUNT 4.78 10*6/uL (4.50-5.90); RED CELL DISTRI WIDTH 19.5 % (0-14.5); WHITE BLOOD COUNT 12.7 10*3/uL (4.8-10.8)
[2019-03-17 00:04] LABS: INTERNATIONAL NORM RATIO 0.9 (2.0-3.5)
[2019-03-17 00:43] LABS: ALBUMIN 3.6 gm/dl (3.1-4.5); ALKALINE PHOSPHATASE 148 U/L (45-117); BUN 15 mg/dl (7-24); CHLORIDE 101 mmol/L (98-107); CREATININE 1.28 mg/dL (0.70-1.30); POTASSIUM 4.3 mmol/L (3.5-5.1); SGOT/AST 39 IU/L (3-35); SGPT/ALT 23 U/L (12-78); SODIUM 136 mmol/L (136-145); TOTAL PROTEIN 7.6 gm/dL (6.4-8.2); TROPONIN I < 0.015 ng/ml (<0.045)
--- NOTE | 2019-03-17 02:00 | NUR ---
PT REQUESTING PAIN MEDICATION. DR FATIMA HAD PREVIOUSLY SPOKE TO PATIENT AND ORDERED ASPIRIN. PT UNHAPPY WITH THIS AND IRATE. REFUSED ASPIRIN, PT SAID DR PASCUAL WILL ORDER HIM SOMETHING FOR PAIN UPSTAIRS.
[2019-03-17 02:10] VITALS: BP 121/67
--- NOTE | 2019-03-17 02:38 | NUR ---
ATTEMPTED TO CALL DR MOYER REGARDING PATIENT ORDERS.
--- NOTE | 2019-03-17 02:50 | NUR ---
ORDERS RECIEVED FROM PHYSICIAN FOR SOLUMEDROL TID AND CONTINUE ALL HOME MEDICATIONS.
[2019-03-17] MEDS ORDERED: INDERAL XL80 MG PO (02:58)
[2019-03-17] MEDS ORDERED: OMEPRAZOLE D/R20 MG PO (02:59)
[2019-03-17] MEDS ORDERED: REQUIP0.5 MG PO (03:00)
--- NOTE | 2019-03-17 03:00 | NUR ---
MED REC UPDATED PER PT
[2019-03-17] MEDS ORDERED: FLOMAX0.4 MG PO (03:02)
[2019-03-17] MEDS ORDERED: EFFEXOR XR150 M1 PO (03:02)
--- NOTE | 2019-03-17 03:22 | NUR ---
DR MOYER NOTIFIED OF CRITICAL LACTIC ACID. ORDERS RECIEVED.
[2019-03-17] MEDS ORDERED: MS CONTIN15 MG PO ×2 (05:09→12:07)
[2019-03-17] MEDS ORDERED: OXYCODONE HCL5 MG PO (05:38)
[2019-03-17 08:00] VITALS: BP 120/73
--- NOTE | 2019-03-17 08:23 | NUR ---
[facility] CALLED AT THIS TIME REGARDING MED LIST. PHARMACY NOT OPEN AT THIS TIME.
--- NOTE | 2019-03-17 11:00 | NUR ---
Enrollment Nurse in to talk to patient. Patient states lives at home alone with his family and his girlfriend checking in on him. There are 0 steps in the home. Physician: Dr. Federico Gross Pharmacy: [facility] Home health services: has had [facility] and [facility] previously but not currently Patient's level of ADLs: INDEPENDENT Patient has working utilities: yes DME: nebulizer Follow-up physician's appointment after d/c: he prefers to make his own follow up appt after discharge Does patient want to access PORTAL?: no Discharge plan discussed with patient. He lives at home alone with his family and girlfriend checking in on him. He is independent in his ADLs and ambulation. Discussed home health care services and he denies any home needs at this time. When medically stable he will be discharged to home. His girlfriend will transport on discharge. PATRICK MULLER
[2019-03-17 12:00] VITALS: BP 127/71
[2019-03-17] MEDS ORDERED: OXYCODONE HCL5 M1 PO (12:08)
--- NOTE | 2019-03-17 12:10 | NUR ---
CALLED REGARDING PAIN MEDICATION. AWAITING RETURN PHONE CALL.
--- NOTE | 2019-03-17 13:59 | NUR ---
EARLIER PAIN MEDICATIONS EFFECTIVE PER PT. WILL CONTINUE TO MONITOR.
[2019-03-17 16:00] VITALS: BP 127/65
--- NOTE | 2019-03-17 16:02 | NUR ---
PT REQUESTED AND RECEIVED PO OXYCODONE 10MG PER PRN ORDER FOR C/O BACK PAIN. RATES PAIN /10. CHRONIC PAIN PER PT. WILL MONITOR EFFECTIVENESS. CALL LIGHT WITHIN REACH.
--- NOTE | 2019-03-17 17:39 | NUR ---
OXY RELIEVING PAIN PER PT. WILL CONTINUE TO MONITOR.
--- NOTE | 2019-03-17 19:48 | NUR ---
24 HR chart check completed.
[2019-03-17 20:00] VITALS: BP 141/78
--- NOTE | 2019-03-17 20:30 | NUR ---
SITTING UP IN BED. NO DISTRESS NOTED. RESPIRATIONS EASY. LUNGS DIMINISHED WITH FORCED EXP WHEEZES. PULSE OX 98% 1.5L. INFREQUENT COUGH. ABD SOFTLY OBESE WITH NORMO BS. COLOSTOMY PATENT LLQ. CALL LIGHT WITHIN REACH. NO VOICED COMPLAINTS
--- NOTE | 2019-03-17 20:46 | NUR ---
MEDICATED WITH ROUTINE MS CONTIN FOR COMPLAINTS OF PAIN UNDER BILATERAL SHOULDER BLADES RATING A 7. WILL MONITOR
--- NOTE | 2019-03-17 22:30 | NUR ---
PATIENT SITTING AT BEDSIDE EATING [employer] MEAT SANDWHICH. NO DISTRESS NOTED. VSS.
--- NOTE | 2019-03-17 22:43 | NUR ---
MEDICATED WITH OXY PER PRN ORDER FOR COMPLAINTS OF PAIN UNDER BILATERAL SHOULDER BLADES RATING AN 8. ALSO MEDICATED WITH SEROQUEL TO ASSIST WITH ANXIETY. WILL MONITOR
--- NOTE | 2019-03-17 23:00 | NUR ---
PATIENT CALLING OUT. C/O SUDDEN SEVERE SHARP ABD PAIN. HYPO BS. COLOSTOMY PATENT. NO TENDERNESS UPON PALPATION. HR 130-150. ANXIOUS.
--- NOTE | 2019-03-17 23:20 | NUR ---
DR CONTRERAS CONTACTED REGARDING PATIENT'S SUDDEN ONSET SEVERE SHARP ABD PAIN. ABD FIRM, DISTENDED. COLOSTOMY PATENT. ABD NONTENDER UPON PALPATION. HR 130-140'S. NEW ORDERS RECEIVED
--- NOTE | 2019-03-17 23:26 | NUR ---
MEDICATED WITH DILAUDID IV PER 1 TIME ORDER FOR COMPLAINTS OF SEVERE SHARP ABD PAIN RATING A 10+. HR 130-140'S. WILL MONITOR
--- NOTE | 2019-03-17 23:30 | NUR ---
[facility] ONTO FLOOR
--- NOTE | 2019-03-17 23:45 | NUR ---
DR GUDINO CONTACTED AND INFORMED OF CONSULT. NEW ORDERS RECEIVED
--- NOTE | 2019-03-17 23:54 | NUR ---
PATIENT ANXIOUS, HR REMAINS 120-130'S. 1 TIME DOSE IV ATIVAN GIVEN. WILL MONITOR
[2019-03-18] VITALS: BP 153/84
--- NOTE | 2019-03-18 00:50 | NUR ---
CT PREP INITIATED. GF REMAINS AT BEDSIDE REFUSING TO LEAVE WHILE PATIENT IN DISTRESS. HR 110'S-120'S
--- NOTE | 2019-03-18 01:40 | NUR ---
UPON ENTERING ROOM, PATIENT AND GF BOTH RESTING WITH EYES CLOSED. ONCE AWARE RN PRESENT, PATIENT MOANING INCREASES. HR 110'S RESTING INCREASES TO 130'S. SECOND BOTTLE CT PREP PROVIDED.
--- NOTE | 2019-03-18 02:30 | NUR ---
TRANSPORTED OFF FLOOR VIA WC TO CAT SCAN
--- NOTE | 2019-03-18 02:50 | NUR ---
RETURNED FROM CT
--- NOTE | 2019-03-18 03:15 | NUR ---
DR CONTRERAS AGAIN CONTACTED REGARDING CONTINUING ABD PAIN. 1 TIME DOSE DILAUDID IV GIVEN FOR PAIN RATING A 10. GF REMAINS AT BEDSIDE. ABD FIRM, FAINT HYPO BS. COLOSTOMY
--- NOTE | 2019-03-18 03:55 | NUR ---
CRITICAL CT RESULTS RECEIVED. DR GUDINO CONTACTED AND INFORMED. NEW ORDERS RECEIVED
[2019-03-18 04:00] VITALS: BP 158/95
--- NOTE | 2019-03-18 04:00 | NUR ---
PATIENT AND GF INFORMED OF CRITICAL CT RESULTS.
--- NOTE | 2019-03-18 04:05 | NUR ---
DR TRAYLOR CONTACTED REGARDING CONSULT. NEW ORDERS RECEIVED
--- NOTE | 2019-03-18 04:10 | NUR ---
DR CONTRERAS CONTACTED AND UPDATED REGARDING PATIENT CONDITION AND CRITICAL CT RESULTS. NEW ORDERS RECEIVED
--- NOTE | 2019-03-18 04:10 | NUR ---
MONROE MCKENZIE ATTEMPTED NG BILATERAL NARES, UNSUCCESSFULLY. PATIENT NOT COOPERATIVE WITH SWALLOWING AND FOLLOWING COMMANDS. OG TUBE PLACED, PLACEMENT VERIFIED VIA AIR BOLUS. STAT CXR ORDERED FOR VERIFICATION
--- NOTE | 2019-03-18 05:20 | NUR ---
OG PLACEMENT VERIFIED VIA CXR. CONNECTED TO LIS. THICK BROWN DRAINAGE OBTAINED
--- NOTE | 2019-03-18 05:38 | NUR ---
critical lactic, dr stevens aware. iv fluids infusing
[2019-03-18 05:52] LABS: BUN 21 mg/dl (7-24); CHLORIDE 97 mmol/L (98-107); CREATININE 1.45 mg/dL (0.70-1.30); SODIUM 135 mmol/L (136-145)
[2019-03-18 06:17] LABS: HEMATOCRIT 35.8 % (42.0-52.0); HEMOGLOBIN 10.3 g/dl (14.0-18.0); MEAN CORPUSCULAR HGB 19.8 pg (27.0-31.0); MEAN CORPUSCULAR HGB CONC 28.8 g/dl (33.0-37.0); MEAN PLATELET VOLUME 10.3 fl (9.6-12.3); PLATELET COUNT AUTOMATED 450 10*3/uL (130-400); RED BLOOD COUNT 5.19 10*6/uL (4.50-5.90); RED CELL DISTRI WIDTH 19.1 % (0-14.5); WHITE BLOOD COUNT 21.2 10*3/uL (4.8-10.8)
--- NOTE | 2019-03-18 06:24 | NUR ---
patient repeatedly asking for pain meds. medicated with dilaudid and zofran for c/o of abd pain rating a 10 and nausea. og tube maintained lis. iv fluids infusing
[2019-03-18 06:39] LABS: PLATELET SUFFICIENCY HIGH (NORMAL); POLYCHROMASIA SLIGHT; TOTAL CELLS COUNTED 100 #CELLS
[2019-03-18 06:40] LABS: MICROCYTOSIS MODERATE
--- NOTE | 2019-03-18 07:30 | NUR ---
sleeping. o2 in use. less than 25 cc drainage noted in og
--- NOTE | 2019-03-18 07:30 | NUR ---
labs drawn via mediport per policy
--- NOTE | 2019-03-18 08:00 | NUR ---
NOTIFIED BY PEDRO IN LAB LACTIC ACID LEVEL AT 3.3. NOTIFIED DR. MOYER, INCREASED FLUIDS ORDERRED
--- NOTE | 2019-03-18 10:09 | NUR ---
NOTIFIED BY LAB , LACTIC ACID LEVEL 3.4. FLUIDS INCREASED PER ORDER BY DR. MOYER. SHE IS AWARE OF PT CHRONIC HIGH LACTIC ACID LEVELS.
--- NOTE | 2019-03-18 11:00 | NUR ---
Spoke to Juana mistry [facility] [phone] regarding authorization for transfer to a higher level of care at [facility] [[email or web address]] under the services of Dr. Tray Tolentino. Auth # [id number]. Fax clinical to [phone].
--- NOTE | 2019-03-18 11:39 | NUR ---
PT REQUESTING PAIN MEDS AND ANTIEMETIC ALL MORNING STARTING 1 HOUR AFTER RECIEVING SCHEDULED DOSE AT 0647. PT WAS PURPOSEFULLY GAGGING UNTIL HE BROUGHT UP HIS NG TUBE. GAVE 1 TIME DOSE OF ZOFRAN IN BETWEEN SCHEDULED DOSE. ORDERRED BY DR. MOYER. 1 TIME DOSE OF 0.5 MG OF DILAUDID ON HOLD UNTIL TRANSFER PER DR. MOYER ORDER. LEFT MESSAGE WITH DR. MOYER THAT PATIENT GAGGED UP HIS OG TUBE. AWAITING RETURN ALL FOR FURTHER INSTRUCTIONS.
--- NOTE | 2019-03-18 11:39 | NUR ---
Spoke to Theresa at [facility] Med Call regarding auth # [id number]. Per Theresa waiting on a bed to open, probably will be this afternoon. Notified tree warden.
[2019-03-18 16:00] VITALS: BP 130/80
--- NOTE | 2019-03-18 19:52 | NUR ---
PT CONTINUES TO ASK FOR PAIN MEDICATION , REFUSES REPLACEMENT OF NG/OG TUBE, ( ORDERRED BY DR. MOYER DUE TO FACT THAT THE [facility] CANNOT PLACE PATIENT UNTIL TOMORROW). PT REFUSES TO SEE DR. TRAYLOR. INSISTS HE NEEDS PAIN MEDS MORE OFTEN. DR. MOYER CHNGED DILAUDID TO 0.5 Q 4 HRS, PATIENT STATES HE WISHES TO SPEAK TO DR. CONTRERAS THIS IS NOT ENOUGH PAIN MED.
[2019-03-18 20:00] VITALS: BP 141/82
--- NOTE | 2019-03-18 20:06 | NUR ---
PT STATES HE IS IN SEVERE PAIN. ADMINISTERED DILAUDID PRESCRIBED. PT STATES IT IS ONLY EFFECTIVE FOR 3 HOURS BEFORE HIS PAIN RESUMES. WILL CONTINUE TO MONITOR AND REASSESS. OF NOW, HE STATES PAIN IS "100 ON A 0/10 SCALE, VERY SEVERE". PTS VITALS STABLE. CALL LIGHT IN REACH.
--- NOTE | 2019-03-18 22:20 | NUR ---
PRN ZOFRAN ADMINISTERED PRESCRIBED FOR PT COMPLAINT OF NAUSEA. PT C/O OF ABDOMINAL PAIN WELL. REQUESTS THAT I CALL DR. CONRTERAS TO SEE WHAT CAN BE DONE TO BETTER CONTROL HIS PAIN. NO OTHER COMPLAINTS. VITALS STABLE. PT MOANING AND GRUNTING WHEN I STEP FOOT INTO THE ROOM. PT AWARE THAT NEXT DOSE OF DILUADID NOT SCHEDULED UNTIL 0000.
--- NOTE | 2019-03-18 22:43 | NUR ---
SPOKE WITH DR. MOYER REGARDING PTS C/O SEVERE ABDOMINAL PAIN. SHE STATES SHE CAN NOT GIVE HIM ANY MORE DILUADID, HE IS GETTING IT Q4H AT THIS TIME. THE PTS VITALS ARE STABLE, I WILL INFORM THE PT OF DR. MOYER' RESPONSE.
[2019-03-19] VITALS: BP 132/73
--- NOTE | 2019-03-19 06:00 | NUR ---
SPOKE WITH [facility] MED CALL REGARDING PTS POSSIBLE TRANSFER. WAS INFORMED THAT NOW IT COULD BE AN ADDITIONAL 24 HOURS BEFORE A BED COULD BECOME AVAILABLE. WILL NOTIFY THE ONCOMING NURSE.
--- NOTE | 2019-03-19 08:00 | NUR ---
ASSESSMENT COMPLETE. PT COMPLAINS OF NAUSEA AND PAIN, SEE NOTE FOR PAIN MEDIACTION ASSESSMENT/INTERVENTION. PT HAS VERY HYPOACTIVE BS VS ABSENT BOWEL SOUNDS, DR. MOYER MADE AWARE. ABDOMEN IS FIRM AND DISTENDED. PT STATES NUMBNESS TO FEET, CHRONIC FOR HIM. NO SOB NOTED, WEARING OXYGEN AT 2 LITERS.
--- NOTE | 2019-03-19 08:00 | NUR ---
pt complain of abdominal pain /, dilaudid given as ordered. pt states that his abdominal pain has gotten worse over night. pt states he has been dry heaving all morning and now wants rn to attempt ng placement again. pt aware that [facility] has not yet called with a bed, he is still on wait list. pt now states he wants to look into [facility] to be transfer to.
--- NOTE | 2019-03-19 08:00 | NUR ---
DR. MOYER HERE TO SEE PATIENT, AWARE THAT MAY NOT GET A BED AT [facility] TODAY, AWARE THAT DISCHARGE ORDER PLACED HOWEVER, NO MEDICATIONS FOR DISCHARGE CONTINUED, PER DR. MOYER PT IS NPO SO SHE DID NOT CONTINUE HOME MEDICATIONS FOR DISCHARGE.
--- NOTE | 2019-03-19 09:00 | NUR ---
NG TELUGU #16 PLACED RIGHT NARES, PT TOLERATED FAIR, WHEN PLACING NG, PT VOMITED, NG TUBE WITH IMMEDIATE RUTURN OF GREEN BILE, NG DRAINED 1800CC FLUID, ATTEMPTED TO INJECT AIR BOLUS, UNABLE TO HEAR AIR BOLUS. PT MOANS LOUD AND CONTINUAL DRAINAGE OF FLUID MAKES HEARING AIR BOLUS DIFFICULT. DR. MOYER WANTED ACUTE ABDOMINAL SERIES ORDERED THIS AM, XRAY ORDERED AND WILL CHECK NG PLACEMENT. PT STATES IMMEDIATE RELIEF AFTER NG PLACED. WILL CONTINUE TO MONITOR.
--- NOTE | 2019-03-19 10:18 | NUR ---
SENT TO XRAY
--- NOTE | 2019-03-19 11:45 | NUR ---
NG TO RAS, GREEN BILE OUTPUT
[2019-03-19 12:00] VITALS: BP 153/78
--- NOTE | 2019-03-19 12:06 | NUR ---
PT STATES ABDOMINAL PAIN 7/10, DILAUDID GIVEN SCHEDULED. PT STATES NAUSEA, ZOFRAN GIVEN. PT STATES ABDOMINAL PAIN AND NAUSEA HAVE IMPROVED SINCE NG WAS INSERTED. NG DRIANING GREEN BILE LIKE THIN LIQUID.
--- NOTE | 2019-03-19 13:49 | NUR ---
DR. MOYER OFFICE CALLED AND NOTIFIED THAT PATIENT BEING TRANSFERED TO [facility]. DISCHARGE SIGNED BY PATIENT, UNDERSTANDS FOLLOW UP WITH PCP AFTER DISCHARGE FROM [facility]. SENT WITH [facility] RIGHT CHEST ACCESSED, NG RIGHT NARES.
--- NOTE | 2019-03-19 14:08 | NUR ---
REPORT CALLED TO [facility] RN, NO QUESTIONS AT THIS TIME. AWARE PT WAS PICKED UP FOR TRANSPORT
== END 2019-03-19 14:20 | disposition short-term general hospital (02) | DRG 191 ==
LOC: ED 23:34 → EDHOLD 03-17 01:42 → 5E 03-17 01:42
PROVIDERS: Student in an Organized Health Care Education/Training Program; ADMIT Internal Medicine
PROC: 0D9670Z Drainage of Stomach with Drainage Device, Via Natural or Artificial Opening (ICD-10-PCS; principal; 2019-03-18)
DX: J44.0 Chronic obstructive pulmonary disease with (acute) lower respiratory infection (principal); E87.2 Acidosis; N39.0 Urinary tract infection, site not specified; K56.609 Unspecified intestinal obstruction, unspecified as to partial versus complete obstruction; J44.1 Chronic obstructive pulmonary disease with (acute) exacerbation; E11.9 Type 2 diabetes mellitus without complications; F32.9 Major depressive disorder, single episode, unspecified; J20.9 Acute bronchitis, unspecified; K21.9 Gastro-esophageal reflux disease without esophagitis; E78.5 Hyperlipidemia, unspecified; I11.0 Hypertensive heart disease with heart failure; G43.909 Migraine, unspecified, not intractable, without status migrainosus; F41.9 Anxiety disorder, unspecified; I50.9 Heart failure, unspecified; E66.9 Obesity, unspecified; Z88.5 Allergy status to narcotic agent; Z88.8 Allergy status to other drugs, medicaments and biological substances; Z88.6 Allergy status to analgesic agent; Z85.030 Personal history of malignant carcinoid tumor of large intestine; Z86.010 Personal history of colon polyps; Z86.718 Personal history of other venous thrombosis and embolism; Z85.72 Personal history of non-Hodgkin lymphomas; Z80.8 Family history of malignant neoplasm of other organs or systems; Z83.3 Family history of diabetes mellitus; Z82.49 Family history of ischemic heart disease and other diseases of the circulatory system; Z82.5 Family history of asthma and other chronic lower respiratory diseases; Z90.49 Acquired absence of other specified parts of digestive tract; Z79.4 Long term (current) use of insulin; Z93.3 Colostomy status; Z68.35 Body mass index [BMI] 35.0-35.9, adult

== ENCOUNTER 2019-04-03 23:25 | Emergency (ER) | payer OTHER ==
[~2019-04-03] VITALS: Ht 187.9 cm; Wt 123.8 kg
[~2019-04-03 23:25] MED LIST changes: +EFFEXOR XR150 M1 PO; +INDERAL XL80 MG PO; +MS CONTIN15 MG PO; +OXYCODONE HCL5 M1 PO; +OXYCODONE HCL5 MG PO
[2019-04-04 00:33] LABS: HEMATOCRIT 36.3 % (42.0-52.0); HEMOGLOBIN 10.8 g/dl (14.0-18.0); MEAN CELL VOLUME 69.5 fl (80.0-94.0); MEAN CORPUSCULAR HGB 20.7 pg (27.0-31.0); MEAN CORPUSCULAR HGB CONC 29.8 g/dl (33.0-37.0); MEAN PLATELET VOLUME 9.7 fl (9.6-12.3); PLATELET COUNT AUTOMATED 451 10*3/uL (130-400); RED BLOOD COUNT 5.22 10*6/uL (4.50-5.90); RED CELL DISTRI WIDTH 18.5 % (0-14.5); WHITE BLOOD COUNT 21.1 10*3/uL (4.8-10.8)
[2019-04-04 00:47] LABS: ALBUMIN 3.6 gm/dl (3.1-4.5); ALKALINE PHOSPHATASE 133 U/L (45-117); BUN 14 mg/dl (7-24); CHLORIDE 101 mmol/L (98-107); LIPASE 206 U/L (73-393); POTASSIUM 4.1 mmol/L (3.5-5.1); SGOT/AST 17 IU/L (3-35); SGPT/ALT 36 U/L (12-78); SODIUM 133 mmol/L (136-145); TOTAL PROTEIN 7.5 gm/dL (6.4-8.2)
[2019-04-04 00:52] LABS: TOTAL CELLS COUNTED 100 #CELLS
[2019-04-04 00:53] LABS: MICROCYTOSIS SLIGHT; PLATELET SUFFICIENCY NORMAL (NORMAL)
[2019-04-04 02:13] LABS: BILIRUBIN NEGATIVE (NEGATIVE); BLOOD NEGATIVE (NEGATIVE); CLARITY CLEAR (CLEAR); COLOR YELLOW (YELLOW); GLUCOSE NEGATIVE (NEGATIVE); KETONE NEGATIVE (NEGATIVE); LEUKO ESTERASE NEGATIVE (NEGATIVE); NITRITE NEGATIVE (NEGATIVE); PH 5.5 (5.0-9.0); SPECIFIC GRAVITY >= 1.030 (1.005-1.030); UROBILINOGEN 0.2 E.U./dl (0.2-1.0)
[2019-04-04 02:21] LABS: BACTERIA 1+; EPITHELIAL CELLS 0-2; MUCOUS TRACE; RBC 0-2 rbc/hpf (0-2)
[2019-04-04 04:40] VITALS: BP 112/68
== END 2019-04-04 06:15 | disposition short-term general hospital (02) ==
LOC: ED 23:25
PROVIDERS: Emergency Medicine Emergency Medical Services
DX: K56.600 Partial intestinal obstruction, unspecified as to cause (principal); G89.29 Other chronic pain; J44.9 Chronic obstructive pulmonary disease, unspecified; K21.9 Gastro-esophageal reflux disease without esophagitis; E78.5 Hyperlipidemia, unspecified; I11.0 Hypertensive heart disease with heart failure; I50.9 Heart failure, unspecified; E11.9 Type 2 diabetes mellitus without complications; G43.909 Migraine, unspecified, not intractable, without status migrainosus; E66.9 Obesity, unspecified; Z93.3 Colostomy status; Z88.8 Allergy status to other drugs, medicaments and biological substances; Z88.5 Allergy status to narcotic agent; Z88.1 Allergy status to other antibiotic agents; Z88.6 Allergy status to analgesic agent; Z79.899 Other long term (current) drug therapy; Z79.4 Long term (current) use of insulin; Z68.30 Body mass index [BMI] 30.0-30.9, adult; Z85.060 Personal history of malignant carcinoid tumor of small intestine

== ENCOUNTER 2019-05-07 15:59 | Emergency (ER) | payer OTHER ==
[~2019-05-07] VITALS: Ht 187.9 cm; Wt 123.8 kg
--- NOTE | ~2019-05-07 | EKG ---
[place], [place] ELECTROCARDIOGRAM REPORT NAME: CLARE KUMARI UNIT #: [id number] ROOM: DOCTOR: EPIPHANY DRAFT REPORT BIRTHDATE: [birth year] [facility] Test Date: 2019-05-07 Test Time: 16:39:12 Pat Name: CLARE KUMARI Department: Room: Gender: Hot End Operator: Lula Beard : 1965 Requested By: ESTHELA JAVIER Order Number: [id number] Reading MD: Stan Webb MD Measurements Intervals [place] Rate: 109 P: 54 KS: 199 QRS: 27 QRSD: 97 T: -10 QT: 322 QTc: 434 Interpretive Statements Sinus tachycardia Borderline prolonged KS interval Electronically Signed On 05-08-2019 4:41:43 PDT by Stan Webb MD CM:EKGRPT:ELECTROCARDIOGRAM REPORT [id number] ESTHELA CARLIN DRAFT REPORT ESTHELA JAVIER DO
[2019-05-07 17:08] LABS: BASO # 0.1 10*3/uL (0.0-0.1); BASO % 0.7 % (0.0-1.0); EOS # 0.3 10*3/uL (0.0-0.4); EOS % 2.9 % (1.0-4.0); HEMOGLOBIN 10.2 g/dl (14.0-18.0); LYMPH # 3.4 10*3/uL (1.3-4.4); LYMPH % 31.2 % (27.0-41.0); MEAN CELL VOLUME 69.2 fl (80.0-94.0); MEAN CORPUSCULAR HGB 20.2 pg (27.0-31.0); MEAN CORPUSCULAR HGB CONC 29.1 g/dl (33.0-37.0); MONO # 1.1 10*3/uL (0.1-1.0); MONO % 9.6 % (3.0-9.0); NEUT % 54.9 % (47.0-73.0); PLATELET COUNT AUTOMATED 394 10*3/uL (130-400); RED BLOOD COUNT 5.06 10*6/uL (4.50-5.90); RED CELL DISTRI WIDTH 17.9 % (0-14.5)
[2019-05-07 17:19] LABS: ACT PARTIAL THROMBO TIME 26.2 SECONDS (20.0-32.1); INTERNATIONAL NORM RATIO 0.9 (2.0-3.5)
[2019-05-07 17:24] LABS: ALBUMIN 3.9 gm/dl (3.1-4.5); ALKALINE PHOSPHATASE 158 U/L (45-117); BUN 14 mg/dl (7-24); CHLORIDE 98 mmol/L (98-107); CREATININE 1.11 mg/dL (0.70-1.30); POTASSIUM 3.7 mmol/L (3.5-5.1); SGOT/AST 8 IU/L (3-35); SGPT/ALT 23 U/L (12-78); SODIUM 132 mmol/L (136-145); TOTAL PROTEIN 8.2 gm/dL (6.4-8.2)
[2019-05-07 17:25] LABS: TROPONIN I < 0.015 ng/ml (<0.045)
[2019-05-07 18:41] LABS: BILIRUBIN NEGATIVE (NEGATIVE); BLOOD TRACE-INTACT (NEGATIVE); CLARITY SL CLOUDY (CLEAR); COLOR YELLOW (YELLOW); GLUCOSE 3+ (NEGATIVE); KETONE NEGATIVE (NEGATIVE); LEUKO ESTERASE 2+ (NEGATIVE); NITRITE NEGATIVE (NEGATIVE); PH 5.5 (5.0-9.0); SPECIFIC GRAVITY 1.015 (1.005-1.030); UROBILINOGEN 0.2 E.U./dl (0.2-1.0)
[2019-05-07 18:48] LABS: BACTERIA TRACE; RBC 0-2 rbc/hpf (0-2); WBC 41-50 wbc/hpf (0-5); YEAST 1+
[2019-05-07 20:57] VITALS: BP 119/62
== END 2019-05-07 23:20 | disposition short-term general hospital (02) ==
LOC: ED 15:59
PROVIDERS: Family Medicine
DX: K46.9 Unspecified abdominal hernia without obstruction or gangrene (principal); R10.84 Generalized abdominal pain; R10.32 Left lower quadrant pain; G89.29 Other chronic pain; I11.0 Hypertensive heart disease with heart failure; I50.9 Heart failure, unspecified; K21.9 Gastro-esophageal reflux disease without esophagitis; E78.5 Hyperlipidemia, unspecified; G43.909 Migraine, unspecified, not intractable, without status migrainosus; J44.9 Chronic obstructive pulmonary disease, unspecified; D68.51 Activated protein C resistance; Z79.899 Other long term (current) drug therapy; Z79.4 Long term (current) use of insulin; Z86.718 Personal history of other venous thrombosis and embolism; Z88.5 Allergy status to narcotic agent; Z88.1 Allergy status to other antibiotic agents; Z88.8 Allergy status to other drugs, medicaments and biological substances; Z98.890 Other specified postprocedural states; Z79.01 Long term (current) use of anticoagulants

== ENCOUNTER 2019-06-16 14:40 | Inpatient (IN) | payer OTHER ==
[~2019-06-16] VITALS: Ht 187.9 cm; Wt 135.7 kg
--- NOTE | ~2019-06-16 | PR ---
[place], [place] PROGRESS NOTE [id number] UN[facility] #: [id number] ROOM: 530 DOCTOR: DIANE KUMAR,SPARKLE Priest BIRTHDATE: [birth year] DOS: 06/20/2019 SUBJECTIVE: The patient continues to improve, still has slight wheezing. PHYSICAL EXAMINATION: VITAL SIGNS: Blood pressure 134/78, heart rate 69 beats per minute, breathing 18 times per minute, temperature 98.3 degrees Fahrenheit. GENERAL APPEARANCE: The patient is alert and oriented x 3, in no visible distress. Morbid obesity. HEENT AND NECK: Exam within normal limits. CARDIOVASCULAR SYSTEM: Heart rate is regular in rate and rhythm. S1 and S2 normally audible. LUNGS: Expiratory wheezing all over on lung auscultation. ABDOMEN: Soft, nontender. No obvious organomegaly. Bowel sounds are present. EXTREMITIES: Without significant cyanosis or edema. IMPRESSION: 1. The patient with acute exacerbation of chronic obstructive pulmonary disease with wheezing and shortness of breath, continues to improve with oxygen, bronchodilators, nebulizer treatments, corticosteroids and hopefully I will be able to discharge him to home tomorrow. 2. Factor V Leiden deficiency, treated with apixaban for acute coagulopathy. 3. Obesity with a BMI of 37.8. The patient following up with Dietary. 4. Mixed hyperlipidemia, treated with Lipitor. 5. Corticosteroid-induced hyperglycemia. The patient's corticosteroid dosage has been reduced and the patient is being covered with insulin. 6. Type 2 diabetes mellitus. The patient's blood sugars will be monitored and treated. 7. Benign prostatic hypertrophy and urine retention, asymptomatic with Flomax. 8. Chronic lower back pains and lumbar spondylosis being treated and controlled. The patient on oxycodone. 9. Mixed hyperlipidemia, treated with Lipitor. SPARKLE CONTRERAS MD CM:PNTRANS [id number] SPARKLE CONTRERAS MD 06/20/191911 interface
--- NOTE | ~2019-06-16 | EKG ---
[place], [place] ELECTROCARDIOGRAM REPORT NAME: CLARE KUMARI UNIT #: [id number] ROOM: 505 DOCTOR: IMMANUEL DRAFT REPORT BIRTHDATE: [birth year] [facility] Test Date: 2019-06-16 Test Time: 20:06:03 Pat Name: CLARE KUMARI Department: Room: 505 Gender: M Roller Varnisher: : 1965 Requested By: GIULIA THAYER Order Number: [id number] Reading MD: Julia Caban Measurements Intervals [place] Rate: 89 P: 54 NC: 180 QRS: 4 QRSD: 109 T: 19 QT: 379 QTc: 462 Interpretive Statements Sinus rhythm ST elev, probable normal early repol pattern Compared to ECG 05/07/2019 16:39:12 ST (T wave) deviation now present Sinus tachycardia no longer present Electronically Signed On 06-18-2019 9:52:11 PDT by Julia Caban CM:EKGRPT:ELECTROCARDIOGRAM REPORT [id number] GIULIA GAMBINO DRAFT REPORT GIULIA THAYER MD
--- NOTE | ~2019-06-16 | DS ---
[place], [place] DISCHARGE SUMMARY NAME: CLARE KUMARI [facility] #: [id number] UNIT #: [id number] ROOM: 530 DOCTOR: SPARKLE CONTRERAS MD BIRTHDATE: [birth year] DOS: 06/22/2019 The patient is doing much better. His wheezing has resolved. DISCHARGE MANAGEMENT: 1. Acute exacerbation of chronic obstructive pulmonary disease with acute over chronic respiratory failure with wheezing has resolved with treatment with corticosteroids, antibiotic and oxygen. 2. Obesity, BMI of 37.8. The patient is working on diet. 3. Mixed hyperlipidemia, treated and followed as an outpatient. The patient is on Lipitor. 4. Type 2 diabetes mellitus. The patient remains on insulin and glipizide. Blood sugars are being monitored and treated. 5. Corticosteroid-induced hyperglycemia, treated with insulin coverage, sugars improving after Solu-Medrol was stopped. 6. Gastroesophageal reflux disease and esophagitis, asymptomatic with omeprazole. 7. Chronic lower back pains and chronic pain syndrome followed by pain center. The patient remains on oxycodone and OxyIR. 8. Factor V Leiden deficiency with coagulopathy, treated with apixaban. 9. Restless leg syndrome, treated and controlled with ropinirole. 10. The patient with obesity and BMI of 37.8. The patient worked with Dietary. Weight has been stable. 11. Benign prostatic hypertrophy and urine retention, asymptomatic with Flomax, which was continued. 12. Chronic systolic type congestive heart failure, treated with Bumex. LABORATORY DATA: Blood sugars improving, last one at 449. Normal serum electrolytes. Cardiac enzymes were negative. DISCHARGE MANAGEMENT: Daliresp 500 mcg daily, lisinopril 5 mg a day, Flomax 0.4 mg a day, omeprazole 20 mg b.i.d., Tradjenta 5 mg daily, venlafaxine 150 mg 2 capsules daily, long-acting propranolol 80 mg a day, glipizide 10 mg daily, Bumex 2 mg daily, ropinirole 1 mg at bedtime, gabapentin 900 mg 3 times a day, atorvastatin 10 mg at bedtime, apixaban 5 mg b.i.d., Seroquel 25 mg q.i.d. p.r.n. by Psychiatry, DuoNeb every 4 hours as needed, buspirone 10 mg 3 times a day, oxycodone 15 mg every 4 hours as needed, morphine sulfate 30 mg every 4 hours as needed. [place], [place] DISCHARGE SUMMARY NAME: CLARE KUMARI UNIT #: [id number] ROOM: [facility] DOCTOR: SPARKLE CONTRERAS MD BIRTHDATE: [birth year] SPARKLE CONTRERAS MD CM:DISCHPAU [id number] SPARKLE CONTRERAS MD 06/22/19 2319 interface
--- NOTE | ~2019-06-16 | EKG ---
[place], [place] ELECTROCARDIOGRAM REPORT NAME: CLARE KUMARI UNIT #: [id number] ROOM: 505 DOCTOR: IMMANUEL DRAFT REPORT BIRTHDATE: [birth year] [facility] Test Date: 2019-06-16 Test Time: 17:28:15 Pat Name: CLARE KUMARI Department: Room: 505 Gender: M Manager Er: : 1965 Requested By: GIULIA THAYER Order Number: [id number] Reading MD: Julia Caban Measurements Intervals [place] Rate: 90 P: 57 FL: 193 QRS: 0 QRSD: 102 T: 28 QT: 359 QTc: 440 Interpretive Statements Sinus rhythm Abnormal R-wave progression, early transition ST elevation, consider inferior injury Compared to ECG 05/07/2019 16:39:12 ST (T wave) deviation now present Myocardial infarct finding now present Sinus tachycardia no longer present Electronically Signed On 06-18-2019 9:51:33 PDT by Julia Caban CM:EKGRPT:ELECTROCARDIOGRAM REPORT [id number] GIULIA GAMBINO DRAFT REPORT GIULIA THAYER MD
--- NOTE | ~2019-06-16 | EKG ---
[place], [place] ELECTROCARDIOGRAM REPORT NAME: CLARE KUMARI UNIT #: [id number] ROOM: 505 DOCTOR: IMMANUEL DRAFT REPORT BIRTHDATE: [birth year] [facility] Test Date: 2019-06-16 Test Time: 14:39:02 Pat Name: CLARE KUMARI Department: Room: 505 Gender: M Dispatcher Relay: : 1965 Requested By: GIULIA THAYER Order Number: [id number] Reading MD: Julia Caban Measurements Intervals [place] Rate: 101 P: 49 UT: 180 QRS: -1 QRSD: 104 T: 29 QT: 358 QTc: 465 Interpretive Statements Sinus tachycardia Compared to ECG 05/07/2019 16:39:12 No significant changes Electronically Signed On 06-18-2019 9:49:28 PDT by Julia Caban CM:EKGRPT:ELECTROCARDIOGRAM REPORT [id number] GIULIA GAMBINO DRAFT REPORT GIULIA THAYER MD
--- NOTE | ~2019-06-16 | PR ---
[place], [place] PROGRESS NOTE NAME: CLARE KUMARI UNIT #: [id number] ROOM: 530 DOCTOR: SPARKLE CONTRERAS MD BIRTHDATE: [birth year] DOS: 06/21/2019 SUBJECTIVE: The patient is still wheezing and would like to be discharged to home tomorrow rather than today. He is still somewhat short of breath. PHYSICAL EXAMINATION: VITAL SIGNS: Blood pressure 117/68, heart rate 86 beats per minute, breathing 20 times per minute, temperature 98.5 degrees Fahrenheit. GENERAL APPEARANCE: The patient is alert and oriented x 3, in no visible distress. HEENT AND NECK: Exam within normal limits. CARDIOVASCULAR SYSTEM: Heart rate is regular in rate and rhythm. S1 and S2 normally audible. LUNGS: Expiratory wheezing which is mild all over his lungs. ABDOMEN: Soft, nontender. No obvious organomegaly. Bowel sounds are present. Obesity and the patient has a colostomy. EXTREMITIES: Without significant cyanosis or edema. IMPRESSION: 1. Acute exacerbation of chronic obstructive pulmonary disease with expiratory wheezing and shortness of breath continues to improve. The patient does not want to go home today and would rather be discharged to home tomorrow, so I will keep him one more day. 2. Obesity, BMI of 37.8. The patient is working on diet. 3. Mixed hyperlipidemia. 4. Hyperlipidemia, treated with Lipitor. 5. Factor V Leiden deficiency and coagulopathy, treated with apixaban for acute coagulopathy. 6. Corticosteroid-induced hyperglycemia. Finally, this corticosteroids have been stopped and blood sugars being covered with insulin. 7. Type 2 diabetes mellitus with elevated blood sugars are being treated and controlled. 8. Benign prostatic hypertrophy, treated with Flomax, asymptomatic. 9. Mixed hyperlipidemia. The patient remains on Lipitor. 10. Chronic lower back pains and lumbar spondylosis, treated and controlled. The patient on oxycodone and OxyIR per Pain Center. [place], [place] PROGRESS NOTE NAME: CLARE KUMARI UNIT #: [id number] ROOM: 530 DOCTOR: SPARKLE CONTRERAS MD BIRTHDATE: [birth year] SPARKLE CONTRERAS MD CM:PNTRANS [id number] SPARKLE CONTRERAS MD 06/22/19 0023 interface
--- NOTE | ~2019-06-16 | PR ---
[place], [place] PROGRESS NOTE [id number] #: [id number] ROOM: 505 DOCTOR: SPARKLE CONTRERAS MD BIRTHDATE: [birth year] DOS: 06/18/2019 SUBJECTIVE: The patient continues to breathe better. OBJECTIVE: VITAL SIGNS: Blood pressure 108/58, heart rate 82 beats per minute, breathing 20 times per minute, temperature 98 degrees Fahrenheit. GENERAL APPEARANCE: The patient is alert and oriented x 3, in no visible distress. HEENT AND NECK: Exam within normal limits. CARDIOVASCULAR SYSTEM: Heart rate is regular in rate and rhythm. S1 and S2 normally audible. LUNGS: Clear to auscultation. ABDOMEN: Obesity, surgical abdominal scars and colostomy. EXTREMITIES: Without significant cyanosis or edema. IMPRESSION AND PLAN: 1. The patient with acute exacerbation of chronic obstructive pulmonary disease, improving with corticosteroids, oxygen, nebulizer treatments and antibiotic. 2. Factor V Leiden deficiency and coagulopathy, treated with apixaban. 3. Obesity with a BMI of 37.8. The patient is working with Dietary. 4. Benign prostatic hypertrophy, asymptomatic. The patient is being treated with Flomax. 5. Type 2 diabetes mellitus. The patient is on Tradjenta and insulin. Blood sugars being monitored and treated. 6. Mixed hyperlipidemia, treated with Lipitor. 7. Generalized anxiety disorder, treated and controlled with buspirone. 8. Chronic back pains and lumbar spondylosis. The patient remains on oxycodone. SPARKLE CONTRERAS MD CM:PNTRANS [id number] SPARKLE CONTRERAS MD 06/18/19 1736 interface
--- NOTE | ~2019-06-16 | WRIGHTHP ---
[place], [place] PATIENT HISTORY AND PHYSICAL EXAM NAME: CLARE KUMARI [facility] #: [id number] UNIT #: [id number] ROOM: [facility] DOCTOR: SPARKLE CONTRERAS MD BIRTHDATE: [birth year] DOS: 06/16/2019 HISTORY OF PRESENT ILLNESS: The patient is a 53-year-old gentleman with a past medical history of: 1. Colovesical fistula, status post repair and colostomy. 2. History of colectomy and colostomy. 3. Factor V Leiden mutation and coagulopathy. 4. Chronic pain syndrome. 5. Type 2 diabetes mellitus. 6. Morbid obesity. 7. Chronic obstructive pulmonary disease. 8. Major depression, recurrent, mild. 9. Non-Hodgkin's lymphoma, history in 2004. 10. Mixed hyperlipidemia. 11. History of colon cancer in remission. The patient presented to Emergency Department with wheezing and increasing shortness of breath for a few days and an acute over chronic respiratory failure. After initial treatment in the Emergency Department, he was admitted to a monitored bed for close monitoring and treatment with bronchodilators, corticosteroids, antibiotic and oxygen and breathing has slightly improved since admission. No chest pain, no GI or urinary symptoms. REVIEW OF SYSTEMS: RESPIRATORY: Increasing shortness of breath and wheezing. GASTROINTESTINAL: No nausea, vomiting, diarrhea, constipation. CARDIOVASCULAR: No chest pains or palpitations. FAMILY HISTORY: Noncontributory. HOME MEDICATIONS: Daliresp, lisinopril, Flomax, omeprazole, Tradjenta, venlafaxine, propranolol, glipizide, Bumex, ropinirole, insulin, gabapentin, atorvastatin, apixaban, oxycodone, buspirone. ALLERGIES: KNOWN ALLERGIES TO CODEINE, METFORMIN, QUINOLONES, RITUXAN. FAMILY HISTORY: Noncontributory. PHYSICAL EXAMINATION: GENERAL: Alert and oriented x 3, in no visible distress. Obesity with BMI of 37.8. VITAL SIGNS: Blood pressure was 132/72, heart rate 98 beats per minute, breathing 18 times per minute, temperature 99.4 degrees Fahrenheit. HEENT AND NECK: Extraocular movements are intact. Sclerae are anicteric. Oral mucosa is moist and clean. No obvious facial weakness. Neck is supple without any lymphadenopathy. No thyromegaly. No JVD. No carotid arterial bruits. LUNGS: Clear to auscultation. No wheezing. No rhonchi. CARDIOVASCULAR SYSTEM: Heart rate is regular in rate and rhythm. S1 and S2 normally audible. No significant murmur or any other abnormal cardiac sounds. ABDOMEN: Obesity. Mid abdominal surgical scar from previous surgery, [place], [place] PATIENT HISTORY AND PHYSICAL EXAM NAME: CLARE KUMARI [facility] #: [id number] UNIT #: [id number] ROOM: [facility] DOCTOR: SPARKLE CONTRERAS MD BIRTHDATE: [birth year] colostomy. EXTREMITIES: Without significant cyanosis or edema. Warm to touch. CENTRAL NERVOUS SYSTEM: Alert and oriented x 3. Cranial nerves II-XII are intact. Speech is normal. The patient is able to move all extremities. Normal muscle strength. Deep tendon reflexes are equal on both sides. Plantars were downgoing. LABORATORY DATA: Negative cardiac enzymes. Normal serum electrolytes. White cell count of 12,200. IMPRESSION: 1. Acute exacerbation of significant underlying chronic obstructive pulmonary disease with wheezing and shortness of breath, being treated with bronchodilators, DuoNeb, corticosteroids, oxygen, and antibiotic and the patient started improving. The patient is also on oxygen by titration. 2. Factor V Leiden deficiency and coagulopathy, treated with apixaban. 3. Mixed hyperlipidemia, treated with Lipitor. 4. Chronic lower back pain and lumbar spondylosis. The patient remains on oxycodone. 5. Generalized anxiety disorder, treated with buspirone. 6. Mixed hyperlipidemia, treated with Lipitor. 7. Chronic systolic type congestive heart failure, treated with Bumex and propranolol. 8. Benign prostatic hypertrophy and urinary retention, asymptomatic with Flomax. 9. Type 2 diabetes mellitus. The patient continued on Tradjenta. Blood sugar is being monitored and covered with insulin. SPARKLE CONTRERAS MD CM:HISPHYS:PATIENT HISTORY AND PHYSICAL EXAMINATION 15 00 SPARKLE CONTRERAS MD 06/17/19 1201 interface
--- NOTE | ~2019-06-16 | PR ---
[place], [place] PROGRESS NOTE [id number] UN[facility] #: [id number] ROOM: 530 DOCTOR: SPARKLE CONTRERAS MD BIRTHDATE: [birth year] DOS: 06/19/2019 SUBJECTIVE: The patient continues to feel better. His breathing is improving with treatment. OBJECTIVE: VITAL SIGNS: Blood pressure 118/63, heart rate 71 beats per minute, breathing 20 times per minute, temperature 98 degrees Fahrenheit. GENERAL APPEARANCE: The patient is alert and oriented x 3, in no visible distress, except for obesity. HEENT AND NECK: Exam within normal limits. CARDIOVASCULAR SYSTEM: Heart rate is regular in rate and rhythm. S1 and S2 normally audible. LUNGS: Show mild expiratory wheezing all over. ABDOMEN: Soft, nontender. No obvious organomegaly. Bowel sounds are present. EXTREMITIES: Without significant cyanosis or edema. IMPRESSION AND PLAN: 1. Acute exacerbation of chronic obstructive pulmonary disease with wheezing and shortness of breath, being treated with oxygen, bronchodilators, nebulizer, antibiotic and corticosteroids and he is gradually improving. 2. Factor V Leiden deficiency with coagulopathy, being treated with apixaban. 3. Mixed hyperlipidemia. The patient remains on Lipitor. 4. Chronic lower back pain and lumbar spondylosis. The patient is ambulating and being treated with oxycodone. 5. Benign prostatic hypertrophy and urinary retention, treated with Flomax. 6. Type 2 diabetes mellitus. The patient is on Tradjenta and insulin. Blood sugar is being monitored and treated. 7. Corticosteroid-induced hyperglycemia. 7. Mixed hyperlipidemia, treated with Lipitor. 8. Benign prostatic hypertrophy and urine retention, asymptomatic, being treated with Flomax. SPARKLE CONTRERAS MD CM:PNTRANS [id number] SPARKLE CONTRERAS MD 06/19/[id number] interface
[~2019-06-16 14:40] MED LIST changes: -NEURONTIN800 MG PO; +REQUIP0.25 M1 PO
[2019-06-16 14:41] VITALS: BP 122/60
--- NOTE | 2019-06-16 15:00 | NUR ---
ONCE PATIENT DISROBED AND COULD FURTHER BE ASSESSED, HE HAS GROUPINGS OF BLISTERED AREAS TO HIS ENTIRE TRUNK.
[2019-06-16 15:11] LABS: BASO # 0.1 10*3/uL (0.0-0.1); BASO % 0.6 % (0.0-1.0); EOS # 0.3 10*3/uL (0.0-0.4); EOS % 2.1 % (1.0-4.0); HEMATOCRIT 36.1 % (42.0-52.0); HEMOGLOBIN 10.2 g/dl (14.0-18.0); LYMPH # 3.3 10*3/uL (1.3-4.4); MEAN CELL VOLUME 68.5 fl (80.0-94.0); MEAN CORPUSCULAR HGB 19.4 pg (27.0-31.0); MEAN CORPUSCULAR HGB CONC 28.3 g/dl (33.0-37.0); MEAN PLATELET VOLUME 9.7 fl (9.6-12.3); MONO % 8.3 % (3.0-9.0); NEUT # 7.5 10*3/uL (2.3-7.9); NEUT % 61.1 % (47.0-73.0); PLATELET COUNT AUTOMATED 375 10*3/uL (130-400); RED BLOOD COUNT 5.27 10*6/uL (4.50-5.90); RED CELL DISTRI WIDTH 19.5 % (0-14.5); WHITE BLOOD COUNT 12.2 10*3/uL (4.8-10.8)
[2019-06-16 15:16] LABS: BILIRUBIN NEGATIVE (NEGATIVE); BLOOD NEGATIVE (NEGATIVE); CLARITY CLEAR (CLEAR); COLOR YELLOW (YELLOW); GLUCOSE 2+ (NEGATIVE); KETONE NEGATIVE (NEGATIVE); LEUKO ESTERASE NEGATIVE (NEGATIVE); NITRITE NEGATIVE (NEGATIVE); UROBILINOGEN 0.2 E.U./dl (0.2-1.0)
[2019-06-16 15:23] LABS: BACTERIA TRACE; EPITHELIAL CELLS 0-2
[2019-06-16 15:23] LABS: ACT PARTIAL THROMBO TIME 26.5 SECONDS (20.0-32.1); INTERNATIONAL NORM RATIO 0.9 (2.0-3.5)
[2019-06-16 15:30] LABS: ALBUMIN 3.6 gm/dl (3.1-4.5); ALKALINE PHOSPHATASE 158 U/L (45-117); BUN 15 mg/dl (7-24); CHLORIDE 97 mmol/L (98-107); CREATININE 1.28 mg/dL (0.70-1.30); POTASSIUM 4.3 mmol/L (3.5-5.1); SGOT/AST 15 IU/L (3-35); SGPT/ALT 34 U/L (12-78); SODIUM 131 mmol/L (136-145); TOTAL PROTEIN 8.4 gm/dL (6.4-8.2)
[2019-06-16 15:32] LABS: TROPONIN I < 0.015 ng/ml (<0.045)
[2019-06-16 15:53] VITALS: BP 130/73
[2019-06-16 17:30] VITALS: BP 113/69
[2019-06-16] MEDS ORDERED: HUMALOG100 UNIT/1 SQ (17:55)
[2019-06-16] MEDS ORDERED: GLUCOTROL10 MG PO (17:56)
--- NOTE | 2019-06-16 17:57 | NUR ---
Time: 1729 A 53 year old MALE admitted to 5E under services of DR. DIANE KUMAR,SPARKLE Roth Pt. arrived via bed from ER. Chief complaint: COPD EXACERBATION. HISSOM,EDDIE
[2019-06-16] MEDS ORDERED: BREO ELLIPTA 11 EACH IH (17:59)
[2019-06-16] MEDS ORDERED: BIPAP (18:02)
--- NOTE | 2019-06-16 18:22 | NUR ---
MEDICATIONS REVIEWED WITH KRISTIE CONTRERAS
--- NOTE | 2019-06-16 18:22 | NUR ---
MEDICATIONS REVIEWED WITH DR CONTRERAS. ORDERS RECIEVED
--- NOTE | 2019-06-16 19:56 | NUR ---
24 HR chart check completed.
[2019-06-16 20:00] VITALS: BP 114/58
--- NOTE | 2019-06-16 20:30 | NUR ---
RESTING IN BED WATCHING TV. RESPIRATIONS EASY. LUNGS DIMINISHED WITH EXP WHEEZES. PULSE OX 97% 3L. CLAIMS NON-PROD COUGH. ABD SOFT WITH NORMO BS, DENIES N/V/D. COLOSTOMY PATENT. CALL LIGHT WITHIN REACH. NO VOICED COMPLAINTS
--- NOTE | 2019-06-16 21:03 | NUR ---
REQUESTED AND RECEIVED ROXICODONE AND SEROQUEL PER PRN ORDER FOR COMPLAINTS OF ABD PAIN RATING A 6 AND TO ASSIST WITH NAUSEA. CALL LIGHT WITHIN REACH. WILL MONITOR
--- NOTE | 2019-06-17 | NUR ---
MEDS APPEAR EFFECTIVE. SLEEPING. RESPIRATIONS EASY. VSS. CALL LIGHT WITHIN REACH
--- NOTE | 2019-06-17 03:00 | NUR ---
SLEEPING. NO DISTRESS NOTED. O2 IN USE. CALL LIGHT WITHIN REACH
--- NOTE | 2019-06-17 03:11 | NUR ---
PT DID NOT WANT WOKEN UP AT THIS TIME. PT IS NOT ON HIS HOME UNIT
--- NOTE | 2019-06-17 06:17 | NUR ---
REQUESTED AND RECEIVED MS CONTIN PER PRN ORDER FOR COMPLAINTS OF ABD PAIN RATING A 7. CALL LIGHT WITHIN REACH. WILL MONITOR FOR EFFECTIVENESS
[2019-06-17 08:00] VITALS: BP 114/54
[2019-06-17 08:19] VITALS: BP 132/72
--- NOTE | 2019-06-17 10:00 | NUR ---
Manager Drug in to talk to patient. Patient states lives at home alone with his family and his girlfriend checking in on him. There are 0 steps in the home. Physician: Dr. Federico Gross Pharmacy: [facility] services: has had [facility] previously but not currently Patient's level of ADLs: INDEPENDENT Patient has working utilities: yes DME: nebulizer Follow-up physician's appointment after d/c: he prefers to make his own follow up appt after discharge Does patient want to access PORTAL?: no Discharge plan discussed with patient. He lives at home alone with his family and girlfriend checking in on him. He is independent in his ADLs and ambulation. Discussed home health care services and he denies any home needs at this time. When medically stable he will be discharged to home. His girlfriend will transport on discharge. PATRICK MULLER
--- NOTE | 2019-06-17 10:40 | NUR ---
PATIENT RETURNED FROM [facility], WILL RECEIVE THE OTHER PART OF STRESS TEST TOMORROW MORNING.
[2019-06-17 12:00] VITALS: BP 110/50
--- NOTE | 2019-06-17 13:30 | NUR ---
MEDICATED WITH PRN PO OXYCODONE FOR ABDOMINAL PAIN.
--- NOTE | 2019-06-17 13:30 | NUR ---
MEDICATED WITH PRN PO ROXYCODONE FOR ABDOMINAL PAIN.
--- NOTE | 2019-06-17 14:10 | NUR ---
PRN PO ROXYCODONE EFFECTIVE FOR PAIN, PER PATIENT.
--- NOTE | 2019-06-17 14:10 | NUR ---
PRN MS CONTIN EFFECTIVE, PER PATIENT.
[2019-06-17 16:00] VITALS: BP 124/70
--- NOTE | 2019-06-17 18:03 | NUR ---
MEDICATED WITH PRN PO ROXYCODONE FOR ABDOMINAL PAIN.
--- NOTE | 2019-06-17 18:35 | NUR ---
PRN ROXYCODONE EFFECTIVE, PER PATIENT.
[2019-06-17 20:00] VITALS: BP 118/55
--- NOTE | 2019-06-17 21:01 | NUR ---
PATIENT MEDICATED WITH MS CONTIN FOR C/O PAIN IN THE ABDOMEN RATED 7/10 ON A 0/10 PAIN SCALE. WILL MONITOR
--- NOTE | 2019-06-17 22:42 | NUR ---
24 HR chart check completed.
--- NOTE | 2019-06-17 23:50 | NUR ---
MEDICATED WITH PRN SEROQUEL FOR C/O SLEEPLESSNESS. WILL MONITOR
[2019-06-18] VITALS: BP 116/63
--- NOTE | 2019-06-18 02:07 | NUR ---
PATIENT RESTING IN BED WITH NO NEEDS MADE. BED IN LOWEST POSITION, CALL LIGHT IN REACH
--- NOTE | 2019-06-18 06:31 | NUR ---
MEDICATED WITH PRN OXY FOR C/O PAIN. WILL MONITOR
[2019-06-18 07:59] VITALS: BP 108/58
--- NOTE | 2019-06-18 10:00 | NUR ---
Head Cleaning Porter in to see patient. No new needs or request at this time. He denies any home needs. When medically stable he will be discharged to home. Per multidisciplinary discharge planning meeting treating COPD.
--- NOTE | 2019-06-18 11:00 | NUR ---
PRN MS CONTIN EFFECTIVE, PER PATIENT.
[2019-06-18 11:57] VITALS: BP 118/63
--- NOTE | 2019-06-18 13:01 | NUR ---
Spoke to Arabella, patient's waiver services wind site manager, regarding discharge planning. Discharge timeframe unknown at this time. Possibly tomorrow or Sunday per patient. Arabella asked if she could be called when the patient is discharged at [phone].
[2019-06-18 16:05] VITALS: BP 129/61
--- NOTE | 2019-06-18 16:57 | NUR ---
MEDICATED WITH PRN ROXYCODONE FOR ABDOMINAL PAIN.
--- NOTE | 2019-06-18 18:19 | NUR ---
PRN ROXYCODONE EFFECTIVE, PER PATIENT.
[2019-06-18 20:00] VITALS: BP 120/79
--- NOTE | 2019-06-18 22:12 | NUR ---
DR MOYER NOTIFIED OF PT'S BLOOD GLUCOSE READING, NEW ORDERS REC'D.
--- NOTE | 2019-06-18 22:18 | NUR ---
MS CONTIN GIVEN PER PT REQUEST FOR PAIN TO ABDOMEN RATED 6/10
--- NOTE | 2019-06-18 23:56 | NUR ---
OXY IR POVIDED PER PT REQUEST RATED 7/10 ABDOMINAL PAIN R/T OSTOMY
[2019-06-19] VITALS: BP 118/63
--- NOTE | 2019-06-19 02:50 | NUR ---
PT RESTING ON BACK, RESPIRATIONS EASY AND REGULAR ON HOME CPAP MACHINE. PT OFFERS NO COMPLAINTS. DIET SHITAL VIRY PROVIDED PER PT REQUEST. BED IN LOWEST LOCKED POSITION, CALL LIGHT WITHIN REACH, SIDE RAILS UP X2.
--- NOTE | 2019-06-19 10:00 | NUR ---
PATIENT REQUESTED AND RECIEVED MS CONTIN FOR PAIN RATED AT A 7. STATES IT IS ABDOMINAL PAIN. WILL MONITOR FOR EFFECTIVENESS.
--- NOTE | 2019-06-19 10:00 | NUR ---
Core Paster in to see patient. No new needs or request at this time. He denies any home needs. When medically stable he will be discharged to home. Per multidisciplinary discharge planning meeting and discussing discharge planning with Dr. Gross the patient is scheduled to be discharged tomorrow.
[2019-06-19 12:00] VITALS: BP 153/80
--- NOTE | 2019-06-19 12:15 | NUR ---
PT STATES RELIEF FROM PAIN MEDS. WILL CONTINUE TO MONITOR.
--- NOTE | 2019-06-19 14:30 | NUR ---
PT REQUESTED AND RECIEVED ROXICODONE FOR ABDOMINAL PAIN. WILL MONITOR FOR EFFECTIVNESS.
--- NOTE | 2019-06-19 15:20 | NUR ---
PT SLEEPING. PREVIOUS PAIN MED CONSIDERED EFFECTIVE.
[2019-06-19 16:00] VITALS: BP 114/59
--- NOTE | 2019-06-19 17:36 | NUR ---
PT REQUESTED AND RECIEVED MS CONTIN FOR ABDOMINAL PAIN. WILL MONITOR FOR EFFECTIVENESS.
[2019-06-19 20:00] VITALS: BP 114/64
--- NOTE | 2019-06-19 23:06 | NUR ---
DR CONTRERAS NOTIFIED OF PT'S CRITICAL BG.
[2019-06-20] VITALS: BP 118/66
--- NOTE | 2019-06-20 02:18 | NUR ---
PT RESTING ON BACK, HOB ELEVATED. REG AND EASY RESPIRATIONS ON 3L VIA NC, NO DISTRESS NOTED. BED IN LOWEST, LOCKED POS, CALL LIGHT WITHIN REACH, SIDE RAILS X2.
[2019-06-20 08:00] VITALS: BP 134/78
--- NOTE | 2019-06-20 09:00 | NUR ---
Make Up Operator Helper in to see patient. No new needs or request at this time. He denies any home needs. When medically stable he will be discharged to home. Per multidisciplinary discharge planning meeting and discussing discharge planning with Dr. Gross the patient is scheduled to be discharged tomorrow, Sunday.
[2019-06-20 16:00] VITALS: BP 117/64
--- NOTE | 2019-06-20 16:29 | NUR ---
PT'S BLOOD GLUCOSE IS 506. STAT GLUCOSE REFLEX ORDERED. ORDERS FOR INSULIN AMOUNT OBTAINED FROM DR. PASCUAL.
--- NOTE | 2019-06-20 16:30 | NUR ---
ATTEMPTED TO ADMINISTER IV SOLUMEDROL THROUGH ACCESSED MEDIPORT. MEDIPORT IS UNABLE TO BE FLUSHED. ENTERED A PER POLICY ORDER FOR HEPARIN TO FLUSH THE MEDIPORT. MEDIPORT STILL UNABLE TO BE FLUSHED
--- NOTE | 2019-06-20 17:46 | NUR ---
MULTIPLE ATTEMPTS MADE TO ACCESS PT'S MEDIPORT. PLACEMENT FELT RIGHT BUT COULD NOT FLUSH OR GET BLOOD RETURN. DR. CONTRERAS NOTIFIED. ORDERS OBTAINED TO D/C MARIAH.
--- NOTE | 2019-06-20 18:40 | NUR ---
PATIENT'S WOUND VAC DRESSING IS CHANGED AT THIS TIME. SUCTION IS GOOD AND THE MACHINE IS NOT ALARMING WHEN I LEFT THE ROOM. SETTING ARE CORRECT AND SUCTION IS IN GREEN RANGE. UPON REASSESSING THE WOUND VAC THE PATIENT HAS DISCONNECTED THE WOUND VAC HOSE AND IS USING FOUL LANGUAGE TOWARDS MYSELF AND STAFF WHEN TOLD THAT IT NEEDED TO REMAIN INTACT. THE PATIENT IS NONCOMPLIANT WITH LEAVING THE HOSE INTACT. IT IS UNCERTAIN IF THE SUCTION AND SEAL ARE STILL GOOD. PT REFUSES TO ALLOW ME TO REASSESS SITE.
[2019-06-20 20:00] VITALS: BP 115/65
--- NOTE | 2019-06-20 22:08 | NUR ---
PATIENTS LINENS CHANGED AND BED REMADE PER PT REQUEST. OFFERS NO FURTHER REQUESTS AT THIS TIME. WILL CONT TO MONITOR. BED IN LOWEST LOCKED POS, CALL LIGHT WITHIN REACH, SIDE RAILS X1.
[2019-06-21] VITALS: BP 113/61
--- NOTE | 2019-06-21 00:53 | NUR ---
MS CONTIN GIVEN PER PT REQUEST FOR PAIN TO ABDOMEN RATED 6/10. CALL LIGHT IN REACH.
[2019-06-21 08:00] VITALS: BP 130/82; BP 136/69
--- NOTE | 2019-06-21 08:08 | NUR ---
Medicated with ms contin per prn order for complaints of abdominal pain related to ostomy. States pain 03/05.
[2019-06-21 12:00] VITALS: BP 117/68
--- NOTE | 2019-06-21 13:28 | NUR ---
Pt requesting something for pain rated 7/10. I brought ms garber to pt room. Pt became very upset states that he rotated his pain medication all day yesterday and that he was not going to allow me "to mess it up". I attempted to explain to pt that ms garber is rated for pain 6-10 and this is why I bought this in and that is is every 4 hours and it was been over 4 hours since I bought it in. I notified pt that I could get the oxy-ir if thats what he wante and that I would notify Dr regarding this. Pt states I was not to let the Dr know and Pt continued to yell and states that this is how he takes it and this is how he wants it and continued to go on and on in an unreasonable way. I removed unwanted MS garber, excused myself from room as pt continued to yell out, and med was wasted and witnessed by Jaclyn Hoover RN. I was going to take oxy-ir in room when pt requested to speak to charge nurse. Charge nurse to medicate pt.
--- NOTE | 2019-06-21 13:39 | NUR ---
PT REQUESTED AND RECEIVED PO OXY 15MG PER PRN ORDER FOR C/O ABD PAIN. CHRONIC PAIN PER PT. PATIENT STATES HE TAKES OXY EVERY DAY AROUND THIS TIME. WILL MONITOR EFFECTIVENESS. CALL LIGHT WITHIN REACH.
--- NOTE | 2019-06-21 14:07 | NUR ---
Report given to Berenice Alcazar who is assuming care of pt.
[2019-06-21 16:00] VITALS: BP 122/63
--- NOTE | 2019-06-21 17:02 | NUR ---
MS CONTIN GIVEN PER ORDER FOR COMPLAINTS OF 9/10 PAIN. WILL CONTINUE TO MONITOR.
--- NOTE | 2019-06-21 18:30 | NUR ---
PER PT, "PAIN MEDICATION HELPED MY PAIN"
[2019-06-21 20:00] VITALS: BP 131/74
[2019-06-22] VITALS: BP 125/72
--- NOTE | 2019-06-22 02:35 | NUR ---
24 HR chart check completed.
--- NOTE | 2019-06-22 02:42 | NUR ---
PATIENT REQUESTING PAIN MEDICATION FOR ABDOMINAL PAIN RELATED TO COLOSTOMY , RATED 7/10 ON 0/10 SCALE. OXYCODONE ADMINISTERED PRESCRIBED. WILL MONITOR FOR EFFECTIVENESS.
--- NOTE | 2019-06-22 03:42 | NUR ---
PATIENT RESTING WITH EYES CLOSED.RESPIRATIONS EASY AND UNLABORED. NO DISTRESS NOTED.CALL LIGHT WITHIN REACH. WILL MONITOR.
--- NOTE | 2019-06-22 05:54 | NUR ---
PATIENT REQUESTING PAIN MEDICATION FOR ABDOMINAL PAIN RATED 7/10 ON 0/10 SCALE. MS CONTIN ADMINISTERED PRESCRIBED. WILL MONITOR FOR EFFECTIVENESS.
[2019-06-22 08:00] VITALS: BP 129/65
--- NOTE | 2019-06-22 08:40 | NUR ---
PT C/O ABDOMINAL PAIN, RATES PAIN 6 ON PAIN SCALE 0-10. MEDICATED OXYCODONE PO PER PRN ORDER, SEE EMAR. CALL LIGHT IN REACH. SEE SHIFT ASSESSMENT.
--- NOTE | 2019-06-22 09:45 | NUR ---
PT STATES MEDICATION HELPS. NO C/O AT THIS TIME. CALL LIGHT IN REACH.
[2019-06-22 12:00] VITALS: BP 110/64
--- NOTE | 2019-06-22 13:41 | NUR ---
PT C/O ABDOMINAL PAIN, RATES PAIN 6 ON PAIN SCALE 0-10. MEDICATED WITH MSCONTIN PO PER PRN ORDER, SEE EMAR. CALL LIGHT IN REACH.
[2019-06-22 16:00] VITALS: BP 116/67
--- NOTE | 2019-06-22 16:00 | NUR ---
PT RESTING IN BED. RESP-EASY AND REGULAR. NO C/O AT THIS TIME. CALL LIGHT IN REACH. SEE SHIFT ASSESSMENT.
--- NOTE | 2019-06-22 18:00 | NUR ---
PT PULSE OX 96% RA WALKED IN HALLWAY RETURNED TO ROOM AND PULSE OX DRDOP 92% ON ROOM AIR. DR. CONTRERAS NOTIFIED OF RESULTS.
--- NOTE | 2019-06-22 19:05 | NUR ---
Discharge instructions reviewed with patient/family. Patient receptive and verbalizes understanding. Follow-up care arranged. Written instructions given to patient/family. HEPLOCK REMOVED 2X2 APPLIED. HOLTER REMOVED. PT AMBULATORY OFF THE FLOOR FOR DISCHARGE. AILIN GUAJARDO
--- NOTE | 2019-06-23 11:48 | NUR ---
Message left for Ronald Bell waiver services welfare case worker, at [phone] regarding patient's discharge from the hospital.
== END 2019-06-22 19:34 | disposition home or self-care (01) | DRG 189 ==
LOC: ED 14:40 → EDHOLD 16:07 → 5E 16:07
PROVIDERS: Emergency Medicine; ADMIT Internal Medicine
DX: J96.20 Acute and chronic respiratory failure, unspecified whether with hypoxia or hypercapnia (principal); J44.1 Chronic obstructive pulmonary disease with (acute) exacerbation; I50.22 Chronic systolic (congestive) heart failure; D68.51 Activated protein C resistance; D68.9 Coagulation defect, unspecified; N39.0 Urinary tract infection, site not specified; E78.2 Mixed hyperlipidemia; K21.0 Gastro-esophageal reflux disease with esophagitis; G25.81 Restless legs syndrome; I11.0 Hypertensive heart disease with heart failure; N40.1 Benign prostatic hyperplasia with lower urinary tract symptoms; F32.9 Major depressive disorder, single episode, unspecified; F41.1 Generalized anxiety disorder; M47.896 Other spondylosis, lumbar region; R33.8 Other retention of urine; E66.01 Morbid (severe) obesity due to excess calories; G43.909 Migraine, unspecified, not intractable, without status migrainosus; M54.5 Low back pain; G89.4 Chronic pain syndrome; E11.65 Type 2 diabetes mellitus with hyperglycemia; T38.0X5A Adverse effect of glucocorticoids and synthetic analogues, initial encounter; Z85.038 Personal history of other malignant neoplasm of large intestine; Z90.49 Acquired absence of other specified parts of digestive tract; Z88.6 Allergy status to analgesic agent; Z88.1 Allergy status to other antibiotic agents; Z88.5 Allergy status to narcotic agent; Z88.8 Allergy status to other drugs, medicaments and biological substances; Z86.010 Personal history of colon polyps; Z86.718 Personal history of other venous thrombosis and embolism; Z85.72 Personal history of non-Hodgkin lymphomas; Z82.5 Family history of asthma and other chronic lower respiratory diseases; Z80.8 Family history of malignant neoplasm of other organs or systems; Z82.49 Family history of ischemic heart disease and other diseases of the circulatory system; Z83.3 Family history of diabetes mellitus; Z68.37 Body mass index [BMI] 37.0-37.9, adult; Y92.89 Other specified places as the place of occurrence of the external cause

== ENCOUNTER 2019-06-26 21:57 | Inpatient (IN) | payer OTHER ==
[~2019-06-26] VITALS: Ht 187.9 cm; Wt 135.7 kg
--- NOTE | ~2019-06-26 | EKG ---
[place], [place] ELECTROCARDIOGRAM REPORT NAME: CLARE KUMARI UNIT #: [id number] ROOM: 407 DOCTOR: IMMANUEL DRAFT REPORT BIRTHDATE: [birth year] [facility] Test Date: 2019-06-26 Test Time: 22:07:52 Pat Name: CLARE KUMARI Department: Room: 407 Gender: M [employer] Maker: : [id number] Requested By: RADHA RENO Order Number: [id number] Reading MD: Maci Somers MD Measurements Intervals [place] Rate: 110 P: 51 TN: 167 QRS: 3 QRSD: 102 T: 34 QT: 339 QTc: 459 Interpretive Statements Sinus tachycardia Compared to ECG 06/16/2019 20:06:03 Sinus rhythm no longer present ST (T wave) deviation no longer present Electronically Signed On 06-27-2019 15:51:09 PDT by Maci Somers MD CM:EKGRPT:ELECTROCARDIOGRAM REPORT 06 1551 RADHA CARLIN DRAFT REPORT RADHA RENO DO
--- NOTE | ~2019-06-26 | PR ---
[place], [place] PROGRESS NOTE [facility] [id number] #: [id number] ROOM: 407 DOCTOR: JESSICA MOYER MD BIRTHDATE: [birth year] DOS: 06/28/2019 SUBJECTIVE: The patient is doing well, does not have any new complaints. OBJECTIVE: VITAL SIGNS: Blood pressure is 120/60, pulse of 80, respirations 18, temperature 97.9. LUNGS: Clear. HEART: Regular. ABDOMEN: Soft. EXTREMITIES: Without any edema. ASSESSMENT AND PLAN: 1. Acute exacerbation of chronic obstructive pulmonary disease. The patient has had multiple admissions to the hospital. He was just admitted and discharged on the , came back on again with continuous complaint of shortness of breath. The patient is again on maximal treatment plan, which is being continued today. If stable, the plan is to discharge to home tomorrow. 2. Benign hypertension, controlled. 3. Chronic pain syndrome, on opiates. JESSICA MOYER MD CM:PNTRANS [id number] JESSICA MOYER MD 06/28/19 1337 interface
--- NOTE | ~2019-06-26 | WRIGHTHP ---
[place], [place] PATIENT HISTORY AND PHYSICAL EXAM NAME: CLARE KUMARI [facility] #: [id number] UNIT #: [id number] ROOM: 407 DOCTOR: SPARKLE CONTRERAS MD BIRTHDATE: [birth year] DOS: 06/26/2019 HISTORY OF PRESENT ILLNESS: The patient is a 53-year-old gentleman with past medical history of: 1. COPD. 2. Obesity, BMI of 37.8. 3. Mixed hyperlipidemia. 4. Type 2 diabetes mellitus, uncontrolled. 5. Gastroesophageal reflux disease and esophagitis. 6. Chronic lower back pains. 7. Factor V Leiden deficiency with coagulopathy, treated with apixaban. 8. Restless leg syndrome. 9. BPH and urinary retention. 10. Chronic systolic type CHF. The patient presented to Emergency Department ____ to [facility] with increased shortness of breath and tachycardia. The patient is not feeling comfortable enough to be discharged to home after treatment in the ER and had to be admitted for increased shortness of breath, wheezing and tachycardia with heart rate of 117 beats per minute recorded. SYSTEMS REVIEW: CARDIOVASCULAR: No chest pain. GASTROINTESTINAL: No nausea, vomiting, diarrhea or constipation. RESPIRATORY: Increasing shortness of breath and wheezing. FAMILY HISTORY: Noncontributory. HOME MEDICATIONS: Insulin, Flomax, ropinirole, Lipitor, venlafaxine, Daliresp, propranolol, lisinopril, glipizide, Bumex, Apixaban, Protonix, buspirone, oxycodone. ALLERGIES: Known allergies to CODEINE, METFORMIN, QUINOLONES, RITUXAN, TYLENOL. PHYSICAL EXAMINATION: GENERAL APPEARANCE: Alert and oriented x 3, in no visible distress. HEENT AND NECK: Extraocular movements are intact. Sclerae are anicteric. Oral mucosa is moist and clean. No obvious facial weakness. Neck is supple without any lymphadenopathy. No thyromegaly. No JVD. No carotid arterial bruits. LUNGS: The patient has expiratory wheezing all over on lung auscultation. CARDIOVASCULAR SYSTEM: Heart rate is regular in rate and rhythm. S1 and S2 normally audible. No significant murmur or any other abnormal cardiac sounds. ABDOMEN: Obesity and colostomy. EXTREMITIES: Without significant cyanosis or edema. Warm to touch. CENTRAL NERVOUS SYSTEM: Alert and oriented x 3. Cranial nerves II-XII are intact. Speech is normal. The patient is able to move all extremities. Normal muscle strength. Deep tendon reflexes are equal on both sides. Plantars were downgoing. IMPRESSION: [place], [place] PATIENT HISTORY AND PHYSICAL EXAM NAME: CLARE KUMARI UNIT #: [id number] ROOM: 407 DOCTOR: SPARKLE CONTRERAS MD BIRTHDATE: [birth year] 1. Acute exacerbation of chronic obstructive pulmonary disease, which is recurrent. He has ____ disease and tachycardia, all improving with nebulizer treatments, oxygen and antibiotic and bilevel positive airway pressure. Dr. Kaur is following. 2. Type 2 diabetes mellitus with corticosteroid-induced hyperglycemia, being treated with insulin. 3. Obesity with body mass index of 37.8. The patient to work with Dietary. 4. Mixed hyperlipidemia, treated with Lipitor. 5. Factor V Leiden deficiency, treated with apixaban. 6. Chronic systolic type congestive heart failure, compensated. The patient normally stays on Bumex. SPARKLE CONTRERAS MD CM:HISPHYS:PATIENT HISTORY AND PHYSICAL EXAMINATION [id number] SPARKLE CONTRERAS MD 06/27/19 1529 interface
--- NOTE | ~2019-06-26 | PR ---
[place], [place] PROGRESS NOTE NAME: CLARE KUMARI UNIT #: [id number] ROOM: 407 DOCTOR: PHYLLIS VILCHIS MD,MATIAS BIRTHDATE: [birth year] DOS: 06/29/2019 SUBJECTIVE: The patient noted comfortable at this time, resting on the bed. Reporting continued gradual reduction and improvement in symptoms of shortness of breath. There were no symptoms of fever or chills. Minimal cough. There were no sputum expectoration. OBJECTIVE: VITAL SIGNS: Normal temperature, respiratory rate 20, heart rate 99, blood pressure 110/68, and pulse oxygen saturation on 2 liters nasal cannula 98% saturation recorded. HEENT: Examination shows head was atraumatic. Eyes nonicterus. NECK: Supple. CARDIOVASCULAR: S1, S2 audible. LUNGS: Noted without any wheezing or crackles. ABDOMEN: Soft, nontender. IMPRESSION: 1. The patient with resolving acute exacerbation of bronchial asthma at this time. 2. History of obstructive sleep apnea disorder. 3. Chronic obesity. PLAN OF MANAGEMENT: No changes in plan of management. Continue current therapy at this time without any changes. Potential discharge home in the morning could be considered. MATIAS FERGUSON MD CM:PNTRANS [id number] MATIAS VILCHIS MD 06/29/19 1154 interface
--- NOTE | ~2019-06-26 | PR ---
[place], [place] PROGRESS NOTE NAME: CLARE KUMARI [facility] #: [id number] UNIT #: [id number] ROOM: 407 DOCTOR: JESSICA MOYER MD BIRTHDATE: [birth year] DOS: 06/29/2019 SUBJECTIVE: The patient is about the same, does not have any new complaints. OBJECTIVE: VITAL SIGNS: Blood pressure is 104/64, pulse of 90, respirations 17, and temperature 97.8. LUNGS: Diminished breath sounds. A few scattered wheezes heard this morning. HEART: Regular. ABDOMEN: Obese, soft. EXTREMITIES: Without any edema. LABORATORY DATA: Blood sugar was 270 this morning. ASSESSMENT AND PLAN: 1. Acute exacerbation of chronic obstructive pulmonary disease, on maximal treatment plan. 2. Type 2 diabetes mellitus, insulin-dependent with steroid-induced hyperglycemia. 3. Benign hypertension, controlled. 4. Chronic pain syndrome. Continue current medications. Hopefully, can be discharged soon. JESSICA MOYER MD CM:PNTRANS [id number] JESSICA MOYER MD 06/29/19 1319 interface
--- NOTE | ~2019-06-26 | DS ---
[place], [place] DISCHARGE SUMMARY NAME: CLARE KUMARI [facility] #: [id number] UNIT #: [id number] ROOM: 407 DOCTOR: SPARKLE CONTRERAS MD BIRTHDATE: [birth year] DOS: 06/30/2019 DISCHARGE DIAGNOSES: 1. Acute exacerbation of chronic obstructive pulmonary disease. 2. Acute respiratory failure. 3. Obstructive sleep apnea. 4. Acute exacerbation of moderate persistent asthma. 5. Benign essential hypertension. 6. Type 2 diabetes mellitus. 7. Corticosteroid-induced hyperglycemia. 8. Obesity, BMI of 37.8. 9. Gastroesophageal reflux disease and esophagitis. 10. Chronic low-back pain. 11. Factor V Leiden deficiency with coagulopathy, treated with apixaban. 12. Restless leg syndrome. 13. Benign prostatic hypertrophy and urinary retention. 14. Chronic systolic type congestive heart failure. HOSPITAL COURSE: The patient presented to the Emergency Department again with increasing shortness of breath and wheezing with tachycardia and was again diagnosed as having acute exacerbation of COPD with wheezing all over and was admitted, started on oxygen, nebulizer treatments, corticosteroids and antibiotic and Dr. Kaur, the disease and insect control boss, also saw him. The patient appears to have achieved maximum benefit from this admission and will be discharged to home to be followed up at the office with me this week. 1. Factor V Leiden deficiency, treated with anticoagulation with apixaban. 2. Mixed hyperlipidemia. The patient remains on Lipitor, is followed with blood work. 3. Obesity with BMI of 37.8. The patient working on diet, worked with Dietary. 4. Type 2 diabetes mellitus and corticosteroid-induced hyperglycemia covered with sliding scale of insulin. The patient is going home on a Medrol Dosepak and his Lantus insulin has been increased to 80 units while he is on prednisone and then we will go back down to 60 units, which he was taking before. 5. Acute exacerbation of chronic obstructive pulmonary disease, treated as mentioned above and improved. 6. Hyperglycemia. Blood sugars were ranging between 200-300 mostly. LABORATORY DATA: Cardiac enzymes were negative. Chest x-ray without acute infiltrates. DISCHARGE MANAGEMENT: Medrol Dosepak, Lantus insulin 80 units, which we dropped down to 60 units after his blood sugars are below 200 at home. The patient is doing sugar testing. Lispro insulin 30 units every meal. DuoNeb four times a day as needed, Flomax 0.4 mg a day, ropinirole 1 mg daily, Lipitor 10 mg a day, Tradjenta 5 mg a day, venlafaxine 150 mg daily, Daliresp 500 mcg daily, propranolol 80 mg a day, lisinopril 5 mg a day, glipizide 10 mg a day, gabapentin 900 mg 3 times a day, Bumex 2 mg daily, apixaban 5 mg b.i.d., Seroquel 25 mg every 6 hours as needed, buspirone 10 mg 3 times a day, oxycodone 15 mg every 4 hours p.r.n., morphine sulfate 30 mg every 4 hours p.r.n. for pain. Follow up at the office with me this week. [place], [place] DISCHARGE SUMMARY NAME: CLARE KUMARI UNIT #: [id number] ROOM: [facility] DOCTOR: SPARKLE CONTRERAS MD BIRTHDATE: [birth year] SPARKLE CONTRERAS MD CM:DISCHARG [id number] T: SPARKLE CONTRERAS MD 07/04/19 1203 FRIDA BRADFORD.Smith
--- NOTE | ~2019-06-26 | EKG ---
[place], [place] ELECTROCARDIOGRAM REPORT NAME: CALRE KUMARI UNIT #: [id number] ROOM: 407 DOCTOR: IMMANUEL DRAFT REPORT BIRTHDATE: [birth year] [facility] Test Date: 2019-06-27 Test Time: 01:14:24 Pat Name: CLARE KUMARI Department: Room: 407 Gender: M Research Engineer: Harvey Tim : 1965 Requested By: RADHA RENO Order Number: [id number] Reading MD: Maci Somers MD Measurements Intervals Iraan Rate: 99 P: 41 OH: 173 QRS: -2 QRSD: 106 T: 22 QT: 347 QTc: 446 Interpretive Statements Sinus rhythm Compared to ECG 06/16/2019 20:06:03 ST (T wave) deviation no longer present Electronically Signed On 06-27-2019 15:54:29 PDT by Maci Somers MD CM:EKGRPT:ELECTROCARDIOGRAM REPORT [id number] 1554 RADHA CARLIN DRAFT REPORT RADHA RENO DO
--- NOTE | ~2019-06-26 | EKG ---
[place], [place] ELECTROCARDIOGRAM REPORT NAME: CLARE KUMARI UNIT #: [id number] ROOM: 407 DOCTOR: IMMANUEL DRAFT REPORT BIRTHDATE: [birth year] [facility] Test Date: 2019-06-27 Test Time: 04:33:14 Pat Name: CLARE KUMARI Department: Room: 407 Gender: M Fibreglass Laminator: Michelle Zarate : 1965 Requested By: RADHA RENO Order Number: [id number] Reading MD: Mcai Somers MD Measurements Intervals Pearl Rate: 90 P: 48 UT: 175 QRS: 3 QRSD: 107 T: 28 QT: 366 QTc: 448 Interpretive Statements Sinus rhythm Baseline wander in lead(s) V1 Compared to ECG 06/16/2019 20:06:03 ST (T wave) deviation no longer present Electronically Signed On 06-27-2019 15:54:42 PDT by Maci Somers MD CM:EKGRPT:ELECTROCARDIOGRAM REPORT [id number] 1554 RADHA CARLIN DRAFT REPORT RADHA RENO DO
--- NOTE | ~2019-06-26 | CON ---
[place], [place] REPORT OF CONSULTATION NAME: CLARE KUMARI [facility] #: [id number] UNIT #: [id number] ROOM: 407 DOCTOR: PHYLLIS VILCHIS MDMATIAS BIRTHDATE: [birth year] DOS: 06/28/2019 PULMONARY CONSULTATION, EVALUATION AND MANAGEMENT CONSULTATION REQUESTED BY: Dr. Gross. REASON FOR CONSULTATION: Assess the patient for acute exacerbation of his bronchial asthma. HISTORY OF PRESENT ILLNESS: This is a 53-year-old white male patient known with history of allergic rhinitis, obstructive sleep apnea disorder and bronchial asthma, presented to the Emergency Room, as the patient developed symptoms of increased shortness of breath at home the past couple of days. Symptoms have been gradually worsened, associated with tightness in the chest, the patient had some nonproductive cough. He was also reported symptoms of wheezing as well. The patient has been assessed in the Emergency Room, admitted to the hospital for further care. He stated that shortness of breath has been noted somewhat decreased to yesterday. Denies symptoms of chest pain. Coughing has been noted mild, but nonproductive. Denies symptoms of hemoptysis. Denies any symptoms of acute chest pain at this time. Dissection of the chest, which was noted previously seemed to be better. REVIEW OF SYSTEMS: Remaining systems were reviewed, they were noted all negative. PAST MEDICAL HISTORY: Known with history of: 1. Obesity. 2. Uncomplicated moderate persistent bronchial asthma. 3. Obstructive sleep apnea disorder, which has been treated with the CPAP. 4. Allergic rhinitis. 5. Intervertebral disk disease. 6. Hypercoagulable status with factor V Leiden deficiency. 7. History of past deep venous thrombosis. 8. Gastroesophageal reflux. 9. Type 2 diabetes mellitus. 10. Bipolar disorder. 11. General anxiety disorder. 12. History of cancer of the colon as well with partial colectomy done in 10/2018. 13. History of restless legs syndrome. 14. History of non-Hodgkin lymphoma in remission. PAST SURGICAL HISTORY: 1. IVC filter placement. 2. Bronchoscopy. 3. Fistulectomy. 4. Partial colectomy for the cancer and bladder repair in 10/2018. SOCIAL HISTORY: The patient lives at home. , has one child. Denies any tobacco, alcohol or illicit drug use. [place], [place] REPORT OF CONSULTATION [facility]: [facility] [id number] UNIT #: [id number] ROOM: 407 DOCTOR: PHYLLIS VILCHIS MD,MATIAS BIRTHDATE: [birth year] FAMILY HISTORY: The patient's father at the age of 74-year-old, complication of pancreatic cancer. Mother a 36-year-old, complication of cancer of the cervix. CURRENT MEDICATIONS: Which has been administered on this hospitalization were noted as use of Lantus insulin, Flomax, Requip, Lipitor, Januvia, venlafaxine, Daliresp, propranolol, lisinopril, glipizide, gabapentin, Bumex, Eliquis, Protonix, Seroquel, albuterol with a nebulizer and some other p.r.n. meds. DRUG ALLERGIES: Noted as allergies: 1. CODEINE. 2. DARVOCET. 3. METFORMIN. 4. NUBAIN. 5. LEVAQUIN. 6. RITUXAN. PHYSICAL EXAMINATION: GENERAL: A 53-year-old white male patient currently noted awake, alert, without any distress. Height of 6 feet 2 inches, weight of 299 pounds, BUN 38.4. VITAL SIGNS: Normal temperature, respiratory rate 20-18, heart rate 87-104, 170 noted. Admission blood pressure 120/70 to 120/60. Pulse oxygen saturation recorded 2 liters nasal cannula 100% saturation on 4 liter previously 98% saturation on admission. HEAD, EYES, EARS, NOSE, AND THROAT: Head was atraumatic, chronic obesity. Head was atraumatic. CARDIOVASCULAR SYSTEM: S1, S2 audible. LUNGS: Noted with moderate decreased breath sounds. There was no wheezing. There were no crackles. Mild expiratory wheezing present in the lungs bilaterally. ABDOMEN: Soft, obese, nontender. Bowel sounds present. EXTREMITIES: No edema, clubbing, cyanosis. MUSCULOSKELETAL: Without acute deformities. CENTRAL NERVOUS SYSTEM: Noted generally intact. LABORATORY DATA: CBC on 06/26/2019, WBC count 11.7, hemoglobin 10.7, platelet count were normal. PT/PTT on 06/26/2019, was normal. CMP on 06/25/2019 glucose 330, BUN and creatinine normal, sodium 132. Troponin 3 sets cycle in 06/27/2019 were normal. IMPRESSION: 1. The patient will be currently admitted to the hospital, was noted with acute exacerbation of bronchial asthma without any evidence of acute bronchitis or infection. Mild tachycardia secondary to the exacerbation of bronchial asthma. 2. Obstructive sleep apnea disorder. 3. Allergic rhinitis. 4. Restless legs syndrome. PLAN OF MANAGEMENT: The patient will be started, Pulmicort Respules at this [place], [place] REPORT OF CONSULTATION NAME: CLARE KUMARI UNIT #: [id number] ROOM: 407 DOCTOR: PHYLLIS VILCHIS MD,MATIAS BIRTHDATE: [birth year] time and corticosteroids, intravenous or oral would not be necessary. Continuation of the bronchodilators as already ordered. Other plan of therapy as in progress will be continued. Supportive care, plan of management as well. Possible discharge home consideration in the next 24 hours could be considered depends on improvement of the respiratory status. Upon discharge, he will resume his usual home medication and bronchial asthma and outpatient assessment could be planned upon discharge. MATIAS FERGUSON MD CM:CONSTR:REPORT OF CONSULTATION 1455 06/28/19 [id number] interface
--- NOTE | ~2019-06-26 | PR ---
[place], [place] PROGRESS NOTE [id number] UN[facility] #: [id number] ROOM: 407 DOCTOR: PHYLLIS VICLHIS MD,MATIAS BIRTHDATE: [birth year] DOS: 06/30/2019 PULMONARY PROGRESS NOTE SUBJECTIVE: The patient has been noted comfortable at this time, stating reduction in respiratory symptoms and was expecting that he will be discharged home today. Denies symptoms of fever or chills. Denies symptoms of hemoptysis or any ____ chest pain. Oxygen supplementation was continued. OBJECTIVE: VITAL SIGNS: For the patient which were recorded this morning, sitting on the chair this morning. Normal temperature, respiratory rate 18, heart rate of 102, and blood pressure 120/71. Pulse oxygen saturation on 2 liters nasal cannula 97% saturation recorded. HEENT: Examination shows head was atraumatic. Eyes nonicterus. NECK: Supple. CARDIOVASCULAR: S1, S2 audible. LUNGS: Noted without any wheezing or crackles at the present time. ABDOMEN: Soft, nontender. EXTREMITIES: No new change. IMPRESSION: 1. Stable respiratory status noted, resolving acute exacerbation of bronchial asthma. Reduction of the respiratory symptom. 2. Obstructive sleep apnea disorder and other illnesses. PLAN OF TREATMENT: Discharge planning per primary care physician of this patient. Continue current therapy, plan of management as in progress. Usual care, other supportive plan of treatment and therapies. MATIAS FERGUSON MD CM:PNTRANS [id number] MATIAS VILCHIS MD 06/30/19 1226 interface
[2019-06-26 21:57] VITALS: BP 136/74
[~2019-06-26 21:57] MED LIST changes: +BIPAP; +BREO ELLIPTA 11 EACH IH; +HUMALOG100 UNIT/1 SQ
[2019-06-26 22:34] LABS: BASO # 0.1 10*3/uL (0.0-0.1); BASO % 0.6 % (0.0-1.0); EOS # 0.3 10*3/uL (0.0-0.4); EOS % 2.1 % (1.0-4.0); HEMATOCRIT 36.1 % (42.0-52.0); HEMOGLOBIN 10.7 g/dl (14.0-18.0); LYMPH # 3.9 10*3/uL (1.3-4.4); LYMPH % 33.5 % (27.0-41.0); MEAN CELL VOLUME 69.6 fl (80.0-94.0); MEAN CORPUSCULAR HGB 20.6 pg (27.0-31.0); MEAN CORPUSCULAR HGB CONC 29.6 g/dl (33.0-37.0); MEAN PLATELET VOLUME 10.1 fl (9.6-12.3); MONO # 1.3 10*3/uL (0.1-1.0); MONO % 11.2 % (3.0-9.0); NEUT % 51.2 % (47.0-73.0); PLATELET COUNT AUTOMATED 371 10*3/uL (130-400); RED BLOOD COUNT 5.19 10*6/uL (4.50-5.90); RED CELL DISTRI WIDTH 20.4 % (0-14.5); WHITE BLOOD COUNT 11.7 10*3/uL (4.8-10.8)
[2019-06-26 22:44] LABS: ACT PARTIAL THROMBO TIME 25.2 SECONDS (20.0-32.1); INTERNATIONAL NORM RATIO 0.8 (2.0-3.5)
--- NOTE | 2019-06-26 22:46 | NUR ---
PHYSICIAN IS AT THE BEDSIDE.
--- NOTE | 2019-06-26 23:05 | NUR ---
PHYSICIAN IS AT THE BEDSIDE.
[2019-06-26 23:21] LABS: ALBUMIN 3.3 gm/dl (3.1-4.5); ALKALINE PHOSPHATASE 155 U/L (45-117); BUN 15 mg/dl (7-24); CHLORIDE 98 mmol/L (98-107); CREATININE 1.19 mg/dL (0.70-1.30); SGOT/AST 21 IU/L (3-35); SGPT/ALT 31 U/L (12-78); SODIUM 132 mmol/L (136-145); TOTAL PROTEIN 7.5 gm/dL (6.4-8.2); TROPONIN I < 0.015 ng/ml (<0.045)
[2019-06-27 01:00] VITALS: BP 109/64
--- NOTE | 2019-06-27 01:00 | NUR ---
A 53, admitted to , under the services of Dr. DIANE KUMAR,SPARKLE Priest with a diagnosis of COPD. Chief complaint is SHORTNESS OF BREATH. Patient arrived via stretcher from ER. Monitor applied. Initial assessment completed. Vital signs taken and recorded. DR. DIANE KUMAR,SPARKLE Priest notified of admission to the unit. Orders received. See assessment for past medical history, medications and allergies. Patient and/or family oriented to unit. [facility] visitation policy reviewed. Clothing/patient valuable form completed. OTONIEL FISCHER
[2019-06-27] MEDS ORDERED: BREO ELLIPTA 11 EACH INH (02:28)
--- NOTE | 2019-06-27 07:30 | NUR ---
BEDSIDE REPORT RECEIVED ON PT AT THIS TIME. PT LYING IN BED, EYES OPEN, ALERT ORIENTED AND PLEASANT MOOD. PT DENIES ANY DISTRESS AT THIS TIME. ALL SAFETY MEASURES IN PLACE. CALL LIGHT IN REACH.
[2019-06-27 08:00] VITALS: BP 110/66
--- NOTE | 2019-06-27 09:00 | NUR ---
Battery Starter in to talk to patient. Patient states lives at home alone with his family and his girlfriend checking in on him. There are 0 steps in the home. Physician: Dr. Federico Gross Pharmacy: [facility] Home health services: has had [facility] previously but not currently Patient's level of ADLs: INDEPENDENT Patient has working utilities: yes DME: nebulizer Follow-up physician's appointment after d/c: he prefers to make his own follow up appt after discharge Does patient want to access PORTAL?: no Discharge plan discussed with patient. He lives at home alone with his family and girlfriend checking in on him. He is independent in his ADLs and ambulation. Discussed home health care services and he denies any home needs at this time. When medically stable he will be discharged to home. His girlfriend will transport on discharge. PATRICK MULLER
[2019-06-27 09:29] VITALS: BP 110/58
--- NOTE | 2019-06-27 10:00 | NUR ---
ASSESSMENT COMPLETE. ALL MEDICATIONS GIVEN AT THIS TIME. NO S/S OF DISTRESS.PT WATCHING TELEVISION AND ORDERING BREAKFAST. CALL LIGHT IN REACH.
--- NOTE | 2019-06-27 10:04 | NUR ---
PT GIVEN MORPHINE PER EMAR PRN ORDERS FOR C/O GENERALIZED PAIN. WILL MONITOR FOR EFFECTIVENESS. PT SITTING UP IN BED, ALERT ORIENTED. RESPIRATIONS EASY AND UNLABORED ON 3L. CALL LIGHT IN REACH.
--- NOTE | 2019-06-27 11:04 | NUR ---
MORPHINE EFFECTIVE PER PT.
--- NOTE | 2019-06-27 12:49 | NUR ---
MADE AWARE OF CONSULT, STATED PATIENT CAN USE CPAP AT NIGHT.
[2019-06-27 13:00] VITALS: BP 118/70
--- NOTE | 2019-06-27 15:12 | NUR ---
PATIENT MEDICATED WITH MORPHINE FOR 8/10 FOR ABD PAIN AND SEROQUEL FOR ANXIETY. WILL MONITOR
--- NOTE | 2019-06-27 15:14 | NUR ---
PATIENT REQUESTING TO BE SEEN BY CARDIOLOGY DURING STAY, MADE AWARE, STATED THAT WAS FINE. PATIENT STATED HE HAS SEEN , CONSULT PLACED FOR HIM.
--- NOTE | 2019-06-27 15:36 | NUR ---
CONSULT OFFICE MADE AWARE OF NEW CONSULT. STATED MESSAGE WILL BE SENT
[2019-06-27 16:00] VITALS: BP 106/72
--- NOTE | 2019-06-27 16:12 | NUR ---
MORPHINE AND SEROQUEL EFFECTIVE
[2019-06-27 20:00] VITALS: BP 110/58
[2019-06-28] VITALS: BP 120/60
--- NOTE | 2019-06-28 02:40 | NUR ---
24 HR chart check completed.
[2019-06-28 08:00] VITALS: BP 120/703
--- NOTE | 2019-06-28 09:58 | NUR ---
RUI STATES THAT HE IS IN PAIN AND IS REQUESTING PRN MORPHINE. HE RATES HIS PAINA 6/10. PRN MORPHINE PO GIVEN AT THUIS TIME.
--- NOTE | 2019-06-28 11:55 | NUR ---
PT STATES THAT HE IS IN PAIN AND IS REQUESTING HIS OXYCODONE. PT RATES THE PAIN A 03/05. PRN OXYCODONE PO IS GIVEN AT THIS TIME.
[2019-06-28 12:00] VITALS: BP 133/71
--- NOTE | 2019-06-28 13:54 | NUR ---
PT STATES HE IS IN PAIN AND IS REQUESTING MORPHINE. PT RATES THE PAIN A 6/10. MOPRHINE PO IS GIVEN AT THIS TIME.
--- NOTE | 2019-06-28 15:54 | NUR ---
24 HR chart check completed.
[2019-06-28 16:00] VITALS: BP 119/72
--- NOTE | 2019-06-28 16:30 | NUR ---
SITTING UP IN BED WATCHING TV WITH NO ACUTE DISTRESS NOTED. RESPIRATIONS EASY. LUNGS DIMINISHED WITH EXP WHEEZES. PULSE OX 96% 2L. CLAIMS NON-PROD COUGH, NONE NOTED. TRACE BLE EDEMA. CALL LIGHT WITHIN REACH. NO VOICED COMPLAINTS
--- NOTE | 2019-06-28 16:40 | NUR ---
BSG 150. DECLINED COVERAGE
--- NOTE | 2019-06-28 17:03 | NUR ---
REQUESTED AND RECEIVED MS CONTIN PER PRN ORDER FOR COMPLAINTS OF ABD PAIN RATING A 5. CALL LIGHT WITHIN REACH. WILL MONITOR FOR EFFECTIVENESS
--- NOTE | 2019-06-28 18:00 | NUR ---
STATES EARLIER MS CONTIN "HELPING"
--- NOTE | 2019-06-28 19:48 | NUR ---
TOOK OVER CARE OF PT AT THIS TIME. PT IS SITTING UP IN BED, ALERT ORIENTED AND PLEASANT MOOD. PT IS CURRENTLY RECEIVING A BREATHING TREATMENT WITH NO S/S OF DISTRESS OR SHORTNESS OF BREATH. ALL SAFETY MEASURES IN PLACE, HOB ELEVATED. CALL LIGHT IN REACH.
[2019-06-28 20:00] VITALS: BP 112/61
--- NOTE | 2019-06-28 21:50 | NUR ---
PT HS MEDICATIONS GIVEN AT THIS TIME. INSULIN GIVEN PER S/S ON EMAR. PT REQUEST MS CONTIN AND SEROQUEL FOR GENERALIZED PAIN AND RESTLESSNESS. WILL MONITOR FOR EFFECTIVENESS OF MEDICATION. NO OTHER S/S OF DISTRESS REPORTED OR OBSERVED, PT SITTING UP IN BED. SAFETY MEASURES IN PLACE. CALL LIGHT IN REACH.
--- NOTE | 2019-06-28 22:50 | NUR ---
SEROQUEL AND MS CONTIN EFFECTIVE AT THIS TIME.
[2019-06-29] VITALS: BP 105/64
--- NOTE | 2019-06-29 00:39 | NUR ---
PT GIVEN ROXICODONE 15 MG PO AT THIS TIME FOR C/O GENERALIZED PAIN, RATES PAIN AN "8" OUT OF 10. WILL MONITOR FOR EFFECTIVENESS. PT SITTING UP IN BED, HOB ELEVATED. ALL SAFETY MEASURES IN PLACE. CALL LIGHT IN REACH.
--- NOTE | 2019-06-29 01:39 | NUR ---
OXYCODONE ASSUMED EFFECTIVE AT THIS TIME. PT RESTING IN BED, SUPPLEMENTAL OXYGEN IN PLACE VIA NC. RESPIRATIONS EASY AND UNLABORED. PT SLEEPING. NOT AROUSED AT THIS TIME. ALL SAFETY MEASURES IN PLACE. CALL LIGHT IN REACH.
--- NOTE | 2019-06-29 07:24 | NUR ---
24 HR chart check completed.
--- NOTE | 2019-06-29 07:25 | NUR ---
DR MOYER HERE TO ASSESS PATIENT AND DISCUSS PLAN OF CARE
[2019-06-29 08:00] VITALS: BP 110/68
--- NOTE | 2019-06-29 08:48 | NUR ---
RESTING IN BED WITH NO ACUTE DISTRESS NOTED. RESPIRATIONS EASY. LUNGS DIMINISHED WITH EXP WHEEZES. PULSE OX 99% 2L. CLAIMS INFREQUENT NON-PROD COUGH. COLOSTOMY PATENT. MEDICATED WITH MS CONTIN PER PRN ORDER FOR COMPLAINTS OF ABD PAIN RATING AN 8. TRACE BLE EDEMA. CALL LIGHT WITHIN REACH.
--- NOTE | 2019-06-29 10:00 | NUR ---
SITTING IN RECLINER WATCHING TV. STATES RELIEF FROM EARLIER MEDS. CALL LIGHT WITHIN REACH. NO FURTHER VOICED COMPLAINTS
[2019-06-29 12:00] VITALS: BP 130/73
--- NOTE | 2019-06-29 13:19 | NUR ---
REQUESTED AND RECEIVED MS CONTIN PER PRN ORDER FOR COMPLAINTS OF ABD PAIN RATING A 5. CALL LIGHT WITHIN REACH. WILL MONITOR
--- NOTE | 2019-06-29 15:00 | NUR ---
STATES RELIEF FROM EARLIER MEDS. CALL LIGHT WITHIN REACH. NO FURTHER VOICED COMPLAINTS
[2019-06-29 16:00] VITALS: BP 104/59
--- NOTE | 2019-06-29 16:29 | NUR ---
MEDICATED WITH ROXICODONE PER PRN ORDER FOR COMPLAINTS OF ABD PAIN RATING A 5. CALL LIGHT WITHIN REACH. WILL MONITOR FOR EFFECTIVENESS
--- NOTE | 2019-06-29 18:00 | NUR ---
STATES RELIEF FROM EARLIER MEDS. O2 IN USE. CALL LIGHT WITHIN REACH. NO FURTHER VOICED COMPLAINTS
[2019-06-29 20:00] VITALS: BP 109/59
--- NOTE | 2019-06-29 20:14 | NUR ---
1939 RESTING IN BED WATCHING TV. NO DISTRESS NOTED. RESPIRATIONS EASY. CALL LIGHT IN REACH. NO DISTRESS,
--- NOTE | 2019-06-29 21:29 | NUR ---
SEROQUEL PER REQUEST FOR SLEEP AND MS CONTIN FOR GENERALIZED PAIN, WILL MONITOR.
--- NOTE | 2019-06-29 22:14 | NUR ---
EARLIER MEDS EFFECTIVE. RESTING IN BED WITHOUT FURTHER C/O'S.
[2019-06-30] VITALS: BP 111/71
--- NOTE | 2019-06-30 00:49 | NUR ---
RESTING IN BED WITH EYES CLOSED. APPEARS TO BE SLEEPING.
--- NOTE | 2019-06-30 06:15 | NUR ---
SLEPT WELL THIS SHIFT. REMAINS WITHOUT DISTRESS. CONDITION GUARDED.
[2019-06-30 08:00] VITALS: BP 128/71
--- NOTE | 2019-06-30 08:30 | NUR ---
Notified Dr. Gross of Dr. Somers's consult regarding echo on Sunday or as an outpatient and the possibility of discharge this morning from Dr. Kaur's standpoint if stable. No new orders received.
--- NOTE | 2019-06-30 08:45 | NUR ---
PT COMPLAIN OF PAIN 6/10 ABDOMEN, MS CONTIN GIVEN. PT SITTING UP IN CHAIR, EATING BREAKFAST. NO OTHER NEEDS STATED AT THIS TIME. WILL MONITOR FOR PAIN MEDICATION EFFECTIVENESS AND FOR FURTHUR NEEDS.
--- NOTE | 2019-06-30 10:14 | NUR ---
PT STATES PAIN MEDICTION EFFECTIVE. PT SITTING UP IN CHAIR, NO NEEDS STATED AT THIS TIME
--- NOTE | 2019-06-30 10:30 | NUR ---
Rampman in to see patient. He is sitting up in his bedside chair without distress noted. No new needs or request at this time. He denies any home needs. When medically stable he will be discharged to home.
--- NOTE | 2019-06-30 11:25 | NUR ---
PT STATES PAIN ABDOMEN 8/10, PRN OXYIR GIVEN. WILL MONITOR FOR EFFECTIVENESS
[2019-06-30 12:00] VITALS: BP 136/86
--- NOTE | 2019-06-30 14:17 | NUR ---
PT STATES PAIN IN ABDOMEN /10, MS CONTIN GIVEN. SEE EMAR, WILL MONITOR FOR EFFECTIVENESS
--- NOTE | 2019-06-30 15:40 | NUR ---
PT ASSESSED FOR HOME O2 FOLLOWS: SAT 97 RA AT REST HR 107 @ REST BP 115/58@ REST PT WALKING AROUND 4 E X 3 LAPS. ( AT LEAST 6 MINUTES ) SAT STAYING 91-93% ON RA DURING AMBULATION. 88% SEEN FOR 1 SECOND AND RIGHT TO 93%. HR DID GO TO 149. DR. CONTRERAS INFORMED. SOME SOB NOTED AFTER LAST LAP. ENCOURAGED PT TO PURSE LIP BREATH WHILE WALKING. PT STATED IF I KEPT TELLING HIM HOW TO BREATH HE WAS GOING BACK TO ROOM. EXPLAINED TO PT IT WAS MY JOB TO SHOW HIM HOW TO HELP HIS BREATHING WHEN WALKING. SAT 95% RA DURING RECOVERY HR 107 AND BP 122/64 DR. CONTRERAS INFORMED.
--- NOTE | 2019-06-30 15:45 | NUR ---
AMBULATED PATIENT TWO LAPS AROUND NURSING UNIT, ON ROOM AIR PATIENTS PULSEOX REMAINED BETWEEN 94-97%, PT WAS TACHYPENIC AND TACHYCARDIAC UP TO 120 HEART RATE. PT STATES HE "WOULD FEEL MORE COMFORTABLE" WITH OXYGEN AT HOME. PT UNDERSTANDS HE DID NOT QUALIFY AT THIS TIME FOR HOME OXYGEN. DR. CONTRERAS MADE AWARE. AWARE THAT PATIENT REQUESTING TO TALK TO HIM PRIOR TO DISCHRGE. PT REQUESTED ANOTHER AMBULATION PULSEOX CHECK WITH RESPIRATORY.
[2019-06-30 16:00] VITALS: BP 109/58
[2019-06-30] MEDS ORDERED: MEDROL DOSEPAK4 MG PO (16:15)
--- NOTE | 2019-06-30 16:51 | NUR ---
Discharge instructions reviewed with patient. Patient receptive and verbalizes understanding. Follow-up care understood Written instructions given to patient. pt has no questions on discharge instructions CURTIS PEREIRA
--- NOTE | 2019-06-30 17:01 | NUR ---
mediport flushed with heparin per protocol then deaccessed. covered with dressing. pt waiting for ride home. declines wheelchair
--- NOTE | 2019-06-30 17:40 | NUR ---
PT DISCHARGED, DECLINED WHEELCHAIR
== END 2019-06-30 17:01 | disposition home or self-care (01) | DRG 189 ==
LOC: ED 21:57 → EDHOLD 23:45 → 4E 23:45
PROVIDERS: Emergency Medicine; ADMIT Internal Medicine
DX: J96.20 Acute and chronic respiratory failure, unspecified whether with hypoxia or hypercapnia (principal); J44.1 Chronic obstructive pulmonary disease with (acute) exacerbation; N39.0 Urinary tract infection, site not specified; I50.22 Chronic systolic (congestive) heart failure; D68.51 Activated protein C resistance; J45.41 Moderate persistent asthma with (acute) exacerbation; G43.909 Migraine, unspecified, not intractable, without status migrainosus; E66.9 Obesity, unspecified; I11.0 Hypertensive heart disease with heart failure; E78.2 Mixed hyperlipidemia; K21.0 Gastro-esophageal reflux disease with esophagitis; M54.5 Low back pain; G25.81 Restless legs syndrome; E11.65 Type 2 diabetes mellitus with hyperglycemia; G47.33 Obstructive sleep apnea (adult) (pediatric); F31.9 Bipolar disorder, unspecified; F41.1 Generalized anxiety disorder; G89.4 Chronic pain syndrome; N40.1 Benign prostatic hyperplasia with lower urinary tract symptoms; R33.8 Other retention of urine; E78.1 Pure hyperglyceridemia; T38.0X5A Adverse effect of glucocorticoids and synthetic analogues, initial encounter; Z79.4 Long term (current) use of insulin; Z88.6 Allergy status to analgesic agent; Z88.8 Allergy status to other drugs, medicaments and biological substances; Z88.1 Allergy status to other antibiotic agents; Z79.899 Other long term (current) drug therapy; Z79.84 Long term (current) use of oral hypoglycemic drugs; Z79.51 Long term (current) use of inhaled steroids; Z79.01 Long term (current) use of anticoagulants; Z85.038 Personal history of other malignant neoplasm of large intestine; Z86.010 Personal history of colon polyps; Z86.718 Personal history of other venous thrombosis and embolism; Z90.49 Acquired absence of other specified parts of digestive tract; Z82.5 Family history of asthma and other chronic lower respiratory diseases; Z80.8 Family history of malignant neoplasm of other organs or systems; Z85.71 Personal history of Hodgkin lymphoma; Z80.0 Family history of malignant neoplasm of digestive organs; Z79.891 Long term (current) use of opiate analgesic; Y92.89 Other specified places as the place of occurrence of the external cause; Z68.38 Body mass index [BMI] 38.0-38.9, adult

== ENCOUNTER 2019-07-25 08:28 | Inpatient (IN) | payer OTHER ==
[~2019-07-25] VITALS: Ht 187.9 cm; Wt 136.3 kg
[2019-07-25 08:28] VITALS: BP 140/88
[~2019-07-25 08:28] MED LIST changes: +BREO ELLIPTA 11 EACH INH
[2019-07-25 09:01] LABS: BASO # 0.1 10*3/uL (0.0-0.1); BASO % 0.7 % (0.0-1.0); EOS # 0.3 10*3/uL (0.0-0.4); EOS % 3.8 % (1.0-4.0); HEMOGLOBIN 9.1 g/dl (14.0-18.0); LYMPH # 3.1 10*3/uL (1.3-4.4); LYMPH % 45.6 % (27.0-41.0); MEAN CELL VOLUME 70.2 fl (80.0-94.0); MEAN CORPUSCULAR HGB CONC 28.4 g/dl (33.0-37.0); MONO # 0.7 10*3/uL (0.1-1.0); NEUT # 2.7 10*3/uL (2.3-7.9); NEUT % 39.3 % (47.0-73.0); PLATELET COUNT AUTOMATED 324 10*3/uL (130-400); RED BLOOD COUNT 4.56 10*6/uL (4.50-5.90); RED CELL DISTRI WIDTH 19.7 % (0-14.5); WHITE BLOOD COUNT 6.9 10*3/uL (4.8-10.8)
[2019-07-25 09:16] LABS: ALBUMIN 3.3 gm/dl (3.1-4.5); ALKALINE PHOSPHATASE 138 U/L (45-117); BUN 12 mg/dl (7-24); CHLORIDE 103 mmol/L (98-107); SGOT/AST 18 IU/L (3-35); SGPT/ALT 36 U/L (12-78); SODIUM 137 mmol/L (136-145)
[2019-07-25 11:02] VITALS: BP 146/82
--- NOTE | 2019-07-25 11:02 | NUR ---
PT HAD 2L NC ON WHEN I TOOK REPORT AND TOOK OVER CARE PULSE OX WASD 98 %
[2019-07-25 11:28] VITALS: BP 136/75
--- NOTE | 2019-07-25 11:28 | NUR ---
A 53, admitted to 5E, under the services of JESSICA Ballesteros MD with a diagnosis of COPD EXACERBATION. Chief complaint is SHORTNESS OF BREATHE, COUGH. Patient arrived via stretcher from ER. Monitor applied. Initial assessment completed. Vital signs taken and recorded. JESSICA BALLESTEROS MD notified of admission to the unit. Orders received. See assessment for past medical history, medications and allergies. Patient and/or family oriented to unit. [address] visitation policy reviewed. Clothing/patient valuable form completed. PATIENT ON 3L O2 NC. PATIENT HAS A COLOSTOMY THAT HE CHANGES HIMSELF. VINCENT ELENA
--- NOTE | 2019-07-25 12:16 | NUR ---
SPOKE WITH DR MOYER. NOTIFIED HER OF COMPLETED MED REC. ORDERS GIVEN TO CONTINUE ALL HOME MEDICATIONS, DUONEBS Q4H, TITRATE OXYGEN TO KEEP PULSE OX 92%>, SOLU-MEDROL 20MG TID, AND AZITHROMYCIN 500 MG IV DAILY.
[2019-07-25 16:00] VITALS: BP 128/58
--- NOTE | 2019-07-25 17:30 | NUR ---
Patient resting quietly with no c/o discomfort. Respirations easy and regular. Vital signs stable. No overt distress. IVNCENT ELENA
[2019-07-25 20:00] VITALS: BP 116/54
--- NOTE | 2019-07-25 20:35 | NUR ---
OXYCODONE GIVEN PER PT C/O 04/05 CHEST PAIN. EKG ORDERED. SEROQUIL PROVIDED PER ANXIETY.
--- NOTE | 2019-07-25 21:48 | NUR ---
PATIENT REPORTS CHEST PAIN HAS RESOLVED AND APPEARS LESS ANXIOUS. SPO2 100% VIA 3L NC. HR LOW 100'S.
[2019-07-26] VITALS: BP 114/59
--- NOTE | 2019-07-26 03:49 | NUR ---
Shift chart check completed.
[2019-07-26 08:00] VITALS: BP 133/72
--- NOTE | 2019-07-26 08:05 | NUR ---
PT. OFF CPAP AND PLACED ON 3L NC.
[2019-07-26 12:00] VITALS: BP 127/76
--- NOTE | 2019-07-26 13:50 | NUR ---
ACCESSED RIGHT CHEST MEDIPORT PER POLICY.PT TOLERATED WELL.
[2019-07-26 16:00] VITALS: BP 130/67
--- NOTE | 2019-07-26 16:38 | NUR ---
WENT TO ROOM TO ANSWER CALL LIGHT PT UPSET AND THAT HE NEEDED TO GET IN SHOWER AND HIS COLOSTOMY BAG HAD "BLEW UP". WHILE ATTEMPTING TO EXPLAIN WE COULD NOT GET HIS NEWLY ACCESSED MEDIPORT DRESSING WET, PT BECAME VERY UPSET AND SCREAMING AT ME. PT STATED "YOU'LL DO WHATEVER I WANT YOU TO DO AND IF THAT MEANS CHANGE MY DRESSING THAT'S WHAT YOU'LL DO BECAUSE YOUR MY NURSE".AT THIS TIME I TOLD THE PT THAT HE WILL NOT SPEAK TO ME IN THIS MANNER AND ITS INAPPROPRIATE" I THEN TOLD PT TO LET ME FINISH MY STATEMENT. I ADVISED THE PT THAT OUR SHOWERS WERE EQUIPPED WITH REMOVABLE SHOWER HEADS. I THEN ADVISED PT TO HEAD OINTO SHOWER WHILE I ASSISTED THE PT TO SHOWER.
--- NOTE | 2019-07-26 17:03 | NUR ---
PT REPLACED COLOSTOMY BAG HIMSELF.COMPLETE LINEN CHANGE PROVIDED.HOUSEKEEPING NOTIFIED TO MOP UP FLOOR.PT PLEASANT,COOPERATIVE AND APPROPRIATE. VOICES NO OTHER NEEDS AT THIS TIME. CALL LIGHT IN REACH.
--- NOTE | 2019-07-26 18:39 | NUR ---
Patient resting quietly with no c/o discomfort. Respirations easy and regular on RA. Vital signs stable. No overt distress.Call light in reach. PABLO GARCIA
[2019-07-26 20:00] VITALS: BP 134/74
--- NOTE | 2019-07-26 20:16 | NUR ---
PAIN RATED 8/10. 15 MG OXY IR PROVIDED PER PT REQUEST PER PRN ORDER. PATIENT IS VERY AGITATED, FISTS CLENCHED AND FIDGETY. STATES HE DOES NOT WANT ANXIETY MEDICATION UNTIL HE IS READY FOR BED. WILL LEELEE KHOURYNSS FOR PAIN. .CALL LIGHT IN REACH
--- NOTE | 2019-07-26 21:48 | NUR ---
PATIENT STATES OXYCODONE IS EFFECTIVE. SEROQUIL GIVEN FOR ANXIETY. PATIENT IS STILL FIDGETY AND APPEARS UPSET, TAKING A PHONE CALL DURING THIS NURSE PASSING HIS MEDICATION. PM MEDICATIONS TAKEN WITH EASE. REQUESTING ADDITIONAL INSULIN COVERAGE FOR BLOOD SUGAR READING OF 482. CALL LIGHT IN REACH.
[2019-07-27] VITALS: BP 127/66
[2019-07-27 08:00] VITALS: BP 113/65
--- NOTE | 2019-07-27 10:23 | NUR ---
SEROQUEL 25 MG GIVEN FOR C/O ANXIETY.
--- NOTE | 2019-07-27 13:52 | NUR ---
MS CONTIN 30 MG GIVEN FOR C/O GENERALIZED PAIN,02/03.
[2019-07-27 16:00] VITALS: BP 130/79
--- NOTE | 2019-07-27 16:50 | NUR ---
OXY IR 15 MG GIVEN FOR C/O GENERALIZED PAIN,05/06. SEROQUEL 25 MG GIVEN AT THIS TIME PER PT REQUEST FOR ANXIETY.
--- NOTE | 2019-07-27 22:18 | NUR ---
SEROQUEL AND OXYCODONE GIVEN PER PT REQUEST FOR ABD PAIN AND ANXIETY. PATIENT IS FIDGETY AND LEGS APPEAR RESTLESS. CURTIS BARTON.
--- NOTE | 2019-07-27 23:48 | NUR ---
PRN MEDICATIONS EFFECTIVE. PATIENT RESTING.
[2019-07-28] VITALS: BP 116/67
--- NOTE | 2019-07-28 02:35 | NUR ---
OXY IR GIVEN PER PT REQUEST FOR C/O ABDOMINAL PAIN RATED 8/10. CALL LIGHT INR EACH
[2019-07-28 08:00] VITALS: BP 138/72
--- NOTE | 2019-07-28 08:00 | NUR ---
VITALS WITHIN THEIR NORMAL RANGES. SAVANNA. A&O X3. LUNG SOUNDS WHEEZE UPON EXPIRATION THROUGHOUT. HEART SOUNDS NORMAL. BOWEL SOUNDS ACTIVE X4. PO2 98% R/A. PT REMOVED CPAP AND SWITCHED TO OXYGEN 3L PER NASAL CANULA. PT REFUSESD TO TITRATE. MEDIPORT IV SITE INTACT WITH NO SIGNS OF INFECTION. COLOSTOMY STOMA PINK AND BEEFY. INTACT WITH NO SIGNS OF INFECTION. DISCOLORATION ON RIGHT LOWER LEG WITH CLOSED SORES COVERED WITH SCABS. NO SIGNS ON INFECTION. SMALL VLOSED SORED WITH SCABS WITH NO SIGN OF INFECTION OR DISCOLORATION IN LEFT LOWER LEG. NONPITTING +1 EDMEA AT BILATERAL ANKLES. POSITIVE PEDAL PULSES. CAP REFILL <3 SECONDS. 0/10 PAIN AT THIS TIME. PT IS PLEASANT AND COOPERATIVE. WILL CONTINUE TO ASSESS. SPNRCC JC LOERA.
--- NOTE | 2019-07-28 09:00 | NUR ---
Dietetic Aide in to talk to patient. Patient states lives at home alone with his family and his girlfriend checking in on him. There are 0 steps in the home. Physician: Dr. Federico Gross [facility]: [facility] [place] [facility]: has had [facility] previously but not currently Patient's level of ADLs: INDEPENDENT Patient has working utilities: yes DME: nebulizer Follow-up physician's appointment after d/c: he prefers to make his own follow up appt after discharge Does patient want to access PORTAL?: no Discharge plan discussed with patient. He is sitting on the edge of his bed without distress noted. He lives at home alone with his family and girlfriend checking in on him. He is independent in his ADLs and ambulation. Discussed home health care services and he denies any home needs at this time. When medically stable he will be discharged to home. His girlfriend will provide transportation on discharge. Treating COPD. PATRICK MULLER
--- NOTE | 2019-07-28 09:20 | NUR ---
CLARE KUMARI [id number] Please refer to the physician's history and physical for past medical history, comorbid conditions, and allergies. 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 pt stated this is from his cpap machine from home it happened a couple weeks ago and it is actually getting smaller he stated this occurs when his mask change Patient stated he had some concerns with patient relations and this nurse asked if I was able to assist in anyway and if I could get him a extraction supervisor or a director of the unit. He stated he took Niels information and will contact him once he is discharged because he doesn't feel that anything will be done during his stay here. I informed the patient that I will notify Niels as soon as I leave the patient room that he would like to speak with him and he stated that is okay but nothing will get done. I also stated that I could have the inpatient information systems manager come in and he stated she never did anything before when he spoke to her. This nurse informed him that the information systems manager is new here and he stated that he got her confused with someone else. Surface the patient is resting on: Isoflex SKIN PREVENTION RECOMMENDATION: 1. Pressure redistribution support surface as appropriate 2. Elevate heels 3. Remove boots/TEDS every shift and reapply 4. Head of bed 30 degrees as tolerated 5. Assess nutrition and hydration 6. Manage moisture 7. Avoid the use of containment devices while in bed 8. Use absorptive products on surfaces limit layers of linens on bed 9. Turn and reposition every 1-2 hours in bed and every 1 hour in chair as tolerated 10. Weight shifts every 15 minutes while up in chair 11. Offloading with pillows or device to keep heels elevated off bed 12. Monitor skin at least every shift 13. Inspect under medical devices twice a day WOUND TREATMENT RECOMMENDATIONS: Apply sureprep to left side of nose and cover with bandaid daily and prn for soiling Patient states he will continue to care for area at home this is the least of his worries at this time.
--- NOTE | 2019-07-28 09:40 | NUR ---
PT STATES "PAIN IS 7/10". ROXICODONE 15MG PO AND MS CONTIN 30MG PO GIVEN. WILL CONTINUE TO ASSESS.
--- NOTE | 2019-07-28 10:30 | NUR ---
ROXICODONE 15MG PO AND MS CONTIN 30MG PO WERE EFFECTIVE. PT STATES "ITS (THE PAIN) IS ABOUT A 5/10." WILL CONTINUE TO ASSESS. JC LOERA SPSCARCC.
--- NOTE | 2019-07-28 11:08 | NUR ---
SEROQUEL 25MG PO GIVEN PER PT REQUEST FOR ANXIETY. WILL CONTINUE TO ASSESS. JC LOERA SPCC.
--- NOTE | 2019-07-28 11:49 | NUR ---
BGM 378. RN NOTIFIED. NO ORDERED COVERAGE. PT RECEIVES HUMALOG 30 UNITS WITH MEALS. PT TOLERATED WELL. WILL CONTINUE TO ASSESS. [facility] LOERA [facility].
--- NOTE | 2019-07-28 11:58 | NUR ---
SEROQUEL 25MG PO GIVENPER PT REQUEST.
--- NOTE | 2019-07-28 13:37 | NUR ---
SEROQUEL 25MD PO EFFECTIVE. PT STATES "MY ANXIETY HAS GONE DOWN. JC LOERA. SPNRCC.
[2019-07-28 16:00] VITALS: BP 119/70
--- NOTE | 2019-07-28 19:00 | NUR ---
ASSUMED CARE FOR THIS PT AT THIS TIME. NO C/O VOICED. CALL LIGHT IN REACH.
[2019-07-28 20:00] VITALS: BP 140/74
--- NOTE | 2019-07-28 22:10 | NUR ---
PT MEDICATED W/SEROQUEL FOR C/O ANXIETY. PT REFUSING MAGOX. PT STATES IT HAS BEEN MAKING HIS GAS WORSE. PT TEACHING GIVEN. COLOSTOMY FULL OF AIR. PT SELF BURPED COLOSTOMY BAG. CALL LIGHT IN REACH.
--- NOTE | 2019-07-28 22:45 | NUR ---
BS 391. PT STATES THAT IS FINE AND REFUSING BLOOD DRAW.
[2019-07-29] VITALS: BP 124/69
--- NOTE | 2019-07-29 04:06 | NUR ---
PT MEDICATED W/OXY IR FOR C/O DIFFUSE ABD PAIN 04/05.
[2019-07-29 08:00] VITALS: BP 148/75
[2019-07-29] MEDS ORDERED: GLIPIZIDE10 M2 PO (08:51)
[2019-07-29] MEDS ORDERED: CEFUROXIME AXE250 MG PO (08:51)
[2019-07-29] MEDS ORDERED: PREDNISONE5 MG PO (08:51)
--- NOTE | 2019-07-29 08:55 | NUR ---
MS Contin given per patient request for c/o chronic abdomenal pain. Patient rates pain 7/10. Will monitor.
--- NOTE | 2019-07-29 09:50 | NUR ---
Patient stated that physician wanted to assess patient for home O2. Contacted Dr. Clinton to verify.
--- NOTE | 2019-07-29 10:30 | NUR ---
HOME O2 ASSESSMENT: PRE BP: 148/75, HR 105, RR, 18, PULSE OX 94% ON ROOM AIR AT REST. AMBULATED PATIENT 2 FAIRLY BRISK LAPS IN HALLWAY, PULSE OX 93%-94% ON ROOM AIR WHILE AMBULATING. POST BP: 140/78, HR 111, RR 18, PULSE OX 97% ON ROOM AIR AT REST. APPEARED TO TOLERATE WELL. RN NOTIFIED.
--- NOTE | 2019-07-29 11:39 | NUR ---
Left message with Dr. Clinton regarding discharge med order. Awaiting response.
--- NOTE | 2019-07-29 11:54 | NUR ---
Discharge instructions reviewed with patient/family. Patient receptive and verbalizes understanding. Follow-up care arranged. Written instructions given to patient/family. Patient ambulated from unit with all personal belongings accounted for. Patient was educated on new prescriptions and has appointment scheduled with Dr. Clinton this week. JOAQUIM KELLEY
== END 2019-07-29 11:54 | disposition home or self-care (01) | DRG 190 ==
LOC: ED 08:28 → 5E 10:33 → EDHOLD 10:33 → 5E 10:55
PROVIDERS: Emergency Medicine; ADMIT Internal Medicine
PROC: 5A09357 Assistance with Respiratory Ventilation, Less than 24 Consecutive Hours, Continuous Positive Airway Pressure (ICD-10-PCS; principal; 2019-07-26)
PROC: 5A09357 Assistance with Respiratory Ventilation, Less than 24 Consecutive Hours, Continuous Positive Airway Pressure (ICD-10-PCS; 2019-07-27)
DX: J44.0 Chronic obstructive pulmonary disease with (acute) lower respiratory infection (principal); J80 Acute respiratory distress syndrome; D68.51 Activated protein C resistance; J44.1 Chronic obstructive pulmonary disease with (acute) exacerbation; M54.5 Low back pain; G25.81 Restless legs syndrome; G47.33 Obstructive sleep apnea (adult) (pediatric); E11.65 Type 2 diabetes mellitus with hyperglycemia; I11.0 Hypertensive heart disease with heart failure; N40.0 Benign prostatic hyperplasia without lower urinary tract symptoms; G89.4 Chronic pain syndrome; J20.9 Acute bronchitis, unspecified; F41.9 Anxiety disorder, unspecified; E78.5 Hyperlipidemia, unspecified; G43.909 Migraine, unspecified, not intractable, without status migrainosus; E66.9 Obesity, unspecified; F32.9 Major depressive disorder, single episode, unspecified; K21.9 Gastro-esophageal reflux disease without esophagitis; I50.9 Heart failure, unspecified; T38.0X5A Adverse effect of glucocorticoids and synthetic analogues, initial encounter; Y92.89 Other specified places as the place of occurrence of the external cause; Z88.5 Allergy status to narcotic agent; Z88.6 Allergy status to analgesic agent; Z88.1 Allergy status to other antibiotic agents; Z86.718 Personal history of other venous thrombosis and embolism; Z90.49 Acquired absence of other specified parts of digestive tract; Z79.1 Long term (current) use of non-steroidal anti-inflammatories (NSAID); Z88.8 Allergy status to other drugs, medicaments and biological substances; Z85.030 Personal history of malignant carcinoid tumor of large intestine; Z87.440 Personal history of urinary (tract) infections; Z86.010 Personal history of colon polyps; Z82.5 Family history of asthma and other chronic lower respiratory diseases; Z82.49 Family history of ischemic heart disease and other diseases of the circulatory system; Z83.3 Family history of diabetes mellitus; Z80.8 Family history of malignant neoplasm of other organs or systems; Z68.38 Body mass index [BMI] 38.0-38.9, adult

== ENCOUNTER 2019-07-30 20:06 | Inpatient (IN) | payer OTHER ==
[~2019-07-30] VITALS: Ht 188 cm; Wt 142.2 kg
[2019-07-30 20:08] VITALS: BP 151/102
[2019-07-30 21:16] LABS: BASO # 0.1 10*3/uL (0.0-0.1); BASO % 0.4 % (0.0-1.0); EOS # 0.2 10*3/uL (0.0-0.4); EOS % 1.2 % (1.0-4.0); HEMATOCRIT 35.7 % (42.0-52.0); HEMOGLOBIN 10.8 g/dl (14.0-18.0); LYMPH # 4.5 10*3/uL (1.3-4.4); LYMPH % 29.5 % (27.0-41.0); MEAN CELL VOLUME 68.3 fl (80.0-94.0); MEAN CORPUSCULAR HGB 20.7 pg (27.0-31.0); MEAN CORPUSCULAR HGB CONC 30.3 g/dl (33.0-37.0); MEAN PLATELET VOLUME 9.6 fl (9.6-12.3); MONO # 1.1 10*3/uL (0.1-1.0); MONO % 7.2 % (3.0-9.0); NEUT # 9.1 10*3/uL (2.3-7.9); NEUT % 60.3 % (47.0-73.0); NUCLEATED RED BLOOD CELL 0.1 % (0.0-0.0); PLATELET COUNT AUTOMATED 454 10*3/uL (130-400); RED BLOOD COUNT 5.23 10*6/uL (4.50-5.90); RED CELL DISTRI WIDTH 19.9 % (0-14.5); WHITE BLOOD COUNT 15.1 10*3/uL (4.8-10.8)
[2019-07-30 21:32] LABS: ALBUMIN 3.5 gm/dl (3.1-4.5); CREATININE 1.51 mg/dL (0.70-1.30); POTASSIUM 4.3 mmol/L (3.5-5.1)
[2019-07-30 21:35] LABS: TOTAL PROTEIN 7.3 gm/dL (6.4-8.2)
[2019-07-30 21:40] VITALS: BP 141/99
[2019-07-30 22:28] LABS: BILIRUBIN NEGATIVE (NEGATIVE); BLOOD NEGATIVE (NEGATIVE); CLARITY CLEAR (CLEAR); COLOR YELLOW (YELLOW); GLUCOSE 3+ (NEGATIVE); KETONE NEGATIVE (NEGATIVE); LEUKO ESTERASE NEGATIVE (NEGATIVE); NITRITE NEGATIVE (NEGATIVE); PH 6.5 (5.0-9.0); UROBILINOGEN 0.2 E.U./dl (0.2-1.0)
[2019-07-30 22:30] VITALS: BP 116/63
[2019-07-30 22:51] LABS: YEAST TRACE
[2019-07-30 23:01] VITALS: BP 109/61
--- NOTE | 2019-07-30 23:55 | NUR ---
A 53, admitted to 5E, under the services of Dr. DIANE KUMAR,SPARKLE Priest with a diagnosis of ROSEMARIE, DEHYDRATION, LACTIC ACID INCREASED. Chief complaint is ABDOMINAL PAIN. Patient arrived via stretcher from ER. Initial assessment completed,NO OPEN AREAS AT THIS TIME. Vital signs taken and recorded. DR. DIANE KUMAR,SPARKLE Priest notified of admission to the unit. Orders received. See assessment for past medical history, medications and allergies. Patient oriented to unit. [address] visitation policy reviewed. Clothing/patient valuable form completed. COLOSTOMY BAG WAS PLACED. CURRENTLY HAVING ABDOMINAL TENDERNESS. AMBULATORY. LOCO TORO
[2019-07-31 08:00] VITALS: BP 137/88
--- NOTE | 2019-07-31 10:08 | NUR ---
PT COMPLAIN OF PAIN 8/, IV DIALUDID GIVEN PER ORDER. PT STATES NO OTHER NEEDS AT THIS TIME, WILL MONITOR FOR EFFECTIVNESS
--- NOTE | 2019-07-31 10:30 | NUR ---
[employer] Specialist in to talk to patient. Patient states lives at home alone with his family and his girlfriend checking in on him. There are 0 steps in the home. Physician: Dr. Federico Gross [facility]: has had [facility] previously but not currently, does have [facility] services Patient's level of ADLs: INDEPENDENT Patient has working utilities: yes DME: nebulizer Follow-up physician's appointment after d/c: he prefers to make his own follow up appt after discharge Does patient want to access PORTAL?: no Discharge plan discussed with patient. He is laying in his hospital bed stating he is not feeling well at all this time. "My kidneys are not working properly and I'm dehydrated." He lives at home alone with his family and girlfriend checking in on him. He is independent in his ADLs and ambulation. Discussed home health care services and he does have [employer] services that he would like to continue on discharge. When medically stable he will be discharged to home. His girlfriend will provide transportation on discharge. Lactic acid elevated but trending down. WBC 15.1. BUN/Cr elevated. IVFs. PATRICK MULLER
[2019-07-31 12:00] VITALS: BP 133/85
[2019-07-31 16:00] VITALS: BP 132/87
--- NOTE | 2019-07-31 16:08 | NUR ---
PT STATES PAIN ABDOMEN 04/05, DILAUDID GIVEN
[2019-07-31 20:00] VITALS: BP 134/84
--- NOTE | 2019-07-31 22:13 | NUR ---
DILAUDID GIVEN PER PATIENT REQUEST FOR COMPLAINTS OF PAIN RATED 8/10. WILL ASSESS EFFECTIVENESS.
[2019-08-01] VITALS: BP 123/68
--- NOTE | 2019-08-01 07:48 | NUR ---
Shift chart check completed.
[2019-08-01 08:00] VITALS: BP 143/70
--- NOTE | 2019-08-01 09:00 | NUR ---
Trust Administrator in to see patient. No new needs or request at this time. He denies any home needs. When medically he will be discharged to home with the resumption of his Passport services. Lactic acid is normal, IVFs, no repeat labs this morning.
[2019-08-01 12:00] VITALS: BP 146/76
--- NOTE | 2019-08-01 13:23 | NUR ---
DR. GUDINO NOTIFIED OF NEW CONSULT. WILL SEE PATIENT LATER
--- NOTE | 2019-08-01 15:29 | NUR ---
DILAUDID GIVEN PER REQUEST FOR ABDOMINAL PAIN
[2019-08-01 16:00] VITALS: BP 152/79
--- NOTE | 2019-08-01 16:39 | NUR ---
DR. GUDINO SAW THE PATIENT, FROM HIS STANDPOINT PATIENT OKAY TO DISCHARGE AND IF NEEDED FOLLOW UP WITH HIS PREVIOUS SURGON AND ONCOLOGIST.
--- NOTE | 2019-08-01 19:42 | NUR ---
PT IS AWAKE AND RESTING IN BED AT THIS TIME. HE STATES THAT HE IS BEGINNING TO EXPERIENCE PAIN AGAIN IN HIS ABDOMEN AND REQUESTING DILAUDID. PT MEDICATED PER ORDER. NO OTHER C/O MADE AT THIS TIME. RESPS ARE EASY AND NONLABORED. BED IS LOW, CALL LIGHT WITHIN REACH. WILL CONTINUE TO MONITOR.
[2019-08-01 20:00] VITALS: BP 137/67
[2019-08-02] VITALS: BP 130/78
[2019-08-02 08:00] VITALS: BP 135/74
--- NOTE | 2019-08-02 09:23 | NUR ---
MEDICATED WITH PRN IV DILAUDID FOR LEFT SIDE ABDOMINAL HERNIA PAIN.
--- NOTE | 2019-08-02 10:18 | NUR ---
PRN IV DILAUDID EFFECTIVE, PER PATIENT.
--- NOTE | 2019-08-02 11:48 | NUR ---
MEDICATED WITH PRN PO SEROQUEL FOR ANXIETY.
[2019-08-02 12:00] VITALS: BP 138/74
--- NOTE | 2019-08-02 12:30 | NUR ---
PO SEROQUEL WAS EFFECTIVE FOR ANXIETY, PER PATIENT.
--- NOTE | 2019-08-02 13:31 | NUR ---
MEDICATED WITH PRN IV DILAUDID FOR LEFT SIDE ABDOMINAL PAIN.
--- NOTE | 2019-08-02 14:27 | NUR ---
PRN IV DILAUDID EFFECTIVE, PER PATIENT.
--- NOTE | 2019-08-02 14:44 | NUR ---
MEDICATED WITH PRN IV ZOFRAN FOR C/O NAUSEA.
--- NOTE | 2019-08-02 15:29 | NUR ---
PRN IV ZOFRAN EFFECTIVE, PER PATIENT.
[2019-08-02 16:00] VITALS: BP 150/73
--- NOTE | 2019-08-02 17:47 | NUR ---
MEDICATED WITH PRN IV DILAUDID FOR NAVNEET-STOMAL LLQ PAIN.
--- NOTE | 2019-08-02 18:32 | NUR ---
PRN IV DILAUDID EFFECTIVE, PER PATIENT.
--- NOTE | 2019-08-02 21:39 | NUR ---
DILAUDID ADMINISTERED FOR PT C/O 03/05 PAIN IN LEFT LOWER QUADRANT. WILL CONTINUE TO MONITOR AND REASSESS.
--- NOTE | 2019-08-02 23:03 | NUR ---
24 HOUR CHART CHECK COMPLETE.
--- NOTE | 2019-08-02 23:20 | NUR ---
Pt is not on CPAP yet. Will continue to check on him.
[2019-08-03] VITALS: BP 128/64
--- NOTE | 2019-08-03 02:30 | NUR ---
Pt placed himself on CPAP 12. Pt resting comfortably. Alarms on and audible.
--- NOTE | 2019-08-03 03:27 | NUR ---
DILAUDID ADMINISTERED FOR PT C/O 04/05 LLQ PAIN. WILL CONTINUE TO MONITOR.
[2019-08-03 08:00] VITALS: BP 135/73
--- NOTE | 2019-08-03 08:21 | NUR ---
MEDICATED WITH PRN IV DILAUDID FOR LEFT SIDE ABDOMINAL/NAVNEET-STOMA HERNIA PAIN.
--- NOTE | 2019-08-03 09:36 | NUR ---
PRN IV DILAUDID EFFECTIVE, PER PATIENT.
[2019-08-03 12:00] VITALS: BP 128/82
--- NOTE | 2019-08-03 12:44 | NUR ---
MEDICATED WITH PRN IV DILAUDID FOR LEFT SIDE ABDOMINAL PAIN.
--- NOTE | 2019-08-03 13:03 | NUR ---
MEDICATED WITH PRN PO SEROQUEL FOR ANXIETY. PRN IV DILAUDID EFFECTIVE FOR PAIN, PER PATIENT.
--- NOTE | 2019-08-03 14:19 | NUR ---
PRN PO SEROQUEL EFFECTIVE, PER PATIENT.
--- NOTE | 2019-08-03 15:43 | NUR ---
MEDICATED WITH PRN IV ZOFRAN FOR C/O NAUSEA AT THIS TIME.
[2019-08-03 16:00] VITALS: BP 132/70
--- NOTE | 2019-08-03 16:15 | NUR ---
MEDICATED WITH PRN IV DILAUDID FOR LEFT SIDE ABDOMEN NAVNEET-STOMA HERNIA PAIN.
--- NOTE | 2019-08-03 17:39 | NUR ---
PRN IV DILAUDID EFFECTIVE, PER PATIENT.
[2019-08-03 20:00] VITALS: BP 147/68
--- NOTE | 2019-08-03 21:09 | NUR ---
DILAUDID ADMINISTERED FOR PT C/O LLQ PAIN RATED A 7/10. WILL CONTINUE TO MONITOR AND REASSESS.
--- NOTE | 2019-08-03 21:10 | NUR ---
IN TO ASSESS PATIENT AT THIS TIME. RESPIRATIONS EASY AND UNLABORED. PT C/O LLQ PAIN, DILAUDID ADMINISTERED. NO OTHER COMPLAINTS AT THIS TIME. PT STATES HE IS GOING TO "GET SOME REST". WILL CONTINUE TO MONITOR.
[2019-08-04] VITALS: BP 118/79
--- NOTE | 2019-08-04 02:14 | NUR ---
PT MEDICATED W/DILAUDID IVP FOR C/O LLQ PAIN RATED 6-7/10. PT RESTING QUIETLY IN BED. CALL LIGHT IN REACH. WILL CONTINUE TO MONITOR.
--- NOTE | 2019-08-04 03:16 | NUR ---
24 HOUR CHART CHECK COMPLETE.
[2019-08-04 05:59] LABS: BASO # 0.1 10*3/uL (0.0-0.1); BASO % 0.7 % (0.0-1.0); EOS # 0.5 10*3/uL (0.0-0.4); EOS % 4.5 % (1.0-4.0); HEMATOCRIT 32.2 % (42.0-52.0); HEMOGLOBIN 9.2 g/dl (14.0-18.0); LYMPH # 3.5 10*3/uL (1.3-4.4); LYMPH % 32.9 % (27.0-41.0); MEAN CELL VOLUME 69.7 fl (80.0-94.0); MEAN CORPUSCULAR HGB 19.9 pg (27.0-31.0); MEAN CORPUSCULAR HGB CONC 28.6 g/dl (33.0-37.0); MEAN PLATELET VOLUME 9.7 fl (9.6-12.3); MONO # 0.9 10*3/uL (0.1-1.0); MONO % 8.8 % (3.0-9.0); NEUT # 5.5 10*3/uL (2.3-7.9); PLATELET COUNT AUTOMATED 327 10*3/uL (130-400); RED BLOOD COUNT 4.62 10*6/uL (4.50-5.90); RED CELL DISTRI WIDTH 19.4 % (0-14.5); WHITE BLOOD COUNT 10.7 10*3/uL (4.8-10.8)
--- NOTE | 2019-08-04 06:14 | NUR ---
DILAUDID ADMINISTERED FOR PT C/O 03/05 LLQ PAIN. WILL CONTINUE TO MONITOR.
[2019-08-04 06:16] LABS: BUN 17 mg/dl (7-24); CHLORIDE 101 mmol/L (98-107); POTASSIUM 4.4 mmol/L (3.5-5.1); SODIUM 135 mmol/L (136-145)
--- NOTE | 2019-08-04 06:23 | NUR ---
PT REQUESTING TO RECEIVE GLIPIZIDE AND INSULIN AT 8AM.
--- NOTE | 2019-08-04 07:47 | NUR ---
REPORT RECIEVED AND PT CARE HANDED OVER TO BRENDAN,SHOES HAND SEWER AND STUDENT FROM [facility].
[2019-08-04 07:55] VITALS: BP 136/82
--- NOTE | 2019-08-04 08:00 | NUR ---
VITALS WITHIN THEIR NORMAL RANGES. PT RESTING WITH EYES CLOSED BUT EASILY AROUSED. PO2 97% R/A. SAVANNA. A&O X3. DAILY WEIGHT 306 LBS. 2 OZ.; 1 LBS. 4OZ. WEIGHT LOSS FROM 08/03/19. HEART SOUNDS NORMAL. LUNG SOUNDS EXPIRATORY WHEEZE THROUGHOUT. BOWEL SOUNDS ACTIVE X4. STOMACH SOFT, NONDISTENDED, WITH TENDERNESS IN LLQ. "ITS FROM THE HERNIA UNDER MY COLOSTOMY" PER PT WHEN ASKED ABOUT TENDERNESS. PT RATES PAIN 7/10 WITH NO REQUESTS OF PRN PAIN MEDICATIONS AT TIME OF ASSESSMENT. WILL CONTINUE TO ASSESS PAIN. STOMA PINK AND INTACT WITH NO SIGNS OF INFECTION. SKIN TURGOR NONTENTED. SKIN WARM, DRY, PINK, AND INTACT WITH DISCOLORATION ON RIGHT LOWER LEG. POSITIVE PEDAL PULSES. PT IS PLEASANT AND COOPERATIVE. JC LOERA SPNRCC.
--- NOTE | 2019-08-04 09:00 | NUR ---
Institutional Aide in to see patient. No new needs or request at this time. He denies any home needs. When medically he will be discharged to home with the resumption of his Passport services.
--- NOTE | 2019-08-04 10:35 | NUR ---
DILAUDID 1MG IVP BY BRENDAN SMITH RN PER PT REQUEST. PT STATES "MY PAIN IS UP TO A 8/10. IM READY FOR MY DILAUDID NOW." WILL CONTINUE TO ASSESS. JC LOERA SPNRCC.
--- NOTE | 2019-08-04 10:52 | NUR ---
CPAP IS AVAILABLE AT BEDSIDE
--- NOTE | 2019-08-04 11:18 | NUR ---
DILAUDID 1MG EFFECTIVE. PT RATES "PAIN IS 5/10. DILAUDID DOES WONDERS FOR ME." WILL TO CONTINUE TO ASSESS. JC LOERA SPNRCC.
[2019-08-04 12:00] VITALS: BP 133/62
--- NOTE | 2019-08-04 13:10 | NUR ---
RADIAL PULSE 130/MINUTE. "MY HEART DOES GOES FAST-I HAVE HAD A-FIB BEFORE" COLOR IS GOOD, SKIN WARM AND DAY. DENIES ALL CHEST PAIN. RECHECK OF PULSE 130 AND IRREGULAR. MANDEEP CHILDRESS NOTIFIED.
--- NOTE | 2019-08-04 13:37 | NUR ---
NOTIFIED DR AVINA OF NEW CONSULT FOR TACHYCARDIA.
--- NOTE | 2019-08-04 13:40 | NUR ---
NOTIFIED DR CONTRERAS PT WAS TAKYCARDIC. PT SITTING IN CHAIR AT BEDSIDE C/O SHORTNESS OF BREATH. PULSE IRREGULAR. BP 133/62. HR 131.STAT EKG ORDERED. ORDER FOR STAT [facility] CARDIOLOGY CONSULT RECIEVED.
--- NOTE | 2019-08-04 13:51 | NUR ---
PT RETURNED FROM OR VIA BED. REPORT RECIEVED. PT STABLE ART THIS TIME. CALL LIGHT IN REACH.
--- NOTE | 2019-08-04 13:56 | NUR ---
DR AVINA ROUNDED AND SEEN PT. NO NEW ORDERS.
--- NOTE | 2019-08-04 14:47 | NUR ---
DILAUDID 1 MG GIVEN FOR C/O GENERALIZED ABD PAIN,04/05.
[2019-08-04 16:00] VITALS: BP 134/72
--- NOTE | 2019-08-04 18:26 | NUR ---
NORCO 5/325 MG GIVEN FOR C/O ABD PAIN,05/06.
--- NOTE | 2019-08-04 18:46 | NUR ---
DILAUDID 1 MG GIVEN FOR C/O ABD PAIN,06/05.
--- NOTE | 2019-08-04 19:16 | NUR ---
24 HR chart check completed.
[2019-08-04 20:00] VITALS: BP 119/60
--- NOTE | 2019-08-04 20:30 | NUR ---
VISITING WITH ANOTHER PATIENT. NO ACUTE DISTRESS NOTED. RESPIRATIONS EASY.
--- NOTE | 2019-08-04 21:00 | NUR ---
SITTING IN BED WATCHING TV WITH NO ACUTE DISTRESS NOTED. RESPIRATIONS EASY. C/O SOB, PULSE OX 95% AND PATIENT IN NO VISIBLE DISTRESS. HR 109. LUNGS DIMINISHED WITH EXP WHEEZES. ABD SOFTLY OBESE WITH COLOSTOMY PATENT. TRACE BLE EDEMA. IV FLUIDS INFUSING PER ORDER. CALL LIGHT WITHIN REACH.
--- NOTE | 2019-08-04 21:20 | NUR ---
REQUESTED AND RECEIVED MS CONTIN AND SEROQUEL PER PRN ORDER FOR COMPLAINTS OF ABD PAIN RATING A 4 AND TO ASSIST WITH ANXIETY. CALL LIGHT WITHIN REACH. WILL MONITOR FOR EFFECTIVENESS.
--- NOTE | 2019-08-04 22:57 | NUR ---
REQUESTED AND RECEIVED DILAUDID IV PER PRN ORDER FOR COMPLAINTS OF ABD PAIN RATING A 9. PATIENT FALLING ASLEEP IMMEDIATELY UPON RECEIVING DILAUDID. CALL LIGHT WITHIN REACH.
--- NOTE | 2019-08-04 23:25 | NUR ---
MEDS APPEAR EFFECTIVE. SLEEPING
[2019-08-05] VITALS: BP 129/73
--- NOTE | 2019-08-05 00:15 | NUR ---
AWAKE, ANXIOUS. C/O SOB DESPITE PULSE OX 95% RA. CONT PULSE OX OBTAINED AND PLACED TO MONITOR.
--- NOTE | 2019-08-05 01:00 | NUR ---
MEDS EFFECTIVE. SLEEPING. RESPIRATIONS EASY. PULSE OX 98% RA.
--- NOTE | 2019-08-05 02:46 | NUR ---
IMMEDIATELY UPON AWAKENING, PATIENT REQUESTED AND RECEIVED DILAUDID IV PER PRN ORDER FOR COMPLAINTS OF ABD PAIN RATING A 7. CALL LIGHT WITHIN REACH. WILL MONITOR FOR EFFECTIVENESS
--- NOTE | 2019-08-05 04:00 | NUR ---
GENO DILAUDID APPEARS EFFECTIVE. SLEEPING. RESPIRATIONS EASY. PULSE OX 96% WITH BI-PAP AND CONT PULSE OX IN USE. IV FLUIDS MAINTAINED. CALL LIGHT WITHIN REACH
--- NOTE | 2019-08-05 06:00 | NUR ---
BSG 182, DECLINES INSULIN COVERAGE AT THIS TIME
--- NOTE | 2019-08-05 06:00 | NUR ---
RESTING WITH BI-PAP IN USE. PULSE OX 97% ON CONT PULSE OX
--- NOTE | 2019-08-05 06:30 | NUR ---
BI-PAP REMOVED BY PATIENT. CONT PULSE OX D/C'D
--- NOTE | 2019-08-05 06:57 | NUR ---
patient barely able to keep eyes open as he requests iv dilaudid. medicated per prn order for complaints of abd pain rating a 9. patient back to sleep prior to rn leaving room. will monitor
[2019-08-05 08:00] VITALS: BP 126/64; BP 138/71
--- NOTE | 2019-08-05 09:22 | NUR ---
PT BECAME UPSET AND ACCUSATORY AFTER EXPLAINING HIS DILAUDID WAS NOT DUE UNTIL 09.PT WAS UPSET I HAD NOT CHANGED DATE ON WHITE BOARD. I THEN EXPLAINED THAT I WOULD LEAVE THE ROOM AND RETURN IN A BIT TO DESCALATE THE THE SITUATION. PT WAS RUDE AND APPEARED TO WANT TO ARGUE.I REFUSED TO ACKNOWLEDGE THE ATTEMPTS TO ARGUE AND UPDATED WHITE BOARD. I THEN LEFT THE ROOM WITHOUT FURTHER INCIDENT. NOTIFIED CHARGE NURSE. PT WAS IN BED. RESPS EASY ON RA. HR 104, STABLE AT THIS TIME. CALL LIGHT IN REACH.
--- NOTE | 2019-08-05 09:58 | NUR ---
1 MG DILAUDID GIVEN FOR C/O GENERALIZED PAIN,03/05.
--- NOTE | 2019-08-05 10:47 | NUR ---
SEROQUEL 25 MG GIVEN FOR C/O ANXIETY.
[2019-08-05 12:00] VITALS: BP 125/81
[2019-08-05 16:00] VITALS: BP 127/71
--- NOTE | 2019-08-05 18:51 | NUR ---
DILAUDID 1 MG GIVEN FOR C/O PAIN,03/05.
--- NOTE | 2019-08-05 19:45 | NUR ---
Patient resting quietly with no c/o discomfort. Respirations easy and regular. Vital signs stable. No overt distress. MITUL CHAMPAGNE
[2019-08-05 20:00] VITALS: BP 119/62
--- NOTE | 2019-08-05 22:10 | NUR ---
PT COMPLAINS OF PAIN LOWER ABD 8/10 PRN DILAUDID GIVEN PT STATES HE HAS CHRONIC PAIN
--- NOTE | 2019-08-05 22:10 | NUR ---
SEROQUEL PRN GIVEN PER PT REQUEST FOR ANXIETY
--- NOTE | 2019-08-05 23:15 | NUR ---
PT.NOT USING BIPAP AT THIS TIME, PT. WANTS TO WATCH TV, WILL USE LATER.
[2019-08-06] VITALS: BP 108/63
--- NOTE | 2019-08-06 06:42 | NUR ---
24 HR CHART CHECK COMPLETED
--- NOTE | 2019-08-06 06:45 | NUR ---
PT COMPLAINS OF ABD PAIN 9/ PRN DILAUDID GIVEN
[2019-08-06 08:00] VITALS: BP 110/60
--- NOTE | 2019-08-06 09:22 | NUR ---
PT. UP IN BED HAVING BREAKFAST, BIPAP IS AVAILABLE FOR PT. PT USES AT H/S AND PRN.
--- NOTE | 2019-08-06 11:14 | NUR ---
PT REQUESTED AND GIVEN DILAUDID FOR C/O ABD PAIN PT RATES PAIN / WILL MONITOR
--- NOTE | 2019-08-06 11:50 | NUR ---
Discharge instructions reviewed with patient/family. Patient receptive and verbalizes understanding. Follow-up care arranged. Written instructions given to patient/family. Mediport unaccessed, no bleeding at all. Condition stable. BRENDAN SMITH
== END 2019-08-06 11:50 | disposition home or self-care (01) | DRG 393 ==
LOC: ED 20:06 → 5E 23:11 → EDHOLD 23:11 → 5E 23:50
PROVIDERS: Emergency Medicine; ADMIT Internal Medicine
PROC: 5A09357 Assistance with Respiratory Ventilation, Less than 24 Consecutive Hours, Continuous Positive Airway Pressure (ICD-10-PCS; principal; 2019-08-01)
PROC: 5A09357 Assistance with Respiratory Ventilation, Less than 24 Consecutive Hours, Continuous Positive Airway Pressure (ICD-10-PCS; 2019-08-05)
DX: K94.09 Other complications of colostomy (principal); N17.0 Acute kidney failure with tubular necrosis; I50.22 Chronic systolic (congestive) heart failure; D68.51 Activated protein C resistance; I13.0 Hypertensive heart and chronic kidney disease with heart failure and stage 1 through stage 4 chronic kidney disease, or unspecified chronic kidney disease; J43.2 Centrilobular emphysema; E78.2 Mixed hyperlipidemia; G47.33 Obstructive sleep apnea (adult) (pediatric); E66.9 Obesity, unspecified; N18.9 Chronic kidney disease, unspecified; D64.9 Anemia, unspecified; I08.1 Rheumatic disorders of both mitral and tricuspid valves; E11.22 Type 2 diabetes mellitus with diabetic chronic kidney disease; K21.0 Gastro-esophageal reflux disease with esophagitis; F41.9 Anxiety disorder, unspecified; F31.9 Bipolar disorder, unspecified; G43.909 Migraine, unspecified, not intractable, without status migrainosus; G25.81 Restless legs syndrome; N40.1 Benign prostatic hyperplasia with lower urinary tract symptoms; R33.8 Other retention of urine; Y83.3 Surgical operation with formation of external stoma as the cause of abnormal reaction of the patient, or of later complication, without mention of misadventure at the time of the procedure; E86.0 Dehydration; G89.4 Chronic pain syndrome; R00.0 Tachycardia, unspecified; Z88.5 Allergy status to narcotic agent; Z85.038 Personal history of other malignant neoplasm of large intestine; Z88.8 Allergy status to other drugs, medicaments and biological substances; Z88.1 Allergy status to other antibiotic agents; Z86.010 Personal history of colon polyps; Z86.718 Personal history of other venous thrombosis and embolism; Z85.72 Personal history of non-Hodgkin lymphomas; Z90.49 Acquired absence of other specified parts of digestive tract; Z80.8 Family history of malignant neoplasm of other organs or systems; Z83.3 Family history of diabetes mellitus; Z82.49 Family history of ischemic heart disease and other diseases of the circulatory system; Z82.5 Family history of asthma and other chronic lower respiratory diseases; Z92.21 Personal history of antineoplastic chemotherapy; Y92.89 Other specified places as the place of occurrence of the external cause; Z68.38 Body mass index [BMI] 38.0-38.9, adult

== ENCOUNTER 2019-08-21 14:39 | Inpatient (IN) | payer OTHER ==
[~2019-08-21] VITALS: Ht 187.9 cm; Wt 135.7 kg
[2019-08-21 14:42] VITALS: BP 110/59
[2019-08-21 16:14] LABS: BILIRUBIN NEGATIVE (NEGATIVE); BLOOD NEGATIVE (NEGATIVE); CLARITY CLEAR (CLEAR); COLOR YELLOW (YELLOW); GLUCOSE 3+ (NEGATIVE); KETONE NEGATIVE (NEGATIVE); LEUKO ESTERASE TRACE (NEGATIVE); NITRITE NEGATIVE (NEGATIVE); SPECIFIC GRAVITY 1.015 (1.005-1.030); UROBILINOGEN 0.2 E.U./dl (0.2-1.0)
[2019-08-21 16:20] LABS: HEMATOCRIT 32.8 % (42.0-52.0); HEMOGLOBIN 9.2 g/dl (14.0-18.0); MEAN CELL VOLUME 69.5 fl (80.0-94.0); MEAN CORPUSCULAR HGB 19.5 pg (27.0-31.0); MEAN PLATELET VOLUME 9.4 fl (9.6-12.3); PLATELET COUNT AUTOMATED 315 10*3/uL (130-400); RED BLOOD COUNT 4.72 10*6/uL (4.50-5.90); RED CELL DISTRI WIDTH 18.8 % (0-14.5); WHITE BLOOD COUNT 14.8 10*3/uL (4.8-10.8)
[2019-08-21 16:36] LABS: EPITHELIAL CELLS 0-2; YEAST TRACE
[2019-08-21 16:41] LABS: ALBUMIN 3.6 gm/dl (3.1-4.5); ALKALINE PHOSPHATASE 155 U/L (45-117); BUN 19 mg/dl (7-24); CHLORIDE 98 mmol/L (98-107); CREATININE 1.24 mg/dL (0.70-1.30); POTASSIUM 4.3 mmol/L (3.5-5.1); SGOT/AST 20 IU/L (3-35); SGPT/ALT 36 U/L (12-78); SODIUM 134 mmol/L (136-145); TOTAL PROTEIN 7.2 gm/dL (6.4-8.2)
[2019-08-21 16:42] LABS: TOTAL CELLS COUNTED 100 #CELLS
[2019-08-21 16:43] LABS: MICROCYTOSIS SLIGHT; OVALOCYTES FEW; PLATELET SUFFICIENCY NORMAL (NORMAL); STOMATOCYTE FEW
--- NOTE | 2019-08-21 17:49 | NUR ---
CALLED PHARMACY AND THEY ARE GOING TO FAX OVER MED LIST
--- NOTE | 2019-08-21 18:32 | NUR ---
A 53, admitted to , under the services of Dr. DIANE KUMAR,SPARKLE Priest with a diagnosis of LEUKOCYTOSIS. COMMUNITY AQUIRED PNEUMONIA. Chief complaint is COUGH, SOB. Patient arrived via bed from ER. Monitor applied. Initial assessment completed. Vital signs taken and recorded. DR. DIANE KUMAR,SPARKLE Priest notified of admission to the unit. Orders received. See assessment for past medical history, medications and allergies. Patient and/or family oriented to unit. [facility] visitation policy reviewed. Clothing/patient valuable form completed. AMERICA DUEÑAS
--- NOTE | 2019-08-21 18:53 | NUR ---
DR CONTRERAS WANTS TO ADD A CONSULT FOR DR FERGUSON FOR SOB. WILL PASS ON TO ONCOMING NURSE
--- NOTE | 2019-08-21 18:53 | NUR ---
CALLED DR CONTRERAS AND WENT OVER MED LIST, CONTINUED MEDS PER REQUEST
--- NOTE | 2019-08-21 19:36 | NUR ---
DR FERGUSON AWARE OF NEW CONSULT. MADE AWARE OF PATIENT STATING HE DOES NOT WANT TO WEAR HIS CPAP TONIGHT. DR STATES "THAT IS FINE".
[2019-08-21 20:00] VITALS: BP 119/62
[2019-08-22] VITALS: BP 128/67
--- NOTE | 2019-08-22 00:03 | NUR ---
PATIENT'S FIANCE CALLED IN STATING THAT THE PATIENT'S PROGRAMS ASSISTANT PAT MURDOCK HAS RECENTLY INCREASED THE PATIENT'S SEROQUEL TO 100MG AT NIGHT. SHE STATES THAT EVERY NIGHT AFTER TAKING THE NEW DOSAGE OF MEDICATION THE PATIENT STAGGERS AND CANNOT EVEN HOLD HIS HEAD UP. SHE STATES SHE TALKED TO HIM THIS EVENING AT 2300 AND HE COULD NOT KEEP THE PHONE IN HIS HAND. PATIENT AWAKENS EASILY AT THIS TIME. WILL CONTINUE TO MONITOR
--- NOTE | 2019-08-22 03:40 | NUR ---
24 HR chart check completed.
--- NOTE | 2019-08-22 04:15 | NUR ---
PATIENT RESTING IN BED WITH NO NEEDS MADE. BED IN LOWEST POSITION, CALL LIGHT IN REACH
--- NOTE | 2019-08-22 10:30 | NUR ---
PT IS REQUESTING HIS MS CONTIN AND OXY AND STATES THAT HE TAKES BOTH AT HOME EVERY 4 HOURS.
--- NOTE | 2019-08-22 10:47 | NUR ---
CALLED DR CONTRERAS AND THERE WAS NO ANSWER, WILL CALL BACK IF I DO NOT HEAR FROM HIM
--- NOTE | 2019-08-22 10:50 | NUR ---
IN THE PATIENTS ROOM AND PT IS SLEEPING, CAN BARELY STAY AWAKE TO COMMUNICATE. SAMANTHA THE PERSONAL LINES ADVISOR WITH ME AND WE LOOKED OVER THE MEDICATION THAT IS TO BE GIVEN AND FEEL THAT IT IS A GOOD IDEA TO CALL PHARMACY AND THE DOCTOR TO VERIFY THE DOSAGE ON THE MS CONTIN AND OXY AND HOW OFTEN IT IS TO BE GIVEN. I DID NOT GIVE THE MS CONTIN AT THIS TIME DUE TO THE PATIENT SLEEPING AND HAVING A HARD TIME STAYING AWAKE. WILL CONTINUE TO MONITOR.
--- NOTE | 2019-08-22 10:54 | NUR ---
CALLED PHARMACY REGARDING THE MS CONTIN THAT IS IN THE PATIENTS EMAR AND TOLD THEM THAT THE MEDICATION I PULLED IS ER AND ON THE EMAR IT DOES NOT STATE ER. THEY STATED THAT ALL THE MS CONTIN IS CONSIDERED ER THAT IT WAS FINE.
[2019-08-22 12:00] VITALS: BP 122/70
--- NOTE | 2019-08-22 12:14 | NUR ---
Dietitian Chief in to talk to patient. Patient states lives at HOME with GIRLFRIEND. There are OUTSIDE steps in the home. Physician: DIANE [facility]acy: [facility] Home health services: NONE Patient's level of ADLs: INDEPENDENT Patient has working utilities: YES DME: NONE Follow-up physician's appointment after d/c: PREFERS TO MAKE OWN AFTER DISCHARGE Does patient want to access PORTAL?: NO Discharge plan PT LIVES AT HOME WITH HIS GIRLFRIEND AND IS INDEPENDENT IN HIS CARE. TALKED TO HIM ABOUT HOME HEALTH DUE TO MULTIBLE ADMISSIONS BUT HE DENIES THE NEED. PLANS TO RETURN HOME WHEN MEDICALLY STABLE. WILL CONTINUE TO FOLLOW. STATES HE WILL HAVE A RIDE HOME.. IAN GRULLON
--- NOTE | 2019-08-22 14:24 | NUR ---
PT STATES THAT HE IS HAVING PAIN IN HIS ABDOMEN AND RATES IT A 8/10 AND IS REQUESTING SOMETHING FOR PAIN. PO OXYCODONE IS GIVEN AT THIS TIME. WILL CONTINUE TO MONITOR THE PATIENT. CALL LIGHT WITHIN REACH.
--- NOTE | 2019-08-22 15:15 | NUR ---
PT STATES THAT HE FEELS SOME RELEIF AFTER TAKING HIS OXYCODONE. WILL CONTINUE TO MONITOR/
[2019-08-22 16:00] VITALS: BP 124/69
--- NOTE | 2019-08-22 19:07 | NUR ---
CALLED DR CONTRERAS AND INFORMED HIM THAT THE PRM ORDER OF MORHPINE WAS IN THE COMPUTER 30 PRN Q4, AND AFTER LOOKING INTO THE MED LIST FROM THE PHARMACY IT IS SUPPOSED TO BE 30 MG PRNQ8. ADDING NEW ORDER NOW PER WISHES.
[2019-08-22] MEDS ORDERED: MS CONTIN30 MG PO (19:10)
--- NOTE | 2019-08-22 19:52 | NUR ---
PT STATES THAT HE IS HAVING BACK PAIN RATING IT A 8/10 AND IS REQUESTING SOMETHING FOR PAIN. GIVING THE PATIENT PO MORPHINE AT THIS TIME. WILL CONTINUE TO MONITOR THE PATIENT. CALL LIGHT WITHIN REACH
[2019-08-22 20:00] VITALS: BP 124/67
--- NOTE | 2019-08-22 20:12 | NUR ---
PT REQUESTING A BREATHING TREATMENT, WILL CALL RESPIRATORY NOW
--- NOTE | 2019-08-22 20:36 | NUR ---
PT RE-EVALUATED AT THIS TIME AND IS CURRENTLY GETTING A BREATHING TREATMENT. WILL CONTINUE TO MONITOR THE PATIENT
--- NOTE | 2019-08-22 22:37 | NUR ---
IN TO SEE PATIENT AND HE IS SLEEPING. WILL CONTINUE TO MONITOR
--- NOTE | 2019-08-22 23:00 | NUR ---
REPORT RECEIVED FROM [place] CHILDRESS. PT LYING IN BED SLEEPING AT THIS TIME, O2 INTACT. NO S/S OF DISTRESS NOTED. CALL LIGHT IN REACH.
[2019-08-23] VITALS: BP 117/70
--- NOTE | 2019-08-23 00:30 | NUR ---
PT REQUESTING PAIN MEDICATION. UPON ENTERING ROOM TO GIVE MEDICATION PT IS SLEEPING. ATTEMPTED TO WAKE PT BUT HE FELL BACK ASLEEP. WILL MONITOR.
--- NOTE | 2019-08-23 01:00 | NUR ---
PT SLEEPING AT THIS TIME.
--- NOTE | 2019-08-23 03:00 | NUR ---
PT SLEEPING AT THIS TIME. NO S/S OF DISTRESS.
--- NOTE | 2019-08-23 04:47 | NUR ---
PT MEDICATED WITH OXYCODONE PER ORDER FOR COMPLAINT OF 9/10 GENERALIZED PAIN. WILL MONITOR EFFECTIVENESS.
--- NOTE | 2019-08-23 06:15 | NUR ---
PT SLEEPING AT THIS TIME. PAIN MEDICATION APPEARS EFFECTIVE
[2019-08-23 08:00] VITALS: BP 122/74
[2019-08-23 12:00] VITALS: BP 117/70
--- NOTE | 2019-08-23 12:44 | NUR ---
MS CONTIN GIVEN TO PT AT THIS TIME PER PT REQUEST DUE TO ABDOMINAL PAIN/BACK PAIN. PT STATES THAT PAIN IS 9/10. WILL MONITOR FOR EFFECTIVENESS. CALL LIGHT IN REACH.
--- NOTE | 2019-08-23 13:44 | NUR ---
PT MS CONTIN EFFECTIVE AT THIS TIME.
--- NOTE | 2019-08-23 14:54 | NUR ---
PT LYING IN BED. PT COMPLAINS OF PAIN BUT REFUSES HIS PRN OXYCODONE 15 MG AT THIS TIME. PT TOLD TO NOTIFY NURSE IF HE DECIDES HE WOULD LIKE TO TAKE MEDICATION FOR PAIN. RESPIRATIONS EASY AND UNLABORED. FAINT WHEEZE HEARD UPON AUSCULTATION. NO OTHER S/S OF DISTRESS ARE NOTED. CALL LIGHT IN REACH.
[2019-08-23 16:00] VITALS: BP 124/67
--- NOTE | 2019-08-23 17:31 | NUR ---
DILAUDID 1 MG GIVEN TO PT AT THIS TIME PER PT REQUEST FOR GENERALIZED BODY PAINS. WILL MONITOR FOR EFFECTIVENESS. CALL LIGHT IN REACH.
--- NOTE | 2019-08-23 18:22 | NUR ---
DILAUDID EFFECTIVE PER PT.
--- NOTE | 2019-08-23 19:36 | NUR ---
DR CONTRERAS AT THE NURSES STATION. DISCUSSED WITH HIM PATIENT GETTING 100MG OF SEROQUEL A NIGHT AND THE FIANCE'S CONCERNS. DR CONTRERAS STATES TO CHANGE SEROQUEL TO 50MG AT NIGHT TIME. DR CONTRERAS ALSO STATES THAT THE PATIENT IS NOT TO HAVE ORAL PAIN MEDICATION, ONLY IV DILAUDID AND THAT THE PATIENT IS AWARE OF THIS.
[2019-08-23 20:00] VITALS: BP 128/71
--- NOTE | 2019-08-23 20:07 | NUR ---
PATIENT RESTING IN BED WITH NO NEEDS MADE. DENIES PAIN AT THIS TIME. BED IN LOWEST POSITION, CALL LIGHT IN REACH
--- NOTE | 2019-08-23 22:16 | NUR ---
MEDICATED WITH PRN MORPHINE FOR C/O PAIN IN RIGHT SIDE RATED 8/10 ON A 0/10 PAIN SCALE. WILL MONITOR
[2019-08-24] VITALS: BP 127/65; BP 128/77
--- NOTE | 2019-08-24 00:37 | NUR ---
RESPIRATORY NOTIFIED OF PATIENT REQUESTING BREATHING TREATMENT
--- NOTE | 2019-08-24 02:57 | NUR ---
PATIENT CALLED OUT REQUESTING PAIN MEDICATION. UPON ENTERING ROOM, PATIENT STATES "I AM GOING TO TELL YOU SOMETHING RIGHT NOW. THE NEXT TIME SOMEONE ANSWER'S THAT CALL LIGHT LIKE THAT AGAIN I AM GOING TO WALK MY WHITE A UP TO THE NURSES STATION AND GIVE THEM A PIECE OF MY MIND". PATIENT CUSSING AND BEING RUDE TO THIS RN. PATIENT STATES PAIN IS RATED 8/10 IN THE LEFT LOWER BACK. NO VISIBLE SIGNS OF DISTRESS. MEDICATED WITH PRN DILAUDID PER ORDER PER REQUEST.
--- NOTE | 2019-08-24 04:50 | NUR ---
24 HR chart check completed.
--- NOTE | 2019-08-24 05:51 | NUR ---
PATIENT CALLING OUT FOR PAIN MEDICATION. RESTING IN BED WITH NO VISIBLE DISTRESS NOTED. PATIENT INFORMED THAT PRN DILAUDID IS NOT DUE UNTIL 651. PATIENT VERBALIZED UNDERSTANDING.
--- NOTE | 2019-08-24 05:52 | NUR ---
PATIENT STATES HE DOES NOT WANT INSULIN UNTIL HE ORDERS HIS BREAKFAST.
--- NOTE | 2019-08-24 07:20 | NUR ---
MEDICATED WITH PRN DILAUDID FOR C/O BACK PAIN RATED 8/10 ON A 0/10 PAIN SCALE. WILL MONITOR
[2019-08-24 08:00] VITALS: BP 122/67
--- NOTE | 2019-08-24 08:00 | NUR ---
24 HR chart check completed.
--- NOTE | 2019-08-24 09:00 | NUR ---
SLEEPING SOUNDLY. NO DISTRESS NOTED. RESPIRATIONS EASY. LUNGS DIMINISHED WITH FORCED EXP WHEEZES. PULSE OX 98% 2L. COLOSTOMY PATENT. CALL LIGHT WITHIN REACH. NO VOICED COMPLAINTS
--- NOTE | 2019-08-24 11:34 | NUR ---
IMMEDIATLEY UPON AWAKENING, REQUESTED AND RECEIVED DILAUDID IV PER PRN ORDER FOR COMPLAINTS OF PAIN RATING AN 8 UNDER LEFT POSTERIOR SHOULDER. CALL LIGHT WITHIN REACH. WILL MONITOR
[2019-08-24 12:00] VITALS: BP 131/87
--- NOTE | 2019-08-24 12:30 | NUR ---
MEDS APPEAR EFFECTIVE. RESTING WITH EYES CLOSED. RESPIRATIONS EASY. CALL LIGHT WITHIN REACH
[2019-08-24 16:00] VITALS: BP 138/89
--- NOTE | 2019-08-24 16:17 | NUR ---
RESTING IN BED. RESPIRATIONS EASY. VSS. REQUESTED AND RECEIVED DILAUDID PER PRN ORDER FOR COMPLAINTS OF LEFT BACK/SHOULDER PAIN RATING AN 8. CALL LIGHT WITHIN REACH. WILL MONITOR
--- NOTE | 2019-08-24 17:12 | NUR ---
MEDS EFFECTIVE. RESTING IN BED. RESPIRATIONS EASY. CALL LIGHT WITHIN REACH. NO FURTHER VOICED COMPLAINTS
[2019-08-24 20:00] VITALS: BP 120/71
--- NOTE | 2019-08-24 20:10 | NUR ---
PATIENT ASSESSMENT COMPLETED AT THIS TIME WITHOUT INCIDENT. PATIENT DENIES ANY CHEST PAIN OR PRESSURE AT THIS TIME. COMPLAINED OF PAIN UNDER LEFT SHOULDER BLADE THAT RADIATED DOWN HIS LEFT SIDE, PAIN RATED AT A 10/10 AT THIS TIME, MEDICATED WITH DILAUDID AT THIS TIME. CALL LIGHT WITHIN REACH, WILL CONTINUE TO MONITOR.
--- NOTE | 2019-08-24 21:30 | NUR ---
PATIENT STATED THAT PAIN HAD IMPROVED SLIGHTLY TO A 6/10 AT THIS TIME. WILL CONTINUE TO MONITOR,
--- NOTE | 2019-08-24 22:37 | NUR ---
24 HOUR CHART COMPLETED
--- NOTE | 2019-08-25 00:25 | NUR ---
PATIENT COMPLAINED OF 8/10 LEFT SIDE AND BACK PAIN AT THIS TIME, DILAUDID IV GIVEN.
--- NOTE | 2019-08-25 04:25 | NUR ---
PATIENT MEDICATED AT HIS REQUEST AT THIS TIME FOR 8/10 PAIN IN HIS BACK AND LEFT SHOULDER.
--- NOTE | 2019-08-25 05:15 | NUR ---
PATIENT RESTING IN BED IN A POSITION OF COMFORT, CURRENTLY ON HOME BIPAP UNIT, EYES CLOSED, NO SIGNS OR SYMPTOMS OF PAIN NOTED AT THIS TIME.
[2019-08-25 08:00] VITALS: BP 130/68
--- NOTE | 2019-08-25 08:45 | NUR ---
MEDICATED WITH PRN IV DILAUDID FOR PAIN TO LEFT SCAPULA AREA.
--- NOTE | 2019-08-25 10:04 | NUR ---
PRN IV DILAUDID EFFECTIVE, PER PATIENT.
[2019-08-25 12:00] VITALS: BP 134/83
--- NOTE | 2019-08-25 12:36 | NUR ---
MEDICATED WITH PRN IV DILAUDID FOR LEFT SIDED UPPER BACK PAIN.
--- NOTE | 2019-08-25 13:29 | NUR ---
[facility] Shingle Packer Arabella called in to receive and update on patients status. ORGAN TEACHER provided update. -KOFFI Duong
--- NOTE | 2019-08-25 13:31 | NUR ---
PRN IV DILAUDID EFFECTIVE, PER PATIENT.
[2019-08-25 16:00] VITALS: BP 117/73
--- NOTE | 2019-08-25 16:35 | NUR ---
MEDICATED WITH PRN IV DILAUDID FOR LEFT SCAPULA AREA PAIN.
--- NOTE | 2019-08-25 17:28 | NUR ---
PRN IV DILAUDID EFFECTIVE, PER PATIENT.
[2019-08-25 20:00] VITALS: BP 129/76
--- NOTE | 2019-08-25 20:02 | NUR ---
24 HOUR CHART CHECK COMPLETED
--- NOTE | 2019-08-25 20:15 | NUR ---
PATIENT ASSESSMENT COMPLETE AT THIS TIME WITHOUT INCIDENT. PATIENT DENIES CHEST PAIN/PRESSURE OR SHORTNESS OF BREATH AT THIS TIME. DOES COMPLAIN OF PAIN 8/10 IN THE LEFT SHOULDER AND BACK AT THIS TIME, SEE EMAR FOR MEDICATION ADMINISTRATION. PATIENT CONTINUES ON NC 2LPM AT THIS TIME. CALL LIGHT WITHIN REACH WILL CONTINUE TO MONITOR.
--- NOTE | 2019-08-25 21:15 | NUR ---
PRN PAIN MEDICATION EFFECTIVE PER PATIENT WHO IS A&O X3
[2019-08-26] VITALS: BP 121/72
--- NOTE | 2019-08-26 00:35 | NUR ---
PRN DILAUDID GIVEN AT THIS TIME FOR 9/10 PAIN IN HIS LEFT SHOULDER AND BACK.
[2019-08-26 00:40] VITALS: BP 121/72
--- NOTE | 2019-08-26 01:35 | NUR ---
PAIN MEDICATION EFFECTIVE PER PATIENT, A&O X3
--- NOTE | 2019-08-26 05:22 | NUR ---
PRN DILAUDID GIVEN AT THIS TIME FOR 8/10 PAIN IN BACK AND SHOULDER
--- NOTE | 2019-08-26 06:18 | NUR ---
PAIN MEDICATION EFFECTIVE PER PATIENT, A&O X3
[2019-08-26 08:00] VITALS: BP 128/84
--- NOTE | 2019-08-26 10:10 | NUR ---
MEDICATED WITH PRN IV DILAUDID FOR PAIN TO LEFT UPPER BACK.
--- NOTE | 2019-08-26 11:08 | NUR ---
PRN IV DILAUDID EFFECTIVE, PER PATIENT.
--- NOTE | 2019-08-26 11:51 | NUR ---
case management visits with patient, he will return home when medically stable and denies any home needs, patient is a possible discharge for today
[2019-08-26 12:00] VITALS: BP 119/82
--- NOTE | 2019-08-26 13:50 | NUR ---
MEDICATED WITH PRN IV DILAUDID FOR LEFT UPPER BACK PAIN.
--- NOTE | 2019-08-26 17:20 | NUR ---
Discharge instructions reviewed with patient. Patient receptive and verbalizes understanding. Follow-up care arranged. Written instructions given to patient. PATIENT DISCHARGED TO [facility], AMBULATORY, FOR TRANSPORT HOME BY PRIVATE VEHICLE WITH HIS . CRAMEN MALDONADO
== END 2019-08-26 17:20 | disposition home or self-care (01) | DRG 202 ==
LOC: ED 14:39 → EDHOLD 17:17 → 4E 17:17
PROVIDERS: Nurse Practitioner; ADMIT Internal Medicine
DX: J45.41 Moderate persistent asthma with (acute) exacerbation (principal); J44.1 Chronic obstructive pulmonary disease with (acute) exacerbation; I50.22 Chronic systolic (congestive) heart failure; D68.2 Hereditary deficiency of other clotting factors; D68.59 Other primary thrombophilia; J44.0 Chronic obstructive pulmonary disease with (acute) lower respiratory infection; G47.33 Obstructive sleep apnea (adult) (pediatric); J20.9 Acute bronchitis, unspecified; I11.0 Hypertensive heart disease with heart failure; G89.4 Chronic pain syndrome; E66.01 Morbid (severe) obesity due to excess calories; E78.5 Hyperlipidemia, unspecified; K21.0 Gastro-esophageal reflux disease with esophagitis; E11.9 Type 2 diabetes mellitus without complications; G25.81 Restless legs syndrome; N40.1 Benign prostatic hyperplasia with lower urinary tract symptoms; B34.9 Viral infection, unspecified; R62.7 Adult failure to thrive; F31.9 Bipolar disorder, unspecified; R33.8 Other retention of urine; Z68.39 Body mass index [BMI] 39.0-39.9, adult; Z93.3 Colostomy status; Z90.49 Acquired absence of other specified parts of digestive tract; Z85.038 Personal history of other malignant neoplasm of large intestine; Z88.1 Allergy status to other antibiotic agents; Z88.5 Allergy status to narcotic agent; Z88.8 Allergy status to other drugs, medicaments and biological substances; Z83.6 Family history of other diseases of the respiratory system; Z80.8 Family history of malignant neoplasm of other organs or systems; Z82.49 Family history of ischemic heart disease and other diseases of the circulatory system; Z79.01 Long term (current) use of anticoagulants; Z79.899 Other long term (current) drug therapy; Z86.718 Personal history of other venous thrombosis and embolism; Z90.5 Acquired absence of kidney

== ENCOUNTER 2019-08-30 11:49 | Inpatient (IN) | payer OTHER ==
[~2019-08-30] VITALS: Ht 180.3 cm; Wt 141.6 kg
[2019-08-30] VITALS (8 sets, daily range): BP systolic 76–124; BP diastolic 50–73
[2019-08-30 12:06] LABS: ARTERIAL BLOOD GAS PH 7.2 (7.35-7.45)
[2019-08-30 12:13] LABS: HEMATOCRIT 36.5 % (42.0-52.0); MEAN CELL VOLUME 72.1 fl (80.0-94.0); MEAN CORPUSCULAR HGB 19.8 pg (27.0-31.0); MEAN CORPUSCULAR HGB CONC 27.4 g/dl (33.0-37.0); MEAN PLATELET VOLUME 9.5 fl (9.6-12.3); PLATELET COUNT AUTOMATED 361 10*3/uL (130-400); RED BLOOD COUNT 5.06 10*6/uL (4.50-5.90); RED CELL DISTRI WIDTH 18.9 % (0-14.5); WHITE BLOOD COUNT 30.2 10*3/uL (4.8-10.8)
[2019-08-30 12:27] LABS: ALBUMIN 3.5 gm/dl (3.1-4.5); CREATININE 2.13 mg/dL (0.70-1.30); POTASSIUM 5.2 mmol/L (3.5-5.1); TOTAL PROTEIN 7.1 gm/dL (6.4-8.2)
[2019-08-30 12:50] LABS: PLATELET SUFFICIENCY NORMAL (NORMAL); TOTAL CELLS COUNTED 100 #CELLS
[2019-08-30 13:51] LABS: ABG BASE EXCESS -1.6 mmol/L (-2.0-2.0)
[2019-08-30 13:58] LABS: ARTERIAL BLOOD GAS PH 7.191 (7.35-7.45)
[2019-08-30 14:32] LABS: BILIRUBIN NEGATIVE (NEGATIVE); BLOOD TRACE-INTACT (NEGATIVE); CLARITY CLEAR (CLEAR); COLOR YELLOW (YELLOW); GLUCOSE 3+ (NEGATIVE); KETONE NEGATIVE (NEGATIVE); LEUKO ESTERASE NEGATIVE (NEGATIVE); NITRITE NEGATIVE (NEGATIVE); PH 5.5 (5.0-9.0); SPECIFIC GRAVITY 1.025 (1.005-1.030); UROBILINOGEN 0.2 E.U./dl (0.2-1.0)
[2019-08-30 14:40] LABS: URINE AMPHETAMINES < 1000 (1000ng/ml); URINE BARBITURATES < 200 (200ng/ml); URINE BENZODIAZEPINES < 200 (200ng/ml); URINE CANNABINOIDS (THC) < 50 (50ng/ml); URINE COCAINE < 300 (300ng/ml); URINE METHADONE < 300 (300ng/ml); URINE OPIATES > 300 (300ng/ml)
[2019-08-30 14:42] LABS: URINE PHENCYCLIDINE < 25 (25ng/ml)
[2019-08-30 14:45] LABS: BACTERIA 2+; RBC 0-2 rbc/hpf (0-2)
[2019-08-30 17:01] LABS: ABG BASE EXCESS -0.9 mmol/L (-2.0-2.0); ARTERIAL BLOOD GAS PH 7.228 (7.35-7.45)
[2019-08-30] MEDS ORDERED: TRAD5TAB1 PO (17:03)
[2019-08-30 17:47] LABS: BILIRUBIN NEGATIVE (NEGATIVE); BLOOD 1+ (NEGATIVE); CLARITY CLEAR (CLEAR); COLOR YELLOW (YELLOW); GLUCOSE 3+ (NEGATIVE); KETONE NEGATIVE (NEGATIVE); LEUKO ESTERASE NEGATIVE (NEGATIVE); NITRITE NEGATIVE (NEGATIVE); PH 5.5 (5.0-9.0); UROBILINOGEN 0.2 E.U./dl (0.2-1.0)
[2019-08-30 17:54] LABS: BACTERIA TRACE; WBC 0-2 wbc/hpf (0-5)
[2019-08-30 20:05] LABS: ABG BASE EXCESS 1.5 mmol/L (-2.0-2.0); ARTERIAL BLOOD GAS PH 7.319 (7.35-7.45)
[2019-08-31] VITALS: BP 143/80
[2019-08-31 04:00] VITALS: BP 128/71
[2019-08-31 05:58] LABS: BASO % 0.1 % (0.0-1.0); HEMATOCRIT 32.4 % (42.0-52.0); HEMOGLOBIN 8.9 g/dl (14.0-18.0); LYMPH % 9.5 % (27.0-41.0); MEAN CELL VOLUME 69.8 fl (80.0-94.0); MEAN CORPUSCULAR HGB 19.2 pg (27.0-31.0); MEAN CORPUSCULAR HGB CONC 27.5 g/dl (33.0-37.0); MEAN PLATELET VOLUME 9.7 fl (9.6-12.3); MONO # 0.7 10*3/uL (0.1-1.0); MONO % 3.2 % (3.0-9.0); PLATELET COUNT AUTOMATED 311 10*3/uL (130-400); RED BLOOD COUNT 4.64 10*6/uL (4.50-5.90); RED CELL DISTRI WIDTH 18.9 % (0-14.5)
[2019-08-31 06:16] LABS: ALBUMIN 3.1 gm/dl (3.1-4.5); ALKALINE PHOSPHATASE 113 U/L (45-117); CHLORIDE 109 mmol/L (98-107); CREATININE 1.07 mg/dL (0.70-1.30); POTASSIUM 4.3 mmol/L (3.5-5.1); SGOT/AST 21 IU/L (3-35); SGPT/ALT 33 U/L (12-78); SODIUM 142 mmol/L (136-145); TOTAL PROTEIN 6.9 gm/dL (6.4-8.2)
[2019-08-31 06:23] LABS: BUN 15 mg/dl (7-24)
[2019-08-31 12:00] VITALS: BP 144/71
[2019-08-31 16:00] VITALS: BP 128/70
[2019-08-31 16:44] LABS: ABG BASE EXCESS -1.5 mmol/L (-2.0-2.0); ARTERIAL BLOOD GAS PH 7.451 (7.35-7.45)
[2019-08-31 20:00] VITALS: BP 115/68
[2019-09-01] VITALS: BP 138/78
[2019-09-01 04:00] VITALS: BP 149/92
[2019-09-01 08:00] VITALS: BP 130/86
[2019-09-01 12:00] VITALS: BP 132/80
[2019-09-01 16:00] VITALS: BP 147/68
[2019-09-01 20:00] VITALS: BP 133/74
[2019-09-02] VITALS: BP 121/70
[2019-09-02 08:00] VITALS: BP 122/79; BP 132/70
[2019-09-02] MEDS ORDERED: LINEZOLID600 MG PO (08:27)
[2019-09-02] MEDS ORDERED: PREDNISONE20 M1 PO (08:27)
[2019-09-02] MEDS ORDERED: HYDROXYZINE PAM25 M1 PO (08:27)
[2019-09-02 09:54] LABS: BASO % 0.2 % (0.0-1.0); EOS # 0.1 10*3/uL (0.0-0.4); EOS % 0.8 % (1.0-4.0); HEMATOCRIT 35.1 % (42.0-52.0); HEMOGLOBIN 9.7 g/dl (14.0-18.0); LYMPH # 4.2 10*3/uL (1.3-4.4); LYMPH % 31.3 % (27.0-41.0); MEAN CORPUSCULAR HGB 19.1 pg (27.0-31.0); MEAN CORPUSCULAR HGB CONC 27.6 g/dl (33.0-37.0); MEAN PLATELET VOLUME 9.5 fl (9.6-12.3); MONO % 7.4 % (3.0-9.0); NEUT # 7.8 10*3/uL (2.3-7.9); NEUT % 58.4 % (47.0-73.0); PLATELET COUNT AUTOMATED 354 10*3/uL (130-400); RED BLOOD COUNT 5.09 10*6/uL (4.50-5.90); RED CELL DISTRI WIDTH 19.4 % (0-14.5); WHITE BLOOD COUNT 13.4 10*3/uL (4.8-10.8)
[2019-09-02 10:16] LABS: CHLORIDE 103 mmol/L (98-107); POTASSIUM 3.5 mmol/L (3.5-5.1); SODIUM 137 mmol/L (136-145)
[2019-09-02 10:22] LABS: ALBUMIN 3.3 gm/dl (3.1-4.5); ALKALINE PHOSPHATASE 111 U/L (45-117); BUN 16 mg/dl (7-24); CREATININE 1.02 mg/dL (0.70-1.30); SGOT/AST 20 IU/L (3-35); SGPT/ALT 38 U/L (12-78); TOTAL PROTEIN 7.2 gm/dL (6.4-8.2)
== END 2019-09-02 12:48 | disposition home health service (06) | DRG 917 ==
LOC: ED 11:49 → EDHOLD 15:27 → 4E 15:27 → ICCU 15:36 → 4E 08-31 08:06
PROVIDERS: Emergency Medicine; Internal Medicine Critical Care Medicine; ADMIT Internal Medicine
PROC: 5A09357 Assistance with Respiratory Ventilation, Less than 24 Consecutive Hours, Continuous Positive Airway Pressure (ICD-10-PCS; principal; 2019-08-30)
DX: T40.601A Poisoning by unspecified narcotics, accidental (unintentional), initial encounter (principal); J96.21 Acute and chronic respiratory failure with hypoxia; J96.22 Acute and chronic respiratory failure with hypercapnia; J69.0 Pneumonitis due to inhalation of food and vomit; N39.0 Urinary tract infection, site not specified; N32.1 Vesicointestinal fistula; D68.51 Activated protein C resistance; E87.2 Acidosis; Z16.21 Resistance to vancomycin; E11.65 Type 2 diabetes mellitus with hyperglycemia; J44.9 Chronic obstructive pulmonary disease, unspecified; B95.61 Methicillin susceptible Staphylococcus aureus infection as the cause of diseases classified elsewhere; I10 Essential (primary) hypertension; F32.9 Major depressive disorder, single episode, unspecified; G89.4 Chronic pain syndrome; Z79.01 Long term (current) use of anticoagulants; Z79.4 Long term (current) use of insulin; Z79.899 Other long term (current) drug therapy; Z90.49 Acquired absence of other specified parts of digestive tract; Z93.3 Colostomy status; Z88.1 Allergy status to other antibiotic agents; Z88.5 Allergy status to narcotic agent; Z88.8 Allergy status to other drugs, medicaments and biological substances; Z85.038 Personal history of other malignant neoplasm of large intestine; Z86.718 Personal history of other venous thrombosis and embolism; Z83.6 Family history of other diseases of the respiratory system; Z80.8 Family history of malignant neoplasm of other organs or systems; Z82.49 Family history of ischemic heart disease and other diseases of the circulatory system; Y92.89 Other specified places as the place of occurrence of the external cause

== ENCOUNTER 2019-09-14 21:09 | Emergency (ER) | payer OTHER ==
[~2019-09-14] VITALS: Wt 113.4 kg
[~2019-09-14 21:09] MED LIST changes: +HYDROXYZINE PAM25 M1 PO; +LINEZOLID600 MG PO; +PREDNISONE20 M1 PO; +TRAD5TAB1 PO
[2019-09-14 21:17] VITALS: BP 112/72
[2019-09-14 22:14] LABS: BASO # 0.1 10*3/uL (0.0-0.1); BASO % 0.6 % (0.0-1.0); EOS # 0.2 10*3/uL (0.0-0.4); EOS % 1.6 % (1.0-4.0); HEMATOCRIT 36.4 % (42.0-52.0); HEMOGLOBIN 10.6 g/dl (14.0-18.0); LYMPH % 32.3 % (27.0-41.0); MEAN CELL VOLUME 69.2 fl (80.0-94.0); MEAN CORPUSCULAR HGB 20.2 pg (27.0-31.0); MEAN CORPUSCULAR HGB CONC 29.1 g/dl (33.0-37.0); MEAN PLATELET VOLUME 9.2 fl (9.6-12.3); MONO % 7.7 % (3.0-9.0); NEUT % 57.1 % (47.0-73.0); PLATELET COUNT AUTOMATED 398 10*3/uL (130-400); RED BLOOD COUNT 5.26 10*6/uL (4.50-5.90); RED CELL DISTRI WIDTH 19.3 % (0-14.5); WHITE BLOOD COUNT 12.3 10*3/uL (4.8-10.8)
[2019-09-14 22:33] LABS: ALBUMIN 3.6 gm/dl (3.1-4.5); ALKALINE PHOSPHATASE 122 U/L (45-117); CHLORIDE 104 mmol/L (98-107); CREATININE 1.23 mg/dL (0.70-1.30); POTASSIUM 4.7 mmol/L (3.5-5.1); SODIUM 136 mmol/L (136-145)
[2019-09-14 23:19] LABS: BUN 15 mg/dl (7-24); SGOT/AST 33 IU/L (3-35); SGPT/ALT 60 U/L (12-78); TOTAL PROTEIN 7.2 gm/dL (6.4-8.2)
[2019-09-15 00:06] LABS: BILIRUBIN NEGATIVE (NEGATIVE); BLOOD NEGATIVE (NEGATIVE); CLARITY CLEAR (CLEAR); COLOR YELLOW (YELLOW); GLUCOSE 1+ (NEGATIVE); KETONE NEGATIVE (NEGATIVE); LEUKO ESTERASE NEGATIVE (NEGATIVE); NITRITE NEGATIVE (NEGATIVE); SPECIFIC GRAVITY 1.015 (1.005-1.030); UROBILINOGEN 0.2 E.U./dl (0.2-1.0)
[2019-09-15 00:17] LABS: YEAST 1+
== END 2019-09-15 01:25 | disposition home or self-care (01) ==
LOC: ED 21:09
PROVIDERS: Emergency Medicine
DX: K59.00 Constipation, unspecified (principal); R10.9 Unspecified abdominal pain; J45.909 Unspecified asthma, uncomplicated; G89.29 Other chronic pain; J44.9 Chronic obstructive pulmonary disease, unspecified; I11.0 Hypertensive heart disease with heart failure; I50.9 Heart failure, unspecified; E78.5 Hyperlipidemia, unspecified; K21.9 Gastro-esophageal reflux disease without esophagitis; E11.9 Type 2 diabetes mellitus without complications; G43.909 Migraine, unspecified, not intractable, without status migrainosus; E66.9 Obesity, unspecified; Z88.8 Allergy status to other drugs, medicaments and biological substances; Z88.5 Allergy status to narcotic agent; Z88.1 Allergy status to other antibiotic agents; Z88.6 Allergy status to analgesic agent; Z79.899 Other long term (current) drug therapy; Z79.4 Long term (current) use of insulin; Z93.3 Colostomy status

== ENCOUNTER 2019-09-19 14:28 | Inpatient (IN) | payer OTHER ==
[~2019-09-19] VITALS: Ht 188 cm; Wt 139.8 kg
[2019-09-19 14:30] VITALS: BP 108/54
[2019-09-19 14:57] LABS: BASO # 0.1 10*3/uL (0.0-0.1); BASO % 0.7 % (0.0-1.0); EOS # 0.2 10*3/uL (0.0-0.4); EOS % 2.4 % (1.0-4.0); HEMATOCRIT 33.4 % (42.0-52.0); HEMOGLOBIN 9.5 g/dl (14.0-18.0); LYMPH # 2.2 10*3/uL (1.3-4.4); LYMPH % 23.8 % (27.0-41.0); MEAN CELL VOLUME 68.9 fl (80.0-94.0); MEAN CORPUSCULAR HGB 19.6 pg (27.0-31.0); MEAN CORPUSCULAR HGB CONC 28.4 g/dl (33.0-37.0); MEAN PLATELET VOLUME 9.2 fl (9.6-12.3); MONO # 0.7 10*3/uL (0.1-1.0); MONO % 7.6 % (3.0-9.0); NEUT # 5.9 10*3/uL (2.3-7.9); NEUT % 64.9 % (47.0-73.0); PLATELET COUNT AUTOMATED 328 10*3/uL (130-400); RED BLOOD COUNT 4.85 10*6/uL (4.50-5.90); RED CELL DISTRI WIDTH 19.3 % (0-14.5)
[2019-09-19 15:13] LABS: ACT PARTIAL THROMBO TIME 26.8 SECONDS (20.0-32.1); INTERNATIONAL NORM RATIO 0.9 (2.0-3.5)
[2019-09-19 15:16] LABS: ALBUMIN 3.5 gm/dl (3.1-4.5); ALKALINE PHOSPHATASE 108 U/L (45-117); BUN 12 mg/dl (7-24); CHLORIDE 104 mmol/L (98-107); CREATININE 1.09 mg/dL (0.70-1.30); POTASSIUM 4.5 mmol/L (3.5-5.1); SGOT/AST 34 IU/L (3-35); SGPT/ALT 57 U/L (12-78); SODIUM 138 mmol/L (136-145); TOTAL PROTEIN 6.8 gm/dL (6.4-8.2)
[2019-09-19 15:17] LABS: ABG BASE EXCESS -0.9 mmol/L (-2.0-2.0); ARTERIAL BLOOD GAS PH 7.382 (7.35-7.45)
[2019-09-19 15:21] LABS: TROPONIN I < 0.015 ng/ml (<0.045)
[2019-09-19 15:57] VITALS: BP 105/60
--- NOTE | 2019-09-19 16:45 | NUR ---
PT STATES PERCOCET EFFECTIVE FOR PAIN.
--- NOTE | 2019-09-19 18:40 | NUR ---
PT SITTING ON THE EDGE OF THE BED EATING DINNER WITH NO VOICED COMPLAINTS AT THIS TIME.
[2019-09-19 18:46] VITALS: BP 120/76
[2019-09-19 20:22] VITALS: BP 105/52
[2019-09-19 20:35] VITALS: BP 122/69; BP 133/69
--- NOTE | 2019-09-19 20:35 | NUR ---
A 54, admitted to 4E, under the services of Dr. DIANE KUMAR,SPARKLE Priest with a diagnosis of COPD EXACERBATION. Chief complaint is SOB. Patient arrived via stretcher from ER. Monitor applied. Initial assessment completed. Vital signs taken and recorded. DR. DIANE KUMAR,SPARKLE Priest notified of admission to the unit. Orders received. See assessment for past medical history, medications and allergies. Patient and/or family oriented to unit. [facility] visitation policy reviewed. Clothing/patient valuable form completed. AILIN PALOMINO
[2019-09-19] MEDS ORDERED: VICTOZA 2-0.6 MG/0.1 SQ (21:09)
[2019-09-19] MEDS ORDERED: MS CONTIN30 MG PO (21:10)
--- NOTE | 2019-09-19 23:30 | NUR ---
PATIENTS SIGNIFICANT OTHER HERE TO SEE PATIENT AND TAKE HIS PILLS HOME.
[2019-09-20] VITALS: BP 110/56
--- NOTE | 2019-09-20 03:00 | NUR ---
PRN IV DILAUDID GIVEN AT THIS TIME FOR 10/10 BACK AND NECK PAIN, PATIENT A&O X3.
[2019-09-20 08:00] VITALS: BP 123/61
--- NOTE | 2019-09-20 08:00 | NUR ---
Lithographic Photographer Apprentice in to talk to patient. Patient states lives at home alone with his family and his girlfriend checking in on him. There are 0 steps in the home. Physician: Dr. Federico Gross Pharmacy: [facility] Home health services: has [place] [facility] currently and would like to resume those services along with his Passport services Patient's level of ADLs: INDEPENDENT Patient has working utilities: yes DME: nebulizer Follow-up physician's appointment after d/c: he prefers to make his own follow up appt after discharge Does patient want to access PORTAL?: no Discharge plan discussed with patient. He lives at home alone with his family and girlfriend checking in on him. He is independent in his ADLs and ambulation. Discussed home health care services and he does currently have [place] [facility] and [place] services that he would like to continue on discharge. When medically stable he will be discharged to home. His girlfriend will provide transportation on discharge. PATRICK MULLER
--- NOTE | 2019-09-20 11:00 | NUR ---
PRN DILAUDID GIVEN FOR C/O OF BACK PAIN RATING 8/10,
--- NOTE | 2019-09-20 11:31 | NUR ---
PER PT PRN DILAUDID WAS EFFECTIVE
[2019-09-20 12:00] VITALS: BP 126/62
--- NOTE | 2019-09-20 14:52 | NUR ---
PT C/O OF BACK PAIN RATING 10/10 PRN DILAUDID GIVEN PER ORDER
--- NOTE | 2019-09-20 15:30 | NUR ---
PT SITTING UP IN BED READING, NO S&S OF DISTRESS, PER PT DILAUDID WAS EFFECTIVE FOR BACK PAIN
[2019-09-20 16:00] VITALS: BP 122/60
[2019-09-20 20:00] VITALS: BP 142/63
--- NOTE | 2019-09-20 23:01 | NUR ---
PATIENT MEDICATED WITH DILAUDID FOR COMPLAINTS OF PAIN. 0.9% NS INFUSING VIA RIGHT CHEST MEDIPORT AT 100CC/HR WITHOUT DIFFICULTY. RESPIRATIONS REGULAR AND NON-LABORED ON 2L N/C. EXPIRATORY WHEEZES PRESENT. COLOSTOMY PATENT AND INTACT. WILL CONTINUE TO MONITOR. CALL LIGHT IN REACH.
[2019-09-21] VITALS: BP 120/64
--- NOTE | 2019-09-21 03:40 | NUR ---
MEDICATED WITH DILAUDID FOR COMPLAINTS OF PAIN. WILL CONTINUE TO MONITOR.
[2019-09-21 08:00] VITALS: BP 131/67
--- NOTE | 2019-09-21 08:13 | NUR ---
DILAUDID GIVEN FOR GENERALIZED PAIN RATED 7/10. WILL MONITOR. CALL LIGHT WITHIN REACH. ISOLATION PRECAUTIONS MAINTAINED
--- NOTE | 2019-09-21 09:00 | NUR ---
PER PT, DILAUDID WAS EFFECTIVE. PAIN RATED 3/10. CALL LIGHT IN REACH.
[2019-09-21 12:00] VITALS: BP 135/80
--- NOTE | 2019-09-21 12:33 | NUR ---
DILAUDID GIVEN FOR BACK PAIN/GENERALIZED ACHING PAIN RATED 7/10. CALL LIGHT WITHIN REACH. WILL MONITOR.
--- NOTE | 2019-09-21 13:01 | NUR ---
SLEEPING IN CHAIR. NO SXS OF DISTRESS NOTED. DILAUDID SEEMS EFFECTIVE FOR COMPLAINTS. CALL LIGHT IN REACH.
--- NOTE | 2019-09-21 15:40 | NUR ---
Pt does not qualift for home oxygen. Pre Ambulation - BP: 164/72, HR: 101, SPO2: 96% Ambulation - HR: 101-119, SPO2: 94%-96% - Patient denied dizziness, SOB, and unsteadiness for duration of ambulation. Post Ambulation - BP: 170/74, HR: 110, SPO2: 95%
[2019-09-21 16:00] VITALS: BP 110/75
--- NOTE | 2019-09-21 16:23 | NUR ---
DILAUDID GIVEN FOR PAIN RATED 8/10. CALL LIGHT IN REACH. WILL MONITOR. PT IN NO OBVIOUS DISTRESS AT THIS TIME. RESPERS EASY REGULAR ON ROOM AIR, WALKING ARND ROOM.
--- NOTE | 2019-09-21 17:03 | NUR ---
PER PT, DILAUDID WAS EFFECTIVE. CALL LIGHT IN REACH. PAIN RATED 2/10.
[2019-09-21 20:00] VITALS: BP 115/65
--- NOTE | 2019-09-21 22:02 | NUR ---
PATIENT MEDICATED WITH DILAUDID FOR COMPLAINTS OF PAIN. WILL CONTINUE TO MONITOR. CALL LIGHT IN REACH.
[2019-09-22] VITALS: BP 115/60
--- NOTE | 2019-09-22 00:26 | NUR ---
MEDICATED WITH DILAUDID FOR COMPLAINTS OF GENERALIZED PAIN. WILL MONITOR FOR EFFECTIVENESS.
--- NOTE | 2019-09-22 01:30 | NUR ---
DILAUDID EFFECTIVE PER PATIENT. WILL CONTINUE TO MONITOR.
--- NOTE | 2019-09-22 04:20 | NUR ---
PATIENT MEDICATED WITH DILAUDID FOR COMPLAINTS OF PAIN. WILL CONTINUE TO MONITOR.
--- NOTE | 2019-09-22 06:10 | NUR ---
XAVIER SINGLETON RN FROM INFECTION CONTROL AND SAID PATIENT COULD BE TAKEN OUT OF ISOLATION D/T TESTING NEGATIVE FOR VRE.
[2019-09-22 07:56] VITALS: BP 126/68
--- NOTE | 2019-09-22 08:08 | NUR ---
PATIENT COMPLAINS OF CHRONIC PAIN 7 OUT OF 10 ON PAIN SCALE. PAIN MEDICATION NOT DUE UNTIL 08:20. WILL ADMINISTER ON TIME. AILIN VERNON
--- NOTE | 2019-09-22 08:36 | NUR ---
PATIENT RATES CHRONIC PAIN 7 OUT OF 10 ON THE PAIN SCALE. PATIENT WAS GIVEN DILAUDID. WILL REASSESS IN 1 HOUR. AILIN AZEVEDOCC
--- NOTE | 2019-09-22 09:00 | NUR ---
Testing Projects Administrator in to see patient. No new needs or request at this time. When medically stable he will be discharged ot home with the resumption of his [place] [facility] and Passport waiver services.
--- NOTE | 2019-09-22 09:24 | NUR ---
PATIENT RATES PAIN 4 OUT OF 10 ON PAIN SCALE. PAIN MEDICATION WAS EFFECTIVE. AILIN VERNON
--- NOTE | 2019-09-22 10:23 | NUR ---
PATIENT WATCHING TV. PLEASANT AND COOPERATIVE. AILIN GAYTAN SPNRCC
--- NOTE | 2019-09-22 11:12 | NUR ---
Shift chart check completed.
[2019-09-22 12:00] VITALS: BP 137/66
--- NOTE | 2019-09-22 12:32 | NUR ---
MEDICATED FOR C/O PAIN IN THE ABDOMINAL REGION, PT RATES THE PAIN AN 8 ON A PAIN SCALE OF 10, DOES HAVE HERNIA IN THE REGION AROUND THE COLOSTOMY FOR WHICH HE IS SCHEDULED TO SEE A SURGEON AILIN VERNON
--- NOTE | 2019-09-22 12:46 | NUR ---
PATIENT APPLIED NYSTATIN POWDER TO REDDENED GROIN AREA. AILIN VERNON
--- NOTE | 2019-09-22 12:56 | NUR ---
Received call from Ronald Bell bilingual patient support caseworker. Discussed patient being admitted the hospital and discharge planning.
--- NOTE | 2019-09-22 13:29 | NUR ---
PATIENT RATES PAIN A 5 ON PAIN SCALE. PAIN MEDICATION EFFECTIVE. AILIN GAYTAN [facility]
--- NOTE | 2019-09-22 15:53 | NUR ---
MESSAGE LEFT FOR WOUND CARE NURSE TO LOOK AT PTS COLOSTOMY PER DR CONTRERAS.
[2019-09-22 16:00] VITALS: BP 112/57
--- NOTE | 2019-09-22 16:35 | NUR ---
PT CO ABDOMINAL PAIN RATED A 9/10. MEDICATED WITH PRN DILAUDID ORDERED. CALL LIGHT WITHIN REACH. WILL CONTINUE TO MONITOR.
--- NOTE | 2019-09-22 17:00 | NUR ---
PT STATES PAIN IS NOW A 5/10. PAIN MED WAS EFFECTIVE. WILL CONTINUE TO MONITOR.
--- NOTE | 2019-09-22 17:43 | NUR ---
PT WANTED TO WAIT TO GET HUMALOG UNTIL HE HAD HIS FOOD. ADMINSTERED AT THIS TIME.
[2019-09-22 20:00] VITALS: BP 117/70
--- NOTE | 2019-09-22 20:37 | NUR ---
PATIENT MEDICATED WITH DILAUDID FOR "WELL OVER A 10 PAIN" TO LLQ. WILL MONITOR
--- NOTE | 2019-09-22 21:18 | NUR ---
MADE AWARE THAT PATIENT IS HAVING 10/10 AFTER DILUADID DOSE, SEE EMAR. PATIENT STATED THAT AROUND STOMA SITE IS SWOLLEN COMPARED TO NORMAL. AREA IS DISTENDED 3 INCH IN CIRCUMFERENCE, BX4 HYPO ACTIVE TO LLQ. PATIENT IS GRIMACING AND PANTING WITH PAIN. STATED TO GIVE X1 DOSE OF DILUADID 1 MG.
--- NOTE | 2019-09-22 21:25 | NUR ---
COLD THERAPY APPLIED TO HERNIA REGION TO LLQ. PATIENT ALSO ADVISED TO LAY BACK IN BED AND NOT IN SITTING POSITION.
[2019-09-23] VITALS: BP 135/72
--- NOTE | 2019-09-23 | NUR ---
SWEELIGN TO OSTOMY SITE NOTABLY DECREASED. ICE REFILLED AT THIS TIME. PATIENT STATES, "I THINK I WANT TO BE TRANSFERED TO [facility]," STATED THAT DOCTOR CAN DISCUSS THAT IN THE MORNING WITH HIM ONCE DOCTOR IS AVAILBLE. PATIENT STATED OK.
--- NOTE | 2019-09-23 00:42 | NUR ---
PATIENT MEDICATED WITH DILAUDID FOR 10/10 PAIN. WILL MONITOR
--- NOTE | 2019-09-23 00:45 | NUR ---
PATIENT MEDICATED WITH VISTARIL FOR C/O ANXIOUSNESS. WILL MONITOR
--- NOTE | 2019-09-23 01:42 | NUR ---
DILAUDID APPEARS EFFECTIVE. PATIENT IS SNORING, EYES CLOSED. NO DISTRESS NOTED. CALL TUNDE MARIE
--- NOTE | 2019-09-23 01:45 | NUR ---
VISTARIL APPEARS EFFECTIVE. PATIENT SNORING, EYES CLOSED. NO DISTRESS NOTED. CALL LIGHT WITHI NREACH
--- NOTE | 2019-09-23 05:25 | NUR ---
PATIENT MEDICATED WITH DILAUDID FOR C/O 10/10 ABD PAIN.
--- NOTE | 2019-09-23 06:25 | NUR ---
DILAUDID APPEARS EFFECTIVE. PATIENT SNORING, EYES CLOSED. NO DISTRESS NOTED. CALL LIGHT WITHIN REACH.
[2019-09-23 08:00] VITALS: BP 135/68
--- NOTE | 2019-09-23 08:39 | NUR ---
CALLED PER REQUEST BY PT. PT WANTING DILAUDID BUT WAS TOO SOON TOO GIVE IT PER CURRENT ORDERS. PT ALSO REQUESTING TO BE TRANSFERRED TO [facility] FOR FURTHER CARE DUE TO ABDOMINAL PAIN. GAVE ORDERS FOR ONE TIME 2MG DILAUDID TO BE GIVEN AND SAID HE WOULD SET UP TRANSFER WHEN HE COMES IN.
--- NOTE | 2019-09-23 09:10 | NUR ---
DILAUDID GIVEN FOR "SEVERE" PAIN TO ABD PER PT PER ORDER. WILL MONITOR. CALL LIGHT WITHIN REACH. ICE PACK PROVIDED FOR ABD DISCOMFORT.
--- NOTE | 2019-09-23 09:39 | NUR ---
DILAUDID WAS EFFECTIVE PER PT. STATES HIS PAIN IS STILL THERE BUT IS MUCH BETTER. CALL LIGHT WITHIN REACH. TALKING ON PHONE WITHOUT DISTRESS.
--- NOTE | 2019-09-23 11:13 | NUR ---
Received call from Nicole at [facility] med call regarding patient transfer to [facility]. She is calling [facility] to see if they are in network. She states [facility] Medicaid and [employer] are not in network. Awaiting return call to see if they are in network to be able to proceed with transfer.
--- NOTE | 2019-09-23 11:25 | NUR ---
Notified patient and nurse of patient possibility not being in network with [facility]. Patient upset stating "oh they want to be in charge now. I researched this insurance before I got it and the Medicare part would be in network." Explained CM just wanted to notify him just in case they were to say [facility] is not in network. Awaiting return call from [facility] Med Call.
--- NOTE | 2019-09-23 11:42 | NUR ---
Spoke to Jemima Dahl at [facility] regarding transferring patient to [facility] under the services of Dr. Carbajal. Auth # [id number]. Notified Alana at [facility] Med Call along with nurse and patient.
[2019-09-23 12:00] VITALS: BP 131/75
--- NOTE | 2019-09-23 13:04 | NUR ---
DILAUDID GIVEN FOR COMPLAINTS OF ABD PAIN. CALL LIGHT IN REACH. TALKING ON PHONE WITHOUT DISTRESS. VSS. FAMILY AT BEDSIDE.
[2019-09-23 16:00] VITALS: BP 116/61
--- NOTE | 2019-09-23 17:37 | NUR ---
DILAUDID GIVEN PER PATIENT REQUEST FOR COMPLAINTS OF ABDOMINAL PAIN RATED 10/10. WILL ASSESS EFFECTIVENEES.
--- NOTE | 2019-09-23 18:16 | NUR ---
DILAUDID EFFECTIVE PER PATIENT. WILL CONTINUE TO MONITOR.
[2019-09-23 20:00] VITALS: BP 116/65
--- NOTE | 2019-09-23 21:16 | NUR ---
PATIENT MEDICATED WITH DILAUDID FOR C/O 10 PAIN AND TRANSFER TO [facility]. COMPUTER NETWORKER FROM [facility].
--- NOTE | 2019-09-23 21:18 | NUR ---
Discharge instructions reviewed with patient. Patient receptive and verbalizes understanding. Follow-up care TO BE arranged BY [facility]. Written instructions given to AMBULANCE TRANSPORT. REPORT GIVEN TO FUR IRONER. LILIAM SAMS
--- NOTE | 2019-09-23 21:38 | NUR ---
REPORT GIVEN TO SAMANTHA AT [facility].
== END 2019-09-23 21:38 | disposition short-term general hospital (02) | DRG 191 ==
LOC: ED 14:28 → EDHOLD 15:45 → 4E 15:45
PROVIDERS: Emergency Medicine; ADMIT Internal Medicine
DX: J44.1 Chronic obstructive pulmonary disease with (acute) exacerbation (principal); I50.22 Chronic systolic (congestive) heart failure; J45.41 Moderate persistent asthma with (acute) exacerbation; D68.51 Activated protein C resistance; B00.1 Herpesviral vesicular dermatitis; E11.9 Type 2 diabetes mellitus without complications; F41.1 Generalized anxiety disorder; I11.0 Hypertensive heart disease with heart failure; E66.01 Morbid (severe) obesity due to excess calories; G89.4 Chronic pain syndrome; R14.0 Abdominal distension (gaseous); M47.896 Other spondylosis, lumbar region; E78.2 Mixed hyperlipidemia; K21.9 Gastro-esophageal reflux disease without esophagitis; G25.81 Restless legs syndrome; K20.9 Esophagitis, unspecified; N40.1 Benign prostatic hyperplasia with lower urinary tract symptoms; R33.8 Other retention of urine; G47.33 Obstructive sleep apnea (adult) (pediatric); Z93.3 Colostomy status; Z79.899 Other long term (current) drug therapy; Z68.39 Body mass index [BMI] 39.0-39.9, adult; Z79.4 Long term (current) use of insulin; Z85.038 Personal history of other malignant neoplasm of large intestine

== ENCOUNTER 2019-10-09 15:46 | Inpatient (IN) | payer OTHER ==
[~2019-10-09] VITALS: Ht 188 cm; Wt 130.3 kg
[~2019-10-09 15:46] MED LIST changes: +VICTOZA 2-0.6 MG/0.1 SQ
--- NOTE | 2019-10-09 16:25 | NUR ---
A 54, admitted to , under the services of Dr. DIANE KUMAR,SPARKLE Priest with a diagnosis of COPD, CHF. Chief complaint is SHORTNESS OF BREATH, LEG SWELLING. Patient arrived via wheel chair from [place]. Monitor applied. Initial assessment completed. Vital signs taken and recorded. DR. DIANE KUMAR,SPARKLE Priest notified of admission to the unit. Orders received. See assessment for past medical history, medications and allergies. Patient and/or family oriented to unit. [facility] visitation policy reviewed. Clothing/patient valuable form completed. DANIELA RIBERA
[2019-10-09 16:30] VITALS: BP 134/64
[2019-10-09] MEDS ORDERED: DILAUDID2 M1 PO (16:47)
[2019-10-09] MEDS ORDERED: PYRIDIUM100 MG PO (16:53)
--- NOTE | 2019-10-09 17:22 | NUR ---
NOTIFIED & OF NEW CONSULTS
--- NOTE | 2019-10-09 19:16 | NUR ---
PT C/O NAUSEA AND MEDICATED WITH IV ZOFRAN PER ORDER. WILL MONITOR
[2019-10-09 19:21] LABS: BASO # 0.1 10*3/uL (0.0-0.1); BASO % 0.5 % (0.0-1.0); EOS # 0.2 10*3/uL (0.0-0.4); EOS % 2.2 % (1.0-4.0); HEMATOCRIT 33.7 % (42.0-52.0); HEMOGLOBIN 9.6 g/dl (14.0-18.0); LYMPH # 2.9 10*3/uL (1.3-4.4); MEAN CORPUSCULAR HGB 19.1 pg (27.0-31.0); MEAN CORPUSCULAR HGB CONC 28.5 g/dl (33.0-37.0); MEAN PLATELET VOLUME 8.8 fl (9.6-12.3); MONO # 0.9 10*3/uL (0.1-1.0); MONO % 8.8 % (3.0-9.0); NEUT # 6.1 10*3/uL (2.3-7.9); PLATELET COUNT AUTOMATED 385 10*3/uL (130-400); RED BLOOD COUNT 5.03 10*6/uL (4.50-5.90); WHITE BLOOD COUNT 10.2 10*3/uL (4.8-10.8)
--- NOTE | 2019-10-09 19:25 | NUR ---
PATIENT AWAKE, RESTING IN BED. NO SIGNS OF DISTRESS. RESPIRATIONS EASY, NON LABORED. VOICES NO COMPLAINTS. BED IN LOWEST POSITION,CALL LIGHT WITHIN REACH. WILL CONTINUE TO MONTIOR.
[2019-10-09 19:37] LABS: ALBUMIN 3.8 gm/dl (3.1-4.5); ALKALINE PHOSPHATASE 126 U/L (45-117); BUN 12 mg/dl (7-24); CHLORIDE 102 mmol/L (98-107); CREATININE 1.15 mg/dL (0.70-1.30); SGOT/AST 15 IU/L (3-35); SGPT/ALT 36 U/L (12-78); SODIUM 137 mmol/L (136-145); TOTAL PROTEIN 7.5 gm/dL (6.4-8.2)
[2019-10-09 19:41] LABS: POTASSIUM 3.8 mmol/L (3.5-5.1)
[2019-10-09 20:00] VITALS: BP 136/68
--- NOTE | 2019-10-09 21:30 | NUR ---
PATIENT STATES PAIN MEDICATION GIVEN EARLIER WAS EFFECTIVE. WILL CONTINUE TO MONITOR.
--- NOTE | 2019-10-09 23:32 | NUR ---
PATIENT MEDICATED WITH SCHEDULED DILAUDID. C/O LEFT SIDED ABDOMINAL PAIN WHERE HERNIA/COLOSTOMY IS. RATES 02/03. WILL CHECK EFFECTIVNESS.
--- NOTE | 2019-10-09 23:55 | NUR ---
PATIENT WANTING TO CHANGE COLOSTOMY. GIVEN SUPPLIES TO DO SO.
[2019-10-10] VITALS: BP 133/67
--- NOTE | 2019-10-10 05:30 | NUR ---
PATIENT SLEEPING, DILAUDID EFFECTIVE. WILL CONTINUE TO MONITOR.
[2019-10-10 08:00] VITALS: BP 136/66
--- NOTE | 2019-10-10 09:00 | NUR ---
Central Office Installer in to talk to patient. Patient states lives at home alone with his family and his girlfriend checking in on him. There are 0 steps in the home. Physician: Dr. Federico Gross Pharmacy: [facility] services: has [place] Living currently Patient's level of ADLs: INDEPENDENT Patient has working utilities: yes DME: nebulizer Follow-up physician's appointment after d/c: he prefers to make his own follow up appt after discharge Does patient want to access PORTAL?: no Discharge plan discussed with patient. He lives at home alone with his family and girlfriend checking in on him. He is independent in his ADLs and ambulation. Discussed short term SNF and he is agreeable. When provided with a list of facilities he [facility]. [facility]. c4 planner notified. PATRICK MULLER
--- NOTE | 2019-10-10 09:48 | NUR ---
CLARE KUMARI [id number] Please refer to the physician's history and physical for past medical history, comorbid conditions, and allergies. Diagnosis: CHF ACUTE ASTHMA EXB Jesus Score: 21,LOW OR NO RISK WOUND DESCRIPTIONS: Wound Number: 1 Location of the wound: RIGHT LOWER EXTREMITY Type of wound: TRAUMATIC Thickness: Partial Size: 1.1cm X 1.4cm X 0.1cm Tunneling: NONE Undermining: NONE Sinus Tract: NONE Presence of Exudate: Serous Amount: Light Color: Red Odor: None Periwound Skin Appearance: Normal Wound edges: APPROXIMATED Pain (associated with wound): DENIED AT TIME OF ASSESSMENT How does patient state this happened? PATIENT STATES HE BUMPED THIS AREA AT HOME. If wound is on legs/feet or hands, capillary refill time, pulses, color temp, sensation: CAP REFILL < 3 SECONDS. PATIENT DENIES ANY OTHER OPEN AREAS AT TIME OF ASSESSMENT. Surface the patient is resting on: Isoflex SKIN PREVENTION RECOMMENDATION: 1. Pressure redistribution support surface as appropriate 2. Elevate heels 3. Remove boots/TEDS every shift and reapply 4. Head of bed 30 degrees as tolerated 5. Assess nutrition and hydration 6. Manage moisture 7. Avoid the use of containment devices while in bed 8. Use absorptive products on surfaces limit layers of linens on bed 9. Turn and reposition every 1-2 hours in bed and every 1 hour in chair as tolerated 10. Weight shifts every 15 minutes while up in chair 11. Offloading with pillows or device to keep heels elevated off bed 12. Monitor skin at least every shift 13. Inspect under medical devices twice a day WOUND TREATMENT RECOMMENDATIONS: PARTIAL THICKNESS GUIDELINES TO RIGHT LOWER EXTREMITY: CLEANSE WITH NSS APPLY SUREPREP AROUND THE WOUND ALLOW TO DRY APPLY HYDROGEL TO WOUND BED AND COVER WITH OPTIFOAM GENTLE. CHANGE EVERY TWO DAYS AND PRN SOILING.
--- NOTE | 2019-10-10 10:53 | NUR ---
ZOFRAN GIVEN PER PATIENT REQUEST FOR COMPLAINTS OF NAUSEA. WILL ASSESS EFFECTIVENESS.
--- NOTE | 2019-10-10 11:30 | NUR ---
Occupational Therapy evaluation completed on 4 with full eval to follow. Precautions include fall risk; h/o fall 1 wk prior at home,obesity,SOB w/ min exertion, colostomy,LE edema,moderate complexity level 80283. Recommend OT per POC and SNF to enable return home at independent level in ADLs, good safety and indep mobility and transfers in ADLs. Thank you. Noemi Temple OTR/L
--- NOTE | 2019-10-10 11:59 | NUR ---
PATIENT IN ROOM CURRENTLY GETTING ECHO DONE. MEDS TO BE GIVEN WHEN FINISHED.
[2019-10-10 12:00] VITALS: BP 131/79
--- NOTE | 2019-10-10 12:24 | NUR ---
PHYSICAL THERAPY Kendy completed moderated level of complexity 68173 pt would benefit from SNF at discharge, multiple admissions per pt "just getting weaker" PT to work on transfers,amb,balance,safety,strengthening. Cecilia Khan PT
--- NOTE | 2019-10-10 12:42 | NUR ---
Nutritional Support Services Note: Appetite is good for meals. He receives a NCS diet as ordered. He has a good understanding of the diet. Ht.6'2 Wt.303#. Skin tear noted to right croft. Encouraged healthy eating with adequate protein to help promote healing. Pt states he eats good. Will follow if needed. Jacqueline Griffith Rdn Ld
--- NOTE | 2019-10-10 13:33 | NUR ---
Patient requesting a referral to [facility]. [facility]ed [facility], they do not have an available beds at this time. Contacted [facility] and faxed entire referral. Requires precert. Waiting on review/acceptance.
--- NOTE | 2019-10-10 13:40 | NUR ---
PHYSICAL THERAPY Screen and PT eval received pt assessed and is on caseload, thank you Cecilia Khan PT
--- NOTE | 2019-10-10 14:16 | NUR ---
[facility] questioning why patient is taking seraquel but other than that patient looks fine to them. they will come here Sunday morning to do an onsite and then start precert if patient is stable
[2019-10-10 16:00] VITALS: BP 129/70
[2019-10-10 20:00] VITALS: BP 140/68
--- NOTE | 2019-10-10 21:05 | NUR ---
NOTIFIED DR. MOYER OF PATIENTS BLOOD SUGAR, 498. STATED TO DECREASE HIS SOLU MEDROL TO 20MG BID AND GIVE 25 UNITS OF INSULIN NOW.
--- NOTE | 2019-10-10 21:55 | NUR ---
1X DOSE OF 25UNITS OF HUMALOG GIVEN AT THIS TIME. WILL CONTINUE TO MONITOR.
--- NOTE | 2019-10-10 23:14 | NUR ---
PATIENT HAVING LEG SPASMS. STATES HE BELIEVES HE IS HAVING WITHDRAWL FROM NOT HAVING HIS MS CONTIN. NOTIFIED DR. MOYER. STATED TO ORDER ABGS. SHE DOES NOT BELIEVE HE IS HAVING SPASMS TO DO WITHDRAWLING BECAUSE HE IS GETTING IV DILAUDID EVERY 4 HOURS. RESPIRATORY NOTIFIED OF STAT ABGS. WILL CONTINUE TO MONITOR.
[2019-10-10 23:29] LABS: ABG BASE EXCESS -3.7 mmol/L (-2.0-2.0); ARTERIAL BLOOD GAS PH 7.39 (7.35-7.45)
[2019-10-11] VITALS: BP 131/71
--- NOTE | 2019-10-11 03:58 | NUR ---
DILAUDID GIVEN FOR C/O ABDOMINAL PAIN RATED 8/10. PATIENT ALSO COMPLAINING OF RESTLESS LEGS. CALL LIGHT IN REACH.
[2019-10-11 06:15] LABS: BASO % 0.3 % (0.0-1.0); HEMATOCRIT 36.9 % (42.0-52.0); HEMOGLOBIN 10.4 g/dl (14.0-18.0); LYMPH % 20.3 % (27.0-41.0); MEAN CORPUSCULAR HGB 18.9 pg (27.0-31.0); MEAN CORPUSCULAR HGB CONC 28.2 g/dl (33.0-37.0); MEAN PLATELET VOLUME 9.7 fl (9.6-12.3); MONO # 0.8 10*3/uL (0.1-1.0); MONO % 5.3 % (3.0-9.0); NEUT # 10.8 10*3/uL (2.3-7.9); NEUT % 73.4 % (47.0-73.0); PLATELET COUNT AUTOMATED 428 10*3/uL (130-400); RED BLOOD COUNT 5.51 10*6/uL (4.50-5.90); RED CELL DISTRI WIDTH 19.4 % (0-14.5); WHITE BLOOD COUNT 14.7 10*3/uL (4.8-10.8)
[2019-10-11 06:33] LABS: BUN 17 mg/dl (7-24); CHLORIDE 102 mmol/L (98-107); CREATININE 1.18 mg/dL (0.70-1.30); POTASSIUM 4.4 mmol/L (3.5-5.1); SODIUM 137 mmol/L (136-145)
[2019-10-11 08:00] VITALS: BP 132/84
[2019-10-11 12:00] VITALS: BP 132/77
[2019-10-11 16:00] VITALS: BP 130/70
[2019-10-11 20:00] VITALS: BP 115/72
[2019-10-12] VITALS: BP 122/47
--- NOTE | 2019-10-12 01:01 | NUR ---
PATIENT COMPLAINED OF NOT BEING ABLE TO SLEEP. DR MOYER NOTIFIED AND SHE ORDERED VISTARIL 25 MG. WILL PUT ORDERS IN.
[2019-10-12 06:09] LABS: BUN 24 mg/dl (7-24); CHLORIDE 101 mmol/L (98-107); CREATININE 1.24 mg/dL (0.70-1.30); POTASSIUM 4.5 mmol/L (3.5-5.1); SODIUM 137 mmol/L (136-145)
--- NOTE | 2019-10-12 07:30 | NUR ---
PT RESTING IN CHAIR. NO COMPLAINTS AT THIS TIME. DENIES SOB AT REST. ASSESSMENT COMPLETE. RESPIRATIONS EASY AND REGULAR. CALL LIGHT WITHIN REACH. WILL CONTINUE TO MONITOR.
[2019-10-12 08:00] VITALS: BP 134/74
--- NOTE | 2019-10-12 08:29 | NUR ---
DILAUDID GIVEN ORDERED. WILL CHECK EFFECTIVENESS.
--- NOTE | 2019-10-12 09:15 | NUR ---
PT STATES PAIN MED WAS EFFECTIVE.
[2019-10-12 11:59] VITALS: BP 101/68
--- NOTE | 2019-10-12 12:32 | NUR ---
DILAUDID GIVEN PRESCIBED. WILL CHECK EFFECTIVENESS.
--- NOTE | 2019-10-12 13:30 | NUR ---
PT STATES PAIN MED WAS SOMEWHAT EFFECTIVENESS. WILL MONITOR.
--- NOTE | 2019-10-12 14:53 | NUR ---
PT RESTING IN BED. GIRL FRIEND AT BEDSIDE. PT CO SOME LEFT SIDED ABDOMINAL PAIN AND WANTS SOMETHING FOR IT. OFFERED PT AN HEATING PAD OR ICE PACK AND EXPLAINED TO PT HIS DILAUDID IS NOT DUE YET. NO OTHER COMPLAINTS. CALL LIGHT WITHIN REACH. WILL CONTINUE TO MONITOR.
--- NOTE | 2019-10-12 15:09 | NUR ---
24 HR chart check completed.
--- NOTE | 2019-10-12 15:30 | NUR ---
NOTIFIED PT REQUESTING SOMETHING ELSE FOR PAIN AND WOULD LIKE TO BE PUT BACK ON THE IV DILAUDID. NO NEW ORDERS RECEIVED. KEEP ORDERS THE SAME PER .
[2019-10-12 16:00] VITALS: BP 148/82
--- NOTE | 2019-10-12 16:59 | NUR ---
PT CO FEELING NAUSEOUS AND REQUESTING MEDICATION. MEDICATED WITH PRN ZOFRAN ORDERED. WILL CHECK EFFECTIVENESS.
--- NOTE | 2019-10-12 17:30 | NUR ---
PT STATES ZOFRAN WAS EFFECTIVE. WILL CONTINUE TO MONITOR.
[2019-10-12 20:00] VITALS: BP 130/76
[2019-10-13] VITALS: BP 127/72
[2019-10-13 06:45] LABS: BUN 27 mg/dl (7-24); CHLORIDE 96 mmol/L (98-107); CREATININE 1.16 mg/dL (0.70-1.30); POTASSIUM 3.8 mmol/L (3.5-5.1); SODIUM 133 mmol/L (136-145)
--- NOTE | 2019-10-13 07:30 | NUR ---
PT RESTING IN BED. NO COMPLAINTS AT THIS TIME. ASSESSMENT COMPLETE. CALL LIGHT WITHIN REACH. WILL CONTINUE TO MONITOR.
--- NOTE | 2019-10-13 07:34 | NUR ---
CALLED REGARDING HER NOTE ABOUT SEROQUEL BEING DISCOUNTINUED BECAUSE OF THE TREMORS, BUT MED WAS STILL ON THE PTS EMAR. PER OK TO GO AHEAD AND DISCONTINUE TO SEROQUEL.
[2019-10-13 08:00] VITALS: BP 136/72
--- NOTE | 2019-10-13 08:28 | NUR ---
PATIENT COMPLAINS OF GENERALIZED PAIN 7 OUT OF 10 ON PAIN SCALE. ADMINISTERED DILAUDID PER ORDER. WILL CHECK IN A HOUR TO SEE IF PAIN IS RELIEVED. AILIN AZEVEDOCC
--- NOTE | 2019-10-13 09:17 | NUR ---
PATIENT STATES "I FEEL A LITTLE BETTER". PATIENT NOW RATES PAIN ON SCALE A 6. ENCOURAGED TO REPOSITION TO HELP RELIEVE PAIN. WILL CONTINUE TO MONITOR. AILIN AZEVEDOCC
--- NOTE | 2019-10-13 10:00 | NUR ---
PHYSICAL THERAPY Patient seen this am 1;1 for therapy visit and was sitting up in bedside chair upon therapist arrival. Patient identified by name / and very pleasant this morning voicing 10/10 R lower quadrant pain around Colostomy bag entry port. Patient states this has been hurting since last evening and nursing was aware of his c/o. Patient transfers sit to stand CGA and ambulates CGA, no AD to bathroom, demonstrating slow, "waddling" gait pattern. Patient resting HR 118 bpm prior to gait ex as patient ambulated additional 40'x 1, while returning to bedside chair with increased HR 135 bpm. Patient stated he felt increased fatigue but otherwise no new c/o's. Following brief seated rest HR returend to near baseline. Patient also peformed several additional sit to stand transfers CGA and tolerated eyes open / closed with only slight LOB. Patient remained in bedside chair with call light, tray table and cell phone. Will continue per POC as tolerated, total treatment time 18 minutes. Daniel Diez, NEON ELECTRICIAN
--- NOTE | 2019-10-13 10:06 | NUR ---
PATIENT RESTING IN CHAIR WATCHING TV. NO COMPLAINTS AT THIS TIME. WILL CONTINUE TO MONITOR. AILIN VERNON
--- NOTE | 2019-10-13 10:12 | NUR ---
OT NOTE PATIENT SEEN OT THIS DATE 10 MINUTES. PATIENT IDENTIIFED BY NAME AND DATE OF . PATIENT SEATED IN RECLINER WITH NURSING UPON ARRIVAL.COMPLETED SIT TO STAND FORM RECLINER CGA. COMPLETED UB/LB DRESSING CGA TASK STANDING UB AND SEATED LB DRESSING CGA TASK. PATIENT COMPLETED FUNCTIONAL AMBULATION WITHOUT DEVICE TO AND FROM BATHROOM CGA. COMPLETED GROOMING ACTIVITY STANDING AT SINK WASH FACE CGA. PATIENT REPORTS MIN EXERTION DURING ADL TASK STANDING APPROXIMATELY 2 MINUTES EDUCATION PACING SELF WITH TASK. PATIENT DEMONSTRATED RESTING HR 118 BPM AND A HR OF 135 BPM WITH ACTIIVTY. PATIENT IN CARE OF CAFE MANAGER END OF SESSION.CONTINUE TOWARDS PLAN OF CARE. RODRIGUE ALONZO/Mara
--- NOTE | 2019-10-13 10:47 | NUR ---
In to see patient to discuss [facility] is now stating they are out of network with patients insurance. Patient stated he was not really wanting to go to [facility] or [place] and will not go to [facility]. He said he has been to [facility] in the past and liked it there. I asked patient since hes had issues with insurance precert if I could make a copy of his insurance cards to make sure all of the correct information is available. He got up from his chair, ambulated to his duffle bag on the other side of his bed, then back around to the night stand to retrieve his wallet then back to sitting in his recliner. Patient is not on oxygen. When I asked how he would prefer to transport to [place] if he was accepted he stated "that's case managements problem!" "I need to be transported via ambulance, it shouldnt be the patients family responsibililty" I attemtped to explain the qualifications for ambulance transport but patient was insistent he would use ambulance transport. He also stated he is going to search online to see what snf facilities are in network with his insurance.
--- NOTE | 2019-10-13 11:16 | NUR ---
PTS USUALLY TACHY WHEN PT IS UP. PT SITTING IN CHAIR AND HR HANGING IN THE 130s. NOTIFIED. PER LET CARDIOLOGY KNOW. CALLED CARDIO AND REQUESTED A CALL BACK. PT ASYMPTOMATIC.
--- NOTE | 2019-10-13 11:27 | NUR ---
SPOKE TO REGARDING PTS HR. PER HE WAS GOING TO LOOK AT CHANGES PTS MEDS AROUND.
--- NOTE | 2019-10-13 11:34 | NUR ---
24 HR chart check completed.
--- NOTE | 2019-10-13 11:57 | NUR ---
Faxed patients referral again [facility] since they stated they may have one available bed. checking benefits.
[2019-10-13 12:00] VITALS: BP 126/79
--- NOTE | 2019-10-13 12:19 | NUR ---
PATIENT IS SITTING IN HIS CHAIR RESTING AND HAS A VISITOR. PATIENT RATES PAIN A 8 ON PAIN SCALE. ADMINISTERED DILAUDID ORDERED. WILL MONITOR AND REASSESS IN A HOUR. AILIN VERNON
--- NOTE | 2019-10-13 12:22 | NUR ---
Clothing Trades Workers in to see patient with load planner. Discussed short term SNF and he is currently looking into the facilities that are in network with his [facility] insurance. He wants to know if the facility is not in network with [facility] but in network with his secondary [facility] if he can go to that facility. Explained the facility will go with his primary insurance which is [facility] and then [facility] picks up after [facility]. He wishes to discuss the facilities with his girlfriend who will be here shortly. finished goods planner following.
--- NOTE | 2019-10-13 12:30 | NUR ---
OT NOTE Pt was seen this P.M. 1:1 for second OT session consisting of 11 minutes. Upon arrival pt was sitting upright in the recliner. Pt identified by name and and had complaints of "chronic" abdominal pain which he did not rate on 0-10 pain scale. Sit to stand completed from chair level with SBA followed by functional mobility around the room and to the bathroom and back with CGA for safety. Challenged pt's dynamic standing tolerance needed for increased I in self care tasks and functional transfers. Pt was able to tolerate aprox 5 minutes before sitting due to fatigue, pt's heart rate elevated to 135-141 bpm. Pt was left sitting upright in the recliner with call light in hand, traay table in place, and phone at reach. Continue with rec D/C plan to SNF. CLINTON Goldberg/Mara
--- NOTE | 2019-10-13 12:31 | NUR ---
HEART RATE ELAVTED UP TO 120'S WITH AMBULATION AILIN GAYTAN SPNRCC
--- NOTE | 2019-10-13 12:31 | NUR ---
PHYSICAL THERAPY Patient presented to therapy at 12:30 pm in sitting position in bedside chair with visitor in room with patient. Patient gives informed consent for treatment. Patient was identified by name and on wristband. Patient sit to stand out of bedside chair with SBA. Patient ambulated with no assistive device and Close Supervision for 50' x 1 and pulse increasing to 140 bpm WHILE PERFORMING GAIT. Standing rest breaks provided so heart rate would come down to 118-122. Patient is mildly SOB during gait. Patient was left in bedside chair with call light within reach and tray table near patient. Patient was 1:1 with this CASINO RUNNER for 12 minutes total MARILIN SMITH PTA
--- NOTE | 2019-10-13 12:53 | NUR ---
[facility] and [facility] are out of network with patients insurance.
--- NOTE | 2019-10-13 12:59 | NUR ---
Patient referral faxed to [facility] where patient states insusrance should be in network.
--- NOTE | 2019-10-13 13:23 | NUR ---
PAIN MEDICINE WAS EFFECTIVE, RATES PAIN A 6 ON PAIN SCALE. PATIENT IS SITTING UP IN HIS CHAIR WITH HIS VISITOR. AILIN VERNON
--- NOTE | 2019-10-13 14:57 | NUR ---
In to see patient with Custom Applicator Olga. Discussed with patient that he has been seen by myself and a physical therapist assistance ambulating 100% independent and will not qualify for correction facility. Patient stated "fine! I don't understand and it makes me kind of mad, but fine!". Daughter at bedside stating Dr. Gross is the one who wants him to go. As XIAO Espinoza stated, regardless of what Dr. Gross wants, if patient is independent and doesn't qualify the insurance will not pay for it. Patient asked for PT/OT to be sent to the home with [facility].
[2019-10-13 16:00] VITALS: BP 116/62
[2019-10-13 20:00] VITALS: BP 131/63
--- NOTE | 2019-10-13 20:32 | NUR ---
PATIENT IS AAOX3 WITH EASY AND REGULAR RESPERS ON ROOM AIR. ASSESSMENT IS COMPLETE WITH NO S/S OF DISTRESS NOTED AT THIS TIME. PATIENT C/O ABDOMINAL PAIN RATING A 10/10. BED IS LOW, LOCKED, AND CALL LIGHT IS WITHIN REACH. WILL CONTINUE TO MONITOR, SEE SHIFT ASSESSMENT.
--- NOTE | 2019-10-13 20:35 | NUR ---
CALL PLACED TO DR. CONTRERAS IN REGARDS TO PAIN MANAGEMENT. NO CHANGES TO CURRENT MANAGEMENT.
--- NOTE | 2019-10-13 22:59 | NUR ---
SCHEDULED DILAUDID GIVEN PER ORDER. PATIENT TOLERATED WELL, WILL MONITOR EFFECT.
--- NOTE | 2019-10-13 23:54 | NUR ---
DILAUDID EFFECTIVE PER PATIENT.
[2019-10-14] VITALS: BP 128/71
--- NOTE | 2019-10-14 03:26 | NUR ---
CHART CHECK COMPLETE.
--- NOTE | 2019-10-14 04:27 | NUR ---
PATIENT IS REQUESTING MORE PAIN MEDICATION STATING "I HAVE SEVERE ABDOMINAL PAIN IT IS A 10/10. IS THERE ANYTHING YOU CAN DO?" VERY CALMLY NO GRIMACING NOTICED AT THIS TIME. INFORMED PATIENT THE ONLY THING NURSE CAN DO IS PLACE CALL TO DR. BIANCHI PLACED TO DR. CONTRERAS WITH NO NEW ORDERS RECIEVED AT THIS TIME.
--- NOTE | 2019-10-14 09:44 | NUR ---
DR CONTRERAS GIVES VOICE ORDERS FOR PT TO HAVE DILAUDID Q4H INSTEAD OF PREVIOUSLY ORDERED Q6H. ORDERS GIVEN AT PT BEDSIDE DUE TO PATIENT C/O INCREASED PAIN. APPROPRIATE ORDERS PLACED. WILL GIVE MEDICATION WHEN AVAILABLE. PT AWARE.
--- NOTE | 2019-10-14 10:30 | NUR ---
Copy Chief in to see patient. No new needs or request at this time. Discussed discharge planning with Dr. Gross. Plan is to discharge patient tomorrow. When medically stable he will be discharged to home with [facility].
--- NOTE | 2019-10-14 10:53 | NUR ---
OT NOTE PT was seen this A.M. 1:1 for 15 minute OT session. Upon arrival pt was sitting upright in the recliner. Pt identified by name and and had complaints of abdominal pain which he did not rate on 0-10 pain scale. Pt completed sit to stand from chair level with SBA. Challenged pt's dynamic standing tolerance needed for increased I in self care tasks and functional transfers. Pt was able to tolerate aprox 4 minutes at a time before sitting due to fatigue. Functional mobility completed to the bathroom with SBA. There he transferred on/off standard commode with SBA. Pt was left sitting upright in the recliner with call ligh tin hand, tray table in place, and phone in reach. Continue with rec D/C plan to SNF. CLINTON Goldberg/Mara
--- NOTE | 2019-10-14 10:54 | NUR ---
PHYSICAL THERAPY Patient seen this am 1;1 for therapy visit and was sitting up in bedside chair upon therapist arrival. Patient identified by name / and reports 10/10 L lower abdominal discomfort around Colostomy port. Patient also stated he has been feeling a little Nausea this morning, only eating a light breakfast. Patient recorded resting HR 131 bpm prior to treatment and tranfers sit to stand SBA. Patient ambulates without AD, > 100'x 1, SBA, demonstrating slow, steady tea and no LOB. Patient HR remained in the low 130's throughout entire gait ex as patient returned to bedside chair with only mild fatigue. Patient remained in chair with call light, tray table and cell phone. Will continue per POC as tolerated, total treatment time 14 minutes. Daniel Diez, MACHINE LOADER
[2019-10-14 12:00] VITALS: BP 114/73
--- NOTE | 2019-10-14 15:00 | NUR ---
PT SITTING UP IN CHAIR, ALERT ORIENTED AND PLEASANT; VISITING WITH FAMILY. NO S/S OF DISTRESS AT THIS TIME. PT VOICES NO COMPLAINTS RESPIRATIONS UNLBORED. CALL LIGHT IN REACH.
[2019-10-14 16:00] VITALS: BP 122/76
--- NOTE | 2019-10-14 18:30 | NUR ---
DR CONTRERAS NOTIFIED THAT PT IS C/O NAUSEA AND INCREASED PAIN. PT STATES THAT HE "FEELS THE WAY HE DID WHEN HE HAD AN NG TUBE ONE YEAR AGO". DR CONTRERAS NOTIFIED OF THIS. PHYSICIAN ORDERS GIVEN TO GIVE PT CLEAR LIQUID DIET UNTIL MORNING. WILL NOITFY PATIENT OF NEW ORDERS. WILL CONTINUE TO MONITOR.
[2019-10-14 20:00] VITALS: BP 149/96
--- NOTE | 2019-10-14 20:06 | NUR ---
PATIENT IS AAOX3, YELLING OUT STATING "MY STOMACH FEELS THE SAME WAY IT DID WHEN I NEEDED TO GET AN NG TUBE, IS THERE ANYTHING ANYONE CAN DO?" INFORMED PATIENT THAT CALL WOULD HAVE TO BE PLACED TO DR. CONTRERAS AND WOULD HAVE TO PRCEED FROM THERE. ASSESSMENT IS COMPLETE. CALL LIGHT IS WITHIN REACH. WILL CONTINUE TO MONITOR, SEE SHIFT ASSESSMENT.
--- NOTE | 2019-10-14 20:30 | NUR ---
DR. MOYER CONTACTED AT THIS TIME IN REGARDS TO PATIENT ABDOMINAL PAIN, KUB ORDERED.
--- NOTE | 2019-10-14 21:05 | NUR ---
PATIENT OFF FLOOR FOR IMAGING.
--- NOTE | 2019-10-14 21:59 | NUR ---
DR. MOYER CALLED IN REGARDS TO RESULTS OF KUB. SEE NEW ORDERS.
--- NOTE | 2019-10-14 22:15 | NUR ---
14FR NG tube inserted and secured without difficulty via RIGHT nare. Patient tolerated procedure well. Connected to intermittent suction. PLACEMENT CHECKED WITH AIR AND XRAY. BRUNILDA MILLS A
[2019-10-15] VITALS: BP 172/78
--- NOTE | 2019-10-15 05:56 | NUR ---
3600ML OF GASTRIC CONTENTS REMOVED THROUGHOUT THE NIGHT.
--- NOTE | 2019-10-15 06:12 | NUR ---
Patient stated that he will care for the area to his right lower extremity when he returns home and doesn't wish to follow up in the wound care center upon discharge
[2019-10-15 08:00] VITALS: BP 156/76
--- NOTE | 2019-10-15 09:00 | NUR ---
OT NOTE Attempted to see pt this A.M. for OT session and upon arrival pt reported that he was in 9/10 abdominal pain requesting to rest at this time. Will check back at a later time/date and continue with POC as able. CLINTON Goldberg/Mara
[2019-10-15 12:00] VITALS: BP 136/82
[2019-10-15 16:00] VITALS: BP 139/88
--- NOTE | 2019-10-15 17:29 | NUR ---
PER [facility] PT WILL NEED A PRIOR AUTH ACCEPTING PHYSICIAN IS DR.RICARDO DAMON
[2019-10-15 20:00] VITALS: BP 109/60
--- NOTE | 2019-10-15 21:32 | NUR ---
PRN DILAUDID GIVEN FOR ABDOMINAL PAIN RATED A 7/10. WILL CHECK EFFECTIVENESS.
[2019-10-16] VITALS: BP 123/73
--- NOTE | 2019-10-16 00:38 | NUR ---
ZOFRAN ADMINISTERED FOR PT C/O NAUSEA. WILL MONITOR.
--- NOTE | 2019-10-16 01:56 | NUR ---
DILAUDID ADMINISTERED FOR PT C/O 10/1O GENERALIZED ABDOMINAL PAIN. WILL MONITOR.
--- NOTE | 2019-10-16 02:24 | NUR ---
PT ASLEEP AT THIS TIME. NO SIGNS OF DISCOMFORT OR DISTRESS NOTED.
--- NOTE | 2019-10-16 06:08 | NUR ---
PT ACCIDENTLY REMOVED NG TUBE AT THIS TIME. WILL ATTEMPT TO PLACE A NEW ONE.
--- NOTE | 2019-10-16 06:33 | NUR ---
NEW 14 VIETNAMESE NG TUBE PLACED IN PATIENTS RIGHT NARE. SECURED TO NOSE AND GOWN, AWAITING STAT CHEST XRAY.
--- NOTE | 2019-10-16 06:53 | NUR ---
DILAUDID ADMINISTERED FOR PT C/O OF 10 ABDOMINAL PAIN. WILL MONITOR.
--- NOTE | 2019-10-16 06:54 | NUR ---
SPOKE WITH PURE CULTURE OPERATOR FROM [facility] STATES THAT PATIENT NEEDS AUTHORIZATION THROUGH HIS INSURANCE PRIOR TO ADMISSION TO [facility]. STATES TO CALL [phone] ONCE THE AUTHORIZATION IS COMPLETE.
--- NOTE | 2019-10-16 07:33 | NUR ---
Spoke to Mickie Patel at [facility] regarding transfer to [facility]. Ref # [id number]. Spoke to Cain at [facility] Med Call, information given. He states when a bed is available they will call. supervisor audit clerks and nurse notified.
[2019-10-16 08:02] VITALS: BP 128/82
--- NOTE | 2019-10-16 09:46 | NUR ---
Left a message with case management regarding patient needing pre authorization for transfer to [facility]. Awaiting response.
--- NOTE | 2019-10-16 10:30 | NUR ---
Discussed with nurse waiting on a bed availability at [facility]. Spoke to [facility] Med Call when a bed is available they will reach out.
--- NOTE | 2019-10-16 11:02 | NUR ---
Per impression results ET tube was advanced an additional 15cm. Patient tolerated well. See new orders.
[2019-10-16 12:00] VITALS: BP 130/57
--- NOTE | 2019-10-16 13:55 | NUR ---
PHYSICAL THERAPY Patient was resting supine in bed when approached for therapy and reports not feeling well this afternoon, voicing increased Nausea and 10/10 abdominal pain around colostomy port. Will continue per POC as able. Daniel Diez, PLASTIC TOP ASSEMBLER
--- NOTE | 2019-10-16 14:15 | NUR ---
OT NOTE Attempted to see pt this P.M. for OT session and upon arrival pt was misbahin rex bed. Pt had reports of 10/10 abdominal pain requesting to rest at this time. Will check back at a later time/date and continue with POC as able. CLINTON Goldberg/Mara
--- NOTE | 2019-10-16 15:47 | NUR ---
Internet service was down and locked out of patients Emar. 2mg Dilaudid was given at 1545 for c/o abdominal pain rated 9/10. Will monitor.
[2019-10-16 16:00] VITALS: BP 137/62
--- NOTE | 2019-10-16 16:30 | NUR ---
Dilaudid effective. Patient asleep with respirations >12.
--- NOTE | 2019-10-16 18:49 | NUR ---
Patient is requesting his pain medication early so it doesn't interfere with shift change. Educated patient that its not due until 1944 and I will let the oncoming nurse know to bring it when she rounds. Patient satisfied.
[2019-10-16 20:00] VITALS: BP 121/73
--- NOTE | 2019-10-16 20:08 | NUR ---
IN PT ROOM AT THIS TIME, PT IS SLEEPING IN HIS CHAIR.
--- NOTE | 2019-10-16 20:27 | NUR ---
PT STATES HE IS IN PAIN RATING IT A 10/10 IN HIS ABDOMEN AND IS REQUESTING HIS PAIN MEDICATIONS. IV DILAUDID GIVEN AT THIS TIME. CALL LIGHT IS WITHIN REACH WILL CONTINUE TO MONITOR
--- NOTE | 2019-10-16 22:31 | NUR ---
PT REQUESTING ZOFRAN FOR HIS STOMACH, IV ZOFRAN GIVEN AT THIS TIME. CALL LIGHT WITHIN REACH, WILL CONTINUE TO MONITOR
--- NOTE | 2019-10-16 23:27 | NUR ---
PT WANTING NG PLACEMENT CHECKED, SO AIR BOLUS FOR VERIFICATION OF PLACEMENT
[2019-10-17] VITALS: BP 123/65
--- NOTE | 2019-10-17 00:28 | NUR ---
PT REQUESTING DILAUDID. IV DILAUDID GIVEN AT THIS TIME FOR 10/10 ABDOMINAL PAIN. CALL LIGHT WITHIN REACH, WILL CONTINUE TO MONITOR
--- NOTE | 2019-10-17 01:31 | NUR ---
24 HR chart check completed.
--- NOTE | 2019-10-17 04:20 | NUR ---
PT REQUESTING PAIN MEDS, HYDROMORPHONE IV GIVEN AT THIS TIME.. CALL LIGHT WITHIN REACH WILL CONTINUE TO MONITOR
--- NOTE | 2019-10-17 04:34 | NUR ---
REPLACED NG CANISTER AT THIS TIME. THERE WAS 800 IN THE CANISTER, NEW ONE HANGING AND SUCTION WORKING
--- NOTE | 2019-10-17 06:41 | NUR ---
16 [place] NG TUBE INSERTED MUNA RT NOSTRIL, PT TOLERATED WELL. STAT XRAY CALLED FOR PLACEMENT
--- NOTE | 2019-10-17 07:40 | NUR ---
PHYSICAL THERAPY CO-SIGN I approve of the Physical Therapy notes written above. Cecilia Khan PT
[2019-10-17 08:00] VITALS: BP 125/60
--- NOTE | 2019-10-17 09:11 | NUR ---
CLARE KUMARI [id number] Please refer to the physician's history and physical for past medical history, comorbid conditions, and allergies. Diagnosis: CHF ACUTE ASTHMA EXB Jesus Score: 21,LOW OR NO RISK WOUND DESCRIPTIONS: Wound Number: 1 (REVISIT) Location of the wound: RIGHT LOWER EXTREMITY Type of wound: TRAUMATIC Thickness: Partial Size: 0.3cm X 0.4cm X 0.1cm Tunneling: NONE Undermining: NONE Sinus Tract: NONE Presence of Exudate: Serous Amount: Light Color: Red, [place] Odor: None Periwound Skin Appearance: Normal Wound edges: APPROXIMATED Pain (associated with wound): DENIED AT TIME OF ASSESSMENT Surface the patient is resting on: Isoflex SKIN PREVENTION RECOMMENDATION: 1. Pressure redistribution support surface as appropriate 2. Elevate heels 3. Remove boots/TEDS every shift and reapply 4. Head of bed 30 degrees as tolerated 5. Assess nutrition and hydration 6. Manage moisture 7. Avoid the use of containment devices while in bed 8. Use absorptive products on surfaces limit layers of linens on bed 9. Turn and reposition every 1-2 hours in bed and every 1 hour in chair as tolerated 10. Weight shifts every 15 minutes while up in chair 11. Offloading with pillows or device to keep heels elevated off bed 12. Monitor skin at least every shift 13. Inspect under medical devices twice a day WOUND TREATMENT RECOMMENDATIONS: CONTINUE CURRENT ORDERS.
[2019-10-17 12:00] VITALS: BP 125/73
--- NOTE | 2019-10-17 13:05 | NUR ---
PHYSICAL THERAPY Patient seen this pm 1:1 for therapy visit and was resting supine in bed upon therapist arrival. Patient identified by name / and presented with NG tube / IV treatment. Patient reports only mild abdominal pain since taking recent pain meds, however unable to rate on 0-10 scale. Patient also stated he is still feeling generalized weakness and transfers supine to sit EOB with MIN A. Patient tolerated 7-8 minutes static EOB sit without c/o, then performed several sit to stand transfers, CGA, with use of wh walker standing support for safety. Patient tolerated 1-2 minutes static stand each trial, SBA and returned to supine in bed with mild fatigue. Patient remained in bed with call light, tray table and cell phone within reach. Will continue per POC as tolerated, total treatment time 16 minutes. Daniel Diez, DRY FOLDER CLOTH
--- NOTE | 2019-10-17 13:17 | NUR ---
OT NOTE Pt was seen this P.M. 1:1 for 17 minute OT session. Upon arrival pt was supine in bed. Pt identified by name and and had complaints of abdominal pain which he did not rate on 0-10 pain scale. Pt transferred supine to sit EOB with SBA. While sitting EOB pt donned B socks with SBA. Pt then completed multiple sit to stand transfers from bed level with CGA and use of w/w for UE support. Challenged pt's static standing tolerance needed for increased I in self care tasks and functional transfers. Pt was able to tolerate aprox 5-7 minutes before sitting due to fatigue. Challenged pt's dynamic standing balance needed for increased I and enhanced safety in self care tasks. While weight shifting, crossing midline, and reaching over all planes pt was able to maintain F standing balance throughout. Pt then transferred sit to supine with SBA. There he was left with call light in hand, tray table in place, and phone in reach. Continue with POC as able. CLINTON Goldberg/Mara
--- NOTE | 2019-10-17 15:45 | NUR ---
OCCUPATIONAL THERAPY CO-SIGN I approve of the Occupational Therapy notes written above. DILLON ANGULO OTR/Mara
[2019-10-17 16:00] VITALS: BP 126/68
[2019-10-17 20:00] VITALS: BP 122/77
--- NOTE | 2019-10-17 20:20 | NUR ---
IN PT ROOM TO DO ASSESSMENT AND INFORM HIM THAT THERE ARE NO AMBULANCE VEHICLES THAT CAN TAKE HIM TONIGHT, BUT THAT AT 0730 TO CALL FOR A RIDE THEN. PT AGREES WITH THIS PLAN. PT STATES HE IS IN PAIN AND REQUESTING MEDICATION
--- NOTE | 2019-10-17 21:07 | NUR ---
PRN IV DILAUDID IS GIVEN AT THIS TIME PER PT REQUEST. PT RATES HIS PAIN A 10/10. CALL LIGHT IS WITHIN REACH, WILL CONTINUE TO MONITOR
[2019-10-18] VITALS: BP 130/69
--- NOTE | 2019-10-18 00:04 | NUR ---
PT WANTING HIS DILAUDID AT THIS TIME, BUT INFORMED HIM THAT IT IS TOO EARLY, WILL BRING IT TO HIM ONCE IT IS TIME
--- NOTE | 2019-10-18 01:00 | NUR ---
PT REQUESTING DILAUDID FOR ABDOMEN PAIN RATING IT A 10/10. PRN DILUADID IV IS GIVEN AT THIS TIME. CALL LIGHT WITHIN REACH, WILL CONTINUE TO MONITOR
--- NOTE | 2019-10-18 03:14 | NUR ---
24 HR chart check completed.
--- NOTE | 2019-10-18 03:44 | NUR ---
Patient sleeping. Respirations relaxed and easy. MATTS AMERICA CHENG
[2019-10-18 06:09] LABS: HEMATOCRIT 38.1 % (42.0-52.0); HEMOGLOBIN 10.9 g/dl (14.0-18.0); MEAN CORPUSCULAR HGB 19.2 pg (27.0-31.0); MEAN CORPUSCULAR HGB CONC 28.6 g/dl (33.0-37.0); PLATELET COUNT AUTOMATED 353 10*3/uL (130-400); RED BLOOD COUNT 5.69 10*6/uL (4.50-5.90); WHITE BLOOD COUNT 17.9 10*3/uL (4.8-10.8)
[2019-10-18 06:32] LABS: BUN 16 mg/dl (7-24); CHLORIDE 96 mmol/L (98-107); CREATININE 0.99 mg/dL (0.70-1.30); POTASSIUM 3.3 mmol/L (3.5-5.1); SODIUM 132 mmol/L (136-145)
[2019-10-18 07:13] LABS: ATYPICAL LYMPHS 1 % (0-0); OVALOCYTES FEW; PLATELET SUFFICIENCY NORMAL (NORMAL); POLYCHROMASIA SLIGHT; TOTAL CELLS COUNTED 100 #CELLS
[2019-10-18 07:14] LABS: MICROCYTOSIS MODERATE
[2019-10-18 08:00] VITALS: BP 128/68
[2019-10-18 12:00] VITALS: BP 122/74
--- NOTE | 2019-10-18 14:00 | NUR ---
PATIENT DISCHARGED TO [facility] VIA PRIVATE CAR. PATIENT DID NOT WANT TO WAIT ANY LONGER FOR AMBULANCE TRANSPORTATION. MEDIPORT ACCESS REMOVED. BUFFER INFLATED PAD DISCONTINUED. TRANSFER PACKET GIVEN TO PATIENT. PATIENT INSTRUCTED NOT TO EAT OR DRINK ANYTHING. CALLED [facility] TO GIVE REPORT. THEY ARE TO CALL BACK.
== END 2019-10-18 14:00 | disposition short-term general hospital (02) | DRG 291 ==
LOC: 4E 15:46
PROVIDERS: Internal Medicine; ADMIT Internal Medicine
PROC: 0D9670Z Drainage of Stomach with Drainage Device, Via Natural or Artificial Opening (ICD-10-PCS; principal; 2019-10-14)
DX: I11.0 Hypertensive heart disease with heart failure (principal); J96.01 Acute respiratory failure with hypoxia; D68.2 Hereditary deficiency of other clotting factors; K56.7 Ileus, unspecified; J44.1 Chronic obstructive pulmonary disease with (acute) exacerbation; N39.0 Urinary tract infection, site not specified; K56.600 Partial intestinal obstruction, unspecified as to cause; J45.51 Severe persistent asthma with (acute) exacerbation; I50.33 Acute on chronic diastolic (congestive) heart failure; K21.0 Gastro-esophageal reflux disease with esophagitis; F41.1 Generalized anxiety disorder; E66.9 Obesity, unspecified; G43.909 Migraine, unspecified, not intractable, without status migrainosus; R25.1 Tremor, unspecified; F51.01 Primary insomnia; E11.65 Type 2 diabetes mellitus with hyperglycemia; G89.4 Chronic pain syndrome; T38.0X5A Adverse effect of glucocorticoids and synthetic analogues, initial encounter; K43.5 Parastomal hernia without obstruction or gangrene; D50.9 Iron deficiency anemia, unspecified; G47.33 Obstructive sleep apnea (adult) (pediatric); E78.5 Hyperlipidemia, unspecified; Z93.3 Colostomy status; Z86.718 Personal history of other venous thrombosis and embolism; Y92.89 Other specified places as the place of occurrence of the external cause; Z68.37 Body mass index [BMI] 37.0-37.9, adult; Z85.038 Personal history of other malignant neoplasm of large intestine; Z79.4 Long term (current) use of insulin; F32.9 Major depressive disorder, single episode, unspecified; Z82.49 Family history of ischemic heart disease and other diseases of the circulatory system; Z80.8 Family history of malignant neoplasm of other organs or systems; Z88.1 Allergy status to other antibiotic agents; Z88.5 Allergy status to narcotic agent; Z88.8 Allergy status to other drugs, medicaments and biological substances; Z79.899 Other long term (current) drug therapy; Z79.01 Long term (current) use of anticoagulants

== ENCOUNTER 2019-11-01 14:48 | Emergency (ER) | payer OTHER ==
[~2019-11-01] VITALS: Ht 187.9 cm; Wt 134.7 kg
[~2019-11-01 14:48] MED LIST changes: +PYRIDIUM100 MG PO
[2019-11-01 14:52] VITALS: BP 136/67
[2019-11-01 15:47] LABS: BASO # 0.1 10*3/uL (0.0-0.1); BASO % 0.6 % (0.0-1.0); EOS # 0.2 10*3/uL (0.0-0.4); EOS % 1.9 % (1.0-4.0); HEMATOCRIT 28.9 % (42.0-52.0); HEMOGLOBIN 8.1 g/dl (14.0-18.0); LYMPH # 2.9 10*3/uL (1.3-4.4); LYMPH % 28.6 % (27.0-41.0); MEAN CELL VOLUME 70.5 fl (80.0-94.0); MEAN CORPUSCULAR HGB 19.8 pg (27.0-31.0); MEAN PLATELET VOLUME 8.5 fl (9.6-12.3); MONO # 0.8 10*3/uL (0.1-1.0); MONO % 8.2 % (3.0-9.0); NEUT # 5.9 10*3/uL (2.3-7.9); NEUT % 59.3 % (47.0-73.0); PLATELET COUNT AUTOMATED 435 10*3/uL (130-400); RED CELL DISTRI WIDTH 21.2 % (0-14.5)
[2019-11-01 16:01] LABS: ALBUMIN 2.6 gm/dl (3.1-4.5); ALKALINE PHOSPHATASE 135 U/L (45-117); BUN 9 mg/dl (7-24); CHLORIDE 101 mmol/L (98-107); CREATININE 0.92 mg/dL (0.70-1.30); POTASSIUM 3.9 mmol/L (3.5-5.1); SGOT/AST 12 IU/L (3-35); SGPT/ALT 20 U/L (12-78); SODIUM 135 mmol/L (136-145); TOTAL PROTEIN 6.5 gm/dL (6.4-8.2)
[2019-11-01 16:15] VITALS: BP 104/60
[2019-11-01 17:15] VITALS: BP 110/64
--- NOTE | 2019-11-01 17:15 | NUR ---
Transfer Out, from the Emergency Department - Stable This patient, CLARE KUMARI, 54, 69, [id number], [id number], was examined by the Emergency Department physician, WHIT Holland M.D. and efforts were made to stabilize the patient. The patient's condition is stable. The reason for transfer is need higher level of care . The Emergency physician has made the decision to transfer the patient out. Refer to the ED physician's dictation for the family/back-up physician notified. The attending physician has spoken to the accepting physician at the receiving facility, DR TADEO. Refer to the ED physician's dictation. The receiving facility has space and qualified personnel to care for the patient, and has agreed to accept the patient. Proper equipment and trained personnel have been arranged. The mode of transport is ground. The agency is [facility]. The Emergency physician has spoken to the transport staff re: patient's condition and needs during transport. Copies of the medical record have been forwarded to the receiving facility, including: - Emergency Department record: - name, address, hospital number, age, next of kin - presenting problem - history of injury, past medical history - treatment, medications & route, fluid type & volume - lab and xray findings, films - physical findings - vitals signs -- prehospital, emergency, pre-transfer - preliminary diagnosis - status/condition - emergency medical services record - consent for transfer - authorization for record release - name of any involed physicians -- responsive or not - name and address of referring physician - name of contact physician at receiving facility - name of accepting physician at receiving facility Nursing report has been given to CEDRIC CHILDRESS. Valuables include NONE. and were given to TRAVIS MONTES
== END 2019-11-01 17:15 | disposition short-term general hospital (02) ==
LOC: ED 14:48 → EDHOLD 15:17 → ED 15:17
PROVIDERS: Emergency Medicine
DX: T81.30XA Disruption of wound, unspecified, initial encounter (principal); J45.909 Unspecified asthma, uncomplicated; F41.9 Anxiety disorder, unspecified; I50.9 Heart failure, unspecified; J44.9 Chronic obstructive pulmonary disease, unspecified; K21.9 Gastro-esophageal reflux disease without esophagitis; I11.0 Hypertensive heart disease with heart failure; E78.5 Hyperlipidemia, unspecified; Z88.8 Allergy status to other drugs, medicaments and biological substances; Z88.5 Allergy status to narcotic agent; Z79.899 Other long term (current) drug therapy; Z79.4 Long term (current) use of insulin; Y83.8 Other surgical procedures as the cause of abnormal reaction of the patient, or of later complication, without mention of misadventure at the time of the procedure; Y92.89 Other specified places as the place of occurrence of the external cause

== ENCOUNTER 2019-12-01 16:58 | Emergency (ER) | payer OTHER ==
[~2019-12-01] VITALS: Ht 187.9 cm; Wt 136.1 kg
[2019-12-01 17:52] VITALS: BP 128/63
== END 2019-12-01 18:32 | disposition home or self-care (01) ==
LOC: ED 16:58
DX: J44.1 Chronic obstructive pulmonary disease with (acute) exacerbation (principal); E11.9 Type 2 diabetes mellitus without complications; I50.9 Heart failure, unspecified; F41.9 Anxiety disorder, unspecified; G43.909 Migraine, unspecified, not intractable, without status migrainosus; Z88.5 Allergy status to narcotic agent; Z88.8 Allergy status to other drugs, medicaments and biological substances; Z79.899 Other long term (current) drug therapy; Z79.4 Long term (current) use of insulin

== ENCOUNTER 2020-03-24 22:24 | Inpatient (IN) | payer OTHER ==
[~2020-03-24] VITALS: Ht 187.9 cm; Wt 140.2 kg
[2020-03-24 23:00] VITALS: BP 96/52
[2020-03-24 23:21] LABS: BASO % 0.2 % (0.0-1.0); EOS % 0.2 % (1.0-4.0); HEMATOCRIT 26.2 % (42.0-52.0); LYMPH # 1.5 10*3/uL (1.3-4.4); LYMPH % 17.7 % (27.0-41.0); MEAN CELL VOLUME 62.2 fl (80.0-94.0); MEAN CORPUSCULAR HGB 17.3 pg (27.0-31.0); MEAN CORPUSCULAR HGB CONC 27.9 g/dl (33.0-37.0); MEAN PLATELET VOLUME 8.7 fl (9.6-12.3); MONO # 1.2 10*3/uL (0.1-1.0); MONO % 13.8 % (3.0-9.0); NEUT # 5.8 10*3/uL (2.3-7.9); NEUT % 67.3 % (47.0-73.0); PLATELET COUNT AUTOMATED 274 10*3/uL (130-400); RED BLOOD COUNT 4.21 10*6/uL (4.50-5.90); RED CELL DISTRI WIDTH 20.2 % (0-14.5); WHITE BLOOD COUNT 8.6 10*3/uL (4.8-10.8)
[2020-03-24 23:35] LABS: ALBUMIN 2.6 gm/dl (3.1-4.5); ALKALINE PHOSPHATASE 145 U/L (45-117); BUN 20 mg/dl (7-24); CHLORIDE 99 mmol/L (98-107); CREATININE 1.25 mg/dL (0.70-1.30); POTASSIUM 4.1 mmol/L (3.5-5.1); SGOT/AST 23 IU/L (3-35); SGPT/ALT 39 U/L (12-78); SODIUM 131 mmol/L (136-145); TOTAL PROTEIN 6.8 gm/dL (6.4-8.2)
[2020-03-24 23:50] VITALS: BP 96/48
[2020-03-25] VITALS (12 sets, daily range): BP systolic 95–138; BP diastolic 49–75
[2020-03-25 02:57] LABS: BILIRUBIN NEGATIVE (NEGATIVE); CLARITY SL CLOUDY (CLEAR); COLOR YELLOW (YELLOW); GLUCOSE NEGATIVE (NEGATIVE); KETONE NEGATIVE (NEGATIVE); SPECIFIC GRAVITY 1.015 (1.005-1.030)
[2020-03-25 02:58] LABS: BLOOD 3+ (NEGATIVE); LEUKO ESTERASE 1+ (NEGATIVE); NITRITE NEGATIVE (NEGATIVE); UROBILINOGEN 0.2 E.U./dl (0.2-1.0)
[2020-03-25 03:00] LABS: BACTERIA 1+; RBC 21-30 rbc/hpf (0-2); YEAST 1+
[2020-03-25] MEDS ORDERED: ZITHROMAX500 MG PO (09:18)
[2020-03-25] MEDS ORDERED: SENOKOT8.6 MG PO (09:20)
[2020-03-26 07:10] LABS: BASO % 0.4 % (0.0-1.0); EOS % 0.3 % (1.0-4.0); HEMATOCRIT 29.8 % (42.0-52.0); LYMPH # 2.6 10*3/uL (1.3-4.4); LYMPH % 26.1 % (27.0-41.0); MEAN CELL VOLUME 62.1 fl (80.0-94.0); MEAN CORPUSCULAR HGB 17.3 pg (27.0-31.0); MEAN CORPUSCULAR HGB CONC 27.9 g/dl (33.0-37.0); MONO # 1.3 10*3/uL (0.1-1.0); MONO % 13.6 % (3.0-9.0); NEUT # 5.7 10*3/uL (2.3-7.9); NEUT % 58.6 % (47.0-73.0); PLATELET COUNT AUTOMATED 310 10*3/uL (130-400); RED CELL DISTRI WIDTH 20.8 % (0-14.5); WHITE BLOOD COUNT 9.8 10*3/uL (4.8-10.8)
[2020-03-26 12:00] VITALS: BP 139/85
[2020-03-26 16:00] VITALS: BP 144/63
[2020-03-26 20:00] VITALS: BP 135/77
[2020-03-27] VITALS: BP 145/71
[2020-03-27 12:00] VITALS: BP 130/68
[2020-03-27 16:00] VITALS: BP 125/74
[2020-03-27 20:00] VITALS: BP 128/74
[2020-03-28] VITALS: BP 129/65
[2020-03-28 06:29] LABS: BASO # 0.1 10*3/uL (0.0-0.1); BASO % 0.4 % (0.0-1.0); EOS # 0.2 10*3/uL (0.0-0.4); EOS % 1.9 % (1.0-4.0); HEMATOCRIT 29.2 % (42.0-52.0); LYMPH # 3.4 10*3/uL (1.3-4.4); LYMPH % 30.2 % (27.0-41.0); MEAN CELL VOLUME 63.3 fl (80.0-94.0); MEAN CORPUSCULAR HGB 17.4 pg (27.0-31.0); MEAN CORPUSCULAR HGB CONC 27.4 g/dl (33.0-37.0); MEAN PLATELET VOLUME 9.9 fl (9.6-12.3); MONO # 0.9 10*3/uL (0.1-1.0); MONO % 7.5 % (3.0-9.0); NEUT # 6.5 10*3/uL (2.3-7.9); RED BLOOD COUNT 4.61 10*6/uL (4.50-5.90); RED CELL DISTRI WIDTH 21.1 % (0-14.5); WHITE BLOOD COUNT 11.3 10*3/uL (4.8-10.8)
[2020-03-28 06:30] LABS: PLATELET COUNT AUTOMATED 422 10*3/uL (130-400)
[2020-03-28 06:47] LABS: BUN 10 mg/dl (7-24); CREATININE 1.02 mg/dL (0.70-1.30)
[2020-03-28 08:00] VITALS: BP 130/78; BP 134/71
[2020-03-28 12:00] VITALS: BP 130/71
[2020-03-28 16:00] VITALS: BP 134/73
[2020-03-28 20:00] VITALS: BP 154/75
[2020-03-29] VITALS (8 sets, daily range): BP systolic 118–149; BP diastolic 69–83
[2020-03-30] VITALS: BP 148/62
[2020-03-30 08:00] VITALS: BP 138/72
[2020-03-30 12:00] VITALS: BP 141/71
[2020-03-30 16:00] VITALS: BP 103/49; BP 143/73
[2020-03-30 20:00] VITALS: BP 122/68
[2020-03-31] VITALS: BP 112/57
[2020-03-31 08:00] VITALS: BP 162/76
[2020-03-31] MEDS ORDERED: NAFCILLIN2 GM IV (08:16)
[2020-03-31 12:00] VITALS: BP 114/70
[2020-03-31 16:00] VITALS: BP 133/66
[2020-03-31 20:00] VITALS: BP 128/66
[2020-04-01] VITALS: BP 122/72
[2020-04-01 08:00] VITALS: BP 134/68
[2020-04-01 12:00] VITALS: BP 108/63
== END 2020-04-01 16:58 | disposition home or self-care (01) | DRG 871 ==
LOC: ED 22:24 → 4E 03-25 00:44 → EDHOLD 03-25 00:44 → 4E 03-25 07:34
PROVIDERS: Emergency Medicine; ADMIT Internal Medicine
PROC: B24BZZ4 Ultrasonography of Heart with Aorta, Transesophageal (ICD-10-PCS; 2020-03-29)
PROC: 0JPT0WZ Removal of Totally Implantable Vascular Access Device from Trunk Subcutaneous Tissue and Fascia, Open Approach (ICD-10-PCS; 2020-03-29)
PROC: 02PY33Z Removal of Infusion Device from Great Vessel, Percutaneous Approach (ICD-10-PCS; 2020-03-29)
PROC: 02HV33Z Insertion of Infusion Device into Superior Vena Cava, Percutaneous Approach (ICD-10-PCS; principal; 2020-03-31)
DX: A41.02 Sepsis due to Methicillin resistant Staphylococcus aureus (principal); I33.0 Acute and subacute infective endocarditis; E43 Unspecified severe protein-calorie malnutrition; J15.9 Unspecified bacterial pneumonia; F33.1 Major depressive disorder, recurrent, moderate; D68.51 Activated protein C resistance; N39.0 Urinary tract infection, site not specified; C18.9 Malignant neoplasm of colon, unspecified; I50.22 Chronic systolic (congestive) heart failure; J44.1 Chronic obstructive pulmonary disease with (acute) exacerbation; J44.0 Chronic obstructive pulmonary disease with (acute) lower respiratory infection; T82.514A Breakdown (mechanical) of infusion catheter, initial encounter; I76 Septic arterial embolism; Y83.8 Other surgical procedures as the cause of abnormal reaction of the patient, or of later complication, without mention of misadventure at the time of the procedure; Y92.89 Other specified places as the place of occurrence of the external cause; R65.20 Severe sepsis without septic shock; B95.61 Methicillin susceptible Staphylococcus aureus infection as the cause of diseases classified elsewhere; N40.1 Benign prostatic hyperplasia with lower urinary tract symptoms; R33.8 Other retention of urine; G25.81 Restless legs syndrome; F41.1 Generalized anxiety disorder; K59.09 Other constipation; M54.5 Low back pain; E11.42 Type 2 diabetes mellitus with diabetic polyneuropathy; K21.9 Gastro-esophageal reflux disease without esophagitis; G47.33 Obstructive sleep apnea (adult) (pediatric); G89.4 Chronic pain syndrome; E66.01 Morbid (severe) obesity due to excess calories; I11.0 Hypertensive heart disease with heart failure; G43.909 Migraine, unspecified, not intractable, without status migrainosus; Z86.718 Personal history of other venous thrombosis and embolism; Z95.9 Presence of cardiac and vascular implant and graft, unspecified; Z93.3 Colostomy status; Z90.49 Acquired absence of other specified parts of digestive tract; Z68.39 Body mass index [BMI] 39.0-39.9, adult; Z88.1 Allergy status to other antibiotic agents; Z88.8 Allergy status to other drugs, medicaments and biological substances; Z88.5 Allergy status to narcotic agent; Z79.4 Long term (current) use of insulin; Z79.899 Other long term (current) drug therapy; Z79.01 Long term (current) use of anticoagulants; Z83.6 Family history of other diseases of the respiratory system; Z82.49 Family history of ischemic heart disease and other diseases of the circulatory system; Z80.49 Family history of malignant neoplasm of other genital organs

== ENCOUNTER → 2020-04-05 | Outpatient (CLI) | payer OTHER ==
[~2020-04-05] MED LIST changes: +NAFCILLIN2 GM IV; +SENOKOT8.6 MG PO
[2020-04-05 16:11] LABS: BASO # 0.1 10*3/uL (0.0-0.1); BASO % 0.6 % (0.0-1.0); EOS # 0.2 10*3/uL (0.0-0.4); EOS % 1.7 % (1.0-4.0); HEMATOCRIT 32.4 % (42.0-52.0); LYMPH # 3.8 10*3/uL (1.3-4.4); MEAN CELL VOLUME 63.9 fl (80.0-94.0); MEAN CORPUSCULAR HGB 17.4 pg (27.0-31.0); MEAN CORPUSCULAR HGB CONC 27.2 g/dl (33.0-37.0); MEAN PLATELET VOLUME 8.7 fl (9.6-12.3); MONO # 1.1 10*3/uL (0.1-1.0); MONO % 9.9 % (3.0-9.0); NEUT # 5.9 10*3/uL (2.3-7.9); PLATELET COUNT AUTOMATED 693 10*3/uL (130-400); RED BLOOD COUNT 5.07 10*6/uL (4.50-5.90); RED CELL DISTRI WIDTH 21.6 % (0-14.5); WHITE BLOOD COUNT 11.1 10*3/uL (4.8-10.8)
[2020-04-05 16:25] LABS: ALBUMIN 3.4 gm/dl (3.1-4.5); ALKALINE PHOSPHATASE 121 U/L (45-117); BUN 17 mg/dl (7-24); CHLORIDE 98 mmol/L (98-107); CREATININE 1.25 mg/dL (0.70-1.30); POTASSIUM 4.2 mmol/L (3.5-5.1); SGOT/AST 10 IU/L (3-35); SGPT/ALT 23 U/L (12-78); SODIUM 130 mmol/L (136-145); TOTAL PROTEIN 8.4 gm/dL (6.4-8.2)
== END | disposition home or self-care (01) ==
LOC: LAB 15:48
PROVIDERS: Internal Medicine
DX: I33.0 Acute and subacute infective endocarditis (principal); R07.89 Other chest pain; R78.81 Bacteremia

== ENCOUNTER → 2020-04-08 | Outpatient (CLI) | payer OTHER ==
[~2020-04-08] MED LIST changes: +BUSPIRONE HCL30 MG PO; +DUTASTERIDE0.5 MG PO; +HUMALOG100 UNIT/2 SC; +LANTUS SOL100 UNIT/1 SC; +VISTARIL25 M2 PO; +ZANAFLEX4 M1 PO
[2020-04-08 10:00] LABS: BASO # 0.1 10*3/uL (0.0-0.1); BASO % 1.1 % (0.0-1.0); EOS # 0.2 10*3/uL (0.0-0.4); EOS % 2.4 % (1.0-4.0); HEMATOCRIT 31.6 % (42.0-52.0); LYMPH # 2.6 10*3/uL (1.3-4.4); MEAN CELL VOLUME 65.6 fl (80.0-94.0); MEAN CORPUSCULAR HGB 17.4 pg (27.0-31.0); MEAN CORPUSCULAR HGB CONC 26.6 g/dl (33.0-37.0); MEAN PLATELET VOLUME 8.5 fl (9.6-12.3); MONO # 0.9 10*3/uL (0.1-1.0); MONO % 10.5 % (3.0-9.0); NEUT # 4.6 10*3/uL (2.3-7.9); NEUT % 54.5 % (47.0-73.0); PLATELET COUNT AUTOMATED 531 10*3/uL (130-400); RED BLOOD COUNT 4.82 10*6/uL (4.50-5.90); RED CELL DISTRI WIDTH 21.6 % (0-14.5); WHITE BLOOD COUNT 8.4 10*3/uL (4.8-10.8)
[2020-04-08 10:34] LABS: ALBUMIN 3.4 gm/dl (3.1-4.5); ALKALINE PHOSPHATASE 115 U/L (45-117); BUN 17 mg/dl (7-24); CHLORIDE 99 mmol/L (98-107); CREATININE 1.13 mg/dL (0.70-1.30); POTASSIUM 4.3 mmol/L (3.5-5.1); SGOT/AST 12 IU/L (3-35); SGPT/ALT 23 U/L (12-78); SODIUM 133 mmol/L (136-145)
== END | disposition home or self-care (01) ==
LOC: LAB 03:41
PROVIDERS: Internal Medicine
DX: I33.0 Acute and subacute infective endocarditis (principal); R07.89 Other chest pain; R78.81 Bacteremia; R73.03 Prediabetes

== ENCOUNTER → 2020-04-15 | Day surgery (SDC) | payer OTHER ==
--- NOTE | 2020-04-15 10:06 | NUR ---
1000- PICC LINE DRESSING CHANGED USING STERILE TECHNIQUE. CAPS CHANGED, BLOOD DRAWN ORDERED AND PORT FLUSHED PER POLICY. DISCHARGED AMBULATORY. BLOOD TO LAB VIA TUBE TRANSPORT SYSTEM.
[2020-04-15 10:15] LABS: BASO # 0.1 10*3/uL (0.0-0.1); BASO % 0.8 % (0.0-1.0); EOS # 0.3 10*3/uL (0.0-0.4); EOS % 3.3 % (1.0-4.0); HEMATOCRIT 30.5 % (42.0-52.0); LYMPH # 2.8 10*3/uL (1.3-4.4); LYMPH % 36.2 % (27.0-41.0); MEAN CELL VOLUME 65.5 fl (80.0-94.0); MEAN CORPUSCULAR HGB 17.6 pg (27.0-31.0); MEAN CORPUSCULAR HGB CONC 26.9 g/dl (33.0-37.0); MEAN PLATELET VOLUME 9.3 fl (9.6-12.3); MONO % 12.9 % (3.0-9.0); NEUT # 3.5 10*3/uL (2.3-7.9); PLATELET COUNT AUTOMATED 357 10*3/uL (130-400); RED BLOOD COUNT 4.66 10*6/uL (4.50-5.90); RED CELL DISTRI WIDTH 21.8 % (0-14.5); WHITE BLOOD COUNT 7.7 10*3/uL (4.8-10.8)
[2020-04-15 10:49] LABS: ALBUMIN 3.4 gm/dl (3.1-4.5); ALKALINE PHOSPHATASE 103 U/L (45-117); BUN 15 mg/dl (7-24); CHLORIDE 102 mmol/L (98-107); CREATININE 1.02 mg/dL (0.70-1.30); POTASSIUM 4.1 mmol/L (3.5-5.1); SGOT/AST 13 IU/L (3-35); SGPT/ALT 22 U/L (12-78); SODIUM 135 mmol/L (136-145); TOTAL PROTEIN 7.6 gm/dL (6.4-8.2)
== END | disposition home or self-care (01) ==
LOC: SDC 09:00
PROVIDERS: Internal Medicine
DX: Z45.2 Encounter for adjustment and management of vascular access device (principal); I33.0 Acute and subacute infective endocarditis; R78.81 Bacteremia; R07.89 Other chest pain

== ENCOUNTER → 2020-04-19 | Outpatient (CLI) | payer OTHER ==
--- NOTE | 2020-04-19 10:18 | NUR ---
1010- BLOOD DRAWN FROM PICC LINE PER POLICY AND SENT TO LAB VIA TUBE TRANSPORT SYSTEM. FLUSHED PER POLICY AND PT. DISCHARGED AMBULTORY.
[2020-04-19 11:01] LABS: BASO # 0.1 10*3/uL (0.0-0.1); BASO % 0.8 % (0.0-1.0); EOS # 0.4 10*3/uL (0.0-0.4); EOS % 4.2 % (1.0-4.0); HEMATOCRIT 31.9 % (42.0-52.0); LYMPH # 2.5 10*3/uL (1.3-4.4); LYMPH % 29.8 % (27.0-41.0); MEAN CELL VOLUME 65.8 fl (80.0-94.0); MEAN CORPUSCULAR HGB 17.7 pg (27.0-31.0); MEAN PLATELET VOLUME 9.6 fl (9.6-12.3); MONO % 11.5 % (3.0-9.0); NEUT # 4.4 10*3/uL (2.3-7.9); NEUT % 52.9 % (47.0-73.0); PLATELET COUNT AUTOMATED 335 10*3/uL (130-400); RED BLOOD COUNT 4.85 10*6/uL (4.50-5.90); RED CELL DISTRI WIDTH 22.3 % (0-14.5); WHITE BLOOD COUNT 8.4 10*3/uL (4.8-10.8)
[2020-04-19 11:15] LABS: ALBUMIN 3.5 gm/dl (3.1-4.5); ALKALINE PHOSPHATASE 98 U/L (45-117); BUN 14 mg/dl (7-24); CHLORIDE 101 mmol/L (98-107); CREATININE 0.91 mg/dL (0.70-1.30); POTASSIUM 4.2 mmol/L (3.5-5.1); SGOT/AST 10 IU/L (3-35); SGPT/ALT 20 U/L (12-78); SODIUM 135 mmol/L (136-145); TOTAL PROTEIN 7.6 gm/dL (6.4-8.2)
[2020-04-20 08:08] LABS: IMMUNOGLOBULIN M, QNT 40 mg/dL (20-172)
[2020-04-20 16:07] LABS: IGG SUBCLASS 1 239 mg/dL (248-810); IGG SUBCLASS 2 540 mg/dL (130-555); IGG SUBCLASS 3 45 mg/dL (15-102); IGG SUBCLASS 4 30 mg/dL (2-96); IMMUNOGLOBULIN G, QNT 919 mg/dL (603-1613)
[2020-04-21 13:06] LABS: IMMUNOGLOBULIN IgE 6 IU/mL (6-495)
== END | disposition home or self-care (01) ==
LOC: LAB 00:09
PROVIDERS: ATTEND Internal Medicine
DX: Z45.2 Encounter for adjustment and management of vascular access device (principal); I33.0 Acute and subacute infective endocarditis; R07.89 Other chest pain; R78.81 Bacteremia

== ENCOUNTER → 2020-04-22 | Day surgery (SDC) | payer OTHER ==
[2020-04-22 10:16] LABS: BASO # 0.1 10*3/uL (0.0-0.1); BASO % 1.1 % (0.0-1.0); EOS # 0.3 10*3/uL (0.0-0.4); EOS % 3.7 % (1.0-4.0); HEMATOCRIT 31.7 % (42.0-52.0); LYMPH # 2.4 10*3/uL (1.3-4.4); LYMPH % 30.1 % (27.0-41.0); MEAN CELL VOLUME 66.2 fl (80.0-94.0); MEAN CORPUSCULAR HGB CONC 27.1 g/dl (33.0-37.0); MEAN PLATELET VOLUME 9.3 fl (9.6-12.3); MONO # 0.9 10*3/uL (0.1-1.0); MONO % 10.5 % (3.0-9.0); NEUT # 4.3 10*3/uL (2.3-7.9); NEUT % 53.7 % (47.0-73.0); PLATELET COUNT AUTOMATED 368 10*3/uL (130-400); RED BLOOD COUNT 4.79 10*6/uL (4.50-5.90); RED CELL DISTRI WIDTH 22.5 % (0-14.5); WHITE BLOOD COUNT 8.1 10*3/uL (4.8-10.8)
--- NOTE | 2020-04-22 10:17 | NUR ---
PT HERE FOR LAB DRAW AND PICC LINE DRESSING CHANGE PER POLICY. LABS SENT TO MAIN LAB. HEPARIN FLUSH PER POLICY. STERILE DRESSING CHANGE COMPLETE. PATIENT TOLERATED WELL. ANH CEJA RN
[2020-04-22 10:55] LABS: ALBUMIN 3.5 gm/dl (3.1-4.5); ALKALINE PHOSPHATASE 108 U/L (45-117); BUN 13 mg/dl (7-24); CHLORIDE 100 mmol/L (98-107); CREATININE 1.07 mg/dL (0.70-1.30); POTASSIUM 4.2 mmol/L (3.5-5.1); SGOT/AST 18 IU/L (3-35); SGPT/ALT 21 U/L (12-78); SODIUM 135 mmol/L (136-145)
== END | disposition home or self-care (01) ==
LOC: SDC 00:42
PROVIDERS: ATTEND Internal Medicine
DX: Z45.2 Encounter for adjustment and management of vascular access device (principal); I33.0 Acute and subacute infective endocarditis; R07.89 Other chest pain; R78.81 Bacteremia

== ENCOUNTER → 2020-04-26 | Outpatient (CLI) | payer OTHER ==
[~2020-04-26] MED LIST changes: +DUONEB INH
--- NOTE | 2020-04-26 12:48 | NUR ---
1230- LABS DRAWN FROM PICC LINE AFTER WASTING 10CC OF BLOOD. FLUSHED PER POLICY AND BLOOD SENT TO LAB VIA TUBE TRANSPORT SYSTEM. SITE IS ASYMPTOMATIC. DISCHARGED AMBULATORY.
[2020-04-26 13:09] LABS: BASO # 0.1 10*3/uL (0.0-0.1); BASO % 0.8 % (0.0-1.0); EOS # 0.3 10*3/uL (0.0-0.4); EOS % 3.1 % (1.0-4.0); HEMATOCRIT 32.4 % (42.0-52.0); LYMPH # 2.4 10*3/uL (1.3-4.4); LYMPH % 27.7 % (27.0-41.0); MEAN CELL VOLUME 66.5 fl (80.0-94.0); MEAN CORPUSCULAR HGB 17.9 pg (27.0-31.0); MEAN CORPUSCULAR HGB CONC 26.9 g/dl (33.0-37.0); MEAN PLATELET VOLUME 9.4 fl (9.6-12.3); MONO # 0.8 10*3/uL (0.1-1.0); MONO % 8.8 % (3.0-9.0); NEUT # 5.2 10*3/uL (2.3-7.9); PLATELET COUNT AUTOMATED 401 10*3/uL (130-400); RED BLOOD COUNT 4.87 10*6/uL (4.50-5.90); RED CELL DISTRI WIDTH 22.7 % (0-14.5); WHITE BLOOD COUNT 8.8 10*3/uL (4.8-10.8)
[2020-04-26 13:25] LABS: ALBUMIN 3.6 gm/dl (3.1-4.5); ALKALINE PHOSPHATASE 110 U/L (45-117); BUN 11 mg/dl (7-24); CHLORIDE 99 mmol/L (98-107); CREATININE 1.06 mg/dL (0.70-1.30); POTASSIUM 3.9 mmol/L (3.5-5.1); SGOT/AST 9 IU/L (3-35); SGPT/ALT 17 U/L (12-78); SODIUM 134 mmol/L (136-145); TOTAL PROTEIN 8.1 gm/dL (6.4-8.2)
== END | disposition home or self-care (01) ==
LOC: LAB 00:43
PROVIDERS: ATTEND Internal Medicine
DX: Z45.2 Encounter for adjustment and management of vascular access device (principal); I33.0 Acute and subacute infective endocarditis; R07.89 Other chest pain; R78.81 Bacteremia

== ENCOUNTER 2020-04-29 13:49 | Observation (INO) | payer OTHER ==
[~2020-04-29] VITALS: Ht 187.9 cm; Wt 149.3 kg
[~2020-04-29 13:49] MED LIST changes: -DUONEB INH
[2020-04-29 13:56] VITALS: BP 139/77
[2020-04-29 14:33] LABS: BASO # 0.1 10*3/uL (0.0-0.1); BASO % 0.6 % (0.0-1.0); EOS # 0.2 10*3/uL (0.0-0.4); EOS % 2.1 % (1.0-4.0); HEMATOCRIT 30.5 % (42.0-52.0); LYMPH # 2.3 10*3/uL (1.3-4.4); LYMPH % 24.2 % (27.0-41.0); MEAN CELL VOLUME 65.9 fl (80.0-94.0); MEAN CORPUSCULAR HGB 18.1 pg (27.0-31.0); MEAN CORPUSCULAR HGB CONC 27.5 g/dl (33.0-37.0); MEAN PLATELET VOLUME 8.9 fl (9.6-12.3); MONO # 0.8 10*3/uL (0.1-1.0); NEUT % 64.7 % (47.0-73.0); PLATELET COUNT AUTOMATED 373 10*3/uL (130-400); RED BLOOD COUNT 4.63 10*6/uL (4.50-5.90); RED CELL DISTRI WIDTH 22.4 % (0-14.5); WHITE BLOOD COUNT 9.3 10*3/uL (4.8-10.8)
[2020-04-29 14:44] LABS: ACT PARTIAL THROMBO TIME 26.3 SECONDS (20.0-32.1); INTERNATIONAL NORM RATIO 0.9 (2.0-3.5)
[2020-04-29 14:57] VITALS: BP 110/60
[2020-04-29 14:59] LABS: ALBUMIN 3.4 gm/dl (3.1-4.5); ALKALINE PHOSPHATASE 103 U/L (45-117); BUN 12 mg/dl (7-24); CHLORIDE 100 mmol/L (98-107); CREATININE 1.12 mg/dL (0.70-1.30); POTASSIUM 3.7 mmol/L (3.5-5.1); SGOT/AST 12 IU/L (3-35); SGPT/ALT 21 U/L (12-78); SODIUM 135 mmol/L (136-145); TOTAL PROTEIN 7.6 gm/dL (6.4-8.2)
[2020-04-29 15:00] LABS: TROPONIN I < 0.015 ng/ml (<0.045)
[2020-04-29 16:44] VITALS: BP 107/68
[2020-04-29] MEDS ORDERED: DILAUDID4 MG PO (19:04)
[2020-04-29] MEDS ORDERED: DUONEB INH (19:11)
[2020-04-29 20:00] VITALS: BP 111/55
[2020-04-30] VITALS: BP 141/55
[2020-04-30 06:01] LABS: BASO % 0.5 % (0.0-1.0); EOS # 0.2 10*3/uL (0.0-0.4); EOS % 2.9 % (1.0-4.0); HEMATOCRIT 29.8 % (42.0-52.0); LYMPH # 3.2 10*3/uL (1.3-4.4); LYMPH % 38.7 % (27.0-41.0); MEAN CORPUSCULAR HGB 18.7 pg (27.0-31.0); MEAN CORPUSCULAR HGB CONC 27.5 g/dl (33.0-37.0); MEAN PLATELET VOLUME 9.2 fl (9.6-12.3); MONO # 0.9 10*3/uL (0.1-1.0); MONO % 10.8 % (3.0-9.0); NEUT # 3.8 10*3/uL (2.3-7.9); NEUT % 46.6 % (47.0-73.0); PLATELET COUNT AUTOMATED 372 10*3/uL (130-400); RED BLOOD COUNT 4.38 10*6/uL (4.50-5.90); RED CELL DISTRI WIDTH 22.5 % (0-14.5); WHITE BLOOD COUNT 8.2 10*3/uL (4.8-10.8)
[2020-04-30 08:00] VITALS: BP 155/83
[2020-04-30 12:00] VITALS: BP 131/76
[2020-04-30 16:00] VITALS: BP 100/50
== END 2020-04-30 17:09 | disposition home or self-care (01) ==
LOC: ED 13:49 → EDHOLD 16:50 → 4E 17:54
PROVIDERS: Emergency Medicine; ADMIT Internal Medicine; ATTEND Internal Medicine
DX: L03.114 Cellulitis of left upper limb (principal); E66.01 Morbid (severe) obesity due to excess calories; Z68.39 Body mass index [BMI] 39.0-39.9, adult; J44.9 Chronic obstructive pulmonary disease, unspecified; K59.00 Constipation, unspecified; G43.709 Chronic migraine without aura, not intractable, without status migrainosus; E11.9 Type 2 diabetes mellitus without complications; F41.0 Panic disorder [episodic paroxysmal anxiety]; G89.29 Other chronic pain; G25.81 Restless legs syndrome

== ENCOUNTER → 2020-04-29 | Day surgery (SDC) | payer OTHER ==
[2020-04-29 10:38] LABS: BASO # 0.1 10*3/uL (0.0-0.1); BASO % 0.6 % (0.0-1.0); EOS # 0.2 10*3/uL (0.0-0.4); EOS % 2.6 % (1.0-4.0); HEMATOCRIT 30.3 % (42.0-52.0); LYMPH # 2.2 10*3/uL (1.3-4.4); LYMPH % 27.5 % (27.0-41.0); MEAN CELL VOLUME 68.4 fl (80.0-94.0); MEAN CORPUSCULAR HGB 18.1 pg (27.0-31.0); MEAN CORPUSCULAR HGB CONC 26.4 g/dl (33.0-37.0); MEAN PLATELET VOLUME 9.3 fl (9.6-12.3); MONO # 0.8 10*3/uL (0.1-1.0); MONO % 9.8 % (3.0-9.0); NEUT # 4.7 10*3/uL (2.3-7.9); NEUT % 58.8 % (47.0-73.0); PLATELET COUNT AUTOMATED 353 10*3/uL (130-400); RED BLOOD COUNT 4.43 10*6/uL (4.50-5.90); RED CELL DISTRI WIDTH 22.6 % (0-14.5)
[2020-04-29 11:07] LABS: ALBUMIN 3.3 gm/dl (3.1-4.5); ALKALINE PHOSPHATASE 98 U/L (45-117); BUN 12 mg/dl (7-24); CHLORIDE 100 mmol/L (98-107); POTASSIUM 3.8 mmol/L (3.5-5.1); SGOT/AST 10 IU/L (3-35); SGPT/ALT 19 U/L (12-78); SODIUM 135 mmol/L (136-145); TOTAL PROTEIN 7.4 gm/dL (6.4-8.2)
== END | disposition home or self-care (01) ==
LOC: SDC 03:27
PROVIDERS: ATTEND Internal Medicine
DX: Z45.2 Encounter for adjustment and management of vascular access device (principal); I33.0 Acute and subacute infective endocarditis; R78.81 Bacteremia; R07.89 Other chest pain; Z88.5 Allergy status to narcotic agent; Z88.8 Allergy status to other drugs, medicaments and biological substances

== ENCOUNTER → 2020-05-03 | Outpatient (CLI) | payer OTHER ==
[~2020-05-03] MED LIST changes: +DUONEB INH
[2020-05-03 10:12] LABS: BASO # 0.1 10*3/uL (0.0-0.1); BASO % 0.8 % (0.0-1.0); EOS # 0.2 10*3/uL (0.0-0.4); EOS % 3.2 % (1.0-4.0); HEMATOCRIT 31.3 % (42.0-52.0); LYMPH # 2.4 10*3/uL (1.3-4.4); LYMPH % 30.9 % (27.0-41.0); MEAN CORPUSCULAR HGB 18.3 pg (27.0-31.0); MEAN CORPUSCULAR HGB CONC 26.8 g/dl (33.0-37.0); MONO # 0.8 10*3/uL (0.1-1.0); MONO % 10.8 % (3.0-9.0); NEUT # 4.1 10*3/uL (2.3-7.9); NEUT % 53.8 % (47.0-73.0); PLATELET COUNT AUTOMATED 399 10*3/uL (130-400); RED CELL DISTRI WIDTH 22.5 % (0-14.5); WHITE BLOOD COUNT 7.6 10*3/uL (4.8-10.8)
[2020-05-03 10:46] LABS: ALBUMIN 3.5 gm/dl (3.1-4.5); ALKALINE PHOSPHATASE 115 U/L (45-117); BUN 16 mg/dl (7-24); CHLORIDE 101 mmol/L (98-107); CREATININE 1.07 mg/dL (0.70-1.30); POTASSIUM 3.8 mmol/L (3.5-5.1); SGOT/AST 11 IU/L (3-35); SGPT/ALT 20 U/L (12-78); SODIUM 132 mmol/L (136-145); TOTAL PROTEIN 7.9 gm/dL (6.4-8.2)
== END | disposition home or self-care (01) ==
LOC: LAB 09:41
PROVIDERS: ATTEND Internal Medicine
DX: I33.0 Acute and subacute infective endocarditis (principal); R07.89 Other chest pain; R78.81 Bacteremia

== ENCOUNTER → 2020-05-06 | Day surgery (SDC) | payer OTHER ==
--- NOTE | 2020-05-06 11:00 | NUR ---
PT HERE FOR LAB DRAW AND MIDLINE DRESSING CHANGE. SITE ASYMPTOMATIC. STERILE DRESSING APPLIED WITH CAP CHANGE. TOLERATED WELL. LABS SENT TO MAIN LAB. ANH CEJA RN
[2020-05-06 11:21] LABS: BASO # 0.1 10*3/uL (0.0-0.1); BASO % 0.6 % (0.0-1.0); EOS # 0.1 10*3/uL (0.0-0.4); EOS % 1.4 % (1.0-4.0); HEMATOCRIT 31.3 % (42.0-52.0); LYMPH # 2.2 10*3/uL (1.3-4.4); LYMPH % 25.4 % (27.0-41.0); MEAN CELL VOLUME 67.3 fl (80.0-94.0); MEAN CORPUSCULAR HGB 18.1 pg (27.0-31.0); MEAN CORPUSCULAR HGB CONC 26.8 g/dl (33.0-37.0); MEAN PLATELET VOLUME 9.4 fl (9.6-12.3); MONO # 0.9 10*3/uL (0.1-1.0); MONO % 9.8 % (3.0-9.0); NEUT # 5.4 10*3/uL (2.3-7.9); NEUT % 62.3 % (47.0-73.0); PLATELET COUNT AUTOMATED 412 10*3/uL (130-400); RED BLOOD COUNT 4.65 10*6/uL (4.50-5.90); RED CELL DISTRI WIDTH 22.4 % (0-14.5); WHITE BLOOD COUNT 8.7 10*3/uL (4.8-10.8)
[2020-05-06 11:49] LABS: ALBUMIN 3.5 gm/dl (3.1-4.5); ALKALINE PHOSPHATASE 115 U/L (45-117); BUN 15 mg/dl (7-24); CHLORIDE 96 mmol/L (98-107); POTASSIUM 3.9 mmol/L (3.5-5.1); SGOT/AST 18 IU/L (3-35); SGPT/ALT 22 U/L (12-78); SODIUM 133 mmol/L (136-145); TOTAL PROTEIN 8.1 gm/dL (6.4-8.2)
== END | disposition home or self-care (01) ==
LOC: SDC 00:54
PROVIDERS: ATTEND Internal Medicine
DX: Z45.2 Encounter for adjustment and management of vascular access device (principal); I33.0 Acute and subacute infective endocarditis; R07.89 Other chest pain; R78.81 Bacteremia

== ENCOUNTER → 2020-05-10 | Day surgery (SDC) | payer OTHER ==
[~2020-05-10] MED LIST changes: +REXULTI1 MG PO
[2020-05-10 10:41] LABS: ALBUMIN 3.6 gm/dl (3.1-4.5); ALKALINE PHOSPHATASE 106 U/L (45-117); BUN 15 mg/dl (7-24); CHLORIDE 98 mmol/L (98-107); CREATININE 1.14 mg/dL (0.70-1.30); POTASSIUM 4.3 mmol/L (3.5-5.1); SGOT/AST 19 IU/L (3-35); SGPT/ALT 20 U/L (12-78); SODIUM 132 mmol/L (136-145)
[2020-05-10 10:46] LABS: BASO # 0.1 10*3/uL (0.0-0.1); BASO % 0.8 % (0.0-1.0); EOS # 0.2 10*3/uL (0.0-0.4); EOS % 2.4 % (1.0-4.0); HEMATOCRIT 32.2 % (42.0-52.0); LYMPH # 2.2 10*3/uL (1.3-4.4); LYMPH % 24.1 % (27.0-41.0); MEAN CELL VOLUME 68.4 fl (80.0-94.0); MEAN CORPUSCULAR HGB 18.5 pg (27.0-31.0); MEAN PLATELET VOLUME 9.2 fl (9.6-12.3); MONO # 0.8 10*3/uL (0.1-1.0); MONO % 8.7 % (3.0-9.0); NEUT # 5.8 10*3/uL (2.3-7.9); NEUT % 63.1 % (47.0-73.0); PLATELET COUNT AUTOMATED 386 10*3/uL (130-400); RED BLOOD COUNT 4.71 10*6/uL (4.50-5.90); RED CELL DISTRI WIDTH 22.5 % (0-14.5); WHITE BLOOD COUNT 9.2 10*3/uL (4.8-10.8)
--- NOTE | 2020-05-18 07:45 | NUR ---
LATE ENTRY 05/10/20 1100 PATIENT HERE FOR LAB DRAW FROM MIDLINE. UNABLE TO GET BLOOD RETURN FROM MIDLINE. LAB CALLED TO DRAW FROM PERIPHERAL SITE. ORDER PLACED. ANH CEJA RN
== END | disposition home or self-care (01) ==
LOC: SDC 09:54
PROVIDERS: ATTEND Internal Medicine
DX: I33.0 Acute and subacute infective endocarditis (principal); R78.81 Bacteremia; R07.89 Other chest pain; Z88.5 Allergy status to narcotic agent; Z88.8 Allergy status to other drugs, medicaments and biological substances

== ENCOUNTER → 2020-05-25 | Outpatient (CLI) | payer OTHER | END | disposition home or self-care (01) | LOC: CARD 12:00 | PROVIDERS: ATTEND Registered Nurse Infection Control | DX: I51.7 Cardiomegaly (principal); I38 Endocarditis, valve unspecified ==

== ENCOUNTER 2020-05-28 09:20 | Inpatient (IN) | payer OTHER ==
[2020-05-28] VITALS (7 sets, daily range): BP systolic 90–135; BP diastolic 52–84
[~2020-05-28] VITALS: Ht 188 cm; Wt 140.6 kg
[~2020-05-28 09:20] MED LIST changes: -DUONEB INH; +Ipratropium Brom3 ML INH; -REQUIP0.25 M1 PO; +ROPINIROLE HYDRO1 MG PO
[2020-05-28 10:20] LABS: HEMATOCRIT 31.5 % (42.0-52.0); MEAN CELL VOLUME 70.6 fl (80.0-94.0); MEAN CORPUSCULAR HGB 18.6 pg (27.0-31.0); MEAN CORPUSCULAR HGB CONC 26.3 g/dl (33.0-37.0); MEAN PLATELET VOLUME 8.8 fl (9.6-12.3); PLATELET COUNT AUTOMATED 329 10*3/uL (130-400); RED BLOOD COUNT 4.46 10*6/uL (4.50-5.90); RED CELL DISTRI WIDTH 20.7 % (0-14.5)
[2020-05-28 10:31] LABS: ACT PARTIAL THROMBO TIME 29.2 SECONDS (20.0-32.1); INTERNATIONAL NORM RATIO 0.9 (2.0-3.5)
[2020-05-28 10:38] LABS: MICROCYTOSIS SLIGHT; PLATELET SUFFICIENCY NORMAL (NORMAL); POLYCHROMASIA SLIGHT; TOTAL CELLS COUNTED 100 #CELLS
[2020-05-28 10:41] LABS: ALBUMIN 3.2 gm/dl (3.1-4.5); ALKALINE PHOSPHATASE 132 U/L (45-117); BUN 29 mg/dl (7-24); CHLORIDE 100 mmol/L (98-107); CREATININE 1.68 mg/dL (0.70-1.30); LIPASE 145 U/L (73-393); POTASSIUM 5.3 mmol/L (3.5-5.1); SGOT/AST 8 IU/L (3-35); SGPT/ALT 24 U/L (12-78); SODIUM 132 mmol/L (136-145); TOTAL PROTEIN 6.8 gm/dL (6.4-8.2)
[2020-05-28 10:44] LABS: TROPONIN I < 0.015 ng/ml (<0.045)
--- NOTE | 2020-05-28 10:51 | NUR ---
NO CHANGE IN MENTAL STATUS SINCE ARRIVAL. PT IS EASILY AROUSED TO VOICE AND EVEN TOUCH BUT IS NOT VERBALLY RESPONSIVE YET.
[2020-05-28 10:54] LABS: ABG BASE EXCESS -1.6 mmol/L (-2.0-2.0); ARTERIAL BLOOD GAS PH 7.265 (7.35-7.45)
[2020-05-28 11:03] LABS: BILIRUBIN Negative (Negative); BLOOD 2+ (Negative); CLARITY Clear (Clear); COLOR Yellow (Yellow); GLUCOSE Trace (Negative); KETONE Trace (Negative); LEUKO ESTERASE Negative (Negative); NITRITE Negative (Negative); SPECIFIC GRAVITY 1.025 (1.001-1.030); UROBILINOGEN 0.2 E.U./dl (0.0-1.0)
[2020-05-28 11:17] LABS: URINE AMPHETAMINES < 1000 (1000ng/ml); URINE BARBITURATES < 200 (200ng/ml); URINE BENZODIAZEPINES < 200 (200ng/ml); URINE CANNABINOIDS (THC) < 50 (50ng/ml); URINE COCAINE < 300 (300ng/ml); URINE OPIATES > 300 (300ng/ml)
[2020-05-28 11:19] LABS: BACTERIA 2+; EPITHELIAL CELLS 0-2; MUCOUS 1+; YEAST 2+
[2020-05-28 11:21] LABS: URINE METHADONE < 300 (300ng/ml)
[2020-05-28 11:24] LABS: URINE PHENCYCLIDINE < 25 (25ng/ml)
--- NOTE | 2020-05-28 11:34 | NUR ---
NARCAN ADMINISTERED. PT'S MENTAL STATE DID IMPROVE WITH THIS DOSING AND HE NOW FOLLOWS SIMPLE DIRECTIONS AND ANSWERS SIMPLE QUESTIONS BUT IS CERTAINLY NOT TO HIS NORMAL BASELINE (SEEN IN PRIOR VISITS HERE). DR BIRCH AWARE.
--- NOTE | 2020-05-28 12:33 | NUR ---
NO CHANGE IN CONDITION SINCE AFTER THE SUBTLE IMPROVEMENT FROM THE NARCAN DOSE EARLIER. VITALS REMAIN STABLE WITH TACHYCARDIA.
--- NOTE | 2020-05-28 13:35 | NUR ---
PT TO CT. NO CHANGE IN PT CONDITION OR COMPLAINT. VITALS STABLE, TACHYCARDIA REMAINS. SECOND LITER BOLUS NSS INFUSING NOW PER ORDER.
--- NOTE | 2020-05-28 14:15 | NUR ---
A 54, admitted to ICCU, under the services of JESSICA Ballesteros MD with a diagnosis of METABOLIC ENCEPHALOPATHYWEAK AT HOME. Chief complaint is . Patient arrived via from ER. Monitor applied. Initial assessment completed. Vital signs taken and recorded. JESSICA BALLESTEROS MD notified of admission to the unit. Orders received. See assessment for past medical history, medications and allergies. Patient and/or family oriented to unit. [facility] visitation policy reviewed. Clothing/patient valuable form completed. YOUNG OLIVIA
[2020-05-28] MEDS ORDERED: PULMICORT RESP0.5 M1 INH (14:28)
[2020-05-28] MEDS ORDERED: LEVEMIR FL100 UNIT/1 SC (14:31)
--- NOTE | 2020-05-28 14:35 | NUR ---
PATIENT MEDS REVIEWED WITH PATIENT AND UPDATED - COMPARED TO MED CLAIM HISTORY
--- NOTE | 2020-05-28 15:00 | NUR ---
DR MOYER AWARE OF SCABS ON LOWER LEGS
--- NOTE | 2020-05-28 15:05 | NUR ---
BELONGINGS SENT TO [facility] AND 2 VA OF LARGE SCISSORS
--- NOTE | 2020-05-28 16:00 | NUR ---
DR FERGUSON NOTIFIED OF CONSULT
[2020-05-28 16:07] LABS: ABG BASE EXCESS -0.7 mmol/L (-2.0-2.0); ARTERIAL BLOOD GAS PH 7.358 (7.35-7.45)
--- NOTE | 2020-05-28 16:39 | NUR ---
PT UP TO USE URINAL-STEADY GAIT PT HAS CALLED GF TO BRING IN CPAP AND OSTOMY SUPPLIES
--- NOTE | 2020-05-28 18:06 | NUR ---
PT REQUESTED THAT HIS GIRLFRIEND BRING IN HIS CPAP PER DR FERGUSON "ILL CALL HER WHEN IM GOOD AND READY TO CALL HER" GIRLFRIEND CALLED BY STAFF TO BRING IN CPAP, DR FERGUSON WANTS HIM TO USE IT DIONE, ADVISED TO BRING TO ER, AND SHE IS AGREEABLE
--- NOTE | 2020-05-28 20:00 | NUR ---
[birth year]: ASSESSMENT DONE AND ASSISTED PT WITH COMPLETE CHANGE OF COLOSTOMY WAFER AND ATTACHMENT OF NEW BAG PER HIS REQUEST. COMPLETE CHANGE OF BED AND NEW GOWN APPLIED. PT'S GF BROUGHT CPAP AND COLOSTOMY SUPPLIES.
--- NOTE | 2020-05-28 22:22 | NUR ---
DR MOYER NOTIFIED OF PRELIMINARY BLOOD CULTURE RESULTS. ORDERS RECEIVED.
[2020-05-29] VITALS: BP 114/60
--- NOTE | 2020-05-29 01:25 | NUR ---
PT ON AND OFF HIS HOME CPAP BY HIMSELF. AT THIS TIME, HIS COLOSTOMY BAG IS FULL OF BROWN MUSHY STOOL, ASSISTED HIM INTO CHANGING THIS HE PLACES AN ENTIRELY NEW ONE ON.
--- NOTE | 2020-05-29 02:16 | NUR ---
AWAKE, VOIDING OFTEN, SITTING ON EDGE OF BED. DENIES NEEDS AT THIS TIME. CALL LIGHT REMAINS IN REACH.
--- NOTE | 2020-05-29 02:40 | NUR ---
MEDICATED WITH PO DILAUDID FOR C/O HEAD/NECK DISCOMFORT 04/05.
--- NOTE | 2020-05-29 03:00 | NUR ---
PT DOZING. BODY RELAXED. HR 110'S. AWAKENS EASILY TO VERBAL STIMULI.
[2020-05-29 06:00] LABS: CHLORIDE 107 mmol/L (98-107); CREATININE 0.98 mg/dL (0.70-1.30)
[2020-05-29 06:01] LABS: BASO % 0.2 % (0.0-1.0); EOS # 0.1 10*3/uL (0.0-0.4); EOS % 0.7 % (1.0-4.0); HEMATOCRIT 31.1 % (42.0-52.0); LYMPH # 2.3 10*3/uL (1.3-4.4); MEAN CELL VOLUME 69.1 fl (80.0-94.0); MEAN CORPUSCULAR HGB 18.2 pg (27.0-31.0); MEAN CORPUSCULAR HGB CONC 26.4 g/dl (33.0-37.0); MEAN PLATELET VOLUME 9.3 fl (9.6-12.3); MONO # 1.5 10*3/uL (0.1-1.0); MONO % 11.5 % (3.0-9.0); NEUT # 8.6 10*3/uL (2.3-7.9); NEUT % 68.6 % (47.0-73.0); PLATELET COUNT AUTOMATED 326 10*3/uL (130-400); RED CELL DISTRI WIDTH 20.8 % (0-14.5); WHITE BLOOD COUNT 12.6 10*3/uL (4.8-10.8)
[2020-05-29 06:22] LABS: BUN 12 mg/dl (7-24); POTASSIUM 4.3 mmol/L (3.5-5.1); SODIUM 138 mmol/L (136-145)
[2020-05-29 08:00] VITALS: BP 170/70
--- NOTE | 2020-05-29 09:12 | NUR ---
[facility] IVF dc'd Dr. Chau was notified of consult.
--- NOTE | 2020-05-29 12:14 | NUR ---
Assisted up to chair. Awake and alert at times, at other times nods off .
[2020-05-29 16:00] VITALS: BP 109/62
--- NOTE | 2020-05-29 16:13 | NUR ---
Requested dilaudid, given, chronic pain .
[2020-05-29 20:00] VITALS: BP 113/52
--- NOTE | 2020-05-29 20:25 | NUR ---
[id number] SITTING UP IN CHAIR AT BEDSIDE, TALKING ON THE PHONE. ALERT AND PLEASANT. HEP LOCK INTACT. PULSE OX 96% ON RA. NO C/O'S VOICED. NO DISTRESS NOTED.
--- NOTE | 2020-05-29 20:26 | NUR ---
2000 BACK TO BED. HOB ELEVATED. SIDE RAILS UP X'S 2. CALL LIGHT IN REACH.
--- NOTE | 2020-05-29 21:31 | NUR ---
PT REQUESTING MARCINTI. DR. MOYER CALLED. ORDERS RECEIVED.
--- NOTE | 2020-05-29 22:15 | NUR ---
PT RESTING IN BED WATCHING TV.
[2020-05-30] VITALS: BP 102/51
--- NOTE | 2020-05-30 00:18 | NUR ---
ROUTINE MS CONTIN GIVEN EARLIER. IN RECLINER CHAIR AT BEDSIDE. RESTING WITH EYES CLOSED. APPEARS TO BE SLEEPING.
--- NOTE | 2020-05-30 02:38 | NUR ---
RESTING IN BED WITH EYES CLOSED.
[2020-05-30 04:00] VITALS: BP 105/50
--- NOTE | 2020-05-30 05:52 | NUR ---
DR. MOYER IN TO SEE PT.
--- NOTE | 2020-05-30 06:09 | NUR ---
RESTING IN BED WITH EYES CLOSED. APPEARS TO BE SLEEPING. CONDITION GUARDED,
--- NOTE | 2020-05-30 06:43 | NUR ---
TRANSFERRED TO [facility] VIA BED WITH BELONGINGS. ORIENTED TO ROOM AND CALL LIGHT. REPORT GIVEN.
[2020-05-30 08:00] VITALS: BP 112/78
[2020-05-30 12:00] VITALS: BP 112/64; BP 131/78
--- NOTE | 2020-05-30 15:24 | NUR ---
DR. OQUEND[facility]
[2020-05-30 16:00] VITALS: BP 109/63
--- NOTE | 2020-05-30 19:01 | NUR ---
MEDICATED WITH PO DAILUDID FOR COMPLAINTS OF PAIN IN MID BACK. RATES PAIN A 6 ON A PAIN SCALE OF 1-10
[2020-05-30 20:00] VITALS: BP 115/59
--- NOTE | 2020-05-30 20:10 | NUR ---
PT SEEN AND ASSESSED. PT DENIES ANY NEEDS FOR PRN MEDICATIONS AT THIS TIME. PT STATES HE IS FEELING MUCH BETTER. PT IS PLEASANT AND COOPERATIVE.
[2020-05-31] VITALS: BP 119/61
--- NOTE | 2020-05-31 02:10 | NUR ---
24 HR chart check completed.
--- NOTE | 2020-05-31 04:38 | NUR ---
PT STATING HIS IV TO HIS LEFT UPPER ARM IS HURTING. SITE ASSESSED AND THERE ARE NO APPARENT SYMPTOMS OTHER THAN PT C/O. NEW LINE OBTAINED TO RFA AND OL DSITE FROM CHANDANA REMOVED. HEMOSTASIS MAINATAINED, SITE SECURED WITH 2X2 AND TAPE.
[2020-05-31 06:19] LABS: BASO # 0.1 10*3/uL (0.0-0.1); BASO % 0.5 % (0.0-1.0); EOS # 0.2 10*3/uL (0.0-0.4); EOS % 1.3 % (1.0-4.0); HEMATOCRIT 31.7 % (42.0-52.0); LYMPH # 3.5 10*3/uL (1.3-4.4); LYMPH % 31.1 % (27.0-41.0); MEAN CELL VOLUME 69.2 fl (80.0-94.0); MEAN CORPUSCULAR HGB 18.8 pg (27.0-31.0); MEAN CORPUSCULAR HGB CONC 27.1 g/dl (33.0-37.0); MEAN PLATELET VOLUME 8.9 fl (9.6-12.3); MONO % 8.4 % (3.0-9.0); NEUT # 6.6 10*3/uL (2.3-7.9); NEUT % 57.8 % (47.0-73.0); PLATELET COUNT AUTOMATED 314 10*3/uL (130-400); RED BLOOD COUNT 4.58 10*6/uL (4.50-5.90); RED CELL DISTRI WIDTH 20.4 % (0-14.5); WHITE BLOOD COUNT 11.3 10*3/uL (4.8-10.8)
[2020-05-31 06:32] LABS: ALBUMIN 3.1 gm/dl (3.1-4.5); ALKALINE PHOSPHATASE 106 U/L (45-117); BUN 16 mg/dl (7-24); CHLORIDE 103 mmol/L (98-107); CREATININE 0.94 mg/dL (0.70-1.30); POTASSIUM 4.1 mmol/L (3.5-5.1); SGOT/AST 14 IU/L (3-35); SGPT/ALT 19 U/L (12-78); SODIUM 135 mmol/L (136-145); TOTAL PROTEIN 7.2 gm/dL (6.4-8.2)
[2020-05-31 08:00] VITALS: BP 120/68
--- NOTE | 2020-05-31 08:17 | NUR ---
PHYSICAL THERAPY Screen received pt admitted with sycope and severe sepsis, please consult PT if pt has a decline in functional status below baseline thank you Cecilia Khan PT
--- NOTE | 2020-05-31 09:42 | NUR ---
NOTIFIED DR CARMONA'S ANSWERING SERVICE OF CONSULT.
--- NOTE | 2020-05-31 10:30 | NUR ---
Commercial Driver'S License Driver in to talk to patient. Patient states lives at home with his girlfriend. There are 0 steps in the home. There are 4 outside steps. Physician: Dr. Federico Gross Pharmacy: [facility] Home health services: none Patient's level of ADLs: minimal assistance Patient has working utilities: yes DME: [employer] Follow-up physician's appointment after d/c: he prefers to make his own follow up appt after discharge Does patient want to access PORTAL?: no Discharge plan discussed with patient. He is sitting up in his bedside chair. He lives at home with his girlfriend and his family checking in on him. He needs minimal assistance in his ADLs and ambulation. Discussed home health care services and he declines. CM will continue to follow for any discharge planning needs. When medically stable he will be discharged to home. He states his girlfriend will provide transportation on discharge. PATRICK MULLER
[2020-05-31 12:00] VITALS: BP 139/84
--- NOTE | 2020-05-31 12:39 | NUR ---
DILAUDID GIVEN PER PATIENT REQUEST FOR COMPLAINTS OF BREAKTHROUGH HEADACHE PAIN RATED 9/10. WILL ASSESS EFFECTIVENESS.
--- NOTE | 2020-05-31 13:26 | NUR ---
DILAUDID EFFECTIVE PER PATIENT. WILL CONTINUE TO MONITOR.
[2020-05-31 16:00] VITALS: BP 124/63
--- NOTE | 2020-05-31 16:10 | NUR ---
Nursing screen received and chart reviewed. Patient admitted with syncope and severe sepsis. He is assisted at home by his girlfriend and plans to return home upon d/c. If patient should have a decline in baseline ADLs then refer to OT for further assessment. THank you. Noemi Temple OTR/L
--- NOTE | 2020-05-31 19:00 | NUR ---
ASSUMED CARE FOR THIS PT AT THIS TIME. PT AWAKE SITTING IN RECLINER CHAIR IN ROOM WATCHING TV. PT DRINKING GOLYTLY. NO C/O VOICED. CALL LIGHT IN REACH.
--- NOTE | 2020-05-31 19:30 | NUR ---
Pt on 4L - 100% - Dec to 2L. Pt doesnt need oxygen. Pt wants it.
[2020-05-31 20:00] VITALS: BP 112/71
[2020-06-01] VITALS (8 sets, daily range): BP systolic 111–151; BP diastolic 42–72
--- NOTE | 2020-06-01 09:00 | NUR ---
CM in to see patient. No new needs or request at this time. Discussed the possibility of home IV antibiotics and he is agreeable. He would like [facility] as he has had them in the past. He is unable to get home health care services due to home health not wanting to pick him up again either due to his noncompliance or due to his insurance. Awaiting colo and BRENDEN today. Discharge plan undecided at this time but he would like to go home with home IV antibiotics if possible.
--- NOTE | 2020-06-01 09:46 | NUR ---
PT OFF THE UNIT TO SURGERY.
--- NOTE | 2020-06-01 12:31 | NUR ---
ATTEMPTED TO CALL REPORT TO FLOOR NURSE, WAS TOLD SHE WAS AT [facility] AND THE COMMUNICATIONS DEPARTMENT CHAIRPERSON DID NOT KNOW WHO WAS COVERING. WILL CALL BACK.
--- NOTE | 2020-06-01 14:19 | NUR ---
Nutritional Support Services Note: Appetite is good for meals. He is eating 100% of all meals served. He receives a regular diet as ordered. Wt stable. Wounds noted. Encouraged healthy eating, adequate protein intake. Refused a supplement at this time. Will follow as needed. Jacqueline Griffith Rdn Ld
--- NOTE | 2020-06-01 14:59 | NUR ---
PT MEDICATED WITH EXCEDRIN PO C/O HEADACHE PER ORDERS. CALL LIGHT IN REACH. WILL MONITOR.
--- NOTE | 2020-06-01 15:45 | NUR ---
MEDICATION EFFECTIVE PER PT. CALL LIGHT IN REACH. WILL MONITOR
[2020-06-01] MEDS ORDERED: CEFAZOLIN1 G1 IV (16:43)
--- NOTE | 2020-06-01 22:00 | NUR ---
DR. MOYER NOTIFIED OF PT'S REQUEST FOR PO DILAUDID AND ORDER . OK TO R/O.
--- NOTE | 2020-06-01 22:42 | NUR ---
PT MEDICATED W/DILAUDID 6MG PO FOR C/O BACK PAIN. CALL LIGHT IN REACH.
--- NOTE | 2020-06-01 23:40 | NUR ---
PT STATES DILAUDID WAS EFFECTIVE FOR BACK PAIN RELIEF. PT RESTING QUIETLY IN BED. CALL LIGHT IN REACH.
[2020-06-02 00:08] VITALS: BP 118/58
--- NOTE | 2020-06-02 00:30 | NUR ---
PT AMBULATING T/O HALLWAY W/MASK ON AT THIS TIME.
[2020-06-02 06:28] LABS: BASO # 0.1 10*3/uL (0.0-0.1); BASO % 0.6 % (0.0-1.0); EOS # 0.1 10*3/uL (0.0-0.4); EOS % 1.3 % (1.0-4.0); HEMATOCRIT 32.8 % (42.0-52.0); LYMPH # 3.6 10*3/uL (1.3-4.4); LYMPH % 33.6 % (27.0-41.0); MEAN CELL VOLUME 69.5 fl (80.0-94.0); MEAN CORPUSCULAR HGB 18.6 pg (27.0-31.0); MEAN CORPUSCULAR HGB CONC 26.8 g/dl (33.0-37.0); MEAN PLATELET VOLUME 9.2 fl (9.6-12.3); MONO # 0.9 10*3/uL (0.1-1.0); MONO % 8.1 % (3.0-9.0); NEUT % 55.2 % (47.0-73.0); PLATELET COUNT AUTOMATED 357 10*3/uL (130-400); RED BLOOD COUNT 4.72 10*6/uL (4.50-5.90); WHITE BLOOD COUNT 10.8 10*3/uL (4.8-10.8)
[2020-06-02 06:54] LABS: CHLORIDE 104 mmol/L (98-107); POTASSIUM 4.4 mmol/L (3.5-5.1); SODIUM 137 mmol/L (136-145)
[2020-06-02 07:04] LABS: BUN 16 mg/dl (7-24); CREATININE 0.98 mg/dL (0.70-1.30)
--- NOTE | 2020-06-02 07:51 | NUR ---
CM in to see patient. He is sitting up in his bedside chair. Discussed midline and IV antibiotics. Midline in LUE. Received prescription for Kefzol 2 GM IV every [address] Soto. Faxed prescription and clinical to [facility]. Awaiting response. Patient wants to know if the medicine would be in the same ball form as previously. Will reach out to Alejandra at [facility].
--- NOTE | 2020-06-02 09:57 | NUR ---
Spoke to Nellie at [facility]. Intake is currently in their morning meeting. Awaiting response.
--- NOTE | 2020-06-02 11:02 | NUR ---
Spoke to Alejandra at [facility]. She will be between 3-4 pm to go over his home IV antibiotics with the patient. She ask that we hold the 1400 dose so she can show patient how to connect the home IV antibiotics. Nurse and patient notified. She will add an extension to his tubing therefore he will be able to administer the antibiotics himself.
--- NOTE | 2020-06-02 11:16 | NUR ---
Spoke to Alejandra from [employer]. She will be here at 3pm to show patient how to administer his home IV antibiotics. Notified well service floor worker.
--- NOTE | 2020-06-02 11:41 | NUR ---
Spoke to Gokul at [facility] [employer] regarding prior authorization for midline dressing change (CPT code 64333). Since [facility] is an in-network facility no auth is needed. Call ref # [id number]. Spoke to Helena in central scheduling. Patient is scheduled for 06/08 at 0930 for midline dressing change. Prescription for dressing change faxed to central scheduling. Patient notified. Notified Alejandra at [facility] of no lab orders from Dr. Soto.
--- NOTE | 2020-06-02 11:57 | NUR ---
Asked Dr. Soto for script with lab protocol for patient. Awaiting response.
[2020-06-02 12:00] VITALS: BP 115/68
--- NOTE | 2020-06-02 12:46 | NUR ---
Received lab orders from Dr. Soto's office. Given to patient. Discussed with patient his midline dressing change is scheduled for 09 on 06/08 and then again 06/15. Informed patient the above information will also be on his discharge paperwork. He verbalized an understanding.
--- NOTE | 2020-06-02 16:20 | NUR ---
[facility] Discharge instructions reviewed with patient/family. Patient receptive and verbalizes understanding. Follow-up care arranged. Written instructions given to patient/family. KALYANI IRIZARRY
== END 2020-06-02 16:44 | disposition home or self-care (01) | DRG 917 ==
LOC: ED 09:20 → EDHOLD 13:12 → ICCU 13:12 → 4E 13:12 → ICCU 13:43 → 4E 05-30 06:51
PROVIDERS: Emergency Medicine; Internal Medicine Critical Care Medicine; Surgery; ADMIT Internal Medicine; ATTEND Internal Medicine
PROC: 0DBL8ZX Excision of Transverse Colon, Via Natural or Artificial Opening Endoscopic, Diagnostic (ICD-10-PCS; principal; 2020-06-01)
PROC: B24BZZ4 Ultrasonography of Heart with Aorta, Transesophageal (ICD-10-PCS; principal; 2020-06-01)
PROC: 0DBM8ZX Excision of Descending Colon, Via Natural or Artificial Opening Endoscopic, Diagnostic (ICD-10-PCS; 2020-06-01)
DX: T40.601A Poisoning by unspecified narcotics, accidental (unintentional), initial encounter (principal); A40.8 Other streptococcal sepsis; J18.9 Pneumonia, unspecified organism; G93.41 Metabolic encephalopathy; J96.02 Acute respiratory failure with hypercapnia; R65.20 Severe sepsis without septic shock; N17.9 Acute kidney failure, unspecified; D68.51 Activated protein C resistance; J44.0 Chronic obstructive pulmonary disease with (acute) lower respiratory infection; Y92.89 Other specified places as the place of occurrence of the external cause; E11.65 Type 2 diabetes mellitus with hyperglycemia; K52.9 Noninfective gastroenteritis and colitis, unspecified; G89.4 Chronic pain syndrome; J45.909 Unspecified asthma, uncomplicated; G47.33 Obstructive sleep apnea (adult) (pediatric); G25.81 Restless legs syndrome; F31.9 Bipolar disorder, unspecified; F41.1 Generalized anxiety disorder; D64.9 Anemia, unspecified; E66.8 Other obesity; E78.5 Hyperlipidemia, unspecified; Z79.4 Long term (current) use of insulin; Z88.6 Allergy status to analgesic agent; Z88.1 Allergy status to other antibiotic agents; Z88.8 Allergy status to other drugs, medicaments and biological substances; Z83.6 Family history of other diseases of the respiratory system; Z80.0 Family history of malignant neoplasm of digestive organs; Z82.49 Family history of ischemic heart disease and other diseases of the circulatory system; Z85.72 Personal history of non-Hodgkin lymphomas; Z90.49 Acquired absence of other specified parts of digestive tract; Z85.038 Personal history of other malignant neoplasm of large intestine; Z86.718 Personal history of other venous thrombosis and embolism; Z91.14 Patient's other noncompliance with medication regimen; Z68.39 Body mass index [BMI] 39.0-39.9, adult

== ENCOUNTER → 2020-06-08 | Day surgery (SDC) | payer OTHER ==
[~2020-06-08] MED LIST changes: +CEFAZOLIN1 G1 IV; +LEVEMIR FL100 UNIT/1 SC
[2020-06-08 10:00] VITALS: BP 110/65
[2020-06-08 10:31] LABS: BASO # 0.1 10*3/uL (0.0-0.1); BASO % 0.6 % (0.0-1.0); EOS # 0.1 10*3/uL (0.0-0.4); EOS % 1.4 % (1.0-4.0); HEMATOCRIT 30.6 % (42.0-52.0); LYMPH # 2.6 10*3/uL (1.3-4.4); LYMPH % 27.5 % (27.0-41.0); MEAN CELL VOLUME 69.5 fl (80.0-94.0); MEAN CORPUSCULAR HGB 18.6 pg (27.0-31.0); MEAN CORPUSCULAR HGB CONC 26.8 g/dl (33.0-37.0); MEAN PLATELET VOLUME 8.6 fl (9.6-12.3); MONO # 0.8 10*3/uL (0.1-1.0); MONO % 8.4 % (3.0-9.0); NEUT # 5.7 10*3/uL (2.3-7.9); NEUT % 59.7 % (47.0-73.0); PLATELET COUNT AUTOMATED 473 10*3/uL (130-400); RED CELL DISTRI WIDTH 19.6 % (0-14.5); WHITE BLOOD COUNT 9.6 10*3/uL (4.8-10.8)
[2020-06-08 10:47] LABS: ALBUMIN 3.3 gm/dl (3.1-4.5); ALKALINE PHOSPHATASE 129 U/L (45-117); BUN 13 mg/dl (7-24); CHLORIDE 104 mmol/L (98-107); CREATININE 1.09 mg/dL (0.70-1.30); POTASSIUM 4.2 mmol/L (3.5-5.1); SGOT/AST 17 IU/L (3-35); SGPT/ALT 14 U/L (12-78); SODIUM 136 mmol/L (136-145); TOTAL PROTEIN 7.1 gm/dL (6.4-8.2)
== END | disposition home or self-care (01) ==
LOC: SDC 01:02
PROVIDERS: ATTEND Internal Medicine
DX: I33.0 Acute and subacute infective endocarditis (principal); R07.89 Other chest pain; F41.9 Anxiety disorder, unspecified; E11.9 Type 2 diabetes mellitus without complications; J44.9 Chronic obstructive pulmonary disease, unspecified; I50.9 Heart failure, unspecified; R78.81 Bacteremia; Z88.5 Allergy status to narcotic agent; Z88.8 Allergy status to other drugs, medicaments and biological substances; Z83.3 Family history of diabetes mellitus

== ENCOUNTER → 2020-06-10 | Outpatient (CLI) | payer OTHER ==
[2020-06-10 11:10] LABS: BASO # 0.1 10*3/uL (0.0-0.1); BASO % 0.5 % (0.0-1.0); EOS # 0.2 10*3/uL (0.0-0.4); EOS % 1.5 % (1.0-4.0); HEMATOCRIT 30.1 % (42.0-52.0); LYMPH # 2.6 10*3/uL (1.3-4.4); LYMPH % 24.1 % (27.0-41.0); MEAN CORPUSCULAR HGB 18.6 pg (27.0-31.0); MEAN CORPUSCULAR HGB CONC 26.9 g/dl (33.0-37.0); MEAN PLATELET VOLUME 9.2 fl (9.6-12.3); MONO # 0.8 10*3/uL (0.1-1.0); NEUT # 7.2 10*3/uL (2.3-7.9); NEUT % 65.9 % (47.0-73.0); PLATELET COUNT AUTOMATED 535 10*3/uL (130-400); RED BLOOD COUNT 4.36 10*6/uL (4.50-5.90)
[2020-06-10 11:24] LABS: ALBUMIN 3.3 gm/dl (3.1-4.5); ALKALINE PHOSPHATASE 138 U/L (45-117); BUN 27 mg/dl (7-24); CHLORIDE 98 mmol/L (98-107); CREATININE 1.34 mg/dL (0.70-1.30); POTASSIUM 4.1 mmol/L (3.5-5.1); SGOT/AST 15 IU/L (3-35); SGPT/ALT 13 U/L (12-78); SODIUM 132 mmol/L (136-145); TOTAL PROTEIN 7.2 gm/dL (6.4-8.2)
== END | disposition home or self-care (01) ==
LOC: LAB 01:00
PROVIDERS: ATTEND Internal Medicine
DX: I33.0 Acute and subacute infective endocarditis (principal); R78.81 Bacteremia; R07.89 Other chest pain

== ENCOUNTER → 2020-06-12 | Outpatient (CLI) | payer OTHER ==
[~2020-06-12] MED LIST changes: +DILT-XR120 MG PO; +REXULTI2 MG PO
== END | disposition home or self-care (01) ==
LOC: PICC 10:00
PROVIDERS: ATTEND Internal Medicine
DX: N39.0 Urinary tract infection, site not specified (principal); K56.609 Unspecified intestinal obstruction, unspecified as to partial versus complete obstruction

== ENCOUNTER 2020-06-15 12:51 | Inpatient (IN) | payer OTHER ==
[~2020-06-15] VITALS: Ht 188 cm; Wt 143.4 kg
[~2020-06-15 12:51] MED LIST changes: -DILT-XR120 MG PO; -REXULTI2 MG PO
[2020-06-15 13:08] VITALS: BP 89/48
[2020-06-15 13:57] LABS: BASO # 0.1 10*3/uL (0.0-0.1); BASO % 0.6 % (0.0-1.0); EOS # 0.2 10*3/uL (0.0-0.4); HEMATOCRIT 28.8 % (42.0-52.0); LYMPH # 2.7 10*3/uL (1.3-4.4); LYMPH % 27.5 % (27.0-41.0); MEAN CELL VOLUME 68.4 fl (80.0-94.0); MEAN CORPUSCULAR HGB 18.8 pg (27.0-31.0); MEAN CORPUSCULAR HGB CONC 27.4 g/dl (33.0-37.0); MEAN PLATELET VOLUME 8.7 fl (9.6-12.3); MONO # 0.9 10*3/uL (0.1-1.0); MONO % 8.8 % (3.0-9.0); NEUT # 5.9 10*3/uL (2.3-7.9); NEUT % 60.1 % (47.0-73.0); PLATELET COUNT AUTOMATED 414 10*3/uL (130-400); RED BLOOD COUNT 4.21 10*6/uL (4.50-5.90); RED CELL DISTRI WIDTH 18.6 % (0-14.5); WHITE BLOOD COUNT 9.9 10*3/uL (4.8-10.8)
[2020-06-15 14:19] LABS: ALBUMIN 3.4 gm/dl (3.1-4.5); ALKALINE PHOSPHATASE 131 U/L (45-117); BUN 22 mg/dl (7-24); CHLORIDE 98 mmol/L (98-107); CREATININE 1.44 mg/dL (0.70-1.30); POTASSIUM 4.5 mmol/L (3.5-5.1); SGOT/AST 12 IU/L (3-35); SGPT/ALT 16 U/L (12-78); SODIUM 132 mmol/L (136-145); TOTAL PROTEIN 7.2 gm/dL (6.4-8.2)
[2020-06-15 14:26] LABS: TROPONIN I < 0.015 ng/ml (<0.045)
[2020-06-15 14:53] VITALS: BP 91/52
[2020-06-15 15:51] VITALS: BP 93/55
[2020-06-15 16:40] VITALS: BP 122/58
[2020-06-15 18:18] LABS: ABG BASE EXCESS -2.6 mmol/L (-2.0-2.0); ARTERIAL BLOOD GAS PH 7.362 (7.35-7.45)
[2020-06-15 18:43] LABS: FERRITIN 7.9 ng/mL (22.0-322.0)
[2020-06-15 20:00] VITALS: BP 136/65
[2020-06-15] MEDS ORDERED: REXULTI2 MG PO (21:10)
[2020-06-16] VITALS: BP 116/61
[2020-06-16 06:22] LABS: BASO % 0.2 % (0.0-1.0); HEMATOCRIT 29.4 % (42.0-52.0); LYMPH # 2.7 10*3/uL (1.3-4.4); LYMPH % 17.7 % (27.0-41.0); MEAN CELL VOLUME 67.9 fl (80.0-94.0); MEAN CORPUSCULAR HGB 18.7 pg (27.0-31.0); MEAN CORPUSCULAR HGB CONC 27.6 g/dl (33.0-37.0); MEAN PLATELET VOLUME 9.2 fl (9.6-12.3); MONO # 0.9 10*3/uL (0.1-1.0); MONO % 5.9 % (3.0-9.0); NEUT # 11.6 10*3/uL (2.3-7.9); NEUT % 75.2 % (47.0-73.0); PLATELET COUNT AUTOMATED 433 10*3/uL (130-400); RED BLOOD COUNT 4.33 10*6/uL (4.50-5.90); RED CELL DISTRI WIDTH 18.6 % (0-14.5); WHITE BLOOD COUNT 15.5 10*3/uL (4.8-10.8)
[2020-06-16 08:00] VITALS: BP 148/78
[2020-06-16 12:00] VITALS: BP 100/55
[2020-06-16 16:00] VITALS: BP 111/60
[2020-06-16 20:00] VITALS: BP 105/60
[2020-06-16 21:17] LABS: BILIRUBIN Negative (Negative); BLOOD Trace-Lysed (Negative); CLARITY Clear (Clear); COLOR Yellow (Yellow); GLUCOSE Negative (Negative); KETONE Negative (Negative); LEUKO ESTERASE Trace (Negative); NITRITE Negative (Negative); SPECIFIC GRAVITY <= 1.005 (1.001-1.030); UROBILINOGEN 0.2 E.U./dl (0.0-1.0)
[2020-06-16 21:26] LABS: YEAST 1+
[2020-06-16 21:29] LABS: BACTERIA TRACE; RBC 0-2 rbc/hpf (0-2)
[2020-06-17] VITALS: BP 126/60
[2020-06-17 08:00] VITALS: BP 118/64
[2020-06-17 12:00] VITALS: BP 110/50
[2020-06-17 16:00] VITALS: BP 110/50
[2020-06-17 17:21] LABS: BASO # 0.1 10*3/uL (0.0-0.1); BASO % 0.5 % (0.0-1.0); EOS # 0.3 10*3/uL (0.0-0.4); EOS % 2.4 % (1.0-4.0); HEMATOCRIT 31.6 % (42.0-52.0); MEAN CORPUSCULAR HGB 18.9 pg (27.0-31.0); MEAN CORPUSCULAR HGB CONC 27.8 g/dl (33.0-37.0); MEAN PLATELET VOLUME 8.8 fl (9.6-12.3); MONO # 1.2 10*3/uL (0.1-1.0); NEUT # 7.4 10*3/uL (2.3-7.9); NEUT % 56.4 % (47.0-73.0); NUCLEATED RED BLOOD CELL 0.2 % (0.0-0.0); PLATELET COUNT AUTOMATED 429 10*3/uL (130-400); RED BLOOD COUNT 4.65 10*6/uL (4.50-5.90); RED CELL DISTRI WIDTH 19.6 % (0-14.5); WHITE BLOOD COUNT 13.2 10*3/uL (4.8-10.8)
[2020-06-17 17:34] LABS: BUN 21 mg/dl (7-24); CHLORIDE 97 mmol/L (98-107); CREATININE 1.12 mg/dL (0.70-1.30); POTASSIUM 3.9 mmol/L (3.5-5.1); SODIUM 135 mmol/L (136-145)
[2020-06-17 20:00] VITALS: BP 104/62
[2020-06-18] VITALS: BP 109/59
[2020-06-18 08:00] VITALS: BP 158/64
== END 2020-06-18 13:25 | disposition home or self-care (01) | DRG 871 ==
LOC: ED 12:51 → 5E 15:22 → EDHOLD 15:22 → 5E 16:39
PROVIDERS: Physician Assistant; Social Worker Clinical; ADMIT Internal Medicine; ATTEND Internal Medicine
DX: A41.9 Sepsis, unspecified organism (principal); E11.00 Type 2 diabetes mellitus with hyperosmolarity without nonketotic hyperglycemic-hyperosmolar coma (NKHHC); J18.9 Pneumonia, unspecified organism; J44.0 Chronic obstructive pulmonary disease with (acute) lower respiratory infection; Z68.41 Body mass index [BMI] 40.0-44.9, adult; G89.4 Chronic pain syndrome; F41.9 Anxiety disorder, unspecified; K21.9 Gastro-esophageal reflux disease without esophagitis; E78.5 Hyperlipidemia, unspecified; I11.0 Hypertensive heart disease with heart failure; I50.9 Heart failure, unspecified; F32.9 Major depressive disorder, single episode, unspecified; E66.9 Obesity, unspecified; R65.20 Severe sepsis without septic shock; G47.33 Obstructive sleep apnea (adult) (pediatric); Z88.1 Allergy status to other antibiotic agents; Z88.5 Allergy status to narcotic agent; Z88.8 Allergy status to other drugs, medicaments and biological substances; Z83.3 Family history of diabetes mellitus; Z82.49 Family history of ischemic heart disease and other diseases of the circulatory system; Z79.899 Other long term (current) drug therapy; Z80.9 Family history of malignant neoplasm, unspecified

== ENCOUNTER 2020-06-30 12:13 | Inpatient (IN) | payer OTHER ==
[2020-06-30] VITALS (7 sets, daily range): BP systolic 82–129; BP diastolic 49–66
[~2020-06-30] VITALS: Ht 188 cm; Wt 137.2 kg
[~2020-06-30 12:13] MED LIST changes: +REXULTI2 MG PO
[2020-06-30 13:29] LABS: BASO # 0.1 10*3/uL (0.0-0.1); BASO % 0.7 % (0.0-1.0); EOS # 0.2 10*3/uL (0.0-0.4); EOS % 2.2 % (1.0-4.0); HEMATOCRIT 33.2 % (42.0-52.0); LYMPH # 2.9 10*3/uL (1.3-4.4); LYMPH % 31.8 % (27.0-41.0); MEAN CELL VOLUME 70.8 fl (80.0-94.0); MEAN CORPUSCULAR HGB CONC 26.8 g/dl (33.0-37.0); MEAN PLATELET VOLUME 9.2 fl (9.6-12.3); MONO # 0.7 10*3/uL (0.1-1.0); NEUT # 5.1 10*3/uL (2.3-7.9); NEUT % 56.7 % (47.0-73.0); PLATELET COUNT AUTOMATED 397 10*3/uL (130-400); RED BLOOD COUNT 4.69 10*6/uL (4.50-5.90); RED CELL DISTRI WIDTH 20.6 % (0-14.5)
[2020-06-30 13:45] LABS: ALBUMIN 3.5 gm/dl (3.1-4.5); ALKALINE PHOSPHATASE 121 U/L (45-117); BUN 17 mg/dl (7-24); CHLORIDE 99 mmol/L (98-107); CREATININE 1.35 mg/dL (0.70-1.30); POTASSIUM 3.9 mmol/L (3.5-5.1); SGOT/AST 11 IU/L (3-35); SGPT/ALT 23 U/L (12-78); SODIUM 133 mmol/L (136-145); TOTAL PROTEIN 7.1 gm/dL (6.4-8.2)
[2020-07-01 00:12] VITALS: BP 125/60
[2020-07-01 08:00] VITALS: BP 144/68
[2020-07-01 09:15] VITALS: BP 142/68
[2020-07-01 12:00] VITALS: BP 148/70
[2020-07-01 16:00] VITALS: BP 118/62
[2020-07-01 20:00] VITALS: BP 149/80; BP 162/65
[2020-07-02] VITALS: BP 110/60
[2020-07-02 08:00] VITALS: BP 135/70
[2020-07-02 12:00] VITALS: BP 128/74
[2020-07-02 16:00] VITALS: BP 123/62
[2020-07-02 20:00] VITALS: BP 138/74
[2020-07-03] VITALS: BP 164/86
[2020-07-03 08:00] VITALS: BP 144/73
[2020-07-03 12:00] VITALS: BP 129/77
[2020-07-03 12:40] LABS: BASO % 0.1 % (0.0-1.0); HEMATOCRIT 34.4 % (42.0-52.0); LYMPH % 11.5 % (27.0-41.0); MEAN CELL VOLUME 69.2 fl (80.0-94.0); MEAN CORPUSCULAR HGB 19.5 pg (27.0-31.0); MEAN CORPUSCULAR HGB CONC 28.2 g/dl (33.0-37.0); MEAN PLATELET VOLUME 9.4 fl (9.6-12.3); MONO # 0.4 10*3/uL (0.1-1.0); MONO % 2.5 % (3.0-9.0); NEUT # 14.5 10*3/uL (2.3-7.9); PLATELET COUNT AUTOMATED 405 10*3/uL (130-400); RED BLOOD COUNT 4.97 10*6/uL (4.50-5.90); RED CELL DISTRI WIDTH 21.1 % (0-14.5); WHITE BLOOD COUNT 17.1 10*3/uL (4.8-10.8)
[2020-07-03 13:07] LABS: ALBUMIN 3.5 gm/dl (3.1-4.5); ALKALINE PHOSPHATASE 119 U/L (45-117); BUN 20 mg/dl (7-24); CHLORIDE 106 mmol/L (98-107); CREATININE 1.39 mg/dL (0.70-1.30); POTASSIUM 4.7 mmol/L (3.5-5.1); SGOT/AST 21 IU/L (3-35); SGPT/ALT 22 U/L (12-78); SODIUM 138 mmol/L (136-145); TOTAL PROTEIN 7.2 gm/dL (6.4-8.2)
[2020-07-03 16:00] VITALS: BP 141/78
[2020-07-03 20:00] VITALS: BP 139/75
[2020-07-04] VITALS: BP 151/82
[2020-07-04 04:48] VITALS: BP 145/64
[2020-07-04 08:00] VITALS: BP 123/71
[2020-07-04 12:00] VITALS: BP 152/77
[2020-07-04 16:00] VITALS: BP 152/79
[2020-07-04 20:00] VITALS: BP 163/60
[2020-07-05] VITALS (9 sets, daily range): BP systolic 121–176; BP diastolic 70–86
[2020-07-06] VITALS: BP 128/74
[2020-07-06 08:00] VITALS: BP 132/74
[2020-07-06 12:00] VITALS: BP 136/74
[2020-07-06 16:01] VITALS: BP 154/68
[2020-07-06 20:00] VITALS: BP 154/76
[2020-07-07] VITALS: BP 128/69
[2020-07-07 08:00] VITALS: BP 137/67
[2020-07-07 12:00] VITALS: BP 130/59
[2020-07-07 16:00] VITALS: BP 138/42
[2020-07-07 20:00] VITALS: BP 149/68
[2020-07-08] VITALS: BP 145/88
[2020-07-08 06:29] LABS: BASO % 0.2 % (0.0-1.0); EOS # 0.1 10*3/uL (0.0-0.4); HEMATOCRIT 32.9 % (42.0-52.0); LYMPH # 3.1 10*3/uL (1.3-4.4); LYMPH % 23.9 % (27.0-41.0); MEAN CELL VOLUME 68.7 fl (80.0-94.0); MEAN CORPUSCULAR HGB 19.4 pg (27.0-31.0); MEAN CORPUSCULAR HGB CONC 28.3 g/dl (33.0-37.0); MEAN PLATELET VOLUME 9.5 fl (9.6-12.3); MONO # 1.2 10*3/uL (0.1-1.0); MONO % 9.2 % (3.0-9.0); NEUT # 8.4 10*3/uL (2.3-7.9); PLATELET COUNT AUTOMATED 367 10*3/uL (130-400); RED BLOOD COUNT 4.79 10*6/uL (4.50-5.90); RED CELL DISTRI WIDTH 20.2 % (0-14.5); WHITE BLOOD COUNT 13.1 10*3/uL (4.8-10.8)
[2020-07-08 06:57] LABS: BUN 14 mg/dl (7-24); CHLORIDE 108 mmol/L (98-107); CREATININE 0.72 mg/dL (0.70-1.30); POTASSIUM 4.7 mmol/L (3.5-5.1); SODIUM 138 mmol/L (136-145)
[2020-07-08 08:00] VITALS: BP 161/60
[2020-07-08 12:00] VITALS: BP 133/81
[2020-07-08 16:00] VITALS: BP 147/50
[2020-07-08 20:00] VITALS: BP 143/73
[2020-07-09] VITALS: BP 141/77
[2020-07-09 08:00] VITALS: BP 125/76
[2020-07-09 08:33] LABS: HEMATOCRIT 33.1 % (42.0-52.0); MEAN CELL VOLUME 68.5 fl (80.0-94.0); MEAN CORPUSCULAR HGB 19.7 pg (27.0-31.0); MEAN CORPUSCULAR HGB CONC 28.7 g/dl (33.0-37.0); PLATELET COUNT AUTOMATED 291 10*3/uL (130-400); RED BLOOD COUNT 4.83 10*6/uL (4.50-5.90); RED CELL DISTRI WIDTH 20.7 % (0-14.5); WHITE BLOOD COUNT 15.4 10*3/uL (4.8-10.8)
[2020-07-09 08:47] LABS: BUN 15 mg/dl (7-24); CHLORIDE 106 mmol/L (98-107); CREATININE 0.87 mg/dL (0.70-1.30); POTASSIUM 3.8 mmol/L (3.5-5.1); SODIUM 140 mmol/L (136-145)
[2020-07-09 11:06] LABS: MICROCYTOSIS SLIGHT; TOTAL CELLS COUNTED 100 #CELLS
[2020-07-09 11:07] LABS: PLATELET SUFFICIENCY NORMAL (NORMAL)
[2020-07-09] MEDS ORDERED: DILT-XR120 MG PO (11:54)
[2020-07-09 12:00] VITALS: BP 124/70
== END 2020-07-09 13:38 | disposition home or self-care (01) | DRG 189 ==
LOC: ED 12:13 → 4E 15:05 → EDHOLD 15:05 → 4E 15:29
PROVIDERS: Emergency Medicine; Internal Medicine Critical Care Medicine; ADMIT Internal Medicine; ATTEND Internal Medicine
PROC: 0D9680Z Drainage of Stomach with Drainage Device, Via Natural or Artificial Opening Endoscopic (ICD-10-PCS; principal; 2020-07-05)
DX: J96.20 Acute and chronic respiratory failure, unspecified whether with hypoxia or hypercapnia (principal); J45.901 Unspecified asthma with (acute) exacerbation; E87.2 Acidosis; R78.81 Bacteremia; F33.1 Major depressive disorder, recurrent, moderate; I47.2 Ventricular tachycardia; Z68.41 Body mass index [BMI] 40.0-44.9, adult; D68.2 Hereditary deficiency of other clotting factors; D68.9 Coagulation defect, unspecified; K56.50 Intestinal adhesions [bands], unspecified as to partial versus complete obstruction; J20.9 Acute bronchitis, unspecified; J43.2 Centrilobular emphysema; E78.2 Mixed hyperlipidemia; I10 Essential (primary) hypertension; N40.0 Benign prostatic hyperplasia without lower urinary tract symptoms; G43.909 Migraine, unspecified, not intractable, without status migrainosus; E11.8 Type 2 diabetes mellitus with unspecified complications; G25.81 Restless legs syndrome; E66.01 Morbid (severe) obesity due to excess calories; F41.1 Generalized anxiety disorder; G89.4 Chronic pain syndrome; G47.33 Obstructive sleep apnea (adult) (pediatric); Z88.5 Allergy status to narcotic agent; Z85.038 Personal history of other malignant neoplasm of large intestine; Z88.8 Allergy status to other drugs, medicaments and biological substances; Z93.3 Colostomy status; Z83.6 Family history of other diseases of the respiratory system; Z80.8 Family history of malignant neoplasm of other organs or systems; Z82.49 Family history of ischemic heart disease and other diseases of the circulatory system

== ENCOUNTER 2020-09-14 14:40 | Emergency (ER) | payer OTHER ==
[~2020-09-14] VITALS: Ht 187.9 cm; Wt 142.9 kg
[~2020-09-14 14:40] MED LIST changes: +DILT-XR120 MG PO; +NEURONTIN800 MG PO
[2020-09-14 16:26] LABS: HEMATOCRIT 35.2 % (42.0-52.0); MEAN CELL VOLUME 62.7 fl (80.0-94.0); MEAN CORPUSCULAR HGB CONC 28.7 g/dl (33.0-37.0); MEAN PLATELET VOLUME 9.3 fl (9.6-12.3); PLATELET COUNT AUTOMATED 541 10*3/uL (130-400); RED BLOOD COUNT 5.61 10*6/uL (4.50-5.90); RED CELL DISTRI WIDTH 21.8 % (0-14.5); WHITE BLOOD COUNT 19.6 10*3/uL (4.8-10.8)
[2020-09-14 16:44] LABS: MICROCYTOSIS MODERATE; OVALOCYTES FEW; PLATELET SUFFICIENCY HIGH (NORMAL); POLYCHROMASIA SLIGHT; TOTAL CELLS COUNTED 100 #CELLS
[2020-09-14 16:49] LABS: ALBUMIN 3.5 gm/dl (3.1-4.5); ALKALINE PHOSPHATASE 169 U/L (45-117); BUN 14 mg/dl (7-24); CHLORIDE 97 mmol/L (98-107); CREATININE 1.06 mg/dL (0.70-1.30); POTASSIUM 4.1 mmol/L (3.5-5.1); SGOT/AST 18 IU/L (3-35); SGPT/ALT 44 U/L (12-78); SODIUM 129 mmol/L (136-145); TOTAL PROTEIN 7.8 gm/dL (6.4-8.2)
[2020-09-14 16:51] LABS: TROPONIN I < 0.015 ng/ml (<0.045)
[2020-09-14 16:52] LABS: BILIRUBIN Negative (Negative); BLOOD 1+ (Negative); CLARITY Clear (Clear); COLOR Yellow (Yellow); GLUCOSE 3+ (Negative); KETONE Negative (Negative); LEUKO ESTERASE Negative (Negative); NITRITE Negative (Negative); PH 5.5 (4.5-8.0); SPECIFIC GRAVITY >= 1.030 (1.001-1.030); UROBILINOGEN 0.2 E.U./dl (0.0-1.0)
[2020-09-14 17:08] LABS: BACTERIA TRACE
[2020-09-14 18:16] VITALS: BP 114/70
[2020-09-14] MEDS ORDERED: CIPRO250 MG PO (20:20)
[2020-09-14] MEDS ORDERED: FLAGYL500 MG PO (20:20)
[2020-10-13] MEDS ORDERED: BUMETANIDE2 MG PO (18:35)
[2020-10-17] MEDS ORDERED: CARDIZEM CD120 M2 PO (08:21)
[2020-10-17] MEDS ORDERED: OMNICEF300 MG PO (08:21)
== END 2020-09-14 20:45 | disposition home or self-care (01) ==
LOC: ED 14:40
PROVIDERS: Nurse Practitioner
DX: R10.12 Left upper quadrant pain (principal)

== ENCOUNTER → 2020-09-27 | Outpatient (CLI) | payer OTHER ==
[~2020-09-27] MED LIST changes: +AUGMENTIN 875875 MG PO; +CARDIZEM CD120 M2 PO; +CELECOXIB200 M1 PO; +CIPRO250 MG PO; +FLAGYL500 MG PO; +HYDROMORPHONE HC2 MG PO; +HYDROXYZINE PAM50 MG PO; +QUETIAPINE FUM100 M3 PO; +TIZANIDINE HCL4 MG PO
== END | disposition home or self-care (01) ==
LOC: COVID19 10:59
PROVIDERS: ATTEND Internal Medicine
DX: Z20.822 Contact with and (suspected) exposure to COVID-19 (principal)

== ENCOUNTER → 2020-10-12 | Outpatient (CLI) | payer OTHER | END | disposition home or self-care (01) | LOC: COVID19 15:44 | PROVIDERS: ATTEND Internal Medicine | DX: Z20.822 Contact with and (suspected) exposure to COVID-19 (principal) ==

== ENCOUNTER 2020-10-20 11:13 | Inpatient (IN) | payer OTHER ==
[~2020-10-20] VITALS: Ht 188 cm; Wt 142.5 kg
[~2020-10-20 11:13] MED LIST changes: -AUGMENTIN 875875 MG PO; -CELECOXIB200 M1 PO; -HYDROMORPHONE HC2 MG PO; -HYDROXYZINE PAM50 MG PO; -QUETIAPINE FUM100 M3 PO; -TIZANIDINE HCL4 MG PO
[2020-10-20 11:29] VITALS: BP 108/54
[2020-10-20 11:59] VITALS: BP 100/61
[2020-10-20 13:01] LABS: BILIRUBIN Negative (Negative); BLOOD Trace-Lysed (Negative); CLARITY Cloudy (Clear); COLOR Yellow (Yellow); GLUCOSE 3+ (Negative); KETONE Negative (Negative); LEUKO ESTERASE 1+ (Negative); NITRITE Negative (Negative); SPECIFIC GRAVITY 1.015 (1.001-1.030); UROBILINOGEN 0.2 E.U./dl (0.0-1.0)
[2020-10-20 13:08] LABS: BACTERIA 1+; WBC 21-30 wbc/hpf (0-5)
[2020-10-20 13:16] LABS: TROPONIN I < 0.015 ng/ml (<0.045)
[2020-10-20 13:20] LABS: BASO # 0.1 10*3/uL (0.0-0.1); BASO % 0.3 % (0.0-1.0); EOS # 0.5 10*3/uL (0.0-0.4); HEMATOCRIT 32.8 % (42.0-52.0); LYMPH # 1.5 10*3/uL (1.3-4.4); LYMPH % 8.7 % (27.0-41.0); MEAN CELL VOLUME 66.1 fl (80.0-94.0); MEAN CORPUSCULAR HGB 18.8 pg (27.0-31.0); MEAN CORPUSCULAR HGB CONC 28.4 g/dl (33.0-37.0); MEAN PLATELET VOLUME 9.7 fl (9.6-12.3); MONO # 1.1 10*3/uL (0.1-1.0); MONO % 6.4 % (3.0-9.0); NEUT # 13.8 10*3/uL (2.3-7.9); NEUT % 80.1 % (47.0-73.0); PLATELET COUNT AUTOMATED 433 10*3/uL (130-400); RED BLOOD COUNT 4.96 10*6/uL (4.50-5.90); RED CELL DISTRI WIDTH 22.5 % (0-14.5); WHITE BLOOD COUNT 17.2 10*3/uL (4.8-10.8)
[2020-10-20 13:31] LABS: ALBUMIN 3.3 gm/dl (3.1-4.5); ALKALINE PHOSPHATASE 156 U/L (45-117); BUN 46 mg/dl (7-24); CHLORIDE 93 mmol/L (98-107); CREATININE 4.23 mg/dL (0.70-1.30); SGOT/AST 28 IU/L (3-35); SGPT/ALT 37 U/L (12-78); SODIUM 125 mmol/L (136-145); TOTAL PROTEIN 7.8 gm/dL (6.4-8.2)
[2020-10-20 13:33] LABS: POTASSIUM 6.7 mmol/L (3.5-5.1)
[2020-10-20 14:15] VITALS: BP 96/48
[2020-10-20 14:27] VITALS: BP 107/76
[2020-10-20 15:00] VITALS: BP 122/65
[2020-10-20 18:07] LABS: ALBUMIN 3.2 gm/dl (3.1-4.5); ALKALINE PHOSPHATASE 150 U/L (45-117); BUN 43 mg/dl (7-24); CHLORIDE 99 mmol/L (98-107); CREATININE 3.23 mg/dL (0.70-1.30); SGOT/AST 31 IU/L (3-35); SGPT/ALT 33 U/L (12-78); SODIUM 130 mmol/L (136-145); TOTAL PROTEIN 7.6 gm/dL (6.4-8.2)
[2020-10-20 18:09] LABS: TROPONIN I < 0.015 ng/ml (<0.045)
[2020-10-20 18:10] LABS: POTASSIUM 5.2 mmol/L (3.5-5.1)
[2020-10-20 19:30] LABS: URINE AMPHETAMINES < 1000 (1000ng/ml); URINE BARBITURATES < 200 (200ng/ml); URINE BENZODIAZEPINES < 200 (200ng/ml); URINE CANNABINOIDS (THC) < 50 (50ng/ml); URINE COCAINE < 300 (300ng/ml); URINE METHADONE < 300 (300ng/ml); URINE OPIATES > 300 (300ng/ml)
[2020-10-20 19:35] LABS: URINE PHENCYCLIDINE < 25 (25ng/ml)
[2020-10-20 20:00] VITALS: BP 110/38
[2020-10-21] VITALS: BP 106/50
[2020-10-21 04:00] VITALS: BP 113/56
[2020-10-21 06:17] LABS: BASO % 0.4 % (0.0-1.0); EOS # 0.2 10*3/uL (0.0-0.4); EOS % 1.7 % (1.0-4.0); HEMATOCRIT 32.2 % (42.0-52.0); LYMPH # 1.9 10*3/uL (1.3-4.4); LYMPH % 17.4 % (27.0-41.0); MEAN CELL VOLUME 65.8 fl (80.0-94.0); MEAN CORPUSCULAR HGB 18.4 pg (27.0-31.0); MEAN PLATELET VOLUME 9.5 fl (9.6-12.3); MONO # 0.9 10*3/uL (0.1-1.0); MONO % 8.6 % (3.0-9.0); NEUT # 7.7 10*3/uL (2.3-7.9); PLATELET COUNT AUTOMATED 393 10*3/uL (130-400); RED BLOOD COUNT 4.89 10*6/uL (4.50-5.90); RED CELL DISTRI WIDTH 22.2 % (0-14.5); WHITE BLOOD COUNT 10.8 10*3/uL (4.8-10.8)
[2020-10-21 06:29] LABS: ALBUMIN 3.1 gm/dl (3.1-4.5); CREATININE 1.73 mg/dL (0.70-1.30)
[2020-10-21 08:00] VITALS: BP 100/60
[2020-10-21 11:12] VITALS: BP 118/68
[2020-10-21 16:00] VITALS: BP 120/69
[2020-10-21 20:00] VITALS: BP 137/89
[2020-10-22] VITALS: BP 138/93
[2020-10-22 04:00] VITALS: BP 125/79
[2020-10-22 08:00] VITALS: BP 156/95
[2020-10-22 12:00] VITALS: BP 129/80
[2020-10-22 13:17] LABS: BASO # 0.1 10*3/uL (0.0-0.1); BASO % 0.5 % (0.0-1.0); EOS # 0.1 10*3/uL (0.0-0.4); HEMATOCRIT 34.2 % (42.0-52.0); LYMPH # 3.2 10*3/uL (1.3-4.4); LYMPH % 27.2 % (27.0-41.0); MEAN CELL VOLUME 65.5 fl (80.0-94.0); MEAN CORPUSCULAR HGB 18.4 pg (27.0-31.0); MEAN CORPUSCULAR HGB CONC 28.1 g/dl (33.0-37.0); MEAN PLATELET VOLUME 8.8 fl (9.6-12.3); MONO # 1.1 10*3/uL (0.1-1.0); MONO % 8.9 % (3.0-9.0); NEUT # 7.2 10*3/uL (2.3-7.9); NEUT % 61.4 % (47.0-73.0); PLATELET COUNT AUTOMATED 410 10*3/uL (130-400); RED BLOOD COUNT 5.22 10*6/uL (4.50-5.90); RED CELL DISTRI WIDTH 22.2 % (0-14.5); WHITE BLOOD COUNT 11.8 10*3/uL (4.8-10.8)
[2020-10-22 13:32] LABS: ALBUMIN 3.3 gm/dl (3.1-4.5); ALKALINE PHOSPHATASE 149 U/L (45-117); CHLORIDE 100 mmol/L (98-107); CREATININE 1.22 mg/dL (0.70-1.30); POTASSIUM 4.3 mmol/L (3.5-5.1); SGOT/AST 22 IU/L (3-35); SGPT/ALT 38 U/L (12-78); SODIUM 132 mmol/L (136-145); TOTAL PROTEIN 7.8 gm/dL (6.4-8.2)
[2020-10-22 13:33] LABS: BUN 13 mg/dl (7-24)
[2020-10-22 16:00] VITALS: BP 145/80
[2020-10-22 20:00] VITALS: BP 140/82
[2020-10-23] VITALS: BP 128/82
[2020-10-23 06:37] LABS: BASO # 0.1 10*3/uL (0.0-0.1); BASO % 0.6 % (0.0-1.0); EOS # 0.2 10*3/uL (0.0-0.4); HEMATOCRIT 33.2 % (42.0-52.0); LYMPH # 3.6 10*3/uL (1.3-4.4); LYMPH % 33.8 % (27.0-41.0); MEAN CELL VOLUME 65.4 fl (80.0-94.0); MEAN CORPUSCULAR HGB 18.3 pg (27.0-31.0); MEAN PLATELET VOLUME 9.2 fl (9.6-12.3); MONO # 0.8 10*3/uL (0.1-1.0); MONO % 7.4 % (3.0-9.0); NEUT # 5.8 10*3/uL (2.3-7.9); NEUT % 55.3 % (47.0-73.0); PLATELET COUNT AUTOMATED 403 10*3/uL (130-400); RED BLOOD COUNT 5.08 10*6/uL (4.50-5.90); RED CELL DISTRI WIDTH 22.2 % (0-14.5); WHITE BLOOD COUNT 10.5 10*3/uL (4.8-10.8)
[2020-10-23 07:07] LABS: BUN 12 mg/dl (7-24); CHLORIDE 103 mmol/L (98-107); CREATININE 0.93 mg/dL (0.70-1.30); SODIUM 136 mmol/L (136-145)
[2020-10-23 08:00] VITALS: BP 142/74
[2020-10-23 12:00] VITALS: BP 145/70
[2020-10-23 16:00] VITALS: BP 148/86
[2020-10-23 20:00] VITALS: BP 144/84
[2020-10-24] VITALS: BP 133/66
[2020-10-24 06:27] LABS: BUN 14 mg/dl (7-24); CHLORIDE 102 mmol/L (98-107); CREATININE 0.92 mg/dL (0.70-1.30); SODIUM 137 mmol/L (136-145)
[2020-10-24 08:00] VITALS: BP 130/88
[2020-10-24 12:00] VITALS: BP 154/95
[2020-10-24 16:00] VITALS: BP 130/72
== END 2020-10-24 18:44 | disposition home or self-care (01) | DRG 871 ==
LOC: ED 11:13 → ICCU 13:47 → EDHOLD 13:47 → ICCU 14:04 → 5E 10-22 14:10
PROVIDERS: Emergency Medicine; Internal Medicine Nephrology; ADMIT Internal Medicine; ATTEND Internal Medicine
PROC: 5A09357 Assistance with Respiratory Ventilation, Less than 24 Consecutive Hours, Continuous Positive Airway Pressure (ICD-10-PCS; principal; 2020-10-21)
PROC: 5A09357 Assistance with Respiratory Ventilation, Less than 24 Consecutive Hours, Continuous Positive Airway Pressure (ICD-10-PCS; 2020-10-22)
DX: A41.9 Sepsis, unspecified organism (principal); N17.0 Acute kidney failure with tubular necrosis; G93.41 Metabolic encephalopathy; N39.0 Urinary tract infection, site not specified; K56.609 Unspecified intestinal obstruction, unspecified as to partial versus complete obstruction; L03.115 Cellulitis of right lower limb; E87.1 Hypo-osmolality and hyponatremia; D68.2 Hereditary deficiency of other clotting factors; Z68.41 Body mass index [BMI] 40.0-44.9, adult; F11.20 Opioid dependence, uncomplicated; F33.9 Major depressive disorder, recurrent, unspecified; R65.20 Severe sepsis without septic shock; I10 Essential (primary) hypertension; J44.9 Chronic obstructive pulmonary disease, unspecified; N40.1 Benign prostatic hyperplasia with lower urinary tract symptoms; G89.4 Chronic pain syndrome; E87.5 Hyperkalemia; E87.8 Other disorders of electrolyte and fluid balance, not elsewhere classified; I95.9 Hypotension, unspecified; E11.65 Type 2 diabetes mellitus with hyperglycemia; M54.9 Dorsalgia, unspecified; E66.01 Morbid (severe) obesity due to excess calories; F41.1 Generalized anxiety disorder; G43.909 Migraine, unspecified, not intractable, without status migrainosus; G25.81 Restless legs syndrome; J45.40 Moderate persistent asthma, uncomplicated; Z88.6 Allergy status to analgesic agent; Z88.1 Allergy status to other antibiotic agents; Z88.8 Allergy status to other drugs, medicaments and biological substances; Z91.14 Patient's other noncompliance with medication regimen; Z83.6 Family history of other diseases of the respiratory system; Z80.0 Family history of malignant neoplasm of digestive organs; Z93.3 Colostomy status; Z85.038 Personal history of other malignant neoplasm of large intestine

== ENCOUNTER 2020-11-03 13:54 | Observation (INO) | payer OTHER ==
[~2020-11-03] VITALS: Ht 187.9 cm; Wt 136.1 kg
[2020-11-03 14:01] VITALS: BP 135/80
[2020-11-03 14:40] LABS: BILIRUBIN Negative (Negative); BLOOD Trace-Lysed (Negative); CLARITY Clear (Clear); COLOR Yellow (Yellow); GLUCOSE 3+ (Negative); KETONE Negative (Negative); LEUKO ESTERASE Trace (Negative); NITRITE Negative (Negative); PH 5.5 (4.5-8.0); UROBILINOGEN 0.2 E.U./dl (0.0-1.0)
[2020-11-03 14:41] LABS: BASO # 0.1 10*3/uL (0.0-0.1); BASO % 0.6 % (0.0-1.0); EOS # 0.2 10*3/uL (0.0-0.4); EOS % 1.9 % (1.0-4.0); HEMATOCRIT 34.7 % (42.0-52.0); LYMPH # 3.3 10*3/uL (1.3-4.4); LYMPH % 30.2 % (27.0-41.0); MEAN CELL VOLUME 65.6 fl (80.0-94.0); MEAN CORPUSCULAR HGB 18.7 pg (27.0-31.0); MEAN CORPUSCULAR HGB CONC 28.5 g/dl (33.0-37.0); MEAN PLATELET VOLUME 8.8 fl (9.6-12.3); MONO # 0.8 10*3/uL (0.1-1.0); MONO % 7.7 % (3.0-9.0); NEUT # 6.4 10*3/uL (2.3-7.9); PLATELET COUNT AUTOMATED 378 10*3/uL (130-400); RED BLOOD COUNT 5.29 10*6/uL (4.50-5.90); WHITE BLOOD COUNT 10.8 10*3/uL (4.8-10.8)
[2020-11-03 14:56] LABS: ACT PARTIAL THROMBO TIME 24.5 SECONDS (20.0-32.1); INTERNATIONAL NORM RATIO 0.9 (2.0-3.5)
[2020-11-03 15:00] LABS: BACTERIA TRACE
[2020-11-03 15:04] LABS: ALBUMIN 3.4 gm/dl (3.1-4.5); ALKALINE PHOSPHATASE 168 U/L (45-117); BUN 18 mg/dl (7-24); CHLORIDE 95 mmol/L (98-107); CREATININE 1.21 mg/dL (0.70-1.30); POTASSIUM 4.2 mmol/L (3.5-5.1); SGOT/AST 13 IU/L (3-35); SGPT/ALT 33 U/L (12-78); SODIUM 132 mmol/L (136-145); TOTAL PROTEIN 7.8 gm/dL (6.4-8.2)
[2020-11-03 15:07] LABS: TROPONIN I < 0.015 ng/ml (<0.045)
[2020-11-03 19:04] VITALS: BP 104/65
[2020-11-03] MEDS ORDERED: QUETIAPINE FUM100 M3 PO (20:25)
[2020-11-03] MEDS ORDERED: BUSPIRONE HCL30 MG PO (20:28)
[2020-11-03] MEDS ORDERED: HYDROMORPHONE HC2 MG PO (20:29)
[2020-11-03] MEDS ORDERED: LEVEMIR FL100 UNIT/1 SC (20:33)
[2020-11-03] MEDS ORDERED: TIZANIDINE HCL4 MG PO (20:38)
[2020-11-03 20:46] VITALS: BP 119/83
[2020-11-03] MEDS ORDERED: AUGMENTIN 875875 MG PO (20:55)
[2020-11-03] MEDS ORDERED: CELECOXIB200 M1 PO (20:55)
[2020-11-03 21:15] VITALS: BP 125/78
[2020-11-04] VITALS: BP 127/76
[2020-11-04 07:33] LABS: BUN 14 mg/dl (7-24); CHLORIDE 100 mmol/L (98-107); CREATININE 0.96 mg/dL (0.70-1.30); POTASSIUM 4.1 mmol/L (3.5-5.1); SODIUM 133 mmol/L (136-145)
[2020-11-04 08:00] VITALS: BP 142/80
[2020-11-04 12:00] VITALS: BP 135/83
[2020-11-04 16:00] VITALS: BP 136/87
[2020-11-04 20:00] VITALS: BP 133/75
[2020-11-05] VITALS: BP 138/89
[2020-11-05 06:55] LABS: BUN 11 mg/dl (7-24); CHLORIDE 100 mmol/L (98-107); CREATININE 0.83 mg/dL (0.70-1.30); SODIUM 132 mmol/L (136-145)
[2020-11-05 08:00] VITALS: BP 129/97
[2020-11-05 12:00] VITALS: BP 122/83
== END 2020-11-05 14:10 | disposition home or self-care (01) ==
LOC: ED 13:54 → EDHOLD 16:27 → 4E 16:27
PROVIDERS: Emergency Medicine; ADMIT Internal Medicine; ATTEND Internal Medicine
DX: E86.0 Dehydration (principal); N39.0 Urinary tract infection, site not specified; E11.65 Type 2 diabetes mellitus with hyperglycemia; G89.4 Chronic pain syndrome; M47.816 Spondylosis without myelopathy or radiculopathy, lumbar region; D68.2 Hereditary deficiency of other clotting factors; E78.2 Mixed hyperlipidemia; F41.1 Generalized anxiety disorder; E66.9 Obesity, unspecified; I33.0 Acute and subacute infective endocarditis; G43.909 Migraine, unspecified, not intractable, without status migrainosus; J45.40 Moderate persistent asthma, uncomplicated; F31.9 Bipolar disorder, unspecified; E66.01 Morbid (severe) obesity due to excess calories; I95.9 Hypotension, unspecified; R42 Dizziness and giddiness; R30.0 Dysuria; N40.0 Benign prostatic hyperplasia without lower urinary tract symptoms; R33.9 Retention of urine, unspecified; Z90.49 Acquired absence of other specified parts of digestive tract; Z91.14 Patient's other noncompliance with medication regimen; Z68.41 Body mass index [BMI] 40.0-44.9, adult

== ENCOUNTER 2020-11-29 21:20 | Emergency (ER) | payer OTHER ==
[~2020-11-29] VITALS: Ht 187.9 cm; Wt 131.5 kg
[~2020-11-29 21:20] MED LIST changes: +AUGMENTIN 875875 MG PO; +CELECOXIB200 M1 PO; +HYDROMORPHONE HC2 MG PO; +QUETIAPINE FUM100 M3 PO; +TIZANIDINE HCL4 MG PO
[2020-11-29 22:20] LABS: BASO # 0.1 10*3/uL (0.0-0.1); BASO % 0.6 % (0.0-1.0); EOS # 0.2 10*3/uL (0.0-0.4); EOS % 1.3 % (1.0-4.0); HEMATOCRIT 39.9 % (42.0-52.0); LYMPH # 3.9 10*3/uL (1.3-4.4); LYMPH % 23.9 % (27.0-41.0); MEAN CELL VOLUME 64.4 fl (80.0-94.0); MEAN CORPUSCULAR HGB 18.4 pg (27.0-31.0); MEAN CORPUSCULAR HGB CONC 28.6 g/dl (33.0-37.0); MEAN PLATELET VOLUME 9.3 fl (9.6-12.3); MONO % 6.2 % (3.0-9.0); NEUT # 10.9 10*3/uL (2.3-7.9); NEUT % 67.4 % (47.0-73.0); PLATELET COUNT AUTOMATED 511 10*3/uL (130-400); RED CELL DISTRI WIDTH 20.1 % (0-14.5); WHITE BLOOD COUNT 16.2 10*3/uL (4.8-10.8)
[2020-11-29 22:35] LABS: ALBUMIN 3.9 gm/dl (3.1-4.5); ALKALINE PHOSPHATASE 191 U/L (45-117); BUN 17 mg/dl (7-24); CHLORIDE 98 mmol/L (98-107); CREATININE 1.29 mg/dL (0.70-1.30); LIPASE 490 U/L (73-393); POTASSIUM 4.3 mmol/L (3.5-5.1); SGOT/AST 18 IU/L (3-35); SGPT/ALT 39 U/L (12-78); SODIUM 129 mmol/L (136-145); TOTAL PROTEIN 9.1 gm/dL (6.4-8.2)
[2020-11-30 01:23] VITALS: BP 132/104
== END 2020-11-30 03:21 | disposition short-term general hospital (02) ==
LOC: ED 21:20
PROVIDERS: Physician Assistant
DX: K56.699 Other intestinal obstruction unspecified as to partial versus complete obstruction (principal); E11.9 Type 2 diabetes mellitus without complications; J44.9 Chronic obstructive pulmonary disease, unspecified; I50.9 Heart failure, unspecified; Z85.038 Personal history of other malignant neoplasm of large intestine; Z85.72 Personal history of non-Hodgkin lymphomas; Z88.8 Allergy status to other drugs, medicaments and biological substances; Z88.5 Allergy status to narcotic agent; Z88.1 Allergy status to other antibiotic agents; Z79.899 Other long term (current) drug therapy; Z79.2 Long term (current) use of antibiotics; Z79.4 Long term (current) use of insulin; Z98.890 Other specified postprocedural states

== ENCOUNTER → 2020-12-17 | Outpatient (CLI) | payer OTHER ==
[~2020-12-17] MED LIST changes: +HYDROXYZINE PAM50 MG PO
[2020-12-17 10:34] LABS: HEMATOCRIT 31.3 % (42.0-52.0); MEAN CELL VOLUME 65.9 fl (80.0-94.0); MEAN CORPUSCULAR HGB 18.3 pg (27.0-31.0); MEAN CORPUSCULAR HGB CONC 27.8 g/dl (33.0-37.0); MEAN PLATELET VOLUME 8.8 fl (9.6-12.3); NUCLEATED RED BLOOD CELL 0.1 10*3/uL (0.0-0.0); NUCLEATED RED BLOOD CELL 0.3 % (0.0-0.0); PLATELET COUNT AUTOMATED 673 10*3/uL (130-400); RED BLOOD COUNT 4.75 10*6/uL (4.50-5.90); RED CELL DISTRI WIDTH 19.9 % (0-14.5); WHITE BLOOD COUNT 17.3 10*3/uL (4.8-10.8)
[2020-12-17 10:51] LABS: BASOPHILS 1 % (0-1); POLYCHROMASIA SLIGHT; STOMATOCYTE FEW; TOTAL CELLS COUNTED 100 #CELLS
[2020-12-17 10:52] LABS: MICROCYTOSIS MODERATE; OVALOCYTES FEW; PLATELET SUFFICIENCY HIGH (NORMAL)
[2020-12-17 10:59] LABS: BUN 13 mg/dl (7-24); CHLORIDE 99 mmol/L (98-107); CREATININE 1.02 mg/dL (0.70-1.30); POTASSIUM 3.9 mmol/L (3.5-5.1); SODIUM 137 mmol/L (136-145)
== END | disposition home or self-care (01) ==
LOC: LAB 10:14
PROVIDERS: ATTEND Physician Assistant Medical
DX: J18.9 Pneumonia, unspecified organism (principal); K56.609 Unspecified intestinal obstruction, unspecified as to partial versus complete obstruction

== ENCOUNTER 2020-12-19 06:37 | Inpatient (IN) | payer OTHER ==
[2020-12-19] VITALS (7 sets, daily range): BP systolic 103–136; BP diastolic 65–80
[~2020-12-19] VITALS: Ht 187.9 cm; Wt 131.6 kg
[~2020-12-19 06:37] MED LIST changes: -HYDROXYZINE PAM50 MG PO
[2020-12-19 07:25] LABS: HEMATOCRIT 27.9 % (42.0-52.0); MEAN CORPUSCULAR HGB 18.2 pg (27.0-31.0); MEAN CORPUSCULAR HGB CONC 27.6 g/dl (33.0-37.0); MEAN PLATELET VOLUME 8.7 fl (9.6-12.3); PLATELET COUNT AUTOMATED 498 10*3/uL (130-400); RED BLOOD COUNT 4.23 10*6/uL (4.50-5.90); RED CELL DISTRI WIDTH 19.6 % (0-14.5); WHITE BLOOD COUNT 12.8 10*3/uL (4.8-10.8)
[2020-12-19 07:35] LABS: ACT PARTIAL THROMBO TIME 25.9 SECONDS (20.0-32.1)
[2020-12-19 07:39] LABS: ALBUMIN 2.6 gm/dl (3.1-4.5); ALKALINE PHOSPHATASE 148 U/L (45-117); BUN 20 mg/dl (7-24); CHLORIDE 99 mmol/L (98-107); CREATININE 1.18 mg/dL (0.70-1.30); POTASSIUM 3.8 mmol/L (3.5-5.1); SGOT/AST 10 IU/L (3-35); SGPT/ALT 23 U/L (12-78); SODIUM 133 mmol/L (136-145); TOTAL PROTEIN 7.2 gm/dL (6.4-8.2)
[2020-12-19 07:39] LABS: ABG BASE EXCESS 1.1 mmol/L (-2.0-2.0); ARTERIAL BLOOD GAS PH 7.44 (7.35-7.45); ARTERIAL BLOOD GAS PO2 84.3 (80-90)
[2020-12-19 07:42] LABS: TROPONIN I < 0.015 ng/ml (<0.045)
[2020-12-19 07:44] LABS: TOTAL CELLS COUNTED 100 #CELLS
[2020-12-19 07:45] LABS: MICROCYTOSIS MODERATE; POLYCHROMASIA SLIGHT
[2020-12-19 07:46] LABS: PLATELET SUFFICIENCY HIGH (NORMAL)
[2020-12-19 09:19] LABS: BILIRUBIN Negative (Negative); BLOOD 1+ (Negative); CLARITY Clear (Clear); COLOR Yellow (Yellow); GLUCOSE 3+ (Negative); KETONE Negative (Negative); LEUKO ESTERASE 1+ (Negative); NITRITE Negative (Negative); SPECIFIC GRAVITY 1.025 (1.001-1.030); UROBILINOGEN 0.2 E.U./dl (0.0-1.0)
[2020-12-19 09:32] LABS: RBC 21-30 rbc/hpf (0-2); WBC TNTC wbc/hpf (0-5)
[2020-12-19 09:33] LABS: YEAST 2+
[2020-12-19] MEDS ORDERED: MS CONTIN30 MG PO (11:12)
[2020-12-19] MEDS ORDERED: HYDROXYZINE PAM50 MG PO (11:18)
[2020-12-20] VITALS: BP 131/78
[2020-12-20 08:00] VITALS: BP 130/76
[2020-12-20 12:00] VITALS: BP 130/80
[2020-12-20 16:00] VITALS: BP 129/76
[2020-12-20 20:00] VITALS: BP 135/79
[2020-12-21] VITALS: BP 103/59
[2020-12-21 08:00] VITALS: BP 130/70
[2020-12-21 12:00] VITALS: BP 116/56
[2020-12-21 12:04] LABS: BASO # 0.1 10*3/uL (0.0-0.1); BASO % 0.7 % (0.0-1.0); EOS # 0.5 10*3/uL (0.0-0.4); EOS % 3.3 % (1.0-4.0); LYMPH # 2.8 10*3/uL (1.3-4.4); LYMPH % 19.4 % (27.0-41.0); MEAN CELL VOLUME 66.4 fl (80.0-94.0); MEAN CORPUSCULAR HGB CONC 27.1 g/dl (33.0-37.0); MEAN PLATELET VOLUME 8.9 fl (9.6-12.3); MONO % 6.8 % (3.0-9.0); NEUT # 9.9 10*3/uL (2.3-7.9); NEUT % 68.9 % (47.0-73.0); PLATELET COUNT AUTOMATED 491 10*3/uL (130-400); RED BLOOD COUNT 4.67 10*6/uL (4.50-5.90); RED CELL DISTRI WIDTH 19.4 % (0-14.5); WHITE BLOOD COUNT 14.4 10*3/uL (4.8-10.8)
[2020-12-21 12:42] LABS: ALKALINE PHOSPHATASE 134 U/L (45-117); BUN 13 mg/dl (7-24); CHLORIDE 100 mmol/L (98-107); CREATININE 1.02 mg/dL (0.70-1.30); POTASSIUM 4.3 mmol/L (3.5-5.1); SGOT/AST 21 IU/L (3-35); SGPT/ALT 28 U/L (12-78); SODIUM 133 mmol/L (136-145); TOTAL PROTEIN 7.6 gm/dL (6.4-8.2)
[2020-12-21 16:00] VITALS: BP 126/70
[2020-12-21 20:00] VITALS: BP 112/60
[2020-12-22] VITALS (10 sets, daily range): BP systolic 113–129; BP diastolic 63–81
[2020-12-22 06:20] LABS: BASO # 0.1 10*3/uL (0.0-0.1); BASO % 0.9 % (0.0-1.0); EOS # 0.7 10*3/uL (0.0-0.4); EOS % 4.2 % (1.0-4.0); HEMATOCRIT 33.9 % (42.0-52.0); LYMPH # 3.5 10*3/uL (1.3-4.4); MEAN CELL VOLUME 65.7 fl (80.0-94.0); MEAN CORPUSCULAR HGB 17.6 pg (27.0-31.0); MEAN CORPUSCULAR HGB CONC 26.8 g/dl (33.0-37.0); MEAN PLATELET VOLUME 8.9 fl (9.6-12.3); MONO # 1.1 10*3/uL (0.1-1.0); NEUT # 9.8 10*3/uL (2.3-7.9); NEUT % 63.9 % (47.0-73.0); PLATELET COUNT AUTOMATED 548 10*3/uL (130-400); RED BLOOD COUNT 5.16 10*6/uL (4.50-5.90); RED CELL DISTRI WIDTH 19.9 % (0-14.5); WHITE BLOOD COUNT 15.3 10*3/uL (4.8-10.8)
[2020-12-22 06:32] LABS: ALBUMIN 3.1 gm/dl (3.1-4.5); ALKALINE PHOSPHATASE 136 U/L (45-117); BUN 14 mg/dl (7-24); CHLORIDE 100 mmol/L (98-107); POTASSIUM 4.2 mmol/L (3.5-5.1); SGOT/AST 15 IU/L (3-35); SGPT/ALT 27 U/L (12-78); SODIUM 133 mmol/L (136-145); TOTAL PROTEIN 7.6 gm/dL (6.4-8.2)
[2020-12-23 04:00] VITALS: BP 122/71
[2020-12-23 06:16] LABS: ALKALINE PHOSPHATASE 127 U/L (45-117); BUN 17 mg/dl (7-24); CHLORIDE 101 mmol/L (98-107); POTASSIUM 4.3 mmol/L (3.5-5.1); SGOT/AST 8 IU/L (3-35); SGPT/ALT 24 U/L (12-78); SODIUM 135 mmol/L (136-145); TOTAL PROTEIN 7.5 gm/dL (6.4-8.2)
[2020-12-23 06:20] LABS: BASO # 0.1 10*3/uL (0.0-0.1); BASO % 0.7 % (0.0-1.0); EOS # 0.7 10*3/uL (0.0-0.4); EOS % 4.7 % (1.0-4.0); HEMATOCRIT 31.3 % (42.0-52.0); LYMPH # 3.8 10*3/uL (1.3-4.4); LYMPH % 25.1 % (27.0-41.0); MEAN CELL VOLUME 66.5 fl (80.0-94.0); MEAN CORPUSCULAR HGB CONC 27.2 g/dl (33.0-37.0); MEAN PLATELET VOLUME 9.3 fl (9.6-12.3); MONO # 1.1 10*3/uL (0.1-1.0); MONO % 7.3 % (3.0-9.0); NEUT # 9.2 10*3/uL (2.3-7.9); NEUT % 61.3 % (47.0-73.0); PLATELET COUNT AUTOMATED 493 10*3/uL (130-400); RED BLOOD COUNT 4.71 10*6/uL (4.50-5.90); RED CELL DISTRI WIDTH 19.7 % (0-14.5); WHITE BLOOD COUNT 15.1 10*3/uL (4.8-10.8)
[2020-12-23 12:00] VITALS: BP 126/64
[2020-12-23 14:08] LABS: ACID FAST SPEC PROCESSING Concentration (.)
[2020-12-23 16:00] VITALS: BP 116/58
[2020-12-23 20:00] VITALS: BP 118/66
[2020-12-24] VITALS: BP 120/66
[2020-12-24 06:07] LABS: ALBUMIN 3.2 gm/dl (3.1-4.5); ALKALINE PHOSPHATASE 134 U/L (45-117); BUN 15 mg/dl (7-24); CHLORIDE 103 mmol/L (98-107); CREATININE 0.79 mg/dL (0.70-1.30); POTASSIUM 4.3 mmol/L (3.5-5.1); SGOT/AST 6 IU/L (3-35); SGPT/ALT 21 U/L (12-78); SODIUM 137 mmol/L (136-145); TOTAL PROTEIN 7.6 gm/dL (6.4-8.2)
[2020-12-24 06:34] LABS: BASO # 0.1 10*3/uL (0.0-0.1); BASO % 0.9 % (0.0-1.0); EOS # 0.7 10*3/uL (0.0-0.4); EOS % 6.6 % (1.0-4.0); HEMATOCRIT 30.4 % (42.0-52.0); LYMPH # 3.2 10*3/uL (1.3-4.4); LYMPH % 28.1 % (27.0-41.0); MEAN CORPUSCULAR HGB 18.3 pg (27.0-31.0); MEAN CORPUSCULAR HGB CONC 27.3 g/dl (33.0-37.0); MEAN PLATELET VOLUME 9.2 fl (9.6-12.3); MONO # 0.7 10*3/uL (0.1-1.0); MONO % 6.4 % (3.0-9.0); NEUT # 6.4 10*3/uL (2.3-7.9); PLATELET COUNT AUTOMATED 495 10*3/uL (130-400); RED BLOOD COUNT 4.54 10*6/uL (4.50-5.90); RED CELL DISTRI WIDTH 19.7 % (0-14.5); WHITE BLOOD COUNT 11.2 10*3/uL (4.8-10.8)
[2020-12-24 08:00] VITALS: BP 122/73
[2020-12-24 12:00] VITALS: BP 113/69
[2020-12-24 16:00] VITALS: BP 118/72
[2020-12-24 20:00] VITALS: BP 122/60
[2020-12-25] VITALS: BP 135/75
[2020-12-25 04:00] VITALS: BP 135/75
[2020-12-25] MEDS ORDERED: SEPTDS PO (08:01)
[2020-12-25] MEDS ORDERED: AMOX-CLAV600 MG/5 M PO (08:01)
== END 2020-12-25 11:00 | disposition home or self-care (01) | DRG 871 ==
LOC: ED 06:37 → EDHOLD 08:05 → 4E 08:05
PROVIDERS: Emergency Medicine; Internal Medicine Critical Care Medicine; ADMIT Internal Medicine; ATTEND Internal Medicine
PROC: 0B928ZZ Drainage of Carina, Via Natural or Artificial Opening Endoscopic (ICD-10-PCS; principal; 2020-12-22)
PROC: 0B988ZZ Drainage of Left Upper Lobe Bronchus, Via Natural or Artificial Opening Endoscopic (ICD-10-PCS; 2020-12-22)
PROC: 0B958ZZ Drainage of Right Middle Lobe Bronchus, Via Natural or Artificial Opening Endoscopic (ICD-10-PCS; 2020-12-22)
PROC: 0B968ZZ Drainage of Right Lower Lobe Bronchus, Via Natural or Artificial Opening Endoscopic (ICD-10-PCS; 2020-12-22)
PROC: 0B998ZZ Drainage of Lingula Bronchus, Via Natural or Artificial Opening Endoscopic (ICD-10-PCS; 2020-12-22)
PROC: 0B968ZZ Drainage of Right Lower Lobe Bronchus, Via Natural or Artificial Opening Endoscopic (ICD-10-PCS; 2020-12-22)
PROC: 0B918ZZ Drainage of Trachea, Via Natural or Artificial Opening Endoscopic (ICD-10-PCS; 2020-12-22)
PROC: 0B958ZZ Drainage of Right Middle Lobe Bronchus, Via Natural or Artificial Opening Endoscopic (ICD-10-PCS; 2020-12-22)
DX: A41.9 Sepsis, unspecified organism (principal); J18.9 Pneumonia, unspecified organism; J96.20 Acute and chronic respiratory failure, unspecified whether with hypoxia or hypercapnia; I50.31 Acute diastolic (congestive) heart failure; D68.2 Hereditary deficiency of other clotting factors; J45.41 Moderate persistent asthma with (acute) exacerbation; J44.0 Chronic obstructive pulmonary disease with (acute) lower respiratory infection; D68.51 Activated protein C resistance; G25.81 Restless legs syndrome; R33.9 Retention of urine, unspecified; Z20.822 Contact with and (suspected) exposure to COVID-19; I11.0 Hypertensive heart disease with heart failure; G89.4 Chronic pain syndrome; E11.9 Type 2 diabetes mellitus without complications; B37.9 Candidiasis, unspecified; D64.9 Anemia, unspecified; G47.33 Obstructive sleep apnea (adult) (pediatric); N40.1 Benign prostatic hyperplasia with lower urinary tract symptoms; G44.89 Other headache syndrome; R33.8 Other retention of urine; G43.909 Migraine, unspecified, not intractable, without status migrainosus; R65.20 Severe sepsis without septic shock; K21.9 Gastro-esophageal reflux disease without esophagitis; F41.1 Generalized anxiety disorder; E66.01 Morbid (severe) obesity due to excess calories; F31.9 Bipolar disorder, unspecified; Z91.19 Patient's noncompliance with other medical treatment and regimen; Z88.1 Allergy status to other antibiotic agents; Z88.6 Allergy status to analgesic agent; Z86.718 Personal history of other venous thrombosis and embolism; Z88.8 Allergy status to other drugs, medicaments and biological substances; Z88.5 Allergy status to narcotic agent; Z82.5 Family history of asthma and other chronic lower respiratory diseases; Z68.36 Body mass index [BMI] 36.0-36.9, adult

== ENCOUNTER 2021-01-16 17:57 | Emergency (ER) | payer OTHER ==
[~2021-01-16] VITALS: Ht 187.9 cm; Wt 132.9 kg
[~2021-01-16 17:57] MED LIST changes: +AMOX-CLAV600 MG/5 M PO; +HYDROXYZINE PAM50 MG PO
[2021-01-16 18:03] VITALS: BP 104/42
[2021-01-16 19:09] LABS: MEAN CELL VOLUME 64.9 fl (80.0-94.0); MEAN CORPUSCULAR HGB 18.3 pg (27.0-31.0); MEAN CORPUSCULAR HGB CONC 28.3 g/dl (33.0-37.0); MEAN PLATELET VOLUME 9.2 fl (9.6-12.3); PLATELET COUNT AUTOMATED 476 10*3/uL (130-400); RED BLOOD COUNT 4.47 10*6/uL (4.50-5.90); RED CELL DISTRI WIDTH 20.2 % (0-14.5); WHITE BLOOD COUNT 17.8 10*3/uL (4.8-10.8)
[2021-01-16 19:24] LABS: ALBUMIN 3.3 gm/dl (3.1-4.5); ALKALINE PHOSPHATASE 142 U/L (45-117); BUN 29 mg/dl (7-24); CHLORIDE 97 mmol/L (98-107); CREATININE 1.29 mg/dL (0.70-1.30); POTASSIUM 4.2 mmol/L (3.5-5.1); SGOT/AST 10 IU/L (3-35); SGPT/ALT 20 U/L (12-78); SODIUM 131 mmol/L (136-145); TOTAL PROTEIN 7.6 gm/dL (6.4-8.2)
[2021-01-16 19:27] LABS: BASOPHILS 1 % (0-1); TOTAL CELLS COUNTED 100 #CELLS
[2021-01-16 19:28] LABS: MICROCYTOSIS MODERATE; PLATELET SUFFICIENCY HIGH (NORMAL); POLYCHROMASIA SLIGHT
[2021-01-16 20:23] LABS: BILIRUBIN Negative (Negative); BLOOD Trace-Lysed (Negative); CLARITY Clear (Clear); COLOR Yellow (Yellow); GLUCOSE Negative (Negative); KETONE Negative (Negative); LEUKO ESTERASE Trace (Negative); NITRITE Negative (Negative); SPECIFIC GRAVITY 1.015 (1.001-1.030); UROBILINOGEN 0.2 E.U./dl (0.0-1.0)
[2021-01-16 20:43] LABS: EPITHELIAL CELLS 0-2; RBC 0-2 rbc/hpf (0-2)
[2021-01-16 20:44] LABS: BACTERIA TRACE; YEAST 2+
== END 2021-01-16 23:45 | disposition home or self-care (01) ==
LOC: ED 17:57
PROVIDERS: Emergency Medicine; Student in an Organized Health Care Education/Training Program
DX: E86.0 Dehydration (principal); Z98.890 Other specified postprocedural states; Z79.899 Other long term (current) drug therapy; Z88.5 Allergy status to narcotic agent; Z88.1 Allergy status to other antibiotic agents; Z88.6 Allergy status to analgesic agent; Z88.8 Allergy status to other drugs, medicaments and biological substances

== ENCOUNTER 2021-01-26 22:29 | Inpatient (IN) | payer OTHER ==
[~2021-01-26] VITALS: Ht 187.9 cm; Wt 86.2 kg
[2021-01-26 22:43] VITALS: BP 105/52
[2021-01-26 23:17] LABS: HEMATOCRIT 30.9 % (42.0-52.0); MEAN CELL VOLUME 66.3 fl (80.0-94.0); MEAN CORPUSCULAR HGB 18.7 pg (27.0-31.0); MEAN CORPUSCULAR HGB CONC 28.2 g/dl (33.0-37.0); MEAN PLATELET VOLUME 9.4 fl (9.6-12.3); RED BLOOD COUNT 4.66 10*6/uL (4.50-5.90); RED CELL DISTRI WIDTH 20.2 % (0-14.5); WHITE BLOOD COUNT 17.1 10*3/uL (4.8-10.8)
[2021-01-26 23:20] VITALS: BP 109/44
[2021-01-26 23:32] LABS: ALBUMIN 2.9 gm/dl (3.1-4.5); BUN 19 mg/dl (7-24); CHLORIDE 98 mmol/L (98-107); CREATININE 1.16 mg/dL (0.70-1.30); POTASSIUM 4.2 mmol/L (3.5-5.1); SGOT/AST 18 IU/L (3-35); SODIUM 130 mmol/L (136-145)
[2021-01-26 23:35] LABS: PLATELET COUNT AUTOMATED 624 10*3/uL (130-400)
[2021-01-26 23:39] LABS: ATYPICAL LYMPHS 1 % (0-0); PLATELET SUFFICIENCY HIGH (NORMAL); TOTAL CELLS COUNTED 100 #CELLS
[2021-01-26 23:40] LABS: MICROCYTOSIS SLIGHT
[2021-01-26 23:42] LABS: TROPONIN I < 0.015 ng/ml (<0.045)
[2021-01-26 23:57] LABS: ALKALINE PHOSPHATASE 163 U/L (45-117)
[2021-01-27 00:08] LABS: SGPT/ALT 28 U/L (12-78)
[2021-01-27 01:21] VITALS: BP 113/53
[2021-01-27 01:30] VITALS: BP 140/59
[2021-01-27] MEDS ORDERED: BUMETANIDE2 MG PO (02:19)
[2021-01-27] MEDS ORDERED: REQUIP2 MG PO (02:20)
[2021-01-27] MEDS ORDERED: ATROVENT HFA12.9 GM INH (02:21)
[2021-01-27] MEDS ORDERED: ZANAFLEX4 M1 PO (02:26)
[2021-01-27 08:00] VITALS: BP 142/77
[2021-01-27 12:00] VITALS: BP 140/70
[2021-01-27 16:00] VITALS: BP 128/72
[2021-01-27 20:00] VITALS: BP 117/60
[2021-01-28] VITALS: BP 140/76
[2021-01-28 06:08] LABS: ALBUMIN 3.6 gm/dl (3.1-4.5); ALKALINE PHOSPHATASE 150 U/L (45-117); BUN 18 mg/dl (7-24); CHLORIDE 99 mmol/L (98-107); CREATININE 1.08 mg/dL (0.70-1.30); POTASSIUM 3.9 mmol/L (3.5-5.1); SGOT/AST 11 IU/L (3-35); SGPT/ALT 24 U/L (12-78); SODIUM 133 mmol/L (136-145); TOTAL PROTEIN 8.3 gm/dL (6.4-8.2)
[2021-01-28 06:13] LABS: MEAN CELL VOLUME 65.9 fl (80.0-94.0); MEAN CORPUSCULAR HGB 17.7 pg (27.0-31.0); MEAN CORPUSCULAR HGB CONC 26.9 g/dl (33.0-37.0); MEAN PLATELET VOLUME 9.1 fl (9.6-12.3); PLATELET COUNT AUTOMATED 715 10*3/uL (130-400); RED BLOOD COUNT 5.31 10*6/uL (4.50-5.90); RED CELL DISTRI WIDTH 20.9 % (0-14.5); WHITE BLOOD COUNT 27.1 10*3/uL (4.8-10.8)
[2021-01-28 06:52] LABS: OVALOCYTES FEW; POLYCHROMASIA SLIGHT; TOTAL CELLS COUNTED 100 #CELLS
[2021-01-28 06:53] LABS: MICROCYTOSIS MODERATE; PLATELET SUFFICIENCY HIGH (NORMAL)
[2021-01-28 06:54] LABS: SCHISTOCYTES FEW
[2021-01-28 08:08] VITALS: BP 143/81
[2021-01-28 11:50] VITALS: BP 119/64
[2021-01-28 16:01] LABS: BILIRUBIN Negative (Negative); BLOOD Trace-Lysed (Negative); CLARITY Clear (Clear); COLOR Yellow (Yellow); GLUCOSE Negative (Negative); KETONE Negative (Negative); LEUKO ESTERASE Trace (Negative); NITRITE Negative (Negative); UROBILINOGEN 0.2 E.U./dl (0.0-1.0)
[2021-01-28 16:10] VITALS: BP 152/72
[2021-01-28 16:22] LABS: BACTERIA TRACE; EPITHELIAL CELLS 0-2; HYALINE CAST 0-2; WBC 21-30 wbc/hpf (0-5); YEAST 2+
[2021-01-28 20:00] VITALS: BP 126/51
[2021-01-29] VITALS: BP 134/69
[2021-01-29 06:58] LABS: BASO # 0.1 10*3/uL (0.0-0.1); BASO % 0.3 % (0.0-1.0); EOS # 0.3 10*3/uL (0.0-0.4); EOS % 1.6 % (1.0-4.0); HEMATOCRIT 31.3 % (42.0-52.0); LYMPH # 2.5 10*3/uL (1.3-4.4); LYMPH % 14.8 % (27.0-41.0); MEAN CORPUSCULAR HGB 17.6 pg (27.0-31.0); MEAN CORPUSCULAR HGB CONC 27.5 g/dl (33.0-37.0); MEAN PLATELET VOLUME 9.1 fl (9.6-12.3); MONO # 1.5 10*3/uL (0.1-1.0); MONO % 8.5 % (3.0-9.0); NEUT # 12.5 10*3/uL (2.3-7.9); NEUT % 73.6 % (47.0-73.0); RED BLOOD COUNT 4.89 10*6/uL (4.50-5.90); RED CELL DISTRI WIDTH 20.1 % (0-14.5)
[2021-01-29 06:59] LABS: ALBUMIN 3.1 gm/dl (3.1-4.5); ALKALINE PHOSPHATASE 137 U/L (45-117); BUN 13 mg/dl (7-24); CHLORIDE 103 mmol/L (98-107); PLATELET COUNT AUTOMATED 488 10*3/uL (130-400); POTASSIUM 3.7 mmol/L (3.5-5.1); SGOT/AST 11 IU/L (3-35); SGPT/ALT 23 U/L (12-78); SODIUM 135 mmol/L (136-145); TOTAL PROTEIN 7.3 gm/dL (6.4-8.2)
[2021-01-29 08:00] VITALS: BP 151/63
[2021-01-29 12:00] VITALS: BP 133/55
[2021-01-29 16:00] VITALS: BP 123/67
[2021-01-29 20:00] VITALS: BP 129/79
[2021-01-30] VITALS: BP 108/60
[2021-01-30 06:07] LABS: HEMATOCRIT 32.4 % (42.0-52.0); MEAN CELL VOLUME 64.8 fl (80.0-94.0); MEAN CORPUSCULAR HGB CONC 27.8 g/dl (33.0-37.0); MEAN PLATELET VOLUME 9.1 fl (9.6-12.3); PLATELET COUNT AUTOMATED 534 10*3/uL (130-400); RED CELL DISTRI WIDTH 20.7 % (0-14.5); WHITE BLOOD COUNT 15.8 10*3/uL (4.8-10.8)
[2021-01-30 06:25] LABS: ALBUMIN 3.2 gm/dl (3.1-4.5); BUN 12 mg/dl (7-24); CHLORIDE 101 mmol/L (98-107); CREATININE 0.94 mg/dL (0.70-1.30); POTASSIUM 3.6 mmol/L (3.5-5.1); SGOT/AST 12 IU/L (3-35); SGPT/ALT 25 U/L (12-78); SODIUM 134 mmol/L (136-145)
[2021-01-30 06:26] LABS: ALKALINE PHOSPHATASE 159 U/L (45-117); TOTAL PROTEIN 7.6 gm/dL (6.4-8.2)
[2021-01-30 06:35] LABS: MICROCYTOSIS MODERATE; PLATELET SUFFICIENCY HIGH (NORMAL); TOTAL CELLS COUNTED 100 #CELLS
[2021-01-30 06:36] LABS: OVALOCYTES FEW
[2021-01-30 08:00] VITALS: BP 123/58
[2021-01-30 12:00] VITALS: BP 116/65
[2021-01-30 16:00] VITALS: BP 116/51
[2021-01-31] VITALS: BP 128/60
[2021-01-31 08:00] VITALS: BP 136/68
[2021-01-31 11:38] VITALS: BP 124/60
[2021-01-31 16:11] VITALS: BP 130/59
== END 2021-01-31 16:34 | disposition home or self-care (01) | DRG 190 ==
LOC: ED 22:29 → 5E 01-27 01:02 → EDHOLD 01-27 01:02 → 5E 01-27 01:27
PROVIDERS: Emergency Medicine; Internal Medicine Critical Care Medicine; ADMIT Internal Medicine; ATTEND Internal Medicine
PROC: 5A09357 Assistance with Respiratory Ventilation, Less than 24 Consecutive Hours, Continuous Positive Airway Pressure (ICD-10-PCS; principal; 2021-01-28)
PROC: 5A09357 Assistance with Respiratory Ventilation, Less than 24 Consecutive Hours, Continuous Positive Airway Pressure (ICD-10-PCS; 2021-01-29)
PROC: 5A09357 Assistance with Respiratory Ventilation, Less than 24 Consecutive Hours, Continuous Positive Airway Pressure (ICD-10-PCS; 2021-01-31)
DX: J44.1 Chronic obstructive pulmonary disease with (acute) exacerbation (principal); J96.20 Acute and chronic respiratory failure, unspecified whether with hypoxia or hypercapnia; J45.41 Moderate persistent asthma with (acute) exacerbation; E87.2 Acidosis; D68.51 Activated protein C resistance; D68.9 Coagulation defect, unspecified; I50.42 Chronic combined systolic (congestive) and diastolic (congestive) heart failure; F11.20 Opioid dependence, uncomplicated; J20.9 Acute bronchitis, unspecified; J44.0 Chronic obstructive pulmonary disease with (acute) lower respiratory infection; E11.42 Type 2 diabetes mellitus with diabetic polyneuropathy; I11.0 Hypertensive heart disease with heart failure; E11.65 Type 2 diabetes mellitus with hyperglycemia; G47.33 Obstructive sleep apnea (adult) (pediatric); G25.81 Restless legs syndrome; K21.9 Gastro-esophageal reflux disease without esophagitis; G89.4 Chronic pain syndrome; G43.909 Migraine, unspecified, not intractable, without status migrainosus; E66.01 Morbid (severe) obesity due to excess calories; R33.9 Retention of urine, unspecified; M54.5 Low back pain; D72.829 Elevated white blood cell count, unspecified; M47.816 Spondylosis without myelopathy or radiculopathy, lumbar region; D47.3 Essential (hemorrhagic) thrombocythemia; F31.9 Bipolar disorder, unspecified; T38.0X5A Adverse effect of glucocorticoids and synthetic analogues, initial encounter; Z68.24 Body mass index [BMI] 24.0-24.9, adult; Z95.9 Presence of cardiac and vascular implant and graft, unspecified; Y92.89 Other specified places as the place of occurrence of the external cause; Z85.038 Personal history of other malignant neoplasm of large intestine; Z88.1 Allergy status to other antibiotic agents; Z88.5 Allergy status to narcotic agent; Z88.8 Allergy status to other drugs, medicaments and biological substances; Z82.49 Family history of ischemic heart disease and other diseases of the circulatory system; Z80.8 Family history of malignant neoplasm of other organs or systems; Z83.6 Family history of other diseases of the respiratory system

== ENCOUNTER 2021-02-11 08:49 | Emergency (ER) | payer OTHER ==
[~2021-02-11] VITALS: Wt 2.8 kg
[~2021-02-11 08:49] MED LIST changes: +ATROVENT HFA12.9 GM INH; +REQUIP2 MG PO
[2021-02-11 08:54] VITALS: BP 148/68
[2021-02-11 09:25] LABS: BASO # 0.1 10*3/uL (0.0-0.1); BASO % 0.4 % (0.0-1.0); EOS # 0.4 10*3/uL (0.0-0.4); EOS % 2.2 % (1.0-4.0); LYMPH # 2.4 10*3/uL (1.3-4.4); LYMPH % 14.8 % (27.0-41.0); MEAN CELL VOLUME 66.8 fl (80.0-94.0); MEAN CORPUSCULAR HGB 17.8 pg (27.0-31.0); MEAN CORPUSCULAR HGB CONC 26.7 g/dl (33.0-37.0); MEAN PLATELET VOLUME 8.8 fl (9.6-12.3); MONO # 0.8 10*3/uL (0.1-1.0); NEUT # 12.7 10*3/uL (2.3-7.9); PLATELET COUNT AUTOMATED 438 10*3/uL (130-400); RED BLOOD COUNT 4.49 10*6/uL (4.50-5.90); RED CELL DISTRI WIDTH 20.8 % (0-14.5); WHITE BLOOD COUNT 16.5 10*3/uL (4.8-10.8)
[2021-02-11 09:44] LABS: ALBUMIN 3.2 gm/dl (3.1-4.5); ALKALINE PHOSPHATASE 143 U/L (45-117); BUN 26 mg/dl (7-24); CHLORIDE 101 mmol/L (98-107); POTASSIUM 4.6 mmol/L (3.5-5.1); SGOT/AST 7 IU/L (3-35); SGPT/ALT 21 U/L (12-78); SODIUM 133 mmol/L (136-145); TOTAL PROTEIN 7.4 gm/dL (6.4-8.2)
[2021-02-11 09:45] LABS: TROPONIN I < 0.015 ng/ml (<0.045)
[2021-02-11 10:22] LABS: BILIRUBIN Negative (Negative); BLOOD Negative (Negative); CLARITY Clear (Clear); COLOR Yellow (Yellow); GLUCOSE Trace (Negative); KETONE Negative (Negative); LEUKO ESTERASE 1+ (Negative); NITRITE Negative (Negative); PH 5.5 (4.5-8.0); SPECIFIC GRAVITY 1.015 (1.001-1.030); UROBILINOGEN 0.2 E.U./dl (0.0-1.0)
[2021-02-11 10:33] LABS: WBC 21-30 wbc/hpf (0-5)
[2021-02-11 10:34] LABS: YEAST 2+
[2021-02-11 10:36] LABS: URINE AMPHETAMINES < 1000 (1000ng/ml); URINE BARBITURATES < 200 (200ng/ml); URINE BENZODIAZEPINES < 200 (200ng/ml); URINE CANNABINOIDS (THC) < 50 (50ng/ml); URINE COCAINE < 300 (300ng/ml); URINE METHADONE < 300 (300ng/ml)
[2021-02-11 10:40] LABS: URINE OPIATES > 300 (300ng/ml)
[2021-02-11 10:48] LABS: URINE PHENCYCLIDINE < 25 (25ng/ml)
== END 2021-02-11 11:03 | disposition home or self-care (01) ==
LOC: ED 08:49
PROVIDERS: Family Medicine
DX: R53.83 Other fatigue (principal); B37.9 Candidiasis, unspecified; Z88.8 Allergy status to other drugs, medicaments and biological substances; Z88.5 Allergy status to narcotic agent; Z98.890 Other specified postprocedural states

== ENCOUNTER 2021-03-18 14:20 | Inpatient (IN) | payer OTHER ==
[~2021-03-18] VITALS: Ht 188 cm; Wt 134.9 kg
[2021-03-18 14:42] VITALS: BP 134/75
[2021-03-18 15:16] LABS: BASO # 0.1 10*3/uL (0.0-0.1); BASO % 0.5 % (0.0-1.0); EOS # 0.1 10*3/uL (0.0-0.4); HEMATOCRIT 33.7 % (42.0-52.0); LYMPH # 3.9 10*3/uL (1.3-4.4); LYMPH % 27.6 % (27.0-41.0); MEAN CELL VOLUME 60.3 fl (80.0-94.0); MEAN CORPUSCULAR HGB 17.9 pg (27.0-31.0); MEAN CORPUSCULAR HGB CONC 29.7 g/dl (33.0-37.0); MEAN PLATELET VOLUME 9.4 fl (9.6-12.3); NEUT # 8.9 10*3/uL (2.3-7.9); NEUT % 63.1 % (47.0-73.0); PLATELET COUNT AUTOMATED 473 10*3/uL (130-400); RED BLOOD COUNT 5.59 10*6/uL (4.50-5.90); RED CELL DISTRI WIDTH 19.9 % (0-14.5); WHITE BLOOD COUNT 14.1 10*3/uL (4.8-10.8)
[2021-03-18 15:34] LABS: ALBUMIN 3.6 gm/dl (3.1-4.5); ALKALINE PHOSPHATASE 201 U/L (45-117); BUN 19 mg/dl (7-24); CHLORIDE 97 mmol/L (98-107); CREATININE 1.27 mg/dL (0.70-1.30); POTASSIUM 3.7 mmol/L (3.5-5.1); SODIUM 123 mmol/L (136-145); TOTAL PROTEIN 7.8 gm/dL (6.4-8.2)
[2021-03-18 15:50] LABS: SGOT/AST 13 IU/L (3-35); SGPT/ALT 22 U/L (12-78); TROPONIN I < 0.015 ng/ml (<0.045)
[2021-03-18 20:37] VITALS: BP 133/84
[2021-03-19] VITALS (7 sets, daily range): BP systolic 112–153; BP diastolic 61–94
[2021-03-19 02:37] LABS: BILIRUBIN Negative (Negative); BLOOD Negative (Negative); CLARITY Clear (Clear); COLOR Yellow (Yellow); GLUCOSE 3+ (Negative); KETONE Trace (Negative); LEUKO ESTERASE Negative (Negative); NITRITE Negative (Negative); PH 5.5 (4.5-8.0); SPECIFIC GRAVITY 1.025 (1.001-1.030); UROBILINOGEN 0.2 E.U./dl (0.0-1.0)
[2021-03-19 02:50] LABS: BACTERIA TRACE; EPITHELIAL CELLS 0-2; RBC 0-2 rbc/hpf (0-2)
[2021-03-19 06:10] LABS: BASO # 0.1 10*3/uL (0.0-0.1); BASO % 0.8 % (0.0-1.0); EOS # 0.3 10*3/uL (0.0-0.4); EOS % 2.5 % (1.0-4.0); LYMPH # 4.3 10*3/uL (1.3-4.4); LYMPH % 35.7 % (27.0-41.0); MEAN CELL VOLUME 63.2 fl (80.0-94.0); MEAN CORPUSCULAR HGB 17.8 pg (27.0-31.0); MEAN CORPUSCULAR HGB CONC 28.2 g/dl (33.0-37.0); MEAN PLATELET VOLUME 9.4 fl (9.6-12.3); MONO # 1.1 10*3/uL (0.1-1.0); MONO % 8.6 % (3.0-9.0); NEUT # 6.3 10*3/uL (2.3-7.9); NEUT % 51.6 % (47.0-73.0); PLATELET COUNT AUTOMATED 425 10*3/uL (130-400); RED BLOOD COUNT 5.22 10*6/uL (4.50-5.90); RED CELL DISTRI WIDTH 19.8 % (0-14.5); WHITE BLOOD COUNT 12.2 10*3/uL (4.8-10.8)
[2021-03-19 06:18] LABS: BUN 19 mg/dl (7-24); CHLORIDE 99 mmol/L (98-107); CREATININE 0.82 mg/dL (0.70-1.30); POTASSIUM 3.8 mmol/L (3.5-5.1); SODIUM 131 mmol/L (136-145)
[2021-03-20] VITALS: BP 107/59
[2021-03-20] MEDS ORDERED: ZANAFLEX4 MG PO (02:57)
[2021-03-20] MEDS ORDERED: VISTARIL50 MG PO (02:58)
[2021-03-20] MEDS ORDERED: ATROVENT HFA12.9 GM INH (02:59)
[2021-03-20] MEDS ORDERED: PROAIR RESPICL90 MCG INH (02:59)
[2021-03-20] MEDS ORDERED: ALBUTEROL2.5 MG/0.5 INH (03:00)
[2021-03-20] MEDS ORDERED: Ipratropium Brom3 ML INH (03:01)
[2021-03-20] MEDS ORDERED: PULMICORT0.5 MG/2 M INH (03:02)
[2021-03-20 08:00] VITALS: BP 127/75
[2021-03-20 12:00] VITALS: BP 112/54
[2021-03-20 16:00] VITALS: BP 115/68
[2021-03-20 20:00] VITALS: BP 136/67
[2021-03-21] VITALS: BP 121/61
[2021-03-21 06:44] LABS: BASO # 0.1 10*3/uL (0.0-0.1); BASO % 0.6 % (0.0-1.0); EOS # 0.3 10*3/uL (0.0-0.4); EOS % 3.5 % (1.0-4.0); HEMATOCRIT 31.9 % (42.0-52.0); LYMPH # 3.3 10*3/uL (1.3-4.4); LYMPH % 34.2 % (27.0-41.0); MEAN CELL VOLUME 64.7 fl (80.0-94.0); MEAN CORPUSCULAR HGB 17.6 pg (27.0-31.0); MEAN CORPUSCULAR HGB CONC 27.3 g/dl (33.0-37.0); MEAN PLATELET VOLUME 9.3 fl (9.6-12.3); MONO # 0.8 10*3/uL (0.1-1.0); MONO % 7.8 % (3.0-9.0); NEUT # 5.1 10*3/uL (2.3-7.9); PLATELET COUNT AUTOMATED 358 10*3/uL (130-400); RED BLOOD COUNT 4.93 10*6/uL (4.50-5.90); RED CELL DISTRI WIDTH 19.9 % (0-14.5); WHITE BLOOD COUNT 9.7 10*3/uL (4.8-10.8)
[2021-03-21 07:20] LABS: ALBUMIN 3.3 gm/dl (3.1-4.5); BUN 15 mg/dl (7-24); CHLORIDE 99 mmol/L (98-107); CREATININE 0.87 mg/dL (0.70-1.30); POTASSIUM 4.2 mmol/L (3.5-5.1); SGOT/AST 11 IU/L (3-35); SODIUM 132 mmol/L (136-145)
[2021-03-21 07:23] LABS: ALKALINE PHOSPHATASE 150 U/L (45-117); SGPT/ALT 25 U/L (12-78); TOTAL PROTEIN 7.1 gm/dL (6.4-8.2)
[2021-03-21 08:00] VITALS: BP 118/67
[2021-03-21 12:00] VITALS: BP 111/58
[2021-03-21 16:00] VITALS: BP 99/57
[2021-03-21 20:00] VITALS: BP 129/62
[2021-03-22] VITALS: BP 127/66
[2021-03-22 05:56] LABS: ALBUMIN 3.1 gm/dl (3.1-4.5); BUN 13 mg/dl (7-24); CHLORIDE 99 mmol/L (98-107); CREATININE 0.83 mg/dL (0.70-1.30); POTASSIUM 4.4 mmol/L (3.5-5.1); SGOT/AST 16 IU/L (3-35); SGPT/ALT 22 U/L (12-78); SODIUM 133 mmol/L (136-145); TOTAL PROTEIN 6.7 gm/dL (6.4-8.2)
[2021-03-22 05:57] LABS: ALKALINE PHOSPHATASE 133 U/L (45-117)
[2021-03-22 06:20] LABS: BASO # 0.1 10*3/uL (0.0-0.1); BASO % 0.7 % (0.0-1.0); EOS # 0.3 10*3/uL (0.0-0.4); EOS % 3.2 % (1.0-4.0); HEMATOCRIT 29.2 % (42.0-52.0); LYMPH # 3.1 10*3/uL (1.3-4.4); LYMPH % 29.9 % (27.0-41.0); MEAN CELL VOLUME 66.1 fl (80.0-94.0); MEAN CORPUSCULAR HGB 17.4 pg (27.0-31.0); MEAN CORPUSCULAR HGB CONC 26.4 g/dl (33.0-37.0); MEAN PLATELET VOLUME 9.6 fl (9.6-12.3); MONO # 0.8 10*3/uL (0.1-1.0); MONO % 7.9 % (3.0-9.0); NEUT % 57.5 % (47.0-73.0); PLATELET COUNT AUTOMATED 340 10*3/uL (130-400); RED BLOOD COUNT 4.42 10*6/uL (4.50-5.90); RED CELL DISTRI WIDTH 19.9 % (0-14.5); WHITE BLOOD COUNT 10.5 10*3/uL (4.8-10.8)
[2021-03-22 07:45] VITALS: BP 108/64
[2021-03-22 08:00] VITALS: BP 122/70
== END 2021-03-22 11:42 | disposition home or self-care (01) | DRG 871 ==
LOC: ED 14:20 → 5E 16:03 → EDHOLD 16:03 → 5E 03-19 18:24
PROVIDERS: Emergency Medicine; Internal Medicine Critical Care Medicine; ADMIT Internal Medicine; ATTEND Internal Medicine
PROC: 5A09357 Assistance with Respiratory Ventilation, Less than 24 Consecutive Hours, Continuous Positive Airway Pressure (ICD-10-PCS; principal; 2021-03-21)
DX: A41.9 Sepsis, unspecified organism (principal); E11.00 Type 2 diabetes mellitus with hyperosmolarity without nonketotic hyperglycemic-hyperosmolar coma (NKHHC); J44.1 Chronic obstructive pulmonary disease with (acute) exacerbation; E87.1 Hypo-osmolality and hyponatremia; D68.51 Activated protein C resistance; F11.20 Opioid dependence, uncomplicated; E87.2 Acidosis; D68.59 Other primary thrombophilia; J45.51 Severe persistent asthma with (acute) exacerbation; J44.0 Chronic obstructive pulmonary disease with (acute) lower respiratory infection; R65.10 Systemic inflammatory response syndrome (SIRS) of non-infectious origin without acute organ dysfunction; J20.9 Acute bronchitis, unspecified; E11.65 Type 2 diabetes mellitus with hyperglycemia; E87.8 Other disorders of electrolyte and fluid balance, not elsewhere classified; M47.816 Spondylosis without myelopathy or radiculopathy, lumbar region; G89.4 Chronic pain syndrome; F31.9 Bipolar disorder, unspecified; E78.2 Mixed hyperlipidemia; E66.9 Obesity, unspecified; I05.9 Rheumatic mitral valve disease, unspecified; I11.0 Hypertensive heart disease with heart failure; I50.9 Heart failure, unspecified; K21.9 Gastro-esophageal reflux disease without esophagitis; G43.909 Migraine, unspecified, not intractable, without status migrainosus; E11.42 Type 2 diabetes mellitus with diabetic polyneuropathy; G47.33 Obstructive sleep apnea (adult) (pediatric); G25.81 Restless legs syndrome; N40.1 Benign prostatic hyperplasia with lower urinary tract symptoms; R33.8 Other retention of urine; F41.1 Generalized anxiety disorder; T38.0X5A Adverse effect of glucocorticoids and synthetic analogues, initial encounter; Z79.01 Long term (current) use of anticoagulants; Z88.5 Allergy status to narcotic agent; Z88.1 Allergy status to other antibiotic agents; Z88.6 Allergy status to analgesic agent; Z88.8 Allergy status to other drugs, medicaments and biological substances; Z87.440 Personal history of urinary (tract) infections; Z86.010 Personal history of colon polyps; Z85.038 Personal history of other malignant neoplasm of large intestine; Z87.01 Personal history of pneumonia (recurrent); Z86.718 Personal history of other venous thrombosis and embolism; Z82.5 Family history of asthma and other chronic lower respiratory diseases; Z82.49 Family history of ischemic heart disease and other diseases of the circulatory system; Z83.3 Family history of diabetes mellitus; Z80.8 Family history of malignant neoplasm of other organs or systems; Z91.11 Patient's noncompliance with dietary regimen; Y92.89 Other specified places as the place of occurrence of the external cause; Z68.36 Body mass index [BMI] 36.0-36.9, adult

== ENCOUNTER → 2021-04-01 | Outpatient (CLI) | payer OTHER ==
[~2021-04-01] MED LIST changes: +ALBUTEROL2.5 MG/0.5 INH; +PROAIR RESPICL90 MCG INH; +PULMICORT0.5 MG/2 M INH; +VISTARIL50 MG PO; +ZANAFLEX4 MG PO
[2021-04-01 13:43] LABS: HEMATOCRIT 36.7 % (42.0-52.0); MEAN CELL VOLUME 62.5 fl (80.0-94.0); MEAN CORPUSCULAR HGB 17.4 pg (27.0-31.0); MEAN CORPUSCULAR HGB CONC 27.8 g/dl (33.0-37.0); MEAN PLATELET VOLUME 9.3 fl (9.6-12.3); PLATELET COUNT AUTOMATED 530 10*3/uL (130-400); RED BLOOD COUNT 5.87 10*6/uL (4.50-5.90); RED CELL DISTRI WIDTH 20.4 % (0-14.5); WHITE BLOOD COUNT 14.3 10*3/uL (4.8-10.8)
[2021-04-01 13:56] LABS: MICROCYTOSIS MODERATE; PLATELET SUFFICIENCY HIGH (NORMAL); TOTAL CELLS COUNTED 100 #CELLS
[2021-04-01 13:57] LABS: ALKALINE PHOSPHATASE 212 U/L (45-117); BUN 17 mg/dl (7-24); CHLORIDE 88 mmol/L (98-107); CHOLESTEROL 213 mg/dL (<200); CREATININE 1.12 mg/dL (0.70-1.30); FREE T4 0.98 ng/dl (0.76-1.46); POTASSIUM 4.5 mmol/L (3.5-5.1); SGOT/AST 8 IU/L (3-35); SGPT/ALT 24 U/L (12-78); SODIUM 127 mmol/L (136-145); TOTAL PROTEIN 8.3 gm/dL (6.4-8.2)
[2021-04-01 14:06] LABS: TRIGLYCERIDES 1126 mg/dl (<150)
[2021-04-01 14:14] LABS: VITAMIN D, 25-HYDROXY 6.9 ng/mL (30-100)
[2021-04-02 09:07] LABS: CREATININE,URINE 17.7 mg/dL (Not Estab.)
== END | disposition home or self-care (01) ==
LOC: LAB 13:15
PROVIDERS: ATTEND Internal Medicine
DX: E11.40 Type 2 diabetes mellitus with diabetic neuropathy, unspecified (principal); E11.65 Type 2 diabetes mellitus with hyperglycemia; E03.9 Hypothyroidism, unspecified; R53.81 Other malaise; R79.89 Other specified abnormal findings of blood chemistry; E55.9 Vitamin D deficiency, unspecified; D51.9 Vitamin B12 deficiency anemia, unspecified; D52.9 Folate deficiency anemia, unspecified; Z13.0 Encounter for screening for diseases of the blood and blood-forming organs and certain disorders involving the immune mechanism; Z13.21 Encounter for screening for nutritional disorder; Z13.220 Encounter for screening for lipoid disorders; Z13.228 Encounter for screening for other metabolic disorders; Z13.6 Encounter for screening for cardiovascular disorders; Z13.89 Encounter for screening for other disorder

== ENCOUNTER → 2021-05-17 | Outpatient (CLI) | payer OTHER | END | disposition home or self-care (01) | LOC: RAD 10:33 | PROVIDERS: ATTEND Orthopaedic Surgery | DX: M25.512 Pain in left shoulder (principal) ==

== ENCOUNTER 2021-05-27 20:34 | Emergency (ER) | payer OTHER ==
[2021-05-27 22:11] LABS: HEMATOCRIT 38.2 % (42.0-52.0); MEAN CORPUSCULAR HGB 17.9 pg (27.0-31.0); MEAN PLATELET VOLUME 9.7 fl (9.6-12.3); PLATELET COUNT AUTOMATED 438 10*3/uL (130-400); RED BLOOD COUNT 5.97 10*6/uL (4.50-5.90); RED CELL DISTRI WIDTH 21.7 % (0-14.5); WHITE BLOOD COUNT 18.7 10*3/uL (4.8-10.8)
[2021-05-27 22:23] LABS: ACT PARTIAL THROMBO TIME 26.8 SECONDS (20.0-32.1); INTERNATIONAL NORM RATIO 0.9 (2.0-3.5)
[2021-05-27 22:27] LABS: ALBUMIN 3.1 gm/dl (3.1-4.5); ALKALINE PHOSPHATASE 197 U/L (45-117); BUN 11 mg/dl (7-24); CHLORIDE 87 mmol/L (98-107); CREATININE 1.38 mg/dL (0.70-1.30); LIPASE 210 U/L (73-393); POTASSIUM 4.1 mmol/L (3.5-5.1); SGOT/AST 13 IU/L (3-35); SGPT/ALT 22 U/L (12-78); SODIUM 121 mmol/L (136-145); TOTAL PROTEIN 7.7 gm/dL (6.4-8.2)
[2021-05-27 22:30] LABS: PLATELET SUFFICIENCY NORMAL (NORMAL); TOTAL CELLS COUNTED 100 #CELLS
[2021-05-27 22:38] LABS: TROPONIN I < 0.015 ng/ml (<0.045)
[2021-05-28 03:30] LABS: BILIRUBIN Negative (Negative); BLOOD 1+ (Negative); CLARITY Clear (Clear); COLOR Yellow (Yellow); GLUCOSE 3+ (Negative); KETONE 1+ (Negative); LEUKO ESTERASE Negative (Negative); NITRITE Negative (Negative); PH 5.5 (4.5-8.0); SPECIFIC GRAVITY >= 1.030 (1.001-1.030); UROBILINOGEN 0.2 E.U./dl (0.0-1.0)
[2021-05-28 03:37] VITALS: BP 98/59
[2021-05-28 03:37] LABS: YEAST 2+
== END 2021-05-28 04:59 | disposition short-term general hospital (02) ==
LOC: ED 20:34
PROVIDERS: Physician Assistant
DX: K56.609 Unspecified intestinal obstruction, unspecified as to partial versus complete obstruction (principal); Z20.822 Contact with and (suspected) exposure to COVID-19; E87.1 Hypo-osmolality and hyponatremia; D72.829 Elevated white blood cell count, unspecified; Z88.8 Allergy status to other drugs, medicaments and biological substances; Z88.1 Allergy status to other antibiotic agents; Z88.6 Allergy status to analgesic agent; Z79.899 Other long term (current) drug therapy

== ENCOUNTER 2021-06-21 13:44 | Emergency (ER) | payer OTHER ==
[~2021-06-21] VITALS: Ht 187.9 cm; Wt 124.3 kg
[~2021-06-21 13:44] MED LIST changes: +BUMETANIDE1 MG PO; +DILTIAZEM CD240 MG PO; +POTASSIUM CHLO20 MEQ PO
[2021-06-21] MEDS ORDERED: LANTUS SOL100 UNIT/1 SC (13:55)
[2021-06-21 14:04] VITALS: BP 117/79
[2021-06-21 14:24] LABS: BASO # 0.1 10*3/uL (0.0-0.1); BASO % 0.8 % (0.0-1.0); EOS # 0.2 10*3/uL (0.0-0.4); EOS % 2.4 % (1.0-4.0); LYMPH # 3.1 10*3/uL (1.3-4.4); LYMPH % 31.3 % (27.0-41.0); MEAN CELL VOLUME 65.3 fl (80.0-94.0); MEAN CORPUSCULAR HGB 18.2 pg (27.0-31.0); MEAN CORPUSCULAR HGB CONC 27.9 g/dl (33.0-37.0); MEAN PLATELET VOLUME 8.8 fl (9.6-12.3); MONO # 0.9 10*3/uL (0.1-1.0); MONO % 8.9 % (3.0-9.0); NEUT # 5.6 10*3/uL (2.3-7.9); PLATELET COUNT AUTOMATED 479 10*3/uL (130-400); RED BLOOD COUNT 5.21 10*6/uL (4.50-5.90); RED CELL DISTRI WIDTH 20.7 % (0-14.5)
[2021-06-21 14:39] LABS: ALBUMIN 3.4 gm/dl (3.1-4.5); ALKALINE PHOSPHATASE 151 U/L (45-117); BUN 15 mg/dl (7-24); CHLORIDE 100 mmol/L (98-107); CREATININE 0.92 mg/dL (0.70-1.30); POTASSIUM 3.9 mmol/L (3.5-5.1); SGOT/AST 5 IU/L (3-35); SGPT/ALT 21 U/L (12-78); SODIUM 132 mmol/L (136-145); TOTAL PROTEIN 7.6 gm/dL (6.4-8.2)
[2021-06-21 14:43] LABS: TROPONIN I < 0.015 ng/ml (<0.045)
== END 2021-06-21 16:07 | disposition home or self-care (01) ==
LOC: ED 13:44
PROVIDERS: Emergency Medicine
DX: R55 Syncope and collapse (principal); R42 Dizziness and giddiness; R11.0 Nausea; R00.2 Palpitations; Z88.1 Allergy status to other antibiotic agents; Z88.6 Allergy status to analgesic agent; Z88.8 Allergy status to other drugs, medicaments and biological substances; Z79.899 Other long term (current) drug therapy

== ENCOUNTER 2021-06-30 20:59 | Emergency (ER) | payer OTHER ==
[~2021-06-30] VITALS: Ht 187.9 cm; Wt 124.7 kg
[2021-06-30 21:48] LABS: HEMATOCRIT 32.9 % (42.0-52.0); MEAN CELL VOLUME 65.8 fl (80.0-94.0); MEAN CORPUSCULAR HGB 18.6 pg (27.0-31.0); MEAN CORPUSCULAR HGB CONC 28.3 g/dl (33.0-37.0); MEAN PLATELET VOLUME 9.1 fl (9.6-12.3); PLATELET COUNT AUTOMATED 519 10*3/uL (130-400); RED CELL DISTRI WIDTH 19.9 % (0-14.5); WHITE BLOOD COUNT 13.9 10*3/uL (4.8-10.8)
[2021-06-30 22:15] LABS: ALBUMIN 3.2 gm/dl (3.1-4.5); ALKALINE PHOSPHATASE 135 U/L (45-117); BUN 19 mg/dl (7-24); CHLORIDE 100 mmol/L (98-107); CREATININE 1.26 mg/dL (0.70-1.30); LIPASE 222 U/L (73-393); POTASSIUM 4.1 mmol/L (3.5-5.1); SGOT/AST 15 IU/L (3-35); SGPT/ALT 25 U/L (12-78); SODIUM 133 mmol/L (136-145)
[2021-06-30 22:16] LABS: ATYPICAL LYMPHS 4 % (0-0); BASOPHILS 2 % (0-1); TOTAL CELLS COUNTED 100 #CELLS
[2021-06-30 22:17] LABS: MICROCYTOSIS SLIGHT; OVALOCYTES FEW; PLATELET SUFFICIENCY HIGH (NORMAL); TROPONIN I < 0.015 ng/ml (<0.045)
[2021-07-01 04:54] VITALS: BP 132/88
[2021-07-01 05:36] LABS: BILIRUBIN Negative (Negative); BLOOD Negative (Negative); CLARITY Cloudy (Clear); COLOR Yellow (Yellow); GLUCOSE 3+ (Negative); KETONE Negative (Negative); LEUKO ESTERASE Negative (Negative); NITRITE Negative (Negative); SPECIFIC GRAVITY >= 1.030 (1.001-1.030); UROBILINOGEN 0.2 E.U./dl (0.0-1.0)
[2021-07-01 05:47] LABS: YEAST 2+
== END 2021-07-01 08:12 | disposition short-term general hospital (02) ==
LOC: ED 20:59
PROVIDERS: Emergency Medicine
DX: R10.9 Unspecified abdominal pain (principal); R07.9 Chest pain, unspecified; Z88.8 Allergy status to other drugs, medicaments and biological substances; Z88.1 Allergy status to other antibiotic agents; Z88.6 Allergy status to analgesic agent; Z79.899 Other long term (current) drug therapy

== ENCOUNTER 2021-07-10 21:49 | Emergency (ER) | payer OTHER ==
[2021-07-10 23:38] LABS: BASO # 0.1 10*3/uL (0.0-0.1); BASO % 0.6 % (0.0-1.0); EOS # 0.4 10*3/uL (0.0-0.4); EOS % 3.2 % (1.0-4.0); LYMPH # 4.2 10*3/uL (1.3-4.4); LYMPH % 35.5 % (27.0-41.0); MEAN CELL VOLUME 64.5 fl (80.0-94.0); MEAN CORPUSCULAR HGB 18.7 pg (27.0-31.0); MEAN PLATELET VOLUME 9.2 fl (9.6-12.3); MONO % 8.3 % (3.0-9.0); NEUT # 6.2 10*3/uL (2.3-7.9); NEUT % 51.7 % (47.0-73.0); PLATELET COUNT AUTOMATED 399 10*3/uL (130-400); RED BLOOD COUNT 4.65 10*6/uL (4.50-5.90); WHITE BLOOD COUNT 11.9 10*3/uL (4.8-10.8)
[2021-07-10 23:58] LABS: ALBUMIN 3.2 gm/dl (3.1-4.5); ALKALINE PHOSPHATASE 150 U/L (45-117); BUN 19 mg/dl (7-24); CHLORIDE 100 mmol/L (98-107); CREATININE 1.03 mg/dL (0.70-1.30); LIPASE 122 U/L (73-393); POTASSIUM 4.6 mmol/L (3.5-5.1); SGOT/AST 22 IU/L (3-35); SGPT/ALT 28 U/L (12-78); SODIUM 134 mmol/L (136-145); TOTAL PROTEIN 7.4 gm/dL (6.4-8.2)
[2021-07-11 02:05] VITALS: BP 128/76
== END 2021-07-11 02:06 | disposition home or self-care (01) ==
LOC: ED 21:49
PROVIDERS: Emergency Medicine
DX: R10.9 Unspecified abdominal pain (principal); E11.9 Type 2 diabetes mellitus without complications; E78.00 Pure hypercholesterolemia, unspecified; J45.909 Unspecified asthma, uncomplicated; K21.9 Gastro-esophageal reflux disease without esophagitis; E78.9 Disorder of lipoprotein metabolism, unspecified; E66.9 Obesity, unspecified; J44.9 Chronic obstructive pulmonary disease, unspecified; I50.9 Heart failure, unspecified; I11.0 Hypertensive heart disease with heart failure; Z88.8 Allergy status to other drugs, medicaments and biological substances; Z88.1 Allergy status to other antibiotic agents; Z88.6 Allergy status to analgesic agent; Z79.899 Other long term (current) drug therapy

== ENCOUNTER → 2021-07-14 | Outpatient (CLI) | payer OTHER | LOC: WOUNDCARE 07:16 | PROVIDERS: ATTEND Nurse Practitioner Family | DX: E11.622 Type 2 diabetes mellitus with other skin ulcer (principal); L97.212 Non-pressure chronic ulcer of right calf with fat layer exposed; L97.811 Non-pressure chronic ulcer of other part of right lower leg limited to breakdown of skin; E11.628 Type 2 diabetes mellitus with other skin complications; I11.0 Hypertensive heart disease with heart failure; I50.9 Heart failure, unspecified; E78.5 Hyperlipidemia, unspecified; J44.9 Chronic obstructive pulmonary disease, unspecified; I48.91 Unspecified atrial fibrillation; G89.29 Other chronic pain; R51.9 Headache, unspecified; D68.4 Acquired coagulation factor deficiency; F41.9 Anxiety disorder, unspecified; F32.9 Major depressive disorder, single episode, unspecified; Z85.72 Personal history of non-Hodgkin lymphomas; Z85.038 Personal history of other malignant neoplasm of large intestine; Z98.890 Other specified postprocedural states; Z90.49 Acquired absence of other specified parts of digestive tract; Z86.718 Personal history of other venous thrombosis and embolism ==

== ENCOUNTER → 2021-07-28 | Outpatient (CLI) | payer OTHER | LOC: WOUNDCARE 00:55 | PROVIDERS: ATTEND Nurse Practitioner Family | DX: E11.622 Type 2 diabetes mellitus with other skin ulcer (principal); L97.212 Non-pressure chronic ulcer of right calf with fat layer exposed; L97.811 Non-pressure chronic ulcer of other part of right lower leg limited to breakdown of skin; E11.628 Type 2 diabetes mellitus with other skin complications; I10 Essential (primary) hypertension; E78.5 Hyperlipidemia, unspecified; J44.9 Chronic obstructive pulmonary disease, unspecified; I48.91 Unspecified atrial fibrillation; D68.4 Acquired coagulation factor deficiency; Z85.72 Personal history of non-Hodgkin lymphomas ==

== ENCOUNTER 2021-08-08 06:18 | Emergency (ER) | payer OTHER ==
[~2021-08-08] VITALS: Ht 187.9 cm; Wt 122.5 kg
[2021-08-08 06:26] VITALS: BP 133/76
[2021-08-08 07:02] LABS: BASO # 0.1 10*3/uL (0.0-0.1); BASO % 0.8 % (0.0-1.0); EOS # 0.4 10*3/uL (0.0-0.4); EOS % 3.6 % (1.0-4.0); HEMATOCRIT 32.1 % (42.0-52.0); LYMPH # 3.3 10*3/uL (1.3-4.4); MEAN CELL VOLUME 64.3 fl (80.0-94.0); MEAN CORPUSCULAR HGB 17.6 pg (27.0-31.0); MEAN CORPUSCULAR HGB CONC 27.4 g/dl (33.0-37.0); MEAN PLATELET VOLUME 8.9 fl (9.6-12.3); MONO # 0.8 10*3/uL (0.1-1.0); MONO % 8.1 % (3.0-9.0); NEUT # 5.2 10*3/uL (2.3-7.9); NEUT % 52.8 % (47.0-73.0); PLATELET COUNT AUTOMATED 434 10*3/uL (130-400); RED BLOOD COUNT 4.99 10*6/uL (4.50-5.90); RED CELL DISTRI WIDTH 19.3 % (0-14.5); WHITE BLOOD COUNT 9.8 10*3/uL (4.8-10.8)
[2021-08-08 07:17] LABS: ALBUMIN 3.3 gm/dl (3.1-4.5); ALKALINE PHOSPHATASE 126 U/L (45-117); BUN 19 mg/dl (7-24); CHLORIDE 102 mmol/L (98-107); CREATININE 1.01 mg/dL (0.70-1.30); POTASSIUM 4.5 mmol/L (3.5-5.1); SGOT/AST 13 IU/L (3-35); SGPT/ALT 23 U/L (12-78); SODIUM 136 mmol/L (136-145); TOTAL PROTEIN 7.4 gm/dL (6.4-8.2)
[2021-08-08] MEDS ORDERED: PREDNISONE50 MG PO (11:42)
[2021-08-08] MEDS ORDERED: VIBRA-TAB100 MG PO (11:42)
== END 2021-08-08 11:51 | disposition home or self-care (01) ==
LOC: ED 06:18
PROVIDERS: Internal Medicine
DX: J44.1 Chronic obstructive pulmonary disease with (acute) exacerbation (principal); Z88.1 Allergy status to other antibiotic agents; Z88.8 Allergy status to other drugs, medicaments and biological substances; Z88.6 Allergy status to analgesic agent; Z79.899 Other long term (current) drug therapy

== ENCOUNTER 2021-08-22 20:58 | Emergency (ER) | payer OTHER ==
[~2021-08-22 20:58] MED LIST changes: +VIBRA-TAB100 MG PO
[2021-08-22 22:21] LABS: BASO # 0.1 10*3/uL (0.0-0.1); BASO % 0.5 % (0.0-1.0); EOS # 0.4 10*3/uL (0.0-0.4); EOS % 2.3 % (1.0-4.0); HEMATOCRIT 33.7 % (42.0-52.0); LYMPH # 3.8 10*3/uL (1.3-4.4); LYMPH % 23.8 % (27.0-41.0); MEAN CELL VOLUME 64.3 fl (80.0-94.0); MEAN CORPUSCULAR HGB 17.7 pg (27.0-31.0); MEAN CORPUSCULAR HGB CONC 27.6 g/dl (33.0-37.0); MONO # 1.1 10*3/uL (0.1-1.0); MONO % 6.7 % (3.0-9.0); NEUT # 10.6 10*3/uL (2.3-7.9); PLATELET COUNT AUTOMATED 507 10*3/uL (130-400); RED BLOOD COUNT 5.24 10*6/uL (4.50-5.90); RED CELL DISTRI WIDTH 19.3 % (0-14.5); WHITE BLOOD COUNT 16.1 10*3/uL (4.8-10.8)
[2021-08-22 22:37] LABS: ALBUMIN 3.1 gm/dl (3.1-4.5); ALKALINE PHOSPHATASE 139 U/L (45-117); BUN 20 mg/dl (7-24); CHLORIDE 105 mmol/L (98-107); CREATININE 1.02 mg/dL (0.70-1.30); LIPASE 128 U/L (73-393); POTASSIUM 3.9 mmol/L (3.5-5.1); SGPT/ALT 27 U/L (12-78); SODIUM 136 mmol/L (136-145); TOTAL PROTEIN 7.2 gm/dL (6.4-8.2)
[2021-08-22 22:38] LABS: SGOT/AST 13 IU/L (3-35)
[2021-08-23 22:20] VITALS: BP 122/80
== END 2021-08-23 22:50 | disposition short-term general hospital (02) ==
LOC: ED 20:58
PROVIDERS: Internal Medicine
DX: K56.609 Unspecified intestinal obstruction, unspecified as to partial versus complete obstruction (principal); Z88.1 Allergy status to other antibiotic agents; Z88.8 Allergy status to other drugs, medicaments and biological substances; Z79.899 Other long term (current) drug therapy

== ENCOUNTER → 2021-09-01 | Outpatient (CLI) | payer OTHER | LOC: WOUNDCARE 01:29 | PROVIDERS: ATTEND Nurse Practitioner Family | DX: E11.622 Type 2 diabetes mellitus with other skin ulcer (principal); L97.212 Non-pressure chronic ulcer of right calf with fat layer exposed; L97.811 Non-pressure chronic ulcer of other part of right lower leg limited to breakdown of skin; E11.628 Type 2 diabetes mellitus with other skin complications; I10 Essential (primary) hypertension; E78.5 Hyperlipidemia, unspecified; J44.9 Chronic obstructive pulmonary disease, unspecified; I48.91 Unspecified atrial fibrillation; D68.4 Acquired coagulation factor deficiency; Z85.72 Personal history of non-Hodgkin lymphomas ==

== ENCOUNTER → 2021-09-19 | Outpatient (CLI) | payer OTHER ==
[~2021-09-19] MED LIST changes: +DOCUSATE SOD100 MG PO; +ROPINIROLE HYDRO2 M2 PO; +TAMSULOSIN HCL0.4 MG PO; +VENLAFAXINE HC100 MG PO
== END ==
LOC: WOUNDCARE 09-15 00:50
PROVIDERS: ATTEND Nurse Practitioner Family
DX: E11.622 Type 2 diabetes mellitus with other skin ulcer (principal); L97.818 Non-pressure chronic ulcer of other part of right lower leg with other specified severity; L97.218 Non-pressure chronic ulcer of right calf with other specified severity; E11.628 Type 2 diabetes mellitus with other skin complications; I10 Essential (primary) hypertension; E78.5 Hyperlipidemia, unspecified; J44.9 Chronic obstructive pulmonary disease, unspecified; I48.91 Unspecified atrial fibrillation; D68.4 Acquired coagulation factor deficiency; Z85.72 Personal history of non-Hodgkin lymphomas

== ENCOUNTER 2021-09-22 20:01 | Emergency (ER) | payer OTHER ==
[~2021-09-22] VITALS: Ht 187.9 cm; Wt 122.5 kg
[~2021-09-22 20:01] MED LIST changes: -DOCUSATE SOD100 MG PO; -ROPINIROLE HYDRO2 M2 PO; -TAMSULOSIN HCL0.4 MG PO; -VENLAFAXINE HC100 MG PO
[2021-09-22 20:05] VITALS: BP 111/70
[2021-09-22] MEDS ORDERED: TIZANIDINE HCL4 MG PO (20:11)
[2021-09-22] MEDS ORDERED: CELECOXIB200 M1 PO (20:12)
[2021-09-22] MEDS ORDERED: HYDROXYZINE PAM50 MG PO (20:12)
[2021-09-22] MEDS ORDERED: ROPINIROLE HYDRO2 M2 PO (20:13)
[2021-09-22] MEDS ORDERED: TAMSULOSIN HCL0.4 MG PO (20:13)
[2021-09-22] MEDS ORDERED: BREO ELLIPTA 11 EACH INH (20:14)
[2021-09-22] MEDS ORDERED: DOCUSATE SOD100 MG PO (20:15)
[2021-09-22] MEDS ORDERED: OXYCODONE HCL5 MG PO (20:15)
[2021-09-22] MEDS ORDERED: VENLAFAXINE HC100 MG PO (20:17)
[2021-09-22 21:49] LABS: BASO # 0.1 10*3/uL (0.0-0.1); BASO % 0.7 % (0.0-1.0); EOS # 0.3 10*3/uL (0.0-0.4); EOS % 2.8 % (1.0-4.0); HEMATOCRIT 33.2 % (42.0-52.0); LYMPH # 3.6 10*3/uL (1.3-4.4); LYMPH % 31.2 % (27.0-41.0); MEAN CELL VOLUME 63.8 fl (80.0-94.0); MEAN CORPUSCULAR HGB 17.9 pg (27.0-31.0); MEAN PLATELET VOLUME 8.8 fl (9.6-12.3); MONO % 8.3 % (3.0-9.0); NEUT # 6.5 10*3/uL (2.3-7.9); PLATELET COUNT AUTOMATED 433 10*3/uL (130-400); RED CELL DISTRI WIDTH 21.2 % (0-14.5); WHITE BLOOD COUNT 11.5 10*3/uL (4.8-10.8)
[2021-09-22 22:07] LABS: ALBUMIN 3.5 gm/dl (3.1-4.5); ALKALINE PHOSPHATASE 137 U/L (45-117); BUN 15 mg/dl (7-24); CHLORIDE 101 mmol/L (98-107); CREATININE 0.92 mg/dL (0.70-1.30); POTASSIUM 4.9 mmol/L (3.5-5.1); SGOT/AST 14 IU/L (3-35); SGPT/ALT 21 U/L (12-78); SODIUM 134 mmol/L (136-145); TOTAL PROTEIN 7.3 gm/dL (6.4-8.2)
== END 2021-09-23 00:36 | disposition home or self-care (01) ==
LOC: ED 20:01
PROVIDERS: Emergency Medicine
DX: K59.00 Constipation, unspecified (principal); J45.909 Unspecified asthma, uncomplicated; J44.9 Chronic obstructive pulmonary disease, unspecified; K21.9 Gastro-esophageal reflux disease without esophagitis; E78.5 Hyperlipidemia, unspecified; I11.0 Hypertensive heart disease with heart failure; I50.9 Heart failure, unspecified; E66.9 Obesity, unspecified; Z88.8 Allergy status to other drugs, medicaments and biological substances; Z88.1 Allergy status to other antibiotic agents; Z88.6 Allergy status to analgesic agent; Z79.899 Other long term (current) drug therapy; Z98.890 Other specified postprocedural states

== ENCOUNTER 2021-10-06 13:41 | Inpatient (IN) | payer OTHER ==
[~2021-10-06] VITALS: Ht 187.9 cm; Wt 2.8 kg
[~2021-10-06 13:41] MED LIST changes: +DOCUSATE SOD100 MG PO; +ROPINIROLE HYDRO2 M2 PO; +TAMSULOSIN HCL0.4 MG PO; +VENLAFAXINE HC100 MG PO
[2021-10-06 13:47] VITALS: BP 136/72
[2021-10-06 14:13] LABS: BASO # 0.1 10*3/uL (0.0-0.1); BASO % 0.8 % (0.0-1.0); EOS # 0.1 10*3/uL (0.0-0.4); EOS % 1.1 % (1.0-4.0); HEMATOCRIT 36.8 % (42.0-52.0); LYMPH # 3.1 10*3/uL (1.3-4.4); MEAN CELL VOLUME 63.4 fl (80.0-94.0); MEAN CORPUSCULAR HGB 18.8 pg (27.0-31.0); MEAN CORPUSCULAR HGB CONC 29.6 g/dl (33.0-37.0); MEAN PLATELET VOLUME 9.4 fl (9.6-12.3); NEUT # 7.6 10*3/uL (2.3-7.9); NEUT % 63.3 % (47.0-73.0); PLATELET COUNT AUTOMATED 443 10*3/uL (130-400); RED CELL DISTRI WIDTH 21.8 % (0-14.5)
[2021-10-06 14:45] LABS: ALBUMIN 3.8 gm/dl (3.1-4.5); CREATININE 1.69 mg/dL (0.70-1.30); POTASSIUM 4.5 mmol/L (3.5-5.1); TOTAL PROTEIN 8.6 gm/dL (6.4-8.2)
[2021-10-06 14:53] LABS: ACT PARTIAL THROMBO TIME 25.1 SECONDS (20.0-32.1)
[2021-10-06 14:56] LABS: INTERNATIONAL NORM RATIO < 0.9 (2.0-3.5)
[2021-10-06 17:20] LABS: BILIRUBIN Negative (Negative); BLOOD Trace-Lysed (Negative); CLARITY Clear (Clear); COLOR Yellow (Yellow); GLUCOSE 3+ (Negative); KETONE Trace (Negative); LEUKO ESTERASE Negative (Negative); NITRITE Negative (Negative); SPECIFIC GRAVITY 1.025 (1.001-1.030); UROBILINOGEN 0.2 E.U./dl (0.0-1.0)
[2021-10-06 17:30] LABS: BACTERIA 1+; EPITHELIAL CELLS 0-2
[2021-10-06] MEDS ORDERED: DICYCLOMINE HCL10 MG PO (18:31)
[2021-10-06] MEDS ORDERED: BUSPAR15 MG PO (18:33)
[2021-10-06] MEDS ORDERED: ATROVENT HFA12.9 GM INH ×2 (18:38→18:40)
[2021-10-06] MEDS ORDERED: VISTARIL50 MG PO (18:44)
[2021-10-06] MEDS ORDERED: ZANAFLEX4 M1 PO (18:45)
[2021-10-06] MEDS ORDERED: REXULTI2 MG PO (18:45)
[2021-10-06 20:00] VITALS: BP 160/84
[2021-10-07 00:30] VITALS: BP 140/87
[2021-10-07 08:00] VITALS: BP 129/78
[2021-10-07 09:33] LABS: BUN 14 mg/dl (7-24); CHLORIDE 98 mmol/L (98-107); CREATININE 0.89 mg/dL (0.70-1.30); POTASSIUM 4.2 mmol/L (3.5-5.1); SODIUM 129 mmol/L (136-145)
[2021-10-07 12:00] VITALS: BP 125/69
[2021-10-07 16:00] VITALS: BP 126/76
[2021-10-07 20:00] VITALS: BP 118/71
[2021-10-08] VITALS: BP 101/63
[2021-10-08 06:45] LABS: BASO # 0.1 10*3/uL (0.0-0.1); BASO % 0.9 % (0.0-1.0); EOS # 0.4 10*3/uL (0.0-0.4); EOS % 5.8 % (1.0-4.0); HEMATOCRIT 31.3 % (42.0-52.0); LYMPH % 39.3 % (27.0-41.0); MEAN CELL VOLUME 63.7 fl (80.0-94.0); MEAN CORPUSCULAR HGB 18.1 pg (27.0-31.0); MEAN CORPUSCULAR HGB CONC 28.4 g/dl (33.0-37.0); MEAN PLATELET VOLUME 9.5 fl (9.6-12.3); MONO # 0.6 10*3/uL (0.1-1.0); MONO % 7.5 % (3.0-9.0); NEUT # 3.4 10*3/uL (2.3-7.9); NEUT % 45.3 % (47.0-73.0); PLATELET COUNT AUTOMATED 353 10*3/uL (130-400); RED BLOOD COUNT 4.91 10*6/uL (4.50-5.90); RED CELL DISTRI WIDTH 21.6 % (0-14.5); WHITE BLOOD COUNT 7.6 10*3/uL (4.8-10.8)
[2021-10-08 07:10] LABS: BUN 13 mg/dl (7-24); CHLORIDE 100 mmol/L (98-107); CREATININE 0.83 mg/dL (0.70-1.30); POTASSIUM 3.6 mmol/L (3.5-5.1); SODIUM 133 mmol/L (136-145)
[2021-10-08 08:00] VITALS: BP 121/62
[2021-10-08 12:00] VITALS: BP 131/68
[2021-10-08 16:00] VITALS: BP 102/68
[2021-10-08 20:00] VITALS: BP 133/65
[2021-10-09] VITALS: BP 113/49
[2021-10-09 08:00] VITALS: BP 133/65
[2021-10-09 12:00] VITALS: BP 116/61
== END 2021-10-09 16:17 | disposition home or self-care (01) | DRG 641 ==
LOC: ED 13:41 → 4E 15:23 → EDHOLD 15:23 → 4E 17:41
PROVIDERS: Emergency Medicine; ADMIT Internal Medicine; ATTEND Internal Medicine
DX: E86.0 Dehydration (principal); E44.1 Mild protein-calorie malnutrition; F11.20 Opioid dependence, uncomplicated; Z68.1 Body mass index [BMI] 19.9 or less, adult; E87.1 Hypo-osmolality and hyponatremia; Z20.822 Contact with and (suspected) exposure to COVID-19; G25.81 Restless legs syndrome; E78.2 Mixed hyperlipidemia; F31.9 Bipolar disorder, unspecified; G89.4 Chronic pain syndrome; I10 Essential (primary) hypertension; J43.9 Emphysema, unspecified; E11.65 Type 2 diabetes mellitus with hyperglycemia; E87.8 Other disorders of electrolyte and fluid balance, not elsewhere classified; Z88.1 Allergy status to other antibiotic agents; Z88.6 Allergy status to analgesic agent; Z79.01 Long term (current) use of anticoagulants; Z88.8 Allergy status to other drugs, medicaments and biological substances; Z88.5 Allergy status to narcotic agent; Z79.899 Other long term (current) drug therapy

== ENCOUNTER 2021-10-14 12:52 | Emergency (ER) | payer OTHER ==
[~2021-10-14] VITALS: Wt 111.1 kg
[~2021-10-14 12:52] MED LIST changes: +BUSPAR15 MG PO; +DICYCLOMINE HCL10 MG PO
[2021-10-14 14:03] LABS: BASO # 0.1 10*3/uL (0.0-0.1); BASO % 0.6 % (0.0-1.0); EOS # 0.4 10*3/uL (0.0-0.4); EOS % 2.7 % (1.0-4.0); HEMATOCRIT 33.5 % (42.0-52.0); LYMPH # 3.3 10*3/uL (1.3-4.4); LYMPH % 20.3 % (27.0-41.0); MEAN CELL VOLUME 64.9 fl (80.0-94.0); MEAN CORPUSCULAR HGB 17.8 pg (27.0-31.0); MEAN CORPUSCULAR HGB CONC 27.5 g/dl (33.0-37.0); MEAN PLATELET VOLUME 8.7 fl (9.6-12.3); MONO # 1.2 10*3/uL (0.1-1.0); MONO % 7.6 % (3.0-9.0); NEUT # 10.9 10*3/uL (2.3-7.9); NUCLEATED RED BLOOD CELL 0.1 % (0.0-0.0); PLATELET COUNT AUTOMATED 507 10*3/uL (130-400); RED BLOOD COUNT 5.16 10*6/uL (4.50-5.90); RED CELL DISTRI WIDTH 21.9 % (0-14.5); WHITE BLOOD COUNT 16.1 10*3/uL (4.8-10.8)
[2021-10-14 14:18] LABS: ALBUMIN 3.5 gm/dl (3.1-4.5); ALKALINE PHOSPHATASE 132 U/L (45-117); BUN 13 mg/dl (7-24); CHLORIDE 104 mmol/L (98-107); CREATININE 1.03 mg/dL (0.70-1.30); POTASSIUM 4.3 mmol/L (3.5-5.1); SGOT/AST 8 IU/L (3-35); SGPT/ALT 21 U/L (12-78); SODIUM 136 mmol/L (136-145); TOTAL PROTEIN 7.6 gm/dL (6.4-8.2)
[2021-10-14] MEDS ORDERED: VIBRA-TAB100 MG PO ×2 (15:34)
[2021-10-14] MEDS ORDERED: PREDNISONE10 MG PO ×2 (15:34)
[2021-10-18] MEDS ORDERED: HUMALOG100 UNIT/2 SC (04:41)
== END 2021-10-14 15:33 | disposition home or self-care (01) ==
LOC: ED 12:52
PROVIDERS: Hospitalist
DX: J45.909 Unspecified asthma, uncomplicated (principal); J44.9 Chronic obstructive pulmonary disease, unspecified; E11.9 Type 2 diabetes mellitus without complications; G43.909 Migraine, unspecified, not intractable, without status migrainosus; I50.9 Heart failure, unspecified; Z88.1 Allergy status to other antibiotic agents; Z79.899 Other long term (current) drug therapy; Z88.8 Allergy status to other drugs, medicaments and biological substances

== ENCOUNTER 2021-11-01 11:49 | Emergency (ER) | payer OTHER ==
[~2021-11-01] VITALS: Ht 187.9 cm; Wt 122.5 kg
[~2021-11-01 11:49] MED LIST changes: +GLYBURIDE5 MG PO
[2021-11-01 12:20] VITALS: BP 126/64
[2021-11-01 13:39] LABS: BASO # 0.1 10*3/uL (0.0-0.1); BASO % 0.4 % (0.0-1.0); EOS # 0.1 10*3/uL (0.0-0.4); EOS % 0.8 % (1.0-4.0); HEMATOCRIT 31.9 % (42.0-52.0); LYMPH # 3.9 10*3/uL (1.3-4.4); LYMPH % 24.1 % (27.0-41.0); MEAN CELL VOLUME 66.2 fl (80.0-94.0); MEAN CORPUSCULAR HGB 18.7 pg (27.0-31.0); MEAN CORPUSCULAR HGB CONC 28.2 g/dl (33.0-37.0); MEAN PLATELET VOLUME 8.8 fl (9.6-12.3); MONO # 1.4 10*3/uL (0.1-1.0); MONO % 8.4 % (3.0-9.0); NEUT # 10.7 10*3/uL (2.3-7.9); NEUT % 65.6 % (47.0-73.0); PLATELET COUNT AUTOMATED 392 10*3/uL (130-400); RED BLOOD COUNT 4.82 10*6/uL (4.50-5.90); RED CELL DISTRI WIDTH 20.8 % (0-14.5); WHITE BLOOD COUNT 16.3 10*3/uL (4.8-10.8)
[2021-11-01 14:38] LABS: ALKALINE PHOSPHATASE 126 U/L (45-117); BUN 31 mg/dl (7-24); CHLORIDE 102 mmol/L (98-107); CREATININE 1.32 mg/dL (0.70-1.30); POTASSIUM 3.9 mmol/L (3.5-5.1); SGOT/AST 15 IU/L (3-35); SGPT/ALT 28 U/L (12-78); SODIUM 129 mmol/L (136-145); TOTAL PROTEIN 7.1 gm/dL (6.4-8.2)
== END 2021-11-01 15:51 | disposition home or self-care (01) ==
LOC: ED 11:49
PROVIDERS: Emergency Medicine
DX: R06.00 Dyspnea, unspecified (principal); R51.9 Headache, unspecified; R50.9 Fever, unspecified; Z88.8 Allergy status to other drugs, medicaments and biological substances; Z88.1 Allergy status to other antibiotic agents; Z79.899 Other long term (current) drug therapy; Z98.890 Other specified postprocedural states

== ENCOUNTER 2021-11-18 19:30 | Emergency (ER) | payer OTHER ==
[~2021-11-18] VITALS: Wt 122.5 kg
[2021-11-18 19:48] LABS: BASO # 0.1 10*3/uL (0.0-0.1); BASO % 0.5 % (0.0-1.0); EOS % 0.3 % (1.0-4.0); HEMATOCRIT 34.2 % (42.0-52.0); LYMPH # 2.8 10*3/uL (1.3-4.4); LYMPH % 21.1 % (27.0-41.0); MEAN CELL VOLUME 64.4 fl (80.0-94.0); MEAN CORPUSCULAR HGB 17.9 pg (27.0-31.0); MEAN CORPUSCULAR HGB CONC 27.8 g/dl (33.0-37.0); MEAN PLATELET VOLUME 8.6 fl (9.6-12.3); MONO # 0.9 10*3/uL (0.1-1.0); MONO % 6.8 % (3.0-9.0); NEUT # 9.1 10*3/uL (2.3-7.9); NEUT % 70.1 % (47.0-73.0); PLATELET COUNT AUTOMATED 472 10*3/uL (130-400); RED BLOOD COUNT 5.31 10*6/uL (4.50-5.90); RED CELL DISTRI WIDTH 20.3 % (0-14.5); WHITE BLOOD COUNT 13.1 10*3/uL (4.8-10.8)
[2021-11-18 19:59] LABS: INTERNATIONAL NORM RATIO 0.9 (2.0-3.5)
[2021-11-18 20:07] LABS: ALKALINE PHOSPHATASE 136 U/L (45-117); BUN 11 mg/dl (7-24); CHLORIDE 101 mmol/L (98-107); CREATININE 1.36 mg/dL (0.70-1.30); POTASSIUM 3.8 mmol/L (3.5-5.1); SGOT/AST 14 IU/L (3-35); SGPT/ALT 29 U/L (12-78); SODIUM 136 mmol/L (136-145); TOTAL PROTEIN 7.4 gm/dL (6.4-8.2)
[2021-11-18 22:20] VITALS: BP 122/72
== END 2021-11-18 23:39 | disposition home or self-care (01) ==
LOC: ED 19:30
PROVIDERS: Internal Medicine
DX: D72.829 Elevated white blood cell count, unspecified (principal); D64.9 Anemia, unspecified; J44.9 Chronic obstructive pulmonary disease, unspecified; E11.65 Type 2 diabetes mellitus with hyperglycemia; E11.22 Type 2 diabetes mellitus with diabetic chronic kidney disease; N18.31 Chronic kidney disease, stage 3a; G43.909 Migraine, unspecified, not intractable, without status migrainosus; I50.9 Heart failure, unspecified; Z88.8 Allergy status to other drugs, medicaments and biological substances; Z88.1 Allergy status to other antibiotic agents; Z88.6 Allergy status to analgesic agent; Z79.899 Other long term (current) drug therapy; Z98.890 Other specified postprocedural states; Z86.718 Personal history of other venous thrombosis and embolism

== ENCOUNTER 2021-12-02 18:59 | Emergency (ER) | payer OTHER ==
[~2021-12-02] VITALS: Ht 187.9 cm; Wt 126.1 kg
[2021-12-02 19:05] VITALS: BP 152/59
[2021-12-02 20:22] LABS: BASO # 0.1 10*3/uL (0.0-0.1); BASO % 0.7 % (0.0-1.0); EOS # 0.2 10*3/uL (0.0-0.4); EOS % 2.2 % (1.0-4.0); HEMATOCRIT 32.6 % (42.0-52.0); LYMPH # 3.3 10*3/uL (1.3-4.4); LYMPH % 34.5 % (27.0-41.0); MEAN CELL VOLUME 63.7 fl (80.0-94.0); MEAN CORPUSCULAR HGB CONC 28.2 g/dl (33.0-37.0); MEAN PLATELET VOLUME 8.9 fl (9.6-12.3); MONO # 0.8 10*3/uL (0.1-1.0); MONO % 8.8 % (3.0-9.0); NEUT # 5.1 10*3/uL (2.3-7.9); NEUT % 52.9 % (47.0-73.0); PLATELET COUNT AUTOMATED 402 10*3/uL (130-400); RED BLOOD COUNT 5.12 10*6/uL (4.50-5.90); RED CELL DISTRI WIDTH 19.9 % (0-14.5); WHITE BLOOD COUNT 9.6 10*3/uL (4.8-10.8)
[2021-12-02 20:33] LABS: BUN 13 mg/dl (7-24); CHLORIDE 102 mmol/L (98-107); CREATININE 0.92 mg/dL (0.70-1.30); POTASSIUM 4.3 mmol/L (3.5-5.1); SODIUM 137 mmol/L (136-145)
[2021-12-02] MEDS ORDERED: AUGMENTIN 875-875 MG PO (22:16)
== END 2021-12-02 22:33 | disposition home or self-care (01) ==
LOC: ED 18:59
PROVIDERS: Internal Medicine
DX: L03.116 Cellulitis of left lower limb (principal); Z88.1 Allergy status to other antibiotic agents; Z88.8 Allergy status to other drugs, medicaments and biological substances; Z79.899 Other long term (current) drug therapy; Z98.890 Other specified postprocedural states

== ENCOUNTER → 2021-12-14 | Outpatient (CLI) | payer OTHER ==
[2021-12-14 10:42] LABS: BASO # 0.1 10*3/uL (0.0-0.1); BASO % 0.9 % (0.0-1.0); EOS # 0.2 10*3/uL (0.0-0.4); EOS % 2.5 % (1.0-4.0); HEMATOCRIT 33.1 % (42.0-52.0); LYMPH # 3.2 10*3/uL (1.3-4.4); LYMPH % 33.6 % (27.0-41.0); MEAN CELL VOLUME 63.5 fl (80.0-94.0); MEAN CORPUSCULAR HGB 17.9 pg (27.0-31.0); MEAN CORPUSCULAR HGB CONC 28.1 g/dl (33.0-37.0); MEAN PLATELET VOLUME 8.7 fl (9.6-12.3); MONO # 0.8 10*3/uL (0.1-1.0); MONO % 7.8 % (3.0-9.0); NEUT # 5.3 10*3/uL (2.3-7.9); NEUT % 54.6 % (47.0-73.0); PLATELET COUNT AUTOMATED 464 10*3/uL (130-400); RED BLOOD COUNT 5.21 10*6/uL (4.50-5.90); RED CELL DISTRI WIDTH 19.7 % (0-14.5); WHITE BLOOD COUNT 9.6 10*3/uL (4.8-10.8)
[2021-12-14 10:59] LABS: BUN 13 mg/dl (7-24); CHLORIDE 102 mmol/L (98-107); CHOLESTEROL 195 mg/dL (<200); SODIUM 136 mmol/L (136-145)
[2021-12-14 11:03] LABS: ALKALINE PHOSPHATASE 156 U/L (45-117); CREATININE 0.95 mg/dL (0.70-1.30); SGOT/AST 14 IU/L (3-35); SGPT/ALT 26 U/L (12-78); T3 UPTAKE 33 % (31-39); THYROXINE (T4) TOTAL 7.9 ug/dl (4.5-12.1); TOTAL PROTEIN 7.6 gm/dL (6.4-8.2); TRIGLYCERIDES 843 mg/dl (<150)
[2021-12-14 11:45] LABS: VITAMIN D, 25-HYDROXY 11.3 ng/mL (30-100)
== END | disposition home or self-care (01) ==
LOC: LAB 10:22
PROVIDERS: ATTEND Internal Medicine
DX: E11.9 Type 2 diabetes mellitus without complications (principal); Z12.5 Encounter for screening for malignant neoplasm of prostate; E55.9 Vitamin D deficiency, unspecified; E78.2 Mixed hyperlipidemia; I10 Essential (primary) hypertension; D50.9 Iron deficiency anemia, unspecified

== ENCOUNTER 2021-12-24 08:33 | Emergency (ER) | payer OTHER ==
[~2021-12-24] VITALS: Ht 187.9 cm; Wt 122.5 kg
[2021-12-24 09:14] LABS: BASO # 0.1 10*3/uL (0.0-0.1); BASO % 0.3 % (0.0-1.0); EOS # 0.2 10*3/uL (0.0-0.4); EOS % 1.1 % (1.0-4.0); HEMATOCRIT 35.6 % (42.0-52.0); LYMPH # 2.4 10*3/uL (1.3-4.4); LYMPH % 12.5 % (27.0-41.0); MEAN CORPUSCULAR HGB 17.9 pg (27.0-31.0); MEAN CORPUSCULAR HGB CONC 28.9 g/dl (33.0-37.0); MEAN PLATELET VOLUME 9.4 fl (9.6-12.3); MONO # 1.3 10*3/uL (0.1-1.0); MONO % 6.9 % (3.0-9.0); NEUT # 14.8 10*3/uL (2.3-7.9); NEUT % 78.7 % (47.0-73.0); PLATELET COUNT AUTOMATED 361 10*3/uL (130-400); RED BLOOD COUNT 5.74 10*6/uL (4.50-5.90); RED CELL DISTRI WIDTH 20.3 % (0-14.5); WHITE BLOOD COUNT 18.8 10*3/uL (4.8-10.8)
[2021-12-24 09:36] LABS: ALKALINE PHOSPHATASE 196 U/L (45-117); BUN 17 mg/dl (7-24); CHLORIDE 94 mmol/L (98-107); CREATININE 1.16 mg/dL (0.70-1.30); LIPASE 145 U/L (73-393); POTASSIUM 4.1 mmol/L (3.5-5.1); SGOT/AST 13 IU/L (3-35); SGPT/ALT 27 U/L (12-78); SODIUM 129 mmol/L (136-145); TOTAL PROTEIN 8.1 gm/dL (6.4-8.2)
[2021-12-24 11:00] VITALS: BP 122/80
== END 2021-12-24 16:39 | disposition short-term general hospital (02) ==
LOC: ED 08:33
PROVIDERS: Emergency Medicine
DX: K56.609 Unspecified intestinal obstruction, unspecified as to partial versus complete obstruction (principal); Z88.8 Allergy status to other drugs, medicaments and biological substances; Z88.1 Allergy status to other antibiotic agents; Z79.899 Other long term (current) drug therapy; Z98.890 Other specified postprocedural states

== ENCOUNTER 2021-12-27 22:39 | Emergency (ER) | payer OTHER ==
[~2021-12-27] VITALS: Ht 187.9 cm; Wt 127.0 kg
[2021-12-28 00:56] LABS: BASO # 0.1 10*3/uL (0.0-0.1); BASO % 0.4 % (0.0-1.0); EOS # 0.3 10*3/uL (0.0-0.4); EOS % 2.5 % (1.0-4.0); LYMPH # 4.1 10*3/uL (1.3-4.4); LYMPH % 34.4 % (27.0-41.0); MEAN CELL VOLUME 63.6 fl (80.0-94.0); MEAN CORPUSCULAR HGB 17.9 pg (27.0-31.0); MEAN CORPUSCULAR HGB CONC 28.2 g/dl (33.0-37.0); MEAN PLATELET VOLUME 9.1 fl (9.6-12.3); MONO # 0.9 10*3/uL (0.1-1.0); MONO % 7.9 % (3.0-9.0); NEUT # 6.3 10*3/uL (2.3-7.9); NEUT % 53.5 % (47.0-73.0); PLATELET COUNT AUTOMATED 393 10*3/uL (130-400); RED BLOOD COUNT 5.19 10*6/uL (4.50-5.90); RED CELL DISTRI WIDTH 20.9 % (0-14.5); WHITE BLOOD COUNT 11.8 10*3/uL (4.8-10.8)
[2021-12-28 01:11] LABS: ALKALINE PHOSPHATASE 192 U/L (45-117); BUN 11 mg/dl (7-24); CHLORIDE 101 mmol/L (98-107); LIPASE 136 U/L (73-393); POTASSIUM 4.5 mmol/L (3.5-5.1); SGOT/AST 16 IU/L (3-35); SGPT/ALT 32 U/L (12-78); SODIUM 135 mmol/L (136-145); TOTAL PROTEIN 7.3 gm/dL (6.4-8.2)
[2021-12-28 04:07] VITALS: BP 144/82
== END 2021-12-28 04:00 | disposition home or self-care (01) ==
LOC: ED 22:39
PROVIDERS: Emergency Medicine
DX: K66.0 Peritoneal adhesions (postprocedural) (postinfection) (principal); E78.5 Hyperlipidemia, unspecified; J44.9 Chronic obstructive pulmonary disease, unspecified; K21.9 Gastro-esophageal reflux disease without esophagitis; E66.9 Obesity, unspecified; E11.9 Type 2 diabetes mellitus without complications; I50.9 Heart failure, unspecified; I11.0 Hypertensive heart disease with heart failure; Z88.8 Allergy status to other drugs, medicaments and biological substances; Z88.1 Allergy status to other antibiotic agents; Z79.899 Other long term (current) drug therapy; Z98.890 Other specified postprocedural states

== ENCOUNTER → 2022-03-03 | Outpatient (CLI) | payer OTHER ==
[~2022-03-03] MED LIST changes: +Lantus SC
[2022-03-03 12:01] LABS: IRON 16 ug/dL (65-175); TOTAL IRON BINDING CAPACITY 376 ug/dl (250-450)
== END | disposition home or self-care (01) ==
LOC: LAB 11:28
PROVIDERS: ATTEND Internal Medicine
DX: E61.1 Iron deficiency (principal); D50.9 Iron deficiency anemia, unspecified; R62.7 Adult failure to thrive; D68.51 Activated protein C resistance; Z13.0 Encounter for screening for diseases of the blood and blood-forming organs and certain disorders involving the immune mechanism; Z13.1 Encounter for screening for diabetes mellitus; Z13.21 Encounter for screening for nutritional disorder; Z13.220 Encounter for screening for lipoid disorders; Z13.29 Encounter for screening for other suspected endocrine disorder; Z13.6 Encounter for screening for cardiovascular disorders; Z13.89 Encounter for screening for other disorder; Z13.9 Encounter for screening, unspecified

== ENCOUNTER 2022-03-16 11:47 | Emergency (ER) | payer OTHER ==
[~2022-03-16] VITALS: Ht 187.9 cm; Wt 122.5 kg
[2022-03-16 12:44] LABS: BASO # 0.1 10*3/uL (0.0-0.1); BASO % 0.6 % (0.0-1.0); EOS # 0.2 10*3/uL (0.0-0.4); EOS % 1.5 % (1.0-4.0); HEMATOCRIT 34.4 % (42.0-52.0); LYMPH # 2.8 10*3/uL (1.3-4.4); LYMPH % 27.2 % (27.0-41.0); MEAN CORPUSCULAR HGB 18.8 pg (27.0-31.0); MEAN CORPUSCULAR HGB CONC 28.5 g/dl (33.0-37.0); MONO # 0.9 10*3/uL (0.1-1.0); NEUT # 6.2 10*3/uL (2.3-7.9); NEUT % 60.8 % (47.0-73.0); PLATELET COUNT AUTOMATED 406 10*3/uL (130-400); RED BLOOD COUNT 5.21 10*6/uL (4.50-5.90); RED CELL DISTRI WIDTH 21.5 % (0-14.5); WHITE BLOOD COUNT 10.2 10*3/uL (4.8-10.8)
[2022-03-16 13:08] LABS: ALKALINE PHOSPHATASE 139 U/L (45-117); BUN 9 mg/dl (7-24); CHLORIDE 104 mmol/L (98-107); CREATININE 0.88 mg/dL (0.70-1.30); LIPASE 141 U/L (73-393); POTASSIUM 4.1 mmol/L (3.5-5.1); SGOT/AST 14 IU/L (3-35); SGPT/ALT 25 U/L (12-78); SODIUM 136 mmol/L (136-145)
[2022-03-16 20:00] VITALS: BP 122/72
== END 2022-03-16 20:00 | disposition short-term general hospital (02) ==
LOC: ED 11:47
PROVIDERS: Physician Assistant
DX: K56.609 Unspecified intestinal obstruction, unspecified as to partial versus complete obstruction (principal); Z88.1 Allergy status to other antibiotic agents; Z88.8 Allergy status to other drugs, medicaments and biological substances; Z79.899 Other long term (current) drug therapy; Z98.890 Other specified postprocedural states

== ENCOUNTER 2022-05-08 00:49 | Emergency (ER) | payer OTHER ==
[2022-05-08] VITALS (10 sets, daily range): BP systolic 121–138; BP diastolic 58–76
[~2022-05-08] VITALS: Ht 177.8 cm; Wt 117.9 kg
[2022-05-08 02:26] LABS: HEMATOCRIT 35.8 % (42.0-52.0); MEAN CELL VOLUME 66.1 fl (80.0-94.0); MEAN CORPUSCULAR HGB 19.6 pg (27.0-31.0); MEAN CORPUSCULAR HGB CONC 29.6 g/dl (33.0-37.0); MEAN PLATELET VOLUME 9.5 fl (9.6-12.3); PLATELET COUNT AUTOMATED 410 10*3/uL (130-400); RED BLOOD COUNT 5.42 10*6/uL (4.50-5.90); RED CELL DISTRI WIDTH 19.8 % (0-14.5); WHITE BLOOD COUNT 12.3 10*3/uL (4.8-10.8)
[2022-05-08 02:28] LABS: MANUAL DIFF REFLEX YES
[2022-05-08 02:37] LABS: ACT PARTIAL THROMBO TIME 27.2 SECONDS (20.0-32.1); INTERNATIONAL NORM RATIO 0.9 (2.0-3.5)
[2022-05-08 02:58] LABS: ATYPICAL LYMPHS 4 % (0-0); MICROCYTOSIS SLIGHT; PLATELET SUFFICIENCY HIGH (NORMAL); POLYCHROMASIA SLIGHT; TOTAL CELLS COUNTED 100 #CELLS
[2022-05-08 02:59] LABS: OVALOCYTES FEW; STOMATOCYTE FEW
[2022-05-08 03:28] LABS: BUN 19 mg/dl (7-24); CHLORIDE 100 mmol/L (98-107); CREATININE 1.21 mg/dL (0.70-1.30); LIPASE 188 U/L (73-393); POTASSIUM 4.2 mmol/L (3.5-5.1); SGOT/AST 17 IU/L (3-35); SGPT/ALT 24 U/L (12-78); SODIUM 132 mmol/L (136-145); TOTAL PROTEIN 7.2 gm/dL (6.4-8.2)
[2022-05-08 03:31] LABS: ALKALINE PHOSPHATASE 147 U/L (45-117)
[2022-05-09 16:50] VITALS: BP 157/69
== END 2022-05-09 19:39 | disposition short-term general hospital (02) ==
LOC: ED 00:49 → EDHOLD 05-09 12:28 → ED 05-09 19:39
PROVIDERS: Family Medicine
DX: K56.609 Unspecified intestinal obstruction, unspecified as to partial versus complete obstruction (principal); Z88.8 Allergy status to other drugs, medicaments and biological substances; Z88.1 Allergy status to other antibiotic agents; Z79.899 Other long term (current) drug therapy; Z98.890 Other specified postprocedural states

== ENCOUNTER → 2022-05-22 | Outpatient (CLI) | payer OTHER ==
[2022-05-22 11:48] LABS: BUN 13 mg/dl (7-24); CREATININE 1.09 mg/dL (0.70-1.30); POTASSIUM 4.1 mmol/L (3.5-5.1); SODIUM 137 mmol/L (136-145)
== END | disposition home or self-care (01) ==
LOC: LAB 11:09
PROVIDERS: Orthopaedic Surgery; ATTEND Physician Assistant Medical
DX: Z01.812 Encounter for preprocedural laboratory examination (principal); E11.9 Type 2 diabetes mellitus without complications; M19.012 Primary osteoarthritis, left shoulder; Z79.899 Other long term (current) drug therapy

== ENCOUNTER → 2022-05-23 | Outpatient (CLI) | payer OTHER | END | disposition home or self-care (01) | LOC: RAD 10:31 | PROVIDERS: ATTEND Physician Assistant Medical | DX: J98.11 Atelectasis (principal); M19.012 Primary osteoarthritis, left shoulder; Z01.818 Encounter for other preprocedural examination ==

== ENCOUNTER 2022-06-07 21:39 | Emergency (ER) | payer OTHER ==
[~2022-06-07] VITALS: Ht 187.9 cm; Wt 121.6 kg
[2022-06-07 22:28] LABS: HEMATOCRIT 37.4 % (42.0-52.0); MEAN CELL VOLUME 66.5 fl (80.0-94.0); MEAN CORPUSCULAR HGB 19.2 pg (27.0-31.0); MEAN CORPUSCULAR HGB CONC 28.9 g/dl (33.0-37.0); MEAN PLATELET VOLUME 9.3 fl (9.6-12.3); PLATELET COUNT AUTOMATED 524 10*3/uL (130-400); RED BLOOD COUNT 5.62 10*6/uL (4.50-5.90); RED CELL DISTRI WIDTH 19.7 % (0-14.5); WHITE BLOOD COUNT 13.3 10*3/uL (4.8-10.8)
[2022-06-07 22:40] LABS: MANUAL DIFF REFLEX YES
[2022-06-07 22:47] LABS: ALKALINE PHOSPHATASE 148 U/L (45-117); BUN 17 mg/dl (7-24); CHLORIDE 102 mmol/L (98-107); CREATININE 1.29 mg/dL (0.70-1.30); LIPASE 143 U/L (73-393); POTASSIUM 4.2 mmol/L (3.5-5.1); SGOT/AST 21 IU/L (3-35); SGPT/ALT 35 U/L (12-78); SODIUM 134 mmol/L (136-145); TOTAL PROTEIN 7.6 gm/dL (6.4-8.2)
[2022-06-07 22:49] LABS: POLYCHROMASIA SLIGHT; TOTAL CELLS COUNTED 100 #CELLS
[2022-06-07 22:50] LABS: MICROCYTOSIS SLIGHT; OVALOCYTES FEW; PLATELET SUFFICIENCY HIGH (NORMAL)
[2022-06-09 10:45] VITALS: BP 129/75
== END 2022-06-09 11:26 | disposition left against medical advice (07) ==
LOC: ED 21:39
PROVIDERS: Internal Medicine
DX: K56.609 Unspecified intestinal obstruction, unspecified as to partial versus complete obstruction (principal); Z20.822 Contact with and (suspected) exposure to COVID-19; R11.2 Nausea with vomiting, unspecified; E66.9 Obesity, unspecified; Z93.3 Colostomy status; Z88.8 Allergy status to other drugs, medicaments and biological substances; Z88.5 Allergy status to narcotic agent; Z88.1 Allergy status to other antibiotic agents; Z88.6 Allergy status to analgesic agent; Z79.899 Other long term (current) drug therapy; Z79.4 Long term (current) use of insulin; Z68.30 Body mass index [BMI] 30.0-30.9, adult; Z53.29 Procedure and treatment not carried out because of patient's decision for other reasons

== ENCOUNTER 2022-07-30 20:04 | Emergency (ER) | payer OTHER ==
[~2022-07-30] VITALS: Wt 124.7 kg
[2022-07-30 20:40] LABS: BASO # 0.1 10*3/uL (0.0-0.1); BASO % 0.3 % (0.0-1.0); EOS % 0.1 % (1.0-4.0); HEMATOCRIT 39.6 % (42.0-52.0); LYMPH # 2.5 10*3/uL (1.3-4.4); LYMPH % 16.6 % (27.0-41.0); MEAN CELL VOLUME 68.6 fl (80.0-94.0); MEAN CORPUSCULAR HGB 19.8 pg (27.0-31.0); MEAN CORPUSCULAR HGB CONC 28.8 g/dl (33.0-37.0); MEAN PLATELET VOLUME 9.2 fl (9.6-12.3); MONO # 1.5 10*3/uL (0.1-1.0); MONO % 9.8 % (3.0-9.0); NEUT # 11.1 10*3/uL (2.3-7.9); NEUT % 72.8 % (47.0-73.0); PLATELET COUNT AUTOMATED 466 10*3/uL (130-400); RED BLOOD COUNT 5.77 10*6/uL (4.50-5.90); RED CELL DISTRI WIDTH 19.6 % (0-14.5); WHITE BLOOD COUNT 15.2 10*3/uL (4.8-10.8)
[2022-07-30 22:45] LABS: CREATININE 1.63 mg/dL (0.70-1.30); POTASSIUM 4.4 mmol/L (3.4-5.1); TOTAL PROTEIN 8.6 gm/dL (6.0-8.0)
[2022-07-31 00:49] LABS: BILIRUBIN Negative (Negative); BLOOD 2+ (Negative); CLARITY Clear (Clear); COLOR Yellow (Yellow); GLUCOSE 2+ (Negative); KETONE Negative (Negative); LEUKO ESTERASE Trace (Negative); NITRITE Negative (Negative); UROBILINOGEN 0.2 E.U./dl (0.0-1.0)
[2022-07-31 01:07] LABS: RBC 21-30 rbc/hpf (0-2); YEAST 1+
[2022-07-31 06:46] LABS: HEMATOCRIT 34.2 % (42.0-52.0); MEAN CORPUSCULAR HGB 19.7 pg (27.0-31.0); MEAN CORPUSCULAR HGB CONC 28.9 g/dl (33.0-37.0); MEAN PLATELET VOLUME 8.8 fl (9.6-12.3); PLATELET COUNT AUTOMATED 406 10*3/uL (130-400); RED BLOOD COUNT 5.03 10*6/uL (4.50-5.90); RED CELL DISTRI WIDTH 19.3 % (0-14.5); WHITE BLOOD COUNT 10.8 10*3/uL (4.8-10.8)
[2022-07-31 07:00] LABS: ALKALINE PHOSPHATASE 138 U/L (46-116); BUN 37 mg/dl (9-23); CHLORIDE 109 mmol/L (98-107); CREATININE 1.25 mg/dL (0.70-1.30); POTASSIUM 4.1 mmol/L (3.4-5.1); SGPT/ALT 9 U/L (10-49); SODIUM 136 mmol/L (136-145)
[2022-07-31 07:01] LABS: TOTAL PROTEIN 7.4 gm/dL (6.0-8.0)
[2022-07-31 07:04] LABS: MANUAL DIFF REFLEX YES
[2022-07-31 07:09] LABS: ATYPICAL LYMPHS 1 % (0-0); DOHLE BODIES FEW; TOTAL CELLS COUNTED 100 #CELLS; TOXIC GRANULATION SLIGHT
[2022-07-31 07:10] LABS: BURR CELLS FEW; MICROCYTOSIS MODERATE; OVALOCYTES FEW; PLATELET SUFFICIENCY HIGH (NORMAL); POLYCHROMASIA SLIGHT; SCHISTOCYTES FEW
[2022-07-31 07:11] LABS: ROULEAUX SLIGHT
[2022-07-31 07:46] VITALS: BP 110/60
== END 2022-07-31 09:46 | disposition short-term general hospital (02) ==
LOC: ED 20:04
PROVIDERS: Emergency Medicine
DX: K43.3 Parastomal hernia with obstruction, without gangrene (principal); Z88.8 Allergy status to other drugs, medicaments and biological substances; Z88.1 Allergy status to other antibiotic agents; Z79.899 Other long term (current) drug therapy; Z98.890 Other specified postprocedural states

== ENCOUNTER 2022-10-15 18:39 | Emergency (ER) | payer OTHER ==
[2022-10-15 19:59] LABS: HEMATOCRIT 44.1 % (42.0-52.0); MEAN CELL VOLUME 66.1 fl (80.0-94.0); MEAN CORPUSCULAR HGB 20.5 pg (27.0-31.0); MEAN CORPUSCULAR HGB CONC 31.1 g/dl (33.0-37.0); MEAN PLATELET VOLUME 9.4 fl (9.6-12.3); PLATELET COUNT AUTOMATED 579 10*3/uL (130-400); RED BLOOD COUNT 6.67 10*6/uL (4.50-5.90); RED CELL DISTRI WIDTH 19.6 % (0-14.5); WHITE BLOOD COUNT 21.1 10*3/uL (4.8-10.8)
[2022-10-15 20:01] LABS: MANUAL DIFF REFLEX YES
[2022-10-15 20:19] LABS: PLATELET SUFFICIENCY HIGH (NORMAL); TARGET CELLS FEW; TOTAL CELLS COUNTED 100 #CELLS
[2022-10-15 20:21] LABS: POLYCHROMASIA SLIGHT
[2022-10-15 20:31] LABS: ALKALINE PHOSPHATASE 164 U/L (46-116); BUN 27 mg/dl (9-23); CHLORIDE 93 mmol/L (98-107); LIPASE 57 U/L (12-53); POTASSIUM 5.1 mmol/L (3.4-5.1); SGPT/ALT 12 U/L (10-49); TOTAL PROTEIN 8.7 gm/dL (6.0-8.0)
[2022-10-15 20:38] LABS: BILIRUBIN Negative (Negative); BLOOD Negative (Negative); CLARITY Clear (Clear); COLOR Yellow (Yellow); GLUCOSE 3+ (Negative); KETONE Trace (Negative); LEUKO ESTERASE Trace (Negative); NITRITE Negative (Negative); SPECIFIC GRAVITY 1.025 (1.001-1.030)
[2022-10-15 21:08] LABS: RBC 0-2 rbc/hpf (0-2); YEAST 2+
[2022-10-16 01:40] VITALS: BP 128/72
== END 2022-10-16 02:52 | disposition short-term general hospital (02) ==
LOC: ED 18:39
PROVIDERS: Emergency Medicine
DX: K56.609 Unspecified intestinal obstruction, unspecified as to partial versus complete obstruction (principal); Z88.1 Allergy status to other antibiotic agents; Z88.5 Allergy status to narcotic agent; Z88.8 Allergy status to other drugs, medicaments and biological substances; Z98.890 Other specified postprocedural states

== ENCOUNTER 2023-02-19 12:38 | Emergency (ER) | payer OTHER ==
[~2023-02-19] VITALS: Ht 187.9 cm; Wt 124.7 kg
[2023-02-19 12:57] VITALS: BP 107/54
[2023-02-19 12:59] LABS: BASO # 0.1 10*3/uL (0.0-0.1); BASO % 0.9 % (0.0-1.0); EOS # 0.3 10*3/uL (0.0-0.4); EOS % 2.6 % (1.0-4.0); HEMATOCRIT 36.1 % (42.0-52.0); LYMPH # 3.1 10*3/uL (1.3-4.4); LYMPH % 30.1 % (27.0-41.0); MEAN CELL VOLUME 68.6 fl (80.0-94.0); MEAN CORPUSCULAR HGB 19.8 pg (27.0-31.0); MEAN CORPUSCULAR HGB CONC 28.8 g/dl (33.0-37.0); MEAN PLATELET VOLUME 9.2 fl (9.6-12.3); MONO # 0.7 10*3/uL (0.1-1.0); MONO % 6.6 % (3.0-9.0); NEUT % 58.9 % (47.0-73.0); PLATELET COUNT AUTOMATED 347 10*3/uL (130-400); RED BLOOD COUNT 5.26 10*6/uL (4.50-5.90); RED CELL DISTRI WIDTH 21.2 % (0-14.5); WHITE BLOOD COUNT 10.2 10*3/uL (4.8-10.8)
[2023-02-19 13:11] LABS: ACT PARTIAL THROMBO TIME 27.9 SECONDS (20.0-32.1)
[2023-02-19 13:31] LABS: ALKALINE PHOSPHATASE 136 U/L (46-116); BUN 18 mg/dl (9-23); CHLORIDE 98 mmol/L (98-107); POTASSIUM 4.6 mmol/L (3.4-5.1); SGPT/ALT 10 U/L (10-49)
[2023-02-19] MEDS ORDERED: PREDNISONE20 M1 PO (14:40)
[2023-02-19] MEDS ORDERED: VIBRAMYCIN100 MG PO (14:40)
== END 2023-02-19 14:54 | disposition home or self-care (01) ==
LOC: ED 12:38
PROVIDERS: Emergency Medicine
DX: J44.1 Chronic obstructive pulmonary disease with (acute) exacerbation (principal); E11.9 Type 2 diabetes mellitus without complications; I50.9 Heart failure, unspecified; G43.909 Migraine, unspecified, not intractable, without status migrainosus; Z86.718 Personal history of other venous thrombosis and embolism; Z88.5 Allergy status to narcotic agent; Z88.1 Allergy status to other antibiotic agents; Z88.8 Allergy status to other drugs, medicaments and biological substances; Z88.6 Allergy status to analgesic agent; Z98.890 Other specified postprocedural states

== ENCOUNTER 2023-10-19 15:40 | Emergency (ER) | payer OTHER ==
[~2023-10-19] VITALS: Ht 187.9 cm; Wt 122.5 kg
[2023-10-19 15:47] VITALS: BP 109/60
[2023-10-19 16:15] LABS: BASO # 0.1 10*3/uL (0.0-0.1); BASO % 0.7 % (0.0-1.0); EOS # 0.2 10*3/uL (0.0-0.4); EOS % 1.8 % (1.0-4.0); HEMATOCRIT 41.6 % (42.0-52.0); LYMPH % 28.8 % (27.0-41.0); MEAN CELL VOLUME 78.3 fl (80.0-94.0); MEAN CORPUSCULAR HGB 23.7 pg (27.0-31.0); MEAN CORPUSCULAR HGB CONC 30.3 g/dl (33.0-37.0); MEAN PLATELET VOLUME 9.3 fl (9.6-12.3); MONO # 0.7 10*3/uL (0.1-1.0); NEUT # 6.4 10*3/uL (2.3-7.9); NEUT % 60.9 % (47.0-73.0); PLATELET COUNT AUTOMATED 321 10*3/uL (130-400); RED BLOOD COUNT 5.31 10*6/uL (4.50-5.90); RED CELL DISTRI WIDTH 15.8 % (0-14.5); WHITE BLOOD COUNT 10.5 10*3/uL (4.8-10.8)
[2023-10-19 16:26] LABS: ACT PARTIAL THROMBO TIME 30.5 SECONDS (20.0-32.1)
[2023-10-19 16:37] LABS: ALKALINE PHOSPHATASE 115 U/L (46-116); BUN 27 mg/dl (9-23); CHLORIDE 99 mmol/L (98-107); LIPASE 40 U/L (12-53); POTASSIUM 4.2 mmol/L (3.4-5.1); SGPT/ALT 8 U/L (5-49)
== END 2023-10-19 18:44 | disposition home or self-care (01) ==
LOC: ED 15:40
PROVIDERS: Emergency Medicine
DX: R07.89 Other chest pain (principal); E11.9 Type 2 diabetes mellitus without complications; J44.9 Chronic obstructive pulmonary disease, unspecified; I11.0 Hypertensive heart disease with heart failure; I50.9 Heart failure, unspecified; G43.909 Migraine, unspecified, not intractable, without status migrainosus; E78.5 Hyperlipidemia, unspecified; Z86.718 Personal history of other venous thrombosis and embolism; Z88.5 Allergy status to narcotic agent; Z88.1 Allergy status to other antibiotic agents; Z88.6 Allergy status to analgesic agent; Z88.8 Allergy status to other drugs, medicaments and biological substances; Z98.890 Other specified postprocedural states

== ENCOUNTER 2023-12-10 22:45 | Emergency (ER) | payer OTHER ==
[~2023-12-10] VITALS: Ht 188 cm; Wt 122.5 kg
[2023-12-10 23:37] LABS: BASO # 0.1 10*3/uL (0.0-0.1); BASO % 0.9 % (0.0-1.0); EOS # 0.4 10*3/uL (0.0-0.4); EOS % 4.3 % (1.0-4.0); HEMATOCRIT 40.5 % (42.0-52.0); LYMPH # 2.8 10*3/uL (1.3-4.4); MEAN CELL VOLUME 76.3 fl (80.0-94.0); MEAN CORPUSCULAR HGB 24.5 pg (27.0-31.0); MEAN CORPUSCULAR HGB CONC 32.1 g/dl (33.0-37.0); MEAN PLATELET VOLUME 9.9 fl (9.6-12.3); MONO # 0.9 10*3/uL (0.1-1.0); MONO % 9.1 % (3.0-9.0); NEUT # 5.7 10*3/uL (2.3-7.9); NEUT % 56.6 % (47.0-73.0); PLATELET COUNT AUTOMATED 317 10*3/uL (130-400); RED BLOOD COUNT 5.31 10*6/uL (4.50-5.90); RED CELL DISTRI WIDTH 15.5 % (0-14.5); WHITE BLOOD COUNT 10.1 10*3/uL (4.8-10.8)
[2023-12-10] MEDS ORDERED: HYDROmorphONE Hydrochloride 0.5 MG/0.5 ML SYRINGE IV ONE (23:55)
[2023-12-10 23:59] LABS: ALKALINE PHOSPHATASE 126 U/L (46-116); BUN 10 mg/dl (9-23); CHLORIDE 97 mmol/L (98-107); POTASSIUM 3.6 mmol/L (3.4-5.1); SGPT/ALT 26 U/L (5-49); TOTAL PROTEIN 6.8 gm/dL (6.0-8.0)
[2023-12-11] MEDS ORDERED: HYDROmorphONE Hydrochloride 1 MG/ML SYR IV ONE (04:35)
[2023-12-11] MEDS ORDERED: HYDROmorphONE Hydrochloride 0.5 MG/0.5 ML SYRINGE IV PRN (08:15)
[2023-12-12] MEDS ORDERED: HYDROmorphONE Hydrochloride 0.5 MG/0.5 ML SYRINGE IV PRN ×2 (00:40→09:50)
[2023-12-12] MEDS ORDERED: HYDROmorphONE Hydrochloride 0.5 MG/0.5 ML SYRINGE ONE ×2 (00:53→06:11)
[2023-12-12] MEDS ORDERED: TOPROL XL25 MG PO (07:14)
[2023-12-12] MEDS ORDERED: MORPHINE 00.5 MG/13 PO (07:15)
[2023-12-12] MEDS ORDERED: MOUNJARO SQ (07:15)
[2023-12-12] MEDS ORDERED: VILAZODONE HCL40 M1 PO (07:17)
[2023-12-12] MEDS ORDERED: SINEMET 25-1001 EACH PO (07:18)
[2023-12-12] MEDS ORDERED: LYVISPAH10 M1 PO (07:21)
[2023-12-12] MEDS ORDERED: DEXTROSE 10 % IN WATER 250 ML IV PRN (10:40)
[2023-12-12] MEDS ORDERED: Albuterol Sulf/Ipratropium 3 ML VIAL NEB PRN (10:40)
[2023-12-12] MEDS ORDERED: INSULIN LISPRO 1 UNIT/0.01 ML SQ SCH (11:30)
[2023-12-12 11:42] VITALS: BP 156/87
[2023-12-12] MEDS ORDERED: IBUPROFEN 400 MG TAB PO ONE (12:00)
[2023-12-12] MEDS ORDERED: Carbidopa/Levodopa 25/100MG 1 TAB TAB PO SCH (14:00)
[2023-12-12] MEDS ORDERED: GABAPENTIN 600 MG TAB PO SCH (14:00)
[2023-12-12] MEDS ORDERED: DILTIAZEM CD 240 MG CAP PO SCH (22:00)
[2023-12-12] MEDS ORDERED: ATORVASTATIN CALCIUM 10 MG TAB PO SCH (22:00)
[2023-12-12] MEDS ORDERED: QUETIAPINE FUMARATE 100 MG TAB PO SCH (22:00)
[2023-12-12] MEDS ORDERED: METOPROLOL SUCCINATE XR 25 MG TAB PO SCH (22:00)
[2023-12-12] MEDS ORDERED: busPIRone Hydrochloride 15 MG TAB PO SCH (22:00)
[2023-12-12] MEDS ORDERED: Ropinirole Hydrochloride 1 MG TAB PO SCH (22:00)
[2023-12-13] MEDS ORDERED: LISINOPRIL 2.5 MG TAB PO SCH (10:00)
[2023-12-13] MEDS ORDERED: BUMETANIDE 1 MG TAB PO SCH (10:00)
[2023-12-13] MEDS ORDERED: Tamsulosin Hydrochloride 0.4 MG CAP PO SCH (10:00)
[2023-12-13] MEDS ORDERED: BREXPIPRAZOLE 1 MG TABLET PO SCH (10:00)
[2023-12-13] MEDS ORDERED: DUTASTERIDE 0.5 MG CAP PO SCH (10:00)
[2023-12-13] MEDS ORDERED: ROFLUMILAST 500 MCG TAB PO SCH (10:00)
== END 2023-12-12 17:01 | disposition short-term general hospital (02) ==
LOC: ED 22:45
PROVIDERS: Emergency Medicine
DX: K94.03 Colostomy malfunction (principal); E78.5 Hyperlipidemia, unspecified; J44.9 Chronic obstructive pulmonary disease, unspecified; K21.9 Gastro-esophageal reflux disease without esophagitis; I10 Essential (primary) hypertension; E66.9 Obesity, unspecified; Z88.8 Allergy status to other drugs, medicaments and biological substances; Z88.1 Allergy status to other antibiotic agents; Z79.899 Other long term (current) drug therapy; Z79.4 Long term (current) use of insulin; Z86.718 Personal history of other venous thrombosis and embolism; Z68.30 Body mass index [BMI] 30.0-30.9, adult; Z98.890 Other specified postprocedural states

== ENCOUNTER → 2024-01-18 | Outpatient (CLI) | payer OTHER ==
[~2024-01-18] MED LIST changes: +LYVISPAH10 M1 PO; +MORPHINE 00.5 MG/13 PO; +MOUNJARO SQ; +SINEMET 25-1001 EACH PO; +TOPROL XL25 MG PO; +VILAZODONE HCL40 M1 PO
== END ==
LOC: WOUNDCARE 02:06
PROVIDERS: ATTEND Nurse Practitioner Family
DX: L03.116 Cellulitis of left lower limb (principal); L03.115 Cellulitis of right lower limb; I83.018 Varicose veins of right lower extremity with ulcer other part of lower leg; E11.622 Type 2 diabetes mellitus with other skin ulcer; L97.812 Non-pressure chronic ulcer of other part of right lower leg with fat layer exposed; I83.028 Varicose veins of left lower extremity with ulcer other part of lower leg; L97.822 Non-pressure chronic ulcer of other part of left lower leg with fat layer exposed; J44.9 Chronic obstructive pulmonary disease, unspecified; I48.91 Unspecified atrial fibrillation; I10 Essential (primary) hypertension; F41.9 Anxiety disorder, unspecified; F32.A Depression, unspecified; Z85.038 Personal history of other malignant neoplasm of large intestine

== ENCOUNTER 2024-01-22 17:17 | Emergency (ER) | payer OTHER ==
[~2024-01-22] VITALS: Ht 187.9 cm; Wt 122.5 kg
[~2024-01-22 17:17] MED LIST changes: -FLUVOXAMINE50 MG PO; -SULFAMETHOXAZOLE-TMP PO
[2024-01-22 17:45] VITALS: BP 120/49
[2024-01-22 20:04] LABS: BASO # 0.1 10*3/uL (0.0-0.1); BASO % 1.3 % (0.0-1.0); EOS # 0.4 10*3/uL (0.0-0.4); EOS % 3.6 % (1.0-4.0); HEMATOCRIT 38.9 % (42.0-52.0); LYMPH # 2.7 10*3/uL (1.3-4.4); LYMPH % 26.2 % (27.0-41.0); MEAN CORPUSCULAR HGB 24.8 pg (27.0-31.0); MEAN CORPUSCULAR HGB CONC 31.9 g/dl (33.0-37.0); MEAN PLATELET VOLUME 9.9 fl (9.6-12.3); MONO # 0.9 10*3/uL (0.1-1.0); NEUT # 5.9 10*3/uL (2.3-7.9); NEUT % 58.2 % (47.0-73.0); PLATELET COUNT AUTOMATED 358 10*3/uL (130-400); RED BLOOD COUNT 4.99 10*6/uL (4.50-5.90); WHITE BLOOD COUNT 10.2 10*3/uL (4.8-10.8)
[2024-01-22 20:22] LABS: ALKALINE PHOSPHATASE 152 U/L (46-116); BUN 24 mg/dl (9-23); CHLORIDE 91 mmol/L (98-107); LIPASE 51 U/L (12-53); POTASSIUM 4.4 mmol/L (3.4-5.1); SGPT/ALT 10 U/L (5-49); TOTAL PROTEIN 6.8 gm/dL (6.0-8.0)
== END 2024-01-22 22:47 | disposition home or self-care (01) ==
LOC: ED 17:17
PROVIDERS: Internal Medicine
DX: E11.65 Type 2 diabetes mellitus with hyperglycemia (principal); Z88.8 Allergy status to other drugs, medicaments and biological substances; Z88.5 Allergy status to narcotic agent; Z88.1 Allergy status to other antibiotic agents; Z88.6 Allergy status to analgesic agent; Z79.899 Other long term (current) drug therapy; Z79.4 Long term (current) use of insulin; Z98.890 Other specified postprocedural states

== ENCOUNTER → 2024-01-22 | Outpatient (CLI) | payer OTHER ==
[~2024-01-22] MED LIST changes: +FLUVOXAMINE50 MG PO; +SULFAMETHOXAZOLE-TMP PO
[2024-01-22 13:37] LABS: BUN 27 mg/dl (9-23); CHLORIDE 90 mmol/L (98-107); POTASSIUM 4.2 mmol/L (3.4-5.1)
== END | disposition home or self-care (01) ==
LOC: LAB 11:29
PROVIDERS: ATTEND Specialist
DX: I11.0 Hypertensive heart disease with heart failure (principal); I50.20 Unspecified systolic (congestive) heart failure; R53.83 Other fatigue; R06.09 Other forms of dyspnea; I48.0 Paroxysmal atrial fibrillation

== ENCOUNTER → 2024-01-24 | Outpatient (CLI) | payer OTHER ==
[~2024-01-24] MED LIST changes: +FLUVOXAMINE50 MG PO; +SULFAMETHOXAZOLE-TMP PO
== END | disposition home or self-care (01) ==
LOC: WOUNDCARE 02:04
PROVIDERS: ATTEND Nurse Practitioner Family
DX: L03.115 Cellulitis of right lower limb (principal); L03.116 Cellulitis of left lower limb; E11.622 Type 2 diabetes mellitus with other skin ulcer; I83.018 Varicose veins of right lower extremity with ulcer other part of lower leg; L97.812 Non-pressure chronic ulcer of other part of right lower leg with fat layer exposed; I83.028 Varicose veins of left lower extremity with ulcer other part of lower leg; L97.822 Non-pressure chronic ulcer of other part of left lower leg with fat layer exposed; E11.22 Type 2 diabetes mellitus with diabetic chronic kidney disease; I13.0 Hypertensive heart and chronic kidney disease with heart failure and stage 1 through stage 4 chronic kidney disease, or unspecified chronic kidney disease; N18.9 Chronic kidney disease, unspecified; I50.9 Heart failure, unspecified; I48.91 Unspecified atrial fibrillation; J44.9 Chronic obstructive pulmonary disease, unspecified; K21.9 Gastro-esophageal reflux disease without esophagitis; F41.9 Anxiety disorder, unspecified; F32.A Depression, unspecified; Z85.038 Personal history of other malignant neoplasm of large intestine; Z86.718 Personal history of other venous thrombosis and embolism; Z79.4 Long term (current) use of insulin; Z79.899 Other long term (current) drug therapy

== ENCOUNTER → 2024-01-28 | Outpatient (CLI) | payer OTHER | END | disposition home or self-care (01) | LOC: WOUNDCARE 00:36 | PROVIDERS: ATTEND Nurse Practitioner Primary Care | DX: L03.115 Cellulitis of right lower limb (principal); E11.622 Type 2 diabetes mellitus with other skin ulcer; I83.018 Varicose veins of right lower extremity with ulcer other part of lower leg; L97.812 Non-pressure chronic ulcer of other part of right lower leg with fat layer exposed; I83.028 Varicose veins of left lower extremity with ulcer other part of lower leg; L97.822 Non-pressure chronic ulcer of other part of left lower leg with fat layer exposed; E11.22 Type 2 diabetes mellitus with diabetic chronic kidney disease; I13.0 Hypertensive heart and chronic kidney disease with heart failure and stage 1 through stage 4 chronic kidney disease, or unspecified chronic kidney disease; N18.9 Chronic kidney disease, unspecified; I50.9 Heart failure, unspecified; I48.91 Unspecified atrial fibrillation; J44.9 Chronic obstructive pulmonary disease, unspecified; K21.9 Gastro-esophageal reflux disease without esophagitis; F41.9 Anxiety disorder, unspecified; F32.A Depression, unspecified; Z85.038 Personal history of other malignant neoplasm of large intestine; Z86.718 Personal history of other venous thrombosis and embolism; Z79.4 Long term (current) use of insulin; Z79.899 Other long term (current) drug therapy ==

== ENCOUNTER 2024-01-30 15:10 | Inpatient (IN) | payer OTHER ==
[~2024-01-30] VITALS: Ht 187.9 cm; Wt 119.4 kg
[~2024-01-30 15:10] MED LIST changes: -FLUVOXAMINE50 MG PO; -SULFAMETHOXAZOLE-TMP PO
[2024-01-30 15:16] VITALS: BP 107/68
[2024-01-30] MEDS ORDERED: SULFAMETHOXAZOLE-TMP PO (15:18)
[2024-01-30] MEDS ORDERED: SODIUM CHLORIDE 0.9% 1,000 ML IV ONE (15:40)
[2024-01-30 15:56] LABS: BASO # 0.1 10*3/uL (0.0-0.1); BASO % 1.1 % (0.0-1.0); EOS # 0.2 10*3/uL (0.0-0.4); EOS % 2.3 % (1.0-4.0); HEMATOCRIT 39.6 % (42.0-52.0); LYMPH # 1.8 10*3/uL (1.3-4.4); LYMPH % 20.1 % (27.0-41.0); MEAN CELL VOLUME 76.4 fl (80.0-94.0); MEAN CORPUSCULAR HGB 24.3 pg (27.0-31.0); MEAN CORPUSCULAR HGB CONC 31.8 g/dl (33.0-37.0); MEAN PLATELET VOLUME 9.8 fl (9.6-12.3); MONO # 0.7 10*3/uL (0.1-1.0); MONO % 7.9 % (3.0-9.0); NEUT # 6.1 10*3/uL (2.3-7.9); NEUT % 66.6 % (47.0-73.0); PLATELET COUNT AUTOMATED 373 10*3/uL (130-400); RED BLOOD COUNT 5.18 10*6/uL (4.50-5.90); RED CELL DISTRI WIDTH 14.9 % (0-14.5); WHITE BLOOD COUNT 9.1 10*3/uL (4.8-10.8)
[2024-01-30 17:49] LABS: BUN 21 mg/dl (9-23)
[2024-01-30 18:00] LABS: POTASSIUM 4.1 mmol/L (3.4-5.1)
[2024-01-30 18:01] LABS: CHLORIDE 91 mmol/L (98-107); TOTAL PROTEIN 6.8 gm/dL (6.0-8.0)
[2024-01-30 18:02] LABS: ALKALINE PHOSPHATASE 150 U/L (46-116); SGPT/ALT < 7 U/L (5-49)
[2024-01-30] MEDS ORDERED: INSULIN REGULAR, HUMAN 1 UNIT/0.01 ML IV ONE (18:10)
[2024-01-30 19:46] VITALS: BP 108/39
[2024-01-30 20:50] VITALS: BP 108/68
[2024-01-30] MEDS ORDERED: MS CONTIN15 MG PO (22:04)
[2024-01-30] MEDS ORDERED: FLUVOXAMINE50 MG PO (22:07)
[2024-01-30] MEDS ORDERED: Insulin Glargine, Recombinan 1 UNIT/0.01 ML SC SCH (22:20)
[2024-01-30] MEDS ORDERED: DEXTROSE 10 % IN WATER 250 ML IV PRN (22:20)
[2024-01-30] MEDS ORDERED: Ropinirole Hydrochloride 1 MG TAB PO SCH (22:25)
[2024-01-30] MEDS ORDERED: MORPHINE SULFATE 15 MG PO SCH (22:30)
[2024-01-30] MEDS ORDERED: INSULIN REGULAR, HUMAN 1 UNIT/0.01 ML SC SCH (22:38)
[2024-01-30] MEDS ORDERED: APIXABAN 5 MG TAB PO SCH (22:43)
[2024-01-31] VITALS: BP 101/53; BP 144/71
[2024-01-31] MEDS ORDERED: INSULIN LISPRO 1 UNIT/0.01 ML SQ SCH ×2 (07:00→11:30)
[2024-01-31 08:00] VITALS: BP 147/82
[2024-01-31] MEDS ORDERED: DEXTROSE 10 % IN WATER 250 ML IV PRN (10:55)
[2024-01-31] MEDS ORDERED: Albuterol Sulf/Ipratropium 3 ML VIAL NEB PRN (11:00)
[2024-01-31 12:00] VITALS: BP 145/77
[2024-01-31] MEDS ORDERED: Carbidopa/Levodopa 25/100MG 1 TAB TAB PO SCH (14:00)
[2024-01-31] MEDS ORDERED: hydrOXYzine 50 MG CAP PO SCH (14:00)
[2024-01-31] MEDS ORDERED: GABAPENTIN 400 MG CAP PO SCH (14:00)
[2024-01-31] MEDS ORDERED: ACETAMINOPHEN 500 MG TAB PO PRN (14:50)
[2024-01-31 16:00] VITALS: BP 123/91
[2024-01-31] MEDS ORDERED: OMEPRAZOLE 20 MG CAP PO SCH (16:30)
[2024-01-31] MEDS ORDERED: QUETIAPINE FUMARATE 100 MG TAB PO SCH ×2 (18:00→23:30)
[2024-01-31] MEDS ORDERED: METOPROLOL SUCCINATE XR 25 MG TAB PO SCH (22:00)
[2024-01-31] MEDS ORDERED: busPIRone Hydrochloride 15 MG TAB PO SCH (22:00)
[2024-01-31] MEDS ORDERED: Tamsulosin Hydrochloride 0.4 MG CAP PO SCH (22:00)
[2024-01-31] MEDS ORDERED: Sulfamethoxazole/Trimethopri 1 TAB TAB PO SCH (22:00)
[2024-01-31] MEDS ORDERED: DILTIAZEM CD 240 MG CAP PO SCH (22:00)
[2024-02-01] VITALS: BP 153/86
[2024-02-01 06:46] LABS: BASO # 0.1 10*3/uL (0.0-0.1); BASO % 1.1 % (0.0-1.0); EOS # 0.3 10*3/uL (0.0-0.4); EOS % 2.9 % (1.0-4.0); HEMATOCRIT 40.6 % (42.0-52.0); LYMPH # 2.6 10*3/uL (1.3-4.4); MEAN CELL VOLUME 76.9 fl (80.0-94.0); MEAN CORPUSCULAR HGB 24.6 pg (27.0-31.0); MEAN PLATELET VOLUME 9.5 fl (9.6-12.3); MONO % 9.1 % (3.0-9.0); NEUT # 7.1 10*3/uL (2.3-7.9); NEUT % 62.4 % (47.0-73.0); PLATELET COUNT AUTOMATED 369 10*3/uL (130-400); RED BLOOD COUNT 5.28 10*6/uL (4.50-5.90); RED CELL DISTRI WIDTH 15.4 % (0-14.5); WHITE BLOOD COUNT 11.3 10*3/uL (4.8-10.8)
[2024-02-01 07:06] LABS: BUN 17 mg/dl (9-23); CHLORIDE 97 mmol/L (98-107); POTASSIUM 4.5 mmol/L (3.4-5.1)
[2024-02-01] MEDS ORDERED: glyBURIDE 5 MG TAB PO SCH (07:30)
[2024-02-01 08:00] VITALS: BP 121/94
[2024-02-01] MEDS ORDERED: BREXPIPRAZOLE PO SCH (10:00)
[2024-02-01] MEDS ORDERED: BREXPIPRAZOLE 2 MG TABLET PO SCH (10:00)
[2024-02-01] MEDS ORDERED: DUTASTERIDE 0.5 MG CAP PO SCH (10:00)
[2024-02-01] MEDS ORDERED: LISINOPRIL 2.5 MG TAB PO SCH (10:00)
[2024-02-01] MEDS ORDERED: BUMETANIDE 1 MG TAB PO SCH (10:00)
[2024-02-01] MEDS ORDERED: COLLAGENASE T SCH (10:00)
[2024-02-01 12:00] VITALS: BP 134/92
[2024-02-01 16:00] VITALS: BP 129/81
[2024-02-01 20:00] VITALS: BP 134/71
[2024-02-01] MEDS ORDERED: QUETIAPINE FUMARATE 100 MG TAB PO SCH (21:00)
[2024-02-01] MEDS ORDERED: Insulin Glargine, Recombinan 1 UNIT/0.01 ML SC SCH (22:00)
[2024-02-02] VITALS: BP 126/67
[2024-02-02 07:20] LABS: BUN 19 mg/dl (9-23); CHLORIDE 93 mmol/L (98-107); POTASSIUM 4.2 mmol/L (3.4-5.1)
[2024-02-02] MEDS ORDERED: SODIUM CHLORIDE 0.9% 1,000 ML IV SCH (07:25)
[2024-02-02 08:00] VITALS: BP 124/73
[2024-02-02] MEDS ORDERED: EMPAGLIFLOZIN 10 MG TABLET PO SCH (10:00)
[2024-02-02] MEDS ORDERED: glyBURIDE 5 MG TAB PO SCH (10:00)
[2024-02-02] MEDS ORDERED: LIRAGLUTIDE 6 MG/ML PEN SC SCH (10:00)
[2024-02-02 12:00] VITALS: BP 103/60
[2024-02-02 16:00] VITALS: BP 103/60; BP 124/73
[2024-02-02 20:00] VITALS: BP 110/62
[2024-02-03] VITALS: BP 116/58
[2024-02-03 07:04] LABS: BUN 19 mg/dl (9-23); CHLORIDE 95 mmol/L (98-107); POTASSIUM 4.4 mmol/L (3.4-5.1)
[2024-02-03 08:00] VITALS: BP 115/66
[2024-02-03] MEDS ORDERED: VICTOZA 2-0.6 MG/0.1 SC (08:24)
[2024-02-03] MEDS ORDERED: Lantus SC ×3 (08:24→08:31)
[2024-02-03] MEDS ORDERED: GLYBURIDE5 MG PO (08:24)
[2024-02-03] MEDS ORDERED: JARDIANCE10 MG PO (08:27)
[2024-02-03] MEDS ORDERED: LANTUS SOL100 UNIT/1 SC (08:31)
[2024-02-03] MEDS ORDERED: LIRAGLUTIDE 6 MG/ML PEN SC SCH (10:00)
== END 2024-02-03 14:37 | disposition home or self-care (01) | DRG 638 ==
LOC: ED 15:10 → 4E 18:34 → EDHOLD 18:34 → 4E 19:15
PROVIDERS: Physician Assistant Medical; ADMIT Internal Medicine; ATTEND Internal Medicine
DX: E11.65 Type 2 diabetes mellitus with hyperglycemia (principal); E87.1 Hypo-osmolality and hyponatremia; I13.0 Hypertensive heart and chronic kidney disease with heart failure and stage 1 through stage 4 chronic kidney disease, or unspecified chronic kidney disease; L97.819 Non-pressure chronic ulcer of other part of right lower leg with unspecified severity; L03.115 Cellulitis of right lower limb; I50.9 Heart failure, unspecified; J44.9 Chronic obstructive pulmonary disease, unspecified; K21.9 Gastro-esophageal reflux disease without esophagitis; E78.5 Hyperlipidemia, unspecified; E66.9 Obesity, unspecified; N18.31 Chronic kidney disease, stage 3a; E11.22 Type 2 diabetes mellitus with diabetic chronic kidney disease; G20.A1 Parkinson's disease without dyskinesia, without mention of fluctuations; N40.1 Benign prostatic hyperplasia with lower urinary tract symptoms; R33.8 Other retention of urine; F41.1 Generalized anxiety disorder; G43.909 Migraine, unspecified, not intractable, without status migrainosus; M19.90 Unspecified osteoarthritis, unspecified site; G25.81 Restless legs syndrome; G89.29 Other chronic pain; E87.8 Other disorders of electrolyte and fluid balance, not elsewhere classified; Z88.8 Allergy status to other drugs, medicaments and biological substances; Z91.09 Other allergy status, other than to drugs and biological substances; Z79.899 Other long term (current) drug therapy; Z68.33 Body mass index [BMI] 33.0-33.9, adult; Z79.01 Long term (current) use of anticoagulants; Z86.718 Personal history of other venous thrombosis and embolism; Z79.2 Long term (current) use of antibiotics; Z80.8 Family history of malignant neoplasm of other organs or systems; Z82.49 Family history of ischemic heart disease and other diseases of the circulatory system; Z83.3 Family history of diabetes mellitus

== ENCOUNTER → 2024-01-30 | Outpatient (CLI) | payer OTHER ==
[2024-01-30 11:02] LABS: BUN 20 mg/dl (9-23); CHLORIDE 89 mmol/L (98-107); POTASSIUM 4.3 mmol/L (3.4-5.1)
== END | disposition home or self-care (01) ==
LOC: LAB 09:18
PROVIDERS: ATTEND Specialist
DX: I11.0 Hypertensive heart disease with heart failure (principal); I50.20 Unspecified systolic (congestive) heart failure; R53.83 Other fatigue; R06.09 Other forms of dyspnea; I48.0 Paroxysmal atrial fibrillation

== ENCOUNTER → 2024-02-08 | Outpatient (CLI) | payer OTHER ==
[~2024-02-08] MED LIST changes: +FLUVOXAMINE50 MG PO; +JARDIANCE10 MG PO; +SULFAMETHOXAZOLE-TMP PO; +VICTOZA 2-0.6 MG/0.1 SC
== END | disposition home or self-care (01) ==
LOC: WOUNDCARE 02:29
PROVIDERS: ATTEND Nurse Practitioner Family
DX: E11.622 Type 2 diabetes mellitus with other skin ulcer (principal); I83.018 Varicose veins of right lower extremity with ulcer other part of lower leg; L97.812 Non-pressure chronic ulcer of other part of right lower leg with fat layer exposed; I83.028 Varicose veins of left lower extremity with ulcer other part of lower leg; L97.821 Non-pressure chronic ulcer of other part of left lower leg limited to breakdown of skin; E11.65 Type 2 diabetes mellitus with hyperglycemia; E11.22 Type 2 diabetes mellitus with diabetic chronic kidney disease; I13.0 Hypertensive heart and chronic kidney disease with heart failure and stage 1 through stage 4 chronic kidney disease, or unspecified chronic kidney disease; N18.9 Chronic kidney disease, unspecified; I50.9 Heart failure, unspecified; I48.91 Unspecified atrial fibrillation; J44.9 Chronic obstructive pulmonary disease, unspecified; K21.9 Gastro-esophageal reflux disease without esophagitis; F41.9 Anxiety disorder, unspecified; F32.A Depression, unspecified; Z85.038 Personal history of other malignant neoplasm of large intestine; Z86.718 Personal history of other venous thrombosis and embolism; Z79.4 Long term (current) use of insulin; Z79.899 Other long term (current) drug therapy

== ENCOUNTER → 2024-02-12 | Outpatient (CLI) | payer OTHER ==
[2024-02-12 09:52] LABS: BUN 28 mg/dl (9-23); CHLORIDE 104 mmol/L (98-107); POTASSIUM 4.3 mmol/L (3.4-5.1)
== END | disposition home or self-care (01) ==
LOC: WOUNDCARE 01:02 → LAB 01:02 → WOUNDCARE 01:47
PROVIDERS: Specialist; ATTEND Nurse Practitioner Family
DX: E11.622 Type 2 diabetes mellitus with other skin ulcer (principal); I83.018 Varicose veins of right lower extremity with ulcer other part of lower leg; L97.812 Non-pressure chronic ulcer of other part of right lower leg with fat layer exposed; I83.028 Varicose veins of left lower extremity with ulcer other part of lower leg; L97.821 Non-pressure chronic ulcer of other part of left lower leg limited to breakdown of skin; E11.65 Type 2 diabetes mellitus with hyperglycemia; E11.22 Type 2 diabetes mellitus with diabetic chronic kidney disease; I13.0 Hypertensive heart and chronic kidney disease with heart failure and stage 1 through stage 4 chronic kidney disease, or unspecified chronic kidney disease; N18.9 Chronic kidney disease, unspecified; I50.9 Heart failure, unspecified; I87.8 Other specified disorders of veins; I48.91 Unspecified atrial fibrillation; J44.9 Chronic obstructive pulmonary disease, unspecified; K21.9 Gastro-esophageal reflux disease without esophagitis; F41.9 Anxiety disorder, unspecified; F32.A Depression, unspecified; Z85.038 Personal history of other malignant neoplasm of large intestine; Z86.718 Personal history of other venous thrombosis and embolism; Z79.4 Long term (current) use of insulin; Z79.899 Other long term (current) drug therapy

== ENCOUNTER → 2024-02-15 | Outpatient (CLI) | payer OTHER | END | disposition home or self-care (01) | LOC: WOUNDCARE 01:39 | PROVIDERS: ATTEND Nurse Practitioner Family | DX: E11.622 Type 2 diabetes mellitus with other skin ulcer (principal); I83.018 Varicose veins of right lower extremity with ulcer other part of lower leg; L97.812 Non-pressure chronic ulcer of other part of right lower leg with fat layer exposed; I83.028 Varicose veins of left lower extremity with ulcer other part of lower leg; L97.821 Non-pressure chronic ulcer of other part of left lower leg limited to breakdown of skin; E11.65 Type 2 diabetes mellitus with hyperglycemia; E11.22 Type 2 diabetes mellitus with diabetic chronic kidney disease; I13.0 Hypertensive heart and chronic kidney disease with heart failure and stage 1 through stage 4 chronic kidney disease, or unspecified chronic kidney disease; N18.9 Chronic kidney disease, unspecified; I50.9 Heart failure, unspecified; I87.8 Other specified disorders of veins; I48.91 Unspecified atrial fibrillation; J44.9 Chronic obstructive pulmonary disease, unspecified; K21.9 Gastro-esophageal reflux disease without esophagitis; F41.9 Anxiety disorder, unspecified; F32.A Depression, unspecified; Z85.038 Personal history of other malignant neoplasm of large intestine; Z86.718 Personal history of other venous thrombosis and embolism; Z79.4 Long term (current) use of insulin; Z79.899 Other long term (current) drug therapy ==

== ENCOUNTER → 2024-02-22 | Outpatient (CLI) | payer OTHER | END | disposition home or self-care (01) | LOC: WOUNDCARE 02:50 | PROVIDERS: ATTEND Nurse Practitioner Family | DX: E11.622 Type 2 diabetes mellitus with other skin ulcer (principal); I83.018 Varicose veins of right lower extremity with ulcer other part of lower leg; L97.812 Non-pressure chronic ulcer of other part of right lower leg with fat layer exposed; I83.028 Varicose veins of left lower extremity with ulcer other part of lower leg; L97.821 Non-pressure chronic ulcer of other part of left lower leg limited to breakdown of skin; S81.812A Laceration without foreign body, left lower leg, initial encounter; E11.65 Type 2 diabetes mellitus with hyperglycemia; E11.22 Type 2 diabetes mellitus with diabetic chronic kidney disease; I13.0 Hypertensive heart and chronic kidney disease with heart failure and stage 1 through stage 4 chronic kidney disease, or unspecified chronic kidney disease; N18.9 Chronic kidney disease, unspecified; I50.9 Heart failure, unspecified; I87.8 Other specified disorders of veins; I48.91 Unspecified atrial fibrillation; J44.9 Chronic obstructive pulmonary disease, unspecified; K21.9 Gastro-esophageal reflux disease without esophagitis; F41.9 Anxiety disorder, unspecified; F32.A Depression, unspecified; Z85.038 Personal history of other malignant neoplasm of large intestine; Z86.718 Personal history of other venous thrombosis and embolism; Z79.4 Long term (current) use of insulin; Z79.899 Other long term (current) drug therapy; X58.XXXA Exposure to other specified factors, initial encounter; Y93.89 Activity, other specified; Y92.89 Other specified places as the place of occurrence of the external cause; Y99.8 Other external cause status ==

== ENCOUNTER → 2024-03-03 | Outpatient (CLI) | payer OTHER | END | disposition home or self-care (01) | LOC: WOUNDCARE 03:18 | PROVIDERS: ATTEND Nurse Practitioner Family | DX: E11.622 Type 2 diabetes mellitus with other skin ulcer (principal); I83.018 Varicose veins of right lower extremity with ulcer other part of lower leg; L97.812 Non-pressure chronic ulcer of other part of right lower leg with fat layer exposed; I83.028 Varicose veins of left lower extremity with ulcer other part of lower leg; L97.821 Non-pressure chronic ulcer of other part of left lower leg limited to breakdown of skin; E11.65 Type 2 diabetes mellitus with hyperglycemia; E11.22 Type 2 diabetes mellitus with diabetic chronic kidney disease; I13.0 Hypertensive heart and chronic kidney disease with heart failure and stage 1 through stage 4 chronic kidney disease, or unspecified chronic kidney disease; N18.9 Chronic kidney disease, unspecified; I50.9 Heart failure, unspecified; I87.8 Other specified disorders of veins; I48.91 Unspecified atrial fibrillation; J44.9 Chronic obstructive pulmonary disease, unspecified; K21.9 Gastro-esophageal reflux disease without esophagitis; F41.9 Anxiety disorder, unspecified; F32.A Depression, unspecified; Z85.038 Personal history of other malignant neoplasm of large intestine; Z86.718 Personal history of other venous thrombosis and embolism; Z79.4 Long term (current) use of insulin; Z79.899 Other long term (current) drug therapy ==

== ENCOUNTER → 2024-03-12 | Outpatient (CLI) | payer OTHER | END | disposition home or self-care (01) | LOC: WOUNDCARE 01:12 | PROVIDERS: ATTEND Nurse Practitioner Family | DX: E11.622 Type 2 diabetes mellitus with other skin ulcer (principal); I83.018 Varicose veins of right lower extremity with ulcer other part of lower leg; L97.818 Non-pressure chronic ulcer of other part of right lower leg with other specified severity; I83.028 Varicose veins of left lower extremity with ulcer other part of lower leg; L97.821 Non-pressure chronic ulcer of other part of left lower leg limited to breakdown of skin; E11.65 Type 2 diabetes mellitus with hyperglycemia; E11.22 Type 2 diabetes mellitus with diabetic chronic kidney disease; I13.0 Hypertensive heart and chronic kidney disease with heart failure and stage 1 through stage 4 chronic kidney disease, or unspecified chronic kidney disease; N18.9 Chronic kidney disease, unspecified; I50.9 Heart failure, unspecified; I87.8 Other specified disorders of veins; I48.91 Unspecified atrial fibrillation; J44.9 Chronic obstructive pulmonary disease, unspecified; K21.9 Gastro-esophageal reflux disease without esophagitis; F41.9 Anxiety disorder, unspecified; F32.A Depression, unspecified; Z85.038 Personal history of other malignant neoplasm of large intestine; Z86.718 Personal history of other venous thrombosis and embolism; Z79.4 Long term (current) use of insulin; Z79.899 Other long term (current) drug therapy ==

== ENCOUNTER → 2024-03-14 | Outpatient (CLI) | payer OTHER ==
[2024-03-14 12:15] LABS: BUN 23 mg/dl (9-23); CHLORIDE 100 mmol/L (98-107); POTASSIUM 4.2 mmol/L (3.4-5.1)
== END | disposition home or self-care (01) ==
LOC: LAB 11:30
PROVIDERS: ATTEND Specialist
DX: I11.0 Hypertensive heart disease with heart failure (principal); I50.20 Unspecified systolic (congestive) heart failure; I48.0 Paroxysmal atrial fibrillation; R06.09 Other forms of dyspnea; R53.83 Other fatigue

== ENCOUNTER → 2024-03-25 | Outpatient (CLI) | payer OTHER ==
[2024-03-25 14:21] LABS: BUN 22 mg/dl (9-23); CHLORIDE 101 mmol/L (98-107)
== END | disposition home or self-care (01) ==
LOC: LAB 13:41
PROVIDERS: ATTEND Specialist
DX: I50.32 Chronic diastolic (congestive) heart failure (principal)

== ENCOUNTER 2024-04-07 16:20 | Emergency (ER) | payer OTHER ==
[~2024-04-07] VITALS: Ht 187.9 cm; Wt 122.5 kg
[2024-04-07 16:47] VITALS: BP 132/72
[2024-04-07 16:58] LABS: BASO # 0.1 10*3/uL (0.0-0.1); BASO % 0.6 % (0.0-1.0); EOS # 0.1 10*3/uL (0.0-0.4); EOS % 1.1 % (1.0-4.0); HEMATOCRIT 39.6 % (42.0-52.0); LYMPH # 3.2 10*3/uL (1.3-4.4); LYMPH % 31.7 % (27.0-41.0); MEAN CELL VOLUME 69.7 fl (80.0-94.0); MEAN CORPUSCULAR HGB 22.4 pg (27.0-31.0); MEAN CORPUSCULAR HGB CONC 32.1 g/dl (33.0-37.0); MEAN PLATELET VOLUME 9.4 fl (9.6-12.3); MONO # 0.9 10*3/uL (0.1-1.0); MONO % 8.4 % (3.0-9.0); NEUT # 5.9 10*3/uL (2.3-7.9); NEUT % 57.5 % (47.0-73.0); PLATELET COUNT AUTOMATED 424 10*3/uL (130-400); RED BLOOD COUNT 5.68 10*6/uL (4.50-5.90); RED CELL DISTRI WIDTH 16.7 % (0-14.5); WHITE BLOOD COUNT 10.2 10*3/uL (4.8-10.8)
[2024-04-07 17:11] LABS: ACT PARTIAL THROMBO TIME 28.3 SECONDS (20.0-32.1)
[2024-04-07 17:15] LABS: TOTAL PROTEIN 7.6 gm/dL (6.0-8.0)
[2024-04-07] MEDS ORDERED: SODIUM CHLORIDE 0.9% 500 ML IV ONE (17:35)
== END 2024-04-07 18:04 | disposition home or self-care (01) ==
LOC: ED 16:20
PROVIDERS: Internal Medicine
DX: R07.89 Other chest pain (principal); E11.9 Type 2 diabetes mellitus without complications; J44.9 Chronic obstructive pulmonary disease, unspecified; I11.0 Hypertensive heart disease with heart failure; F41.9 Anxiety disorder, unspecified; G43.909 Migraine, unspecified, not intractable, without status migrainosus; Z86.718 Personal history of other venous thrombosis and embolism; Z88.5 Allergy status to narcotic agent; Z88.1 Allergy status to other antibiotic agents; Z88.6 Allergy status to analgesic agent; Z88.8 Allergy status to other drugs, medicaments and biological substances; Z98.890 Other specified postprocedural states

== ENCOUNTER 2024-04-09 05:45 | Emergency (ER) | payer OTHER ==
[~2024-04-09] VITALS: Ht 187.9 cm; Wt 124.7 kg
[2024-04-09] MEDS ORDERED: Ondansetron Hydrochloride 4 MG/2 ML VIAL IV ONE (06:20)
[2024-04-09] MEDS ORDERED: HYDROmorphONE Hydrochloride 1 MG/ML SYR IV ONE (06:20)
[2024-04-09 06:40] LABS: HEMATOCRIT 42.1 % (42.0-52.0); MANUAL DIFF REFLEX YES; MEAN CELL VOLUME 70.8 fl (80.0-94.0); MEAN CORPUSCULAR HGB CONC 31.1 g/dl (33.0-37.0); MEAN PLATELET VOLUME 9.7 fl (9.6-12.3); PLATELET COUNT AUTOMATED 421 10*3/uL (130-400); RED BLOOD COUNT 5.95 10*6/uL (4.50-5.90); RED CELL DISTRI WIDTH 17.4 % (0-14.5); WHITE BLOOD COUNT 25.2 10*3/uL (4.8-10.8)
[2024-04-09 07:00] LABS: ALKALINE PHOSPHATASE 110 U/L (46-116); BUN 31 mg/dl (9-23); CHLORIDE 98 mmol/L (98-107); LIPASE 119 U/L (12-53); POTASSIUM 4.3 mmol/L (3.4-5.1); TOTAL PROTEIN 7.8 gm/dL (6.0-8.0)
[2024-04-09 07:02] LABS: SGPT/ALT < 7 U/L (5-49)
[2024-04-09 07:10] LABS: TOTAL CELLS COUNTED 100 #CELLS
[2024-04-09 07:11] LABS: MICROCYTOSIS SLIGHT; PLATELET SUFFICIENCY HIGH (NORMAL); POLYCHROMASIA SLIGHT
[2024-04-09] MEDS ORDERED: SODIUM CHLORIDE 0.9% 1,000 ML IV ONE ×2 (07:30→11:25)
[2024-04-09] MEDS ORDERED: HYDROmorphONE Hydrochloride 0.5 MG/0.5 ML SYRINGE IV ONE (09:45)
[2024-04-09] MEDS ORDERED: NOREPINEPHRINE BITARTRATE/D5W 250 ML IV SCH (11:45)
[2024-04-09] MEDS ORDERED: Vancomycin Hydrochloride 250 ML IV ONE (12:05)
[2024-04-09] MEDS ORDERED: Piperacillin Sodium/Tazobact 50 ML IV ONE (12:05)
[2024-04-09] MEDS ORDERED: SODIUM CHLORIDE 0.9% 1,000 ML IV SCH (12:10)
[2024-04-09 13:50] VITALS: BP 96/49
== END 2024-04-09 14:01 | disposition short-term general hospital (02) ==
LOC: ED 05:45
PROVIDERS: Emergency Medicine
DX: K56.609 Unspecified intestinal obstruction, unspecified as to partial versus complete obstruction (principal); K63.89 Other specified diseases of intestine; E11.22 Type 2 diabetes mellitus with diabetic chronic kidney disease; I12.9 Hypertensive chronic kidney disease with stage 1 through stage 4 chronic kidney disease, or unspecified chronic kidney disease; N18.31 Chronic kidney disease, stage 3a; I95.9 Hypotension, unspecified; F41.9 Anxiety disorder, unspecified; J45.909 Unspecified asthma, uncomplicated; J44.9 Chronic obstructive pulmonary disease, unspecified; E78.5 Hyperlipidemia, unspecified; K21.9 Gastro-esophageal reflux disease without esophagitis; E66.9 Obesity, unspecified; Z93.3 Colostomy status; Z88.8 Allergy status to other drugs, medicaments and biological substances; Z88.5 Allergy status to narcotic agent; Z88.1 Allergy status to other antibiotic agents; Z79.899 Other long term (current) drug therapy; Z79.4 Long term (current) use of insulin; Z79.2 Long term (current) use of antibiotics; Z68.30 Body mass index [BMI] 30.0-30.9, adult

== ENCOUNTER → 2024-04-29 | Outpatient (CLI) | payer OTHER ==
[~2024-04-29] MED LIST changes: +METHOCARBAMOL750 M1 PO
[2024-04-29 12:05] LABS: POTASSIUM 4.2 mmol/L (3.4-5.1)
== END | disposition home or self-care (01) ==
LOC: LAB 11:13
DX: R78.81 Bacteremia (principal)

== ENCOUNTER → 2024-05-02 | Outpatient (CLI) | payer OTHER | END | disposition home or self-care (01) | LOC: RAD 11:42 | PROVIDERS: ATTEND Chiropractor | DX: S22.32XA Fracture of one rib, left side, initial encounter for closed fracture (principal); R07.89 Other chest pain; X58.XXXA Exposure to other specified factors, initial encounter; Y93.89 Activity, other specified; Y92.89 Other specified places as the place of occurrence of the external cause; Y99.8 Other external cause status ==

== ENCOUNTER 2024-05-06 03:18 | Emergency (ER) | payer OTHER ==
[~2024-05-06] VITALS: Ht 187.9 cm; Wt 122.5 kg
[~2024-05-06 03:18] MED LIST changes: -METHOCARBAMOL750 M1 PO
[2024-05-06 03:40] VITALS: BP 128/78
[2024-05-06] MEDS ORDERED: methylPREDNISolone sod succ 125 MG VIAL IM ONE (03:40)
[2024-05-06] MEDS ORDERED: METHOCARBAMOL 500 MG TAB PO ONE (03:40)
[2024-05-06] MEDS ORDERED: METHOCARBAMOL750 M1 PO (03:43)
[2024-05-06] MEDS ORDERED: PREDNISONE20 M1 PO (03:43)
== END 2024-05-06 04:09 | disposition home or self-care (01) ==
LOC: ED 03:18
DX: S29.012A Strain of muscle and tendon of back wall of thorax, initial encounter (principal); E11.9 Type 2 diabetes mellitus without complications; J44.9 Chronic obstructive pulmonary disease, unspecified; I50.9 Heart failure, unspecified; F41.9 Anxiety disorder, unspecified; G43.909 Migraine, unspecified, not intractable, without status migrainosus; Z86.718 Personal history of other venous thrombosis and embolism; Z88.5 Allergy status to narcotic agent; Z88.1 Allergy status to other antibiotic agents; Z88.6 Allergy status to analgesic agent; Z88.8 Allergy status to other drugs, medicaments and biological substances; Z98.890 Other specified postprocedural states; X58.XXXA Exposure to other specified factors, initial encounter; Y93.89 Activity, other specified; Y92.009 Unspecified place in unspecified non-institutional (private) residence as the place of occurrence of the external cause; Y99.8 Other external cause status

== ENCOUNTER 2024-05-08 16:54 | Emergency (ER) | payer OTHER ==
[~2024-05-08] VITALS: Ht 187.9 cm; Wt 123.8 kg
[~2024-05-08 16:54] MED LIST changes: +METHOCARBAMOL750 M1 PO
[2024-05-08] MEDS ORDERED: SODIUM CHLORIDE 0.9% 500 ML IV ONE ×2 (17:30→20:40)
[2024-05-08] MEDS ORDERED: Ondansetron Hydrochloride 4 MG/2 ML VIAL IV ONE ×2 (17:30→23:00)
[2024-05-08 17:46] LABS: BASO % 0.2 % (0.0-1.0); EOS % 0.2 % (1.0-4.0); HEMATOCRIT 40.7 % (42.0-52.0); LYMPH # 1.1 10*3/uL (1.3-4.4); LYMPH % 8.8 % (27.0-41.0); MEAN CELL VOLUME 69.1 fl (80.0-94.0); MEAN CORPUSCULAR HGB 21.4 pg (27.0-31.0); MEAN PLATELET VOLUME 9.3 fl (9.6-12.3); MONO # 1.3 10*3/uL (0.1-1.0); MONO % 9.7 % (3.0-9.0); NEUT # 10.4 10*3/uL (2.3-7.9); NEUT % 80.6 % (47.0-73.0); PLATELET COUNT AUTOMATED 452 10*3/uL (130-400); RED BLOOD COUNT 5.89 10*6/uL (4.50-5.90); RED CELL DISTRI WIDTH 17.7 % (0-14.5); WHITE BLOOD COUNT 12.9 10*3/uL (4.8-10.8)
[2024-05-08 17:57] LABS: ACT PARTIAL THROMBO TIME 27.1 SECONDS (20.0-32.1)
[2024-05-08 18:07] LABS: ALKALINE PHOSPHATASE 140 U/L (46-116); BUN 56 mg/dl (9-23); CHLORIDE 83 mmol/L (98-107); LIPASE 69 U/L (12-53); POTASSIUM 4.5 mmol/L (3.4-5.1); TOTAL PROTEIN 8.6 gm/dL (6.0-8.0)
[2024-05-08 18:09] LABS: SGPT/ALT < 7 U/L (5-49)
[2024-05-08] MEDS ORDERED: METRONIDAZOLE 100 ML IV ONE (18:35)
[2024-05-08] MEDS ORDERED: INSULIN REGULAR, HUMAN 1 UNIT/0.01 ML IV ONE (18:40)
[2024-05-08] MEDS ORDERED: Piperacillin Sodium/Tazobact 50 ML IV ONE (18:40)
[2024-05-08 19:13] LABS: VENOUS BLOOD GAS O2 SAT 74.4 % (60.0-85.0)
[2024-05-08] MEDS ORDERED: LORazepam 2 MG/ML VIAL IV ONE (20:20)
[2024-05-08] MEDS ORDERED: SODIUM CHLORIDE 0.9% 1,000 ML IV ONE (21:50)
[2024-05-09] MEDS ORDERED: Piperacillin Sodium/Tazobact 0 ML IV SCH (01:25)
[2024-05-09] MEDS ORDERED: Piperacillin Sodium/Tazobact 50 ML IV ONE (01:30)
[2024-05-09 01:43] VITALS: BP 123/72
== END 2024-05-09 03:22 | disposition short-term general hospital (02) ==
LOC: ED 16:54
PROVIDERS: Nurse Practitioner
DX: A41.9 Sepsis, unspecified organism (principal); R65.20 Severe sepsis without septic shock; K56.609 Unspecified intestinal obstruction, unspecified as to partial versus complete obstruction; E11.9 Type 2 diabetes mellitus without complications; J44.9 Chronic obstructive pulmonary disease, unspecified; I50.9 Heart failure, unspecified; F41.9 Anxiety disorder, unspecified; G43.909 Migraine, unspecified, not intractable, without status migrainosus; R11.2 Nausea with vomiting, unspecified; Z86.718 Personal history of other venous thrombosis and embolism; Z88.5 Allergy status to narcotic agent; Z88.1 Allergy status to other antibiotic agents; Z88.6 Allergy status to analgesic agent; Z88.8 Allergy status to other drugs, medicaments and biological substances; Z98.890 Other specified postprocedural states

== ENCOUNTER 2024-05-29 03:11 | Emergency (ER) | payer OTHER ==
[~2024-05-29] VITALS: Ht 187.9 cm; Wt 127.5 kg
[2024-05-29] MEDS ORDERED: Naloxone Hydrochloride 2 MG/2 ML SYR IV ONE (03:20)
[2024-05-29 03:40] LABS: BASO % 0.2 % (0.0-1.0); EOS % 0.1 % (1.0-4.0); HEMATOCRIT 31.7 % (42.0-52.0); LYMPH # 0.6 10*3/uL (1.3-4.4); LYMPH % 4.3 % (27.0-41.0); MEAN CORPUSCULAR HGB 21.4 pg (27.0-31.0); MEAN CORPUSCULAR HGB CONC 29.3 g/dl (33.0-37.0); MONO # 0.9 10*3/uL (0.1-1.0); MONO % 6.3 % (3.0-9.0); NEUT # 12.2 10*3/uL (2.3-7.9); NEUT % 88.4 % (47.0-73.0); PLATELET COUNT AUTOMATED 361 10*3/uL (130-400); RED BLOOD COUNT 4.34 10*6/uL (4.50-5.90); RED CELL DISTRI WIDTH 18.7 % (0-14.5); WHITE BLOOD COUNT 13.8 10*3/uL (4.8-10.8)
[2024-05-29] MEDS ORDERED: Midazolam Hydrochloride 5 MG/5 ML VIAL IV ONE (03:45)
[2024-05-29] MEDS ORDERED: Midazolam Hydrochloride 5 MG/5 ML VIAL ONE (03:57)
[2024-05-29 03:58] LABS: ALKALINE PHOSPHATASE 153 U/L (46-116); BUN 46 mg/dl (9-23); CHLORIDE 95 mmol/L (98-107); POTASSIUM 5.5 mmol/L (3.4-5.1); TOTAL PROTEIN 6.6 gm/dL (6.0-8.0)
[2024-05-29 04:00] LABS: SGPT/ALT < 7 U/L (5-49)
[2024-05-29 04:26] LABS: VENOUS BLOOD GAS O2 SAT 67.6 % (60.0-85.0)
[2024-05-29 04:41] LABS: BILIRUBIN Negative (Negative); BLOOD 1+ (Negative); CLARITY Turbid (Clear); COLOR Yellow (Yellow); GLUCOSE Trace (Negative); KETONE Trace (Negative); LEUKO ESTERASE 3+ (Negative); NITRITE Negative (Negative); PH 5.5 (4.5-8.0); UROBILINOGEN 0.2 E.U./dl (0.0-1.0)
[2024-05-29 04:53] LABS: WBC TNTC wbc/hpf (0-5)
[2024-05-29 04:54] LABS: YEAST 3+
[2024-05-29 05:07] LABS: URINE AMPHETAMINES Negative (1000ng/ml); URINE BARBITURATES Negative (200ng/ml); URINE BENZODIAZEPINES Negative (200ng/ml); URINE CANNABINOIDS (THC) Negative (50ng/ml); URINE COCAINE Negative (300ng/ml); URINE METHADONE Negative (300ng/ml); URINE OPIATES Positive (300ng/ml); URINE PHENCYCLIDINE Negative (25ng/ml)
[2024-05-29] MEDS ORDERED: BUMETANIDE2 MG PO (05:10)
[2024-05-29] MEDS ORDERED: CARDIZEM CD240 M1 PO (05:11)
[2024-05-29] MEDS ORDERED: GLYBURIDE5 MG PO (05:16)
[2024-05-29] MEDS ORDERED: Meclizine25 MG PO (05:22)
[2024-05-29] MEDS ORDERED: Ceftriaxone Sodium 1 GM/10 ML SYR IV ONE (09:50)
[2024-05-29] MEDS ORDERED: Albuterol Sulfate 0.63 MG/3 ML VIAL NEB ONE ×2 (09:55→10:27)
[2024-05-29] MEDS ORDERED: SODIUM CHLORIDE 0.9% 1,000 ML IV ONE (09:55)
[2024-05-29] MEDS ORDERED: INSULIN REGULAR, HUMAN 1 UNIT/0.01 ML IV ONE ×2 (10:00→10:25)
[2024-05-29] MEDS ORDERED: DEXTROSE 10 % IN WATER 250 ML DEHP.FR.BG IV ONE (10:00)
[2024-05-29] MEDS ORDERED: Vancomycin Hydrochloride 250 ML IV ONE (10:50)
[2024-05-29 11:33] LABS: ABG O2 SATURATION 94.5 % (94.0-98.0); ARTERIAL BLOOD GAS PO2 81.2 mmHg (83.0-108.0)
[2024-05-29 11:44] LABS: ABG BASE EXCESS -8.7 mmol/L (-2.0-3.0); ARTERIAL BLOOD GAS PH 7.244 (7.350-7.450)
[2024-05-29 14:43] VITALS: BP 128/62
[2024-05-29] MEDS ORDERED: Piperacillin Sodium/Tazobact 2.25 GM in SODIUM CHLORIDE 0.9% 50 ML IV ONE (15:15)
== END 2024-05-29 18:55 | disposition short-term general hospital (02) ==
LOC: ED 03:11
PROVIDERS: Emergency Medicine
DX: A41.50 Gram-negative sepsis, unspecified (principal); Z20.822 Contact with and (suspected) exposure to COVID-19; R65.20 Severe sepsis without septic shock; I95.9 Hypotension, unspecified; M46.43 Discitis, unspecified, cervicothoracic region; E87.1 Hypo-osmolality and hyponatremia; N17.9 Acute kidney failure, unspecified; I50.9 Heart failure, unspecified; E78.5 Hyperlipidemia, unspecified; K21.9 Gastro-esophageal reflux disease without esophagitis; D63.1 Anemia in chronic kidney disease; E11.22 Type 2 diabetes mellitus with diabetic chronic kidney disease; I13.0 Hypertensive heart and chronic kidney disease with heart failure and stage 1 through stage 4 chronic kidney disease, or unspecified chronic kidney disease; N18.31 Chronic kidney disease, stage 3a; G43.909 Migraine, unspecified, not intractable, without status migrainosus; E11.65 Type 2 diabetes mellitus with hyperglycemia; F41.9 Anxiety disorder, unspecified; Z88.5 Allergy status to narcotic agent; Z88.8 Allergy status to other drugs, medicaments and biological substances; Z88.6 Allergy status to analgesic agent; Z88.1 Allergy status to other antibiotic agents; Z86.718 Personal history of other venous thrombosis and embolism; Z98.890 Other specified postprocedural states; Z79.899 Other long term (current) drug therapy

== ENCOUNTER 2024-06-16 14:42 | Emergency (ER) | payer OTHER ==
[~2024-06-16] VITALS: Ht 187.9 cm; Wt 110.7 kg
[~2024-06-16 14:42] MED LIST changes: +CARDIZEM CD240 M1 PO
[2024-06-16] MEDS ORDERED: SODIUM CHLORIDE 0.9% 1,000 ML IV ONE (14:50)
[2024-06-16 15:08] LABS: BASO # 0.2 10*3/uL (0.0-0.1); BASO % 1.5 % (0.0-1.0); EOS # 0.3 10*3/uL (0.0-0.4); EOS % 3.3 % (1.0-4.0); HEMATOCRIT 35.8 % (42.0-52.0); LYMPH # 3.2 10*3/uL (1.3-4.4); MEAN CELL VOLUME 77.2 fl (80.0-94.0); MEAN CORPUSCULAR HGB 23.3 pg (27.0-31.0); MEAN CORPUSCULAR HGB CONC 30.2 g/dl (33.0-37.0); MEAN PLATELET VOLUME 9.1 fl (9.6-12.3); MONO # 1.1 10*3/uL (0.1-1.0); MONO % 11.4 % (3.0-9.0); NEUT # 4.9 10*3/uL (2.3-7.9); NEUT % 49.1 % (47.0-73.0); PLATELET COUNT AUTOMATED 498 10*3/uL (130-400); RED BLOOD COUNT 4.64 10*6/uL (4.50-5.90); RED CELL DISTRI WIDTH 19.7 % (0-14.5); WHITE BLOOD COUNT 9.9 10*3/uL (4.8-10.8)
[2024-06-16 15:22] LABS: BUN 26 mg/dl (9-23); CHLORIDE 94 mmol/L (98-107); POTASSIUM 5.1 mmol/L (3.4-5.1)
[2024-06-16] MEDS ORDERED: IOHEXOL 300 MG/ML 100 ML VIAL IV ONE (15:35)
[2024-06-16] MEDS ORDERED: IOHEXOL 300 MG/ML 100 ML VIAL ONE (15:57)
[2024-06-16] MEDS ORDERED: HEPARIN SODIUM 300 UNITS/3 ML SYR IV ONE (16:20)
[2024-06-16] MEDS ORDERED: Vancomycin Hydrochloride 250 ML IV ONE (17:55)
[2024-06-16] MEDS ORDERED: SODIUM CHLORIDE 0.9% 1,000 ML IV SCH (17:55)
[2024-06-16] MEDS ORDERED: Piperacillin Sodium/Tazobact 50 ML IV ONE (17:55)
[2024-06-16 19:19] LABS: BILIRUBIN Negative (Negative); BLOOD Negative (Negative); CLARITY Cloudy (Clear); COLOR Yellow (Yellow); GLUCOSE 3+ (Negative); KETONE Negative (Negative); LEUKO ESTERASE 2+ (Negative); NITRITE Negative (Negative); PH 6.5 (4.5-8.0); SPECIFIC GRAVITY 1.025 (1.001-1.030); UROBILINOGEN 0.2 E.U./dl (0.0-1.0)
[2024-06-16 19:27] LABS: RBC 0-2 rbc/hpf (0-2); WBC 41-50 wbc/hpf (0-5)
[2024-06-16 19:29] LABS: BACTERIA 1+
[2024-06-16 19:30] LABS: YEAST 1+
[2024-06-16] MEDS ORDERED: Ondansetron Hydrochloride 4 MG/2 ML VIAL IV ONE (19:40)
[2024-06-16] MEDS ORDERED: HYDROmorphONE Hydrochloride 0.5 MG/0.5 ML SYRINGE IV ONE (19:40)
[2024-06-16 19:50] VITALS: BP 124/76
== END 2024-06-16 23:30 | disposition short-term general hospital (02) ==
LOC: ED 14:42
PROVIDERS: Internal Medicine
DX: A41.9 Sepsis, unspecified organism (principal); R65.21 Severe sepsis with septic shock; T81.49XA Infection following a procedure, other surgical site, initial encounter; E11.9 Type 2 diabetes mellitus without complications; J44.9 Chronic obstructive pulmonary disease, unspecified; J45.909 Unspecified asthma, uncomplicated; I50.9 Heart failure, unspecified; F41.9 Anxiety disorder, unspecified; G43.909 Migraine, unspecified, not intractable, without status migrainosus; Z86.718 Personal history of other venous thrombosis and embolism; Z88.5 Allergy status to narcotic agent; Z88.1 Allergy status to other antibiotic agents; Z88.6 Allergy status to analgesic agent; Z88.8 Allergy status to other drugs, medicaments and biological substances; Z98.890 Other specified postprocedural states

== ENCOUNTER 2024-10-20 13:24 | Emergency (ER) | payer OTHER ==
[~2024-10-20] VITALS: Ht 187.9 cm; Wt 108.9 kg
[2024-10-20 13:38] VITALS: BP 115/54
[2024-10-20 16:01] LABS: BASO # 0.1 10*3/uL (0.0-0.1); BASO % 0.8 % (0.0-1.0); EOS # 0.3 10*3/uL (0.0-0.4); EOS % 2.5 % (1.0-4.0); HEMATOCRIT 44.8 % (42.0-52.0); MEAN CELL VOLUME 72.4 fl (80.0-94.0); MEAN CORPUSCULAR HGB CONC 30.4 g/dl (33.0-37.0); MEAN PLATELET VOLUME 9.1 fl (9.6-12.3); MONO # 0.8 10*3/uL (0.1-1.0); MONO % 7.5 % (3.0-9.0); NEUT # 5.5 10*3/uL (2.3-7.9); NEUT % 51.4 % (47.0-73.0); PLATELET COUNT AUTOMATED 324 10*3/uL (130-400); RED BLOOD COUNT 6.19 10*6/uL (4.50-5.90); RED CELL DISTRI WIDTH 21.7 % (0-14.5); WHITE BLOOD COUNT 10.6 10*3/uL (4.8-10.8)
[2024-10-20 16:11] LABS: ACT PARTIAL THROMBO TIME 31.7 SECONDS (20.0-32.1)
[2024-10-20 16:34] LABS: ALKALINE PHOSPHATASE 154 U/L (46-116); BUN 19 mg/dl (9-23); CHLORIDE 102 mmol/L (98-107); POTASSIUM 3.2 mmol/L (3.4-5.1); TOTAL PROTEIN 7.6 gm/dL (6.0-8.0)
[2024-10-20 16:35] LABS: SGPT/ALT < 7 U/L (5-49)
[2024-10-20] MEDS ORDERED: HYDROmorphone Hydrochloride 1 MG/ML SYR IV ONE (18:25)
[2024-10-20] MEDS ORDERED: HYDROmorphone Hydrochloride 1 MG/ML SYR IM ONE (18:30)
[2024-10-20] MEDS ORDERED: KLOR-CON M2020 ME1 PO (19:02)
== END 2024-10-20 18:51 | disposition home or self-care (01) ==
LOC: ED 13:24
PROVIDERS: Internal Medicine
DX: M54.6 Pain in thoracic spine (principal); E87.6 Hypokalemia; E11.9 Type 2 diabetes mellitus without complications; J44.9 Chronic obstructive pulmonary disease, unspecified; I50.9 Heart failure, unspecified; F41.9 Anxiety disorder, unspecified; G43.909 Migraine, unspecified, not intractable, without status migrainosus; Z86.718 Personal history of other venous thrombosis and embolism; Z88.5 Allergy status to narcotic agent; Z88.1 Allergy status to other antibiotic agents; Z88.6 Allergy status to analgesic agent; Z88.8 Allergy status to other drugs, medicaments and biological substances; Z98.890 Other specified postprocedural states

== ENCOUNTER 2024-10-25 20:47 | Emergency (ER) | payer OTHER ==
[~2024-10-25] VITALS: Ht 187.9 cm; Wt 108.9 kg
[~2024-10-25 20:47] MED LIST changes: +KLOR-CON M2020 ME1 PO
[2024-10-25] MEDS ORDERED: IOHEXOL 300 MG/ML 100 ML VIAL IV ONE (21:35)
[2024-10-25] MEDS ORDERED: IOHEXOL 9 MG/ML (IODINE) ORAL SOLUTION PO ONE (21:35)
[2024-10-25] MEDS ORDERED: SODIUM CHLORIDE 0.9% 1,000 ML IV ONE (22:00)
[2024-10-25 22:05] LABS: BASO # 0.1 10*3/uL (0.0-0.1); BASO % 0.5 % (0.0-1.0); EOS # 0.4 10*3/uL (0.0-0.4); EOS % 3.1 % (1.0-4.0); HEMATOCRIT 38.9 % (42.0-52.0); MEAN CELL VOLUME 73.5 fl (80.0-94.0); MEAN CORPUSCULAR HGB 23.3 pg (27.0-31.0); MEAN CORPUSCULAR HGB CONC 31.6 g/dl (33.0-37.0); MEAN PLATELET VOLUME 9.3 fl (9.6-12.3); MONO % 8.4 % (3.0-9.0); NEUT # 7.6 10*3/uL (2.3-7.9); NEUT % 66.7 % (47.0-73.0); PLATELET COUNT AUTOMATED 305 10*3/uL (130-400); RED BLOOD COUNT 5.29 10*6/uL (4.50-5.90); RED CELL DISTRI WIDTH 22.1 % (0-14.5); WHITE BLOOD COUNT 11.3 10*3/uL (4.8-10.8)
[2024-10-25 22:24] LABS: ALKALINE PHOSPHATASE 150 U/L (46-116); BUN 15 mg/dl (9-23); CHLORIDE 105 mmol/L (98-107); LIPASE 40 U/L (12-53); POTASSIUM 3.9 mmol/L (3.4-5.1); TOTAL PROTEIN 6.5 gm/dL (6.0-8.0)
[2024-10-25 22:27] LABS: SGPT/ALT < 7 U/L (5-49)
[2024-10-26] MEDS ORDERED: MAGNESIUM CITRATE 296 ML BOT PO ONE (01:15)
[2024-10-26] MEDS ORDERED: MIRALAX17 GM PO (01:43)
[2024-10-26] MEDS ORDERED: GENTLE LAXATIVE5 M2 PO (01:43)
[2024-10-26] MEDS ORDERED: SENNA8.6 MG PO (01:43)
[2024-10-26 02:04] VITALS: BP 101/68
== END 2024-10-26 02:03 | disposition home or self-care (01) ==
LOC: ED 20:47
PROVIDERS: Internal Medicine
DX: K59.03 Drug induced constipation (principal); T40.2X5A Adverse effect of other opioids, initial encounter; E11.9 Type 2 diabetes mellitus without complications; J44.9 Chronic obstructive pulmonary disease, unspecified; I50.9 Heart failure, unspecified; F41.9 Anxiety disorder, unspecified; G43.909 Migraine, unspecified, not intractable, without status migrainosus; I48.91 Unspecified atrial fibrillation; Z86.718 Personal history of other venous thrombosis and embolism; Z88.5 Allergy status to narcotic agent; Z88.6 Allergy status to analgesic agent; Z88.8 Allergy status to other drugs, medicaments and biological substances; Z88.1 Allergy status to other antibiotic agents; Z98.890 Other specified postprocedural states; Y92.89 Other specified places as the place of occurrence of the external cause

== ENCOUNTER 2024-11-11 16:28 | Emergency (ER) | payer OTHER ==
[~2024-11-11] VITALS: Ht 187.9 cm; Wt 108.9 kg
[~2024-11-11 16:28] MED LIST changes: +GENTLE LAXATIVE5 M2 PO; +MIRALAX17 GM PO; +SENNA8.6 MG PO
[2024-11-11 17:17] VITALS: BP 124/70
[2024-11-11] MEDS ORDERED: Acetaminophen/Oxycodone 5 MG/325 MG TABLET PO ONE (19:40)
== END 2024-11-11 20:02 | disposition home or self-care (01) ==
LOC: ED 16:28
DX: G89.29 Other chronic pain (principal); M54.6 Pain in thoracic spine; E11.9 Type 2 diabetes mellitus without complications; J44.9 Chronic obstructive pulmonary disease, unspecified; I50.9 Heart failure, unspecified; F41.9 Anxiety disorder, unspecified; G43.909 Migraine, unspecified, not intractable, without status migrainosus; I48.91 Unspecified atrial fibrillation; Z86.718 Personal history of other venous thrombosis and embolism; Z88.8 Allergy status to other drugs, medicaments and biological substances; Z88.5 Allergy status to narcotic agent; Z88.1 Allergy status to other antibiotic agents; Z88.6 Allergy status to analgesic agent; Z98.890 Other specified postprocedural states

== ENCOUNTER → 2024-11-24 | Outpatient (CLI) | payer OTHER | END | disposition home or self-care (01) | LOC: RAD 03:26 | PROVIDERS: ATTEND Internal Medicine | DX: Z13.820 Encounter for screening for osteoporosis (principal); M81.0 Age-related osteoporosis without current pathological fracture ==

== ENCOUNTER 2024-12-21 00:47 | Emergency (ER) | payer OTHER ==
[~2024-12-21] VITALS: Ht 187.9 cm; Wt 105.9 kg
[2024-12-21] MEDS ORDERED: SODIUM CHLORIDE 0.9% 1,000 ML IV ONE (01:05)
[2024-12-21] MEDS ORDERED: IOHEXOL 300 MG/ML 100 ML VIAL IV ONE (01:10)
[2024-12-21] MEDS ORDERED: IOHEXOL 9 MG/ML (IODINE) ORAL SOLUTION PO ONE (01:10)
[2024-12-21 01:19] LABS: BASO # 0.1 10*3/uL (0.0-0.1); BASO % 0.6 % (0.0-1.0); EOS # 0.4 10*3/uL (0.0-0.4); EOS % 3.9 % (1.0-4.0); HEMATOCRIT 47.3 % (42.0-52.0); MEAN CELL VOLUME 78.1 fl (80.0-94.0); MEAN CORPUSCULAR HGB 24.9 pg (27.0-31.0); MEAN CORPUSCULAR HGB CONC 31.9 g/dl (33.0-37.0); MEAN PLATELET VOLUME 9.1 fl (9.6-12.3); MONO # 0.9 10*3/uL (0.1-1.0); MONO % 9.6 % (3.0-9.0); NEUT # 4.9 10*3/uL (2.3-7.9); NEUT % 52.6 % (47.0-73.0); PLATELET COUNT AUTOMATED 313 10*3/uL (130-400); RED BLOOD COUNT 6.06 10*6/uL (4.50-5.90); RED CELL DISTRI WIDTH 18.1 % (0-14.5); WHITE BLOOD COUNT 9.3 10*3/uL (4.8-10.8)
[2024-12-21] MEDS ORDERED: Ondansetron Hydrochloride 4 MG/2 ML VIAL IV ONE (01:30)
[2024-12-21 01:41] LABS: ALKALINE PHOSPHATASE 119 U/L (46-116); BUN 16 mg/dl (9-23); CHLORIDE 101 mmol/L (98-107); LIPASE 52 U/L (12-53); SGPT/ALT 10 U/L (5-49); TOTAL PROTEIN 7.4 gm/dL (6.0-8.0)
[2024-12-21] MEDS ORDERED: 'CLONIDINE0.1 MG PO (05:39)
[2024-12-21] MEDS ORDERED: ALDACTONE25 MG PO (05:46)
[2024-12-21] MEDS ORDERED: MIRALAX POWDER17 G1 PO (06:27)
[2024-12-21] MEDS ORDERED: MAGNESIUM CITRATE 296 ML BOT PO ONE (06:30)
[2024-12-21] MEDS ORDERED: Ketorolac Tromethamine 30 MG/ML VIAL IV ONE (06:30)
[2024-12-21 06:38] VITALS: BP 140/56
== END 2024-12-21 06:44 | disposition home or self-care (01) ==
LOC: ED 00:47
PROVIDERS: Internal Medicine
DX: K59.00 Constipation, unspecified (principal); R11.2 Nausea with vomiting, unspecified; Z88.8 Allergy status to other drugs, medicaments and biological substances; Z88.5 Allergy status to narcotic agent; Z88.1 Allergy status to other antibiotic agents; Z79.899 Other long term (current) drug therapy; Z79.4 Long term (current) use of insulin; Z79.84 Long term (current) use of oral hypoglycemic drugs

== ENCOUNTER 2025-01-12 18:13 | Emergency (ER) | payer OTHER ==
[~2025-01-12] VITALS: Ht 187.9 cm; Wt 1114.0 kg
[~2025-01-12 18:13] MED LIST changes: +'CLONIDINE0.1 MG PO; +ALDACTONE25 MG PO; +MIRALAX POWDER17 G1 PO
[2025-01-12] MEDS ORDERED: SODIUM CHLORIDE 0.9% 1,000 ML IV ONE (18:30)
[2025-01-12] MEDS ORDERED: Metoclopramide Hydrochloride 10 MG/2 ML VIAL IV ONE (18:30)
[2025-01-12] MEDS ORDERED: MORPHINE Sulfate 2 MG/ML SYR IV ONE (18:30)
[2025-01-12] MEDS ORDERED: diphenhydrAMINE hydrochloride 50 MG/ML VIAL IV ONE (18:30)
[2025-01-12 18:41] LABS: BASO # 0.1 10*3/uL (0.0-0.1); BASO % 0.6 % (0.0-1.0); EOS # 0.3 10*3/uL (0.0-0.4); EOS % 2.6 % (1.0-4.0); HEMATOCRIT 42.2 % (42.0-52.0); MEAN CELL VOLUME 78.4 fl (80.0-94.0); MEAN CORPUSCULAR HGB 25.8 pg (27.0-31.0); MEAN CORPUSCULAR HGB CONC 32.9 g/dl (33.0-37.0); MEAN PLATELET VOLUME 9.1 fl (9.6-12.3); MONO # 0.8 10*3/uL (0.1-1.0); MONO % 7.4 % (3.0-9.0); NEUT # 6.1 10*3/uL (2.3-7.9); PLATELET COUNT AUTOMATED 319 10*3/uL (130-400); RED BLOOD COUNT 5.38 10*6/uL (4.50-5.90); RED CELL DISTRI WIDTH 16.5 % (0-14.5); WHITE BLOOD COUNT 10.3 10*3/uL (4.8-10.8)
[2025-01-12 19:12] LABS: ALKALINE PHOSPHATASE 101 U/L (46-116); BUN 20 mg/dl (9-23); CHLORIDE 104 mmol/L (98-107); POTASSIUM 3.8 mmol/L (3.4-5.1); SGPT/ALT 17 U/L (5-49); TOTAL PROTEIN 7.1 gm/dL (6.0-8.0)
[2025-01-12 19:48] VITALS: BP 138/72
[2025-01-12 20:52] LABS: BILIRUBIN Negative (Negative); BLOOD 3+ (Negative); CLARITY Cloudy (Clear); COLOR Yellow (Yellow); GLUCOSE 3+ (Negative); KETONE Negative (Negative); LEUKO ESTERASE 1+ (Negative); NITRITE Negative (Negative); SPECIFIC GRAVITY 1.025 (1.001-1.030); UROBILINOGEN 0.2 E.U./dl (0.0-1.0)
[2025-01-12 21:09] LABS: RBC 41-50 rbc/hpf (0-2); WBC 31-40 wbc/hpf (0-5)
[2025-01-12 21:10] LABS: BACTERIA 1+; YEAST 1+
[2025-01-12] MEDS ORDERED: HYDROmorphONE Hydrochloride 0.5 MG/0.5 ML SYRINGE IV ONE (21:15)
[2025-01-12] MEDS ORDERED: Nitrofurantoin Monohydrate/N 100 MG CAP PO ONE (21:15)
[2025-01-12] MEDS ORDERED: NITROFURANTOIN100 M3 PO (21:33)
== END 2025-01-12 21:41 | disposition home or self-care (01) ==
LOC: ED 18:13
PROVIDERS: Emergency Medicine
DX: K29.70 Gastritis, unspecified, without bleeding (principal); N39.0 Urinary tract infection, site not specified; I13.0 Hypertensive heart and chronic kidney disease with heart failure and stage 1 through stage 4 chronic kidney disease, or unspecified chronic kidney disease; N18.9 Chronic kidney disease, unspecified; I50.9 Heart failure, unspecified; J44.9 Chronic obstructive pulmonary disease, unspecified; F32.A Depression, unspecified; F41.9 Anxiety disorder, unspecified; E78.5 Hyperlipidemia, unspecified; Z88.8 Allergy status to other drugs, medicaments and biological substances; Z88.5 Allergy status to narcotic agent; Z88.1 Allergy status to other antibiotic agents; Z88.6 Allergy status to analgesic agent; Z79.899 Other long term (current) drug therapy; Z79.4 Long term (current) use of insulin; Z98.890 Other specified postprocedural states

== ENCOUNTER 2025-01-25 17:59 | Emergency (ER) | payer OTHER ==
[~2025-01-25] VITALS: Ht 187.9 cm; Wt 111.1 kg
[~2025-01-25 17:59] MED LIST changes: +NITROFURANTOIN100 M3 PO
[2025-01-25 18:06] VITALS: BP 149/77
[2025-01-25] MEDS ORDERED: SODIUM CHLORIDE 0.9% 1,000 ML IV ONE (18:15)
[2025-01-25] MEDS ORDERED: MORPHINE Sulfate 2 MG/ML SYR IV ONE (18:20)
[2025-01-25 19:07] LABS: BASO # 0.1 10*3/uL (0.0-0.1); BASO % 0.9 % (0.0-1.0); EOS # 0.4 10*3/uL (0.0-0.4); EOS % 4.1 % (1.0-4.0); HEMATOCRIT 43.6 % (42.0-52.0); MEAN CELL VOLUME 79.9 fl (80.0-94.0); MEAN CORPUSCULAR HGB 25.8 pg (27.0-31.0); MEAN CORPUSCULAR HGB CONC 32.3 g/dl (33.0-37.0); MEAN PLATELET VOLUME 9.4 fl (9.6-12.3); MONO # 0.7 10*3/uL (0.1-1.0); MONO % 7.8 % (3.0-9.0); NEUT # 4.5 10*3/uL (2.3-7.9); NEUT % 51.7 % (47.0-73.0); PLATELET COUNT AUTOMATED 303 10*3/uL (130-400); RED BLOOD COUNT 5.46 10*6/uL (4.50-5.90); RED CELL DISTRI WIDTH 15.9 % (0-14.5); WHITE BLOOD COUNT 8.6 10*3/uL (4.8-10.8)
[2025-01-25 19:07] LABS: BILIRUBIN Negative (Negative); BLOOD 3+ (Negative); CLARITY Clear (Clear); COLOR Yellow (Yellow); GLUCOSE 3+ (Negative); KETONE Negative (Negative); LEUKO ESTERASE 1+ (Negative); NITRITE Negative (Negative); SPECIFIC GRAVITY 1.015 (1.001-1.030); UROBILINOGEN 0.2 E.U./dl (0.0-1.0)
[2025-01-25 19:22] LABS: BACTERIA 1+; RBC 51-100 rbc/hpf (0-2); WBC 21-30 wbc/hpf (0-5); YEAST 1+
[2025-01-25 19:23] LABS: ALKALINE PHOSPHATASE 94 U/L (46-116); BUN 25 mg/dl (9-23); CHLORIDE 105 mmol/L (98-107); LIPASE 36 U/L (12-53); POTASSIUM 4.3 mmol/L (3.4-5.1); TOTAL PROTEIN 7.1 gm/dL (6.0-8.0)
[2025-01-25 19:24] LABS: SGPT/ALT < 7 U/L (5-49)
[2025-01-25] MEDS ORDERED: SEPTDS PO (19:37)
[2025-01-25] MEDS ORDERED: Sulfamethoxazole/Trimethopri 1 TAB TAB PO ONE (19:40)
== END 2025-01-25 19:50 | disposition home or self-care (01) ==
LOC: ED 17:59
PROVIDERS: Physician Assistant Medical
DX: N21.0 Calculus in bladder (principal); N39.0 Urinary tract infection, site not specified; E11.9 Type 2 diabetes mellitus without complications; F41.9 Anxiety disorder, unspecified; I11.0 Hypertensive heart disease with heart failure; I50.9 Heart failure, unspecified; J44.9 Chronic obstructive pulmonary disease, unspecified; E78.5 Hyperlipidemia, unspecified; K21.9 Gastro-esophageal reflux disease without esophagitis; Z88.8 Allergy status to other drugs, medicaments and biological substances; Z88.5 Allergy status to narcotic agent; Z88.1 Allergy status to other antibiotic agents; Z79.899 Other long term (current) drug therapy; Z79.4 Long term (current) use of insulin; Z98.890 Other specified postprocedural states; Z85.038 Personal history of other malignant neoplasm of large intestine; Z86.718 Personal history of other venous thrombosis and embolism; Z85.72 Personal history of non-Hodgkin lymphomas

== ENCOUNTER → 2025-02-03 | Outpatient (CLI) | payer OTHER ==
[~2025-02-03] MED LIST changes: +ALENDRONATE SOD70 M1 PO; +DOXYCYCLINE MO100 MG PO; +LOSARTAN POTASS25 M1 PO; +MOUNJARO10 MG/0.1 SQ; +OXYBUTYNIN5 MG PO; +OYSTER SHELL 51 EAC5 PO; +REXULTI3 MG PO; +VISTARIL25 MG PO
[2025-02-03 12:28] LABS: BILIRUBIN Negative (Negative); BLOOD 3+ (Negative); CLARITY Turbid (Clear); COLOR Orange (Yellow); GLUCOSE 2+ (Negative); KETONE Negative (Negative); LEUKO ESTERASE 3+ (Negative); NITRITE Negative (Negative); PH 5.5 (4.5-8.0); SPECIFIC GRAVITY 1.015 (1.001-1.030); UROBILINOGEN 0.2 E.U./dl (0.0-1.0)
[2025-02-03 12:42] LABS: POTASSIUM 4.4 mmol/L (3.4-5.1)
[2025-02-03 12:54] LABS: RBC TNTC rbc/hpf (0-2); WBC TNTC wbc/hpf (0-5)
== END | disposition home or self-care (01) ==
LOC: LAB 11:36
PROVIDERS: ATTEND Urology
DX: R31.0 Gross hematuria (principal)

== ENCOUNTER → 2025-02-12 | Outpatient (CLI) | payer OTHER ==
[2025-02-12 15:37] LABS: BILIRUBIN Negative (Negative); BLOOD 2+ (Negative); CLARITY Clear (Clear); COLOR Yellow (Yellow); GLUCOSE 3+ (Negative); KETONE Negative (Negative); LEUKO ESTERASE 2+ (Negative); NITRITE Negative (Negative); PH 5.5 (4.5-8.0); SPECIFIC GRAVITY 1.015 (1.001-1.030); UROBILINOGEN 0.2 E.U./dl (0.0-1.0)
[2025-02-12 15:53] LABS: BACTERIA 1+; RBC 21-30 rbc/hpf (0-2); WBC 31-40 wbc/hpf (0-5); YEAST 1+
== END | disposition home or self-care (01) ==
LOC: LAB 03:33
PROVIDERS: ATTEND Student in an Organized Health Care Education/Training Program
DX: N39.0 Urinary tract infection, site not specified (principal); R31.9 Hematuria, unspecified

== ENCOUNTER → 2025-02-26 | Outpatient (CLI) | payer OTHER ==
[2025-02-26 11:19] LABS: BUN 18 mg/dl (9-23)
== END | disposition home or self-care (01) ==
LOC: LAB 08:39
PROVIDERS: ATTEND Urology
DX: R31.0 Gross hematuria (principal)

== ENCOUNTER → 2025-03-02 | Outpatient (CLI) | payer OTHER ==
[~2025-03-02] MED LIST changes: +IOHEXOL 300 MG/ML 100 ML VIAL IV ONE; +IOHEXOL 300 MG/ML 100 ML VIAL ONE
== END | disposition home or self-care (01) ==
LOC: CT 02-04 00:14 → LAB 02-04 11:00 → CT 02-04 11:00
PROVIDERS: ATTEND Urology
DX: K43.5 Parastomal hernia without obstruction or gangrene (principal); I70.0 Atherosclerosis of aorta; R31.0 Gross hematuria; Z90.49 Acquired absence of other specified parts of digestive tract

== ENCOUNTER → 2025-07-17 | Outpatient (CLI) | payer OTHER ==
[~2025-07-17] MED LIST changes: -IOHEXOL 300 MG/ML 100 ML VIAL IV ONE; -IOHEXOL 300 MG/ML 100 ML VIAL ONE
[2025-07-17 12:04] LABS: MEAN CELL VOLUME 82.5 fl (80.0-94.0); MEAN CORPUSCULAR HGB 25.5 pg (27.0-31.0); MEAN PLATELET VOLUME 9.5 fl (9.6-12.3); NUCLEATED RED BLOOD CELL 0.0 % (0.0-0.0); NUCLEATED RED BLOOD CELL 0.0 10*3/uL (0.0-0.0); PLATELET COUNT AUTOMATED 339.0 10*3/uL (130-400); RED CELL DISTRI WIDTH 13.7 % (0-14.5)
[2025-07-17 12:39] LABS: BUN 22.0 mg/dl (9-23)
== END | disposition home or self-care (01) ==
LOC: LAB 11:06
PROVIDERS: ATTEND Urology
DX: N40.1 Benign prostatic hyperplasia with lower urinary tract symptoms (principal); R39.12 Poor urinary stream; Z79.01 Long term (current) use of anticoagulants

== ENCOUNTER 2025-08-22 23:20 | Emergency (ER) | payer OTHER ==
[~2025-08-22] VITALS: Ht 187.9 cm; Wt 115.7 kg
[2025-08-22 23:53] LABS: BILIRUBIN 2+ (Negative); BLOOD Trace-Lysed (Negative); CLARITY Turbid (Clear); COLOR Red (Yellow); KETONE Trace (Negative); LEUKO ESTERASE 3+ (Negative); NITRITE Positive (Negative); SPECIFIC GRAVITY >= 1.030 (1.001-1.030); UROBILINOGEN 0.2 E.U./dl (0.0-1.0)
[2025-08-22 23:54] LABS: PH 6.0 (4.5-8.0)
[2025-08-23 00:06] LABS: BACTERIA 2+; RBC TNTC rbc/hpf (0-2); WBC 21-30 wbc/hpf (0-5)
[2025-08-23 01:24] LABS: BASO # 0.1 10*3/uL (0.0-0.1); BASO % 0.8 % (0.0-1.0); EOS # 0.3 10*3/uL (0.0-0.4); EOS % 3.5 % (1.0-4.0); MEAN CELL VOLUME 79.8 fl (80.0-94.0); MEAN CORPUSCULAR HGB 24.2 pg (27.0-31.0); MEAN PLATELET VOLUME 9.6 fl (9.6-12.3); MONO # 0.7 10*3/uL (0.1-1.0); MONO % 7.8 % (3.0-9.0); NEUT # 4.8 10*3/uL (2.3-7.9); NEUT % 51.4 % (47.0-73.0); NUCLEATED RED BLOOD CELL 0.0 % (0.0-0.0); NUCLEATED RED BLOOD CELL 0.0 10*3/uL (0.0-0.0); PLATELET COUNT AUTOMATED 361 10*3/uL (130-400); RED CELL DISTRI WIDTH 14.9 % (0-14.5)
[2025-08-23 01:48] LABS: BUN 13 mg/dl (9-23)
[2025-08-23 06:17] VITALS: BP 114/78
[2025-08-23] MEDS ORDERED: CEPHALEXIN500 M1 PO (07:19)
== END 2025-08-23 07:40 | disposition home or self-care (01) ==
LOC: ED 23:20
PROVIDERS: Student in an Organized Health Care Education/Training Program
DX: N39.0 Urinary tract infection, site not specified (principal); E11.9 Type 2 diabetes mellitus without complications; J44.89 Other specified chronic obstructive pulmonary disease; F41.9 Anxiety disorder, unspecified; I50.9 Heart failure, unspecified; Z98.890 Other specified postprocedural states; Z88.5 Allergy status to narcotic agent; Z88.8 Allergy status to other drugs, medicaments and biological substances

== ENCOUNTER 2025-08-26 00:30 | Emergency (ER) | payer OTHER ==
[~2025-08-26] VITALS: Ht 187.9 cm; Wt 115.7 kg
[~2025-08-26 00:30] MED LIST changes: +CEPHALEXIN500 M1 PO
[2025-08-26 00:45] VITALS: BP 117/67
== END 2025-08-26 02:15 | disposition home or self-care (01) ==
LOC: ED 00:30
DX: T83.098A Other mechanical complication of other urinary catheter, initial encounter (principal); E11.9 Type 2 diabetes mellitus without complications; J44.89 Other specified chronic obstructive pulmonary disease; I50.9 Heart failure, unspecified; Z98.890 Other specified postprocedural states; Z88.5 Allergy status to narcotic agent; Z88.6 Allergy status to analgesic agent; Z88.8 Allergy status to other drugs, medicaments and biological substances; Y92.89 Other specified places as the place of occurrence of the external cause